=== PATIENT | male | born 1940 | race Caucasian/White ===

== ENCOUNTER 2019-10-13 15:43 | Inpatient (IN) | payer OTHER ==
--- NOTE | 2019-10-13 15:52 | EDM.PDOC ---
ED HPI GENERAL MEDICAL PROBLEM - General Chief Complaint: Respiratory Problem Stated Complaint: PNEUMONIA Time Seen by Provider: 10/13/19 15:45 - History of Present Illness INITIAL COMMENTS - FREE TEXT/NARRATIVE: HISTORY AND PHYSICAL: History of present illness: Vision is 71-year-old male who follows at the [facility] but is new to this area and has a history of coronary artery disease with a stent COPD diabetes chronic pain and to side the provider at the [facility] last week on October 05 for cold symptoms for several days and had a chest x-ray here at our hospital; the chest x-ray revealed increased densities in bilateral lower lobes and it was a question of fluid versus pneumonia and the patient was given a Z-Reed. He took the Z-Reed and said he did feel somewhat better with the symptoms have returned and worsened. He says he is buddhism about using his nebulizer as scheduled and takes his medications which does include Bumex and he has a history of congestive heart failure. The patient denies any pain or fevers with this and has no current chest pain and feels intermittently short of breath. He has had a cough productive of phlegm which she says is greenish but he has not had documented fever or chills. His abdominal pain and was eating and drinking normally with normal urine output. The patient says that he does not sleep in bed and he sleeps in a recliner but he has no leg pain or swelling. The symptoms are very protracted and seemed to have progressed over the last 1 week and as the patient is new to the area and is not very well known by the provider at the [facility] and his prior provider was back at home in [place] teasing what is new and what is different is challenging. It appears to me that the patient feels that his shortness of breath cough productive of phlegm and generalized weakness is what is new. Feeling like he is improving since he took the antibiotics. Review of systems: As per history of present illness and below otherwise all systems reviewed and negative. Past medical history: As per history of present illness and as reviewed below otherwise noncontributory. Surgical history: As per history of present illness and as reviewed below otherwise noncontributory. Social history: No reported history of drug or alcohol abuse. Family history: As per history of present illness and as reviewed below otherwise noncontributory. Physical exam: : Well-developed well-nourished overweight man who is nontoxic and not breathless on evaluation. Vital signs are noted by me HEENT: Atraumatic, normocephalic, negative for conjunctival pallor or scleral icterus, mucous membranes moist, throat clear, neck supple, nontender, trachea midline. Lungs: Poor air exchange bilaterally but worse in the bases to mid field with some crackles and rales and fine wheezing is appreciated, there is no work or breathing breath sounds equal bilaterally, chest nontender. Heart: S1S2, regular, negative for clicks, rubs, or overt murmurs Abdomen: Soft, nondistended, nontender. Negative for masses or hepatosplenomegaly. Negative for costovertebral tenderness. Pelvis: Stable nontender. Genitourinary: Deferred. Rectal: Deferred. Extremities: Atraumatic, negative for cords or calf pain. Neurovascular unremarkable. No pedal edema or leg asymmetry Neuro: Awake, alert, oriented. Cranial nerves II through XII unremarkable. Cerebellum unremarkable. Motor and sensory unremarkable throughout. Exam nonfocal. Diagnostics: EKG CBC CMP BNP INR UA lactic acid chest x-ray blood cultures Therapeutics: IV O2 monitor DuoNeb solu- Medrol dose and Lasix Zosyn Patient is not feeling any improved after the DuoNeb and he still very oxygen dependent and is using 3 L nasal cannula and in the ED is currently satting 95% . He has been using this amount of oxygen for quite some time. 181: Case was discussed with Dr. Nowak and she would like a dose of Lasix 40 mg to be given as well as blood cultures to be done and Zosyn IV antibiotics and she agrees that there is probably some fluid overload and pneumonia and she would like an inpatient telemetry admission. I discussed all testing results with the patient and daughter at bedside and care plan for admission Impression: Bibasilar pneumonia, fluid overload, history of COPD oxygen dependent Definitive disposition and diagnosis as appropriate pending reevaluation and review of above. - Related Data Allergies Allergy/AdvReac Type Severity Reaction Status Date / Time atorvastatin Allergy Other Verified 10/13/19 16:06 bupropion [From Wellbutrin] Allergy Other Verified 10/13/19 16:12 duloxetine HCl Allergy Rash Verified 10/13/19 15:52 [From Cymbalta] Iodinated Contrast Media Allergy Other Verified 10/13/19 16:08 meloxicam Allergy Other Verified 10/13/19 16:08 metformin Allergy Other Verified 10/13/19 16:11 naproxen Allergy Other Verified 10/13/19 16:09 paroxetine Allergy Other Verified 10/13/19 16:10 sertraline HCl [From Zoloft] Allergy Rash Verified 10/13/19 15:52 venlafaxine [From Effexor] Allergy oth Verified 10/13/19 16:07 Home Meds: Home Meds Albuterol Sulfate [Albuterol Sulfate Hfa] 2 inh IH Q6H PRN 10/13/19 [History] Albuterol/Ipratropium [DuoNeb 3.0-0.5 MG/3 ML] 3 ml NEB Q6H 10/13/19 [History] Aspirin [Ecotrin EC] 81 mg PO DAILY 10/13/19 [History] Budesonide/Formoterol Fumarate [Symbicort 160-4.5 Mcg Inhaler] 2 inh IH Q12H [History] Citalopram [Citalopram HBr] 10 mg PO DAILY 10/13/19 [History] Clopidogrel [Plavix] 75 mg PO DAILY 10/13/19 [History] Diclofenac Sodium [Voltaren 1% Gel] 4 gm TOP QID PRN MDD total body dose 32gm max 10/13/19 [History] Gabapentin [Neurontin] 300 mg PO BID@,18 10/13/19 [History] Gabapentin [Neurontin] 600 mg PO BID 10/13/19 [History] Hydrocodone/Acetaminophen [Hollister 10-325 Tablet] 10 - 325 mg PO TID PRN 10/13/19 [History] Insulin Aspart [NovoLOG] 12 unit SUBCUT BID@,12 10/13/19 [History] Insulin Aspart [NovoLOG] 15 unit SUBCUT WITHDINNER 10/13/19 [History] Insulin Glarg,Human.Rec.Analog [Lantus Solostar] 28 unit SUBCUT BID 10/13/19 [ History] Lidocaine 5% [Lidoderm 5%] 2 patch TD .ON 12 HR, OFF 12 HR 10/13/19 [History] Metoprolol Tartrate 50 mg PO BID 10/13/19 [History] [place]-3/DHA/Epa/Fish Oil [Fish Oil 1,000 mg Softgel] 1,000 mg PO BID 10/13/19 [ History] Pantoprazole [ProTONIX] 40 mg PO DAILY 10/13/19 [History] Polyethylene Glycol 3350 [MiraLAX] 17 gm PO DAILY 10/13/19 [History] Rosuvastatin Calcium [Crestor] 40 mg PO BEDTIME 10/13/19 [History] Spironolactone [Aldactone] 50 mg PO DAILY 10/13/19 [History] metFORMIN HCl [Metformin HCl ER] 750 mg PO WITHBREAKFAST 10/13/19 [History] ED ROS GENERAL - Review of Systems Review Of Systems: Comprehensive ROS is negative, except as noted in HPI. ED EXAM, GENERAL - Physical Exam Exam: See Below (see Dictation) Course - Vital Signs Last Recorded V/S: Last Vital Signs Temp 36.6 C 10/13/19 15:47 Pulse 92 10/13/19 18:09 Resp 18 10/13/19 18:09 BP 130/72 10/13/19 18:09 Pulse Ox 95 10/13/19 18:09 - Orders/Labs/Meds Orders: Active Orders 24 hr Category Date Time Status Patient Status [ADT] Stat ADT 10/13/19 18:15 Ordered Blood Glucose Check, Bedside [RC] ONETIME Care 10/13/19 16:18 Active Cardiac Monitoring [RC] . DIRECTED Care 10/13/19 16:17 Active EKG Documentation Completion [RC] STAT Care 10/13/19 16:17 Active Oxygen Therapy, ED [RC] ASDIRECTED Care 10/13/19 16:17 Active Pulse Oximetry [RC] ASDIRECTED Care 10/13/19 16:17 Active RT Aerosol Therapy [RC] ASDIRECTED Care 10/13/19 16:19 Active B-TYPE NATRIURETIC PEPTIDE,BNP [CHEM] Stat Lab 10/13/19 17:12 Received CULTURE BLOOD [BC] Stat Lab 10/13/19 18:14 Ordered CULTURE BLOOD [BC] Stat Lab 10/13/19 18:14 Ordered UA RFX CHARLENE AND CULT IF INDIC [URIN] Stat Lab 10/13/19 16:19 Ordered Furosemide [Lasix] Med 10/13/19 18:14 Once 40 mg IVPUSH NOW ONE Piperacillin/Tazobactam [Piperacil-Tazobact] 4.5 gm Med 10/13/19 18:14 Ordered Sodium Chloride 0.9% [Normal Saline] 100 ml IV ONETIME Sodium Chloride 0.9% [Saline Flush] Med 10/13/19 16:19 Active 10 ml FLUSH ASDIRECTED PRN Sodium Chloride 0.9% [Saline Flush] Med 10/13/19 16:19 Active 2.5 ml FLUSH ASDIRECTED PRN Blood Culture x2 Reflex Set [OM.PC] Stat Ot 10/13/19 18:14 Ordered Saline Lock Insert [OM.PC] Stat Ot 10/13/19 16:17 Ordered Medication Orders Sodium Chloride (Saline Flush) 10 ml FLUSH ASDIRECTED PRN PRN Reason: Keep Vein Open Sodium Chloride (Saline Flush) 2.5 ml FLUSH ASDIRECTED PRN PRN Reason: Keep Vein Open Labs: Laboratory Tests 10/13/19 10/13/19 10/13/19 Range/Units 17:12 17:12 17:12 WBC 14.61 H (4.0-11.0) K/uL RBC 4.85 (4.50-5.90) M/uL Hgb 14.1 (13.0-17.0) g/dL Hct 43.8 (38.0-50.0) % MCV 90.3 (80.0-98.0) fL MCH 29.1 (27.0-32.0) pg MCHC 32.2 (31.0-37.0) g/dL RDW Std Deviation 51.2 (28.0-62.0) fl RDW Coeff of Rocco 15 (11.0-15.0) % Plt Count 288 (150-400) K/uL MPV 9.90 (7.40-12.00) fL Neut % (Auto) 59.6 (48.0-80.0) % Lymph % (Auto) 33.7 (16.0-40.0) % [place] % (Auto) 5.5 (0.0-15.0) % Eos % (Auto) 1.0 (0.0-7.0) % Baso % (Auto) 0.2 (0.0-1.5) % Neut # (Auto) 8.7 H (1.4-5.7) K/uL Lymph # (Auto) 4.9 H (0.6-2.4) K/uL [place] # (Auto) 0.8 (0.0-0.8) K/uL Eos # (Auto) 0.2 (0.0-0.7) K/uL Baso # (Auto) 0.0 (0.0-0.1) K/uL Nucleated RBC % 0.0 /100WBC Nucleated RBCs # 0 K/uL INR 0.96 Lactate (0.20-2.00) mmol/L Sodium 139 (136-148) mmol/L Potassium 4.8 (3.5-5.1) mmol/L Chloride 96 L (98-107) mmol/L Carbon Dioxide 37.2 H (21.0-32.0) mmol/L BUN 25 H (7.0-18.0) mg/dL Creatinine 1.1 (0.8-1.3) mg/dL Est Cr Clr Drug Dosing 57.15 mL/min Estimated GFR (MDRD) > 60.0 ml/min Glucose 253 H (74-106) mg/dL POC Glucose (60-110) mg/dL Calcium 9.4 (8.5-10.1) mg/dL Total Bilirubin 0.2 (0.2-1.0) mg/dL AST 13 L (15-37) IU/L ALT 21 (14-63) IU/L Alkaline Phosphatase 106 (46-116) U/L Troponin I < 0.050 (0.000-0.056) ng/mL Total Protein 7.4 (6.4-8.2) g/dL Albumin 3.4 (3.4-5.0) g/dL Globulin 4.0 (2.6-4.0) g/dL Albumin/Globulin Ratio 0.9 (0.9-1.6) 10/13/19 10/13/19 Range/Units 17:12 17:15 WBC (4.0-11.0) K/uL RBC (4.50-5.90) M/uL Hgb (13.0-17.0) g/dL Hct (38.0-50.0) % MCV (80.0-98.0) fL MCH (27.0-32.0) pg MCHC (31.0-37.0) g/dL RDW Std Deviation (28.0-62.0) fl RDW Coeff of Rocco (11.0-15.0) % Plt Count (150-400) K/uL MPV (7.40-12.00) fL Neut % (Auto) (48.0-80.0) % Lymph % (Auto) (16.0-40.0) % [place] % (Auto) (0.0-15.0) % Eos % (Auto) (0.0-7.0) % Baso % (Auto) (0.0-1.5) % Neut # (Auto) (1.4-5.7) K/uL Lymph # (Auto) (0.6-2.4) K/uL [place] # (Auto) (0.0-0.8) K/uL Eos # (Auto) (0.0-0.7) K/uL Baso # (Auto) (0.0-0.1) K/uL Nucleated RBC % /100WBC Nucleated RBCs # K/uL INR Lactate 1.9 (0.20-2.00) mmol/L Sodium (136-148) mmol/L Potassium (3.5-5.1) mmol/L Chloride (98-107) mmol/L Carbon Dioxide (21.0-32.0) mmol/L BUN (7.0-18.0) mg/dL Creatinine (0.8-1.3) mg/dL Est Cr Clr Drug Dosing mL/min Estimated GFR (MDRD) ml/min Glucose (74-106) mg/dL POC Glucose 240 H (60-110) mg/dL Calcium (8.5-10.1) mg/dL Total Bilirubin (0.2-1.0) mg/dL AST (15-37) IU/L ALT (14-63) IU/L Alkaline Phosphatase (46-116) U/L Troponin I (0.000-0.056) ng/mL Total Protein (6.4-8.2) g/dL Albumin (3.4-5.0) g/dL Globulin (2.6-4.0) g/dL Albumin/Globulin Ratio (0.9-1.6) Meds: Medications Generic Name Dose Route Start Last Admin Trade Name Freq PRN Reason Stop Dose Admin Sodium Chloride 10 ml 10/13/19 16:19 Saline Flush FLUSH ASDIRECTED PRN Keep Vein Open Sodium Chloride 2.5 ml 10/13/19 16:19 Saline Flush FLUSH ASDIRECTED PRN Keep Vein Open Discontinued Medications Generic Name Dose Route Start Last Admin Trade Name Mariana PRN Reason Stop Dose Admin Albuterol/Ipratropium 3 ml 10/13/19 16:19 10/13/19 16:26 Duoneb 3.0-0.5 Mg/3 Ml NEB 10/13/19 16:20 3 ml ONETIME ONE Administration Methylprednisolone Sodium Succinate 125 mg 10/13/19 16:19 10/13/19 16:26 Solu-Medrol IVPUSH 10/13/19 16:20 125 mg ONETIME ONE Administration Departure - Departure Time of Disposition: 18:17 Disposition: Admitted As Inpatient 67 Condition: Fair Clinical Impression: Pneumonia Qualifiers: Pneumonia type: due to unspecified organism Fluid overload Qualifiers: Hypervolemia type: unspecified Qualified Code(s): E87.70 - Fluid overload, unspecified - Discharge Information Referrals: PCP,None [Primary Care Provider] - Forms: ED Department Discharge - My Orders Last 24 Hours: My Active Orders 10/13/19 16:17 Cardiac Monitoring [RC] . DIRECTED EKG Documentation Completion [RC] STAT Oxygen Therapy, ED [RC] ASDIRECTED Pulse Oximetry [RC] ASDIRECTED Saline Lock Insert [OM.PC] Stat 10/13/19 16:18 Blood Glucose Check, Bedside [RC] ONETIME 10/13/19 16:19 RT Aerosol Therapy [RC] ASDIRECTED UA RFX CHARLENE AND CULT IF INDIC [URIN] Stat Sodium Chloride 0.9% [Saline Flush] 10 ml FLUSH ASDIRECTED PRN Sodium Chloride 0.9% [Saline Flush] 2.5 ml FLUSH ASDIRECTED PRN 10/13/19 17:12 B-TYPE NATRIURETIC PEPTIDE,BNP [CHEM] Stat 10/13/19 18:14 CULTURE BLOOD [BC] Stat CULTURE BLOOD [BC] Stat Furosemide [Lasix] 40 mg IVPUSH NOW ONE Piperacillin/Tazobactam [Piperacil-Tazobact] 4.5 gm Sodium Chloride 0.9% [ Normal Saline] 100 ml IV ONETIME Blood Culture x2 Reflex Set [OM.PC] Stat 10/13/19 18:15 Patient Status [ADT] Stat - Assessment/Plan Last 24 Hours: My Active Orders 10/13/19 16:17 Cardiac Monitoring [RC] . DIRECTED EKG Documentation Completion [RC] STAT Oxygen Therapy, ED [RC] ASDIRECTED Pulse Oximetry [RC] ASDIRECTED Saline Lock Insert [OM.PC] Stat 10/13/19 16:18 Blood Glucose Check, Bedside [RC] ONETIME 10/13/19 16:19 RT Aerosol Therapy [RC] ASDIRECTED UA RFX CHARLENE AND CULT IF INDIC [URIN] Stat Sodium Chloride 0.9% [Saline Flush] 10 ml FLUSH ASDIRECTED PRN Sodium Chloride 0.9% [Saline Flush] 2.5 ml FLUSH ASDIRECTED PRN 10/13/19 17:12 B-TYPE NATRIURETIC PEPTIDE,BNP [CHEM] Stat 10/13/19 18:14 CULTURE BLOOD [BC] Stat CULTURE BLOOD [BC] Stat Furosemide [Lasix] 40 mg IVPUSH NOW ONE Piperacillin/Tazobactam [Piperacil-Tazobact] 4.5 gm Sodium Chloride 0.9% [ Normal Saline] 100 ml IV ONETIME Blood Culture x2 Reflex Set [OM.PC] Stat 10/13/19 18:15 Patient Status [ADT] Stat
[2019-10-13] MEDS ORDERED: Sodium Chloride 0.9% 2.5 ML Syringe FLUSH PRN (16:19)
[2019-10-13] MEDS ORDERED: Albuterol/Ipratropium 3.0-0.5 MG/3 ML Neb Soln NEB ONE (16:19)
[2019-10-13] MEDS ORDERED: Sodium Chloride 0.9% 10 ML Syringe FLUSH PRN (16:19)
[2019-10-13] MEDS ORDERED: methylPREDNISolone Sodium Succinate 125 MG/2 ML SDV IVPUSH ONE (16:19)
--- NOTE | 2019-10-13 17:13 | CR ---
Indication: Shortness of breath. Technique: A single AP portable view of the chest was obtained. Comparison: October 05, 2019. Findings: The heart is enlarged. A left pleural effusion is identified. Bibasilar atelectasis and/or infiltrates are improved. No pneumothorax is identified. Impression: Improved aeration bilaterally. Dictated by Iveth Mello MD @ Oct 13 2019 5:09PM Signed by Dr. Iveth Mello @ Oct 13 2019 5:10PM
[2019-10-13 18:00] LABS: BLOOD UREA NITROGEN,BUN 25 mg/dL (7.0-18.0); CARBON DIOXIDE,CO2 37.2 mmol/L (21.0-32.0); CHLORIDE,CL 96 mmol/L (98-107); GLUCOSE RANDOM 253 mg/dL (74-106); POTASSIUM,K 4.8 mmol/L (3.5-5.1); SODIUM,NA 139 mmol/L (136-148)
[2019-10-13] MEDS ORDERED: Piperacillin/Tazobactam 4.5 GM in Sodium Chloride 0.9% 100 ML IV ONE (18:14)
[2019-10-13] MEDS ORDERED: Furosemide 40 MG/4 ML VIAL IVPUSH ONE (18:14)
[2019-10-13] MEDS ORDERED: Acetaminophen 325 MG Tab PO PRN (18:43)
[2019-10-13] MEDS ORDERED: Morphine 10 MG/ML Syringe IVPUSH PRN (18:43)
[2019-10-13] MEDS ORDERED: Ondansetron 4 MG Tab.DIS PO PRN (18:43)
[2019-10-13] MEDS ORDERED: Ondansetron 4 MG/2 ML SDV IVPUSH PRN (18:43)
[2019-10-13] MEDS ORDERED: Sodium Chloride 0.9% 1,000 ML IV ONE (18:58)
[2019-10-13] MEDS: cefTRIAXone 1 GM in Premix Bag 1 BAG IV SCH (19:06)
[2019-10-13] MEDS: Enoxaparin 40 MG/0.4 ML Syringe SUBCUT SCH (19:36)
--- NOTE | 2019-10-13 20:06 | PCM.HP.2 ---
<Cherelle Joel Nolan - Last Filed: 10/13/19 20:09> H&P History of Present Illness - General Date of Service: 10/13/19 Admit Problem/Dx: Admission Diagnosis/Problem Admission Diagnosis/Problem Pneumonia - History of Present Illness Initial Comments - Free Text/Narative: 79 y/o male with history of CAD s/p stent placement, COPD, Diabetes type 2 who presented to the ER complaining of worsening shortness of breath. Patient had been seen at the [facility] about 1 week ago for pneumonia and given z-pack, however, it did not help. He continues to have a productive cough, subjective fevers. Worsening shortness of breath. No nausea or vomiting. No chest pain, abdominal pain, dysuria, diarrhea. States he has been taking his meds as directed. uses supplemental O2 at home at 3 L. Recently moved from [place] with his daughter. No smoking or drinking. In the ER , he was found to have WBC 14K, tachypneic. He was given one dose of lasix for suspected fluid overload since chest xray showed left pleural effusion and infiltrates. - Related Data Allergies/Adverse Reactions: Allergies Allergy/AdvReac Type Severity Reaction Status Date / Time atorvastatin Allergy Other Verified 10/14/19 12:51 bupropion [From Wellbutrin] Allergy Other Verified 10/14/19 12:51 duloxetine HCl Allergy Rash Verified 10/14/19 12:51 [From Cymbalta] Iodinated Contrast Media Allergy Other Verified 10/14/19 12:51 meloxicam Allergy Other Verified 10/14/19 12:51 metformin Allergy Other Verified 10/14/19 12:51 naproxen Allergy Other Verified 10/14/19 12:51 paroxetine Allergy Other Verified 10/14/19 12:51 sertraline HCl [From Zoloft] Allergy Rash Verified 10/14/19 12:51 venlafaxine [From Effexor] Allergy oth Verified 10/14/19 12:51 Home Medications: Home Meds Albuterol Sulfate [Albuterol Sulfate Hfa] 2 inh IH Q6H PRN 10/13/19 [History] Albuterol/Ipratropium [DuoNeb 3.0-0.5 MG/3 ML] 3 ml NEB Q6H 10/13/19 [History] Aspirin [Ecotrin EC] 81 mg PO DAILY 10/13/19 [History] Budesonide/Formoterol Fumarate [Symbicort 160-4.5 Mcg Inhaler] 2 inh IH Q12H [History] Citalopram [Citalopram HBr] 10 mg PO DAILY 10/13/19 [History] Clopidogrel [Plavix] 75 mg PO DAILY 10/13/19 [History] Diclofenac Sodium [Voltaren 1% Gel] 4 gm TOP QID PRN MDD total body dose 32gm max 10/13/19 [History] Gabapentin [Neurontin] 300 mg PO BID@12,18 10/13/19 [History] Gabapentin [Neurontin] 600 mg PO BID 10/13/19 [History] Hydrocodone/Acetaminophen [[place] 10-325 Tablet] 10 - 325 mg PO TID PRN 10/13/19 [History] Insulin Aspart [NovoLOG] 12 unit SUBCUT BID@08,12 10/13/19 [History] Insulin Aspart [NovoLOG] 15 unit SUBCUT WITHDINNER 10/13/19 [History] Insulin Glarg,Human.Rec.Analog [Lantus Solostar] 28 unit SUBCUT BID 10/13/19 [ History] Lidocaine 5% [Lidoderm 5%] 2 patch TD .ON 12 HR, OFF 12 HR 10/13/19 [History] Metoprolol Tartrate 50 mg PO BID 10/13/19 [History] [place]-3/DHA/Epa/Fish Oil [Fish Oil 1,000 mg Softgel] 1,000 mg PO BID 10/13/19 [ History] Pantoprazole [ProTONIX] 40 mg PO DAILY 10/13/19 [History] Polyethylene Glycol 3350 [MiraLAX] 17 gm PO DAILY 10/13/19 [History] Rosuvastatin Calcium [Crestor] 40 mg PO BEDTIME 10/13/19 [History] Spironolactone [Aldactone] 50 mg PO DAILY 10/13/19 [History] metFORMIN HCl [Metformin HCl ER] 750 mg PO WITHBREAKFAST 10/13/19 [History] Nitroglycerin 1 tab SL ASDIRECTED PRN MDD may take up to 3 within 15 min [History] Past Medical History HEENT History: Reports: None Cardiovascular History: Reports: Stents Respiratory History: Reports: Asthma, COPD Gastrointestinal History: Reports: Diverticulosis Genitourinary History: Reports: None Musculoskeletal History: Reports: None Neurological History: Reports: None Psychiatric History: Reports: Anxiety, Depression, Panic Attack Endocrine/Metabolic History: Reports: Diabetes, Type II Hematologic History: Reports: None Immunologic History: Reports: None Oncologic (Cancer) History: Reports: None Dermatologic History: Reports: None - Infectious Disease History Infectious Disease History: Reports: None - Past Surgical History Head Surgeries/Procedures: Reports: None Other Cardiovascular Surgeries/Procedures: 2004 2017 GI Surgical History: Reports: Colonoscopy Male Surgical History: Reports: None Social & Family History - Tobacco Use Smoking Status *Q: Never Smoker Second Hand Smoke Exposure: No - Caffeine Use Caffeine Use: Reports: None - Recreational Drug Use Recreational Drug Use: No H&P Review of Systems - Review of Systems: Review Of Systems: Comprehensive ROS is negative, except as noted in HPI. Exam - Exam Exam: See Below - Vital Signs Vital Signs: Last Vital Signs Temp 35.8 C 10/13/19 18:41 Pulse 98 10/13/19 19:38 Resp 24 H 10/13/19 19:38 BP 130/75 10/13/19 19:38 Pulse Ox 96 10/13/19 19:38 Weight: 113.398 kg - Exam Quality Assessment: Supplemental Oxygen General: Alert, Oriented, Cooperative HEENT: Other (dry mucosa) Lungs: Other (decreased breath sounds bilaterally, crackles with some mild wheezing.) Cardiovascular: Regular Rate, Regular Rhythm GI/Abdominal Exam: Normal Bowel Sounds, Soft, Non-Tender, No Distention Extremities: Normal Inspection, Non-Tender, No Pedal Edema Skin: Warm, Dry - Patient Data Lab Results Last 24 hrs: Laboratory Results - last 24 hr 10/13/19 10/13/19 10/13/19 Range/Units 17:12 17:12 17:12 WBC 14.61 H (4.0-11.0) K/uL RBC 4.85 (4.50-5.90) M/uL Hgb 14.1 (13.0-17.0) g/dL Hct 43.8 (38.0-50.0) % MCV 90.3 (80.0-98.0) fL MCH 29.1 (27.0-32.0) pg MCHC 32.2 (31.0-37.0) g/dL RDW Std Deviation 51.2 (28.0-62.0) fl RDW Coeff of Rocco 15 (11.0-15.0) % Plt Count 288 (150-400) K/uL MPV 9.90 (7.40-12.00) fL Neut % (Auto) 59.6 (48.0-80.0) % Lymph % (Auto) 33.7 (16.0-40.0) % [place] % (Auto) 5.5 (0.0-15.0) % Eos % (Auto) 1.0 (0.0-7.0) % Baso % (Auto) 0.2 (0.0-1.5) % Neut # (Auto) 8.7 H (1.4-5.7) K/uL Lymph # (Auto) 4.9 H (0.6-2.4) K/uL [place] # (Auto) 0.8 (0.0-0.8) K/uL Eos # (Auto) 0.2 (0.0-0.7) K/uL Baso # (Auto) 0.0 (0.0-0.1) K/uL Nucleated RBC % 0.0 /100WBC Nucleated RBCs # 0 K/uL INR Lactate (0.20-2.00) mmol/L Sodium 139 (136-148) mmol/L Potassium 4.8 (3.5-5.1) mmol/L Chloride 96 L (98-107) mmol/L Carbon Dioxide 37.2 H (21.0-32.0) mmol/L BUN 25 H (7.0-18.0) mg/dL Creatinine 1.1 (0.8-1.3) mg/dL Est Cr Clr Drug Dosing 57.15 mL/min Estimated GFR (MDRD) > 60.0 ml/min Glucose 253 H (74-106) mg/dL POC Glucose (60-110) mg/dL Calcium 9.4 (8.5-10.1) mg/dL Total Bilirubin 0.2 (0.2-1.0) mg/dL AST 13 L (15-37) IU/L ALT 21 (14-63) IU/L Alkaline Phosphatase 106 (46-116) U/L Troponin I < 0.050 (0.000-0.056) ng/mL B-Natriuretic Peptide 8 (<100) PG/ML Total Protein 7.4 (6.4-8.2) g/dL Albumin 3.4 (3.4-5.0) g/dL Globulin 4.0 (2.6-4.0) g/dL Albumin/Globulin Ratio 0.9 (0.9-1.6) 10/13/19 10/13/19 10/13/19 Range/Units 17:12 17:12 17:15 WBC (4.0-11.0) K/uL RBC (4.50-5.90) M/uL Hgb (13.0-17.0) g/dL Hct (38.0-50.0) % MCV (80.0-98.0) fL MCH (27.0-32.0) pg MCHC (31.0-37.0) g/dL RDW Std Deviation (28.0-62.0) fl RDW Coeff of Rocco (11.0-15.0) % Plt Count (150-400) K/uL MPV (7.40-12.00) fL Neut % (Auto) (48.0-80.0) % Lymph % (Auto) (16.0-40.0) % [place] % (Auto) (0.0-15.0) % Eos % (Auto) (0.0-7.0) % Baso % (Auto) (0.0-1.5) % Neut # (Auto) (1.4-5.7) K/uL Lymph # (Auto) (0.6-2.4) K/uL [place] # (Auto) (0.0-0.8) K/uL Eos # (Auto) (0.0-0.7) K/uL Baso # (Auto) (0.0-0.1) K/uL Nucleated RBC % /100WBC Nucleated RBCs # K/uL INR 0.96 Lactate 1.9 (0.20-2.00) mmol/L Sodium (136-148) mmol/L Potassium (3.5-5.1) mmol/L Chloride (98-107) mmol/L Carbon Dioxide (21.0-32.0) mmol/L BUN (7.0-18.0) mg/dL Creatinine (0.8-1.3) mg/dL Est Cr Clr Drug Dosing mL/min Estimated GFR (MDRD) ml/min Glucose (74-106) mg/dL POC Glucose 240 H (60-110) mg/dL Calcium (8.5-10.1) mg/dL Total Bilirubin (0.2-1.0) mg/dL AST (15-37) IU/L ALT (14-63) IU/L Alkaline Phosphatase (46-116) U/L Troponin I (0.000-0.056) ng/mL B-Natriuretic Peptide (<100) PG/ML Total Protein (6.4-8.2) g/dL Albumin (3.4-5.0) g/dL Globulin (2.6-4.0) g/dL Albumin/Globulin Ratio (0.9-1.6) Result Diagrams: 10/13/19 17:12 10/13/19 17:12 Problem List Initiated/Reviewed/Updated: Yes Orders Last 24hrs: Active Orders 24 hr Category Date Time Status Patient Status [ADT] Stat ADT 10/13/19 18:15 Active Blood Glucose Check, Bedside [RC] QIDACANDBED Care 10/13/19 18:43 Active Cardiac Monitoring [RC] . DIRECTED Care 10/13/19 16:17 Active Intake and Output [RC] QSHIFT Care 10/13/19 18:43 Active Oxygen Therapy [RC] PRN Care 10/13/19 18:43 Active RT Aerosol Therapy [RC] ASDIRECTED Care 10/13/19 16:19 Active RT Aerosol Therapy [RC] ASDIRECTED Care 10/13/19 18:45 Active Up With Assistance [RC] ASDIRECTED Care 10/13/19 18:43 Active VTE/DVT Education [RC] PER UNIT ROUTINE Care 10/13/19 18:43 Active Vital Signs [RC] Q4H Care 10/13/19 18:43 Active [employer] Diet [DIET] Diet 10/13/19 Dinner Active CBC WITH AUTO DIFF [HEME] AM Lab 10/14/19 05:11 Ordered CBC WITH AUTO DIFF [HEME] AM Lab 10/15/19 05:11 Ordered CBC WITH AUTO DIFF [HEME] AM Lab 10/16/19 05:11 Ordered COMPREHENSIVE METABOLIC PN,CMP [CHEM] AM Lab 10/14/19 05:11 Ordered COMPREHENSIVE METABOLIC PN,CMP [CHEM] AM Lab 10/15/19 05:11 Ordered COMPREHENSIVE METABOLIC PN,CMP [CHEM] AM Lab 10/16/19 05:11 Ordered CULTURE BLOOD [BC] Stat Lab 10/13/19 18:38 Received CULTURE BLOOD [BC] Stat Lab 10/13/19 18:49 Received CULTURE SPUTUM + SMEAR [RM] Routine Lab 10/13/19 19:58 Ordered INFLUENZA A+B AG SCREEN [RM] Routine Lab 10/13/19 18:56 Ordered LEGIONELLA ANTIGEN [MREF] Routine Lab 10/13/19 18:55 Ordered STREP PNEUMONIAE ANTIGEN [MREF] Routine Lab 10/13/19 18:55 Ordered UA RFX JASON AND CULT IF INDIC [URIN] Stat Lab 10/13/19 16:19 Ordered Acetaminophen [Tylenol] Med 10/13/19 18:43 Active 650 mg PO Q4H PRN Albuterol/Ipratropium [DuoNeb 3.0-0.5 MG/3 ML] Med 10/13/19 18:43 Active 3 ml NEB Q4HRRT PRN Aspirin [Halfprin] Med 10/14/19 09:00 Active 81 mg PO DAILY Azithromycin [Zithromax] 500 mg Med 10/13/19 19:00 Active Sodium Chloride 0.9% [Normal Saline (AdvBag)] 250 ml IV DAILY Benzonatate [Tessalon Perles] Med 10/13/19 21:00 Ordered 200 mg PO BID Clopidogrel [Plavix] Med 10/14/19 09:00 Active 75 mg PO DAILY Codeine/guaiFENesin [Robitussin AC] Med 10/13/19 19:58 Ordered 5 ml PO Q6H PRN Enoxaparin [Lovenox] Med 10/13/19 18:45 Active 40 mg SUBCUT Q24H Insulin Aspart [NovoLOG] Med 10/14/19 07:30 Active See Protocol SUBCUT TIDAC Morphine Med 10/13/19 18:43 Active 2 mg IVPUSH Q2H PRN Ondansetron [Zofran ODT] Med 10/13/19 18:43 Active 4 mg PO Q4H PRN Ondansetron [Zofran] Med 10/13/19 18:43 Active 4 mg IVPUSH Q4H PRN Pantoprazole [ProTONIX] Med 10/14/19 09:00 Active 40 mg PO DAILY Sodium Chloride 0.9% [Normal Saline] 1,000 ml Med 10/13/19 18:58 Active IV STAT Sodium Chloride 0.9% [Saline Flush] Med 10/13/19 16:19 Active 10 ml FLUSH ASDIRECTED PRN Sodium Chloride 0.9% [Saline Flush] Med 10/13/19 16:19 Active 2.5 ml FLUSH ASDIRECTED PRN cefTRIAXone [Rocephin in Dextrose,Iso-Osm 1 GM/50 ML] 1 Med 10/13/19 19:00 Active gm Premix Bag 1 bag IV Q24H methylPREDNISolone Sod Succ [Solu-MEDROL] Med 10/14/19 09:00 Ordered 40 mg IVPUSH DAILY Blood Culture x2 Reflex Set [OM.PC] Stat Oth 10/13/19 18:14 Ordered Saline Lock Insert [OM.PC] Stat Oth 10/13/19 16:17 Ordered Resuscitation Status Routine Resus Stat 10/13/19 18:43 Ordered Medication Orders Acetaminophen (Tylenol) 650 mg PO Q4H PRN PRN Reason: Pain (Mild 1-3)/fever Albuterol/Ipratropium (Duoneb 3.0-0.5 Mg/3 Ml) 3 ml NEB Q4HRRT PRN PRN Reason: Shortness Of Breath/wheezing Aspirin (Halfprin) 81 mg PO DAILY [facility] Clopidogrel Bisulfate (Plavix) 75 mg PO DAILY [facility] Enoxaparin Sodium (Lovenox) 40 mg SUBCUT Q24H [facility] Last Admin: 10/13/19 19:36 Dose: 40 mg Guaifenesin/Codeine Phosphate (Robitussin Ac) 5 ml PO Q6H PRN PRN Reason: Cough Azithromycin 500 mg/ Sodium (Chloride) 250 mls @ 250 mls/hr IV DAILY [facility] Ceftriaxone Sodium/Dextrose 1 (gm/ Premix) 50 mls @ 100 mls/hr IV Q24H [facility] Last Admin: 10/13/19 19:06 Dose: 100 mls/hr Sodium Chloride (Normal Saline) 1,000 mls @ 150 mls/hr IV STAT ONE Stop: 10/14/19 01:37 Last Admin: 10/13/19 19:06 Dose: 150 mls/hr Insulin Aspart (Novolog) 0 unit SUBCUT TIDAC MAGEN; Protocol Morphine Sulfate (Morphine) 2 mg IVPUSH Q2H PRN PRN Reason: Pain (severe 7-10) Stop: 10/14/19 18:44 Ondansetron HCl (Zofran Odt) 4 mg PO Q4H PRN PRN Reason: nausea, able to take PO Ondansetron HCl (Zofran) 4 mg IVPUSH Q4H PRN PRN Reason: Nausea Pantoprazole Sodium (Protonix) 40 mg PO DAILY [facility] Sodium Chloride (Saline Flush) 10 ml FLUSH ASDIRECTED PRN PRN Reason: Keep Vein Open Sodium Chloride (Saline Flush) 2.5 ml FLUSH ASDIRECTED PRN PRN Reason: Keep Vein Open Assessment/Plan Comment:: A: 1. Sepsis 2/2 community acquired pneumonia vs COPD exacerbation 2. Leukocytosis 3. PMH COPD, DM2 P: 1. Will start ceftriaxone and azithromycin for suspected CAP vs COPD exacerbation. Continue methylprednisolone 40 mg IV daily. duonebs PRN. Added cough syrup and tessalon perles for cough. Will start maintenance fluids since patient looks overall dry with serum osm 300. Did not bolus patient due to suspicion for fluid overload. Accuchecks and ISS. Dispo: 2-3 days <Carmen Tineo - Last Filed: 10/16/19 09:30> H&P History of Present Illness - General Admit Problem/Dx: Admission Diagnosis/Problem Admission Diagnosis/Problem Pneumonia Exam - Vital Signs Vital Signs: Last Vital Signs Temp 35.7 C 10/16/19 07:53 Pulse 97 10/16/19 09:16 Resp 17 10/16/19 07:53 BP 160/73 H 10/16/19 09:16 Pulse Ox 94 L 10/16/19 07:53 - Patient Data Lab Results Last 24 hrs: Laboratory Results - last 24 hr 10/15/19 10/15/19 10/15/19 Range/Units 05:20 05:20 11:53 WBC (4.0-11.0) K/uL RBC (4.50-5.90) M/uL Hgb (13.0-17.0) g/dL Hct (38.0-50.0) % MCV (80.0-98.0) fL MCH (27.0-32.0) pg MCHC (31.0-37.0) g/dL RDW Std Deviation (28.0-62.0) fl RDW Coeff of Rocco (11.0-15.0) % Plt Count (150-400) K/uL MPV (7.40-12.00) fL Neut % (Auto) (48.0-80.0) % Lymph % (Auto) (16.0-40.0) % [place] % (Auto) (0.0-15.0) % Eos % (Auto) (0.0-7.0) % Baso % (Auto) (0.0-1.5) % Neut # (Auto) (1.4-5.7) K/uL Lymph # (Auto) (0.6-2.4) K/uL [place] # (Auto) (0.0-0.8) K/uL Eos # (Auto) (0.0-0.7) K/uL Baso # (Auto) (0.0-0.1) K/uL Nucleated RBC % /100WBC Nucleated RBCs # K/uL Sodium (136-148) mmol/L Potassium (3.5-5.1) mmol/L Chloride (98-107) mmol/L Carbon Dioxide (21.0-32.0) mmol/L BUN (7.0-18.0) mg/dL Creatinine (0.8-1.3) mg/dL Est Cr Clr Drug Dosing mL/min Estimated GFR (MDRD) ml/min Glucose (74-106) mg/dL POC Glucose 281 H (60-110) mg/dL Hemoglobin A1c 9.4 H (4.5-6.2) % Calcium (8.5-10.1) mg/dL Total Bilirubin (0.2-1.0) mg/dL AST (15-37) IU/L ALT (14-63) IU/L Alkaline Phosphatase (46-116) U/L Troponin I (0.000-0.056) ng/mL Total Protein (6.4-8.2) g/dL Albumin (3.4-5.0) g/dL Globulin (2.6-4.0) g/dL Albumin/Globulin Ratio (0.9-1.6) Triglycerides 340 H (0-200) mg/dL Cholesterol 149 (50-200) mg/dL LDL Cholesterol, Calc 53 L (60-180) mg/dL VLDL Cholesterol 68 H (5-55) mg/dL HDL Cholesterol 28 L (40-60) mg/dL Cholesterol/HDL Ratio 5.3 (3.3-6.0) 10/15/19 10/15/19 10/15/19 Range/Units 13:26 14:15 16:50 WBC (4.0-11.0) K/uL RBC (4.50-5.90) M/uL Hgb (13.0-17.0) g/dL Hct (38.0-50.0) % MCV (80.0-98.0) fL MCH (27.0-32.0) pg MCHC (31.0-37.0) g/dL RDW Std Deviation (28.0-62.0) fl RDW Coeff of Rocco (11.0-15.0) % Plt Count (150-400) K/uL MPV (7.40-12.00) fL Neut % (Auto) (48.0-80.0) % Lymph % (Auto) (16.0-40.0) % [place] % (Auto) (0.0-15.0) % Eos % (Auto) (0.0-7.0) % Baso % (Auto) (0.0-1.5) % Neut # (Auto) (1.4-5.7) K/uL Lymph # (Auto) (0.6-2.4) K/uL [place] # (Auto) (0.0-0.8) K/uL Eos # (Auto) (0.0-0.7) K/uL Baso # (Auto) (0.0-0.1) K/uL Nucleated RBC % /100WBC Nucleated RBCs # K/uL Sodium (136-148) mmol/L Potassium (3.5-5.1) mmol/L Chloride (98-107) mmol/L Carbon Dioxide (21.0-32.0) mmol/L BUN (7.0-18.0) mg/dL Creatinine (0.8-1.3) mg/dL Est Cr Clr Drug Dosing mL/min Estimated GFR (MDRD) ml/min Glucose (74-106) mg/dL POC Glucose 307 H 326 H (60-110) mg/dL Hemoglobin A1c (4.5-6.2) % Calcium (8.5-10.1) mg/dL Total Bilirubin (0.2-1.0) mg/dL AST (15-37) IU/L ALT (14-63) IU/L Alkaline Phosphatase (46-116) U/L Troponin I < 0.050 (0.000-0.056) ng/mL Total Protein (6.4-8.2) g/dL Albumin (3.4-5.0) g/dL Globulin (2.6-4.0) g/dL Albumin/Globulin Ratio (0.9-1.6) Triglycerides (0-200) mg/dL Cholesterol (50-200) mg/dL LDL Cholesterol, Calc (60-180) mg/dL VLDL Cholesterol (5-55) mg/dL HDL Cholesterol (40-60) mg/dL Cholesterol/HDL Ratio (3.3-6.0) 10/15/19 10/15/19 10/15/19 Range/Units 17:19 18:27 20:00 WBC (4.0-11.0) K/uL RBC (4.50-5.90) M/uL Hgb (13.0-17.0) g/dL Hct (38.0-50.0) % MCV (80.0-98.0) fL MCH (27.0-32.0) pg MCHC (31.0-37.0) g/dL RDW Std Deviation (28.0-62.0) fl RDW Coeff of Rocco (11.0-15.0) % Plt Count (150-400) K/uL MPV (7.40-12.00) fL Neut % (Auto) (48.0-80.0) % Lymph % (Auto) (16.0-40.0) % [place] % (Auto) (0.0-15.0) % Eos % (Auto) (0.0-7.0) % Baso % (Auto) (0.0-1.5) % Neut # (Auto) (1.4-5.7) K/uL Lymph # (Auto) (0.6-2.4) K/uL [place] # (Auto) (0.0-0.8) K/uL Eos # (Auto) (0.0-0.7) K/uL Baso # (Auto) (0.0-0.1) K/uL Nucleated RBC % /100WBC Nucleated RBCs # K/uL Sodium (136-148) mmol/L Potassium (3.5-5.1) mmol/L Chloride (98-107) mmol/L Carbon Dioxide (21.0-32.0) mmol/L BUN (7.0-18.0) mg/dL Creatinine (0.8-1.3) mg/dL Est Cr Clr Drug Dosing mL/min Estimated GFR (MDRD) ml/min Glucose (74-106) mg/dL POC Glucose 326 H (60-110) mg/dL Hemoglobin A1c (4.5-6.2) % Calcium (8.5-10.1) mg/dL Total Bilirubin (0.2-1.0) mg/dL AST (15-37) IU/L ALT (14-63) IU/L Alkaline Phosphatase (46-116) U/L Troponin I < 0.050 < 0.050 (0.000-0.056) ng/mL Total Protein (6.4-8.2) g/dL Albumin (3.4-5.0) g/dL Globulin (2.6-4.0) g/dL Albumin/Globulin Ratio (0.9-1.6) Triglycerides (0-200) mg/dL Cholesterol (50-200) mg/dL LDL Cholesterol, Calc (60-180) mg/dL VLDL Cholesterol (5-55) mg/dL HDL Cholesterol (40-60) mg/dL Cholesterol/HDL Ratio (3.3-6.0) 10/15/19 10/16/19 10/16/19 Range/Units 20:53 05:45 05:45 WBC 10.86 (4.0-11.0) K/uL RBC 4.50 (4.50-5.90) M/uL Hgb 12.9 L (13.0-17.0) g/dL Hct 40.3 (38.0-50.0) % MCV 89.6 (80.0-98.0) fL MCH 28.7 (27.0-32.0) pg MCHC 32.0 (31.0-37.0) g/dL RDW Std Deviation 50.1 (28.0-62.0) fl RDW Coeff of Rocco 16 H (11.0-15.0) % Plt Count 274 (150-400) K/uL MPV 10.00 (7.40-12.00) fL Neut % (Auto) 82.4 H (48.0-80.0) % Lymph % (Auto) 12.4 L (16.0-40.0) % [place] % (Auto) 5.2 (0.0-15.0) % Eos % (Auto) 0.0 (0.0-7.0) % Baso % (Auto) 0.0 (0.0-1.5) % Neut # (Auto) 8.9 H (1.4-5.7) K/uL Lymph # (Auto) 1.4 (0.6-2.4) K/uL [place] # (Auto) 0.6 (0.0-0.8) K/uL Eos # (Auto) 0.0 (0.0-0.7) K/uL Baso # (Auto) 0.0 (0.0-0.1) K/uL Nucleated RBC % 0.0 /100WBC Nucleated RBCs # 0 K/uL Sodium 138 (136-148) mmol/L Potassium 4.9 (3.5-5.1) mmol/L Chloride 100 (98-107) mmol/L Carbon Dioxide 32.8 H (21.0-32.0) mmol/L BUN 24 H (7.0-18.0) mg/dL Creatinine 1.0 (0.8-1.3) mg/dL Est Cr Clr Drug Dosing 63.02 mL/min Estimated GFR (MDRD) > 60.0 ml/min Glucose 329 H (74-106) mg/dL POC Glucose 385 H (60-110) mg/dL Hemoglobin A1c (4.5-6.2) % Calcium 8.9 (8.5-10.1) mg/dL Total Bilirubin 0.2 (0.2-1.0) mg/dL AST 15 (15-37) IU/L ALT 28 (14-63) IU/L Alkaline Phosphatase 78 (46-116) U/L Troponin I (0.000-0.056) ng/mL Total Protein 6.3 L (6.4-8.2) g/dL Albumin 3.1 L (3.4-5.0) g/dL Globulin 3.2 (2.6-4.0) g/dL Albumin/Globulin Ratio 1.0 (0.9-1.6) Triglycerides (0-200) mg/dL Cholesterol (50-200) mg/dL LDL Cholesterol, Calc (60-180) mg/dL VLDL Cholesterol (5-55) mg/dL HDL Cholesterol (40-60) mg/dL Cholesterol/HDL Ratio (3.3-6.0) 10/16/19 Range/Units 06:19 WBC (4.0-11.0) K/uL RBC (4.50-5.90) M/uL Hgb (13.0-17.0) g/dL Hct (38.0-50.0) % MCV (80.0-98.0) fL MCH (27.0-32.0) pg MCHC (31.0-37.0) g/dL RDW Std Deviation (28.0-62.0) fl RDW Coeff of [place] (11.0-15.0) % Plt Count (150-400) K/uL MPV (7.40-12.00) fL Neut % (Auto) (48.0-80.0) % Lymph % (Auto) (16.0-40.0) % [place] % (Auto) (0.0-15.0) % Eos % (Auto) (0.0-7.0) % Baso % (Auto) (0.0-1.5) % Neut # (Auto) (1.4-5.7) K/uL Lymph # (Auto) (0.6-2.4) K/uL [place] # (Auto) (0.0-0.8) K/uL Eos # (Auto) (0.0-0.7) K/uL Baso # (Auto) (0.0-0.1) K/uL Nucleated RBC % /100WBC Nucleated RBCs # K/uL Sodium (136-148) mmol/L Potassium (3.5-5.1) mmol/L Chloride (98-107) mmol/L Carbon Dioxide (21.0-32.0) mmol/L BUN (7.0-18.0) mg/dL Creatinine (0.8-1.3) mg/dL Est Cr Clr Drug Dosing mL/min Estimated GFR (MDRD) ml/min Glucose (74-106) mg/dL POC Glucose 323 H (60-110) mg/dL Hemoglobin A1c (4.5-6.2) % Calcium (8.5-10.1) mg/dL Total Bilirubin (0.2-1.0) mg/dL AST (15-37) IU/L ALT (14-63) IU/L Alkaline Phosphatase (46-116) U/L Troponin I (0.000-0.056) ng/mL Total Protein (6.4-8.2) g/dL Albumin (3.4-5.0) g/dL Globulin (2.6-4.0) g/dL Albumin/Globulin Ratio (0.9-1.6) Triglycerides (0-200) mg/dL Cholesterol (50-200) mg/dL LDL Cholesterol, Calc (60-180) mg/dL VLDL Cholesterol (5-55) mg/dL HDL Cholesterol (40-60) mg/dL Cholesterol/HDL Ratio (3.3-6.0) Result Diagrams: 10/16/19 05:45 10/16/19 05:45 Jason Results Last 24 hrs: Microbiology 10/13/19 18:49 Aerobic Blood Culture - Preliminary Blood - Venous - Lab Draw NO GROWTH AFTER 2 DAYS Anaerobic Blood Culture - Preliminary NO GROWTH AFTER 2 DAYS 10/13/19 18:38 Aerobic Blood Culture - Preliminary Blood - Venous NO GROWTH AFTER 2 DAYS Anaerobic Blood Culture - Preliminary NO GROWTH AFTER 2 DAYS 10/13/19 23:00 Streptococcus pneumoniae Antigen (M - Final Urine 10/13/19 23:00 Legionella Urinary Antigen - Final Urine Orders Last 24hrs: Active Orders 24 hr Category Date Time Status Neurovascular Check [RC] Q2HR Care 10/15/19 18:10 Active Consult to Physical Therapy [PT Evaluation and Cons 10/16/19 08:30 Active Treatment] [CONS] Routine Ang Neck wo Cont [MR] Urgent Exams 10/15/19 14:41 Ordered Brain wo Cont [MR] Urgent Exams 10/15/19 14:41 Ordered Echo 2D wo Cont [US] Urgent Exams 10/15/19 14:39 Taken Albuterol/Ipratropium [DuoNeb 3.0-0.5 MG/3 ML] Med 10/15/19 22:00 Active 3 ml NEB Q8HRRT Insulin Aspart [NovoLOG] Med 10/15/19 18:13 Active 5 unit SUBCUT TIDAC Insulin Glarg,Human.Rec.Analog [LantUS Solostar] Med 10/16/19 21:00 Active 35 units SUBCUT BEDTIME Polyethylene Glycol 3350 [MiraLAX] Med 10/15/19 09:00 Active 17 gm PO DAILY Medication Orders Acetaminophen (Tylenol) 650 mg PO Q4H PRN PRN Reason: Pain (Mild 1-3)/fever Last Admin: 10/13/19 21:22 Dose: 650 mg Hydrocodone Bitart/Acetaminophen ([place] 325-10 Mg) 1 tab PO Q6H PRN PRN Reason: Pain Last Admin: 10/16/19 07:45 Dose: 1 tab Admin: 10/16/19 01:27 Dose: 1 tab Admin: 10/15/19 18:58 Dose: 1 tab Admin: 10/15/19 04:18 Dose: 1 tab Admin: 10/14/19 22:06 Dose: 1 tab Admin: 10/14/19 15:54 Dose: 1 tab Admin: 10/14/19 10:07 Dose: 1 tab Admin: 10/14/19 03:23 Dose: 1 tab Albuterol/Ipratropium (Duoneb 3.0-0.5 Mg/3 Ml) 3 ml NEB Q8HRRT [facility] Last Admin: 10/16/19 06:14 Dose: 3 ml Admin: 10/15/19 22:19 Dose: 3 ml Aspirin (Halfprin) 81 mg PO DAILY [facility] Last Admin: 10/16/19 09:16 Dose: 81 mg Admin: 10/15/19 09:57 Dose: 81 mg Admin: 10/14/19 09:37 Dose: 81 mg Benzonatate (Tessalon Perles) 200 mg PO BID [facility] Last Admin: 10/16/19 09:15 Dose: 200 mg Admin: 10/15/19 21:24 Dose: 200 mg Admin: 10/15/19 09:54 Dose: 200 mg Admin: 10/14/19 20:13 Dose: 200 mg Admin: 10/14/19 09:36 Dose: 200 mg Admin: 10/13/19 21:17 Dose: 200 mg Bisacodyl (Dulcolax) 10 mg PO DAILY PRN PRN Reason: Constipation Citalopram Hydrobromide (Celexa) 10 mg PO DAILY [facility] Last Admin: 10/16/19 09:17 Dose: 10 mg Admin: 10/15/19 09:55 Dose: 10 mg Admin: 10/14/19 12:47 Dose: 10 mg Clopidogrel Bisulfate (Plavix) 75 mg PO DAILY [facility] Last Admin: 10/16/19 09:16 Dose: 75 mg Admin: 10/15/19 09:55 Dose: 75 mg Admin: 10/14/19 09:36 Dose: 75 mg Gabapentin (Neurontin) 300 mg PO BID@ [facility] Last Admin: 10/15/19 17:44 Dose: 300 mg Admin: 10/15/19 13:56 Dose: 300 mg Admin: 10/14/19 17:54 Dose: 300 mg Gabapentin (Neurontin) 600 mg PO BID [facility] Last Admin: 10/16/19 09:16 Dose: 600 mg Admin: 10/15/19 21:24 Dose: 600 mg Admin: 10/15/19 09:57 Dose: 600 mg Admin: 10/14/19 20:14 Dose: 600 mg Guaifenesin/Codeine Phosphate (Robitussin Ac) 5 ml PO Q6H PRN PRN Reason: Cough Last Admin: 10/15/19 06:23 Dose: 5 ml Admin: 10/13/19 21:17 Dose: 5 ml Azithromycin 500 mg/ Sodium (Chloride) 250 mls @ 250 mls/hr IV DAILY [facility] [facility] Last Admin: 10/16/19 09:17 Dose: 250 mls/hr Infusion: 10/15/19 11:02 Dose: 250 mls/hr Admin: 10/15/19 10:02 Dose: 250 mls/hr Infusion: 10/14/19 10:38 Dose: 250 mls/hr Admin: 10/14/19 09:38 Dose: 250 mls/hr Infusion: 10/13/19 22:18 Dose: 250 mls/hr Admin: 10/13/19 21:18 Dose: 250 mls/hr Ceftriaxone Sodium/Dextrose 1 (gm/ Premix) 50 mls @ 100 mls/hr IV Q24H [facility] Last Admin: 10/15/19 18:59 Dose: 100 mls/hr Infusion: 10/14/19 19:05 Dose: 100 mls/hr Admin: 10/14/19 18:35 Dose: 100 mls/hr Infusion: 10/13/19 19:36 Dose: 100 mls/hr Admin: 10/13/19 19:06 Dose: 100 mls/hr Insulin Aspart (Novolog) 0 unit SUBCUT TIDAC [facility]; Protocol Last Admin: 10/16/19 07:45 Dose: 12 units Admin: 10/15/19 17:19 Dose: 12 units Admin: 10/15/19 12:24 Dose: 9 units Admin: 10/15/19 09:50 Dose: 9 units Admin: 10/14/19 17:55 Dose: 12 units Admin: 10/14/19 12:01 Dose: 12 units Admin: 10/14/19 09:29 Dose: 12 units Admin: 10/14/19 00:30 Dose: 20 units Insulin Aspart (Novolog) 5 unit SUBCUT [facility] Last Admin: 10/16/19 07:45 Dose: 5 units Admin: 10/15/19 18:29 Dose: 5 units Insulin Glargine (Lantus Solostar) 35 units SUBCUT BEDTIME [facility] Methylprednisolone Sodium Succinate (Solu-Medrol) 40 mg IVPUSH DAILY [facility] Last Admin: 10/16/19 09:17 Dose: 40 mg Admin: 10/15/19 09:58 Dose: 40 mg Admin: 10/14/19 09:38 Dose: 40 mg Metoprolol Tartrate (Lopressor) 50 mg PO BID [facility] Last Admin: 10/16/19 09:16 Dose: 50 mg Admin: 10/15/19 21:24 Dose: 50 mg Admin: 10/15/19 09:54 Dose: 50 mg Admin: 10/14/19 20:13 Dose: 50 mg Ondansetron HCl (Zofran Odt) 4 mg PO Q4H PRN PRN Reason: nausea, able to take PO Ondansetron HCl (Zofran) 4 mg IVPUSH Q4H PRN PRN Reason: Nausea Pantoprazole Sodium (Protonix) 40 mg PO DAILY [facility] Last Admin: 10/16/19 09:15 Dose: 40 mg Admin: 10/15/19 09:54 Dose: 40 mg Admin: 10/14/19 09:37 Dose: 40 mg Budesonide/Formoterol 160-4.5 Mcg/Puff 6 Gm Inhaler 0 each INH Q12H [facility] Last Admin: 10/15/19 23:38 Dose: Admin: 10/15/19 13:55 Dose: Not Given Admin: 10/15/19 00:15 Dose: Admin: 10/14/19 12:43 Dose: Not Given Polyethylene Glycol (Miralax) 17 gm PO DAILY [facility] Last Admin: 10/16/19 09:17 Dose: 17 gm Admin: 10/15/19 09:57 Dose: 17 gm Polyethylene Glycol (Miralax) 17 gm PO TID PRN PRN Reason: Constipation Rosuvastatin Calcium (Crestor) 40 mg PO BEDTIME [facility] Last Admin: 10/15/19 21:24 Dose: 40 mg Admin: 10/14/19 20:14 Dose: 40 mg Sodium Chloride (Saline Flush) 10 ml FLUSH ASDIRECTED PRN PRN Reason: Keep Vein Open Sodium Chloride (Saline Flush) 2.5 ml FLUSH ASDIRECTED PRN PRN Reason: Keep Vein Open Spironolactone (Aldactone) 50 mg PO DAILY [facility] Last Admin: 10/16/19 09:16 Dose: 50 mg Admin: 10/15/19 09:55 Dose: 50 mg Admin: 10/14/19 12:47 Dose: 50 mg Assessment/Plan Comment:: I performed a history and physical exam of the patient and discussed management with resident. I have reviewed the residents note and agree with documented findings and plan unless otherwise specified in my note.
[2019-10-13] MEDS: Benzonatate 100 MG Cap PO SCH (21:17)
[2019-10-13] MEDS: Codeine/guaiFENesin 100-10 MG/5 ML Syrup 5 ML Cup PO PRN (21:17)
[2019-10-13] MEDS: Azithromycin 500 MG in Sodium Chloride 0.9% 250 ML IV SCH (21:18)
[2019-10-13] MEDS ORDERED: Insulin Glargine,Human Rec. Analog 100 Units/ML 3 ML Pen SUBCUT SCH (23:00)
[2019-10-14] MEDS: Albuterol/Ipratropium 3.0-0.5 MG/3 ML Neb Soln NEB PRN ×2 (00:01→10:10)
[2019-10-14] MEDS: Insulin Aspart 100 Units/ML 3 ML Pen SUBCUT SCH ×4 (00:30→17:55)
[2019-10-14] MEDS: Acetaminophen/HYDROcodone 325-10 MG Tab PO PRN ×4 (03:23→22:06)
[2019-10-14 07:06] LABS: BLOOD UREA NITROGEN,BUN 25 mg/dL (7.0-18.0); CARBON DIOXIDE,CO2 34.9 mmol/L (21.0-32.0); CHLORIDE,CL 98 mmol/L (98-107); GLUCOSE RANDOM 341 mg/dL (74-106); POTASSIUM,K 4.6 mmol/L (3.5-5.1); SODIUM,NA 138 mmol/L (136-148)
[2019-10-14] MEDS ORDERED: Insulin Aspart 100 Units/ML 3 ML Pen SUBCUT SCH ×2 (07:30)
[2019-10-14] MEDS: Clopidogrel 75 MG Tab PO SCH (09:36)
[2019-10-14] MEDS: Benzonatate 100 MG Cap PO SCH ×2 (09:36→20:13)
[2019-10-14] MEDS: Pantoprazole 40 MG Tab.CR PO SCH (09:37)
[2019-10-14] MEDS: Aspirin 81 MG Tab.EC PO SCH (09:37)
[2019-10-14] MEDS: methylPREDNISolone Sodium Succinate 40 MG/1 ML SDV IVPUSH SCH (09:38)
[2019-10-14] MEDS: Azithromycin 500 MG in Sodium Chloride 0.9% 250 ML IV SCH (09:38)
[2019-10-14] MEDS ORDERED: Polyethylene Glycol 3350 Powder 17 GM Packet PO PRN (12:22)
[2019-10-14] MEDS ORDERED: Bisacodyl 5 MG Tab PO PRN (12:22)
[2019-10-14] MEDS: Budesonide/Formoterol 160-4.5 MCG/Puff 6 GM Inhaler INH SCH (12:43)
[2019-10-14] MEDS: Spironolactone 25 MG Tab PO SCH (12:47)
[2019-10-14] MEDS: Citalopram 20 MG Tab PO SCH (12:47)
[2019-10-14] MEDS: Gabapentin 300 MG Cap PO SCH ×2 (17:54→20:14)
[2019-10-14] MEDS: Enoxaparin 40 MG/0.4 ML Syringe SUBCUT SCH (17:56)
[2019-10-14] MEDS: cefTRIAXone 1 GM in Premix Bag 1 BAG IV SCH (18:35)
[2019-10-14] MEDS: Metoprolol Tartrate 50 MG Tab PO SCH (20:13)
[2019-10-14] MEDS: Rosuvastatin 10 MG Tab PO SCH (20:14)
--- NOTE | 2019-10-14 20:42 | PCM.PN ---
<Joel Jose - Last Filed: 10/14/19 20:38> - General Info Date of Service: 10/14/19 Subjective Update: No acute events overnight. Doing better this morning. On 3 L O2 baseline. White count is down. Still having productive cough. - Patient Data Vitals - Most Recent: Last Vital Signs Temp 36.2 C 10/14/19 19:30 Pulse 110 H 10/14/19 20:13 Resp 20 10/14/19 19:30 BP 169/77 H 10/14/19 20:13 Pulse Ox 93 L 10/14/19 19:30 Weight - Most Recent: 113.398 kg I&O - Last 24 Hours: Intake & Output 10/14/19 10/14/19 10/14/19 06:59 14:59 22:59 Intake Total 1670 470 Output Total 1000 375 Balance 670 95 Lab Results Last 24 Hours: Laboratory Results - last 24 hr 10/13/19 10/14/19 10/14/19 Range/Units 23:00 03:22 06:09 WBC 10.20 (4.0-11.0) K/uL RBC 4.49 L (4.50-5.90) M/uL Hgb 12.8 L (13.0-17.0) g/dL Hct 39.9 (38.0-50.0) % MCV 88.9 (80.0-98.0) fL MCH 28.5 (27.0-32.0) pg MCHC 32.1 (31.0-37.0) g/dL RDW Std Deviation 49.3 (28.0-62.0) fl RDW Coeff of Rocco 15 (11.0-15.0) % Plt Count 277 (150-400) K/uL MPV 10.10 (7.40-12.00) fL Neut % (Auto) 82.4 H (48.0-80.0) % Lymph % (Auto) 13.6 L (16.0-40.0) % Caroline % (Auto) 3.9 (0.0-15.0) % Eos % (Auto) 0.0 (0.0-7.0) % Baso % (Auto) 0.1 (0.0-1.5) % Neut # (Auto) 8.4 H (1.4-5.7) K/uL Lymph # (Auto) 1.4 (0.6-2.4) K/uL Caroline # (Auto) 0.4 (0.0-0.8) K/uL Eos # (Auto) 0.0 (0.0-0.7) K/uL Baso # (Auto) 0.0 (0.0-0.1) K/uL Nucleated RBC % 0.0 /100WBC Nucleated RBCs # 0 K/uL Sodium (136-148) mmol/L Potassium (3.5-5.1) mmol/L Chloride (98-107) mmol/L Carbon Dioxide (21.0-32.0) mmol/L BUN (7.0-18.0) mg/dL Creatinine (0.8-1.3) mg/dL Est Cr Clr Drug Dosing mL/min Estimated GFR (MDRD) ml/min Glucose (74-106) mg/dL POC Glucose 365 H (60-110) mg/dL Calcium (8.5-10.1) mg/dL Total Bilirubin (0.2-1.0) mg/dL AST (15-37) IU/L ALT (14-63) IU/L Alkaline Phosphatase (46-116) U/L Total Protein (6.4-8.2) g/dL Albumin (3.4-5.0) g/dL Globulin (2.6-4.0) g/dL Albumin/Globulin Ratio (0.9-1.6) Urine Color YELLOW Urine Appearance CLEAR Urine pH 5.5 (5.0-8.0) Ur Specific New Site <= 1.005 (1.001-1.035) Urine Protein NEGATIVE (NEGATIVE) mg/dL Urine Glucose (UA) NEGATIVE (NEGATIVE) mg/dL Urine Ketones NEGATIVE (NEGATIVE) mg/dL Urine Occult Blood NEGATIVE (NEGATIVE) Urine Nitrite NEGATIVE (NEGATIVE) Urine Bilirubin NEGATIVE (NEGATIVE) Urine Urobilinogen 0.2 (<2.0) EU/dL Ur Leukocyte Esterase NEGATIVE (NEGATIVE) 10/14/19 10/14/19 10/14/19 Range/Units 06:09 06:37 11:52 WBC (4.0-11.0) K/uL RBC (4.50-5.90) M/uL Hgb (13.0-17.0) g/dL Hct (38.0-50.0) % MCV (80.0-98.0) fL MCH (27.0-32.0) pg MCHC (31.0-37.0) g/dL RDW Std Deviation (28.0-62.0) fl RDW Coeff of Rocco (11.0-15.0) % Plt Count (150-400) K/uL MPV (7.40-12.00) fL Neut % (Auto) (48.0-80.0) % Lymph % (Auto) (16.0-40.0) % Caroline % (Auto) (0.0-15.0) % Eos % (Auto) (0.0-7.0) % Baso % (Auto) (0.0-1.5) % Neut # (Auto) (1.4-5.7) K/uL Lymph # (Auto) (0.6-2.4) K/uL Caroline # (Auto) (0.0-0.8) K/uL Eos # (Auto) (0.0-0.7) K/uL Baso # (Auto) (0.0-0.1) K/uL Nucleated RBC % /100WBC Nucleated RBCs # K/uL Sodium 138 (136-148) mmol/L Potassium 4.6 (3.5-5.1) mmol/L Chloride 98 (98-107) mmol/L Carbon Dioxide 34.9 H (21.0-32.0) mmol/L BUN 25 H (7.0-18.0) mg/dL Creatinine 1.1 (0.8-1.3) mg/dL Est Cr Clr Drug Dosing 57.29 mL/min Estimated GFR (MDRD) > 60.0 ml/min Glucose 341 H (74-106) mg/dL POC Glucose 300 H 338 H (60-110) mg/dL Calcium 9.0 (8.5-10.1) mg/dL Total Bilirubin 0.2 (0.2-1.0) mg/dL AST 10 L (15-37) IU/L ALT 18 (14-63) IU/L Alkaline Phosphatase 84 (46-116) U/L Total Protein 6.9 (6.4-8.2) g/dL Albumin 2.8 L (3.4-5.0) g/dL Globulin 4.1 H (2.6-4.0) g/dL Albumin/Globulin Ratio 0.7 L (0.9-1.6) Urine Color Urine Appearance Urine pH (5.0-8.0) Ur Specific New Site (1.001-1.035) Urine Protein (NEGATIVE) mg/dL Urine Glucose (UA) (NEGATIVE) mg/dL Urine Ketones (NEGATIVE) mg/dL Urine Occult Blood (NEGATIVE) Urine Nitrite (NEGATIVE) Urine Bilirubin (NEGATIVE) Urine Urobilinogen (<2.0) EU/dL Ur Leukocyte Esterase (NEGATIVE) 10/14/19 Range/Units 17:34 WBC (4.0-11.0) K/uL RBC (4.50-5.90) M/uL Hgb (13.0-17.0) g/dL Hct (38.0-50.0) % MCV (80.0-98.0) fL MCH (27.0-32.0) pg MCHC (31.0-37.0) g/dL RDW Std Deviation (28.0-62.0) fl RDW Coeff of Rocco (11.0-15.0) % Plt Count (150-400) K/uL MPV (7.40-12.00) fL Neut % (Auto) (48.0-80.0) % Lymph % (Auto) (16.0-40.0) % Caroline % (Auto) (0.0-15.0) % Eos % (Auto) (0.0-7.0) % Baso % (Auto) (0.0-1.5) % Neut # (Auto) (1.4-5.7) K/uL Lymph # (Auto) (0.6-2.4) K/uL Caroline # (Auto) (0.0-0.8) K/uL Eos # (Auto) (0.0-0.7) K/uL Baso # (Auto) (0.0-0.1) K/uL Nucleated RBC % /100WBC Nucleated RBCs # K/uL Sodium (136-148) mmol/L Potassium (3.5-5.1) mmol/L Chloride (98-107) mmol/L Carbon Dioxide (21.0-32.0) mmol/L BUN (7.0-18.0) mg/dL Creatinine (0.8-1.3) mg/dL Est Cr Clr Drug Dosing mL/min Estimated GFR (MDRD) ml/min Glucose (74-106) mg/dL POC Glucose 308 H (60-110) mg/dL Calcium (8.5-10.1) mg/dL Total Bilirubin (0.2-1.0) mg/dL AST (15-37) IU/L ALT (14-63) IU/L Alkaline Phosphatase (46-116) U/L Total Protein (6.4-8.2) g/dL Albumin (3.4-5.0) g/dL Globulin (2.6-4.0) g/dL Albumin/Globulin Ratio (0.9-1.6) Urine Color Urine Appearance Urine pH (5.0-8.0) Ur Specific New Site (1.001-1.035) Urine Protein (NEGATIVE) mg/dL Urine Glucose (UA) (NEGATIVE) mg/dL Urine Ketones (NEGATIVE) mg/dL Urine Occult Blood (NEGATIVE) Urine Nitrite (NEGATIVE) Urine Bilirubin (NEGATIVE) Urine Urobilinogen (<2.0) EU/dL Ur Leukocyte Esterase (NEGATIVE) Jason Results Last 24 Hours: Microbiology 10/13/19 18:49 Aerobic Blood Culture - Preliminary Blood - Venous - Lab Draw NO GROWTH AFTER 1 DAY Anaerobic Blood Culture - Preliminary NO GROWTH AFTER 1 DAY 10/13/19 18:38 Aerobic Blood Culture - Preliminary Blood - Venous NO GROWTH AFTER 1 DAY Anaerobic Blood Culture - Preliminary NO GROWTH AFTER 1 DAY 10/14/19 18:00 Influenza Type A Antigen Screen - Final Nasopharyngeal Swab NEGATIVE INFLUENZA A VIRUS AG REFERENCE RANGE: NEGATIVE Influenza Type B Antigen Screen - Final NEGATIVE INFLUENZA B VIRUS AG REFERENCE RANGE: NEGATIVE 10/13/19 23:00 Gram Stain - Final Sputum - Expectorated Med Orders - Current: Current Medications Acetaminophen (Tylenol) 650 mg PO Q4H PRN PRN Reason: Pain (Mild 1-3)/fever Last Admin: 10/13/19 21:22 Dose: 650 mg Hydrocodone Bitart/Acetaminophen ([place] 325-10 Mg) 1 tab PO Q6H PRN PRN Reason: Pain Last Admin: 10/14/19 15:54 Dose: 1 tab Albuterol/Ipratropium (Duoneb 3.0-0.5 Mg/3 Ml) 3 ml NEB Q4HRRT PRN PRN Reason: Shortness Of Breath/wheezing Last Admin: 10/14/19 10:10 Dose: 3 ml Aspirin (Halfprin) 81 mg PO DAILY [facility] Last Admin: 10/14/19 09:37 Dose: 81 mg Benzonatate (Tessalon Perles) 200 mg PO BID [facility] Last Admin: 10/14/19 20:13 Dose: 200 mg Bisacodyl (Dulcolax) 10 mg PO DAILY PRN PRN Reason: Constipation Citalopram Hydrobromide (Celexa) 10 mg PO DAILY [facility] Last Admin: 10/14/19 12:47 Dose: 10 mg Clopidogrel Bisulfate (Plavix) 75 mg PO DAILY [facility] Last Admin: 10/14/19 09:36 Dose: 75 mg Enoxaparin Sodium (Lovenox) 40 mg SUBCUT Q24H [facility] Last Admin: 10/14/19 17:56 Dose: 40 mg Gabapentin (Neurontin) 300 mg PO BID@12,18 [facility] Last Admin: 10/14/19 17:54 Dose: 300 mg Gabapentin (Neurontin) 600 mg PO BID [facility] Last Admin: 10/14/19 20:14 Dose: 600 mg Guaifenesin/Codeine Phosphate (Robitussin Ac) 5 ml PO Q6H PRN PRN Reason: Cough Last Admin: 10/13/19 21:17 Dose: 5 ml Azithromycin 500 mg/ Sodium (Chloride) 250 mls @ 250 mls/hr IV DAILY [facility] Last Admin: 10/14/19 09:38 Dose: 250 mls/hr Ceftriaxone Sodium/Dextrose 1 (gm/ Premix) 50 mls @ 100 mls/hr IV Q24H [facility] Last Admin: 10/14/19 18:35 Dose: 100 mls/hr Insulin Aspart (Novolog) 0 unit SUBCUT TIDAC [facility]; Protocol Last Admin: 10/14/19 17:55 Dose: 12 units Insulin Glargine (Lantus Solostar) 30 units SUBCUT BEDTIME [facility] Methylprednisolone Sodium Succinate (Solu-Medrol) 40 mg IVPUSH DAILY [facility] Last Admin: 10/14/19 09:38 Dose: 40 mg Metoprolol Tartrate (Lopressor) 50 mg PO BID [facility] Last Admin: 10/14/19 20:13 Dose: 50 mg Ondansetron HCl (Zofran Odt) 4 mg PO Q4H PRN PRN Reason: nausea, able to take PO Ondansetron HCl (Zofran) 4 mg IVPUSH Q4H PRN PRN Reason: Nausea Pantoprazole Sodium (Protonix) 40 mg PO DAILY [facility] Last Admin: 10/14/19 09:37 Dose: 40 mg Budesonide/Formoterol 160-4.5 Mcg/Puff 6 Gm Inhaler 0 each INH Q12H [facility] Last Admin: 10/14/19 12:43 Dose: Not Given Polyethylene Glycol (Miralax) 17 gm PO DAILY [facility] Polyethylene Glycol (Miralax) 17 gm PO TID PRN PRN Reason: Constipation Rosuvastatin Calcium (Crestor) 40 mg PO BEDTIME [facility] Last Admin: 10/14/19 20:14 Dose: 40 mg Sodium Chloride (Saline Flush) 10 ml FLUSH ASDIRECTED PRN PRN Reason: Keep Vein Open Sodium Chloride (Saline Flush) 2.5 ml FLUSH ASDIRECTED PRN PRN Reason: Keep Vein Open Spironolactone (Aldactone) 50 mg PO DAILY [facility] Last Admin: 10/14/19 12:47 Dose: 50 mg Discontinued Medications Albuterol/Ipratropium (Duoneb 3.0-0.5 Mg/3 Ml) 3 ml NEB ONETIME ONE Stop: 10/13/19 16:20 Last Admin: 10/13/19 16:26 Dose: 3 ml Furosemide (Lasix) 40 mg IVPUSH NOW ONE Stop: 10/13/19 18:15 Last Admin: 10/13/19 18:28 Dose: 40 mg Piperacillin Sod/Tazobactam (Sod 4.5 gm/ Sodium Chloride) 100 mls @ 100 mls/hr IV ONETIME ONE Stop: 10/13/19 19:13 Last Admin: 10/13/19 18:59 Dose: Not Given Sodium Chloride (Normal Saline) 1,000 mls @ 150 mls/hr IV STAT ONE Stop: 10/14/19 01:37 Last Admin: 10/13/19 19:06 Dose: 150 mls/hr Influenza Virus Vaccine (Pharmacy To Dose - Influenza Vaccine) 1 each IM ONETIME ONE Stop: 10/15/19 10:01 Influenza Virus Vaccine (Fluzone High-Dose 2019- Syringe) 180 mcg IM .ONCE ONE Stop: 10/13/19 22:01 Insulin Aspart (Novolog) 0 unit SUBCUT TIDAC MAGEN; Protocol Insulin Aspart (Novolog) 0 unit SUBCUT TIDAC MAGEN; Protocol Insulin Glargine (Lantus Solostar) 28 units SUBCUT BEDTIME MAGEN Last Admin: 10/13/19 23:04 Dose: 28 units Methylprednisolone Sodium Succinate (Solu-Medrol) 125 mg IVPUSH ONETIME ONE Stop: 10/13/19 16:20 Last Admin: 10/13/19 16:26 Dose: 125 mg Morphine Sulfate (Morphine) 2 mg IVPUSH Q2H PRN PRN Reason: Pain (severe 7-10) Stop: 10/14/19 18:44 Last Admin: 10/13/19 23:37 Dose: 2 mg - Exam Quality Assessment: Supplemental Oxygen General: Alert, Oriented, Cooperative, No Acute Distress Lungs: Other (bibasilar crackles with mild wheezing) Cardiovascular: Regular Rate, Regular Rhythm GI/Abdominal Exam: Normal Bowel Sounds, Soft, Non-Tender Extremities: Normal Inspection, No Pedal Edema Skin: Warm, Dry - Problem List Review Problem List Initiated/Reviewed/Updated: Yes - My Orders Last 24 Hours: My Active Orders 10/13/19 19:58 Codeine/guaiFENesin [Robitussin AC] 5 ml PO Q6H PRN 10/13/19 21:00 Benzonatate [Tessalon Perles] 200 mg PO BID 10/13/19 23:00 CULTURE SPUTUM + SMEAR [RM] Routine LEGIONELLA ANTIGEN [MREF] Routine STREP PNEUMONIAE ANTIGEN [MREF] Routine 10/14/19 08:00 Echo Comp wo Cont [US] Routine 10/14/19 09:00 Aspirin [Halfprin] 81 mg PO DAILY Clopidogrel [Plavix] 75 mg PO DAILY Pantoprazole [ProTONIX] 40 mg PO DAILY methylPREDNISolone Sod Succ [Solu-MEDROL] 40 mg IVPUSH DAILY 10/14/19 12:22 Bisacodyl [Dulcolax] 10 mg PO DAILY PRN Polyethylene Glycol 3350 [MiraLAX] 17 gm PO TID PRN 10/14/19 12:30 Citalopram [Celexa] 10 mg PO DAILY Patient's Own Medication [Ptom] 0 each INH Q12H Spironolactone [Aldactone] 50 mg PO DAILY 10/14/19 18:00 Gabapentin [Neurontin] 300 mg PO BID@10/14/19 21:00 Gabapentin [Neurontin] 600 mg PO BID Insulin Glarg,Human.Rec.Analog [LantUS Solostar] 30 units SUBCUT BEDTIME Metoprolol Tartrate [Lopressor] 50 mg PO BID Rosuvastatin [Crestor] 40 mg PO BEDTIME 10/15/19 05:11 CBC WITH AUTO DIFF [HEME] AM COMPREHENSIVE METABOLIC PN,CMP [CHEM] AM 10/15/19 09:00 Polyethylene Glycol 3350 [MiraLAX] 17 gm PO DAILY 10/16/19 05:11 CBC WITH AUTO DIFF [HEME] AM COMPREHENSIVE METABOLIC PN,CMP [CHEM] AM - Plan Plan:: A: 1. Community acquired pneumonia 2. COPD exacerbation 3. Hypertension 4. Diabetes type 2 5. HX CAD s/p stent placements P: Will continue with ceftriaxone and azithromycin since patient is improving. Will continue with daily methylprednisolone 40 mg IV due to COPD exacerbation. In addition to Duonebs PRN. Increased Lantus to 30 units at [facility] due to hyperglycemia. Dispo: likel dc tomorrow. <Carmen Tineo - Last Filed: 10/16/19 09:39> - Patient Data Vitals - Most Recent: Last Vital Signs Temp 35.7 C 10/16/19 07:53 Pulse 97 10/16/19 09:16 Resp 17 10/16/19 07:53 BP 160/73 H 10/16/19 09:16 Pulse Ox 94 L 10/16/19 07:53 I&O - Last 24 Hours: Intake & Output 10/15/19 10/16/19 10/16/19 22:59 06:59 14:59 Intake Total 530 700 Output Total 1450 Balance 530 -750 Lab Results Last 24 Hours: Laboratory Results - last 24 hr 10/15/19 10/15/19 10/15/19 Range/Units 05:20 05:20 11:53 WBC (4.0-11.0) K/uL RBC (4.50-5.90) M/uL Hgb (13.0-17.0) g/dL Hct (38.0-50.0) % MCV (80.0-98.0) fL MCH (27.0-32.0) pg MCHC (31.0-37.0) g/dL RDW Std Deviation (28.0-62.0) fl RDW Coeff of Rocco (11.0-15.0) % Plt Count (150-400) K/uL MPV (7.40-12.00) fL Neut % (Auto) (48.0-80.0) % Lymph % (Auto) (16.0-40.0) % Caroline % (Auto) (0.0-15.0) % Eos % (Auto) (0.0-7.0) % Baso % (Auto) (0.0-1.5) % Neut # (Auto) (1.4-5.7) K/uL Lymph # (Auto) (0.6-2.4) K/uL Caroline # (Auto) (0.0-0.8) K/uL Eos # (Auto) (0.0-0.7) K/uL Baso # (Auto) (0.0-0.1) K/uL Nucleated RBC % /100WBC Nucleated RBCs # K/uL Sodium (136-148) mmol/L Potassium (3.5-5.1) mmol/L Chloride (98-107) mmol/L Carbon Dioxide (21.0-32.0) mmol/L BUN (7.0-18.0) mg/dL Creatinine (0.8-1.3) mg/dL Est Cr Clr Drug Dosing mL/min Estimated GFR (MDRD) ml/min Glucose (74-106) mg/dL POC Glucose 281 H (60-110) mg/dL Hemoglobin A1c 9.4 H (4.5-6.2) % Calcium (8.5-10.1) mg/dL Total Bilirubin (0.2-1.0) mg/dL AST (15-37) IU/L ALT (14-63) IU/L Alkaline Phosphatase (46-116) U/L Troponin I (0.000-0.056) ng/mL Total Protein (6.4-8.2) g/dL Albumin (3.4-5.0) g/dL Globulin (2.6-4.0) g/dL Albumin/Globulin Ratio (0.9-1.6) Triglycerides 340 H (0-200) mg/dL Cholesterol 149 (50-200) mg/dL LDL Cholesterol, Calc 53 L (60-180) mg/dL VLDL Cholesterol 68 H (5-55) mg/dL HDL Cholesterol 28 L (40-60) mg/dL Cholesterol/HDL Ratio 5.3 (3.3-6.0) 10/15/19 10/15/19 10/15/19 Range/Units 13:26 14:15 16:50 WBC (4.0-11.0) K/uL RBC (4.50-5.90) M/uL Hgb (13.0-17.0) g/dL Hct (38.0-50.0) % MCV (80.0-98.0) fL MCH (27.0-32.0) pg MCHC (31.0-37.0) g/dL RDW Std Deviation (28.0-62.0) fl RDW Coeff of Rocco (11.0-15.0) % Plt Count (150-400) K/uL MPV (7.40-12.00) fL Neut % (Auto) (48.0-80.0) % Lymph % (Auto) (16.0-40.0) % Caroline % (Auto) (0.0-15.0) % Eos % (Auto) (0.0-7.0) % Baso % (Auto) (0.0-1.5) % Neut # (Auto) (1.4-5.7) K/uL Lymph # (Auto) (0.6-2.4) K/uL Caroline # (Auto) (0.0-0.8) K/uL Eos # (Auto) (0.0-0.7) K/uL Baso # (Auto) (0.0-0.1) K/uL Nucleated RBC % /100WBC Nucleated RBCs # K/uL Sodium (136-148) mmol/L Potassium (3.5-5.1) mmol/L Chloride (98-107) mmol/L Carbon Dioxide (21.0-32.0) mmol/L BUN (7.0-18.0) mg/dL Creatinine (0.8-1.3) mg/dL Est Cr Clr Drug Dosing mL/min Estimated GFR (MDRD) ml/min Glucose (74-106) mg/dL POC Glucose 307 H 326 H (60-110) mg/dL Hemoglobin A1c (4.5-6.2) % Calcium (8.5-10.1) mg/dL Total Bilirubin (0.2-1.0) mg/dL AST (15-37) IU/L ALT (14-63) IU/L Alkaline Phosphatase (46-116) U/L Troponin I < 0.050 (0.000-0.056) ng/mL Total Protein (6.4-8.2) g/dL Albumin (3.4-5.0) g/dL Globulin (2.6-4.0) g/dL Albumin/Globulin Ratio (0.9-1.6) Triglycerides (0-200) mg/dL Cholesterol (50-200) mg/dL LDL Cholesterol, Calc (60-180) mg/dL VLDL Cholesterol (5-55) mg/dL HDL Cholesterol (40-60) mg/dL Cholesterol/HDL Ratio (3.3-6.0) 10/15/19 10/15/19 10/15/19 Range/Units 17:19 18:27 20:00 WBC (4.0-11.0) K/uL RBC (4.50-5.90) M/uL Hgb (13.0-17.0) g/dL Hct (38.0-50.0) % MCV (80.0-98.0) fL MCH (27.0-32.0) pg MCHC (31.0-37.0) g/dL RDW Std Deviation (28.0-62.0) fl RDW Coeff of Rocco (11.0-15.0) % Plt Count (150-400) K/uL MPV (7.40-12.00) fL Neut % (Auto) (48.0-80.0) % Lymph % (Auto) (16.0-40.0) % Caroline % (Auto) (0.0-15.0) % Eos % (Auto) (0.0-7.0) % Baso % (Auto) (0.0-1.5) % Neut # (Auto) (1.4-5.7) K/uL Lymph # (Auto) (0.6-2.4) K/uL Caroline # (Auto) (0.0-0.8) K/uL Eos # (Auto) (0.0-0.7) K/uL Baso # (Auto) (0.0-0.1) K/uL Nucleated RBC % /100WBC Nucleated RBCs # K/uL Sodium (136-148) mmol/L Potassium (3.5-5.1) mmol/L Chloride (98-107) mmol/L Carbon Dioxide (21.0-32.0) mmol/L BUN (7.0-18.0) mg/dL Creatinine (0.8-1.3) mg/dL Est Cr Clr Drug Dosing mL/min Estimated GFR (MDRD) ml/min Glucose (74-106) mg/dL POC Glucose 326 H (60-110) mg/dL Hemoglobin A1c (4.5-6.2) % Calcium (8.5-10.1) mg/dL Total Bilirubin (0.2-1.0) mg/dL AST (15-37) IU/L ALT (14-63) IU/L Alkaline Phosphatase (46-116) U/L Troponin I < 0.050 < 0.050 (0.000-0.056) ng/mL Total Protein (6.4-8.2) g/dL Albumin (3.4-5.0) g/dL Globulin (2.6-4.0) g/dL Albumin/Globulin Ratio (0.9-1.6) Triglycerides (0-200) mg/dL Cholesterol (50-200) mg/dL LDL Cholesterol, Calc (60-180) mg/dL VLDL Cholesterol (5-55) mg/dL HDL Cholesterol (40-60) mg/dL Cholesterol/HDL Ratio (3.3-6.0) 10/15/19 10/16/19 10/16/19 Range/Units 20:53 05:45 05:45 WBC 10.86 (4.0-11.0) K/uL RBC 4.50 (4.50-5.90) M/uL Hgb 12.9 L (13.0-17.0) g/dL Hct 40.3 (38.0-50.0) % MCV 89.6 (80.0-98.0) fL MCH 28.7 (27.0-32.0) pg MCHC 32.0 (31.0-37.0) g/dL RDW Std Deviation 50.1 (28.0-62.0) fl RDW Coeff of Rocco 16 H (11.0-15.0) % Plt Count 274 (150-400) K/uL MPV 10.00 (7.40-12.00) fL Neut % (Auto) 82.4 H (48.0-80.0) % Lymph % (Auto) 12.4 L (16.0-40.0) % Caroline % (Auto) 5.2 (0.0-15.0) % Eos % (Auto) 0.0 (0.0-7.0) % Baso % (Auto) 0.0 (0.0-1.5) % Neut # (Auto) 8.9 H (1.4-5.7) K/uL Lymph # (Auto) 1.4 (0.6-2.4) K/uL Caroline # (Auto) 0.6 (0.0-0.8) K/uL Eos # (Auto) 0.0 (0.0-0.7) K/uL Baso # (Auto) 0.0 (0.0-0.1) K/uL Nucleated RBC % 0.0 /100WBC Nucleated RBCs # 0 K/uL Sodium 138 (136-148) mmol/L Potassium 4.9 (3.5-5.1) mmol/L Chloride 100 (98-107) mmol/L Carbon Dioxide 32.8 H (21.0-32.0) mmol/L BUN 24 H (7.0-18.0) mg/dL Creatinine 1.0 (0.8-1.3) mg/dL Est Cr Clr Drug Dosing 63.02 mL/min Estimated GFR (MDRD) > 60.0 ml/min Glucose 329 H (74-106) mg/dL POC Glucose 385 H (60-110) mg/dL Hemoglobin A1c (4.5-6.2) % Calcium 8.9 (8.5-10.1) mg/dL Total Bilirubin 0.2 (0.2-1.0) mg/dL AST 15 (15-37) IU/L ALT 28 (14-63) IU/L Alkaline Phosphatase 78 (46-116) U/L Troponin I (0.000-0.056) ng/mL Total Protein 6.3 L (6.4-8.2) g/dL Albumin 3.1 L (3.4-5.0) g/dL Globulin 3.2 (2.6-4.0) g/dL Albumin/Globulin Ratio 1.0 (0.9-1.6) Triglycerides (0-200) mg/dL Cholesterol (50-200) mg/dL LDL Cholesterol, Calc (60-180) mg/dL VLDL Cholesterol (5-55) mg/dL HDL Cholesterol (40-60) mg/dL Cholesterol/HDL Ratio (3.3-6.0) 10/16/19 Range/Units 06:19 WBC (4.0-11.0) K/uL RBC (4.50-5.90) M/uL Hgb (13.0-17.0) g/dL Hct (38.0-50.0) % MCV (80.0-98.0) fL MCH (27.0-32.0) pg MCHC (31.0-37.0) g/dL RDW Std Deviation (28.0-62.0) fl RDW Coeff of Rocco (11.0-15.0) % Plt Count (150-400) K/uL MPV (7.40-12.00) fL Neut % (Auto) (48.0-80.0) % Lymph % (Auto) (16.0-40.0) % Caroline % (Auto) (0.0-15.0) % Eos % (Auto) (0.0-7.0) % Baso % (Auto) (0.0-1.5) % Neut # (Auto) (1.4-5.7) K/uL Lymph # (Auto) (0.6-2.4) K/uL Caroline # (Auto) (0.0-0.8) K/uL Eos # (Auto) (0.0-0.7) K/uL Baso # (Auto) (0.0-0.1) K/uL Nucleated RBC % /100WBC Nucleated RBCs # K/uL Sodium (136-148) mmol/L Potassium (3.5-5.1) mmol/L Chloride (98-107) mmol/L Carbon Dioxide (21.0-32.0) mmol/L BUN (7.0-18.0) mg/dL Creatinine (0.8-1.3) mg/dL Est Cr Clr Drug Dosing mL/min Estimated GFR (MDRD) ml/min Glucose (74-106) mg/dL POC Glucose 323 H (60-110) mg/dL Hemoglobin A1c (4.5-6.2) % Calcium (8.5-10.1) mg/dL Total Bilirubin (0.2-1.0) mg/dL AST (15-37) IU/L ALT (14-63) IU/L Alkaline Phosphatase (46-116) U/L Troponin I (0.000-0.056) ng/mL Total Protein (6.4-8.2) g/dL Albumin (3.4-5.0) g/dL Globulin (2.6-4.0) g/dL Albumin/Globulin Ratio (0.9-1.6) Triglycerides (0-200) mg/dL Cholesterol (50-200) mg/dL LDL Cholesterol, Calc (60-180) mg/dL VLDL Cholesterol (5-55) mg/dL HDL Cholesterol (40-60) mg/dL Cholesterol/HDL Ratio (3.3-6.0) Jason Results Last 24 Hours: Microbiology 10/13/19 18:49 Aerobic Blood Culture - Preliminary Blood - Venous - Lab Draw NO GROWTH AFTER 2 DAYS Anaerobic Blood Culture - Preliminary NO GROWTH AFTER 2 DAYS 10/13/19 18:38 Aerobic Blood Culture - Preliminary Blood - Venous NO GROWTH AFTER 2 DAYS Anaerobic Blood Culture - Preliminary NO GROWTH AFTER 2 DAYS 10/13/19 23:00 Streptococcus pneumoniae Antigen (M - Final Urine 10/13/19 23:00 Legionella Urinary Antigen - Final Urine Med Orders - Current: Current Medications Acetaminophen (Tylenol) 650 mg PO Q4H PRN PRN Reason: Pain (Mild 1-3)/fever Last Admin: 10/13/19 21:22 Dose: 650 mg Hydrocodone Bitart/Acetaminophen ([place] 325-10 Mg) 1 tab PO Q6H PRN PRN Reason: Pain Last Admin: 10/16/19 07:45 Dose: 1 tab Albuterol/Ipratropium (Duoneb 3.0-0.5 Mg/3 Ml) 3 ml NEB Q8HRRT [facility] Last Admin: 10/16/19 06:14 Dose: 3 ml Aspirin (Halfprin) 81 mg PO DAILY [facility] Last Admin: 10/16/19 09:16 Dose: 81 mg Benzonatate (Tessalon Perles) 200 mg PO BID [facility] Last Admin: 10/16/19 09:15 Dose: 200 mg Bisacodyl (Dulcolax) 10 mg PO DAILY PRN PRN Reason: Constipation Citalopram Hydrobromide (Celexa) 10 mg PO DAILY [facility] Last Admin: 10/16/19 09:17 Dose: 10 mg Clopidogrel Bisulfate (Plavix) 75 mg PO DAILY [facility] Last Admin: 10/16/19 09:16 Dose: 75 mg Gabapentin (Neurontin) 300 mg PO BID@12,18 [facility] Last Admin: 10/15/19 17:44 Dose: 300 mg Gabapentin (Neurontin) 600 mg PO BID [facility] Last Admin: 10/16/19 09:16 Dose: 600 mg Guaifenesin/Codeine Phosphate (Robitussin Ac) 5 ml PO Q6H PRN PRN Reason: Cough Last Admin: 10/15/19 06:23 Dose: 5 ml Azithromycin 500 mg/ Sodium (Chloride) 250 mls @ 250 mls/hr IV DAILY [facility] Last Admin: 10/16/19 09:17 Dose: 250 mls/hr Ceftriaxone Sodium/Dextrose 1 (gm/ Premix) 50 mls @ 100 mls/hr IV Q24H [facility] Last Admin: 10/15/19 18:59 Dose: 100 mls/hr Insulin Aspart (Novolog) 0 unit SUBCUT TIDAC [facility]; Protocol Last Admin: 10/16/19 07:45 Dose: 12 units Insulin Aspart (Novolog) 5 unit SUBCUT TIDAC [facility] Last Admin: 10/16/19 07:45 Dose: 5 units Insulin Glargine (Lantus Solostar) 35 units SUBCUT BEDTIME [facility] Methylprednisolone Sodium Succinate (Solu-Medrol) 40 mg IVPUSH DAILY [facility] Last Admin: 10/16/19 09:17 Dose: 40 mg Metoprolol Tartrate (Lopressor) 50 mg PO BID [facility] Last Admin: 10/16/19 09:16 Dose: 50 mg Ondansetron HCl (Zofran Odt) 4 mg PO Q4H PRN PRN Reason: nausea, able to take PO Ondansetron HCl (Zofran) 4 mg IVPUSH Q4H PRN PRN Reason: Nausea Pantoprazole Sodium (Protonix) 40 mg PO DAILY [facility] [facility] Last Admin: 10/16/19 09:15 Dose: 40 mg Budesonide/Formoterol 160-4.5 Mcg/Puff 6 Gm Inhaler 0 each INH Q12H [facility], [facility] Last Admin: 10/15/19 23:38 Dose: Not Given Polyethylene Glycol (Miralax) 17 gm PO DAILY [facility] Last Admin: 10/16/19 09:17 Dose: 17 gm Polyethylene Glycol (Miralax) 17 gm PO TID PRN PRN Reason: Constipation Rosuvastatin Calcium (Crestor) 40 mg PO BEDTIME [facility] Last Admin: 10/15/19 21:24 Dose: 40 mg Sodium Chloride (Saline Flush) 10 ml FLUSH ASDIRECTED PRN PRN Reason: Keep Vein Open Sodium Chloride (Saline Flush) 2.5 ml FLUSH ASDIRECTED PRN PRN Reason: Keep Vein Open Spironolactone (Aldactone) 50 mg PO DAILY [facility] Last Admin: 10/16/19 09:16 Dose: 50 mg Discontinued Medications Albuterol/Ipratropium (Duoneb 3.0-0.5 Mg/3 Ml) 3 ml NEB ONETIME ONE Stop: 10/13/19 16:20 Last Admin: 10/13/19 16:26 Dose: 3 ml Albuterol/Ipratropium (Duoneb 3.0-0.5 Mg/3 Ml) 3 ml NEB Q4HRRT PRN PRN Reason: Shortness Of Breath/wheezing Last Admin: 10/14/19 10:10 Dose: 3 ml Albuterol/Ipratropium (Duoneb 3.0-0.5 Mg/3 Ml) 3 ml NEB Q4HRRT [facility] Last Admin: 10/15/19 18:09 Dose: 3 ml Aspirin (Ecotrin) 325 mg PO ONETIME ONE Stop: 10/15/19 09:52 Last Admin: 10/15/19 10:18 Dose: 325 mg Diphenhydramine HCl (Benadryl) 50 mg IVPUSH ONETIME ONE Stop: 10/15/19 18:01 Last Admin: 10/15/19 17:07 Dose: 50 mg Enoxaparin Sodium (Lovenox) 40 mg SUBCUT Q24H MAGEN Last Admin: 10/14/19 17:56 Dose: 40 mg Enoxaparin Sodium (Lovenox) 110 mg SUBCUT Q12H MAG[facility] Last Admin: 10/15/19 10:15 Dose: Not Given Furosemide (Lasix) 40 mg IVPUSH NOW ONE Stop: 10/13/19 18:15 Last Admin: 10/13/19 18:28 Dose: 40 mg Piperacillin Sod/Tazobactam (Sod 4.5 gm/ Sodium Chloride) 100 mls @ 100 mls/hr IV ONETIME ONE Stop: 10/13/19 19:13 Last Admin: 10/13/19 18:59 Dose: Not Given Sodium Chloride (Normal Saline) 1,000 mls @ 150 mls/hr IV STAT ONE Stop: 10/14/19 01:37 Last Admin: 10/13/19 19:06 Dose: 150 mls/hr Influenza Virus Vaccine (Pharmacy To Dose - Influenza Vaccine) 1 each IM ONETIME ONE Stop: 10/15/19 10:01 Influenza Virus Vaccine (Fluzone High-Dose 2018- Syringe) 180 mcg IM .ONCE ONE Stop: 10/13/19 22:01 Insulin Aspart (Novolog) 0 unit SUBCUT TIDAC MAGEN; Protocol Insulin Aspart (Novolog) 0 unit SUBCUT TIDAC MAGEN; Protocol Insulin Glargine (Lantus Solostar) 28 units SUBCUT BEDTIME MAGEN Last Admin: 10/13/19 23:04 Dose: 28 units Insulin Glargine (Lantus Solostar) 30 units SUBCUT BEDTIME MAGEN Last Admin: 10/14/19 22:08 Dose: 30 units Insulin Glargine (Lantus Solostar) 32 units SUBCUT BEDTIME MAGEN Last Admin: 10/15/19 21:28 Dose: 32 units Iopamidol (Isovue Multipack-370 (76%)) 120 ml IVPUSH ONETIME STA Stop: 10/15/19 19:01 Last Admin: 10/15/19 19:01 Dose: 120 ml Methylprednisolone Sodium Succinate (Solu-Medrol) 125 mg IVPUSH ONETIME ONE Stop: 10/13/19 16:20 Last Admin: 10/13/19 16:26 Dose: 125 mg Methylprednisolone Sodium Succinate (Solu-Medrol) 40 mg IVPUSH Q4H MAGEN Stop: 10/15/19 18:01 Last Admin: 10/15/19 17:44 Dose: 40 mg Morphine Sulfate (Morphine) 2 mg IVPUSH Q2H PRN PRN Reason: Pain (severe 7-10) Stop: 10/14/19 18:44 Last Admin: 10/13/19 23:37 Dose: 2 mg - My Orders Last 24 Hours: My Active Orders 10/15/19 18:10 Neurovascular Check [RC] Q2HR 10/15/19 18:13 Insulin Aspart [NovoLOG] 5 unit SUBCUT TIDAC - Plan Plan:: I have seen and evaluated the patient and agree with the residents note unless specified in my note
[2019-10-14] MEDS ORDERED: Insulin Glargine,Human Rec. Analog 100 Units/ML 3 ML Pen SUBCUT SCH (21:00)
[2019-10-15] MEDS: Budesonide/Formoterol 160-4.5 MCG/Puff 6 GM Inhaler INH SCH ×3 (00:15→23:38)
[2019-10-15] MEDS: Acetaminophen/HYDROcodone 325-10 MG Tab PO PRN ×2 (04:18→18:58)
[2019-10-15 05:59] LABS: BLOOD UREA NITROGEN,BUN 22 mg/dL (7.0-18.0); CARBON DIOXIDE,CO2 35.7 mmol/L (21.0-32.0); CHLORIDE,CL 100 mmol/L (98-107); GLUCOSE RANDOM 306 mg/dL (74-106); POTASSIUM,K 4.2 mmol/L (3.5-5.1); SODIUM,NA 138 mmol/L (136-148)
[2019-10-15] MEDS: Codeine/guaiFENesin 100-10 MG/5 ML Syrup 5 ML Cup PO PRN (06:23)
[2019-10-15] MEDS ORDERED: Enoxaparin 100 MG/1 ML Syringe SUBCUT SCH (08:45)
[2019-10-15] MEDS: Insulin Aspart 100 Units/ML 3 ML Pen SUBCUT SCH ×4 (09:50→18:29)
[2019-10-15] MEDS ORDERED: Aspirin 325 MG Tab.EC PO ONE (09:51)
[2019-10-15] MEDS: Benzonatate 100 MG Cap PO SCH ×2 (09:54→21:24)
[2019-10-15] MEDS: Pantoprazole 40 MG Tab.CR PO SCH (09:54)
[2019-10-15] MEDS: Metoprolol Tartrate 50 MG Tab PO SCH ×2 (09:54→21:24)
[2019-10-15] MEDS: Clopidogrel 75 MG Tab PO SCH (09:55)
[2019-10-15] MEDS: Spironolactone 25 MG Tab PO SCH (09:55)
[2019-10-15] MEDS: Citalopram 20 MG Tab PO SCH (09:55)
[2019-10-15] MEDS: Gabapentin 300 MG Cap PO SCH ×4 (09:57→21:24)
[2019-10-15] MEDS: Polyethylene Glycol 3350 Powder 17 GM Packet PO SCH (09:57)
[2019-10-15] MEDS: Aspirin 81 MG Tab.EC PO SCH (09:57)
[2019-10-15] MEDS: methylPREDNISolone Sodium Succinate 40 MG/1 ML SDV IVPUSH SCH ×3 (09:58→17:44)
[2019-10-15] MEDS: Azithromycin 500 MG in Sodium Chloride 0.9% 250 ML IV SCH (10:02)
--- NOTE | 2019-10-15 10:19 | US ---
INDICATION: Bilateral lower extremity pain and swelling. TECHNIQUE: : Ultrasound venous duplex lower extremity bilateral. Compression venous exam was performed using freire-scale, color Doppler, and spectral Doppler imaging. COMPARISON: No comparison. FINDINGS: Sonographic imaging demonstrates the common femoral, profunda femoral, superficial femoral, popliteal, posterior tibial and greater saphenous veins to be fully compressible with normal color Doppler blood flow and augmentation in both lower extremities. IMPRESSION: No sign of deep venous thrombosis. Dictated by Marcus Hurtado MD @ Oct 15 2019 10:18AM Signed by Dr. Marcus Hurtado @ Oct 15 2019 10:18AM
[2019-10-15] MEDS: Albuterol/Ipratropium 3.0-0.5 MG/3 ML Neb Soln NEB SCH ×5 (10:32→22:19)
[2019-10-15 10:36] LABS: HEMOGLOBIN A1C 9.4 % (4.5-6.2)
--- NOTE | 2019-10-15 10:53 | US ---
Exam: The bilateral lower extremity arteries were examined per exam specific protocol with freire-scale ultrasound, color-flow and Doppler spectral analysis. Peak systolic velocities (PSV), Doppler waveform quality and velocity ratios if applicable, were documented at sites per exam specific protocol. Indication: Fullness of the left lower leg. Comparison: None. Findings: RIGHT: C D STILL OPERATOR: 85 cm/sec; biphasic waveforms SFA PROX: 71 cm/sec; monophasic waveforms SFA MID: 49 cm/sec; monophasic waveforms SFA DIST: 62 cm/sec; monophasic waveforms POP PROX: 49 cm/sec; monophasic waveforms POP DIST: 44 cm/sec; monophasic waveforms SLITTER PROCESSED FILM: 66 cm/sec; monophasic waveforms DPA: 56 cm/sec; monophasic waveforms LEFT: C D STILL OPERATOR: 61 cm/sec; biphasic waveforms SFA PROX: 72 cm/sec; biphasic waveforms SFA MID: 78 cm/sec; biphasic waveforms SFA DIST: 74 cm/sec; triphasic waveforms POP PROX: 52 cm/sec; biphasic waveforms POP DIST: 47 cm/sec; biphasic waveforms SLITTER PROCESSED FILM: 90 cm/sec; biphasic waveforms DPA: 53 cm/sec; biphasic waveforms Impression: 1. Patent right lower extremity arteries with transition from multiphasic flow in the C D STILL OPERATOR to monophasic flow distally suggestive of a hemodynamically significant distal C D STILL OPERATOR or proximal SFA stenosis. Otherwise no evidence of a focal hemodynamically significant stenosis in the right lower extremity arteries. 2. Patent left lower extremity arteries with multiphasic flow. No evidence of a focal hemodynamically significant stenosis. Dictated by Da Pittman MD @ Oct 15 2019 10:45AM (Electronically Signed)
--- NOTE | 2019-10-15 13:49 | CT ---
INDICATION: 79-year-old male. Slurred speech. TECHNIQUE: CT images were acquired from foramen magnum to vertex without contrast. FINDINGS: No acute intracranial hemorrhage. No mass effect or midline shift. There is preservation of the freire-white interface. There are dense atherosclerotic calcifications in the parasellar internal carotid arteries. However no hyperdense cerebral artery sign and no evidence of acute infarction is seen at this time. Tortuous basilar artery. No posterior fossa hemorrhage or mass effect. IMPRESSION: 1. No acute intracranial hemorrhage. No CT evidence of acute infarction at this time. 2. Atherosclerotic changes as described. Please note that all CT scans at this facility use dose modulation, iterative reconstruction, and/or weight-based dosing when appropriate to reduce radiation dose to as low as reasonably achievable. Dictated by Omer Cristina MD @ Oct 15 2019 1:46PM Signed by Dr. Omer Cristina @ Oct 15 2019 1:48PM
--- NOTE | 2019-10-15 15:09 | PCM.PN ---
<Joel Jose - Last Filed: 10/15/19 17:20> - General Info Date of Service: 10/15/19 Subjective Update: no acute events overnight. However, this morning the patient was complaining of left lower extremity pain. Lower extremity was colder compared to right leg. Ordered venous and arterial duplex which did not show any embolism but did show some stenosis. Ordered CT angio of lower extremities however patient has an allergy to contrast so we are doing a steroid premedication before CT angio. In addition, stroke code was called later in the day for change in speech, mentation. CT head was negative for any intracranial hemorrhage. trending troponins which initial one was negative. - Patient Data Vitals - Most Recent: Last Vital Signs Temp 36.5 C 10/15/19 13:59 Pulse 78 10/15/19 13:59 Resp 20 10/15/19 13:59 BP 150/67 H 10/15/19 13:59 Pulse Ox 96 10/15/19 13:59 Weight - Most Recent: 108.499 kg I&O - Last 24 Hours: Intake & Output 10/15/19 10/15/19 10/15/19 06:59 14:59 22:59 Intake Total 600 Output Total 300 Balance 300 Lab Results Last 24 Hours: Laboratory Results - last 24 hr 10/14/19 10/14/19 10/15/19 Range/Units 17:34 22:00 05:10 WBC 11.74 H (4.0-11.0) K/uL RBC 4.44 L (4.50-5.90) M/uL Hgb 12.6 L (13.0-17.0) g/dL Hct 39.8 (38.0-50.0) % MCV 89.6 (80.0-98.0) fL MCH 28.4 (27.0-32.0) pg MCHC 31.7 (31.0-37.0) g/dL RDW Std Deviation 51.0 (28.0-62.0) fl RDW Coeff of Rocco 15 (11.0-15.0) % Plt Count 291 (150-400) K/uL MPV 9.90 (7.40-12.00) fL Neut % (Auto) 75.8 (48.0-80.0) % Lymph % (Auto) 17.0 (16.0-40.0) % Howell % (Auto) 6.9 (0.0-15.0) % Eos % (Auto) 0.2 (0.0-7.0) % Baso % (Auto) 0.1 (0.0-1.5) % Neut # (Auto) 8.9 H (1.4-5.7) K/uL Lymph # (Auto) 2.0 (0.6-2.4) K/uL Howell # (Auto) 0.8 (0.0-0.8) K/uL Eos # (Auto) 0.0 (0.0-0.7) K/uL Baso # (Auto) 0.0 (0.0-0.1) K/uL Nucleated RBC % 0.0 /100WBC Nucleated RBCs # 0 K/uL Sodium (136-148) mmol/L Potassium (3.5-5.1) mmol/L Chloride (98-107) mmol/L Carbon Dioxide (21.0-32.0) mmol/L BUN (7.0-18.0) mg/dL Creatinine (0.8-1.3) mg/dL Est Cr Clr Drug Dosing mL/min Estimated GFR (MDRD) ml/min Glucose (74-106) mg/dL POC Glucose 308 H 328 H (60-110) mg/dL Hemoglobin A1c (4.5-6.2) % Calcium (8.5-10.1) mg/dL Total Bilirubin (0.2-1.0) mg/dL AST (15-37) IU/L ALT (14-63) IU/L Alkaline Phosphatase (46-116) U/L Troponin I (0.000-0.056) ng/mL Total Protein (6.4-8.2) g/dL Albumin (3.4-5.0) g/dL Globulin (2.6-4.0) g/dL Albumin/Globulin Ratio (0.9-1.6) Triglycerides (0-200) mg/dL Cholesterol (50-200) mg/dL LDL Cholesterol, Calc (60-180) mg/dL VLDL Cholesterol (5-55) mg/dL HDL Cholesterol (40-60) mg/dL Cholesterol/HDL Ratio (3.3-6.0) 10/15/19 10/15/19 10/15/19 Range/Units 05:10 05:20 05:20 WBC (4.0-11.0) K/uL RBC (4.50-5.90) M/uL Hgb (13.0-17.0) g/dL Hct (38.0-50.0) % MCV (80.0-98.0) fL MCH (27.0-32.0) pg MCHC (31.0-37.0) g/dL RDW Std Deviation (28.0-62.0) fl RDW Coeff of Rocco (11.0-15.0) % Plt Count (150-400) K/uL MPV (7.40-12.00) fL Neut % (Auto) (48.0-80.0) % Lymph % (Auto) (16.0-40.0) % Howell % (Auto) (0.0-15.0) % Eos % (Auto) (0.0-7.0) % Baso % (Auto) (0.0-1.5) % Neut # (Auto) (1.4-5.7) K/uL Lymph # (Auto) (0.6-2.4) K/uL Howell # (Auto) (0.0-0.8) K/uL Eos # (Auto) (0.0-0.7) K/uL Baso # (Auto) (0.0-0.1) K/uL Nucleated RBC % /100WBC Nucleated RBCs # K/uL Sodium 138 (136-148) mmol/L Potassium 4.2 (3.5-5.1) mmol/L Chloride 100 (98-107) mmol/L Carbon Dioxide 35.7 H (21.0-32.0) mmol/L BUN 22 H (7.0-18.0) mg/dL Creatinine 1.0 (0.8-1.3) mg/dL Est Cr Clr Drug Dosing 63.02 mL/min Estimated GFR (MDRD) > 60.0 ml/min Glucose 306 H (74-106) mg/dL POC Glucose (60-110) mg/dL Hemoglobin A1c 9.4 H (4.5-6.2) % Calcium 8.6 (8.5-10.1) mg/dL Total Bilirubin 0.2 (0.2-1.0) mg/dL AST 18 (15-37) IU/L ALT 21 (14-63) IU/L Alkaline Phosphatase 76 (46-116) U/L Troponin I (0.000-0.056) ng/mL Total Protein 6.7 (6.4-8.2) g/dL Albumin 2.8 L (3.4-5.0) g/dL Globulin 3.9 (2.6-4.0) g/dL Albumin/Globulin Ratio 0.7 L (0.9-1.6) Triglycerides 340 H (0-200) mg/dL Cholesterol 149 (50-200) mg/dL LDL Cholesterol, Calc 53 L (60-180) mg/dL VLDL Cholesterol 68 H (5-55) mg/dL HDL Cholesterol 28 L (40-60) mg/dL Cholesterol/HDL Ratio 5.3 (3.3-6.0) 10/15/19 10/15/19 10/15/19 Range/Units 06:37 11:53 13:26 WBC (4.0-11.0) K/uL RBC (4.50-5.90) M/uL Hgb (13.0-17.0) g/dL Hct (38.0-50.0) % MCV (80.0-98.0) fL MCH (27.0-32.0) pg MCHC (31.0-37.0) g/dL RDW Std Deviation (28.0-62.0) fl RDW Coeff of Rocco (11.0-15.0) % Plt Count (150-400) K/uL MPV (7.40-12.00) fL Neut % (Auto) (48.0-80.0) % Lymph % (Auto) (16.0-40.0) % Howell % (Auto) (0.0-15.0) % Eos % (Auto) (0.0-7.0) % Baso % (Auto) (0.0-1.5) % Neut # (Auto) (1.4-5.7) K/uL Lymph # (Auto) (0.6-2.4) K/uL Howell # (Auto) (0.0-0.8) K/uL Eos # (Auto) (0.0-0.7) K/uL Baso # (Auto) (0.0-0.1) K/uL Nucleated RBC % /100WBC Nucleated RBCs # K/uL Sodium (136-148) mmol/L Potassium (3.5-5.1) mmol/L Chloride (98-107) mmol/L Carbon Dioxide (21.0-32.0) mmol/L BUN (7.0-18.0) mg/dL Creatinine (0.8-1.3) mg/dL Est Cr Clr Drug Dosing mL/min Estimated GFR (MDRD) ml/min Glucose (74-106) mg/dL POC Glucose 270 H 281 H 307 H (60-110) mg/dL Hemoglobin A1c (4.5-6.2) % Calcium (8.5-10.1) mg/dL Total Bilirubin (0.2-1.0) mg/dL AST (15-37) IU/L ALT (14-63) IU/L Alkaline Phosphatase (46-116) U/L Troponin I (0.000-0.056) ng/mL Total Protein (6.4-8.2) g/dL Albumin (3.4-5.0) g/dL Globulin (2.6-4.0) g/dL Albumin/Globulin Ratio (0.9-1.6) Triglycerides (0-200) mg/dL Cholesterol (50-200) mg/dL LDL Cholesterol, Calc (60-180) mg/dL VLDL Cholesterol (5-55) mg/dL HDL Cholesterol (40-60) mg/dL Cholesterol/HDL Ratio (3.3-6.0) 10/15/19 Range/Units 14:15 WBC (4.0-11.0) K/uL RBC (4.50-5.90) M/uL Hgb (13.0-17.0) g/dL Hct (38.0-50.0) % MCV (80.0-98.0) fL MCH (27.0-32.0) pg MCHC (31.0-37.0) g/dL RDW Std Deviation (28.0-62.0) fl RDW Coeff of Rocco (11.0-15.0) % Plt Count (150-400) K/uL MPV (7.40-12.00) fL Neut % (Auto) (48.0-80.0) % Lymph % (Auto) (16.0-40.0) % Howell % (Auto) (0.0-15.0) % Eos % (Auto) (0.0-7.0) % Baso % (Auto) (0.0-1.5) % Neut # (Auto) (1.4-5.7) K/uL Lymph # (Auto) (0.6-2.4) K/uL Howell # (Auto) (0.0-0.8) K/uL Eos # (Auto) (0.0-0.7) K/uL Baso # (Auto) (0.0-0.1) K/uL Nucleated RBC % /100WBC Nucleated RBCs # K/uL Sodium (136-148) mmol/L Potassium (3.5-5.1) mmol/L Chloride (98-107) mmol/L Carbon Dioxide (21.0-32.0) mmol/L BUN (7.0-18.0) mg/dL Creatinine (0.8-1.3) mg/dL Est Cr Clr Drug Dosing mL/min Estimated GFR (MDRD) ml/min Glucose (74-106) mg/dL POC Glucose (60-110) mg/dL Hemoglobin A1c (4.5-6.2) % Calcium (8.5-10.1) mg/dL Total Bilirubin (0.2-1.0) mg/dL AST (15-37) IU/L ALT (14-63) IU/L Alkaline Phosphatase (46-116) U/L Troponin I < 0.050 (0.000-0.056) ng/mL Total Protein (6.4-8.2) g/dL Albumin (3.4-5.0) g/dL Globulin (2.6-4.0) g/dL Albumin/Globulin Ratio (0.9-1.6) Triglycerides (0-200) mg/dL Cholesterol (50-200) mg/dL LDL Cholesterol, Calc (60-180) mg/dL VLDL Cholesterol (5-55) mg/dL HDL Cholesterol (40-60) mg/dL Cholesterol/HDL Ratio (3.3-6.0) Jason Results Last 24 Hours: Microbiology 10/13/19 23:00 Streptococcus pneumoniae Antigen (M - Final Urine 10/13/19 23:00 Legionella Urinary Antigen - Final Urine 10/13/19 18:49 Aerobic Blood Culture - Preliminary Blood - Venous - Lab Draw NO GROWTH AFTER 1 DAY Anaerobic Blood Culture - Preliminary NO GROWTH AFTER 1 DAY 10/13/19 18:38 Aerobic Blood Culture - Preliminary Blood - Venous NO GROWTH AFTER 1 DAY Anaerobic Blood Culture - Preliminary NO GROWTH AFTER 1 DAY 10/14/19 18:00 Influenza Type A Antigen Screen - Final Nasopharyngeal Swab NEGATIVE INFLUENZA A VIRUS AG REFERENCE RANGE: NEGATIVE Influenza Type B Antigen Screen - Final NEGATIVE INFLUENZA B VIRUS AG REFERENCE RANGE: NEGATIVE Med Orders - Current: Current Medications Acetaminophen (Tylenol) 650 mg PO Q4H PRN PRN Reason: Pain (Mild 1-3)/fever Last Admin: 10/13/19 21:22 Dose: 650 mg Hydrocodone Bitart/Acetaminophen (Philo 325-10 Mg) 1 tab PO Q6H PRN PRN Reason: Pain Last Admin: 10/15/19 04:18 Dose: 1 tab Albuterol/Ipratropium (Duoneb 3.0-0.5 Mg/3 Ml) 3 ml NEB Q4HRRT [facility] Last Admin: 10/15/19 14:27 Dose: 3 ml Aspirin (Halfprin) 81 mg PO DAILY [facility] Last Admin: 10/15/19 09:57 Dose: 81 mg Benzonatate (Tessalon Perles) 200 mg PO BID [facility] Last Admin: 10/15/19 09:54 Dose: 200 mg Bisacodyl (Dulcolax) 10 mg PO DAILY PRN PRN Reason: Constipation Citalopram Hydrobromide (Celexa) 10 mg PO DAILY [facility] Last Admin: 10/15/19 09:55 Dose: 10 mg Clopidogrel Bisulfate (Plavix) 75 mg PO DAILY [facility] Last Admin: 10/15/19 09:55 Dose: 75 mg Diphenhydramine HCl (Benadryl) 50 mg IVPUSH ONETIME ONE Stop: 10/15/19 18:01 Gabapentin (Neurontin) 300 mg PO BID@12,18 [facility] Last Admin: 10/15/19 13:56 Dose: 300 mg Gabapentin (Neurontin) 600 mg PO BID [facility] Last Admin: 10/15/19 09:57 Dose: 600 mg Guaifenesin/Codeine Phosphate (Robitussin Ac) 5 ml PO Q6H PRN PRN Reason: Cough Last Admin: 10/15/19 06:23 Dose: 5 ml Azithromycin 500 mg/ Sodium (Chloride) 250 mls @ 250 mls/hr IV DAILY [facility] Last Admin: 10/15/19 10:02 Dose: 250 mls/hr Ceftriaxone Sodium/Dextrose 1 (gm/ Premix) 50 mls @ 100 mls/hr IV Q24H [facility] Last Admin: 10/14/19 18:35 Dose: 100 mls/hr Insulin Aspart (Novolog) 0 unit SUBCUT TIDAC [facility]; Protocol Last Admin: 10/15/19 12:24 Dose: 9 units Insulin Glargine (Lantus Solostar) 30 units SUBCUT BEDTIME [facility] Last Admin: 10/14/19 22:08 Dose: 30 units Methylprednisolone Sodium Succinate (Solu-Medrol) 40 mg IVPUSH DAILY [facility] Last Admin: 10/15/19 09:58 Dose: 40 mg Methylprednisolone Sodium Succinate (Solu-Medrol) 40 mg IVPUSH Q4H [facility] Stop: 10/15/19 18:01 Last Admin: 10/15/19 14:09 Dose: 40 mg Metoprolol Tartrate (Lopressor) 50 mg PO BID [facility] Last Admin: 10/15/19 09:54 Dose: 50 mg Ondansetron HCl (Zofran Odt) 4 mg PO Q4H PRN PRN Reason: nausea, able to take PO Ondansetron HCl (Zofran) 4 mg IVPUSH Q4H PRN PRN Reason: Nausea Pantoprazole Sodium (Protonix) 40 mg PO DAILY [facility] Last Admin: 10/15/19 09:54 Dose: 40 mg Budesonide/Formoterol 160-4.5 Mcg/Puff 6 Gm Inhaler 0 each INH Q12H [facility] Last Admin: 10/15/19 13:55 Dose: Not Given Polyethylene Glycol (Miralax) 17 gm PO DAILY [facility] Last Admin: 10/15/19 09:57 Dose: 17 gm Polyethylene Glycol (Miralax) 17 gm PO TID PRN PRN Reason: Constipation Rosuvastatin Calcium (Crestor) 40 mg PO BEDTIME [facility] Last Admin: 10/14/19 20:14 Dose: 40 mg Sodium Chloride (Saline Flush) 10 ml FLUSH ASDIRECTED PRN PRN Reason: Keep Vein Open Sodium Chloride (Saline Flush) 2.5 ml FLUSH ASDIRECTED PRN PRN Reason: Keep Vein Open Spironolactone (Aldactone) 50 mg PO DAILY [facility] Last Admin: 10/15/19 09:55 Dose: 50 mg Discontinued Medications Albuterol/Ipratropium (Duoneb 3.0-0.5 Mg/3 Ml) 3 ml NEB ONETIME ONE Stop: 10/13/19 16:20 Last Admin: 10/13/19 16:26 Dose: 3 ml Albuterol/Ipratropium (Duoneb 3.0-0.5 Mg/3 Ml) 3 ml NEB Q4HRRT PRN PRN Reason: Shortness Of Breath/wheezing Last Admin: 10/14/19 10:10 Dose: 3 ml Aspirin (Ecotrin) 325 mg PO ONETIME ONE Stop: 10/15/19 09:52 Last Admin: 10/15/19 10:18 Dose: 325 mg Enoxaparin Sodium (Lovenox) 40 mg SUBCUT Q24H [facility] Last Admin: 10/14/19 17:56 Dose: 40 mg Enoxaparin Sodium (Lovenox) 110 mg SUBCUT Q12H [facility] Last Admin: 10/15/19 10:15 Dose: Not Given Furosemide (Lasix) 40 mg IVPUSH NOW ONE Stop: 10/13/19 18:15 Last Admin: 10/13/19 18:28 Dose: 40 mg Piperacillin Sod/Tazobactam (Sod 4.5 gm/ Sodium Chloride) 100 mls @ 100 mls/hr IV ONETIME ONE Stop: 10/13/19 19:13 Last Admin: 10/13/19 18:59 Dose: Not Given Sodium Chloride (Normal Saline) 1,000 mls @ 150 mls/hr IV STAT ONE Stop: 10/14/19 01:37 Last Admin: 10/13/19 19:06 Dose: 150 mls/hr Influenza Virus Vaccine (Pharmacy To Dose - Influenza Vaccine) 1 each IM ONETIME ONE Stop: 10/15/19 10:01 Influenza Virus Vaccine (Fluzone High-Dose 2018- Syringe) 180 mcg IM .ONCE ONE Stop: 10/13/19 22:01 Insulin Aspart (Novolog) 0 unit SUBCUT TIDAC [facility]; Protocol Insulin Aspart (Novolog) 0 unit SUBCUT TIDAC [facility]; Protocol Insulin Glargine (Lantus Solostar) 28 units SUBCUT BEDTIME [facility] Last Admin: 10/13/19 23:04 Dose: 28 units Methylprednisolone Sodium Succinate (Solu-Medrol) 125 mg IVPUSH ONETIME ONE Stop: 10/13/19 16:20 Last Admin: 10/13/19 16:26 Dose: 125 mg Morphine Sulfate (Morphine) 2 mg IVPUSH Q2H PRN PRN Reason: Pain (severe 7-10) Stop: 10/14/19 18:44 Last Admin: 10/13/19 23:37 Dose: 2 mg - Exam Quality Assessment: Supplemental Oxygen General: Alert, No Acute Distress HEENT: Pupils Equal, Pupils Reactive Lungs: Decreased Breath Sounds, Crackles, Wheezing Cardiovascular: Regular Rate, Regular Rhythm GI/Abdominal Exam: Normal Bowel Sounds, Soft, Non-Tender Extremities: Other (left lower extremity is cooler to touch compared to right foot. faint left PT pulse. Intact left popliteal pulse. ) - Problem List Review Problem List Initiated/Reviewed/Updated: Yes - My Orders Last 24 Hours: My Active Orders 10/14/19 18:00 Gabapentin [Neurontin] 300 mg PO BID@18 10/14/19 21:00 Gabapentin [Neurontin] 600 mg PO BID Insulin Glarg,Human.Rec.Analog [LantUS Solostar] 30 units SUBCUT BEDTIME Metoprolol Tartrate [Lopressor] 50 mg PO BID Rosuvastatin [Crestor] 40 mg PO BEDTIME 10/15/19 08:45 Albuterol/Ipratropium [DuoNeb 3.0-0.5 MG/3 ML] 3 ml NEB Q4HRRT 10/15/19 09:00 Polyethylene Glycol 3350 [MiraLAX] 17 gm PO DAILY 10/15/19 14:00 methylPREDNISolone Sod Succ [Solu-MEDROL] 40 mg IVPUSH Q4H 10/15/19 14:39 Echo 2D wo Cont [US] Urgent 10/15/19 14:41 Ang Neck wo Cont [MR] Urgent Brain wo Cont [MR] Urgent 10/15/19 18:00 diphenhydrAMINE [Benadryl] 50 mg IVPUSH ONETIME ONE 10/16/19 05:11 CBC WITH AUTO DIFF [HEME] AM COMPREHENSIVE METABOLIC PN,CMP [CHEM] AM - Plan Plan:: A: 1. colder left lower extremity 2. slurred speech 3. Community acquired pneumonia 4. COPD exacerbation 5. Hypertension 6. DM2 7. Hx CAD s/p stent placement P: 1. Suspect that he may have an arterial embolism due to colder lower extremity. However, another possibility could be that he has severe PAD. Will do steroid premedication protocol before he receive contrast tonight for CT angio. For his slurred speech, it's likely that he had a TIA. However, CT head did not show any bleeding. Pending MRI brain, neck. Trending troponins which have been negative so far. For now, will continue with IV antibiotics and methylprednisolone. Neuro checks Q4H for now. Dispo: pending imaging <Carmen Tineo - Last Filed: 10/16/19 21:48> - Patient Data Vitals - Most Recent: Last Vital Signs Temp 35.7 C 10/16/19 07:53 Pulse 97 10/16/19 09:16 Resp 17 10/16/19 07:53 BP 160/73 H 10/16/19 09:16 Pulse Ox 94 L 10/16/19 07:53 I&O - Last 24 Hours: Intake & Output 10/16/19 10/16/19 10/16/19 06:59 14:59 22:59 Intake Total 700 800 Output Total 1450 1000 Balance -750 -200 Lab Results Last 24 Hours: Laboratory Results - last 24 hr 10/16/19 10/16/19 10/16/19 Range/Units 05:45 05:45 06:19 WBC 10.86 (4.0-11.0) K/uL RBC 4.50 (4.50-5.90) M/uL Hgb 12.9 L (13.0-17.0) g/dL Hct 40.3 (38.0-50.0) % MCV 89.6 (80.0-98.0) fL MCH 28.7 (27.0-32.0) pg MCHC 32.0 (31.0-37.0) g/dL RDW Std Deviation 50.1 (28.0-62.0) fl RDW Coeff of Rocco 16 H (11.0-15.0) % Plt Count 274 (150-400) K/uL MPV 10.00 (7.40-12.00) fL Neut % (Auto) 82.4 H (48.0-80.0) % Lymph % (Auto) 12.4 L (16.0-40.0) % Howell % (Auto) 5.2 (0.0-15.0) % Eos % (Auto) 0.0 (0.0-7.0) % Baso % (Auto) 0.0 (0.0-1.5) % Neut # (Auto) 8.9 H (1.4-5.7) K/uL Lymph # (Auto) 1.4 (0.6-2.4) K/uL Howell # (Auto) 0.6 (0.0-0.8) K/uL Eos # (Auto) 0.0 (0.0-0.7) K/uL Baso # (Auto) 0.0 (0.0-0.1) K/uL Nucleated RBC % 0.0 /100WBC Nucleated RBCs # 0 K/uL Sodium 138 (136-148) mmol/L Potassium 4.9 (3.5-5.1) mmol/L Chloride 100 (98-107) mmol/L Carbon Dioxide 32.8 H (21.0-32.0) mmol/L BUN 24 H (7.0-18.0) mg/dL Creatinine 1.0 (0.8-1.3) mg/dL Est Cr Clr Drug Dosing 63.02 mL/min Estimated GFR (MDRD) > 60.0 ml/min Glucose 329 H (74-106) mg/dL POC Glucose 323 H (60-110) mg/dL Calcium 8.9 (8.5-10.1) mg/dL Total Bilirubin 0.2 (0.2-1.0) mg/dL AST 15 (15-37) IU/L ALT 28 (14-63) IU/L Alkaline Phosphatase 78 (46-116) U/L Total Protein 6.3 L (6.4-8.2) g/dL Albumin 3.1 L (3.4-5.0) g/dL Globulin 3.2 (2.6-4.0) g/dL Albumin/Globulin Ratio 1.0 (0.9-1.6) Jason Results Last 24 Hours: Microbiology 11/13/19 18:49 Aerobic Blood Culture - Preliminary Blood - Venous - Lab Draw NO GROWTH AFTER 3 DAYS Anaerobic Blood Culture - Preliminary NO GROWTH AFTER 3 DAYS 10/13/19 18:38 Aerobic Blood Culture - Preliminary Blood - Venous NO GROWTH AFTER 3 DAYS Anaerobic Blood Culture - Preliminary NO GROWTH AFTER 3 DAYS 10/13/19 23:00 Gram Stain - Final Sputum - Expectorated Sputum Culture - Final Normal Respiratory Nadia YEAST Med Orders - Current: Current Medications Discontinued Medications Acetaminophen (Tylenol) 650 mg PO Q4H PRN PRN Reason: Pain (Mild 1-3)/fever Last Admin: 10/13/19 21:22 Dose: 650 mg Hydrocodone Bitart/Acetaminophen (Philo 325-10 Mg) 1 tab PO Q6H PRN PRN Reason: Pain Last Admin: 10/16/19 07:45 Dose: 1 tab Albuterol/Ipratropium (Duoneb 3.0-0.5 Mg/3 Ml) 3 ml NEB ONETIME ONE Stop: 10/13/19 16:20 Last Admin: 10/13/19 16:26 Dose: 3 ml Albuterol/Ipratropium (Duoneb 3.0-0.5 Mg/3 Ml) 3 ml NEB Q4HRRT PRN PRN Reason: Shortness Of Breath/wheezing Last Admin: 10/14/19 10:10 Dose: 3 ml Albuterol/Ipratropium (Duoneb 3.0-0.5 Mg/3 Ml) 3 ml NEB Q4HRRT [facility] Last Admin: 10/15/19 18:09 Dose: 3 ml Albuterol/Ipratropium (Duoneb 3.0-0.5 Mg/3 Ml) 3 ml NEB Q8HRRT [facility] Last Admin: 10/16/19 06:14 Dose: 3 ml Aspirin (Halfprin) 81 mg PO DAILY [facility] Last Admin: 10/16/19 09:16 Dose: 81 mg Aspirin (Ecotrin) 325 mg PO ONETIME ONE Stop: 10/15/19 09:52 Last Admin: 10/15/19 10:18 Dose: 325 mg Benzonatate (Tessalon Perles) 200 mg PO BID [facility] Last Admin: 10/16/19 09:15 Dose: 200 mg Bisacodyl (Dulcolax) 10 mg PO DAILY PRN PRN Reason: Constipation Citalopram Hydrobromide (Celexa) 10 mg PO DAILY [facility] Last Admin: 10/16/19 09:17 Dose: 10 mg Clopidogrel Bisulfate (Plavix) 75 mg PO DAILY [facility] Last Admin: 10/16/19 09:16 Dose: 75 mg Diphenhydramine HCl (Benadryl) 50 mg IVPUSH ONETIME ONE Stop: 10/15/19 18:01 Last Admin: 10/15/19 17:07 Dose: 50 mg Enoxaparin Sodium (Lovenox) 40 mg SUBCUT Q24H [facility] Last Admin: 10/14/19 17:56 Dose: 40 mg Enoxaparin Sodium (Lovenox) 110 mg SUBCUT Q12H [facility] Last Admin: 10/15/19 10:15 Dose: Not Given Furosemide (Lasix) 40 mg IVPUSH NOW ONE Stop: 10/13/19 18:15 Last Admin: 10/13/19 18:28 Dose: 40 mg Gabapentin (Neurontin) 300 mg PO BID@12,18 [facility] Last Admin: 10/16/19 12:33 Dose: 300 mg Gabapentin (Neurontin) 600 mg PO BID [facility] Last Admin: 10/16/19 09:16 Dose: 600 mg Guaifenesin/Codeine Phosphate (Robitussin Ac) 5 ml PO Q6H PRN PRN Reason: Cough Last Admin: 10/15/19 06:23 Dose: 5 ml Piperacillin Sod/Tazobactam (Sod 4.5 gm/ Sodium Chloride) 100 mls @ 100 mls/hr IV ONETIME ONE Stop: 10/13/19 19:13 Last Admin: 10/13/19 18:59 Dose: Not Given Azithromycin 500 mg/ Sodium (Chloride) 250 mls @ 250 mls/hr IV DAILY [facility] Last Admin: 10/16/19 09:17 Dose: 250 mls/hr Ceftriaxone Sodium/Dextrose 1 (gm/ Premix) 50 mls @ 100 mls/hr IV Q24H [facility] Last Admin: 10/15/19 18:59 Dose: 100 mls/hr Sodium Chloride (Normal Saline) 1,000 mls @ 150 mls/hr IV STAT ONE Stop: 10/14/19 01:37 Last Admin: 10/13/19 19:06 Dose: 150 mls/hr Influenza Virus Vaccine (Pharmacy To Dose - Influenza Vaccine) 1 each IM ONETIME ONE Stop: 10/15/19 10:01 Influenza Virus Vaccine (Fluzone High-Dose 2018- Syringe) 180 mcg IM .ONCE ONE Stop: 10/13/19 22:01 Influenza Virus Vaccine (Fluzone High-Dose 2018- Syringe) 180 mcg IM .ONCE ONE Stop: 10/16/19 13:46 Last Admin: 10/16/19 13:40 Dose: 180 mcg Insulin Aspart (Novolog) 0 unit SUBCUT TIDAC MAGEN; Protocol Insulin Aspart (Novolog) 0 unit SUBCUT TIDAC MAGEN; Protocol Insulin Aspart (Novolog) 0 unit SUBCUT TIDAC MAGEN; Protocol Last Admin: 10/16/19 12:34 Dose: 12 units Insulin Aspart (Novolog) 5 unit SUBCUT TIDAC [facility] Last Admin: 10/16/19 12:35 Dose: 5 units Insulin Glargine (Lantus Solostar) 28 units SUBCUT BEDTIME [facility] Last Admin: 10/13/19 23:04 Dose: 28 units Insulin Glargine (Lantus Solostar) 30 units SUBCUT BEDTIME [facility] Last Admin: 10/14/19 22:08 Dose: 30 units Insulin Glargine (Lantus Solostar) 32 units SUBCUT BEDTIME [facility] Last Admin: 10/15/19 21:28 Dose: 32 units Insulin Glargine (Lantus Solostar) 35 units SUBCUT BEDTIME [facility] Iopamidol (Isovue Multipack-370 (76%)) 120 ml IVPUSH ONETIME STA Stop: 10/15/19 19:01 Last Admin: 10/15/19 19:01 Dose: 120 ml Methylprednisolone Sodium Succinate (Solu-Medrol) 125 mg IVPUSH ONETIME ONE Stop: 10/13/19 16:20 Last Admin: 10/13/19 16:26 Dose: 125 mg Methylprednisolone Sodium Succinate (Solu-Medrol) 40 mg IVPUSH DAILY [facility] Last Admin: 10/16/19 09:17 Dose: 40 mg Methylprednisolone Sodium Succinate (Solu-Medrol) 40 mg IVPUSH Q4H MAGEN Stop: 10/15/19 18:01 Last Admin: 10/15/19 17:44 Dose: 40 mg Metoprolol Tartrate (Lopressor) 50 mg PO BID [facility] Last Admin: 10/16/19 09:16 Dose: 50 mg Morphine Sulfate (Morphine) 2 mg IVPUSH Q2H PRN PRN Reason: Pain (severe 7-10) Stop: 10/14/19 18:44 Last Admin: 10/13/19 23:37 Dose: 2 mg Nitroglycerin (Nitrostat) 0.4 mg SL Q5M PRN PRN Reason: Chest Pain Ondansetron HCl (Zofran Odt) 4 mg PO Q4H PRN PRN Reason: nausea, able to take PO Ondansetron HCl (Zofran) 4 mg IVPUSH Q4H PRN PRN Reason: Nausea Pantoprazole Sodium (Protonix) 40 mg PO DAILY [facility] Last Admin: 10/16/19 09:15 Dose: 40 mg Budesonide/Formoterol 160-4.5 Mcg/Puff 6 Gm Inhaler 0 each INH Q12H [facility] Last Admin: 10/16/19 12:38 Dose: Not Given Polyethylene Glycol (Miralax) 17 gm PO DAILY [facility] Last Admin: 10/16/19 09:17 Dose: 17 gm Polyethylene Glycol (Miralax) 17 gm PO TID PRN PRN Reason: Constipation Rosuvastatin Calcium (Crestor) 40 mg PO BEDTIME [facility] Last Admin: 10/15/19 21:24 Dose: 40 mg Sodium Chloride (Saline Flush) 10 ml FLUSH ASDIRECTED PRN PRN Reason: Keep Vein Open Sodium Chloride (Saline Flush) 2.5 ml FLUSH ASDIRECTED PRN PRN Reason: Keep Vein Open Spironolactone (Aldactone) 50 mg PO DAILY [facility] Last Admin: 10/16/19 09:16 Dose: 50 mg - My Orders Last 24 Hours: My Active Orders 10/16/19 12:30 Special Effects Person Discontinue [Cardiac Monitoring Discontinue] [RC] Click to Edit - Plan Plan:: I have seen and evaluated the patient and agree with the residents note unless specified in my note PAD vs Arterial embolus, CTA Left LE pending steroid prep, will f/u CT scan negative for stroke , possible TIA? Will try to get MRI but no a/c tech available over weekend, may need Outpatient MRI cont Plavix, statin cont antihypertensives cont SSI
--- NOTE | 2019-10-15 15:42 | PCM.SN ---
- Free Text/Narrative Note: I went to check on the patient, found him more lethargic, difficult to arouse. His speech was incoherent and slurred, patient c/o tingling in his right arm, slight weakness in grasp on b/l hands more pronounced in right hand was appreciated, rest of neurological exam was normal. so stroke code was called and stat CT scan was ordered. CT scan was negative for acute stroke. EKG showed concern for Acute ischemia er machine reading. Discussed the EKG findings with Egg Sorter Dr Harrison, doesn't think its Acute MS rather chromic changes. Troponin 1st set negative, no chest pain. False positive reading on EKG. Will continue to trend. Will prep the patient in the mean time for Contrast administration to r/o acute thrombosis in left LE
[2019-10-15] MEDS ORDERED: diphenhydrAMINE 50 MG/ML SDV IVPUSH ONE (18:00)
[2019-10-15] MEDS: cefTRIAXone 1 GM in Premix Bag 1 BAG IV SCH (18:59)
[2019-10-15] MEDS ORDERED: Iopamidol 755 MG/ML 500 ML Multipack Bottle IVPUSH STA (19:00)
--- NOTE | 2019-10-15 19:34 | CT ---
Exam: CT angiography of the pelvis and lower extremities with IV contrast. Clinical Information: Cold left lower extremity. Comparison: None. 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 Extensive atheromatous changes of the bilateral femoropopliteal arteries. Patent bilateral common femoral arteries which are ectatic distally measuring 1.4 cm on the right and 2.0 cm on the left. The bilateral profunda femoral arteries are widely patent. The right superficial femoral artery demonstrates moderate multifocal narrowing in the mid aspect and severe multifocal narrowing distally with a probable focal occlusion distally. The left superficial femoral artery is patent with moderate multifocal narrowing of the mid to distal aspect as well as severe focal narrowing distally. Patent bilateral popliteal arteries and runoff vessels. Probable tiny nonobstructing stone in the lower pole of the right kidney. Apparent small cyst in the posterior lower pole of the left kidney. The visualized liver, gallbladder, kidneys, bladder, and prostate are otherwise unremarkable. Normal caliber visualized small bowel and colon. Extensive sigmoid diverticulosis. No lymphadenopathy in the pelvis. Degenerative changes throughout the visualized spine, pelvis, and lower extremities, most notable in the right hip. Left lumbar curve. Small bilateral knee effusions. Small fat containing umbilical hernia. Small metallic foreign body in the subcutaneous tissues of the anterior distal left thigh. Impression: 1. Extensive atheromatous changes of the right SFA with moderate multifocal narrowing in the mid aspect and severe multifocal narrowing distally where there is a probable focal occlusion. 2. Extensive atheromatous changes of the left SFA with moderate multifocal narrowing in the mid to distal aspect and severe focal narrowing distally. 3. Otherwise patent bilateral iliac and lower extremity arteries without evidence of a focal hemodynamically significant stenosis. 4. Aneurysmal dilatation of the infrarenal abdominal aorta measuring 3.4 cm. 5. Aneurysmal dilatation of the right ADELITA measuring 3.3 cm, ectasia of the right IIA measuring 2.4 cm, and ectasia of the left ADELITA measuring 2.4 cm. 6. Extensive sigmoid diverticulosis. Please note that all CT scans at this facility use dose modulation, iterative reconstruction, and/or weight-based dosing when appropriate to reduce radiation dose to as low as reasonably achievable. Dictated by Da Pittman MD @ Oct 18 2019 2:49PM (Electronically Signed)
[2019-10-15] MEDS ORDERED: Insulin Glargine,Human Rec. Analog 100 Units/ML 3 ML Pen SUBCUT SCH (21:00)
[2019-10-15] MEDS: Rosuvastatin 10 MG Tab PO SCH (21:24)
[2019-10-16] MEDS: Acetaminophen/HYDROcodone 325-10 MG Tab PO PRN ×2 (01:27→07:45)
[2019-10-16] MEDS: Albuterol/Ipratropium 3.0-0.5 MG/3 ML Neb Soln NEB SCH (06:14)
[2019-10-16 06:46] LABS: BLOOD UREA NITROGEN,BUN 24 mg/dL (7.0-18.0); CARBON DIOXIDE,CO2 32.8 mmol/L (21.0-32.0); CHLORIDE,CL 100 mmol/L (98-107); GLUCOSE RANDOM 329 mg/dL (74-106); POTASSIUM,K 4.9 mmol/L (3.5-5.1); SODIUM,NA 138 mmol/L (136-148)
[2019-10-16] MEDS: Insulin Aspart 100 Units/ML 3 ML Pen SUBCUT SCH ×4 (07:45→12:35)
[2019-10-16] MEDS: Benzonatate 100 MG Cap PO SCH (09:15)
[2019-10-16] MEDS: Pantoprazole 40 MG Tab.CR PO SCH (09:15)
[2019-10-16] MEDS: Clopidogrel 75 MG Tab PO SCH (09:16)
[2019-10-16] MEDS: Gabapentin 300 MG Cap PO SCH ×2 (09:16→12:33)
[2019-10-16] MEDS: Aspirin 81 MG Tab.EC PO SCH (09:16)
[2019-10-16] MEDS: Spironolactone 25 MG Tab PO SCH (09:16)
[2019-10-16] MEDS: Metoprolol Tartrate 50 MG Tab PO SCH (09:16)
[2019-10-16] MEDS: Citalopram 20 MG Tab PO SCH (09:17)
[2019-10-16] MEDS: Azithromycin 500 MG in Sodium Chloride 0.9% 250 ML IV SCH (09:17)
[2019-10-16] MEDS: Polyethylene Glycol 3350 Powder 17 GM Packet PO SCH (09:17)
[2019-10-16] MEDS: methylPREDNISolone Sodium Succinate 40 MG/1 ML SDV IVPUSH SCH (09:17)
--- NOTE | 2019-10-16 11:15 | PCM.DCSUM1 ---
<Joel Jose - Last Filed: 10/16/19 13:58> Discharge Summary - Hospital Course Free Text/Narrative:: 79 y/o male with history of CAD s/p stent placement, COPD, diabetes type 2, hypertension who presented to the ER complaining of worsening shortness of breath. He was admitted for sepsis secondary community acquired pneumonia. He was started on ceftriaxone and azithromycin. His WBC improved from 14k down to 10K. He remained afebrile. He needed scheduled Duonebs and daily methylprednisolone. He started improving, however, during his hospitalization he was noted to have cool lower extremities. There was a concern for an arterial thrombus so CT angio was ordered which was negative for any arterial thrombi. However, it did show that he had severe stenosis, peripheral arterial disease. In addition, one day he was noted to be more confused so stroke code was called. CT head was negative for intracranial bleeding. Troponins x3 were negative. We were unable to get MRI brain, neck over the weekend. However, his symptoms resolved shortly after the incident. PT evaluated the patient and recommended that he use his walker at home. He was discharged home on Augmentin , azithromycin and prednisone for 5 days. He was advised to follow-up with his PCP for referral to vascular surgery for his PAD. - Discharge Data Discharge Date: 10/16/19 Discharge Disposition: Home, Self-Care 01 Condition: Stable - Referral to Home Health Primary Care Physician: PCP None - Patient Summary/Data Consults: Consultations 10/16/19 08:30 Consult to Physical Therapy [PT Evaluation and Treatment] [CONS] Routine - Patient Instructions Diet: Diabetic Diet Activity: As Tolerated Notify Provider of: Fever, Increased Pain, Swelling and Redness, Nausea and/or Vomiting - Discharge Plan Prescriptions/Med Rec: Amoxicillin/Potassium Clav [Augmentin 875-125 Tablet] 1 each PO BID 5 Days #10 tablet Azithromycin 250 mg PO DAILY 5 Days #5 tablet predniSONE 20 mg PO DAILY #5 tab Home Medications: Home Meds Albuterol Sulfate [Albuterol Sulfate Hfa] 2 inh IH Q6H PRN 10/13/19 [History] Albuterol/Ipratropium [DuoNeb 3.0-0.5 MG/3 ML] 3 ml NEB Q6H 10/13/19 [History] Aspirin [Ecotrin EC] 81 mg PO DAILY 10/13/19 [History] Budesonide/Formoterol Fumarate [Symbicort 160-4.5 Mcg Inhaler] 2 inh IH Q12H [History] Citalopram [Citalopram HBr] 10 mg PO DAILY 10/13/19 [History] Clopidogrel [Plavix] 75 mg PO DAILY 10/13/19 [History] Diclofenac Sodium [Voltaren 1% Gel] 4 gm TOP QID PRN MDD total body dose 32gm max 10/13/19 [History] Gabapentin [Neurontin] 300 mg PO BID@12,18 10/13/19 [History] Gabapentin [Neurontin] 600 mg PO BID 10/13/19 [History] Hydrocodone/Acetaminophen [Elrosa 10-325 Tablet] 10 - 325 mg PO TID PRN 10/13/19 [History] Insulin Aspart [NovoLOG] 12 unit SUBCUT BID@08,12 10/13/19 [History] Insulin Aspart [NovoLOG] 15 unit SUBCUT WITHDINNER 10/13/19 [History] Insulin Glarg,Human.Rec.Analog [Lantus Solostar] 28 unit SUBCUT BID 10/13/19 [ History] Lidocaine 5% [Lidoderm 5%] 2 patch TD .ON 12 HR, OFF 12 HR 10/13/19 [History] Metoprolol Tartrate 50 mg PO BID 10/13/19 [History] [place]-3/DHA/Epa/Fish Oil [Fish Oil 1,000 mg Softgel] 1,000 mg PO BID 10/13/19 [ History] Pantoprazole [ProTONIX] 40 mg PO DAILY 10/13/19 [History] Polyethylene Glycol 3350 [MiraLAX] 17 gm PO DAILY 10/13/19 [History] Rosuvastatin Calcium [Crestor] 40 mg PO BEDTIME 10/13/19 [History] Spironolactone [Aldactone] 50 mg PO DAILY 10/13/19 [History] metFORMIN HCl [Metformin HCl ER] 750 mg PO WITHBREAKFAST 10/13/19 [History] Nitroglycerin 1 tab SL ASDIRECTED PRN MDD may take up to 3 within 15 min [History] Amoxicillin/Potassium Clav [Augmentin 875-125 Tablet] 1 each PO BID 5 Days #10 tablet 10/16/19 [Rx] Azithromycin 250 mg PO DAILY 5 Days #5 tablet 10/16/19 [Rx] predniSONE 20 mg PO DAILY #5 tab 10/16/19 [Rx] Patient Handouts: Amoxicillin; Clavulanic Acid tablets, Azithromycin tablets, Community-Acquired Pneumonia, Adult, [id number] Referrals: Maris Palmer PA [Physician Distribution Engineering Technologist] - 10/22/19 3:15 pm (If you would like to reschedule with Dr. Villarreal, call the clinic on Friday. ) - Discharge Summary/Plan Comment DC Time >30 min.: No - Patient Data Vitals - Most Recent: Last Vital Signs Temp 35.7 C 10/16/19 07:53 Pulse 97 10/16/19 09:16 Resp 17 10/16/19 07:53 BP 160/73 H 10/16/19 09:16 Pulse Ox 94 L 10/16/19 07:53 Weight - Most Recent: 108.908 kg I&O - Last 24 hours: Intake & Output 10/15/19 10/16/19 10/16/19 22:59 06:59 14:59 Intake Total 530 700 Output Total 1450 Balance 530 -750 Lab Results - Last 24 hrs: Laboratory Results - last 24 hr 10/15/19 10/15/19 10/15/19 Range/Units 11:53 13:26 14:15 WBC (4.0-11.0) K/uL RBC (4.50-5.90) M/uL Hgb (13.0-17.0) g/dL Hct (38.0-50.0) % MCV (80.0-98.0) fL MCH (27.0-32.0) pg MCHC (31.0-37.0) g/dL RDW Std Deviation (28.0-62.0) fl RDW Coeff of Rocco (11.0-15.0) % Plt Count (150-400) K/uL MPV (7.40-12.00) fL Neut % (Auto) (48.0-80.0) % Lymph % (Auto) (16.0-40.0) % [place] % (Auto) (0.0-15.0) % Eos % (Auto) (0.0-7.0) % Baso % (Auto) (0.0-1.5) % Neut # (Auto) (1.4-5.7) K/uL Lymph # (Auto) (0.6-2.4) K/uL [place] # (Auto) (0.0-0.8) K/uL Eos # (Auto) (0.0-0.7) K/uL Baso # (Auto) (0.0-0.1) K/uL Nucleated RBC % /100WBC Nucleated RBCs # K/uL Sodium (136-148) mmol/L Potassium (3.5-5.1) mmol/L Chloride (98-107) mmol/L Carbon Dioxide (21.0-32.0) mmol/L BUN (7.0-18.0) mg/dL Creatinine (0.8-1.3) mg/dL Est Cr Clr Drug Dosing mL/min Estimated GFR (MDRD) ml/min Glucose (74-106) mg/dL POC Glucose 281 H 307 H (60-110) mg/dL Calcium (8.5-10.1) mg/dL Total Bilirubin (0.2-1.0) mg/dL AST (15-37) IU/L ALT (14-63) IU/L Alkaline Phosphatase (46-116) U/L Troponin I < 0.050 (0.000-0.056) ng/mL Total Protein (6.4-8.2) g/dL Albumin (3.4-5.0) g/dL Globulin (2.6-4.0) g/dL Albumin/Globulin Ratio (0.9-1.6) 10/15/19 10/15/19 10/15/19 Range/Units 16:50 17:19 18:27 WBC (4.0-11.0) K/uL RBC (4.50-5.90) M/uL Hgb (13.0-17.0) g/dL Hct (38.0-50.0) % MCV (80.0-98.0) fL MCH (27.0-32.0) pg MCHC (31.0-37.0) g/dL RDW Std Deviation (28.0-62.0) fl RDW Coeff of Rocco (11.0-15.0) % Plt Count (150-400) K/uL MPV (7.40-12.00) fL Neut % (Auto) (48.0-80.0) % Lymph % (Auto) (16.0-40.0) % [place] % (Auto) (0.0-15.0) % Eos % (Auto) (0.0-7.0) % Baso % (Auto) (0.0-1.5) % Neut # (Auto) (1.4-5.7) K/uL Lymph # (Auto) (0.6-2.4) K/uL [place] # (Auto) (0.0-0.8) K/uL Eos # (Auto) (0.0-0.7) K/uL Baso # (Auto) (0.0-0.1) K/uL Nucleated RBC % /100WBC Nucleated RBCs # K/uL Sodium (136-148) mmol/L Potassium (3.5-5.1) mmol/L Chloride (98-107) mmol/L Carbon Dioxide (21.0-32.0) mmol/L BUN (7.0-18.0) mg/dL Creatinine (0.8-1.3) mg/dL Est Cr Clr Drug Dosing mL/min Estimated GFR (MDRD) ml/min Glucose (74-106) mg/dL POC Glucose 326 H 326 H (60-110) mg/dL Calcium (8.5-10.1) mg/dL Total Bilirubin (0.2-1.0) mg/dL AST (15-37) IU/L ALT (14-63) IU/L Alkaline Phosphatase (46-116) U/L Troponin I < 0.050 (0.000-0.056) ng/mL Total Protein (6.4-8.2) g/dL Albumin (3.4-5.0) g/dL Globulin (2.6-4.0) g/dL Albumin/Globulin Ratio (0.9-1.6) 10/15/19 10/15/19 10/16/19 Range/Units 20:00 20:53 05:45 WBC 10.86 (4.0-11.0) K/uL RBC 4.50 (4.50-5.90) M/uL Hgb 12.9 L (13.0-17.0) g/dL Hct 40.3 (38.0-50.0) % MCV 89.6 (80.0-98.0) fL MCH 28.7 (27.0-32.0) pg MCHC 32.0 (31.0-37.0) g/dL RDW Std Deviation 50.1 (28.0-62.0) fl RDW Coeff of Rocco 16 H (11.0-15.0) % Plt Count 274 (150-400) K/uL MPV 10.00 (7.40-12.00) fL Neut % (Auto) 82.4 H (48.0-80.0) % Lymph % (Auto) 12.4 L (16.0-40.0) % [place] % (Auto) 5.2 (0.0-15.0) % Eos % (Auto) 0.0 (0.0-7.0) % Baso % (Auto) 0.0 (0.0-1.5) % Neut # (Auto) 8.9 H (1.4-5.7) K/uL Lymph # (Auto) 1.4 (0.6-2.4) K/uL [place] # (Auto) 0.6 (0.0-0.8) K/uL Eos # (Auto) 0.0 (0.0-0.7) K/uL Baso # (Auto) 0.0 (0.0-0.1) K/uL Nucleated RBC % 0.0 /100WBC Nucleated RBCs # 0 K/uL Sodium (136-148) mmol/L Potassium (3.5-5.1) mmol/L Chloride (98-107) mmol/L Carbon Dioxide (21.0-32.0) mmol/L BUN (7.0-18.0) mg/dL Creatinine (0.8-1.3) mg/dL Est Cr Clr Drug Dosing mL/min Estimated GFR (MDRD) ml/min Glucose (74-106) mg/dL POC Glucose 385 H (60-110) mg/dL Calcium (8.5-10.1) mg/dL Total Bilirubin (0.2-1.0) mg/dL AST (15-37) IU/L ALT (14-63) IU/L Alkaline Phosphatase (46-116) U/L Troponin I < 0.050 (0.000-0.056) ng/mL Total Protein (6.4-8.2) g/dL Albumin (3.4-5.0) g/dL Globulin (2.6-4.0) g/dL Albumin/Globulin Ratio (0.9-1.6) 10/16/19 10/16/19 Range/Units 05:45 06:19 WBC (4.0-11.0) K/uL RBC (4.50-5.90) M/uL Hgb (13.0-17.0) g/dL Hct (38.0-50.0) % MCV (80.0-98.0) fL MCH (27.0-32.0) pg MCHC (31.0-37.0) g/dL RDW Std Deviation (28.0-62.0) fl RDW Coeff of Rocco (11.0-15.0) % Plt Count (150-400) K/uL MPV (7.40-12.00) fL Neut % (Auto) (48.0-80.0) % Lymph % (Auto) (16.0-40.0) % [place] % (Auto) (0.0-15.0) % Eos % (Auto) (0.0-7.0) % Baso % (Auto) (0.0-1.5) % Neut # (Auto) (1.4-5.7) K/uL Lymph # (Auto) (0.6-2.4) K/uL [place] # (Auto) (0.0-0.8) K/uL Eos # (Auto) (0.0-0.7) K/uL Baso # (Auto) (0.0-0.1) K/uL Nucleated RBC % /100WBC Nucleated RBCs # K/uL Sodium 138 (136-148) mmol/L Potassium 4.9 (3.5-5.1) mmol/L Chloride 100 (98-107) mmol/L Carbon Dioxide 32.8 H (21.0-32.0) mmol/L BUN 24 H (7.0-18.0) mg/dL Creatinine 1.0 (0.8-1.3) mg/dL Est Cr Clr Drug Dosing 63.02 mL/min Estimated GFR (MDRD) > 60.0 ml/min Glucose 329 H (74-106) mg/dL POC Glucose 323 H (60-110) mg/dL Calcium 8.9 (8.5-10.1) mg/dL Total Bilirubin 0.2 (0.2-1.0) mg/dL AST 15 (15-37) IU/L ALT 28 (14-63) IU/L Alkaline Phosphatase 78 (46-116) U/L Troponin I (0.000-0.056) ng/mL Total Protein 6.3 L (6.4-8.2) g/dL Albumin 3.1 L (3.4-5.0) g/dL Globulin 3.2 (2.6-4.0) g/dL Albumin/Globulin Ratio 1.0 (0.9-1.6) CHARLENE Results - Last 24 hrs: Microbiology 10/13/19 23:00 Gram Stain - Final Sputum - Expectorated Sputum Culture - Final Normal Respiratory Nadia YEAST 10/13/19 18:49 Aerobic Blood Culture - Preliminary Blood - Venous - Lab Draw NO GROWTH AFTER 2 DAYS Anaerobic Blood Culture - Preliminary NO GROWTH AFTER 2 DAYS 10/13/19 18:38 Aerobic Blood Culture - Preliminary Blood - Venous NO GROWTH AFTER 2 DAYS Anaerobic Blood Culture - Preliminary NO GROWTH AFTER 2 DAYS 10/13/19 23:00 Streptococcus pneumoniae Antigen (M - Final Urine 10/13/19 23:00 Legionella Urinary Antigen - Final Urine Med Orders - Current: Current Medications Acetaminophen (Tylenol) 650 mg PO Q4H PRN PRN Reason: Pain (Mild 1-3)/fever Last Admin: 10/13/19 21:22 Dose: 650 mg Hydrocodone Bitart/Acetaminophen ([place] 325-10 Mg) 1 tab PO Q6H PRN PRN Reason: Pain Last Admin: 10/16/19 07:45 Dose: 1 tab Albuterol/Ipratropium (Duoneb 3.0-0.5 Mg/3 Ml) 3 ml NEB Q8HRRT [facility] Last Admin: 10/16/19 06:14 Dose: 3 ml Aspirin (Halfprin) 81 mg PO DAILY [facility] Last Admin: 10/16/19 09:16 Dose: 81 mg Benzonatate (Tessalon Perles) 200 mg PO BID [facility] Last Admin: 10/16/19 09:15 Dose: 200 mg Bisacodyl (Dulcolax) 10 mg PO DAILY PRN PRN Reason: Constipation Citalopram Hydrobromide (Celexa) 10 mg PO DAILY [facility] Last Admin: 10/16/19 09:17 Dose: 10 mg Clopidogrel Bisulfate (Plavix) 75 mg PO DAILY [facility] Last Admin: 10/16/19 09:16 Dose: 75 mg Gabapentin (Neurontin) 300 mg PO BID@12,18 [facility] Last Admin: 10/15/19 17:44 Dose: 300 mg Gabapentin (Neurontin) 600 mg PO BID [facility] Last Admin: 10/16/19 09:16 Dose: 600 mg Guaifenesin/Codeine Phosphate (Robitussin Ac) 5 ml PO Q6H PRN PRN Reason: Cough Last Admin: 10/15/19 06:23 Dose: 5 ml Azithromycin 500 mg/ Sodium (Chloride) 250 mls @ 250 mls/hr IV DAILY [facility] Last Admin: 10/16/19 09:17 Dose: 250 mls/hr Ceftriaxone Sodium/Dextrose 1 (gm/ Premix) 50 mls @ 100 mls/hr IV Q24H [facility] Last Admin: 10/15/19 18:59 Dose: 100 mls/hr Insulin Aspart (Novolog) 0 unit SUBCUT TIDAC [facility]; Protocol Last Admin: 10/16/19 07:45 Dose: 12 units Insulin Aspart (Novolog) 5 unit SUBCUT TIDAC [facility] Last Admin: 10/16/19 07:45 Dose: 5 units Insulin Glargine (Lantus Solostar) 35 units SUBCUT BEDTIME [facility] Methylprednisolone Sodium Succinate (Solu-Medrol) 40 mg IVPUSH DAILY [facility] Last Admin: 10/16/19 09:17 Dose: 40 mg Metoprolol Tartrate (Lopressor) 50 mg PO BID [facility] Last Admin: 10/16/19 09:16 Dose: 50 mg Ondansetron HCl (Zofran Odt) 4 mg PO Q4H PRN PRN Reason: nausea, able to take PO Ondansetron HCl (Zofran) 4 mg IVPUSH Q4H PRN PRN Reason: Nausea Pantoprazole Sodium (Protonix) 40 mg PO DAILY [facility] Last Admin: 10/16/19 09:15 Dose: 40 mg Budesonide/Formoterol 160-4.5 Mcg/Puff 6 Gm Inhaler 0 each INH Q12H [facility] Last Admin: 10/15/19 23:38 Dose: Not Given Polyethylene Glycol (Miralax) 17 gm PO DAILY [facility] Last Admin: 10/16/19 09:17 Dose: 17 gm Polyethylene Glycol (Miralax) 17 gm PO TID PRN PRN Reason: Constipation Rosuvastatin Calcium (Crestor) 40 mg PO BEDTIME [facility] Last Admin: 10/15/19 21:24 Dose: 40 mg Sodium Chloride (Saline Flush) 10 ml FLUSH ASDIRECTED PRN PRN Reason: Keep Vein Open Sodium Chloride (Saline Flush) 2.5 ml FLUSH ASDIRECTED PRN PRN Reason: Keep Vein Open Spironolactone (Aldactone) 50 mg PO DAILY [facility] Last Admin: 10/16/19 09:16 Dose: 50 mg Discontinued Medications Albuterol/Ipratropium (Duoneb 3.0-0.5 Mg/3 Ml) 3 ml NEB ONETIME ONE Stop: 10/13/19 16:20 Last Admin: 10/13/19 16:26 Dose: 3 ml Albuterol/Ipratropium (Duoneb 3.0-0.5 Mg/3 Ml) 3 ml NEB Q4HRRT PRN PRN Reason: Shortness Of Breath/wheezing Last Admin: 10/14/19 10:10 Dose: 3 ml Albuterol/Ipratropium (Duoneb 3.0-0.5 Mg/3 Ml) 3 ml NEB Q4HRRT [facility] Last Admin: 10/15/19 18:09 Dose: 3 ml Aspirin (Ecotrin) 325 mg PO ONETIME ONE Stop: 10/15/19 09:52 Last Admin: 10/15/19 10:18 Dose: 325 mg Diphenhydramine HCl (Benadryl) 50 mg IVPUSH ONETIME ONE Stop: 10/15/19 18:01 Last Admin: 10/15/19 17:07 Dose: 50 mg Enoxaparin Sodium (Lovenox) 40 mg SUBCUT Q24H [facility] Last Admin: 10/14/19 17:56 Dose: 40 mg Enoxaparin Sodium (Lovenox) 110 mg SUBCUT Q12H [facility] Last Admin: 10/15/19 10:15 Dose: Not Given Furosemide (Lasix) 40 mg IVPUSH NOW ONE Stop: 10/13/19 18:15 Last Admin: 10/13/19 18:28 Dose: 40 mg Piperacillin Sod/Tazobactam (Sod 4.5 gm/ Sodium Chloride) 100 mls @ 100 mls/hr IV ONETIME ONE Stop: 10/13/19 19:13 Last Admin: 10/13/19 18:59 Dose: Not Given Sodium Chloride (Normal Saline) 1,000 mls @ 150 mls/hr IV STAT ONE Stop: 10/14/19 01:37 Last Admin: 10/13/19 19:06 Dose: 150 mls/hr Influenza Virus Vaccine (Pharmacy To Dose - Influenza Vaccine) 1 each IM ONETIME ONE Stop: 10/15/19 10:01 Influenza Virus Vaccine (Fluzone High-Dose Syringe) 180 mcg IM .ONCE ONE Stop: 10/13/19 22:01 Insulin Aspart (Novolog) 0 unit SUBCUT TIDAC [facility]; Protocol Insulin Aspart (Novolog) 0 unit SUBCUT TIDAC [facility]; Protocol Insulin Glargine (Lantus Solostar) 28 units SUBCUT BEDTIME [facility] Last Admin: 10/13/19 23:04 Dose: 28 units Insulin Glargine (Lantus Solostar) 30 units SUBCUT BEDTIME [facility] Last Admin: 10/14/19 22:08 Dose: 30 units Insulin Glargine (Lantus Solostar) 32 units SUBCUT BEDTIME [facility] Last Admin: 10/15/19 21:28 Dose: 32 units Iopamidol (Isovue Multipack-370 (76%)) 120 ml IVPUSH ONETIME STA Stop: 10/15/19 19:01 Last Admin: 10/15/19 19:01 Dose: 120 ml Methylprednisolone Sodium Succinate (Solu-Medrol) 125 mg IVPUSH ONETIME ONE Stop: 10/13/19 16:20 Last Admin: 10/13/19 16:26 Dose: 125 mg Methylprednisolone Sodium Succinate (Solu-Medrol) 40 mg IVPUSH Q4H [facility] Stop: 10/15/19 18:01 Last Admin: 10/15/19 17:44 Dose: 40 mg Morphine Sulfate (Morphine) 2 mg IVPUSH Q2H PRN PRN Reason: Pain (severe 7-10) Stop: 10/14/19 18:44 Last Admin: 10/13/19 23:37 Dose: 2 mg <Carmen Tineo - Last Filed: 10/18/19 19:31> Discharge Summary - Hospital Course HPI Initial Comments: I have seen and evaluated the patient and agree with the residents note unless specified in my note - Referral to Home Health Primary Care Physician: PCP None - Patient Summary/Data Consults: Consultations 10/16/19 08:30 Consult to Physical Therapy [PT Evaluation and Treatment] [CONS] Routine - Patient Data Vitals - Most Recent: Last Vital Signs Temp 35.7 C 10/16/19 07:53 Pulse 97 10/16/19 09:16 Resp 17 10/16/19 07:53 BP 160/73 H 10/16/19 09:16 Pulse Ox 94 L 10/16/19 07:53 CHARLENE Results - Last 24 hrs: Microbiology 10/13/19 18:49 Aerobic Blood Culture - Final Blood - Venous - Lab Draw NO GROWTH AFTER 5 DAYS Anaerobic Blood Culture - Final NO GROWTH AFTER 5 DAYS 10/13/19 18:38 Aerobic Blood Culture - Final Blood - Venous NO GROWTH AFTER 5 DAYS Anaerobic Blood Culture - Final NO GROWTH AFTER 5 DAYS Med Orders - Current: Current Medications Discontinued Medications Acetaminophen (Tylenol) 650 mg PO Q4H PRN PRN Reason: Pain (Mild 1-3)/fever Last Admin: 10/13/19 21:22 Dose: 650 mg Hydrocodone Bitart/Acetaminophen ([place] 325-10 Mg) 1 tab PO Q6H PRN PRN Reason: Pain Last Admin: 10/16/19 07:45 Dose: 1 tab Albuterol/Ipratropium (Duoneb 3.0-0.5 Mg/3 Ml) 3 ml NEB ONETIME ONE Stop: 10/13/19 16:20 Last Admin: 10/13/19 16:26 Dose: 3 ml Albuterol/Ipratropium (Duoneb 3.0-0.5 Mg/3 Ml) 3 ml NEB Q4HRRT PRN PRN Reason: Shortness Of Breath/wheezing Last Admin: 10/14/19 10:10 Dose: 3 ml Albuterol/Ipratropium (Duoneb 3.0-0.5 Mg/3 Ml) 3 ml NEB Q4HRRT [facility] Last Admin: 10/15/19 18:09 Dose: 3 ml Albuterol/Ipratropium (Duoneb 3.0-0.5 Mg/3 Ml) 3 ml NEB Q8HRRT [facility] Last Admin: 10/16/19 06:14 Dose: 3 ml Aspirin (Halfprin) 81 mg PO DAILY [facility] Last Admin: 10/16/19 09:16 Dose: 81 mg Aspirin (Ecotrin) 325 mg PO ONETIME ONE Stop: 10/15/19 09:52 Last Admin: 10/15/19 10:18 Dose: 325 mg Benzonatate (Tessalon Perles) 200 mg PO BID [facility] Last Admin: 10/16/19 09:15 Dose: 200 mg Bisacodyl (Dulcolax) 10 mg PO DAILY PRN PRN Reason: Constipation Citalopram Hydrobromide (Celexa) 10 mg PO DAILY [facility] Last Admin: 10/16/19 09:17 Dose: 10 mg Clopidogrel Bisulfate (Plavix) 75 mg PO DAILY [facility] Last Admin: 10/16/19 09:16 Dose: 75 mg Diphenhydramine HCl (Benadryl) 50 mg IVPUSH ONETIME ONE Stop: 10/15/19 18:01 Last Admin: 10/15/19 17:07 Dose: 50 mg Enoxaparin Sodium (Lovenox) 40 mg SUBCUT Q24H [facility] Last Admin: 10/14/19 17:56 Dose: 40 mg Enoxaparin Sodium (Lovenox) 110 mg SUBCUT Q12H [facility] Last Admin: 10/15/19 10:15 Dose: Not Given Furosemide (Lasix) 40 mg IVPUSH NOW ONE Stop: 10/13/19 18:15 Last Admin: 10/13/19 18:28 Dose: 40 mg Gabapentin (Neurontin) 300 mg PO BID@12,18 [facility] Last Admin: 10/16/19 12:33 Dose: 300 mg Gabapentin (Neurontin) 600 mg PO BID [facility] Last Admin: 10/16/19 09:16 Dose: 600 mg Guaifenesin/Codeine Phosphate (Robitussin Ac) 5 ml PO Q6H PRN PRN Reason: Cough Last Admin: 10/15/19 06:23 Dose: 5 ml Piperacillin Sod/Tazobactam (Sod 4.5 gm/ Sodium Chloride) 100 mls @ 100 mls/hr IV ONETIME ONE Stop: 10/13/19 19:13 Last Admin: 10/13/19 18:59 Dose: Not Given Azithromycin 500 mg/ Sodium (Chloride) 250 mls @ 250 mls/hr IV DAILY [facility] Last Admin: 10/16/19 09:17 Dose: 250 mls/hr Ceftriaxone Sodium/Dextrose 1 (gm/ Premix) 50 mls @ 100 mls/hr IV Q24H [facility] Last Admin: 10/15/19 18:59 Dose: 100 mls/hr Sodium Chloride (Normal Saline) 1,000 mls @ 150 mls/hr IV STAT ONE Stop: 10/14/19 01:37 Last Admin: 10/13/19 19:06 Dose: 150 mls/hr Influenza Virus Vaccine (Pharmacy To Dose - Influenza Vaccine) 1 each IM ONETIME ONE Stop: 10/15/19 10:01 Influenza Virus Vaccine (Fluzone High-Dose 2018- Syringe) 180 mcg IM .ONCE ONE Stop: 10/13/19 22:01 Influenza Virus Vaccine (Fluzone High-Dose 2018- Syringe) 180 mcg IM .ONCE ONE Stop: 10/16/19 13:46 Last Admin: 10/16/19 13:40 Dose: 180 mcg Insulin Aspart (Novolog) 0 unit SUBCUT TIDAC [facility]; Protocol Insulin Aspart (Novolog) 0 unit SUBCUT TIDAC [facility]; Protocol Insulin Aspart (Novolog) 0 unit SUBCUT TIDAC MAGEN; Protocol Last Admin: 10/16/19 12:34 Dose: 12 units Insulin Aspart (Novolog) 5 unit SUBCUT TIDAC MAGEN Last Admin: 10/16/19 12:35 Dose: 5 units Insulin Glargine (Lantus Solostar) 28 units SUBCUT BEDTIME MAGEN Last Admin: 10/13/19 23:04 Dose: 28 units Insulin Glargine (Lantus Solostar) 30 units SUBCUT BEDTIME MAGEN Last Admin: 10/14/19 22:08 Dose: 30 units Insulin Glargine (Lantus Solostar) 32 units SUBCUT BEDTIME MAGEN Last Admin: 10/15/19 21:28 Dose: 32 units Insulin Glargine (Lantus Solostar) 35 units SUBCUT BEDTIME MAGEN Iopamidol (Isovue Multipack-370 (76%)) 120 ml IVPUSH ONETIME STA Stop: 10/15/19 19:01 Last Admin: 10/15/19 19:01 Dose: 120 ml Methylprednisolone Sodium Succinate (Solu-Medrol) 125 mg IVPUSH ONETIME ONE Stop: 10/13/19 16:20 Last Admin: 10/13/19 16:26 Dose: 125 mg Methylprednisolone Sodium Succinate (Solu-Medrol) 40 mg IVPUSH DAILY [facility] Last Admin: 10/16/19 09:17 Dose: 40 mg Methylprednisolone Sodium Succinate (Solu-Medrol) 40 mg IVPUSH Q4H [facility] Stop: 10/15/19 18:01 Last Admin: 10/15/19 17:44 Dose: 40 mg Metoprolol Tartrate (Lopressor) 50 mg PO BID [facility] Last Admin: 10/16/19 09:16 Dose: 50 mg Morphine Sulfate (Morphine) 2 mg IVPUSH Q2H PRN PRN Reason: Pain (severe 7-10) Stop: 10/14/19 18:44 Last Admin: 10/13/19 23:37 Dose: 2 mg Nitroglycerin (Nitrostat) 0.4 mg SL Q5M PRN PRN Reason: Chest Pain Ondansetron HCl (Zofran Odt) 4 mg PO Q4H PRN PRN Reason: nausea, able to take PO Ondansetron HCl (Zofran) 4 mg IVPUSH Q4H PRN PRN Reason: Nausea Pantoprazole Sodium (Protonix) 40 mg PO DAILY [facility] Last Admin: 10/16/19 09:15 Dose: 40 mg Budesonide/Formoterol 160-4.5 Mcg/Puff 6 Gm Inhaler 0 each INH Q12H [facility] Last Admin: 10/16/19 12:38 Dose: Not Given Polyethylene Glycol (Miralax) 17 gm PO DAILY [facility] Last Admin: 10/16/19 09:17 Dose: 17 gm Polyethylene Glycol (Miralax) 17 gm PO TID PRN PRN Reason: Constipation Rosuvastatin Calcium (Crestor) 40 mg PO BEDTIME [facility] Last Admin: 10/15/19 21:24 Dose: 40 mg Sodium Chloride (Saline Flush) 10 ml FLUSH ASDIRECTED PRN PRN Reason: Keep Vein Open Sodium Chloride (Saline Flush) 2.5 ml FLUSH ASDIRECTED PRN PRN Reason: Keep Vein Open Spironolactone (Aldactone) 50 mg PO DAILY [facility] Last Admin: 10/16/19 09:16 Dose: 50 mg
[2019-10-16] MEDS ORDERED: Nitroglycerin 0.4 MG Tab.SL SL PRN (12:06)
[2019-10-16] MEDS: Budesonide/Formoterol 160-4.5 MCG/Puff 6 GM Inhaler INH SCH (12:38)
[2019-10-16] MEDS ORDERED: Insulin Glargine,Human Rec. Analog 100 Units/ML 3 ML Pen SUBCUT SCH (21:00)
--- NOTE | 2019-10-18 13:58 | ECHO ---
The echocardiogram report can be seen in this patient's EMR (Electronic Medical Record) in the REPORTS section. The echocardiogram report has also been scanned into PACS and can be seen there as well. RADHA
--- NOTE | 2019-10-19 10:38 | ECHO ---
EXAM DATE: 10/13/19 PATIENT'S AGE: 79 The echocardiogram report can be seen in this patient's EMR (Electronic Medical Record) in the Reports section. The report has also been scanned into PACs. RADHA
== END 2019-10-16 13:50 | disposition home or self-care (01) | DRG 871 ==
LOC: MW.ED 15:43 → MW.MS 18:37
PROVIDERS: ADMIT Student in an Organized Health Care Education/Training Program; ATTEND Student in an Organized Health Care Education/Training Program
DX: A41.9 Sepsis, unspecified organism (principal); I50.9 Heart failure, unspecified; J18.9 Pneumonia, unspecified organism; J44.0 Chronic obstructive pulmonary disease with (acute) lower respiratory infection; J44.1 Chronic obstructive pulmonary disease with (acute) exacerbation; G89.29 Other chronic pain; E11.9 Type 2 diabetes mellitus without complications; I10 Essential (primary) hypertension; I73.9 Peripheral vascular disease, unspecified; F41.9 Anxiety disorder, unspecified; F32.9 Major depressive disorder, single episode, unspecified; I77.1 Stricture of artery; E87.70 Fluid overload, unspecified; R53.1 Weakness; R06.02 Shortness of breath; R05 Cough; I25.10 Atherosclerotic heart disease of native coronary artery without angina pectoris; Z79.899 Other long term (current) drug therapy; Z79.4 Long term (current) use of insulin; Z79.82 Long term (current) use of aspirin; Z88.8 Allergy status to other drugs, medicaments and biological substances; Z91.041 Radiographic dye allergy status; Z95.5 Presence of coronary angioplasty implant and graft; Z23 Encounter for immunization
CPT/HCPCS: 36415; 71045; 80053; 82962; 83605; 83880; 84484; 85025; 85610; 93005; 94640; 96375; 99285; J1940; J2930; 70450; 70450-26; 737062650; 73706-50; 80061; 81003; 83036; 87040; 87070; 87205; 87804; 87899; 90662; 93306; 93307; 93925; 93925-26; 93971-26-RT; 93971-RT; 96365; 96372; 97161-GP; 99283; A9270-GY; J0456; J0696; J1200; J1650; J1815-GY; J2270; J2920; J7030; J7050; J7620-GY; Q9967

== ENCOUNTER 2019-12-30 11:27 | Inpatient (IN) | payer OTHER, MEDICARE ==
[2019-12-30] MEDS ORDERED: methylPREDNISolone Sodium Succinate 125 MG/2 ML SDV IVPUSH ONE (11:31)
[2019-12-30] MEDS ORDERED: Albuterol/Ipratropium 3.0-0.5 MG/3 ML Neb Soln NEB ONE (11:31)
--- NOTE | 2019-12-30 11:32 | EDM.PDOC ---
ED HPI GENERAL MEDICAL PROBLEM - General Stated Complaint: PNEUMONIA Time Seen by Provider: 12/30/19 11:32 Source of Information: Reports: Patient - History of Present Illness INITIAL COMMENTS - FREE TEXT/NARRATIVE: HISTORY AND PHYSICAL: History of present illness: [[place] with [place], he has had several admissions between October and now for pneumonia he complains of shortness of breath he has home oxygen dependent generally 2 L he was on 4-5 for transfer over here however with DuoNeb and Solu-Medrol currently back to 3 L and we will likely be able to get him back on his home oxygen however he does have significant pneumonia on chest x-ray ] Review of systems: As per history of present illness and below otherwise all systems reviewed and negative. Past medical history: As per history of present illness and as reviewed below otherwise noncontributory. Surgical history: As per history of present illness and as reviewed below otherwise noncontributory. Social history: No reported history of drug or alcohol abuse. Family history: As per history of present illness and as reviewed below otherwise noncontributory. Physical exam: HEENT: Atraumatic, normocephalic, pupils reactive, negative for conjunctival pallor or scleral icterus, mucous membranes moist, throat clear, neck supple, nontender, trachea midline. Lungs: Clear to auscultation, breath sounds equal bilaterally, chest nontender. Heart: S1S2, regular, negative for clicks, rubs, or JVD. Abdomen: Soft, nondistended, nontender. Negative for masses or hepatosplenomegaly. Negative for costovertebral tenderness. Pelvis: Stable nontender. Genitourinary: Deferred. Rectal: Deferred. Extremities: Atraumatic, negative for cords or calf pain. Neurovascular unremarkable. Neuro: Awake, alert, oriented. Cranial nerves II through XII unremarkable. Cerebellum unremarkable. Motor and sensory unremarkable throughout. Exam nonfocal. Diagnostics: [BC CMP UA troponin blood cultures x2 Chest 1 view EKG ] Therapeutics: [Saline Vancomycin Zosyn DuoNeb Solu-Medrol ] Impression: [Bilateral pneumonia Chronic history baseline] Definitive disposition and diagnosis as appropriate pending reevaluation and review of above. hands Pain Score (Numeric/FACES): 4 - Related Data Allergies Allergy/AdvReac Type Severity Reaction Status Date / Time atorvastatin Allergy Other Verified 12/30/19 11:40 bupropion [From Wellbutrin] Allergy Other Verified 12/30/19 11:40 duloxetine HCl Allergy Rash Verified 12/30/19 11:40 [From Cymbalta] Iodinated Contrast Media Allergy Other Verified 12/30/19 11:40 meloxicam Allergy Other Verified 12/30/19 11:40 metformin Allergy Other Verified 12/30/19 11:40 naproxen Allergy Other Verified 12/30/19 11:40 paroxetine Allergy Other Verified 12/30/19 11:40 sertraline HCl [From Zoloft] Allergy Rash Verified 12/30/19 11:40 venlafaxine [From Effexor] Allergy oth Verified 12/30/19 11:40 Home Meds: Home Meds Albuterol Sulfate [Albuterol Sulfate Hfa] 2 inh IH Q6H PRN 10/13/19 [History] Albuterol/Ipratropium [DuoNeb 3.0-0.5 MG/3 ML] 3 ml NEB Q6H 10/13/19 [History] Aspirin [Ecotrin EC] 81 mg PO DAILY 10/13/19 [History] Budesonide/Formoterol Fumarate [Symbicort 160-4.5 Mcg Inhaler] 2 inh IH Q12H [History] Citalopram [Citalopram HBr] 10 mg PO DAILY 10/13/19 [History] Clopidogrel [Plavix] 75 mg PO DAILY 10/13/19 [History] Diclofenac Sodium [Voltaren 1% Gel] 4 gm TOP QID PRN MDD total body dose 32gm max 10/13/19 [History] Hydrocodone/Acetaminophen [[place] 10-325 Tablet] 10 - 325 mg PO TID PRN 10/13/19 [History] Insulin Aspart [NovoLOG] 12 unit SUBCUT BID@08,12 10/13/19 [History] Insulin Aspart [NovoLOG] 15 unit SUBCUT WITHDINNER 10/13/19 [History] Insulin Glarg,Human.Rec.Analog [Lantus Solostar] 28 unit SUBCUT BID 10/13/19 [ History] Lidocaine 5% [Lidoderm 5%] 2 patch TD .ON 12 HR, OFF 12 HR 10/13/19 [History] Metoprolol Tartrate 50 mg PO BID 10/13/19 [History] [place]-3/DHA/Epa/Fish Oil [Fish Oil 1,000 mg Softgel] 1,000 mg PO BID 10/13/19 [ History] Pantoprazole [ProTONIX] 40 mg PO DAILY 10/13/19 [History] Rosuvastatin Calcium [Crestor] 40 mg PO BEDTIME 10/13/19 [History] Spironolactone [Aldactone] 50 mg PO DAILY 10/13/19 [History] metFORMIN HCl [Metformin HCl ER] 750 mg PO BID 10/13/19 [History] polyethylene glycoL 3350 [MiraLAX] 17 gm PO DAILY 10/13/19 [History] Albuterol [Proventil Neb Soln] 2.5 mg INH QID 12/30/19 [History] Amitriptyline [Elavil] 25 mg PO BEDTIME 12/30/19 [History] Celecoxib 100 mg PO DAILY 12/30/19 [History] Furosemide 40 mg PO DAILY 12/30/19 [History] Gabapentin [Neurontin] 300 mg PO BID@12,18 12/30/19 [History] Gabapentin [Neurontin] 600 mg PO BID@08,21 12/30/19 [History] Loratadine 10 mg PO DAILY 12/30/19 [History] Methocarbamol [Robaxin-750] 750 mg PO BEDTIME 12/30/19 [History] Tiotropium [Spiriva] 18 mcg INH DAILY 12/30/19 [History] hydrOXYzine HCL [Atarax] 25 mg PO QID PRN 12/30/19 [History] Past Medical History HEENT History: Reports: None Other HEENT History: glasses and hearing aides Cardiovascular History: Reports: Stents Respiratory History: Reports: Asthma, COPD Other Respiratory History: states may need cpap but does not have one. Gastrointestinal History: Reports: Diverticulosis Genitourinary History: Reports: None Musculoskeletal History: Reports: None Neurological History: Reports: None Psychiatric History: Reports: Anxiety, Depression, Panic Attack Endocrine/Metabolic History: Reports: Diabetes, Type II Hematologic History: Reports: None Immunologic History: Reports: None Oncologic (Cancer) History: Reports: None Dermatologic History: Reports: None - Infectious Disease History Infectious Disease History: Reports: None - Past Surgical History Head Surgeries/Procedures: Reports: None Other Cardiovascular Surgeries/Procedures: 2004 2017 GI Surgical History: Reports: Colonoscopy Male Surgical History: Reports: None Social & Family History - Family History Family Medical History: Noncontributory - Caffeine Use Caffeine Use: Reports: None ED ROS GENERAL - Review of Systems Review Of Systems: See Below ED EXAM, GENERAL - Physical Exam Exam: See Below Course - Vital Signs Last Recorded V/S: Last Vital Signs Temp 96.2 F 12/30/19 11:37 Pulse 78 12/30/19 13:15 Resp 22 H 12/30/19 13:15 BP 127/53 L 12/30/19 13:15 Pulse Ox 95 12/30/19 13:15 - Orders/Labs/Meds Orders: Active Orders 24 hr Category Date Time Status EKG Documentation Completion [RC] STAT Care 12/30/19 11:36 Active RT Aerosol Therapy [RC] ASDIRECTED Care 12/30/19 11:31 Active Chest 1V Frontal [CR] Stat Exams 12/30/19 11:36 Taken CULTURE BLOOD [BC] Stat Lab 12/30/19 12:26 Results CULTURE BLOOD [BC] Stat Lab 12/30/19 12:35 Received UA RFX CHARLENE AND CULT IF INDIC [URIN] Stat Lab 12/30/19 11:31 Ordered Sodium Chloride 0.9% [Normal Saline] 1,000 ml Med 12/30/19 11:45 Active IV STAT Vancomycin 1 gm Med 12/30/19 12:34 Active Sodium Chloride 0.9% [Normal Saline (AdvBag)] 250 ml IV ONETIME Blood Culture x2 Reflex Set [OM.PC] Stat Oth 12/30/19 11:31 Ordered Medication Orders Sodium Chloride (Normal Saline) 1,000 mls @ 125 mls/hr IV STAT MAGEN Last Admin: 12/30/19 12:26 Dose: 125 mls/hr Vancomycin HCl 1 gm/ Sodium (Chloride) 250 mls @ 166 mls/hr IV ONETIME ONE Stop: 12/30/19 14:04 Labs: Laboratory Tests 12/30/19 12/30/19 12/30/19 Range/Units 12:00 12:35 12:35 WBC 14.45 H (4.0-11.0) K/uL RBC 4.83 (4.50-5.90) M/uL Hgb 14.4 (13.0-17.0) g/dL Hct 44.0 (38.0-50.0) % MCV 91.1 (80.0-98.0) fL MCH 29.8 (27.0-32.0) pg MCHC 32.7 (31.0-37.0) g/dL RDW Std Deviation 50.0 (28.0-62.0) fl RDW Coeff of Rocco 15 (11.0-15.0) % Plt Count 250 (150-400) K/uL MPV 10.60 (7.40-12.00) fL Neut % (Auto) 71.4 (48.0-80.0) % Lymph % (Auto) 20.0 (16.0-40.0) % [place] % (Auto) 7.8 (0.0-15.0) % Eos % (Auto) 0.7 (0.0-7.0) % Baso % (Auto) 0.1 (0.0-1.5) % Neut # (Auto) 10.3 H (1.4-5.7) K/uL Lymph # (Auto) 2.9 H (0.6-2.4) K/uL [place] # (Auto) 1.1 H (0.0-0.8) K/uL Eos # (Auto) 0.1 (0.0-0.7) K/uL Baso # (Auto) 0.0 (0.0-0.1) K/uL Nucleated RBC % 0.0 /100WBC Nucleated RBCs # 0 K/uL INR 1.01 Sodium 139 (136-148) mmol/L Potassium 4.7 (3.5-5.1) mmol/L Chloride 100 (98-107) mmol/L Carbon Dioxide 30.9 (21.0-32.0) mmol/L BUN 28 H (7.0-18.0) mg/dL Creatinine 1.1 (0.8-1.3) mg/dL Est Cr Clr Drug Dosing 57.15 mL/min Estimated GFR (MDRD) > 60.0 ml/min Glucose 178 H (74-106) mg/dL Calcium 9.5 (8.5-10.1) mg/dL Total Bilirubin 0.5 (0.2-1.0) mg/dL AST 21 (15-37) IU/L ALT 30 (14-63) IU/L Alkaline Phosphatase 91 (46-116) U/L Troponin I < 0.050 (0.000-0.056) ng/mL Total Protein 8.2 (6.4-8.2) g/dL Albumin 3.4 (3.4-5.0) g/dL Globulin 4.8 H (2.6-4.0) g/dL Albumin/Globulin Ratio 0.7 L (0.9-1.6) Meds: Medications Generic Name Dose Route Start Last Admin Trade Name Freq PRN Reason Stop Dose Admin Sodium Chloride 1,000 mls @ 125 mls/hr 12/30/19 11:45 12/30/19 12:26 Normal Saline IV 125 mls/hr STAT MAGEN Administration Vancomycin HCl 1 gm/ Sodium 250 mls @ 166 mls/hr 12/30/19 12:34 Chloride IV 12/30/19 14:04 ONETIME ONE Discontinued Medications Generic Name Dose Route Start Last Admin Trade Name Freq PRN Reason Stop Dose Admin Albuterol/Ipratropium 3 ml 12/30/19 11:31 12/30/19 12:05 Duoneb 3.0-0.5 Mg/3 Ml NEB 12/30/19 11:32 3 ml ONETIME ONE Administration Piperacillin Sod/Tazobactam 50 mls @ 100 mls/hr 12/30/19 12:34 12/30/19 13:15 Sod 3.375 gm/ Sodium Chloride IV 12/30/19 13:03 100 mls/hr ONETIME ONE Administration Methylprednisolone Sodium Succinate 125 mg 12/30/19 11:31 12/30/19 12:27 Solu-Medrol IVPUSH 12/30/19 11:32 125 mg ONETIME ONE Administration Departure - Departure Time of Disposition: 13:31 Disposition: Admitted As Inpatient 67 Condition: Poor Clinical Impression: Pneumonia Qualifiers: Pneumonia type: due to unspecified organism - Discharge Information Sepsis Event Note - Focused Exam Vital Signs: Vital Signs Temp Pulse Resp BP Pulse Ox 12/30/19 13:15 78 22 H 127/53 L 95 12/30/19 12:40 80 22 H 118/61 95 12/30/19 12:28 82 18 141/97 H 95 12/30/19 11:37 96.2 F 79 16 142/77 H 97 Date Exam was Performed: 12/30/19 Time Exam was Performed: 13:30 - My Orders Last 24 Hours: My Active Orders 12/30/19 11:31 RT Aerosol Therapy [RC] ASDIRECTED UA RFX CHARLENE AND CULT IF INDIC [URIN] Stat Blood Culture x2 Reflex Set [OM.PC] Stat 12/30/19 11:36 EKG Documentation Completion [RC] STAT Chest 1V Frontal [CR] Stat 12/30/19 11:45 Sodium Chloride 0.9% [Normal Saline] 1,000 ml IV STAT 12/30/19 12:26 CULTURE BLOOD [BC] Stat 12/30/19 12:34 Vancomycin 1 gm Sodium Chloride 0.9% [Normal Saline (AdvBag)] 250 ml IV ONETIME 12/30/19 12:35 CULTURE BLOOD [BC] Stat - Assessment/Plan Last 24 Hours: My Active Orders 12/30/19 11:31 RT Aerosol Therapy [RC] ASDIRECTED UA RFX CHARLENE AND CULT IF INDIC [URIN] Stat Blood Culture x2 Reflex Set [OM.PC] Stat 12/30/19 11:36 EKG Documentation Completion [RC] STAT Chest 1V Frontal [CR] Stat 12/30/19 11:45 Sodium Chloride 0.9% [Normal Saline] 1,000 ml IV STAT 12/30/19 12:26 CULTURE BLOOD [BC] Stat 12/30/19 12:34 Vancomycin 1 gm Sodium Chloride 0.9% [Normal Saline (AdvBag)] 250 ml IV ONETIME 12/30/19 12:35 CULTURE BLOOD [BC] Stat
[2019-12-30] MEDS ORDERED: Sodium Chloride 0.9% 1,000 ML IV SCH (11:45)
[2019-12-30] MEDS ORDERED: Piperacillin/Tazobactam 3.375 GM in Sodium Chloride 0.9% 50 ML IV ONE (12:34)
[2019-12-30 13:21] LABS: BLOOD UREA NITROGEN,BUN 28 mg/dL (7.0-18.0); CARBON DIOXIDE,CO2 30.9 mmol/L (21.0-32.0); CHLORIDE,CL 100 mmol/L (98-107); GLUCOSE RANDOM 178 mg/dL (74-106); POTASSIUM,K 4.7 mmol/L (3.5-5.1); SODIUM,NA 139 mmol/L (136-148)
--- NOTE | 2019-12-30 13:59 | CR ---
Chest: AP view of the chest was obtained. Comparison: Previous chest x-ray of 10/13/19. Diffuse increased density within the left lung base and left midlung is seen. Increased density also noted within the right lung base. Nodular densities are also seen within the right lung. All these findings appear to be fairly stable from previous chest x-ray. No definite acute finding is seen. Heart size is stable. Tortuous thoracic aorta noted. Bony structures are grossly intact. Impression: 1. Multiple findings. No significant change from previous exam is seen. Diagnostic code #3 This report was dictated in [place] Standard Time
[2019-12-30] MEDS: Acetaminophen/HYDROcodone 325-10 MG Tab PO PRN (16:06)
[2019-12-30] MEDS ORDERED: Albuterol/Ipratropium 3.0-0.5 MG/3 ML Neb Soln NEB PRN (17:52)
[2019-12-30] MEDS ORDERED: Heparin Sodium 5,000 Units/ML Vial IVPUSH SCH (18:00)
--- NOTE | 2019-12-30 18:05 | PCM.HP.2 ---
<Brea Carson - Last Filed: 12/30/19 17:59> H&P History of Present Illness - General Date of Service: 12/30/19 Admit Problem/Dx: Admission Diagnosis/Problem Admission Diagnosis/Problem Pneumonia - History of Present Illness Initial Comments - Free Text/Narative: The patient is a 79 year old male with PMH of oxygen dependent COPD, CAD with stents, CHF DMII, HTN, hyperlipidemia, and chronic pain who presented to the ER with worsening SOB. Was seen for regular check up at [facility], they found bilateral pneumonia and transferred him to the ER. During transfer he required 4-5 L of oxygen, home requirement is 2.5. Patient reports several day history of worsening shortness of breath with productive cough, and sweating/chills. Denies chest pain, abdominal pain, nausea/vomiting, diarrhea, or trouble urinating. Was admitted in October 2019 for CAP treated with ceftriaxone and Azithromycin, felt better after discharge. In the ER, work up revealed leukocytosis of 14.5, no anemia, electrolytes wnl, negative troponin, negative flu, no signs of infection on UA. CXR showed diffuse density of left mid/base lung as well as right base. In the ER he was given Zosyn, Vanco, duonebs, solumedrol and IVF. In the ER, his oxygen was weaned to three but the time he was situated on the floor he was down to 2.5. hands Pain Score (Numeric/FACES): 4 - Related Data Allergies/Adverse Reactions: Allergies Allergy/AdvReac Type Severity Reaction Status Date / Time atorvastatin Allergy Other Verified 12/30/19 16:35 bupropion [From Wellbutrin] Allergy Other Verified 12/30/19 16:35 duloxetine HCl Allergy Rash Verified 12/30/19 16:35 [From Cymbalta] Iodinated Contrast Media Allergy Other Verified 12/30/19 16:35 meloxicam Allergy Other Verified 12/30/19 16:35 metformin Allergy Other Verified 12/30/19 16:35 naproxen Allergy Other Verified 12/30/19 16:35 paroxetine Allergy Other Verified 12/30/19 16:35 sertraline HCl [From Zoloft] Allergy Rash Verified 12/30/19 16:35 venlafaxine [From Effexor] Allergy oth Verified 12/30/19 16:35 Home Medications: Home Meds Albuterol Sulfate [Albuterol Sulfate Hfa] 2 inh IH Q6H PRN 10/13/19 [History] Albuterol/Ipratropium [DuoNeb 3.0-0.5 MG/3 ML] 3 ml NEB Q6H 10/13/19 [History] Aspirin [Ecotrin EC] 81 mg PO DAILY 10/13/19 [History] Budesonide/Formoterol Fumarate [Symbicort 160-4.5 Mcg Inhaler] 2 inh IH Q12H [History] Citalopram [Citalopram HBr] 10 mg PO DAILY 10/13/19 [History] Clopidogrel [Plavix] 75 mg PO DAILY 10/13/19 [History] Diclofenac Sodium [Voltaren 1% Gel] 4 gm TOP QID PRN MDD total body dose 32gm max 10/13/19 [History] Hydrocodone/Acetaminophen [[place] 10-325 Tablet] 10 - 325 mg PO TID PRN 10/13/19 [History] Insulin Aspart [NovoLOG] 12 unit SUBCUT BID@08,12 10/13/19 [History] Insulin Aspart [NovoLOG] 15 unit SUBCUT WITHDINNER 10/13/19 [History] Insulin Glarg,Human.Rec.Analog [Lantus Solostar] 28 unit SUBCUT BID 10/13/19 [ History] Lidocaine 5% [Lidoderm 5%] 2 patch TD .ON 12 HR, OFF 12 HR 10/13/19 [History] Metoprolol Tartrate 50 mg PO BID 10/13/19 [History] [place]-3/DHA/Epa/Fish Oil [Fish Oil 1,000 mg Softgel] 1,000 mg PO BID 10/13/19 [ History] Pantoprazole [ProTONIX] 40 mg PO DAILY 10/13/19 [History] Rosuvastatin Calcium [Crestor] 40 mg PO BEDTIME 10/13/19 [History] Spironolactone [Aldactone] 50 mg PO DAILY 10/13/19 [History] metFORMIN HCl [Metformin HCl ER] 750 mg PO BID 10/13/19 [History] polyethylene glycoL 3350 [MiraLAX] 17 gm PO DAILY 10/13/19 [History] Albuterol [Proventil Neb Soln] 2.5 mg INH QID 01/30/20 [History] Amitriptyline [Elavil] 25 mg PO BEDTIME 12/30/19 [History] Celecoxib 100 mg PO DAILY 12/30/19 [History] Furosemide 40 mg PO DAILY 12/30/19 [History] Gabapentin [Neurontin] 300 mg PO BID@12,18 12/30/19 [History] Gabapentin [Neurontin] 600 mg PO BID@08,21 12/30/19 [History] Loratadine 10 mg PO DAILY 12/30/19 [History] Methocarbamol [Robaxin-750] 750 mg PO BEDTIME 12/30/19 [History] Tiotropium [Spiriva HandiHaler] 18 mcg INH DAILY 12/30/19 [History] hydrOXYzine HCL [hydrOXYzine] 25 mg PO QID PRN 12/30/19 [History] Levofloxacin [Levaquin] 750 mg PO DAILY 7 Days #7 tablet 01/01/20 [Rx] Past Medical History HEENT History: Reports: None Other HEENT History: glasses and hearing aides Cardiovascular History: Reports: CAD, Heart Failure, High Cholesterol, Hypertension, [place], Stents Respiratory History: Reports: Asthma, COPD Other Respiratory History: states may need cpap but does not have one. Gastrointestinal History: Reports: Diverticulosis, Gastritis, GERD Genitourinary History: Reports: None Musculoskeletal History: Reports: Arthritis, Back Pain, Chronic Neurological History: Reports: None Psychiatric History: Reports: Anxiety, Depression, Panic Attack, PTSD Endocrine/Metabolic History: Reports: Diabetes, Type II Hematologic History: Reports: None Immunologic History: Reports: None Oncologic (Cancer) History: Reports: None Dermatologic History: Reports: None - Infectious Disease History Infectious Disease History: Reports: None - Past Surgical History Head Surgeries/Procedures: Reports: None Other Cardiovascular Surgeries/Procedures: 2004 2017 GI Surgical History: Reports: Colonoscopy Male Surgical History: Reports: None Social & Family History - Family History Family Medical History: Noncontributory - Tobacco Use Smoking Status *Q: Former Smoker Used Tobacco, but Quit: Yes Month/Year Tobacco Last Used: 1999 - Caffeine Use Caffeine Use: Reports: None - Recreational Drug Use Recreational Drug Use: No H&P Review of Systems - Review of Systems: Review Of Systems: See Below General: Reports: Fever, Chills HEENT: Reports: No Symptoms Pulmonary: Reports: Shortness of Breath, Cough Cardiovascular: Reports: No Symptoms Gastrointestinal: Reports: No Symptoms Genitourinary: Reports: No Symptoms Musculoskeletal: Reports: No Symptoms Skin: Reports: No Symptoms Psychiatric: Reports: No Symptoms Neurological: Reports: No Symptoms Hematologic/Lymphatic: Reports: No Symptoms Immunologic: Reports: No Symptoms Exam - Exam Exam: See Below - Vital Signs Vital Signs: Last Vital Signs Temp 98.3 F 12/30/19 15:00 Pulse 82 12/30/19 15:00 Resp 20 12/30/19 15:00 BP 135/59 L 12/30/19 15:00 Pulse Ox 94 L 12/30/19 15:00 Weight: 106.8 kg - Exam Quality Assessment: Supplemental Oxygen General: Alert, Oriented, Cooperative HEENT: Conjunctiva Clear, EOMI, Mucosa Moist & [place], Posterior Pharynx Clear, Pupils Equal, Pupils Reactive Lungs: Normal Respiratory Effort, Decreased Breath Sounds, Crackles Cardiovascular: Regular Rate, Regular Rhythm GI/Abdominal Exam: Normal Bowel Sounds, Soft, Non-Tender, No Distention Extremities: No Pedal Edema Skin: Warm, Dry, Intact Psychiatric: Alert, Normal Affect, Normal Mood - Patient Data Lab Results Last 24 hrs: Laboratory Results - last 24 hr 12/30/19 12/30/19 12/30/19 Range/Units 12:00 12:35 12:35 WBC 14.45 H (4.0-11.0) K/uL RBC 4.83 (4.50-5.90) M/uL Hgb 14.4 (13.0-17.0) g/dL Hct 44.0 (38.0-50.0) % MCV 91.1 (80.0-98.0) fL MCH 29.8 (27.0-32.0) pg MCHC 32.7 (31.0-37.0) g/dL RDW Std Deviation 50.0 (28.0-62.0) fl RDW Coeff of Rocco 15 (11.0-15.0) % Plt Count 250 (150-400) K/uL MPV 10.60 (7.40-12.00) fL Neut % (Auto) 71.4 (48.0-80.0) % Lymph % (Auto) 20.0 (16.0-40.0) % [place] % (Auto) 7.8 (0.0-15.0) % Eos % (Auto) 0.7 (0.0-7.0) % Baso % (Auto) 0.1 (0.0-1.5) % Neut # (Auto) 10.3 H (1.4-5.7) K/uL Lymph # (Auto) 2.9 H (0.6-2.4) K/uL [place] # (Auto) 1.1 H (0.0-0.8) K/uL Eos # (Auto) 0.1 (0.0-0.7) K/uL Baso # (Auto) 0.0 (0.0-0.1) K/uL Nucleated RBC % 0.0 /100WBC Nucleated RBCs # 0 K/uL INR 1.01 Sodium 139 (136-148) mmol/L Potassium 4.7 (3.5-5.1) mmol/L Chloride 100 (98-107) mmol/L Carbon Dioxide 30.9 (21.0-32.0) mmol/L BUN 28 H (7.0-18.0) mg/dL Creatinine 1.1 (0.8-1.3) mg/dL Est Cr Clr Drug Dosing 57.15 mL/min Estimated GFR (MDRD) > 60.0 ml/min Glucose 178 H (74-106) mg/dL Calcium 9.5 (8.5-10.1) mg/dL Total Bilirubin 0.5 (0.2-1.0) mg/dL AST 21 (15-37) IU/L ALT 30 (14-63) IU/L Alkaline Phosphatase 91 (46-116) U/L Troponin I < 0.050 (0.000-0.056) ng/mL Total Protein 8.2 (6.4-8.2) g/dL Albumin 3.4 (3.4-5.0) g/dL Globulin 4.8 H (2.6-4.0) g/dL Albumin/Globulin Ratio 0.7 L (0.9-1.6) Urine Color Urine Appearance Urine pH (5.0-8.0) Ur Specific [place] (1.001-1.035) Urine Protein (NEGATIVE) mg/dL Urine Glucose (UA) (NEGATIVE) mg/dL Urine Ketones (NEGATIVE) mg/dL Urine Occult Blood (NEGATIVE) Urine Nitrite (NEGATIVE) Urine Bilirubin (NEGATIVE) Urine Urobilinogen (<2.0) EU/dL Ur Leukocyte Esterase (NEGATIVE) 12/30/19 Range/Units 14:43 WBC (4.0-11.0) K/uL RBC (4.50-5.90) M/uL Hgb (13.0-17.0) g/dL Hct (38.0-50.0) % MCV (80.0-98.0) fL MCH (27.0-32.0) pg MCHC (31.0-37.0) g/dL RDW Std Deviation (28.0-62.0) fl RDW Coeff of Rocco (11.0-15.0) % Plt Count (150-400) K/uL MPV (7.40-12.00) fL Neut % (Auto) (48.0-80.0) % Lymph % (Auto) (16.0-40.0) % [place] % (Auto) (0.0-15.0) % Eos % (Auto) (0.0-7.0) % Baso % (Auto) (0.0-1.5) % Neut # (Auto) (1.4-5.7) K/uL Lymph # (Auto) (0.6-2.4) K/uL [place] # (Auto) (0.0-0.8) K/uL Eos # (Auto) (0.0-0.7) K/uL Baso # (Auto) (0.0-0.1) K/uL Nucleated RBC % /100WBC Nucleated RBCs # K/uL INR Sodium (136-148) mmol/L Potassium (3.5-5.1) mmol/L Chloride (98-107) mmol/L Carbon Dioxide (21.0-32.0) mmol/L BUN (7.0-18.0) mg/dL Creatinine (0.8-1.3) mg/dL Est Cr Clr Drug Dosing mL/min Estimated GFR (MDRD) ml/min Glucose (74-106) mg/dL Calcium (8.5-10.1) mg/dL Total Bilirubin (0.2-1.0) mg/dL AST (15-37) IU/L ALT (14-63) IU/L Alkaline Phosphatase (46-116) U/L Troponin I (0.000-0.056) ng/mL Total Protein (6.4-8.2) g/dL Albumin (3.4-5.0) g/dL Globulin (2.6-4.0) g/dL Albumin/Globulin Ratio (0.9-1.6) Urine Color YELLOW Urine Appearance CLEAR Urine pH 5.5 (5.0-8.0) Ur Specific [place] 1.020 (1.001-1.035) Urine Protein NEGATIVE (NEGATIVE) mg/dL Urine Glucose (UA) NEGATIVE (NEGATIVE) mg/dL Urine Ketones NEGATIVE (NEGATIVE) mg/dL Urine Occult Blood NEGATIVE (NEGATIVE) Urine Nitrite NEGATIVE (NEGATIVE) Urine Bilirubin NEGATIVE (NEGATIVE) Urine Urobilinogen 0.2 (<2.0) EU/dL Ur Leukocyte Esterase NEGATIVE (NEGATIVE) Result Diagrams: 12/30/19 12:00 12/30/19 12:35 Jason Results Last 24 hrs: Microbiology 12/30/19 12:26 Anaerobic Blood Culture - Final Blood - Venous 12/30/19 11:44 Influenza Type A Antigen Screen - Final Nasopharyngeal Swab NEGATIVE INFLUENZA A VIRUS AG REFERENCE RANGE: NEGATIVE Influenza Type B Antigen Screen - Final NEGATIVE INFLUENZA B VIRUS AG REFERENCE RANGE: NEGATIVE Sepsis Event Note - Evaluation Sepsis Screening Result: No Definite Risk - Focused Exam Vital Signs: Vital Signs Temp Pulse Resp BP Pulse Ox 12/30/19 15:00 98.3 F 82 20 135/59 L 94 L 12/30/19 13:40 74 23 H 140/65 96 12/30/19 13:15 78 22 H 127/53 L 95 12/30/19 12:40 80 22 H 118/61 95 12/30/19 12:28 82 18 141/97 H 95 12/30/19 11:37 96.2 F 79 16 142/77 H 97 Date Exam was Performed: 12/30/19 Time Exam was Performed: 17:59 Problem List Initiated/Reviewed/Updated: Yes Orders Last 24hrs: Active Orders 24 hr Category Date Time Status Admission Status [Patient Status] [ADT] Stat ADT 12/30/19 13:32 Active Ambulate [RC] PER UNIT ROUTINE Care 12/30/19 17:33 Active Blood Glucose Check, Bedside [RC] [facility] 12/30/19 17:52 Ordered Intake and Output Strict [RC] ASDIRECTED Care 12/30/19 17:54 Ordered Oxygen Therapy [RC] CONTINUOUS Care 12/30/19 17:33 Active RT Aerosol Therapy [RC] ASDIRECTED Care 12/30/19 17:52 Ordered RT Incentive Spirometry [RC] Q2HWA Care 12/30/19 17:52 Ordered Telemetry Monitoring [Cardiac Monitoring] [RC] . Care 12/30/19 17:52 Ordered DIRECTED Vital Signs [RC] Q4H Care 12/30/19 17:33 Active ADA Diabetic [[place] [employer] Diet] [DIET Diet 12/30/19 Breakfast Active ] CULTURE BLOOD [BC] Stat Lab 12/30/19 12:26 Results CULTURE BLOOD [BC] Stat Lab 12/30/19 12:35 Received CULTURE SPUTUM + SMEAR [RM] Routine Lab 12/30/19 17:52 Ordered Acetaminophen/HYDROcodone [[place] 325-10 MG] Med 12/30/19 15:44 Active 1 tab PO TID PRN Albuterol/Ipratropium [DuoNeb 3.0-0.5 MG/3 ML] Med 12/30/19 17:52 Ordered 3 ml NEB Q4HRRT PRN Amitriptyline [Elavil] Med 12/30/19 21:00 Ordered 25 mg PO BEDTIME Aspirin [Halfprin] Med 12/31/19 09:00 Ordered 81 mg PO DAILY Celecoxib [CeleBREX] Med 12/31/19 09:00 Ordered 100 mg PO DAILY Citalopram [Celexa] Med 12/31/19 09:00 Ordered 10 mg PO DAILY Clopidogrel [Plavix] Med 12/31/19 09:00 Ordered 75 mg PO DAILY Furosemide [Lasix] Med 12/31/19 09:00 Ordered 40 mg PO DAILY Gabapentin [Neurontin] Med 12/30/19 18:00 Active 300 mg PO BID@12,18 Gabapentin [Neurontin] Med 12/30/19 21:00 Active 600 mg PO BID@08,21 Heparin Sodium Med 12/30/19 18:00 Ordered 5,000 units IVPUSH Q12H Insulin Aspart [NovoLOG] Med 12/30/19 21:00 Ordered See Protocol SUBCUT WITHMEALSANDBED Insulin Glarg,Human.Rec.Analog [LantUS Solostar] Med 12/30/19 21:00 Ordered 28 units SUBCUT BID Levofloxacin/Dextrose 5%-Water [Levaquin in D5W 750 MG/ Med 12/30/19 18:00 Ordered 150 ML] 750 mg Premix Bag 1 bag IV Q24H Loratadine [Claritin] Med 12/31/19 09:00 Ordered 10 mg PO DAILY Metoprolol Tartrate Med 12/30/19 21:00 Ordered 50 mg PO BID Pantoprazole [ProTONIX] Med 12/31/19 09:00 Ordered 40 mg PO DAILY Pharmacy to Dose - Vancomycin Med 12/30/19 18:00 Ordered 1 dose .XX ASDIRECTED Piperacillin/Tazobactam [Piperacil-Tazobact] 4.5 gm Med 12/30/19 18:00 Ordered Sodium Chloride 0.9% [Normal Saline] 100 ml IV Q6H Rosuvastatin Calcium [Crestor] Med 12/30/19 21:00 Ordered 40 mg PO BEDTIME Sodium Chloride 0.9% [Normal Saline] 1,000 ml Med 12/30/19 11:45 Active IV STAT Spironolactone Med 12/31/19 09:00 Ordered 50 mg PO DAILY methocarbamoL Med 12/30/19 21:00 Ordered 750 mg PO BEDTIME polyethylene glycoL 3350 [MiraLAX] Med 12/31/19 09:00 Ordered 17 gm PO DAILY Blood Culture x2 Reflex Set [OM.PC] Stat Oth 12/30/19 11:31 Ordered Resuscitation Status Routine Resus Stat 12/30/19 17:52 Ordered Medication Orders Hydrocodone Bitart/Acetaminophen ([place] 325-10 Mg) 1 tab PO TID PRN PRN Reason: Pain Last Admin: 12/30/19 16:06 Dose: 1 tab Albuterol/Ipratropium (Duoneb 3.0-0.5 Mg/3 Ml) 3 ml NEB Q4HRRT PRN PRN Reason: Shortness of Breath Amitriptyline HCl (Elavil) 25 mg PO BEDTIME [facility] Aspirin (Halfprin) 81 mg PO DAILY [facility] Celecoxib (Celebrex) 100 mg PO DAILY [facility] Citalopram Hydrobromide (Celexa) 10 mg PO DAILY [facility] Clopidogrel Bisulfate (Plavix) 75 mg PO DAILY [facility] Furosemide (Lasix) 40 mg PO DAILY [facility] Gabapentin (Neurontin) 300 mg PO BID@,18 [facility] Gabapentin (Neurontin) 600 mg PO BID@08, [facility] Heparin Sodium (Porcine) (Heparin Sodium) 5,000 units IVPUSH Q12H [facility] Sodium Chloride (Normal Saline) 1,000 mls @ 125 mls/hr IV STAT MAGEN Last Admin: 12/30/19 12:26 Dose: 125 mls/hr Levofloxacin/Dextrose 750 mg/ (Premix) 150 mls @ 100 mls/hr IV Q24H [facility] Piperacillin Sod/Tazobactam (Sod 4.5 gm/ Sodium Chloride) 100 mls @ 100 mls/hr IV Q6H [facility] Insulin Aspart (Novolog) 0 unit SUBCUT WITHMEALSANDBED MAGEN; Protocol Insulin Glargine (Lantus Solostar) 28 units SUBCUT BID [facility] Loratadine (Claritin) 10 mg PO DAILY [facility] Methocarbamol (Methocarbamol) 750 mg PO BEDTIME [facility] Non-Formulary Medication (Metoprolol Tartrate) 50 mg PO BID [facility] Non-Formulary Medication (Rosuvastatin Calcium [Crestor]) 40 mg PO BEDTIME [facility] Non-Formulary Medication (Spironolactone) 50 mg PO DAILY [facility] Pantoprazole Sodium (Protonix) 40 mg PO DAILY [facility] Polyethylene Glycol (Miralax) 17 gm PO DAILY [facility] Vancomycin HCl (Pharmacy To Dose - Vancomycin) 1 dose .XX ASDIRECTED [facility] Assessment/Plan Comment:: 1. Admit for observation 2. Code Status- DNR, Intubation ok 3. Vitals per routine 4. I/Os strict 5. Diet- ADA 6. DVT prophylaxis-Heparin 7. Acute hypoxic respiratory failure- secondary to pneumonia-suspect gram negative infection- Due to recent admission for pneumonia, will treat with Zosyn, Vanco, and Levaquin. Will obtain sputum culture. Will have duonebs. Encourage IS. Blood culture pending. 8. DMII- resume long acting 28 units BID, sliding scale and accucheks 9. PMH- CAD, HTN, hyperlipidemia, chronic pain- monitor on telemetry and continue meds. <Carmen Tineo - Last Filed: 01/09/20 16:26> H&P History of Present Illness - General Admit Problem/Dx: Admission Diagnosis/Problem Admission Diagnosis/Problem Pneumonia Exam - Vital Signs Vital Signs: Last Vital Signs Temp 35.9 C 01/01/20 12:38 Pulse 99 01/01/20 12:38 Resp 16 01/01/20 12:38 BP 118/58 L 01/01/20 12:38 Pulse Ox 97 01/01/20 12:38 - Patient Data Result Diagrams: 01/01/20 06:12 01/01/20 06:12 Assessment/Plan Comment:: I performed a history and physical exam of the patient and discussed management with resident. I have reviewed the residents note and agree with documented findings and plan unless otherwise specified in my note.
[2019-12-30] MEDS: Piperacillin/Tazobactam 4.5 GM in Sodium Chloride 0.9% 100 ML IV SCH (18:12)
[2019-12-30] MEDS: Gabapentin 300 MG Cap PO SCH ×2 (18:14→20:42)
[2019-12-30] MEDS ORDERED: Vancomycin 1.5 GM in Sodium Chloride 0.9% 500 ML IV SCH (19:00)
[2019-12-30] MEDS ORDERED: Heparin Sodium 5,000 Units/ML Vial SUBCUT SCH (20:00)
[2019-12-30] MEDS: Rosuvastatin 10 MG Tab PO SCH (20:42)
[2019-12-30] MEDS: Metoprolol Tartrate 50 MG Tab PO SCH (20:44)
[2019-12-30] MEDS: Amitriptyline 25 MG Tab PO SCH (20:47)
[2019-12-30] MEDS: Insulin Aspart 100 Units/ML 3 ML Pen SUBCUT SCH (21:22)
[2019-12-30] MEDS: Insulin Glargine,Human Rec. Analog 100 Units/ML 3 ML Pen SUBCUT SCH (21:23)
[2019-12-30] MEDS: Levofloxacin/Dextrose 5%-Water 750 MG in Premix Bag 1 BAG IV SCH (21:26)
[2019-12-30] MEDS: Methocarbamol 750 MG TAB PO SCH (22:19)
[2019-12-30] MEDS ORDERED: Lactated Ringers 1,000 ML IV ONE ×2 (23:12→23:13)
[2019-12-30] MEDS ORDERED: Aluminum Hydroxide/Magnesium Hydroxide/Simethicone Susp 30 ML Cup PO ONE (23:17)
[2019-12-30] MEDS ORDERED: Pantoprazole 40 MG in Sodium Chloride 0.9% 10 ML IV ONE (23:17)
[2019-12-30] MEDS: Albuterol/Ipratropium 3.0-0.5 MG/3 ML Neb Soln NEB SCH (23:43)
[2019-12-31] MEDS: Acetaminophen/HYDROcodone 325-10 MG Tab PO PRN ×3 (00:08→17:26)
[2019-12-31] MEDS: Piperacillin/Tazobactam 4.5 GM in Sodium Chloride 0.9% 100 ML IV SCH ×5 (00:11→20:05)
[2019-12-31] MEDS: Albuterol/Ipratropium 3.0-0.5 MG/3 ML Neb Soln NEB SCH ×6 (01:28→21:20)
[2019-12-31 03:36] LABS: BLOOD UREA NITROGEN,BUN 29 mg/dL (7.0-18.0); CHLORIDE,CL 102 mmol/L (98-107); GLUCOSE RANDOM 295 mg/dL (74-106); POTASSIUM,K 4.6 mmol/L (3.5-5.1); SODIUM,NA 139 mmol/L (136-148)
[2019-12-31] MEDS: Insulin Aspart 100 Units/ML 3 ML Pen SUBCUT SCH ×4 (07:22→20:51)
[2019-12-31] MEDS ORDERED: Albuterol/Ipratropium 3.0-0.5 MG/3 ML Neb Soln NEB ONE (08:01)
[2019-12-31] MEDS: Gabapentin 300 MG Cap PO SCH ×4 (08:30→20:37)
[2019-12-31] MEDS: Citalopram 20 MG Tab PO SCH (08:31)
[2019-12-31] MEDS: Loratadine 10 MG Tab PO SCH (08:33)
[2019-12-31] MEDS: Celecoxib 100 MG Cap PO SCH (08:33)
[2019-12-31] MEDS: Clopidogrel 75 MG Tab PO SCH (08:34)
[2019-12-31] MEDS: Spironolactone 25 MG Tab PO SCH (08:35)
[2019-12-31] MEDS: Aspirin 81 MG Tab.EC PO SCH (08:35)
[2019-12-31] MEDS: Metoprolol Tartrate 50 MG Tab PO SCH ×2 (08:35→20:37)
--- NOTE | 2019-12-31 08:50 | PCM.PN ---
<Brea Carson - Last Filed: 12/31/19 12:06> - General Info Date of Service: 12/31/19 Subjective Update: Patient reports feeling a little bit better, oxygen requirement down to 2.5 L. No fevers. Eating and drinking ok. Reports bright red blood per rectum when wiping, has hx of hemorrhoids. - Review of Systems General: Reports: No Symptoms HEENT: Reports: No Symptoms Pulmonary: Reports: Shortness of Breath (improved), Cough Cardiovascular: Reports: No Symptoms Gastrointestinal: Reports: No Symptoms Genitourinary: Reports: No Symptoms Musculoskeletal: Reports: No Symptoms Skin: Reports: No Symptoms Neurological: Reports: No Symptoms Psychiatric: Reports: No Symptoms - Patient Data Vitals - Most Recent: Last Vital Signs Temp 97.2 F 12/31/19 07:34 Pulse 87 12/31/19 08:35 Resp 24 H 12/31/19 07:34 BP 127/51 L 12/31/19 08:35 Pulse Ox 95 12/31/19 07:34 Weight - Most Recent: 106.8 kg I&O - Last 24 Hours: Intake & Output 12/30/19 12/31/19 12/31/19 22:59 06:59 14:59 Intake Total 200 2710 Output Total 0 400 Balance 200 2310 Lab Results Last 24 Hours: Laboratory Results - last 24 hr 12/30/19 12/30/19 12/30/19 Range/Units 12:00 12:35 12:35 WBC 14.45 H (4.0-11.0) K/uL RBC 4.83 (4.50-5.90) M/uL Hgb 14.4 (13.0-17.0) g/dL Hct 44.0 (38.0-50.0) % MCV 91.1 (80.0-98.0) fL MCH 29.8 (27.0-32.0) pg MCHC 32.7 (31.0-37.0) g/dL RDW Std Deviation 50.0 (28.0-62.0) fl RDW Coeff of Rocco 15 (11.0-15.0) % Plt Count 250 (150-400) K/uL MPV 10.60 (7.40-12.00) fL Neut % (Auto) 71.4 (48.0-80.0) % Lymph % (Auto) 20.0 (16.0-40.0) % [place] % (Auto) 7.8 (0.0-15.0) % Eos % (Auto) 0.7 (0.0-7.0) % Baso % (Auto) 0.1 (0.0-1.5) % Neut # (Auto) 10.3 H (1.4-5.7) K/uL Lymph # (Auto) 2.9 H (0.6-2.4) K/uL [place] # (Auto) 1.1 H (0.0-0.8) K/uL Eos # (Auto) 0.1 (0.0-0.7) K/uL Baso # (Auto) 0.0 (0.0-0.1) K/uL Nucleated RBC % 0.0 /100WBC Nucleated RBCs # 0 K/uL INR 1.01 Lactate (0.20-2.00) mmol/L Sodium 139 (136-148) mmol/L Potassium 4.7 (3.5-5.1) mmol/L Chloride 100 (98-107) mmol/L Carbon Dioxide 30.9 (21.0-32.0) mmol/L BUN 28 H (7.0-18.0) mg/dL Creatinine 1.1 (0.8-1.3) mg/dL Est Cr Clr Drug Dosing 57.15 mL/min Estimated GFR (MDRD) > 60.0 ml/min Glucose 178 H (74-106) mg/dL POC Glucose (60-110) mg/dL Calcium 9.5 (8.5-10.1) mg/dL Total Bilirubin 0.5 (0.2-1.0) mg/dL AST 21 (15-37) IU/L ALT 30 (14-63) IU/L Alkaline Phosphatase 91 (46-116) U/L Troponin I < 0.050 (0.000-0.056) ng/mL Total Protein 8.2 (6.4-8.2) g/dL Albumin 3.4 (3.4-5.0) g/dL Globulin 4.8 H (2.6-4.0) g/dL Albumin/Globulin Ratio 0.7 L (0.9-1.6) Urine Color Urine Appearance Urine pH (5.0-8.0) Ur Specific Corder (1.001-1.035) Urine Protein (NEGATIVE) mg/dL Urine Glucose (UA) (NEGATIVE) mg/dL Urine Ketones (NEGATIVE) mg/dL Urine Occult Blood (NEGATIVE) Urine Nitrite (NEGATIVE) Urine Bilirubin (NEGATIVE) Urine Urobilinogen (<2.0) EU/dL Ur Leukocyte Esterase (NEGATIVE) 12/30/19 12/30/19 12/30/19 Range/Units 14:43 19:59 20:45 WBC (4.0-11.0) K/uL RBC (4.50-5.90) M/uL Hgb (13.0-17.0) g/dL Hct (38.0-50.0) % MCV (80.0-98.0) fL MCH (27.0-32.0) pg MCHC (31.0-37.0) g/dL RDW Std Deviation (28.0-62.0) fl RDW Coeff of Rocco (11.0-15.0) % Plt Count (150-400) K/uL MPV (7.40-12.00) fL Neut % (Auto) (48.0-80.0) % Lymph % (Auto) (16.0-40.0) % [place] % (Auto) (0.0-15.0) % Eos % (Auto) (0.0-7.0) % Baso % (Auto) (0.0-1.5) % Neut # (Auto) (1.4-5.7) K/uL Lymph # (Auto) (0.6-2.4) K/uL [place] # (Auto) (0.0-0.8) K/uL Eos # (Auto) (0.0-0.7) K/uL Baso # (Auto) (0.0-0.1) K/uL Nucleated RBC % /100WBC Nucleated RBCs # K/uL INR Lactate (0.20-2.00) mmol/L Sodium (136-148) mmol/L Potassium (3.5-5.1) mmol/L Chloride (98-107) mmol/L Carbon Dioxide (21.0-32.0) mmol/L BUN (7.0-18.0) mg/dL Creatinine (0.8-1.3) mg/dL Est Cr Clr Drug Dosing mL/min Estimated GFR (MDRD) ml/min Glucose (74-106) mg/dL POC Glucose 425 H (60-110) mg/dL Calcium (8.5-10.1) mg/dL Total Bilirubin (0.2-1.0) mg/dL AST (15-37) IU/L ALT (14-63) IU/L Alkaline Phosphatase (46-116) U/L Troponin I < 0.050 (0.000-0.056) ng/mL Total Protein (6.4-8.2) g/dL Albumin (3.4-5.0) g/dL Globulin (2.6-4.0) g/dL Albumin/Globulin Ratio (0.9-1.6) Urine Color YELLOW Urine Appearance CLEAR Urine pH 5.5 (5.0-8.0) Ur Specific Corder 1.020 (1.001-1.035) Urine Protein NEGATIVE (NEGATIVE) mg/dL Urine Glucose (UA) NEGATIVE (NEGATIVE) mg/dL Urine Ketones NEGATIVE (NEGATIVE) mg/dL Urine Occult Blood NEGATIVE (NEGATIVE) Urine Nitrite NEGATIVE (NEGATIVE) Urine Bilirubin NEGATIVE (NEGATIVE) Urine Urobilinogen 0.2 (<2.0) EU/dL Ur Leukocyte Esterase NEGATIVE (NEGATIVE) 12/30/19 12/31/19 12/31/19 Range/Units 22:34 03:00 03:00 WBC 8.02 (4.0-11.0) K/uL RBC 3.96 L (4.50-5.90) M/uL Hgb 11.7 L (13.0-17.0) g/dL Hct 36.2 L (38.0-50.0) % MCV 91.4 (80.0-98.0) fL MCH 29.5 (27.0-32.0) pg MCHC 32.3 (31.0-37.0) g/dL RDW Std Deviation 49.8 (28.0-62.0) fl RDW Coeff of Rocco 15 (11.0-15.0) % Plt Count 203 (150-400) K/uL MPV 10.00 (7.40-12.00) fL Neut % (Auto) 80.4 H (48.0-80.0) % Lymph % (Auto) 14.5 L (16.0-40.0) % [place] % (Auto) 5.0 (0.0-15.0) % Eos % (Auto) 0.0 (0.0-7.0) % Baso % (Auto) 0.1 (0.0-1.5) % Neut # (Auto) 6.5 H (1.4-5.7) K/uL Lymph # (Auto) 1.2 (0.6-2.4) K/uL [place] # (Auto) 0.4 (0.0-0.8) K/uL Eos # (Auto) 0.0 (0.0-0.7) K/uL Baso # (Auto) 0.0 (0.0-0.1) K/uL Nucleated RBC % 0.0 /100WBC Nucleated RBCs # 0 K/uL INR Lactate 2.3 H* (0.20-2.00) mmol/L Sodium 139 (136-148) mmol/L Potassium 4.6 (3.5-5.1) mmol/L Chloride 102 (98-107) mmol/L Carbon Dioxide 32.0 (21.0-32.0) mmol/L BUN 29 H (7.0-18.0) mg/dL Creatinine 1.1 (0.8-1.3) mg/dL Est Cr Clr Drug Dosing 57.29 mL/min Estimated GFR (MDRD) > 60.0 ml/min Glucose 295 H (74-106) mg/dL POC Glucose (60-110) mg/dL Calcium 8.5 (8.5-10.1) mg/dL Total Bilirubin (0.2-1.0) mg/dL AST (15-37) IU/L ALT (14-63) IU/L Alkaline Phosphatase (46-116) U/L Troponin I < 0.050 (0.000-0.056) ng/mL Total Protein (6.4-8.2) g/dL Albumin (3.4-5.0) g/dL Globulin (2.6-4.0) g/dL Albumin/Globulin Ratio (0.9-1.6) Urine Color Urine Appearance Urine pH (5.0-8.0) Ur Specific Corder (1.001-1.035) Urine Protein (NEGATIVE) mg/dL Urine Glucose (UA) (NEGATIVE) mg/dL Urine Ketones (NEGATIVE) mg/dL Urine Occult Blood (NEGATIVE) Urine Nitrite (NEGATIVE) Urine Bilirubin (NEGATIVE) Urine Urobilinogen (<2.0) EU/dL Ur Leukocyte Esterase (NEGATIVE) 12/31/19 12/31/19 Range/Units 03:00 06:14 WBC (4.0-11.0) K/uL RBC (4.50-5.90) M/uL Hgb (13.0-17.0) g/dL Hct (38.0-50.0) % MCV (80.0-98.0) fL MCH (27.0-32.0) pg MCHC (31.0-37.0) g/dL RDW Std Deviation (28.0-62.0) fl RDW Coeff of Rocco (11.0-15.0) % Plt Count (150-400) K/uL MPV (7.40-12.00) fL Neut % (Auto) (48.0-80.0) % Lymph % (Auto) (16.0-40.0) % [place] % (Auto) (0.0-15.0) % Eos % (Auto) (0.0-7.0) % Baso % (Auto) (0.0-1.5) % Neut # (Auto) (1.4-5.7) K/uL Lymph # (Auto) (0.6-2.4) K/uL [place] # (Auto) (0.0-0.8) K/uL Eos # (Auto) (0.0-0.7) K/uL Baso # (Auto) (0.0-0.1) K/uL Nucleated RBC % /100WBC Nucleated RBCs # K/uL INR Lactate 1.7 (0.20-2.00) mmol/L Sodium (136-148) mmol/L Potassium (3.5-5.1) mmol/L Chloride (98-107) mmol/L Carbon Dioxide (21.0-32.0) mmol/L BUN (7.0-18.0) mg/dL Creatinine (0.8-1.3) mg/dL Est Cr Clr Drug Dosing mL/min Estimated GFR (MDRD) ml/min Glucose (74-106) mg/dL POC Glucose 225 H (60-110) mg/dL Calcium (8.5-10.1) mg/dL Total Bilirubin (0.2-1.0) mg/dL AST (15-37) IU/L ALT (14-63) IU/L Alkaline Phosphatase (46-116) U/L Troponin I (0.000-0.056) ng/mL Total Protein (6.4-8.2) g/dL Albumin (3.4-5.0) g/dL Globulin (2.6-4.0) g/dL Albumin/Globulin Ratio (0.9-1.6) Urine Color Urine Appearance Urine pH (5.0-8.0) Ur Specific Corder (1.001-1.035) Urine Protein (NEGATIVE) mg/dL Urine Glucose (UA) (NEGATIVE) mg/dL Urine Ketones (NEGATIVE) mg/dL Urine Occult Blood (NEGATIVE) Urine Nitrite (NEGATIVE) Urine Bilirubin (NEGATIVE) Urine Urobilinogen (<2.0) EU/dL Ur Leukocyte Esterase (NEGATIVE) Jason Results Last 24 Hours: Microbiology 12/30/19 22:30 Gram Stain - Preliminary Sputum - Expectorated 12/30/19 12:26 Anaerobic Blood Culture - Final Blood - Venous 12/30/19 11:44 Influenza Type A Antigen Screen - Final Nasopharyngeal Swab NEGATIVE INFLUENZA A VIRUS AG REFERENCE RANGE: NEGATIVE Influenza Type B Antigen Screen - Final NEGATIVE INFLUENZA B VIRUS AG REFERENCE RANGE: NEGATIVE Med Orders - Current: Current Medications Hydrocodone Bitart/Acetaminophen (Buras 325-10 Mg) 1 tab PO TID PRN PRN Reason: Pain Last Admin: 12/31/19 08:33 Dose: 1 tab Albuterol/Ipratropium (Duoneb 3.0-0.5 Mg/3 Ml) 3 ml NEB Q4HRRT [facility] Last Admin: 12/31/19 06:08 Dose: 3 ml Amitriptyline HCl (Elavil) 25 mg PO BEDTIME [facility] Last Admin: 12/30/19 20:47 Dose: 25 mg Aspirin (Halfprin) 81 mg PO DAILY [facility] Last Admin: 12/31/19 08:35 Dose: 81 mg Celecoxib (Celebrex) 100 mg PO DAILY [facility] Last Admin: 12/31/19 08:33 Dose: 100 mg Citalopram Hydrobromide (Celexa) 10 mg PO DAILY [facility] Last Admin: 12/31/19 08:31 Dose: 10 mg Clopidogrel Bisulfate (Plavix) 75 mg PO DAILY [facility] Last Admin: 12/31/19 08:34 Dose: 75 mg Furosemide (Lasix) 40 mg PO DAILY [facility] Gabapentin (Neurontin) 300 mg PO BID@12,18 [facility] Last Admin: 12/30/19 18:14 Dose: 300 mg Gabapentin (Neurontin) 600 mg PO BID@08,21 [facility] Last Admin: 12/31/19 08:30 Dose: 600 mg Levofloxacin/Dextrose 750 mg/ (Premix) 150 mls @ 100 mls/hr IV Q24H [facility] Last Admin: 12/30/19 21:26 Dose: 100 mls/hr Piperacillin Sod/Tazobactam (Sod 4.5 gm/ Sodium Chloride) 100 mls @ 100 mls/hr IV Q6H [facility] Last Admin: 12/31/19 05:37 Dose: 100 mls/hr Vancomycin HCl 1.5 gm/ Premix 300 mls @ 200 mls/hr IV Q12H [facility] Insulin Aspart (Novolog) 0 unit SUBCUT WITHMEALSANDBED [facility]; Protocol Last Admin: 12/31/19 07:22 Dose: 6 units Insulin Glargine (Lantus Solostar) 28 units SUBCUT BID [facility] Last Admin: 12/30/19 21:23 Dose: 28 units Loratadine (Claritin) 10 mg PO DAILY [facility] Last Admin: 12/31/19 08:33 Dose: 10 mg Methocarbamol (Methocarbamol) 750 mg PO BEDTIME [facility] Last Admin: 12/30/19 22:19 Dose: Not Given Metoprolol Tartrate (Lopressor) 50 mg PO BID [facility] Last Admin: 12/31/19 08:35 Dose: 50 mg Pantoprazole Sodium (Protonix) 40 mg PO DAILY [facility] Last Admin: 12/31/19 08:34 Dose: 40 mg Polyethylene Glycol (Miralax) 17 gm PO DAILY [facility] Rosuvastatin Calcium (Crestor) 40 mg PO BEDTIME [facility] Last Admin: 12/30/19 20:42 Dose: 40 mg Spironolactone (Aldactone) 50 mg PO DAILY [facility] Last Admin: 12/31/19 08:35 Dose: 50 mg Vancomycin HCl (Pharmacy To Dose - Vancomycin) 1 dose .XX ASDIRECTED [facility] Discontinued Medications Al Hydroxide/Mg Hydroxide (Mag-Al Plus) 30 ml PO ONETIME ONE Stop: 12/30/19 23:18 Last Admin: 12/30/19 23:25 Dose: 30 ml Albuterol/Ipratropium (Duoneb 3.0-0.5 Mg/3 Ml) 3 ml NEB ONETIME ONE Stop: 12/30/19 11:32 Last Admin: 12/30/19 12:05 Dose: 3 ml Albuterol/Ipratropium (Duoneb 3.0-0.5 Mg/3 Ml) 3 ml NEB Q4HRRT PRN PRN Reason: Shortness of Breath Albuterol/Ipratropium (Duoneb 3.0-0.5 Mg/3 Ml) 3 ml NEB ONETIME ONE Stop: 12/31/19 08:02 Last Admin: 12/31/19 08:06 Dose: 3 ml Heparin Sodium (Porcine) (Heparin Sodium) 5,000 units IVPUSH Q12H [facility] Last Admin: 12/30/19 19:33 Dose: Not Given Heparin Sodium (Porcine) (Heparin Sodium) 5,000 units SUBCUT Q12H [facility] Last Admin: 12/30/19 19:49 Dose: 5,000 units Sodium Chloride (Normal Saline) 1,000 mls @ 125 mls/hr IV STAT [facility] Last Admin: 12/30/19 12:26 Dose: 125 mls/hr Piperacillin Sod/Tazobactam (Sod 3.375 gm/ Sodium Chloride) 50 mls @ 100 mls/ hr IV ONETIME ONE Stop: 12/30/19 13:03 Last Admin: 12/30/19 13:15 Dose: 100 mls/hr Vancomycin HCl 1 gm/ Sodium (Chloride) 250 mls @ 166 mls/hr IV ONETIME ONE Stop: 12/30/19 14:04 Last Admin: 12/30/19 14:03 Dose: 166 mls/hr Vancomycin HCl 1.5 gm/ Sodium (Chloride) 500 mls @ 333.333 mls/hr IV Q12H [facility] Last Admin: 12/30/19 20:18 Dose: Not Given Vancomycin HCl 1 gm/ Sodium (Chloride) 250 mls @ 166 mls/hr IV ONETIME ONE Stop: 12/30/19 21:20 Last Admin: 12/30/19 19:45 Dose: 166 mls/hr Lactated Ringer's (Ringers, Lactated) 1,000 mls @ 999 mls/hr IV .BOLUS ONE Stop: 12/31/19 00:12 Last Admin: 12/30/19 23:44 Dose: 999 mls/hr Lactated Ringer's (Ringers, Lactated) 1,000 mls @ 999 mls/hr IV .BOLUS ONE Stop: 12/31/19 00:13 Last Admin: 12/31/19 01:03 Dose: 999 mls/hr Pantoprazole Sodium 40 mg/ (Sodium Chloride) 10 mls @ 300 mls/hr IV NOW ONE Stop: 12/30/19 23:18 Last Admin: 12/30/19 23:25 Dose: 300 mls/hr Methylprednisolone Sodium Succinate (Solu-Medrol) 125 mg IVPUSH ONETIME ONE Stop: 12/30/19 11:32 Last Admin: 12/30/19 12:27 Dose: 125 mg Vancomycin HCl (Pharmacy To Dose - Vancomycin) 1 dose .XX ASDIRECTED [facility] - Exam Quality Assessment: Supplemental Oxygen General: Alert, Oriented, Cooperative Lungs: Normal Respiratory Effort, Wheezing, Other (lungs opening up-improved) GI/Abdominal Exam: Normal Bowel Sounds, Soft, Non-Tender, No Distention Extremities: No Pedal Edema Skin: Warm, Dry, Intact Neurological: No New Focal Deficit Psy/Mental Status: Alert, Normal Affect, Normal Mood Sepsis Event Note - Evaluation Sepsis Screening Result: Severe Sepsis Risk - Focused Exam Vital Signs: Vital Signs Temp Pulse Pulse Resp BP BP Pulse Ox 12/31/19 08:35 87 127/51 L 12/31/19 07:34 97.2 F 83 24 H 127/62 95 12/31/19 03:00 96.5 F 71 20 108/53 L 95 12/30/19 22:38 96.5 F 91 24 H 140/70 97 Date Exam was Performed: 12/31/19 Time Exam was Performed: 12:06 - Problem List Review Problem List Initiated/Reviewed/Updated: Yes - My Orders Last 24 Hours: My Active Orders 12/30/19 17:52 Blood Glucose Check, Bedside [RC] WITHMEALSANDBED RT Aerosol Therapy [RC] ASDIRECTED RT Incentive Spirometry [RC] Q2HWA Telemetry Monitoring [Cardiac Monitoring] [RC] Q8H Resuscitation Status Routine 12/30/19 17:54 Intake and Output Strict [RC] Q12H 12/30/19 18:00 Pharmacy to Dose - Vancomycin 1 dose .XX ASDIRECTED Piperacillin/Tazobactam [Piperacil-Tazobact] 4.5 gm Sodium Chloride 0.9% [ Normal Saline] 100 ml IV Q6H 12/30/19 21:00 Amitriptyline [Elavil] 25 mg PO BEDTIME Insulin Aspart [NovoLOG] See Protocol SUBCUT WITHMEALSANDBED Insulin Glarg,Human.Rec.Analog [LantUS Solostar] 28 units SUBCUT BID Levofloxacin/Dextrose 5%-Water [Levaquin in D5W 750 MG/150 ML] 750 mg Premix Bag 1 bag IV Q24H Metoprolol Tartrate [Lopressor] 50 mg PO BID Rosuvastatin [Crestor] 40 mg PO BEDTIME methocarbamoL 750 mg PO BEDTIME 12/30/19 22:30 CULTURE SPUTUM + SMEAR [RM] Routine 12/31/19 08:02 RT Aerosol Therapy [RC] ASDIRECTED 12/31/19 09:00 Aspirin [Halfprin] 81 mg PO DAILY Celecoxib [CeleBREX] 100 mg PO DAILY Citalopram [Celexa] 10 mg PO DAILY Clopidogrel [Plavix] 75 mg PO DAILY Furosemide [Lasix] 40 mg PO DAILY Loratadine [Claritin] 10 mg PO DAILY Pantoprazole [ProTONIX] 40 mg PO DAILY Spironolactone [Aldactone] 50 mg PO DAILY polyethylene glycoL 3350 [MiraLAX] 17 gm PO DAILY - Plan Plan:: 1. Acute hypoxic respiratory failure- secondary to pneumonia-suspect gram negative infection improving- WBC resolved, oxygen requirement 2.5 L (home 2.5) . Continue Zosyn, Vanco, and Levaquin. Sputum culture pending. Will have duonebs. Encourage IS. Blood culture pending. 2. Lactic Acidosis- resolved 3. DMII- resume long acting 28 units BID, sliding scale and accucheks 4. PMH- CAD, HTN, hyperlipidemia, chronic pain- monitor on telemetry and continue meds. 5. Bright red blood per rectum- likely hemorrhoids- will start IV PPI, get stool occult, and recheck H/H this evening. <NomanCarmen - Last Filed: 01/09/20 16:26> - Patient Data Vitals - Most Recent: Last Vital Signs Temp 35.9 C 01/01/20 12:38 Pulse 99 01/01/20 12:38 Resp 16 01/01/20 12:38 BP 118/58 L 01/01/20 12:38 Pulse Ox 97 01/01/20 12:38 Med Orders - Current: Current Medications Discontinued Medications Hydrocodone Bitart/Acetaminophen (Buras 325-10 Mg) 1 tab PO TID PRN PRN Reason: Pain Last Admin: 01/01/20 09:22 Dose: 1 tab Al Hydroxide/Mg Hydroxide (Mag-Al Plus) 30 ml PO ONETIME ONE Stop: 12/30/19 23:18 Last Admin: 12/30/19 23:25 Dose: 30 ml Albuterol/Ipratropium (Duoneb 3.0-0.5 Mg/3 Ml) 3 ml NEB ONETIME ONE Stop: 12/30/19 11:32 Last Admin: 12/30/19 12:05 Dose: 3 ml Albuterol/Ipratropium (Duoneb 3.0-0.5 Mg/3 Ml) 3 ml NEB Q4HRRT PRN PRN Reason: Shortness of Breath Albuterol/Ipratropium (Duoneb 3.0-0.5 Mg/3 Ml) 3 ml NEB Q4HRRT [facility] Last Admin: 01/01/20 10:03 Dose: 3 ml Albuterol/Ipratropium (Duoneb 3.0-0.5 Mg/3 Ml) 3 ml NEB ONETIME ONE Stop: 12/31/19 08:02 Last Admin: 12/31/19 08:06 Dose: 3 ml Amitriptyline HCl (Elavil) 25 mg PO BEDTIME [facility] Last Admin: 12/31/19 20:37 Dose: 25 mg Aspirin (Halfprin) 81 mg PO DAILY [facility] Last Admin: 01/01/20 08:24 Dose: 81 mg Celecoxib (Celebrex) 100 mg PO DAILY [facility] Last Admin: 01/01/20 08:22 Dose: 100 mg Citalopram Hydrobromide (Celexa) 10 mg PO DAILY [facility] Last Admin: 01/01/20 08:24 Dose: 10 mg Clopidogrel Bisulfate (Plavix) 75 mg PO DAILY [facility] Last Admin: 01/01/20 08:23 Dose: 75 mg Furosemide (Lasix) 40 mg PO DAILY [facility] Last Admin: 01/01/20 08:25 Dose: 40 mg Gabapentin (Neurontin) 300 mg PO BID@12,18 [facility] Last Admin: 12/31/19 17:23 Dose: 300 mg Gabapentin (Neurontin) 600 mg PO BID@08,21 [facility] Last Admin: 01/01/20 08:01 Dose: 600 mg Heparin Sodium (Porcine) (Heparin Sodium) 5,000 units IVPUSH Q12H [facility] Last Admin: 12/30/19 19:33 Dose: Not Given Heparin Sodium (Porcine) (Heparin Sodium) 5,000 units SUBCUT Q12H [facility] Last Admin: 12/30/19 19:49 Dose: 5,000 units Sodium Chloride (Normal Saline) 1,000 mls @ 125 mls/hr IV STAT [facility] Last Admin: 12/30/19 12:26 Dose: 125 mls/hr Piperacillin Sod/Tazobactam (Sod 3.375 gm/ Sodium Chloride) 50 mls @ 100 mls/ hr IV ONETIME ONE Stop: 12/30/19 13:03 Last Admin: 12/30/19 13:15 Dose: 100 mls/hr Vancomycin HCl 1 gm/ Sodium (Chloride) 250 mls @ 166 mls/hr IV ONETIME ONE Stop: 12/30/19 14:04 Last Admin: 12/30/19 14:03 Dose: 166 mls/hr Levofloxacin/Dextrose 750 mg/ (Premix) 150 mls @ 100 mls/hr IV Q24H [facility] Last Admin: 12/31/19 21:22 Dose: 100 mls/hr Piperacillin Sod/Tazobactam (Sod 4.5 gm/ Sodium Chloride) 100 mls @ 100 mls/hr IV Q6H [facility] Last Admin: 12/31/19 20:05 Dose: Not Given Vancomycin HCl 1.5 gm/ Sodium (Chloride) 500 mls @ 333.333 mls/hr IV Q12H [facility] Last Admin: 12/30/19 20:18 Dose: Not Given Vancomycin HCl 1.5 gm/ Premix 300 mls @ 200 mls/hr IV Q12H [facility] Last Admin: 01/01/20 11:02 Dose: 200 mls/hr Vancomycin HCl 1 gm/ Sodium (Chloride) 250 mls @ 166 mls/hr IV ONETIME ONE Stop: 12/30/19 21:20 Last Admin: 12/30/19 19:45 Dose: 166 mls/hr Lactated Ringer's (Ringers, Lactated) 1,000 mls @ 999 mls/hr IV .BOLUS ONE Stop: 12/31/19 00:12 Last Admin: 12/30/19 23:44 Dose: 999 mls/hr Lactated Ringer's (Ringers, Lactated) 1,000 mls @ 999 mls/hr IV .BOLUS ONE Stop: 12/31/19 00:13 Last Admin: 12/31/19 01:03 Dose: 999 mls/hr Pantoprazole Sodium 40 mg/ (Sodium Chloride) 10 mls @ 300 mls/hr IV NOW ONE Stop: 12/30/19 23:18 Last Admin: 12/30/19 23:25 Dose: 300 mls/hr Pantoprazole Sodium 40 mg/ (Sodium Chloride) 10 mls @ 300 mls/hr IV Q24H [facility] Last Admin: 01/01/20 13:01 Dose: Not Given Piperacillin Sod/Tazobactam (Sod 4.5 gm/ Sodium Chloride) 100 mls @ 100 mls/hr IV Q6H [facility] Last Admin: 01/01/20 08:02 Dose: 100 mls/hr Insulin Aspart (Novolog) 0 unit SUBCUT WITHMEALSANDBED [facility]; Protocol Last Admin: 01/01/20 07:59 Dose: 3 units Insulin Glargine (Lantus Solostar) 28 units SUBCUT BID [facility] Last Admin: 01/01/20 08:26 Dose: 28 units Loratadine (Claritin) 10 mg PO DAILY [facility] Last Admin: 01/01/20 08:24 Dose: 10 mg Methocarbamol (Methocarbamol) 750 mg PO BEDTIME [facility] Last Admin: 12/31/19 20:56 Dose: Not Given Methylprednisolone Sodium Succinate (Solu-Medrol) 125 mg IVPUSH ONETIME ONE Stop: 12/30/19 11:32 Last Admin: 12/30/19 12:27 Dose: 125 mg Metoprolol Tartrate (Lopressor) 50 mg PO BID [facility] Last Admin: 01/01/20 08:23 Dose: 50 mg Pantoprazole Sodium (Protonix) 40 mg PO DAILY [facility] Last Admin: 12/31/19 08:34 Dose: 40 mg Polyethylene Glycol (Miralax) 17 gm PO DAILY [facility] Last Admin: 12/31/19 14:09 Dose: Not Given Polyethylene Glycol (Miralax) 17 gm PO BEDTIME [facility] Last Admin: 12/31/19 20:38 Dose: 17 gm Rosuvastatin Calcium (Crestor) 40 mg PO BEDTIME [facility] Last Admin: 12/31/19 20:36 Dose: 40 mg Spironolactone (Aldactone) 50 mg PO DAILY [facility] Last Admin: 01/01/20 08:23 Dose: 50 mg Vancomycin HCl (Pharmacy To Dose - Vancomycin) 1 dose .XX ASDIRECTED [facility] Vancomycin HCl (Pharmacy To Dose - Vancomycin) 1 dose .XX ASDIRECTED [facility] - Plan Plan:: I have seen and evaluated the patient and agree with the residents note unless specified in my note
[2019-12-31] MEDS: Insulin Glargine,Human Rec. Analog 100 Units/ML 3 ML Pen SUBCUT SCH ×2 (08:58→20:50)
[2019-12-31] MEDS ORDERED: Polyethylene Glycol 3350 Powder 17 GM Packet PO SCH ×2 (09:00→21:00)
[2019-12-31] MEDS ORDERED: Pantoprazole 40 MG Tab.CR PO SCH (09:00)
[2019-12-31] MEDS: Furosemide 80 MG Tab PO SCH (11:41)
[2019-12-31] MEDS: Pantoprazole 40 MG in Sodium Chloride 0.9% 10 ML IV SCH (14:01)
[2019-12-31] MEDS: Rosuvastatin 10 MG Tab PO SCH (20:36)
[2019-12-31] MEDS: Amitriptyline 25 MG Tab PO SCH (20:37)
[2019-12-31] MEDS: Methocarbamol 750 MG TAB PO SCH (20:56)
[2019-12-31] MEDS: Levofloxacin/Dextrose 5%-Water 750 MG in Premix Bag 1 BAG IV SCH (21:22)
[2020-01-01] MEDS: Acetaminophen/HYDROcodone 325-10 MG Tab PO PRN ×2 (01:45→09:22)
[2020-01-01] MEDS: Albuterol/Ipratropium 3.0-0.5 MG/3 ML Neb Soln NEB SCH ×3 (01:47→10:03)
[2020-01-01] MEDS: Piperacillin/Tazobactam 4.5 GM in Sodium Chloride 0.9% 100 ML IV SCH ×2 (01:49→08:02)
[2020-01-01 06:51] LABS: BLOOD UREA NITROGEN,BUN 26 mg/dL (7.0-18.0); CARBON DIOXIDE,CO2 31.3 mmol/L (21.0-32.0); CHLORIDE,CL 104 mmol/L (98-107); GLUCOSE RANDOM 178 mg/dL (74-106); POTASSIUM,K 4.1 mmol/L (3.5-5.1); SODIUM,NA 142 mmol/L (136-148)
[2020-01-01] MEDS: Insulin Aspart 100 Units/ML 3 ML Pen SUBCUT SCH (07:59)
[2020-01-01] MEDS: Gabapentin 300 MG Cap PO SCH (08:01)
[2020-01-01] MEDS: Celecoxib 100 MG Cap PO SCH (08:22)
[2020-01-01] MEDS: Clopidogrel 75 MG Tab PO SCH (08:23)
[2020-01-01] MEDS: Metoprolol Tartrate 50 MG Tab PO SCH (08:23)
[2020-01-01] MEDS: Spironolactone 25 MG Tab PO SCH (08:23)
[2020-01-01] MEDS: Aspirin 81 MG Tab.EC PO SCH (08:24)
[2020-01-01] MEDS: Citalopram 20 MG Tab PO SCH (08:24)
[2020-01-01] MEDS: Loratadine 10 MG Tab PO SCH (08:24)
[2020-01-01] MEDS: Furosemide 80 MG Tab PO SCH (08:25)
[2020-01-01] MEDS: Insulin Glargine,Human Rec. Analog 100 Units/ML 3 ML Pen SUBCUT SCH (08:26)
--- NOTE | 2020-01-01 08:46 | PCM.DCSUM1 ---
<Brea Carson - Last Filed: 01/01/20 12:31> Discharge Summary - Hospital Course HPI Initial Comments: Admission Date: 12/30/19 Discharge Date: 01/01/20 Admission Diagnosis: 1. Acute hypoxic respiratory failure secondary to pneumonia-suspect gram- negative respiratory infection 2. DMII 3. Chronic conditions- CAD, hyperlipidemia, HTN, CHF, Chronic pain Discharge Diagnosis: 1. Acute hypoxic respiratory failure secondary to pneumonia-suspect gram- negative respiratory infection 2. DMII 3. Chronic conditions- CAD, hyperlipidemia, HTN, CHF, Chronic pain 4. Lactic acidosis- resolved 5. Hemorrhoids Procedures: None Consults: None Hospital Course: The patient is a 79 year old male with PMH of oxygen dependent COPD, CAD with stents, CHF DMII, HTN, hyperlipidemia, and chronic pain who presented to the ER with worsening SOB. . Was admitted in October 2019 for CAP. In the ER, work up revealed leukocytosis of 14.5, no anemia, electrolytes wnl, negative troponin, negative flu, no signs of infection on UA. CXR showed diffuse density of left mid/base lung as well as right base. In the ER he was given Zosyn, Vanco, duonebs, solumedrol and IVF. In the ER, his oxygen was weaned to three but by the time he was situated on the floor he was down to 2.5. He was admitted to the medical floor. He was placed on Zosyn, Vanco, and Levaquin due to recent admission for pneumonia as well as duonebs and his symptoms and lung exam improved. He was able to be weaned back down to home oxygen requirement. His leukocytosis and lactic acidosis resolved. HE was evaluated by speech therapy for recurrent pneumonia. She noted trouble with cold liquids. He reported to her history of esophageal dilation and recurrent vomiting at home. She is concerned for silent aspiration. She recommended video swallow study and esophagram He was continued on Lantus and sliding scale for DMII. He did complain of bright red blood per rectum with bowel movements, he has a history of hemorrhoids. Hemoglobin was monitored and stable, stool occult was negative. He was continued on home meds for chronic conditions. Resume home health once discharged. Disposition: Home with home health Discharge Condition: vitals stable, tolerating oral diet, ambulating without difficulty, symptom improvement Discharge Instructions: regular diet as tolerated, activity as tolerated, take medications as prescribed. Symptoms to report to physician include fever/chills , chest pain, shortness of breath, abdominal pain, erythema, drainage/discharge , or not improving as expected. Discharge Medications: Albuterol Sulfate [Albuterol Sulfate Hfa] 2 inh IH Q6H PRN Albuterol/Ipratropium [DuoNeb 3.0-0.5 MG/3 ML] 3 ml NEB Q6H Aspirin [Ecotrin EC] 81 mg PO DAILY Budesonide/Formoterol Fumarate [Symbicort 160-4.5 Mcg Inhaler] 2 inh IH Q12H Citalopram [Citalopram HBr] 10 mg PO DAILY Clopidogrel [Plavix] 75 mg PO DAILY Diclofenac Sodium [Voltaren 1% Gel] 4 gm TOP QID PRN MDD total body dose 32gm max Hydrocodone/Acetaminophen [[place] 10-325 Tablet] 10 - 325 mg PO TID PRN Insulin Aspart [NovoLOG] 12 unit SUBCUT BID@08,12 Insulin Aspart [NovoLOG] 15 unit SUBCUT WITHDINNER Insulin Glarg,Human.Rec.Analog [Lantus Solostar] 28 unit SUBCUT BID Lidocaine 5% [Lidoderm 5%] 2 patch TD .ON 12 HR, OFF 12 HR Metoprolol Tartrate 50 mg PO BID Romance-3/DHA/Epa/Fish Oil [Fish Oil 1,000 mg Softgel] 1,000 mg PO BID Pantoprazole [ProTONIX] 40 mg PO DAILY Rosuvastatin Calcium [Crestor] 40 mg PO BEDTIME Spironolactone [Aldactone] 50 mg PO DAILY metFORMIN HCl [Metformin HCl ER] 750 mg PO BID polyethylene glycoL 3350 [MiraLAX] 17 gm PO DAILY Albuterol [Proventil Neb Soln] 2.5 mg INH QID Amitriptyline [Elavil] 25 mg PO BEDTIME Celecoxib 100 mg PO DAILY Furosemide 40 mg PO DAILY Gabapentin [Neurontin] 300 mg PO BID@ Gabapentin [Neurontin] 600 mg PO BID Loratadine 10 mg PO DAILY Methocarbamol [Robaxin-750] 750 mg PO BEDTIME Tiotropium [Spiriva HandiHaler] 18 mcg INH DAILY hydrOXYzine HCL [hydrOXYzine] 25 mg PO QID PRN Levofloxacin [Levaquin] 750 mg PO DAILY 7 Days Follow-[facility]: [facility]. Outpatient video swallow study and esophagram - Discharge Data Discharge Date: 01/01/20 Discharge Disposition: Home, W Home Health Agency 06 Condition: Stable - Referral to Home Health Date of Face to Face Encounter: 01/01/20 Reason for Homebound Status: resume home health Primary Care Physician: Javi Dobbs NP Skilled Need: resume home health - Patient Summary/Data Consults: Consultations 12/30/19 23:14 Consult to Speech Language Pathology [FOREIGN CORRESPONDENT Evaluation and Treatment] [CONS] Routine - Discharge Plan Prescriptions/Med Rec: Levofloxacin [Levaquin] 750 mg PO DAILY 7 Days #7 tablet Home Medications: Home Meds Albuterol Sulfate [Albuterol Sulfate Hfa] 2 inh IH Q6H PRN 10/13/19 [History] Albuterol/Ipratropium [DuoNeb 3.0-0.5 MG/3 ML] 3 ml NEB Q6H 10/13/19 [History] Aspirin [Ecotrin EC] 81 mg PO DAILY 10/13/19 [History] Budesonide/Formoterol Fumarate [Symbicort 160-4.5 Mcg Inhaler] 2 inh IH Q12H [History] Citalopram [Citalopram HBr] 10 mg PO DAILY 10/13/19 [History] Clopidogrel [Plavix] 75 mg PO DAILY 10/13/19 [History] Diclofenac Sodium [Voltaren 1% Gel] 4 gm TOP QID PRN MDD total body dose 32gm max 10/13/19 [History] Hydrocodone/Acetaminophen [[place] 10-325 Tablet] 10 - 325 mg PO TID PRN 10/13/19 [History] Insulin Aspart [NovoLOG] 12 unit SUBCUT BID@08,12 10/13/19 [History] Insulin Aspart [NovoLOG] 15 unit SUBCUT WITHDINNER 10/13/19 [History] Insulin Glarg,Human.Rec.Analog [Lantus Solostar] 28 unit SUBCUT BID 10/13/19 [ History] Lidocaine 5% [Lidoderm 5%] 2 patch TD .ON 12 HR, OFF 12 HR 10/13/19 [History] Metoprolol Tartrate 50 mg PO BID 10/13/19 [History] Romance-3/DHA/Epa/Fish Oil [Fish Oil 1,000 mg Softgel] 1,000 mg PO BID 10/13/19 [ History] Pantoprazole [ProTONIX] 40 mg PO DAILY 10/13/19 [History] Rosuvastatin Calcium [Crestor] 40 mg PO BEDTIME 10/13/19 [History] Spironolactone [Aldactone] 50 mg PO DAILY 10/13/19 [History] metFORMIN HCl [Metformin HCl ER] 750 mg PO BID 10/13/19 [History] polyethylene glycoL 3350 [MiraLAX] 17 gm PO DAILY 10/13/19 [History] Albuterol [Proventil Neb Soln] 2.5 mg INH QID 12/30/19 [History] Amitriptyline [Elavil] 25 mg PO BEDTIME 12/30/19 [History] Celecoxib 100 mg PO DAILY 12/30/19 [History] Furosemide 40 mg PO DAILY 12/30/19 [History] Gabapentin [Neurontin] 300 mg PO BID@,18 12/30/19 [History] Gabapentin [Neurontin] 600 mg PO BID@,12/30/19 [History] Loratadine 10 mg PO DAILY 12/30/19 [History] Methocarbamol [Robaxin-750] 750 mg PO BEDTIME 12/30/19 [History] Tiotropium [Spiriva HandiHaler] 18 mcg INH DAILY 12/30/19 [History] hydrOXYzine HCL [hydrOXYzine] 25 mg PO QID PRN 12/30/19 [History] Levofloxacin [Levaquin] 750 mg PO DAILY 7 Days #7 tablet 01/01/20 [Rx] Patient Handouts: Levofloxacin tablets, Community-Acquired Pneumonia, Adult, [id number] - Discharge Summary/Plan Comment DC Time >30 min.: No - Patient Data Vitals - Most Recent: Last Vital Signs Temp 96.6 F 01/01/20 05:36 Pulse 75 01/01/20 08:23 Resp 18 01/01/20 05:36 BP 117/56 L 01/01/20 08:23 Pulse Ox 96 01/01/20 05:36 Weight - Most Recent: 106.8 kg I&O - Last 24 hours: Intake & Output 12/31/19 01/01/20 01/01/20 22:59 06:59 14:59 Intake Total 1305 480 Output Total 100 550 Balance 1205 -70 Lab Results - Last 24 hrs: Laboratory Results - last 24 hr 12/31/19 12/31/19 12/31/19 Range/Units 11:46 16:03 17:24 WBC (4.0-11.0) K/uL RBC (4.50-5.90) M/uL Hgb 13.0 (13.0-17.0) g/dL Hct 41.2 (38.0-50.0) % MCV (80.0-98.0) fL MCH (27.0-32.0) pg MCHC (31.0-37.0) g/dL RDW Std Deviation (28.0-62.0) fl RDW Coeff of Rocco (11.0-15.0) % Plt Count (150-400) K/uL MPV (7.40-12.00) fL Neut % (Auto) (48.0-80.0) % Lymph % (Auto) (16.0-40.0) % Lamar % (Auto) (0.0-15.0) % Eos % (Auto) (0.0-7.0) % Baso % (Auto) (0.0-1.5) % Neut # (Auto) (1.4-5.7) K/uL Lymph # (Auto) (0.6-2.4) K/uL Lamar # (Auto) (0.0-0.8) K/uL Eos # (Auto) (0.0-0.7) K/uL Baso # (Auto) (0.0-0.1) K/uL Nucleated RBC % /100WBC Nucleated RBCs # K/uL Sodium (136-148) mmol/L Potassium (3.5-5.1) mmol/L Chloride (98-107) mmol/L Carbon Dioxide (21.0-32.0) mmol/L BUN (7.0-18.0) mg/dL Creatinine (0.8-1.3) mg/dL Est Cr Clr Drug Dosing mL/min Estimated GFR (MDRD) ml/min Glucose (74-106) mg/dL POC Glucose 270 H 263 H (60-110) mg/dL Calcium (8.5-10.1) mg/dL 12/31/19 01/01/20 01/01/20 Range/Units 20:44 06:12 06:12 WBC 6.85 (4.0-11.0) K/uL RBC 3.89 L (4.50-5.90) M/uL Hgb 11.4 L (13.0-17.0) g/dL Hct 36.1 L (38.0-50.0) % MCV 92.8 (80.0-98.0) fL MCH 29.3 (27.0-32.0) pg MCHC 31.6 (31.0-37.0) g/dL RDW Std Deviation 51.6 (28.0-62.0) fl RDW Coeff of Rocco 15 (11.0-15.0) % Plt Count 204 (150-400) K/uL MPV 9.90 (7.40-12.00) fL Neut % (Auto) 68.1 (48.0-80.0) % Lymph % (Auto) 21.2 (16.0-40.0) % Lamar % (Auto) 8.6 (0.0-15.0) % Eos % (Auto) 1.8 (0.0-7.0) % Baso % (Auto) 0.3 (0.0-1.5) % Neut # (Auto) 4.7 (1.4-5.7) K/uL Lymph # (Auto) 1.5 (0.6-2.4) K/uL Lamar # (Auto) 0.6 (0.0-0.8) K/uL Eos # (Auto) 0.1 (0.0-0.7) K/uL Baso # (Auto) 0.0 (0.0-0.1) K/uL Nucleated RBC % 0.0 /100WBC Nucleated RBCs # 0 K/uL Sodium 142 (136-148) mmol/L Potassium 4.1 (3.5-5.1) mmol/L Chloride 104 (98-107) mmol/L Carbon Dioxide 31.3 (21.0-32.0) mmol/L BUN 26 H (7.0-18.0) mg/dL Creatinine 1.1 (0.8-1.3) mg/dL Est Cr Clr Drug Dosing 57.29 mL/min Estimated GFR (MDRD) > 60.0 ml/min Glucose 178 H (74-106) mg/dL POC Glucose 348 H (60-110) mg/dL Calcium 8.5 (8.5-10.1) mg/dL 01/01/20 Range/Units 06:39 WBC (4.0-11.0) K/uL RBC (4.50-5.90) M/uL Hgb (13.0-17.0) g/dL Hct (38.0-50.0) % MCV (80.0-98.0) fL MCH (27.0-32.0) pg MCHC (31.0-37.0) g/dL RDW Std Deviation (28.0-62.0) fl RDW Coeff of Rocco (11.0-15.0) % Plt Count (150-400) K/uL MPV (7.40-12.00) fL Neut % (Auto) (48.0-80.0) % Lymph % (Auto) (16.0-40.0) % Lamar % (Auto) (0.0-15.0) % Eos % (Auto) (0.0-7.0) % Baso % (Auto) (0.0-1.5) % Neut # (Auto) (1.4-5.7) K/uL Lymph # (Auto) (0.6-2.4) K/uL Lamar # (Auto) (0.0-0.8) K/uL Eos # (Auto) (0.0-0.7) K/uL Baso # (Auto) (0.0-0.1) K/uL Nucleated RBC % /100WBC Nucleated RBCs # K/uL Sodium (136-148) mmol/L Potassium (3.5-5.1) mmol/L Chloride (98-107) mmol/L Carbon Dioxide (21.0-32.0) mmol/L BUN (7.0-18.0) mg/dL Creatinine (0.8-1.3) mg/dL Est Cr Clr Drug Dosing mL/min Estimated GFR (MDRD) ml/min Glucose (74-106) mg/dL POC Glucose 178 H (60-110) mg/dL Calcium (8.5-10.1) mg/dL CHARLENE Results - Last 24 hrs: Microbiology 12/30/19 12:35 Aerobic Blood Culture - Preliminary Blood - Venous - Lab Draw NO GROWTH AFTER 1 DAY Anaerobic Blood Culture - Preliminary NO GROWTH AFTER 1 DAY 12/30/19 12:26 Aerobic Blood Culture - Preliminary Blood - Venous NO GROWTH AFTER 1 DAY Anaerobic Blood Culture - Final Med Orders - Current: Current Medications Hydrocodone Bitart/Acetaminophen ([place] 325-10 Mg) 1 tab PO TID PRN PRN Reason: Pain Last Admin: 01/01/20 01:45 Dose: 1 tab Albuterol/Ipratropium (Duoneb 3.0-0.5 Mg/3 Ml) 3 ml NEB Q4HRRT [facility] Last Admin: 01/01/20 06:14 Dose: 3 ml Amitriptyline HCl (Elavil) 25 mg PO BEDTIME [facility] Last Admin: 12/31/19 20:37 Dose: 25 mg Aspirin (Halfprin) 81 mg PO DAILY [facility] Last Admin: 01/01/20 08:24 Dose: 81 mg Celecoxib (Celebrex) 100 mg PO DAILY [facility] Last Admin: 01/01/20 08:22 Dose: 100 mg Citalopram Hydrobromide (Celexa) 10 mg PO DAILY [facility] Last Admin: 01/01/20 08:24 Dose: 10 mg Clopidogrel Bisulfate (Plavix) 75 mg PO DAILY [facility] Last Admin: 01/01/20 08:23 Dose: 75 mg Furosemide (Lasix) 40 mg PO DAILY [facility] Last Admin: 01/01/20 08:25 Dose: 40 mg Gabapentin (Neurontin) 300 mg PO BID@12,18 [facility] Last Admin: 12/31/19 17:23 Dose: 300 mg Gabapentin (Neurontin) 600 mg PO BID@08,21 [facility] Last Admin: 01/01/20 08:01 Dose: 600 mg Levofloxacin/Dextrose 750 mg/ (Premix) 150 mls @ 100 mls/hr IV Q24H [facility] Last Admin: 12/31/19 21:22 Dose: 100 mls/hr Vancomycin HCl 1.5 gm/ Premix 300 mls @ 200 mls/hr IV Q12H [facility] Last Admin: 12/31/19 23:08 Dose: 200 mls/hr Pantoprazole Sodium 40 mg/ (Sodium Chloride) 10 mls @ 300 mls/hr IV Q24H [facility] Last Admin: 12/31/19 14:01 Dose: 300 mls/hr Piperacillin Sod/Tazobactam (Sod 4.5 gm/ Sodium Chloride) 100 mls @ 100 mls/hr IV Q6H [facility] Last Admin: 01/01/20 08:02 Dose: 100 mls/hr Insulin Aspart (Novolog) 0 unit SUBCUT WITHMEALSANDBED [facility]; Protocol Last Admin: 01/01/20 07:59 Dose: 3 units Insulin Glargine (Lantus Solostar) 28 units SUBCUT BID [facility] Last Admin: 01/01/20 08:26 Dose: 28 units Loratadine (Claritin) 10 mg PO DAILY [facility] Last Admin: 01/01/20 08:24 Dose: 10 mg Methocarbamol (Methocarbamol) 750 mg PO BEDTIME [facility] Last Admin: 12/31/19 20:56 Dose: Not Given Metoprolol Tartrate (Lopressor) 50 mg PO BID [facility] Last Admin: 01/01/20 08:23 Dose: 50 mg Polyethylene Glycol (Miralax) 17 gm PO BEDTIME [facility] Last Admin: 12/31/19 20:38 Dose: 17 gm Rosuvastatin Calcium (Crestor) 40 mg PO BEDTIME [facility] Last Admin: 12/31/19 20:36 Dose: 40 mg Spironolactone (Aldactone) 50 mg PO DAILY [facility] Last Admin: 01/01/20 08:23 Dose: 50 mg Vancomycin HCl (Pharmacy To Dose - Vancomycin) 1 dose .XX ASDIRECTED [facility] Discontinued Medications Al Hydroxide/Mg Hydroxide (Mag-Al Plus) 30 ml PO ONETIME ONE Stop: 12/30/19 23:18 Last Admin: 12/30/19 23:25 Dose: 30 ml Albuterol/Ipratropium (Duoneb 3.0-0.5 Mg/3 Ml) 3 ml NEB ONETIME ONE Stop: 12/30/19 11:32 Last Admin: 12/30/19 12:05 Dose: 3 ml Albuterol/Ipratropium (Duoneb 3.0-0.5 Mg/3 Ml) 3 ml NEB Q4HRRT PRN PRN Reason: Shortness of Breath Albuterol/Ipratropium (Duoneb 3.0-0.5 Mg/3 Ml) 3 ml NEB ONETIME ONE Stop: 12/31/19 08:02 Last Admin: 12/31/19 08:06 Dose: 3 ml Heparin Sodium (Porcine) (Heparin Sodium) 5,000 units IVPUSH Q12H [facility] Last Admin: 12/30/19 19:33 Dose: Not Given Heparin Sodium (Porcine) (Heparin Sodium) 5,000 units SUBCUT Q12H [facility] Last Admin: 12/30/19 19:49 Dose: 5,000 units Sodium Chloride (Normal Saline) 1,000 mls @ 125 mls/hr IV STAT [facility] Last Admin: 12/30/19 12:26 Dose: 125 mls/hr Piperacillin Sod/Tazobactam (Sod 3.375 gm/ Sodium Chloride) 50 mls @ 100 mls/ hr IV ONETIME ONE Stop: 12/30/19 13:03 Last Admin: 12/30/19 13:15 Dose: 100 mls/hr Vancomycin HCl 1 gm/ Sodium (Chloride) 250 mls @ 166 mls/hr IV ONETIME ONE Stop: 12/30/19 14:04 Last Admin: 12/30/19 14:03 Dose: 166 mls/hr Piperacillin Sod/Tazobactam (Sod 4.5 gm/ Sodium Chloride) 100 mls @ 100 mls/hr IV Q6H [facility] Last Admin: 12/31/19 20:05 Dose: Not Given Vancomycin HCl 1.5 gm/ Sodium (Chloride) 500 mls @ 333.333 mls/hr IV Q12H [facility] Last Admin: 12/30/19 20:18 Dose: Not Given Vancomycin HCl 1 gm/ Sodium (Chloride) 250 mls @ 166 mls/hr IV ONETIME ONE Stop: 12/30/19 21:20 Last Admin: 12/30/19 19:45 Dose: 166 mls/hr Lactated Ringer's (Ringers, Lactated) 1,000 mls @ 999 mls/hr IV .BOLUS ONE Stop: 12/31/19 00:12 Last Admin: 12/30/19 23:44 Dose: 999 mls/hr Lactated Ringer's (Ringers, Lactated) 1,000 mls @ 999 mls/hr IV .BOLUS ONE Stop: 12/31/19 00:13 Last Admin: 12/31/19 01:03 Dose: 999 mls/hr Pantoprazole Sodium 40 mg/ (Sodium Chloride) 10 mls @ 300 mls/hr IV NOW ONE Stop: 12/30/19 23:18 Last Admin: 12/30/19 23:25 Dose: 300 mls/hr Methylprednisolone Sodium Succinate (Solu-Medrol) 125 mg IVPUSH ONETIME ONE Stop: 12/30/19 11:32 Last Admin: 12/30/19 12:27 Dose: 125 mg Pantoprazole Sodium (Protonix) 40 mg PO DAILY [facility] Last Admin: 12/31/19 08:34 Dose: 40 mg Polyethylene Glycol (Miralax) 17 gm PO DAILY [facility] Last Admin: 12/31/19 14:09 Dose: Not Given Vancomycin HCl (Pharmacy To Dose - Vancomycin) 1 dose .XX ASDIRECTED [facility] <Myron Singh - Last Filed: 01/05/20 13:56> Discharge Summary - Referral to Home Health Date of Face to Face Encounter: 01/01/20 Reason for Homebound Status: resume home health Primary Care Physician: Javi Dobbs NP Skilled Need: resume home health - Patient Summary/Data Consults: Consultations 12/30/19 23:14 Consult to Speech Language Pathology [FOREIGN CORRESPONDENT Evaluation and Treatment] [CONS] Routine - Patient Data Vitals - Most Recent: Last Vital Signs Temp 35.9 C 01/01/20 12:38 Pulse 99 01/01/20 12:38 Resp 16 01/01/20 12:38 BP 118/58 L 01/01/20 12:38 Pulse Ox 97 01/01/20 12:38 CHARLENE Results - Last 24 hrs: Microbiology 12/30/19 12:35 Aerobic Blood Culture - Final Blood - Venous - Lab Draw NO GROWTH AFTER 5 DAYS Anaerobic Blood Culture - Final NO GROWTH AFTER 5 DAYS 12/30/19 12:26 Aerobic Blood Culture - Final Blood - Venous NO GROWTH AFTER 5 DAYS Anaerobic Blood Culture - Final Med Orders - Current: Current Medications Discontinued Medications Hydrocodone Bitart/Acetaminophen ([place] 325-10 Mg) 1 tab PO TID PRN PRN Reason: Pain Last Admin: 01/01/20 09:22 Dose: 1 tab Al Hydroxide/Mg Hydroxide (Mag-Al Plus) 30 ml PO ONETIME ONE Stop: 12/30/19 23:18 Last Admin: 12/30/19 23:25 Dose: 30 ml Albuterol/Ipratropium (Duoneb 3.0-0.5 Mg/3 Ml) 3 ml NEB ONETIME ONE Stop: 12/30/19 11:32 Last Admin: 12/30/19 12:05 Dose: 3 ml Albuterol/Ipratropium (Duoneb 3.0-0.5 Mg/3 Ml) 3 ml NEB Q4HRRT PRN PRN Reason: Shortness of Breath Albuterol/Ipratropium (Duoneb 3.0-0.5 Mg/3 Ml) 3 ml NEB Q4HRRT [facility] Last Admin: 01/01/20 10:03 Dose: 3 ml Albuterol/Ipratropium (Duoneb 3.0-0.5 Mg/3 Ml) 3 ml NEB ONETIME ONE Stop: 12/31/19 08:02 Last Admin: 12/31/19 08:06 Dose: 3 ml Amitriptyline HCl (Elavil) 25 mg PO BEDTIME [facility] Last Admin: 12/31/19 20:37 Dose: 25 mg Aspirin (Halfprin) 81 mg PO DAILY [facility] Last Admin: 01/01/20 08:24 Dose: 81 mg Celecoxib (Celebrex) 100 mg PO DAILY [facility] Last Admin: 01/01/20 08:22 Dose: 100 mg Citalopram Hydrobromide (Celexa) 10 mg PO DAILY [facility] Last Admin: 01/01/20 08:24 Dose: 10 mg Clopidogrel Bisulfate (Plavix) 75 mg PO DAILY [facility] Last Admin: 01/01/20 08:23 Dose: 75 mg Furosemide (Lasix) 40 mg PO DAILY [facility] Last Admin: 01/01/20 08:25 Dose: 40 mg Gabapentin (Neurontin) 300 mg PO BID@12,18 [facility] Last Admin: 12/31/19 17:23 Dose: 300 mg Gabapentin (Neurontin) 600 mg PO BID@08,21 [facility] Last Admin: 01/01/20 08:01 Dose: 600 mg Heparin Sodium (Porcine) (Heparin Sodium) 5,000 units IVPUSH Q12H [facility] Last Admin: 12/30/19 19:33 Dose: Not Given Heparin Sodium (Porcine) (Heparin Sodium) 5,000 units SUBCUT Q12H [facility] Last Admin: 12/30/19 19:49 Dose: 5,000 units Sodium Chloride (Normal Saline) 1,000 mls @ 125 mls/hr IV STAT [facility] Last Admin: 12/30/19 12:26 Dose: 125 mls/hr Piperacillin Sod/Tazobactam (Sod 3.375 gm/ Sodium Chloride) 50 mls @ 100 mls/ hr IV ONETIME ONE Stop: 12/30/19 13:03 Last Admin: 12/30/19 13:15 Dose: 100 mls/hr Vancomycin HCl 1 gm/ Sodium (Chloride) 250 mls @ 166 mls/hr IV ONETIME ONE Stop: 12/30/19 14:04 Last Admin: 12/30/19 14:03 Dose: 166 mls/hr Levofloxacin/Dextrose 750 mg/ (Premix) 150 mls @ 100 mls/hr IV Q24H [facility] Last Admin: 12/31/19 21:22 Dose: 100 mls/hr Piperacillin Sod/Tazobactam (Sod 4.5 gm/ Sodium Chloride) 100 mls @ 100 mls/hr IV Q6H [facility] Last Admin: 12/31/19 20:05 Dose: Not Given Vancomycin HCl 1.5 gm/ Sodium (Chloride) 500 mls @ 333.333 mls/hr IV Q12H [facility] Last Admin: 12/30/19 20:18 Dose: Not Given Vancomycin HCl 1.5 gm/ Premix 300 mls @ 200 mls/hr IV Q12H [facility] Last Admin: 01/01/20 11:02 Dose: 200 mls/hr Vancomycin HCl 1 gm/ Sodium (Chloride) 250 mls @ 166 mls/hr IV ONETIME ONE Stop: 12/30/19 21:20 Last Admin: 12/30/19 19:45 Dose: 166 mls/hr Lactated Ringer's (Ringers, Lactated) 1,000 mls @ 999 mls/hr IV .BOLUS ONE Stop: 12/31/19 00:12 Last Admin: 12/30/19 23:44 Dose: 999 mls/hr Lactated Ringer's (Ringers, Lactated) 1,000 mls @ 999 mls/hr IV .BOLUS ONE Stop: 12/31/19 00:13 Last Admin: 12/31/19 01:03 Dose: 999 mls/hr Pantoprazole Sodium 40 mg/ (Sodium Chloride) 10 mls @ 300 mls/hr IV NOW ONE Stop: 12/30/19 23:18 Last Admin: 12/30/19 23:25 Dose: 300 mls/hr Pantoprazole Sodium 40 mg/ (Sodium Chloride) 10 mls @ 300 mls/hr IV Q24H [facility] Last Admin: 01/01/20 13:01 Dose: Not Given Piperacillin Sod/Tazobactam (Sod 4.5 gm/ Sodium Chloride) 100 mls @ 100 mls/hr IV Q6H [facility] Last Admin: 01/01/20 08:02 Dose: 100 mls/hr Insulin Aspart (Novolog) 0 unit SUBCUT WITHMEALSANDBED [facility]; Protocol Last Admin: 01/01/20 07:59 Dose: 3 units Insulin Glargine (Lantus Solostar) 28 units SUBCUT BID [facility] Last Admin: 01/01/20 08:26 Dose: 28 units Loratadine (Claritin) 10 mg PO DAILY [facility] Last Admin: 01/01/20 08:24 Dose: 10 mg Methocarbamol (Methocarbamol) 750 mg PO BEDTIME [facility] Last Admin: 12/31/19 20:56 Dose: Not Given Methylprednisolone Sodium Succinate (Solu-Medrol) 125 mg IVPUSH ONETIME ONE Stop: 12/30/19 11:32 Last Admin: 12/30/19 12:27 Dose: 125 mg Metoprolol Tartrate (Lopressor) 50 mg PO BID [facility] Last Admin: 01/01/20 08:23 Dose: 50 mg Pantoprazole Sodium (Protonix) 40 mg PO DAILY [facility] Last Admin: 12/31/19 08:34 Dose: 40 mg Polyethylene Glycol (Miralax) 17 gm PO DAILY [facility] Last Admin: 12/31/19 14:09 Dose: Not Given Polyethylene Glycol (Miralax) 17 gm PO BEDTIME [facility] Last Admin: 12/31/19 20:38 Dose: 17 gm Rosuvastatin Calcium (Crestor) 40 mg PO BEDTIME [facility] Last Admin: 12/31/19 20:36 Dose: 40 mg Spironolactone (Aldactone) 50 mg PO DAILY [facility] Last Admin: 01/01/20 08:23 Dose: 50 mg Vancomycin HCl (Pharmacy To Dose - Vancomycin) 1 dose .XX ASDIRECTED [facility] Vancomycin HCl (Pharmacy To Dose - Vancomycin) 1 dose .XX ASDIRECTED [facility] - Free Text/Narrative Note: I have seen and evaluated the patient with the resident. I have discussed findings and treatment plan with the resident. I agree with the assessment and plan in the following note.
[2020-01-01] MEDS: Pantoprazole 40 MG in Sodium Chloride 0.9% 10 ML IV SCH (13:01)
== END 2020-01-01 12:30 | disposition home health service (06) | DRG 177 ==
LOC: MW.ED 11:27 → MW.MS 13:32
PROVIDERS: ADMIT Student in an Organized Health Care Education/Training Program; ATTEND Student in an Organized Health Care Education/Training Program
DX: J18.9 Pneumonia, unspecified organism (principal); H54.7 Unspecified visual loss; H91.93 Unspecified hearing loss, bilateral; Z95.5 Presence of coronary angioplasty implant and graft; J44.9 Chronic obstructive pulmonary disease, unspecified; F32.9 Major depressive disorder, single episode, unspecified; F41.9 Anxiety disorder, unspecified; J69.0 Pneumonitis due to inhalation of food and vomit; Z88.8 Allergy status to other drugs, medicaments and biological substances; Z79.82 Long term (current) use of aspirin; Z79.4 Long term (current) use of insulin; Z79.899 Other long term (current) drug therapy; J96.01 Acute respiratory failure with hypoxia; J44.0 Chronic obstructive pulmonary disease with (acute) lower respiratory infection; I25.10 Atherosclerotic heart disease of native coronary artery without angina pectoris; I11.0 Hypertensive heart disease with heart failure; I50.9 Heart failure, unspecified; Z66 Do not resuscitate; G89.29 Other chronic pain; E11.9 Type 2 diabetes mellitus without complications; J15.6 Pneumonia due to other Gram-negative bacteria; K64.9 Unspecified hemorrhoids; F41.0 Panic disorder [episodic paroxysmal anxiety]; E78.5 Hyperlipidemia, unspecified; Z87.891 Personal history of nicotine dependence
CPT/HCPCS: 36415; 71045; 80053; 84484; 85025; 85610; 87040 ×2; 87804 ×2; 93005; 94640; 96365; 96375; 99285; J2543; J2930; J7030; J7050; 80048; 81003; 82272; 82962; 83605; 85014; 85018; 87070; 87205; 92610-GN; 99283; A9270-GY; C9113; J1644; J1815-GY; J1956; J3370; J7120; J7620-GY

== ENCOUNTER 2020-01-27 15:03 | Inpatient (IN) | payer OTHER, MEDICARE ==
[2020-01-27] MEDS ORDERED: Albuterol/Ipratropium 3.0-0.5 MG/3 ML Neb Soln NEB ONE ×2 (15:16→15:26)
[2020-01-27] MEDS ORDERED: Magnesium Sulfate/Water 2 GM in Premix Bag 1 BAG IV ONE (15:28)
[2020-01-27] MEDS ORDERED: methylPREDNISolone Sodium Succinate 125 MG/2 ML SDV IVPUSH ONE (15:29)
--- NOTE | 2020-01-27 15:31 | EDM.PDOC ---
ED HPI GENERAL MEDICAL PROBLEM - General Chief Complaint: Respiratory Problem Stated Complaint: SOB Time Seen by Provider: 01/27/20 15:15 Source of Information: Reports: Patient History Limitations: Reports: No Limitations - History of Present Illness INITIAL COMMENTS - FREE TEXT/NARRATIVE: This 79 year old male with history of COPD is admitted to the ED with a chief complaint of SOB and wheezing for the past two days. He states that his home medications are not working. He states that it is getting worse. He denies any chest pain, nausea or vomiting. He denies any other complaints at this time. Severity: Moderate (wheezing and SOB) bilateral feet Pain Score (Numeric/FACES): 5 - Related Data Allergies Allergy/AdvReac Type Severity Reaction Status Date / Time atorvastatin Allergy Other Verified 01/27/20 15:05 bupropion [From Wellbutrin] Allergy Other Verified 01/27/20 15:05 duloxetine HCl Allergy Rash Verified 01/27/20 15:05 [From Cymbalta] Iodinated Contrast Media Allergy Other Verified 01/27/20 15:05 meloxicam Allergy Other Verified 01/27/20 15:05 metformin Allergy Other Verified 01/27/20 15:05 naproxen Allergy Other Verified 01/27/20 15:05 paroxetine Allergy Other Verified 01/27/20 15:05 sertraline HCl [From Zoloft] Allergy Rash Verified 01/27/20 15:05 venlafaxine [From Effexor] Allergy oth Verified 01/27/20 15:05 Home Meds: Home Meds Albuterol Sulfate [Albuterol Sulfate Hfa] 2 inh IH Q6H PRN 10/13/19 [History] Albuterol/Ipratropium [DuoNeb 3.0-0.5 MG/3 ML] 3 ml NEB Q6H 10/13/19 [History] Aspirin [Ecotrin EC] 81 mg PO DAILY 10/13/19 [History] Budesonide/Formoterol Fumarate [Symbicort 160-4.5 Mcg Inhaler] 2 inh IH Q12H [History] Citalopram [Citalopram HBr] 10 mg PO DAILY 10/13/19 [History] Clopidogrel [Plavix] 75 mg PO DAILY 10/13/19 [History] Diclofenac Sodium [Voltaren 1% Gel] 4 gm TOP QID PRN MDD total body dose 32gm max 10/13/19 [History] Hydrocodone/Acetaminophen [[place] 10-325 Tablet] 10 - 325 mg PO TID PRN 10/13/19 [History] Insulin Aspart [NovoLOG] 12 unit SUBCUT BID@,12 10/13/19 [History] Insulin Aspart [NovoLOG] 15 unit SUBCUT WITHDINNER 10/13/19 [History] Insulin Glarg,Human.Rec.Analog [Lantus Solostar] 28 unit SUBCUT BID 10/13/19 [ History] Lidocaine 5% [Lidoderm 5%] 2 patch TD .ON 12 HR, OFF 12 HR 10/13/19 [History] Metoprolol Tartrate 50 mg PO BID 10/13/19 [History] Cameron-3/DHA/Epa/Fish Oil [Fish Oil 1,000 mg Softgel] 1,000 mg PO BID 10/13/19 [ History] Pantoprazole [ProTONIX] 40 mg PO DAILY 10/13/19 [History] Rosuvastatin Calcium [Crestor] 40 mg PO BEDTIME 10/13/19 [History] Spironolactone [Aldactone] 50 mg PO DAILY 10/13/19 [History] metFORMIN HCl [Metformin HCl ER] 750 mg PO BID 10/13/19 [History] polyethylene glycoL 3350 [MiraLAX] 17 gm PO DAILY 10/13/19 [History] Albuterol [Proventil Neb Soln] 2.5 mg INH QID 12/30/19 [History] Amitriptyline [Elavil] 25 mg PO BEDTIME 12/30/19 [History] Celecoxib 100 mg PO DAILY 12/30/19 [History] Furosemide 40 mg PO DAILY 12/30/19 [History] Gabapentin [Neurontin] 300 mg PO BID@,18 12/30/19 [History] Gabapentin [Neurontin] 600 mg PO BID@,12/30/19 [History] Loratadine 10 mg PO DAILY 12/30/19 [History] Methocarbamol [Robaxin-750] 750 mg PO BEDTIME 12/30/19 [History] Tiotropium [Spiriva HandiHaler] 18 mcg INH DAILY 12/30/19 [History] hydrOXYzine HCL [hydrOXYzine] 25 mg PO QID PRN 12/30/19 [History] Levofloxacin [Levaquin] 750 mg PO DAILY 7 Days #7 tablet 01/01/20 [Rx] Past Medical History HEENT History: Reports: None Other HEENT History: glasses and hearing aides Cardiovascular History: Reports: CAD, Heart Failure, High Cholesterol, Hypertension, [place], Stents Respiratory History: Reports: Asthma, COPD Other Respiratory History: states may need cpap but does not have one. Gastrointestinal History: Reports: Diverticulosis, Gastritis, GERD Genitourinary History: Reports: None Musculoskeletal History: Reports: Arthritis, Back Pain, Chronic Neurological History: Reports: None Psychiatric History: Reports: Anxiety, Depression, Panic Attack, PTSD Endocrine/Metabolic History: Reports: Diabetes, Type II Hematologic History: Reports: None Immunologic History: Reports: None Oncologic (Cancer) History: Reports: None Dermatologic History: Reports: None - Infectious Disease History Infectious Disease History: Reports: None - Past Surgical History Head Surgeries/Procedures: Reports: None HEENT Surgical History: Reports: None Cardiovascular Surgical History: Reports: Other (See Below) Other Cardiovascular Surgeries/Procedures: 2004 2017 Respiratory Surgical History: Reports: None GI Surgical History: Reports: Colonoscopy Male Surgical History: Reports: None Endocrine Surgical History: Reports: None Neurological Surgical History: Reports: None Musculoskeletal Surgical History: Reports: None Oncologic Surgical History: Reports: None Dermatological Surgical History: Reports: None Social & Family History - Family History Family Medical History: Noncontributory - Tobacco Use Smoking Status *Q: Former Smoker Used Tobacco, but Quit: Yes Month/Year Tobacco Last Used: 20 years - Caffeine Use Caffeine Use: Reports: None - Recreational Drug Use Recreational Drug Use: No ED ROS GENERAL - Review of Systems Review Of Systems: See Below Constitutional: Reports: Diaphoresis HEENT: Reports: No Symptoms Respiratory: Reports: Shortness of Breath, Wheezing, Cough (green sputum). Denies: Hemoptysis Cardiovascular: Reports: No Symptoms Endocrine: Reports: No Symptoms GI/Abdominal: Reports: No Symptoms : Reports: No Symptoms Musculoskeletal: Reports: No Symptoms Skin: Reports: No Symptoms Neurological: Reports: No Symptoms Psychiatric: Reports: No Symptoms ED EXAM, GENERAL - Physical Exam Exam: See Below Exam Limited By: No Limitations General Appearance: Alert, WD/WN, Moderate Distress (respiratory distress) Eye Exam: Bilateral Eye: EOMI, Normal Inspection, PERRL Ears: Normal External Exam, Normal Canal, Hearing Grossly Normal, Normal TMs Ear Exam: Bilateral Ear: Auricle Normal, Canal Normal, TM normal Nose: Normal Inspection, Normal Mucosa, No Blood Throat/Mouth: Normal Inspection, Normal Lips, Normal Teeth, Normal Gums, Normal Oropharynx, Normal Voice, No Airway Compromise, Other (mucosa is somewhat dry) Head: Atraumatic, Normocephalic Neck: Normal Inspection, Supple, Non-Tender, Full Range of Motion Respiratory/Chest: Respiratory Distress (moderate), Wheezing (through out all lung cassidy), Prolonged Expiration (very prolonged) Cardiovascular: Regular Rate, Rhythm, No Edema, No JVD, Tachycardia, Systolic Murmur (systolic ejection murmur grade 2/6 best heard at the base without radiation of murmur.). No: Gallop/S3, Gallop/S4, Friction Rub Peripheral Pulses: 2+: Dorsalis Pedis (L), 3+: Carotid (L), Carotid (R), Radial (L), Radial (R), Dorsalis Pedis (R) GI/Abdominal: Normal Bowel Sounds, Soft, Non-Tender, No Organomegaly, No Distention, No Abnormal Bruit, No Mass, Other (morbid obesity) (Male) Exam: Deferred Rectal (Males) Exam: Deferred Back Exam: Normal Inspection Extremities: Normal Inspection, Non-Tender, No Pedal Edema, Normal Capillary Refill Neurological: Alert, Oriented (times four), CN II-XII Intact, Normal Cognition, Normal Reflexes, No Motor/Sensory Deficits Psychiatric: Normal Affect, Normal Mood Skin Exam: Warm, Dry, Intact, No Rash, Other (slightly adán) Lymphatic: No Adenopathy Course - Vital Signs Text/Narrative:: I talked with Dr. Singh regarding this patient. I went over all of his diagnostic test. He will be admitted to OBS/Tele. The patient agrees with the admission plan. Last Recorded V/S: Last Vital Signs Temp 97.4 F 01/27/20 15:05 Pulse 106 H 01/27/20 16:15 Resp 20 01/27/20 16:15 BP 126/70 01/27/20 16:15 Pulse Ox 97 01/27/20 16:15 - Orders/Labs/Meds Orders: Active Orders 24 hr Category Date Time Status EKG Documentation Completion [RC] STAT Care 01/27/20 15:15 Active EKG Documentation Completion [RC] STAT Care 01/27/20 15:16 Inactive RT Aerosol Therapy [RC] ASDIRECTED Care 01/27/20 15:16 Active RT Aerosol Therapy [RC] ASDIRECTED Care 01/27/20 15:27 Active CULTURE BLOOD [BC] Stat Lab 01/27/20 15:10 Received CULTURE BLOOD [BC] Stat Lab 01/27/20 15:30 Received UA RFX CHARLENE AND CULT IF INDIC [URIN] Stat Lab 01/27/20 15:15 Ordered Blood Culture x2 Reflex Set [OM.PC] Stat Oth 01/27/20 15:15 Ordered Labs: Laboratory Tests 01/27/20 01/27/20 01/27/20 Range/Units 15:10 15:10 15:10 WBC 10.98 (4.0-11.0) K/uL RBC 4.42 L (4.50-5.90) M/uL Hgb 13.3 (13.0-17.0) g/dL Hct 42.8 (38.0-50.0) % MCV 96.8 (80.0-98.0) fL MCH 30.1 (27.0-32.0) pg MCHC 31.1 (31.0-37.0) g/dL RDW Std Deviation 51.9 (28.0-62.0) fl RDW Coeff of Rocco 15 (11.0-15.0) % Plt Count 211 (150-400) K/uL MPV 10.40 (7.40-12.00) fL Neut % (Auto) 74.8 (48.0-80.0) % Lymph % (Auto) 17.0 (16.0-40.0) % [place] % (Auto) 6.0 (0.0-15.0) % Eos % (Auto) 2.0 (0.0-7.0) % Baso % (Auto) 0.2 (0.0-1.5) % Neut # (Auto) 8.2 H (1.4-5.7) K/uL Lymph # (Auto) 1.9 (0.6-2.4) K/uL [place] # (Auto) 0.7 (0.0-0.8) K/uL Eos # (Auto) 0.2 (0.0-0.7) K/uL Baso # (Auto) 0.0 (0.0-0.1) K/uL Nucleated RBC % 0.0 /100WBC Nucleated RBCs # 0 K/uL Lactate (0.20-2.00) mmol/L Sodium 140 (136-148) mmol/L Potassium 5.2 H (3.5-5.1) mmol/L Chloride 101 (98-107) mmol/L Carbon Dioxide 33.1 H (21.0-32.0) mmol/L BUN 24 H (7.0-18.0) mg/dL Creatinine 1.1 (0.8-1.3) mg/dL Est Cr Clr Drug Dosing 58.95 mL/min Estimated GFR (MDRD) > 60.0 ml/min Glucose 292 H (74-106) mg/dL Calcium 9.5 (8.5-10.1) mg/dL Magnesium 1.4 L (1.8-2.4) mg/dL Total Bilirubin 0.4 (0.2-1.0) mg/dL AST 18 (15-37) IU/L ALT 22 (14-63) IU/L Alkaline Phosphatase 85 (46-116) U/L Troponin I < 0.050 (0.000-0.056) ng/mL B-Natriuretic Peptide 64 (<100) PG/ML Total Protein 7.7 (6.4-8.2) g/dL Albumin 3.3 L (3.4-5.0) g/dL Globulin 4.4 H (2.6-4.0) g/dL Albumin/Globulin Ratio 0.8 L (0.9-1.6) 01/27/20 Range/Units 15:10 WBC (4.0-11.0) K/uL RBC (4.50-5.90) M/uL Hgb (13.0-17.0) g/dL Hct (38.0-50.0) % MCV (80.0-98.0) fL MCH (27.0-32.0) pg MCHC (31.0-37.0) g/dL RDW Std Deviation (28.0-62.0) fl RDW Coeff of Rocco (11.0-15.0) % Plt Count (150-400) K/uL MPV (7.40-12.00) fL Neut % (Auto) (48.0-80.0) % Lymph % (Auto) (16.0-40.0) % [place] % (Auto) (0.0-15.0) % Eos % (Auto) (0.0-7.0) % Baso % (Auto) (0.0-1.5) % Neut # (Auto) (1.4-5.7) K/uL Lymph # (Auto) (0.6-2.4) K/uL [place] # (Auto) (0.0-0.8) K/uL Eos # (Auto) (0.0-0.7) K/uL Baso # (Auto) (0.0-0.1) K/uL Nucleated RBC % /100WBC Nucleated RBCs # K/uL Lactate 1.8 (0.20-2.00) mmol/L Sodium (136-148) mmol/L Potassium (3.5-5.1) mmol/L Chloride (98-107) mmol/L Carbon Dioxide (21.0-32.0) mmol/L BUN (7.0-18.0) mg/dL Creatinine (0.8-1.3) mg/dL Est Cr Clr Drug Dosing mL/min Estimated GFR (MDRD) ml/min Glucose (74-106) mg/dL Calcium (8.5-10.1) mg/dL Magnesium (1.8-2.4) mg/dL Total Bilirubin (0.2-1.0) mg/dL AST (15-37) IU/L ALT (14-63) IU/L Alkaline Phosphatase (46-116) U/L Troponin I (0.000-0.056) ng/mL B-Natriuretic Peptide (<100) PG/ML Total Protein (6.4-8.2) g/dL Albumin (3.4-5.0) g/dL Globulin (2.6-4.0) g/dL Albumin/Globulin Ratio (0.9-1.6) Meds: Medications Discontinued Medications Generic Name Dose Route Start Last Admin Trade Name Freq PRN Reason Stop Dose Admin Hydrocodone Bitart/Acetaminophen 1 tab 01/27/20 16:12 01/27/20 16:17 [place] 325-7.5 Mg PO 01/27/20 16:13 1 tab STAT ONE Administration Albuterol/Ipratropium 3 ml 01/27/20 15:16 01/27/20 15:24 Duoneb 3.0-0.5 Mg/3 Ml NEB 01/27/20 15:17 3 ml ONETIME ONE Administration Albuterol/Ipratropium 3 ml 01/27/20 15:26 01/27/20 15:35 Duoneb 3.0-0.5 Mg/3 Ml NEB 01/27/20 15:27 3 ml ONETIME ONE Administration Magnesium Sulfate 2 gm/ Premix 50 mls @ 50 mls/hr 01/27/20 15:28 01/27/20 15: 58 IV 01/27/20 16:27 Not Given ONETIME ONE Magnesium Sulfate 1 gm/ Sodium 52 mls @ 104 mls/hr 01/27/20 16:00 01/27/20 16 :07 Chloride IV 01/27/20 16:29 104 mls/hr ONETIME ONE Administration Methylprednisolone Sodium Succinate 125 mg 01/27/20 15:29 01/27/20 15:41 Solu-Medrol IVPUSH 01/27/20 15:30 125 mg ONETIME ONE Administration Departure - Departure Time of Disposition: 16:35 Disposition: Refer to Observation Condition: Fair Clinical Impression: COPD exacerbation - Discharge Information *PRESCRIPTION DRUG MONITORING PROGRAM REVIEWED*: Yes *COPY OF PRESCRIPTION DRUG MONITORING REPORT IN PATIENT MARK: Yes Referrals: Javi Dobbs, SCALE TECHNICIAN [Primary Care Provider] - Forms: ED Department Discharge Sepsis Event Note - Evaluation Sepsis Screening Result: Possible Sepsis Risk - Focused Exam Vital Signs: Vital Signs Temp Pulse Resp BP Pulse Ox 01/27/20 16:15 106 H 20 126/70 97 01/27/20 15:45 107 H 22 H 130/82 99 01/27/20 15:20 110 H 24 H 133/80 98 01/27/20 15:05 97.4 F 108 H 30 H 155/92 H 100 Date Exam was Performed: 01/27/20 Time Exam was Performed: 16:33 - My Orders Last 24 Hours: My Active Orders 01/27/20 15:10 CULTURE BLOOD [BC] Stat 01/27/20 15:15 EKG Documentation Completion [RC] STAT UA RFX CHARLENE AND CULT IF INDIC [URIN] Stat Blood Culture x2 Reflex Set [OM.PC] Stat 01/27/20 15:16 EKG Documentation Completion [RC] STAT RT Aerosol Therapy [RC] ASDIRECTED 01/27/20 15:27 RT Aerosol Therapy [RC] ASDIRECTED 01/27/20 15:30 CULTURE BLOOD [BC] Stat - Assessment/Plan Last 24 Hours: My Active Orders 01/27/20 15:10 CULTURE BLOOD [BC] Stat 01/27/20 15:15 EKG Documentation Completion [RC] STAT UA RFX CHARLENE AND CULT IF INDIC [URIN] Stat Blood Culture x2 Reflex Set [OM.PC] Stat 01/27/20 15:16 EKG Documentation Completion [RC] STAT RT Aerosol Therapy [RC] ASDIRECTED 01/27/20 15:27 RT Aerosol Therapy [RC] ASDIRECTED 01/27/20 15:30 CULTURE BLOOD [BC] Stat
--- NOTE | 2020-01-27 15:49 | CR ---
Chest: Portable view of the chest was obtained. Comparison: Prior chest x-ray of 12/30/19. Increased density is seen on both sides of the chest. Findings are believed to be fairly stable from previous exam when allowing for differences in inspiration. Left heart is silhouetted but felt to be enlarged. Upper mediastinum is widened which is felt to be chronic. Bony structures are grossly intact. Impression: 1. Multiple findings as noted above. No definite change is seen when allowing for differences in inspiration from prior chest x-ray. Diagnostic code #3 This report was dictated in [place] Standard Time
[2020-01-27 16:01] LABS: BLOOD UREA NITROGEN,BUN 24 mg/dL (7.0-18.0); CARBON DIOXIDE,CO2 33.1 mmol/L (21.0-32.0); CHLORIDE,CL 101 mmol/L (98-107); GLUCOSE RANDOM 292 mg/dL (74-106); POTASSIUM,K 5.2 mmol/L (3.5-5.1); SODIUM,NA 140 mmol/L (136-148)
[2020-01-27] MEDS ORDERED: Acetaminophen/HYDROcodone 325-7.5 MG Tab PO ONE (16:12)
[2020-01-27] MEDS ORDERED: Docusate Sodium 100 MG Cap PO PRN (18:09)
[2020-01-27] MEDS ORDERED: Ondansetron 4 MG Tab.DIS PO PRN (18:09)
[2020-01-27] MEDS ORDERED: Polyethylene Glycol 3350 Powder 17 GM Packet PO PRN (18:09)
[2020-01-27] MEDS ORDERED: Magnesium Hydroxide 400 MG/5 ML Susp 30 ML Cup PO PRN (18:09)
[2020-01-27] MEDS ORDERED: Lactated Ringers 1,000 ML IV ONE (18:09)
[2020-01-27] MEDS ORDERED: Ondansetron 4 MG/2 ML SDV IVPUSH PRN (18:09)
--- NOTE | 2020-01-27 18:28 | PCM.HP.2 ---
H&P History of Present Illness - General Date of Service: 01/27/20 Admit Problem/Dx: Admission Diagnosis/Problem Admission Diagnosis/Problem COPD, Moderate chronic obstructive pulmonary disease - History of Present Illness Initial Comments - Free Text/Narative: 79 y/o male with history of COPD, DM2, CAD who presented to the ER form [facility] for worsening shortness of breath. Per patient and family member, he was at [facility] today to get a swallow study when his portable O2 machine stopped working. That's when he started to get short of breath and went to Clinic. In addition, he has been using his nebulizer more often for the past couple of days. States he used his nebulizer more than 8 times yesterday. No cough, fever , chest pain, abdominal pain, dysuria. He did endorse some diarrhea about 1 week ago, now resolved and now complaining of constipation. No bloody stools or worsening swelling in his extremities. He uses home O2 at 2-3 L/min. bilateral feet Pain Score (Numeric/FACES): 5 - Related Data Allergies/Adverse Reactions: Allergies Allergy/AdvReac Type Severity Reaction Status Date / Time atorvastatin Allergy Other Verified 01/27/20 15:05 bupropion [From Wellbutrin] Allergy Other Verified 01/27/20 15:05 duloxetine HCl Allergy Rash Verified 01/27/20 15:05 [From Cymbalta] Iodinated Contrast Media Allergy Other Verified 01/27/20 15:05 meloxicam Allergy Other Verified 01/27/20 15:05 metformin Allergy Other Verified 01/27/20 15:05 naproxen Allergy Other Verified 01/27/20 15:05 paroxetine Allergy Other Verified 01/27/20 15:05 sertraline HCl [From Zoloft] Allergy Rash Verified 01/27/20 15:05 venlafaxine [From Effexor] Allergy oth Verified 01/27/20 15:05 Home Medications: Home Meds Albuterol Sulfate [Albuterol Sulfate Hfa] 2 inh IH Q6H PRN 10/13/19 [History] Albuterol/Ipratropium [DuoNeb 3.0-0.5 MG/3 ML] 3 ml NEB Q6H 10/13/19 [History] Aspirin [Ecotrin EC] 81 mg PO DAILY 10/13/19 [History] Budesonide/Formoterol Fumarate [Symbicort 160-4.5 Mcg Inhaler] 2 inh IH Q12H [History] Citalopram [Citalopram HBr] 10 mg PO DAILY 10/13/19 [History] Clopidogrel [Plavix] 75 mg PO DAILY 10/13/19 [History] Diclofenac Sodium [Voltaren 1% Gel] 4 gm TOP QID PRN MDD total body dose 32gm max 10/13/19 [History] Hydrocodone/Acetaminophen [[place] 10-325 Tablet] 10 - 325 mg PO TID PRN 10/13/19 [History] Insulin Aspart [NovoLOG] 12 unit SUBCUT BID@,12 10/13/19 [History] Insulin Aspart [NovoLOG] 15 unit SUBCUT WITHDINNER 10/13/19 [History] Insulin Glarg,Human.Rec.Analog [Lantus Solostar] 28 unit SUBCUT BID 10/13/19 [ History] Lidocaine 5% [Lidoderm 5%] 2 patch TD .ON 12 HR, OFF 12 HR 10/13/19 [History] Metoprolol Tartrate 50 mg PO BID 10/13/19 [History] [place]-3/DHA/Epa/Fish Oil [Fish Oil 1,000 mg Softgel] 1,000 mg PO BID 10/13/19 [ History] Pantoprazole [ProTONIX] 40 mg PO ACBREAKFAST 10/13/19 [History] Rosuvastatin Calcium [Crestor] 40 mg PO BEDTIME 10/13/19 [History] Spironolactone [Aldactone] 50 mg PO DAILY 10/13/19 [History] metFORMIN HCl [Metformin HCl ER] 1,000 mg PO BID 10/13/19 [History] polyethylene glycoL 3350 [MiraLAX] 17 gm PO DAILY 10/13/19 [History] Furosemide 40 mg PO DAILY 12/30/19 [History] Gabapentin [Neurontin] 600 mg PO ASDIRECTED 12/30/19 [History] Alogliptin Benzoate [Alogliptin] 25 mg PO DAILY 01/27/20 [History] Meloxicam 15 mg PO WITHBREAKFAST 01/27/20 [History] Past Medical History HEENT History: Reports: None Other HEENT History: glasses and hearing aides Cardiovascular History: Reports: CAD, Heart Failure, High Cholesterol, Hypertension, AR, Stents Respiratory History: Reports: Asthma, COPD Other Respiratory History: states may need cpap but does not have one. Gastrointestinal History: Reports: Diverticulosis, Gastritis, GERD Genitourinary History: Reports: None Musculoskeletal History: Reports: Arthritis, Back Pain, Chronic Neurological History: Reports: None Psychiatric History: Reports: Anxiety, Depression, Panic Attack, PTSD Endocrine/Metabolic History: Reports: Diabetes, Type II Hematologic History: Reports: None Immunologic History: Reports: None Oncologic (Cancer) History: Reports: None Dermatologic History: Reports: None - Infectious Disease History Infectious Disease History: Reports: None - Past Surgical History Head Surgeries/Procedures: Reports: None HEENT Surgical History: Reports: None Cardiovascular Surgical History: Reports: Other (See Below) Other Cardiovascular Surgeries/Procedures: 2004 2017 Respiratory Surgical History: Reports: None GI Surgical History: Reports: Colonoscopy Male Surgical History: Reports: None Endocrine Surgical History: Reports: None Neurological Surgical History: Reports: None Musculoskeletal Surgical History: Reports: None Oncologic Surgical History: Reports: None Dermatological Surgical History: Reports: None Social & Family History - Family History Family Medical History: Noncontributory - Tobacco Use Smoking Status *Q: Former Smoker Used Tobacco, but Quit: Yes Month/Year Tobacco Last Used: 20 years ago - Caffeine Use Caffeine Use: Reports: None - Recreational Drug Use Recreational Drug Use: No H&P Review of Systems - Review of Systems: Review Of Systems: Comprehensive ROS is negative, except as noted in HPI. Exam - Exam Exam: See Below - Vital Signs Vital Signs: Last Vital Signs Temp 36.4 C 01/27/20 17:33 Pulse 101 H 01/27/20 17:33 Resp 18 01/27/20 17:33 BP 132/69 01/27/20 17:33 Pulse Ox 94 L 01/27/20 18:09 Weight: 111 kg - Exam General: Alert, Oriented, Cooperative HEENT: Other (dry oral mucosa) Lungs: Clear to Auscultation, Rhonchi. No: Wheezing Cardiovascular: Regular Rate, Regular Rhythm GI/Abdominal Exam: Normal Bowel Sounds, Soft, Non-Tender, No Distention Extremities: Normal Inspection, No Pedal Edema Skin: Warm, Dry - Patient Data Lab Results Last 24 hrs: Laboratory Results - last 24 hr 01/27/20 01/27/20 01/27/20 Range/Units 15:10 15:10 15:10 WBC 10.98 (4.0-11.0) K/uL RBC 4.42 L (4.50-5.90) M/uL Hgb 13.3 (13.0-17.0) g/dL Hct 42.8 (38.0-50.0) % MCV 96.8 (80.0-98.0) fL MCH 30.1 (27.0-32.0) pg MCHC 31.1 (31.0-37.0) g/dL RDW Std Deviation 51.9 (28.0-62.0) fl RDW Coeff of Rocco 15 (11.0-15.0) % Plt Count 211 (150-400) K/uL MPV 10.40 (7.40-12.00) fL Neut % (Auto) 74.8 (48.0-80.0) % Lymph % (Auto) 17.0 (16.0-40.0) % [place] % (Auto) 6.0 (0.0-15.0) % Eos % (Auto) 2.0 (0.0-7.0) % Baso % (Auto) 0.2 (0.0-1.5) % Neut # (Auto) 8.2 H (1.4-5.7) K/uL Lymph # (Auto) 1.9 (0.6-2.4) K/uL [place] # (Auto) 0.7 (0.0-0.8) K/uL Eos # (Auto) 0.2 (0.0-0.7) K/uL Baso # (Auto) 0.0 (0.0-0.1) K/uL Nucleated RBC % 0.0 /100WBC Nucleated RBCs # 0 K/uL Lactate (0.20-2.00) mmol/L Sodium 140 (136-148) mmol/L Potassium 5.2 H (3.5-5.1) mmol/L Chloride 101 (98-107) mmol/L Carbon Dioxide 33.1 H (21.0-32.0) mmol/L BUN 24 H (7.0-18.0) mg/dL Creatinine 1.1 (0.8-1.3) mg/dL Est Cr Clr Drug Dosing 58.95 mL/min Estimated GFR (MDRD) > 60.0 ml/min Glucose 292 H (74-106) mg/dL Calcium 9.5 (8.5-10.1) mg/dL Magnesium 1.4 L (1.8-2.4) mg/dL Total Bilirubin 0.4 (0.2-1.0) mg/dL AST 18 (15-37) IU/L ALT 22 (14-63) IU/L Alkaline Phosphatase 85 (46-116) U/L Troponin I < 0.050 (0.000-0.056) ng/mL B-Natriuretic Peptide 64 (<100) PG/ML Total Protein 7.7 (6.4-8.2) g/dL Albumin 3.3 L (3.4-5.0) g/dL Globulin 4.4 H (2.6-4.0) g/dL Albumin/Globulin Ratio 0.8 L (0.9-1.6) Urine Color Urine Appearance Urine pH (5.0-8.0) Ur Specific [place] (1.001-1.035) Urine Protein (NEGATIVE) mg/dL Urine Glucose (UA) (NEGATIVE) mg/dL Urine Ketones (NEGATIVE) mg/dL Urine Occult Blood (NEGATIVE) Urine Nitrite (NEGATIVE) Urine Bilirubin (NEGATIVE) Urine Urobilinogen (<2.0) EU/dL Ur Leukocyte Esterase (NEGATIVE) 01/27/20 01/27/20 Range/Units 15:10 17:20 WBC (4.0-11.0) K/uL RBC (4.50-5.90) M/uL Hgb (13.0-17.0) g/dL Hct (38.0-50.0) % MCV (80.0-98.0) fL MCH (27.0-32.0) pg MCHC (31.0-37.0) g/dL RDW Std Deviation (28.0-62.0) fl RDW Coeff of Rocco (11.0-15.0) % Plt Count (150-400) K/uL MPV (7.40-12.00) fL Neut % (Auto) (48.0-80.0) % Lymph % (Auto) (16.0-40.0) % [place] % (Auto) (0.0-15.0) % Eos % (Auto) (0.0-7.0) % Baso % (Auto) (0.0-1.5) % Neut # (Auto) (1.4-5.7) K/uL Lymph # (Auto) (0.6-2.4) K/uL [place] # (Auto) (0.0-0.8) K/uL Eos # (Auto) (0.0-0.7) K/uL Baso # (Auto) (0.0-0.1) K/uL Nucleated RBC % /100WBC Nucleated RBCs # K/uL Lactate 1.8 (0.20-2.00) mmol/L Sodium (136-148) mmol/L Potassium (3.5-5.1) mmol/L Chloride (98-107) mmol/L Carbon Dioxide (21.0-32.0) mmol/L BUN (7.0-18.0) mg/dL Creatinine (0.8-1.3) mg/dL Est Cr Clr Drug Dosing mL/min Estimated GFR (MDRD) ml/min Glucose (74-106) mg/dL Calcium (8.5-10.1) mg/dL Magnesium (1.8-2.4) mg/dL Total Bilirubin (0.2-1.0) mg/dL AST (15-37) IU/L ALT (14-63) IU/L Alkaline Phosphatase (46-116) U/L Troponin I (0.000-0.056) ng/mL B-Natriuretic Peptide (<100) PG/ML Total Protein (6.4-8.2) g/dL Albumin (3.4-5.0) g/dL Globulin (2.6-4.0) g/dL Albumin/Globulin Ratio (0.9-1.6) Urine Color YELLOW Urine Appearance CLEAR Urine pH 6.0 (5.0-8.0) Ur Specific [place] 1.025 (1.001-1.035) Urine Protein NEGATIVE (NEGATIVE) mg/dL Urine Glucose (UA) >=1000 (NEGATIVE) mg/dL Urine Ketones NEGATIVE (NEGATIVE) mg/dL Urine Occult Blood NEGATIVE (NEGATIVE) Urine Nitrite NEGATIVE (NEGATIVE) Urine Bilirubin NEGATIVE (NEGATIVE) Urine Urobilinogen 0.2 (<2.0) EU/dL Ur Leukocyte Esterase NEGATIVE (NEGATIVE) Result Diagrams: 01/27/20 15:10 01/27/20 15:10 Sepsis Event Note - Evaluation Sepsis Screening Result: No Definite Risk - Focused Exam Vital Signs: Vital Signs Temp Pulse Resp BP Pulse Ox Pulse Ox 01/27/20 18:09 94 L 94 L 01/27/20 17:33 36.4 C 101 H 18 132/69 100 01/27/20 16:45 99 20 136/57 L 97 01/27/20 16:30 103 H 20 135/74 97 01/27/20 16:15 106 H 20 126/70 97 01/27/20 15:45 107 H 22 H 130/82 99 01/27/20 15:20 110 H 24 H 133/80 98 01/27/20 15:05 36.3 C 108 H 30 H 155/92 H 100 Date Exam was Performed: 01/27/20 Time Exam was Performed: 18:22 Problem List Initiated/Reviewed/Updated: Yes Orders Last 24hrs: Active Orders 24 hr Category Date Time Status Admission Status [Patient Status] [ADT] Stat ADT 01/27/20 16:35 Active Blood Glucose Check, Bedside [RC] QIDACANDBED Care 01/27/20 18:09 Active EKG Documentation Completion [RC] STAT Care 01/27/20 15:15 Active EKG Documentation Completion [RC] STAT Care 01/27/20 15:16 Inactive Intake and Output [RC] Q12H Care 01/27/20 18:09 Active Oxygen Therapy [RC] PRN Care 01/27/20 18:09 Active RT Aerosol Therapy [RC] ASDIRECTED Care 01/27/20 15:16 Active RT Aerosol Therapy [RC] ASDIRECTED Care 01/27/20 15:27 Active RT Aerosol Therapy [RC] ASDIRECTED Care 01/27/20 18:11 Active Up With Assistance [RC] ASDIRECTED Care 01/27/20 18:09 Active VTE/DVT Education [RC] PER UNIT ROUTINE Care 01/27/20 18:09 Active Vital Signs [RC] Q4H Care 01/27/20 18:09 Active Regular Diet [DIET] Diet 01/27/20 Dinner Active CBC WITH AUTO DIFF [HEME] AM Lab 01/28/20 05:11 Ordered CBC WITH AUTO DIFF [HEME] AM Lab 01/29/20 05:11 Ordered COMPREHENSIVE METABOLIC PN,CMP [CHEM] AM Lab 01/28/20 05:11 Ordered COMPREHENSIVE METABOLIC PN,CMP [CHEM] AM Lab 01/29/20 05:11 Ordered CULTURE BLOOD [BC] Stat Lab 01/27/20 15:10 Received CULTURE BLOOD [BC] Stat Lab 01/27/20 15:30 Received INFLUENZA A+B AG SCREEN [RM] Routine Lab 01/27/20 18:21 Ordered MAGNESIUM [CHEM] AM Lab 01/28/20 05:11 Ordered Acetaminophen [Tylenol] Med 01/27/20 18:09 Active 650 mg PO Q4H PRN Albuterol/Ipratropium [DuoNeb 3.0-0.5 MG/3 ML] Med 01/27/20 18:09 Active 3 ml NEB Q4HRRT PRN Aspirin [Halfprin] Med 01/28/20 09:00 Ordered 81 mg PO DAILY Budesonide/Formoterol [Symbicort 160-4.5 MCG] Med 01/27/20 21:00 Ordered DOSE gm INH BID Citalopram [Celexa] Med 01/28/20 09:00 Ordered 10 mg PO DAILY Clopidogrel [Plavix] Med 01/28/20 09:00 Ordered 75 mg PO DAILY Docusate Sodium [Colace] Med 01/27/20 18:09 Active 100 mg PO BID PRN Heparin Sodium Med 01/27/20 18:15 Active 5,000 units SUBCUT Q8H Insulin Aspart [NovoLOG] Med 01/28/20 07:30 Active See Protocol SUBCUT TIDAC Lactated Ringers [Ringers, Lactated] 1,000 ml Med 01/27/20 18:09 Active IV ONETIME Magnesium Hydroxide [Milk of Magnesia] Med 01/27/20 18:09 Active 30 ml PO Q12H PRN Metoprolol Tartrate Med 01/27/20 21:00 Ordered 50 mg PO BID Ondansetron [Zofran ODT] Med 01/27/20 18:09 Active 4 mg PO Q4H PRN Ondansetron [Zofran] Med 01/27/20 18:09 Active 4 mg IVPUSH Q4H PRN Pantoprazole [ProTONIX] Med 01/28/20 07:30 Ordered 40 mg PO ACBREAKFAST Rosuvastatin Calcium [Crestor] Med 01/27/20 21:00 Ordered 40 mg PO BEDTIME methylPREDNISolone Sod Succ [Solu-MEDROL] Med 01/27/20 21:00 Ordered 40 mg IVPUSH BID polyethylene glycoL 3350 [MiraLAX] Med 01/27/20 18:09 Active 17 gm PO DAILY PRN Blood Culture x2 Reflex Set [OM.PC] Stat Oth 01/27/20 15:15 Ordered Resuscitation Status Routine Resus Stat 01/27/20 18:09 Ordered Medication Orders Acetaminophen (Tylenol) 650 mg PO Q4H PRN PRN Reason: Pain (Mild 1-3)/fever Albuterol/Ipratropium (Duoneb 3.0-0.5 Mg/3 Ml) 3 ml NEB Q4HRRT PRN PRN Reason: Shortness Of Breath/wheezing Aspirin (Halfprin) 81 mg PO DAILY MAGEN Budesonide/Formoterol Fumarate (Symbicort 160-4.5 Mcg) gm INH BID MAGEN Citalopram Hydrobromide (Celexa) 10 mg PO DAILY MAGEN Clopidogrel Bisulfate (Plavix) 75 mg PO DAILY [facility] Docusate Sodium (Colace) 100 mg PO BID PRN PRN Reason: Constipation Heparin Sodium (Porcine) (Heparin Sodium) 5,000 units SUBCUT Q8H [facility] Lactated Ringer's (Ringers, Lactated) 1,000 mls @ 75 mls/hr IV ONETIME ONE Stop: 01/28/20 07:28 Insulin Aspart (Novolog) 0 unit SUBCUT TIDAC MAGEN; Protocol Magnesium Hydroxide (Milk Of Magnesia) 30 ml PO Q12H PRN PRN Reason: Constipation Methylprednisolone Sodium Succinate (Solu-Medrol) 40 mg IVPUSH BID [facility] Non-Formulary Medication (Metoprolol Tartrate) 50 mg PO BID [facility] Non-Formulary Medication (Rosuvastatin Calcium [Crestor]) 40 mg PO BEDTIME MAGEN Ondansetron HCl (Zofran Odt) 4 mg PO Q4H PRN PRN Reason: nausea, able to take PO Ondansetron HCl (Zofran) 4 mg IVPUSH Q4H PRN PRN Reason: Nausea Pantoprazole Sodium (Protonix) 40 mg PO ACBREAKFAST MAGEN Polyethylene Glycol (Miralax) 17 gm PO DAILY PRN PRN Reason: Constipation Assessment/Plan Comment:: A: 1. Acute on chronic hypoxic respiratory failure 2. Hypomagnesemia 3. hyperkalemia 4. PMH COPD, CAD, DM2 P: 1. Will add methylprednisolone 40 mg IV BID, Duonebs PRN. Continue home meds for COPD. Recheck Mg tomorrow morning. Will start maintenance fluids at 75 ml/ hr LR since his serum osmolality is 305 and he is dry. ISS for hyperglycemia. Dispo: 1-2 days.
[2020-01-27] MEDS: Heparin Sodium 5,000 Units/ML Vial SUBCUT SCH (18:31)
[2020-01-27] MEDS: Metoprolol Tartrate 50 MG Tab PO SCH (21:13)
[2020-01-27] MEDS: methylPREDNISolone Sodium Succinate 40 MG/1 ML SDV IVPUSH SCH (21:13)
[2020-01-27] MEDS: Rosuvastatin 10 MG Tab PO SCH (21:14)
[2020-01-27] MEDS: Albuterol/Ipratropium 3.0-0.5 MG/3 ML Neb Soln NEB PRN (21:15)
[2020-01-27] MEDS: Budesonide/Formoterol 160-4.5 MCG/Puff 6 GM Inhaler INH SCH (21:59)
[2020-01-27] MEDS: Acetaminophen 325 MG Tab PO PRN (23:01)
[2020-01-28] MEDS: Heparin Sodium 5,000 Units/ML Vial SUBCUT SCH ×3 (01:57→17:41)
[2020-01-28] MEDS: Albuterol/Ipratropium 3.0-0.5 MG/3 ML Neb Soln NEB PRN ×2 (03:08→14:04)
[2020-01-28] MEDS: Acetaminophen 325 MG Tab PO PRN ×2 (03:25→07:17)
--- NOTE | 2020-01-28 03:58 | PN ---
[facility] Physician - Brief Progress [id number]/28/2020 03:32[facility] [place], [place] - MWN (VIMALN) - MWN ICULAN LOPEZDate of Service 01/28/2020 03:32HPI/Events o f Note Chart reviewed. On camera, the patient is asleep in bed on BIPAP, appears in NAD and no access ory respiratory muscle use. Mr Lopez is a 79 yr old man presenting with worsening dyspnea and ran o ut of his supplemental oxygen (2-3 lpm at home). He has been using his nebulizer at home more often. The patient has undelrying COPD and has been admitted 10/2019 for CAP and respiratory failure, and for HCAP and acute on chronic respiratory failure.PMH: COPD - on home O2 at 2-3L, CHF, CAD, CHF , GERD, diverticulosis, anxiety/depression/PTSD.Investigations reviewed - pertinent: BMP - K 5.2, bic arb 33, Mag 1.4, Alb 3.3; LFTs unremarkable. CBC unremarkable. LA 1.8. Influenza negative.ABG 7.33/ 65/106/34CxR: persistent b/l lower lobe infiltrates left>rt. Per radiologist unchanged from previous xray on 12/30.Of note, CT chest on 01/24 does show b/l lower lobe infiltrates.A/P:1. Acute on chronic r espiratory failure, hypoxemic and hypercapnic- patient started on nocturnal BIPAP for ASHUTOSH.- ABG sugge sts chronic hypercapnia, though given pH low-normal, his baseline pCO2 is likely somewhat lower.Order ed ABG for 8am, when the patient should be off BIPAP.2. AECOPD- started on empiric steroids. If not i mproving, consider empiric Abx to cover atypical infections.- resumed Symbicort, and prn Duoneb.- may need to step-up his home inhalers.3. B/l lower lobe infiltrates- appear subacute at this point. No n ew infiltrates and no signs/symptoms of infection.- needs further workup if not already done (can be done as outpatinet, needs varnish blender evaluation)4. CAD and CHF - is on ASA, beta davion, statin.I s not on TUCKER-inh or ARB, would reassess.5. HTN - resumed home Metoprolol. Follow BP and adjust.6. DM2 - is on Insulin sliding scale; goal blood glucose <180 at all times.7. GI/DVT prophylaxis - PPI and Heparin SC.Interventions Major-Respiratory failure - evaluation and management, Other: AECOPD; CAD, C HF; HTN
[2020-01-28] MEDS: Budesonide/Formoterol 160-4.5 MCG/Puff 6 GM Inhaler INH SCH ×2 (05:56→21:39)
[2020-01-28 06:52] LABS: BLOOD UREA NITROGEN,BUN 25 mg/dL (7.0-18.0); CARBON DIOXIDE,CO2 32.1 mmol/L (21.0-32.0); CHLORIDE,CL 103 mmol/L (98-107); GLUCOSE RANDOM 292 mg/dL (74-106); POTASSIUM,K 4.9 mmol/L (3.5-5.1); SODIUM,NA 141 mmol/L (136-148)
[2020-01-28] MEDS: Pantoprazole 40 MG Tab.CR PO SCH (07:17)
[2020-01-28] MEDS: Insulin Aspart 100 Units/ML 3 ML Pen SUBCUT SCH ×3 (07:45→17:37)
[2020-01-28] MEDS ORDERED: Magnesium Sulfate/Water 2 GM in Premix Bag 1 BAG IV ONE (08:17)
[2020-01-28] MEDS: Citalopram 20 MG Tab PO SCH (08:27)
[2020-01-28] MEDS: Aspirin 81 MG Tab.EC PO SCH (08:28)
[2020-01-28] MEDS: Clopidogrel 75 MG Tab PO SCH (08:28)
[2020-01-28] MEDS: Metoprolol Tartrate 50 MG Tab PO SCH ×2 (08:28→20:43)
[2020-01-28] MEDS: methylPREDNISolone Sodium Succinate 40 MG/1 ML SDV IVPUSH SCH ×2 (08:30→20:42)
[2020-01-28] MEDS ORDERED: Acetaminophen/HYDROcodone 325-5 MG Tab PO PRN (09:38)
--- NOTE | 2020-01-28 10:51 | PCM.PN ---
- General Info Date of Service: 01/28/20 Subjective Update: On BiPAP temporarily. Now on NC. No chest pain. States he feels better today. - Patient Data Vitals - Most Recent: Last Vital Signs Temp 36.5 C 01/28/20 06:00 Pulse 87 01/28/20 08:28 Resp 25 H 01/28/20 10:00 BP 119/56 L 01/28/20 10:00 Pulse Ox 97 01/28/20 10:00 Weight - Most Recent: 111 kg I&O - Last 24 Hours: Intake & Output 01/27/20 01/28/20 01/28/20 22:59 06:59 14:59 Intake Total 1095 Output Total 250 850 Balance -250 245 Lab Results Last 24 Hours: Laboratory Results - last 24 hr 01/27/20 01/27/20 01/27/20 Range/Units 15:10 15:10 15:10 WBC 10.98 (4.0-11.0) K/uL RBC 4.42 L (4.50-5.90) M/uL Hgb 13.3 (13.0-17.0) g/dL Hct 42.8 (38.0-50.0) % MCV 96.8 (80.0-98.0) fL MCH 30.1 (27.0-32.0) pg MCHC 31.1 (31.0-37.0) g/dL RDW Std Deviation 51.9 (28.0-62.0) fl RDW Coeff of Rocco 15 (11.0-15.0) % Plt Count 211 (150-400) K/uL MPV 10.40 (7.40-12.00) fL Neut % (Auto) 74.8 (48.0-80.0) % Lymph % (Auto) 17.0 (16.0-40.0) % [place] % (Auto) 6.0 (0.0-15.0) % Eos % (Auto) 2.0 (0.0-7.0) % Baso % (Auto) 0.2 (0.0-1.5) % Neut # (Auto) 8.2 H (1.4-5.7) K/uL Lymph # (Auto) 1.9 (0.6-2.4) K/uL [place] # (Auto) 0.7 (0.0-0.8) K/uL Eos # (Auto) 0.2 (0.0-0.7) K/uL Baso # (Auto) 0.0 (0.0-0.1) K/uL Nucleated RBC % 0.0 /100WBC Nucleated RBCs # 0 K/uL ABG pH (7.35-7.45) ABG pCO2 (35-45) mmHG ABG pO2 (75-100) mmHG ABG HCO3 (22-26) mEq/L ABG Total CO2 ABG Base Excess (-2.0-2.0) Lactate (0.20-2.00) mmol/L Sodium 140 (136-148) mmol/L Potassium 5.2 H (3.5-5.1) mmol/L Chloride 101 (98-107) mmol/L Carbon Dioxide 33.1 H (21.0-32.0) mmol/L BUN 24 H (7.0-18.0) mg/dL Creatinine 1.1 (0.8-1.3) mg/dL Est Cr Clr Drug Dosing 58.95 mL/min Estimated GFR (MDRD) > 60.0 ml/min Glucose 292 H (74-106) mg/dL POC Glucose (60-110) mg/dL Calcium 9.5 (8.5-10.1) mg/dL Magnesium 1.4 L (1.8-2.4) mg/dL Total Bilirubin 0.4 (0.2-1.0) mg/dL AST 18 (15-37) IU/L ALT 22 (14-63) IU/L Alkaline Phosphatase 85 (46-116) U/L Troponin I < 0.050 (0.000-0.056) ng/mL B-Natriuretic Peptide 64 (<100) PG/ML Total Protein 7.7 (6.4-8.2) g/dL Albumin 3.3 L (3.4-5.0) g/dL Globulin 4.4 H (2.6-4.0) g/dL Albumin/Globulin Ratio 0.8 L (0.9-1.6) Urine Color Urine Appearance Urine pH (5.0-8.0) Ur Specific [place] (1.001-1.035) Urine Protein (NEGATIVE) mg/dL Urine Glucose (UA) (NEGATIVE) mg/dL Urine Ketones (NEGATIVE) mg/dL Urine Occult Blood (NEGATIVE) Urine Nitrite (NEGATIVE) Urine Bilirubin (NEGATIVE) Urine Urobilinogen (<2.0) EU/dL Ur Leukocyte Esterase (NEGATIVE) 01/27/20 01/27/20 01/27/20 Range/Units 15:10 17:20 19:13 WBC (4.0-11.0) K/uL RBC (4.50-5.90) M/uL Hgb (13.0-17.0) g/dL Hct (38.0-50.0) % MCV (80.0-98.0) fL MCH (27.0-32.0) pg MCHC (31.0-37.0) g/dL RDW Std Deviation (28.0-62.0) fl RDW Coeff of Rocco (11.0-15.0) % Plt Count (150-400) K/uL MPV (7.40-12.00) fL Neut % (Auto) (48.0-80.0) % Lymph % (Auto) (16.0-40.0) % [place] % (Auto) (0.0-15.0) % Eos % (Auto) (0.0-7.0) % Baso % (Auto) (0.0-1.5) % Neut # (Auto) (1.4-5.7) K/uL Lymph # (Auto) (0.6-2.4) K/uL [place] # (Auto) (0.0-0.8) K/uL Eos # (Auto) (0.0-0.7) K/uL Baso # (Auto) (0.0-0.1) K/uL Nucleated RBC % /100WBC Nucleated RBCs # K/uL ABG pH 7.332 L (7.35-7.45) ABG pCO2 65 H (35-45) mmHG ABG pO2 106 H (75-100) mmHG ABG HCO3 34 H (22-26) mEq/L ABG Total CO2 31.4 ABG Base Excess 6.3 H (-2.0-2.0) Lactate 1.8 (0.20-2.00) mmol/L Sodium (136-148) mmol/L Potassium (3.5-5.1) mmol/L Chloride (98-107) mmol/L Carbon Dioxide (21.0-32.0) mmol/L BUN (7.0-18.0) mg/dL Creatinine (0.8-1.3) mg/dL Est Cr Clr Drug Dosing mL/min Estimated GFR (MDRD) ml/min Glucose (74-106) mg/dL POC Glucose (60-110) mg/dL Calcium (8.5-10.1) mg/dL Magnesium (1.8-2.4) mg/dL Total Bilirubin (0.2-1.0) mg/dL AST (15-37) IU/L ALT (14-63) IU/L Alkaline Phosphatase (46-116) U/L Troponin I (0.000-0.056) ng/mL B-Natriuretic Peptide (<100) PG/ML Total Protein (6.4-8.2) g/dL Albumin (3.4-5.0) g/dL Globulin (2.6-4.0) g/dL Albumin/Globulin Ratio (0.9-1.6) Urine Color YELLOW Urine Appearance CLEAR Urine pH 6.0 (5.0-8.0) Ur Specific [place] 1.025 (1.001-1.035) Urine Protein NEGATIVE (NEGATIVE) mg/dL Urine Glucose (UA) >=1000 (NEGATIVE) mg/dL Urine Ketones NEGATIVE (NEGATIVE) mg/dL Urine Occult Blood NEGATIVE (NEGATIVE) Urine Nitrite NEGATIVE (NEGATIVE) Urine Bilirubin NEGATIVE (NEGATIVE) Urine Urobilinogen 0.2 (<2.0) EU/dL Ur Leukocyte Esterase NEGATIVE (NEGATIVE) 01/27/20 01/28/20 01/28/20 Range/Units 21:35 06:03 06:03 WBC 7.17 (4.0-11.0) K/uL RBC 4.00 L (4.50-5.90) M/uL Hgb 11.7 L (13.0-17.0) g/dL Hct 37.6 L (38.0-50.0) % MCV 94.0 (80.0-98.0) fL MCH 29.3 (27.0-32.0) pg MCHC 31.1 (31.0-37.0) g/dL RDW Std Deviation 49.4 (28.0-62.0) fl RDW Coeff of Rocco 14 (11.0-15.0) % Plt Count 200 (150-400) K/uL MPV 10.40 (7.40-12.00) fL Neut % (Auto) 82.5 H (48.0-80.0) % Lymph % (Auto) 15.5 L (16.0-40.0) % [place] % (Auto) 2.0 (0.0-15.0) % Eos % (Auto) 0.0 (0.0-7.0) % Baso % (Auto) 0.0 (0.0-1.5) % Neut # (Auto) 5.9 H (1.4-5.7) K/uL Lymph # (Auto) 1.1 (0.6-2.4) K/uL [place] # (Auto) 0.1 (0.0-0.8) K/uL Eos # (Auto) 0.0 (0.0-0.7) K/uL Baso # (Auto) 0.0 (0.0-0.1) K/uL Nucleated RBC % 0.0 /100WBC Nucleated RBCs # 0 K/uL ABG pH (7.35-7.45) ABG pCO2 (35-45) mmHG ABG pO2 (75-100) mmHG ABG HCO3 (22-26) mEq/L ABG Total CO2 ABG Base Excess (-2.0-2.0) Lactate (0.20-2.00) mmol/L Sodium 141 (136-148) mmol/L Potassium 4.9 (3.5-5.1) mmol/L Chloride 103 (98-107) mmol/L Carbon Dioxide 32.1 H (21.0-32.0) mmol/L BUN 25 H (7.0-18.0) mg/dL Creatinine 0.9 (0.8-1.3) mg/dL Est Cr Clr Drug Dosing 71.75 mL/min Estimated GFR (MDRD) > 60.0 ml/min Glucose 292 H (74-106) mg/dL POC Glucose 274 H (60-110) mg/dL Calcium 8.7 (8.5-10.1) mg/dL Magnesium 1.7 L (1.8-2.4) mg/dL Total Bilirubin 0.3 (0.2-1.0) mg/dL AST 15 (15-37) IU/L ALT 20 (14-63) IU/L Alkaline Phosphatase 71 (46-116) U/L Troponin I (0.000-0.056) ng/mL B-Natriuretic Peptide (<100) PG/ML Total Protein 6.5 (6.4-8.2) g/dL Albumin 2.7 L (3.4-5.0) g/dL Globulin 3.8 (2.6-4.0) g/dL Albumin/Globulin Ratio 0.7 L (0.9-1.6) Urine Color Urine Appearance Urine pH (5.0-8.0) Ur Specific [place] (1.001-1.035) Urine Protein (NEGATIVE) mg/dL Urine Glucose (UA) (NEGATIVE) mg/dL Urine Ketones (NEGATIVE) mg/dL Urine Occult Blood (NEGATIVE) Urine Nitrite (NEGATIVE) Urine Bilirubin (NEGATIVE) Urine Urobilinogen (<2.0) EU/dL Ur Leukocyte Esterase (NEGATIVE) 01/28/20 01/28/20 Range/Units 06:59 08:05 WBC (4.0-11.0) K/uL RBC (4.50-5.90) M/uL Hgb (13.0-17.0) g/dL Hct (38.0-50.0) % MCV (80.0-98.0) fL MCH (27.0-32.0) pg MCHC (31.0-37.0) g/dL RDW Std Deviation (28.0-62.0) fl RDW Coeff of Rocco (11.0-15.0) % Plt Count (150-400) K/uL MPV (7.40-12.00) fL Neut % (Auto) (48.0-80.0) % Lymph % (Auto) (16.0-40.0) % [place] % (Auto) (0.0-15.0) % Eos % (Auto) (0.0-7.0) % Baso % (Auto) (0.0-1.5) % Neut # (Auto) (1.4-5.7) K/uL Lymph # (Auto) (0.6-2.4) K/uL [place] # (Auto) (0.0-0.8) K/uL Eos # (Auto) (0.0-0.7) K/uL Baso # (Auto) (0.0-0.1) K/uL Nucleated RBC % /100WBC Nucleated RBCs # K/uL ABG pH 7.430 (7.35-7.45) ABG pCO2 48 H (35-45) mmHG ABG pO2 68 L (75-100) mmHG ABG HCO3 32 H (22-26) mEq/L ABG Total CO2 28.5 ABG Base Excess 6.2 H (-2.0-2.0) Lactate (0.20-2.00) mmol/L Sodium (136-148) mmol/L Potassium (3.5-5.1) mmol/L Chloride (98-107) mmol/L Carbon Dioxide (21.0-32.0) mmol/L BUN (7.0-18.0) mg/dL Creatinine (0.8-1.3) mg/dL Est Cr Clr Drug Dosing mL/min Estimated GFR (MDRD) ml/min Glucose (74-106) mg/dL POC Glucose 274 H (60-110) mg/dL Calcium (8.5-10.1) mg/dL Magnesium (1.8-2.4) mg/dL Total Bilirubin (0.2-1.0) mg/dL AST (15-37) IU/L ALT (14-63) IU/L Alkaline Phosphatase (46-116) U/L Troponin I (0.000-0.056) ng/mL B-Natriuretic Peptide (<100) PG/ML Total Protein (6.4-8.2) g/dL Albumin (3.4-5.0) g/dL Globulin (2.6-4.0) g/dL Albumin/Globulin Ratio (0.9-1.6) Urine Color Urine Appearance Urine pH (5.0-8.0) Ur Specific [place] (1.001-1.035) Urine Protein (NEGATIVE) mg/dL Urine Glucose (UA) (NEGATIVE) mg/dL Urine Ketones (NEGATIVE) mg/dL Urine Occult Blood (NEGATIVE) Urine Nitrite (NEGATIVE) Urine Bilirubin (NEGATIVE) Urine Urobilinogen (<2.0) EU/dL Ur Leukocyte Esterase (NEGATIVE) Jason Results Last 24 Hours: Microbiology 01/27/20 18:45 Influenza Type A Antigen Screen - Final Nasopharyngeal Swab NEGATIVE INFLUENZA A VIRUS AG REFERENCE RANGE: NEGATIVE Influenza Type B Antigen Screen - Final NEGATIVE INFLUENZA B VIRUS AG REFERENCE RANGE: NEGATIVE Med Orders - Current: Current Medications Acetaminophen (Tylenol) 650 mg PO Q4H PRN PRN Reason: Pain (Mild 1-3)/fever Last Admin: 01/28/20 07:17 Dose: 650 mg Hydrocodone Bitart/Acetaminophen ([place] 325-5 Mg) 1 tab PO TID PRN PRN Reason: Pain Last Admin: 01/28/20 09:44 Dose: 1 tab Albuterol/Ipratropium (Duoneb 3.0-0.5 Mg/3 Ml) 3 ml NEB Q4HRRT PRN PRN Reason: Shortness Of Breath/wheezing Last Admin: 01/28/20 03:08 Dose: 3 ml Aspirin (Halfprin) 81 mg PO DAILY [facility] Last Admin: 01/28/20 08:28 Dose: 81 mg Budesonide/Formoterol Fumarate (Symbicort 160-4.5 Mcg) 0 gm INH BIDRT [facility] Last Admin: 01/28/20 05:56 Dose: Not Given Citalopram Hydrobromide (Celexa) 10 mg PO DAILY [facility] Last Admin: 01/28/20 08:27 Dose: 10 mg Clopidogrel Bisulfate (Plavix) 75 mg PO DAILY [facility] Last Admin: 01/28/20 08:28 Dose: 75 mg Docusate Sodium (Colace) 100 mg PO BID PRN PRN Reason: Constipation Heparin Sodium (Porcine) (Heparin Sodium) 5,000 units SUBCUT Q8H [facility] Last Admin: 01/28/20 10:00 Dose: 5,000 units Insulin Aspart (Novolog) 0 unit SUBCUT TIDAC [facility]; Protocol Last Admin: 01/28/20 07:45 Dose: 9 units Magnesium Hydroxide (Milk Of Magnesia) 30 ml PO Q12H PRN PRN Reason: Constipation Methylprednisolone Sodium Succinate (Solu-Medrol) 40 mg IVPUSH BID [facility] Last Admin: 01/28/20 08:30 Dose: 40 mg Metoprolol Tartrate (Lopressor) 50 mg PO BID [facility] Last Admin: 01/28/20 08:28 Dose: 50 mg Ondansetron HCl (Zofran Odt) 4 mg PO Q4H PRN PRN Reason: nausea, able to take PO Ondansetron HCl (Zofran) 4 mg IVPUSH Q4H PRN PRN Reason: Nausea Pantoprazole Sodium (Protonix) 40 mg PO ACBREAKFAST [facility] Last Admin: 01/28/20 07:17 Dose: 40 mg Polyethylene Glycol (Miralax) 17 gm PO DAILY PRN PRN Reason: Constipation Rosuvastatin Calcium (Crestor) 40 mg PO BEDTIME [facility] Last Admin: 01/27/20 21:14 Dose: 40 mg Discontinued Medications Hydrocodone Bitart/Acetaminophen ([place] 325-7.5 Mg) 1 tab PO STAT ONE Stop: 01/27/20 16:13 Last Admin: 01/27/20 16:17 Dose: 1 tab Albuterol/Ipratropium (Duoneb 3.0-0.5 Mg/3 Ml) 3 ml NEB ONETIME ONE Stop: 01/27/20 15:17 Last Admin: 01/27/20 15:24 Dose: 3 ml Albuterol/Ipratropium (Duoneb 3.0-0.5 Mg/3 Ml) 3 ml NEB ONETIME ONE Stop: 01/27/20 15:27 Last Admin: 01/27/20 15:35 Dose: 3 ml Magnesium Sulfate 2 gm/ Premix 50 mls @ 50 mls/hr IV ONETIME ONE Stop: 01/27/20 16:27 Last Admin: 01/27/20 15:58 Dose: Not Given Magnesium Sulfate 1 gm/ Sodium (Chloride) 52 mls @ 104 mls/hr IV ONETIME ONE Stop: 01/27/20 16:29 Last Admin: 01/27/20 16:07 Dose: 104 mls/hr Magnesium Sulfate 1 gm/ Sodium (Chloride) 52 mls @ 104 mls/hr IV ONETIME ONE Stop: 01/27/20 17:14 Last Admin: 01/27/20 16:52 Dose: 104 mls/hr Lactated Ringer's (Ringers, Lactated) 1,000 mls @ 75 mls/hr IV ONETIME ONE Stop: 01/28/20 07:28 Last Admin: 01/27/20 18:28 Dose: 75 mls/hr Magnesium Sulfate 2 gm/ Premix 50 mls @ 25 mls/hr IV ONETIME ONE Stop: 01/28/20 10:16 Last Admin: 01/28/20 08:45 Dose: 25 mls/hr Methylprednisolone Sodium Succinate (Solu-Medrol) 125 mg IVPUSH ONETIME ONE Stop: 01/27/20 15:30 Last Admin: 01/27/20 15:41 Dose: 125 mg - Exam Quality Assessment: Supplemental Oxygen General: Alert, Oriented, Cooperative, No Acute Distress Lungs: Clear to Auscultation, Normal Respiratory Effort. No: Crackles, Wheezing Cardiovascular: Regular Rate, Regular Rhythm GI/Abdominal Exam: Normal Bowel Sounds, Soft, Non-Tender, No Distention Extremities: Normal Inspection, No Pedal Edema Skin: Warm, Dry Sepsis Event Note - Evaluation Sepsis Screening Result: No Definite Risk - Focused Exam Vital Signs: Vital Signs Temp Pulse Resp BP BP Pulse Ox 01/28/20 10:00 25 H 119/56 L 97 01/28/20 09:00 26 H 125/69 95 01/28/20 08:28 87 115/69 01/28/20 08:00 30 H 115/69 93 L 01/28/20 07:00 25 H 109/53 L 94 L 01/28/20 06:00 36.5 C 18 101/57 L 95 01/28/20 03:00 26 H 126/70 93 L 01/28/20 02:00 21 H 133/72 94 L 01/28/20 01:00 21 H 126/66 95 01/28/20 00:00 36.8 C 20 115/63 94 L 01/27/20 23:00 22 H 124/67 96 Date Exam was Performed: 01/28/20 Time Exam was Performed: 16:52 - Problem List Review Problem List Initiated/Reviewed/Updated: Yes - My Orders Last 24 Hours: My Active Orders 01/27/20 18:09 Blood Glucose Check, Bedside [RC] QIDACANDBED Intake and Output [RC] Q12H Oxygen Therapy [RC] PRN Up With Assistance [RC] ASDIRECTED VTE/DVT Education [RC] PER UNIT ROUTINE Vital Signs [RC] Q1H Acetaminophen [Tylenol] 650 mg PO Q4H PRN Albuterol/Ipratropium [DuoNeb 3.0-0.5 MG/3 ML] 3 ml NEB Q4HRRT PRN Docusate Sodium [Colace] 100 mg PO BID PRN Magnesium Hydroxide [Milk of Magnesia] 30 ml PO Q12H PRN Ondansetron [Zofran ODT] 4 mg PO Q4H PRN Ondansetron [Zofran] 4 mg IVPUSH Q4H PRN polyethylene glycoL 3350 [MiraLAX] 17 gm PO DAILY PRN Resuscitation Status Routine 01/27/20 18:11 RT Aerosol Therapy [RC] ASDIRECTED 01/27/20 18:15 Heparin Sodium 5,000 units SUBCUT Q8H 01/27/20 18:43 Consult to Physical Therapy [PT Evaluation and Treatment] [CONS] Routine 01/27/20 21:00 Budesonide/Formoterol [Symbicort 160-4.5 MCG] 0 gm INH BIDRT Metoprolol Tartrate [Lopressor] 50 mg PO BID Rosuvastatin [Crestor] 40 mg PO BEDTIME methylPREDNISolone Sod Succ [Solu-MEDROL] 40 mg IVPUSH BID 01/27/20 Dinner Regular Diet [DIET] 01/28/20 07:30 Insulin Aspart [NovoLOG] See Protocol SUBCUT TIDAC Pantoprazole [ProTONIX] 40 mg PO ACBREAKFAST 01/28/20 09:00 Aspirin [Halfprin] 81 mg PO DAILY Citalopram [Celexa] 10 mg PO DAILY Clopidogrel [Plavix] 75 mg PO DAILY 01/28/20 09:38 Acetaminophen/HYDROcodone [[place] 325-5 MG] 1 tab PO TID PRN 01/29/20 05:11 CBC WITH AUTO DIFF [HEME] AM COMPREHENSIVE METABOLIC PN,CMP [CHEM] AM - Plan Plan:: A: 1. Acute on chronic hypoxic respiratory failure 2. Hypomagnesemia 3. PMH COPD, CAD, DM2, chronic pain P: 1. Continue methylprednisolone. Duonebs PRN. Continued his home Koppel for chronic pain. Replaced magnesium. Recheck tomorrow. Dispo: likely dc tomorrow.
[2020-01-28] MEDS ORDERED: Acetaminophen/HYDROcodone 325-5 MG Tab PO ONE (11:14)
[2020-01-28] MEDS ORDERED: Acetaminophen/HYDROcodone 325-10 MG Tab PO PRN (11:14)
[2020-01-28] MEDS: Sodium Chloride 0.65% Nasal Spray 45 ML Bottle NASBOTH PRN ×3 (16:41→23:13)
[2020-01-28] MEDS: Rosuvastatin 10 MG Tab PO SCH (20:42)
[2020-01-28] MEDS: Acetaminophen/HYDROcodone 325-10 MG Tab PO PRN (20:53)
[2020-01-28] MEDS ORDERED: Insulin Glargine,Human Rec. Analog 100 Units/ML 3 ML Pen SUBCUT SCH (21:00)
[2020-01-29] MEDS: Heparin Sodium 5,000 Units/ML Vial SUBCUT SCH ×3 (01:16→19:15)
[2020-01-29] MEDS: Acetaminophen/HYDROcodone 325-10 MG Tab PO PRN ×3 (06:36→21:27)
[2020-01-29] MEDS: Pantoprazole 40 MG Tab.CR PO SCH (06:37)
[2020-01-29 06:58] LABS: BLOOD UREA NITROGEN,BUN 27 mg/dL (7.0-18.0); CARBON DIOXIDE,CO2 31.4 mmol/L (21.0-32.0); CHLORIDE,CL 102 mmol/L (98-107); GLUCOSE RANDOM 272 mg/dL (74-106); POTASSIUM,K 4.7 mmol/L (3.5-5.1); SODIUM,NA 140 mmol/L (136-148)
[2020-01-29] MEDS: Budesonide/Formoterol 160-4.5 MCG/Puff 6 GM Inhaler INH SCH ×2 (07:05→20:13)
[2020-01-29] MEDS: Insulin Aspart 100 Units/ML 3 ML Pen SUBCUT SCH ×3 (07:30→16:37)
[2020-01-29] MEDS: Aspirin 81 MG Tab.EC PO SCH (08:54)
[2020-01-29] MEDS: Clopidogrel 75 MG Tab PO SCH (08:54)
[2020-01-29] MEDS: Metoprolol Tartrate 50 MG Tab PO SCH ×2 (08:54→21:25)
[2020-01-29] MEDS: Citalopram 20 MG Tab PO SCH (08:55)
[2020-01-29] MEDS: methylPREDNISolone Sodium Succinate 40 MG/1 ML SDV IVPUSH SCH ×2 (08:57→20:29)
--- NOTE | 2020-01-29 10:15 | PCM.PN ---
- General Info Date of Service: 01/29/20 Subjective Update: intermittent BiPAP overnight for sleep apnea. Patient feels tired this morning. - Patient Data Vitals - Most Recent: Last Vital Signs Temp 36.4 C 01/29/20 03:50 Pulse 98 01/29/20 08:54 Resp 18 01/29/20 03:50 BP 120/59 L 01/29/20 08:54 Pulse Ox 97 01/29/20 03:50 Weight - Most Recent: 111 kg I&O - Last 24 Hours: Intake & Output 01/28/20 01/29/20 01/29/20 22:59 06:59 14:59 Intake Total 800 900 Output Total 800 Balance 800 100 Lab Results Last 24 Hours: Laboratory Results - last 24 hr 01/28/20 01/28/20 01/28/20 Range/Units 11:05 16:58 20:48 WBC (4.0-11.0) K/uL RBC (4.50-5.90) M/uL Hgb (13.0-17.0) g/dL Hct (38.0-50.0) % MCV (80.0-98.0) fL MCH (27.0-32.0) pg MCHC (31.0-37.0) g/dL RDW Std Deviation (28.0-62.0) fl RDW Coeff of Rocco (11.0-15.0) % Plt Count (150-400) K/uL MPV (7.40-12.00) fL Neut % (Auto) (48.0-80.0) % Lymph % (Auto) (16.0-40.0) % [place] % (Auto) (0.0-15.0) % Eos % (Auto) (0.0-7.0) % Baso % (Auto) (0.0-1.5) % Neut # (Auto) (1.4-5.7) K/uL Lymph # (Auto) (0.6-2.4) K/uL [place] # (Auto) (0.0-0.8) K/uL Eos # (Auto) (0.0-0.7) K/uL Baso # (Auto) (0.0-0.1) K/uL Nucleated RBC % /100WBC Nucleated RBCs # K/uL Sodium (136-148) mmol/L Potassium (3.5-5.1) mmol/L Chloride (98-107) mmol/L Carbon Dioxide (21.0-32.0) mmol/L BUN (7.0-18.0) mg/dL Creatinine (0.8-1.3) mg/dL Est Cr Clr Drug Dosing mL/min Estimated GFR (MDRD) ml/min Glucose (74-106) mg/dL POC Glucose 257 H 273 H 280 H (60-110) mg/dL Calcium (8.5-10.1) mg/dL Magnesium (1.8-2.4) mg/dL Total Bilirubin (0.2-1.0) mg/dL AST (15-37) IU/L ALT (14-63) IU/L Alkaline Phosphatase (46-116) U/L Total Protein (6.4-8.2) g/dL Albumin (3.4-5.0) g/dL Globulin (2.6-4.0) g/dL Albumin/Globulin Ratio (0.9-1.6) 01/29/20 01/29/20 01/29/20 Range/Units 06:09 06:10 06:10 WBC 10.01 (4.0-11.0) K/uL RBC 4.18 L (4.50-5.90) M/uL Hgb 12.2 L (13.0-17.0) g/dL Hct 38.9 (38.0-50.0) % MCV 93.1 (80.0-98.0) fL MCH 29.2 (27.0-32.0) pg MCHC 31.4 (31.0-37.0) g/dL RDW Std Deviation 48.4 (28.0-62.0) fl RDW Coeff of Rocco 14 (11.0-15.0) % Plt Count 217 (150-400) K/uL MPV 10.00 (7.40-12.00) fL Neut % (Auto) 82.6 H (48.0-80.0) % Lymph % (Auto) 13.6 L (16.0-40.0) % [place] % (Auto) 3.8 (0.0-15.0) % Eos % (Auto) 0.0 (0.0-7.0) % Baso % (Auto) 0.0 (0.0-1.5) % Neut # (Auto) 8.3 H (1.4-5.7) K/uL Lymph # (Auto) 1.4 (0.6-2.4) K/uL [place] # (Auto) 0.4 (0.0-0.8) K/uL Eos # (Auto) 0.0 (0.0-0.7) K/uL Baso # (Auto) 0.0 (0.0-0.1) K/uL Nucleated RBC % 0.0 /100WBC Nucleated RBCs # 0 K/uL Sodium 140 (136-148) mmol/L Potassium 4.7 (3.5-5.1) mmol/L Chloride 102 (98-107) mmol/L Carbon Dioxide 31.4 (21.0-32.0) mmol/L BUN 27 H (7.0-18.0) mg/dL Creatinine 1.0 (0.8-1.3) mg/dL Est Cr Clr Drug Dosing 64.58 mL/min Estimated GFR (MDRD) > 60.0 ml/min Glucose 272 H (74-106) mg/dL POC Glucose 295 H (60-110) mg/dL Calcium 9.1 (8.5-10.1) mg/dL Magnesium 1.9 (1.8-2.4) mg/dL Total Bilirubin 0.3 (0.2-1.0) mg/dL AST 16 (15-37) IU/L ALT 18 (14-63) IU/L Alkaline Phosphatase 64 (46-116) U/L Total Protein 6.7 (6.4-8.2) g/dL Albumin 2.9 L (3.4-5.0) g/dL Globulin 3.8 (2.6-4.0) g/dL Albumin/Globulin Ratio 0.8 L (0.9-1.6) Jason Results Last 24 Hours: Microbiology 01/27/20 15:30 Aerobic Blood Culture - Preliminary Blood - Venous - Lab Draw NO GROWTH AFTER 1 DAY Anaerobic Blood Culture - Preliminary NO GROWTH AFTER 1 DAY 01/27/20 15:10 Aerobic Blood Culture - Preliminary Blood - Venous NO GROWTH AFTER 1 DAY Anaerobic Blood Culture - Preliminary NO GROWTH AFTER 1 DAY Med Orders - Current: Current Medications Acetaminophen (Tylenol) 650 mg PO Q4H PRN PRN Reason: Pain (Mild 1-3)/fever Last Admin: 01/28/20 07:17 Dose: 650 mg Hydrocodone Bitart/Acetaminophen ([place] 325-10 Mg) 1 tab PO Q8H PRN PRN Reason: Pain Last Admin: 01/29/20 06:36 Dose: 1 tab Albuterol/Ipratropium (Duoneb 3.0-0.5 Mg/3 Ml) 3 ml NEB Q4HRRT PRN PRN Reason: Shortness Of Breath/wheezing Last Admin: 01/28/20 14:04 Dose: 3 ml Aspirin (Halfprin) 81 mg PO DAILY [facility] Last Admin: 01/29/20 08:54 Dose: 81 mg Budesonide/Formoterol Fumarate (Symbicort 160-4.5 Mcg) 0 gm INH BIDRT [facility] Last Admin: 01/29/20 07:05 Dose: Not Given Citalopram Hydrobromide (Celexa) 10 mg PO DAILY [facility] Last Admin: 01/29/20 08:55 Dose: 10 mg Clopidogrel Bisulfate (Plavix) 75 mg PO DAILY [facility] Last Admin: 01/29/20 08:54 Dose: 75 mg Docusate Sodium (Colace) 100 mg PO BID PRN PRN Reason: Constipation Heparin Sodium (Porcine) (Heparin Sodium) 5,000 units SUBCUT Q8H [facility] Last Admin: 01/29/20 01:16 Dose: 5,000 units Insulin Aspart (Novolog) 0 unit SUBCUT TIDAC [facility]; Protocol Last Admin: 01/29/20 07:30 Dose: 9 units Insulin Glargine (Lantus Solostar) 20 units SUBCUT BEDTIME [facility] Magnesium Hydroxide (Milk Of Magnesia) 30 ml PO Q12H PRN PRN Reason: Constipation Methylprednisolone Sodium Succinate (Solu-Medrol) 40 mg IVPUSH BID [facility] Last Admin: 01/29/20 08:57 Dose: 40 mg Metoprolol Tartrate (Lopressor) 50 mg PO BID [facility] Last Admin: 01/29/20 08:54 Dose: 50 mg Ondansetron HCl (Zofran Odt) 4 mg PO Q4H PRN PRN Reason: nausea, able to take PO Ondansetron HCl (Zofran) 4 mg IVPUSH Q4H PRN PRN Reason: Nausea Pantoprazole Sodium (Protonix) 40 mg PO ACBREAKFAST [facility] Last Admin: 01/29/20 06:37 Dose: 40 mg Polyethylene Glycol (Miralax) 17 gm PO DAILY PRN PRN Reason: Constipation Rosuvastatin Calcium (Crestor) 40 mg PO BEDTIME [facility] Last Admin: 01/28/20 20:42 Dose: 40 mg Sodium Chloride (Tift Nasal [place]) 1 ml NASBOTH Q2H PRN PRN Reason: Nasal Congestion Last Admin: 01/28/20 23:13 Dose: 1 spray Discontinued Medications Hydrocodone Bitart/Acetaminophen ([place] 325-7.5 Mg) 1 tab PO STAT ONE Stop: 01/27/20 16:13 Last Admin: 01/27/20 16:17 Dose: 1 tab Hydrocodone Bitart/Acetaminophen ([place] 325-5 Mg) 1 tab PO TID PRN PRN Reason: Pain Last Admin: 01/28/20 09:44 Dose: 1 tab Hydrocodone Bitart/Acetaminophen ([place] 325-10 Mg) 1 tab PO Q6H PRN PRN Reason: Pain Hydrocodone Bitart/Acetaminophen ([place] 325-5 Mg) 1 tab PO ONETIME ONE Stop: 01/28/20 11:15 Last Admin: 01/28/20 11:23 Dose: 1 tab Albuterol/Ipratropium (Duoneb 3.0-0.5 Mg/3 Ml) 3 ml NEB ONETIME ONE Stop: 01/27/20 15:17 Last Admin: 01/27/20 15:24 Dose: 3 ml Albuterol/Ipratropium (Duoneb 3.0-0.5 Mg/3 Ml) 3 ml NEB ONETIME ONE Stop: 01/27/20 15:27 Last Admin: 01/27/20 15:35 Dose: 3 ml Magnesium Sulfate 2 gm/ Premix 50 mls @ 50 mls/hr IV ONETIME ONE Stop: 01/27/20 16:27 Last Admin: 01/27/20 15:58 Dose: Not Given Magnesium Sulfate 1 gm/ Sodium (Chloride) 52 mls @ 104 mls/hr IV ONETIME ONE Stop: 01/27/20 16:29 Last Admin: 01/27/20 16:07 Dose: 104 mls/hr Magnesium Sulfate 1 gm/ Sodium (Chloride) 52 mls @ 104 mls/hr IV ONETIME ONE Stop: 01/27/20 17:14 Last Admin: 01/27/20 16:52 Dose: 104 mls/hr Lactated Ringer's (Ringers, Lactated) 1,000 mls @ 75 mls/hr IV ONETIME ONE Stop: 01/28/20 07:28 Last Admin: 01/27/20 18:28 Dose: 75 mls/hr Magnesium Sulfate 2 gm/ Premix 50 mls @ 25 mls/hr IV ONETIME ONE Stop: 01/28/20 10:16 Last Admin: 01/28/20 08:45 Dose: 25 mls/hr Insulin Glargine (Lantus Solostar) 15 units SUBCUT BEDTIME [facility] Last Admin: 01/28/20 20:55 Dose: 15 units Methylprednisolone Sodium Succinate (Solu-Medrol) 125 mg IVPUSH ONETIME ONE Stop: 01/27/20 15:30 Last Admin: 01/27/20 15:41 Dose: 125 mg - Exam Quality Assessment: Supplemental Oxygen General: Alert, Oriented, Cooperative, No Acute Distress Lungs: Clear to Auscultation, Decreased Breath Sounds, Rhonchi. No: Wheezing Cardiovascular: Regular Rate, Regular Rhythm GI/Abdominal Exam: Normal Bowel Sounds, Soft, Non-Tender, No Distention Extremities: Normal Inspection, No Pedal Edema Skin: Warm, Dry Sepsis Event Note - Evaluation Sepsis Screening Result: No Definite Risk - Focused Exam Vital Signs: Vital Signs Temp Pulse Pulse Resp BP BP Pulse Ox 01/29/20 08:54 98 120/59 L 01/29/20 03:50 36.4 C 92 18 136/66 97 01/29/20 00:00 36.5 C 89 22 H 119/60 95 Date Exam was Performed: 01/29/20 Time Exam was Performed: 13:22 - Problem List Review Problem List Initiated/Reviewed/Updated: Yes - My Orders Last 24 Hours: My Active Orders 01/28/20 14:54 Transfer Patient (Change bed) [ADT] Routine 01/28/20 15:23 Acetaminophen/HYDROcodone [[place] 325-10 MG] 1 tab PO Q8H PRN 01/28/20 16:05 Sodium Chloride 0.65% [Tift Nasal [place]] 1 ml NASBOTH Q2H PRN 01/29/20 21:00 Insulin Glarg,Human.Rec.Analog [LantUS Solostar] 20 units SUBCUT BEDTIME - Plan Plan:: A: 1. Acute on chronic hypoxic respiratory failure 2. Hyperglycemia 3. PMH COPD, CAD, DM2, chronic pain P: 1. Will try to use nasal cannula overnight but at higher rate due to sleep apnea and see if O2 sats remain stable overnight. Will go up on Glargine to 20 U at night. ISS. patient will need outpatient sleep study. Dispo: 1-2 days.
[2020-01-29] MEDS: Acetaminophen 325 MG Tab PO PRN (13:16)
[2020-01-29] MEDS: Sodium Chloride 0.65% Nasal Spray 45 ML Bottle NASBOTH PRN (13:18)
[2020-01-29] MEDS: Albuterol/Ipratropium 3.0-0.5 MG/3 ML Neb Soln NEB PRN (14:29)
[2020-01-29] MEDS: cefTRIAXone 2 GM in Premix Bag 1 BAG IV SCH (15:07)
--- NOTE | 2020-01-29 15:09 | CR ---
Chest: Portable view of the chest was obtained. Comparison: Prior chest CT study of 01/24/20 and chest x-ray of 12/30/19. Increasing parenchymal density within the left base from prior chest x-ray. Parenchymal density within the right lung base is seen and also slightly increased. Heart size is within normal limits for portable technique. Tortuous thoracic aorta is seen. Bony structures are grossly intact. Impression: 1. Increasing density within both sides of the lung bases. Findings have worsened from previous chest x-ray. Differential includes chronic increased aspiration change or new bibasilar areas of pneumonia superimposed upon chronic change. Diagnostic code #3 This report was dictated in [place] Standard Time
[2020-01-29] MEDS: Lactated Ringers 1,000 ML IV SCH (15:32)
[2020-01-29] MEDS: Azithromycin 500 MG in Sodium Chloride 0.9% 250 ML IV SCH (15:34)
[2020-01-29] MEDS: Insulin Glargine,Human Rec. Analog 100 Units/ML 3 ML Pen SUBCUT SCH (20:28)
[2020-01-29] MEDS ORDERED: Insulin Glargine,Human Rec. Analog 100 Units/ML 3 ML Pen SUBCUT SCH (21:00)
[2020-01-29] MEDS: Rosuvastatin 10 MG Tab PO SCH (21:25)
[2020-01-30] MEDS: Heparin Sodium 5,000 Units/ML Vial SUBCUT SCH ×3 (01:36→18:37)
[2020-01-30] MEDS: Acetaminophen 325 MG Tab PO PRN (01:36)
[2020-01-30] MEDS: Lactated Ringers 1,000 ML IV SCH (04:09)
[2020-01-30] MEDS: Budesonide/Formoterol 160-4.5 MCG/Puff 6 GM Inhaler INH SCH ×3 (06:06→20:47)
[2020-01-30] MEDS: Acetaminophen/HYDROcodone 325-10 MG Tab PO PRN ×3 (06:09→22:36)
[2020-01-30] MEDS: Pantoprazole 40 MG Tab.CR PO SCH (06:29)
[2020-01-30 07:36] LABS: BLOOD UREA NITROGEN,BUN 29 mg/dL (7.0-18.0); CARBON DIOXIDE,CO2 33.5 mmol/L (21.0-32.0); CHLORIDE,CL 104 mmol/L (98-107); GLUCOSE RANDOM 272 mg/dL (74-106); POTASSIUM,K 4.7 mmol/L (3.5-5.1); SODIUM,NA 141 mmol/L (136-148)
[2020-01-30] MEDS: Sodium Chloride 0.65% Nasal Spray 45 ML Bottle NASBOTH PRN (08:06)
[2020-01-30] MEDS: Insulin Aspart 100 Units/ML 3 ML Pen SUBCUT SCH ×3 (08:06→17:50)
[2020-01-30] MEDS: Metoprolol Tartrate 50 MG Tab PO SCH ×2 (08:22→20:49)
[2020-01-30] MEDS: methylPREDNISolone Sodium Succinate 40 MG/1 ML SDV IVPUSH SCH ×2 (08:22→20:50)
[2020-01-30] MEDS: Clopidogrel 75 MG Tab PO SCH (08:22)
[2020-01-30] MEDS: Citalopram 20 MG Tab PO SCH (08:22)
[2020-01-30] MEDS: Aspirin 81 MG Tab.EC PO SCH (08:23)
--- NOTE | 2020-01-30 11:19 | PN ---
THC Physician - Brief Progress UpoyPTZILLSFC91/01/2020 11:16[facility] Ryne Gr, [place] - [facility] LittleDate of Service 01/30/2020 11:16HPI/Events o f Note Chart reviewed. On camera initially presented to the hospital with acute hypoxic respiratory f ailurePatient was placed on the BiPAP improved next day. Patient was suspected to have COPD exacerba tionPatient was sent to floor after improvement. On the floor he became more tachypneic and more hyp oxic. Lactic acid has increased to 2.5Patient was sent back to the ICU requiring BiPAPChest x-ray sh ows bilateral infiltrate in the bases worse than before.A/P:1. Acute on chronic respiratory failure, hypoxemic and hypercapnicMost like related to pneumonia and acute exacerbation of COPD.Continue stero idsContinue ceftriaxone azithromycinContinue DuoNebLactic acid has trended down.2. AECOPD-As above.3. B/l lower lobe infiltratesProbably related to pneumoniaAgree with continuation of ceftriaxone azithr omycin.5. GI/DVT prophylaxis - PPI and Heparin SC.Interventions Major-Other: Respiratory failureMinor -Clinical assessment - ordering diagnostic testsElectronically Signed by: ASHUTOSH SANDERS) on 0 01/30/2020 11:19
[2020-01-30] MEDS: Gabapentin 300 MG Cap PO SCH ×3 (11:20→20:49)
--- NOTE | 2020-01-30 14:11 | PCM.PN ---
- General Info Date of Service: 01/30/20 - Review of Systems Systems Review Comment:: feeling better, but still short of breath, with generalized weakness. - Patient Data Vitals - Most Recent: Last Vital Signs Temp 36.2 C 01/30/20 12:00 Pulse 100 01/30/20 08:22 Resp 30 H 01/30/20 13:00 BP 141/77 H 01/30/20 13:00 Pulse Ox 97 01/30/20 13:00 Weight - Most Recent: 110.2 kg I&O - Last 24 Hours: Intake & Output 01/29/20 01/30/20 01/30/20 22:59 06:59 14:59 Intake Total 400 1695 Output Total 300 750 Balance 100 945 Lab Results Last 24 Hours: Laboratory Results - last 24 hr 01/29/20 01/29/20 01/29/20 Range/Units 14:51 15:45 16:34 WBC (4.0-11.0) K/uL RBC (4.50-5.90) M/uL Hgb (13.0-17.0) g/dL Hct (38.0-50.0) % MCV (80.0-98.0) fL MCH (27.0-32.0) pg MCHC (31.0-37.0) g/dL RDW Std Deviation (28.0-62.0) fl RDW Coeff of [place]occo (11.0-15.0) % Plt Count (150-400) K/uL MPV (7.40-12.00) fL Neut % (Auto) (48.0-80.0) % Lymph % (Auto) (16.0-40.0) % [place] % (Auto) (0.0-15.0) % Eos % (Auto) (0.0-7.0) % Baso % (Auto) (0.0-1.5) % Neut # (Auto) (1.4-5.7) K/uL Lymph # (Auto) (0.6-2.4) K/uL [place] # (Auto) (0.0-0.8) K/uL Eos # (Auto) (0.0-0.7) K/uL Baso # (Auto) (0.0-0.1) K/uL Nucleated RBC % /100WBC Nucleated RBCs # K/uL ABG pH 7.399 (7.35-7.45) ABG pCO2 48 H (35-45) mmHG ABG pO2 94 (75-100) mmHG ABG HCO3 30 H (22-26) mEq/L ABG Total CO2 27.1 ABG Base Excess 4.1 H (-2.0-2.0) Lactate 2.2 H* (0.20-2.00) mmol/L Sodium (136-148) mmol/L Potassium (3.5-5.1) mmol/L Chloride (98-107) mmol/L Carbon Dioxide (21.0-32.0) mmol/L BUN (7.0-18.0) mg/dL Creatinine (0.8-1.3) mg/dL Est Cr Clr Drug Dosing mL/min Estimated GFR (MDRD) ml/min Glucose (74-106) mg/dL POC Glucose 325 H (60-110) mg/dL Calcium (8.5-10.1) mg/dL 01/29/20 01/29/20 01/30/20 Range/Units 20:20 20:20 07:10 WBC (4.0-11.0) K/uL RBC (4.50-5.90) M/uL Hgb (13.0-17.0) g/dL Hct (38.0-50.0) % MCV (80.0-98.0) fL MCH (27.0-32.0) pg MCHC (31.0-37.0) g/dL RDW Std Deviation (28.0-62.0) fl RDW Coeff of [place]occo (11.0-15.0) % Plt Count (150-400) K/uL MPV (7.40-12.00) fL Neut % (Auto) (48.0-80.0) % Lymph % (Auto) (16.0-40.0) % [place] % (Auto) (0.0-15.0) % Eos % (Auto) (0.0-7.0) % Baso % (Auto) (0.0-1.5) % Neut # (Auto) (1.4-5.7) K/uL Lymph # (Auto) (0.6-2.4) K/uL [place] # (Auto) (0.0-0.8) K/uL Eos # (Auto) (0.0-0.7) K/uL Baso # (Auto) (0.0-0.1) K/uL Nucleated RBC % /100WBC Nucleated RBCs # K/uL ABG pH (7.35-7.45) ABG pCO2 (35-45) mmHG ABG pO2 (75-100) mmHG ABG HCO3 (22-26) mEq/L ABG Total CO2 ABG Base Excess (-2.0-2.0) Lactate 2.5 H* (0.20-2.00) mmol/L Sodium (136-148) mmol/L Potassium (3.5-5.1) mmol/L Chloride (98-107) mmol/L Carbon Dioxide (21.0-32.0) mmol/L BUN (7.0-18.0) mg/dL Creatinine (0.8-1.3) mg/dL Est Cr Clr Drug Dosing mL/min Estimated GFR (MDRD) ml/min Glucose (74-106) mg/dL POC Glucose 324 H 271 H (60-110) mg/dL Calcium (8.5-10.1) mg/dL 01/30/20 01/30/20 01/30/20 Range/Units 07:15 07:15 07:15 WBC 8.85 (4.0-11.0) K/uL RBC 4.21 L (4.50-5.90) M/uL Hgb 12.2 L (13.0-17.0) g/dL Hct 39.1 (38.0-50.0) % MCV 92.9 (80.0-98.0) fL MCH 29.0 (27.0-32.0) pg MCHC 31.2 (31.0-37.0) g/dL RDW Std Deviation 49.1 (28.0-62.0) fl RDW Coeff of [place]occo 14 (11.0-15.0) % Plt Count 212 (150-400) K/uL MPV 10.00 (7.40-12.00) fL Neut % (Auto) 74.5 (48.0-80.0) % Lymph % (Auto) 18.5 (16.0-40.0) % [place] % (Auto) 6.9 (0.0-15.0) % Eos % (Auto) 0.0 (0.0-7.0) % Baso % (Auto) 0.1 (0.0-1.5) % Neut # (Auto) 6.6 H (1.4-5.7) K/uL Lymph # (Auto) 1.6 (0.6-2.4) K/uL [place] # (Auto) 0.6 (0.0-0.8) K/uL Eos # (Auto) 0.0 (0.0-0.7) K/uL Baso # (Auto) 0.0 (0.0-0.1) K/uL Nucleated RBC % 0.0 /100WBC Nucleated RBCs # 0 K/uL ABG pH (7.35-7.45) ABG pCO2 (35-45) mmHG ABG pO2 (75-100) mmHG ABG HCO3 (22-26) mEq/L ABG Total CO2 ABG Base Excess (-2.0-2.0) Lactate 0.8 (0.20-2.00) mmol/L Sodium 141 (136-148) mmol/L Potassium 4.7 (3.5-5.1) mmol/L Chloride 104 (98-107) mmol/L Carbon Dioxide 33.5 H (21.0-32.0) mmol/L BUN 29 H (7.0-18.0) mg/dL Creatinine 0.9 (0.8-1.3) mg/dL Est Cr Clr Drug Dosing 71.75 mL/min Estimated GFR (MDRD) > 60.0 ml/min Glucose 272 H (74-106) mg/dL POC Glucose (60-110) mg/dL Calcium 8.6 (8.5-10.1) mg/dL Jason Results Last 24 Hours: Microbiology 01/27/20 15:30 Aerobic Blood Culture - Preliminary Blood - Venous - Lab Draw NO GROWTH AFTER 2 DAYS Anaerobic Blood Culture - Preliminary NO GROWTH AFTER 2 DAYS 01/27/20 15:10 Aerobic Blood Culture - Preliminary Blood - Venous NO GROWTH AFTER 2 DAYS Anaerobic Blood Culture - Preliminary NO GROWTH AFTER 2 DAYS Med Orders - Current: Current Medications Acetaminophen (Tylenol) 650 mg PO Q4H PRN PRN Reason: Pain (Mild 1-3)/fever Last Admin: 01/30/20 01:36 Dose: 650 mg Hydrocodone Bitart/Acetaminophen ([place] 325-10 Mg) 1 tab PO Q8H PRN PRN Reason: Pain Last Admin: 01/30/20 06:09 Dose: 1 tab Albuterol/Ipratropium (Duoneb 3.0-0.5 Mg/3 Ml) 3 ml NEB Q4HRRT PRN PRN Reason: Shortness Of Breath/wheezing Last Admin: 01/29/20 14:29 Dose: 3 ml Aspirin (Halfprin) 81 mg PO DAILY [facility] Last Admin: 01/30/20 08:23 Dose: 81 mg Citalopram Hydrobromide (Celexa) 10 mg PO DAILY [facility] Last Admin: 01/30/20 08:22 Dose: 10 mg Clopidogrel Bisulfate (Plavix) 75 mg PO DAILY [facility] Last Admin: 01/30/20 08:22 Dose: 75 mg Docusate Sodium (Colace) 100 mg PO BID PRN PRN Reason: Constipation Gabapentin (Neurontin) 600 mg PO DAILY@0900,2100 [facility] Gabapentin (Neurontin) 300 mg PO 1200,1800 [facility] Last Admin: 01/30/20 11:20 Dose: 300 mg Heparin Sodium (Porcine) (Heparin Sodium) 5,000 units SUBCUT Q8H [facility] Last Admin: 01/30/20 11:15 Dose: 5,000 units Azithromycin 500 mg/ Sodium (Chloride) 250 mls @ 250 mls/hr IV Q24H [facility] Last Admin: 01/29/20 15:34 Dose: 250 mls/hr Ceftriaxone Sodium/Dextrose 2 (gm/ Premix) 50 mls @ 100 mls/hr IV Q24H [facility] Last Admin: 01/29/20 15:07 Dose: 100 mls/hr Insulin Aspart (Novolog) 0 unit SUBCUT TIDAC [facility]; Protocol Last Admin: 01/30/20 12:53 Dose: 9 units Insulin Glargine (Lantus Solostar) 25 units SUBCUT BEDTIME [facility] Last Admin: 01/29/20 20:28 Dose: 25 units Magnesium Hydroxide (Milk Of Magnesia) 30 ml PO Q12H PRN PRN Reason: Constipation Methylprednisolone Sodium Succinate (Solu-Medrol) 40 mg IVPUSH BID [facility] Last Admin: 01/30/20 08:22 Dose: 40 mg Metoprolol Tartrate (Lopressor) 50 mg PO BID [facility] Last Admin: 01/30/20 08:22 Dose: 50 mg Ondansetron HCl (Zofran Odt) 4 mg PO Q4H PRN PRN Reason: nausea, able to take PO Ondansetron HCl (Zofran) 4 mg IVPUSH Q4H PRN PRN Reason: Nausea Pantoprazole Sodium (Protonix) 40 mg PO ACBREAKFAST [facility] Last Admin: 01/30/20 06:29 Dose: 40 mg Budesonide/Formoterol 160-4.5 Mcg/Puff 6 Gm Inhaler 2 each INH BIDRT [facility] Last Admin: 01/30/20 11:17 Dose: 2 each Diclofenac Sodium 1% (Gel) 1 each TOP QID PRN PRN Reason: pain and inflammation Last Admin: 01/30/20 11:18 Dose: 1 each Polyethylene Glycol (Miralax) 17 gm PO DAILY PRN PRN Reason: Constipation Rosuvastatin Calcium (Crestor) 40 mg PO BEDTIME [facility] Last Admin: 01/29/20 21:25 Dose: 40 mg Sodium Chloride ([place] Nasal [place]) 1 ml NASBOTH Q2H PRN PRN Reason: Nasal Congestion Last Admin: 01/30/20 08:06 Dose: 1 spray Discontinued Medications Hydrocodone Bitart/Acetaminophen ([place] 325-7.5 Mg) 1 tab PO STAT ONE Stop: 01/27/20 16:13 Last Admin: 01/27/20 16:17 Dose: 1 tab Hydrocodone Bitart/Acetaminophen ([place] 325-5 Mg) 1 tab PO TID PRN PRN Reason: Pain Last Admin: 01/28/20 09:44 Dose: 1 tab Hydrocodone Bitart/Acetaminophen ([place] 325-10 Mg) 1 tab PO Q6H PRN PRN Reason: Pain Hydrocodone Bitart/Acetaminophen ([place] 325-5 Mg) 1 tab PO ONETIME ONE Stop: 01/28/20 11:15 Last Admin: 01/28/20 11:23 Dose: 1 tab Albuterol/Ipratropium (Duoneb 3.0-0.5 Mg/3 Ml) 3 ml NEB ONETIME ONE Stop: 01/27/20 15:17 Last Admin: 01/27/20 15:24 Dose: 3 ml Albuterol/Ipratropium (Duoneb 3.0-0.5 Mg/3 Ml) 3 ml NEB ONETIME ONE Stop: 01/27/20 15:27 Last Admin: 01/27/20 15:35 Dose: 3 ml Budesonide/Formoterol Fumarate (Symbicort 160-4.5 Mcg) 0 gm INH BIDRT [facility] Last Admin: 01/30/20 06:06 Dose: Not Given Magnesium Sulfate 2 gm/ Premix 50 mls @ 50 mls/hr IV ONETIME ONE Stop: 01/27/20 16:27 Last Admin: 01/27/20 15:58 Dose: Not Given Magnesium Sulfate 1 gm/ Sodium (Chloride) 52 mls @ 104 mls/hr IV ONETIME ONE Stop: 01/27/20 16:29 Last Admin: 01/27/20 16:07 Dose: 104 mls/hr Magnesium Sulfate 1 gm/ Sodium (Chloride) 52 mls @ 104 mls/hr IV ONETIME ONE Stop: 01/27/20 17:14 Last Admin: 01/27/20 16:52 Dose: 104 mls/hr Lactated Ringer's (Ringers, Lactated) 1,000 mls @ 75 mls/hr IV ONETIME ONE Stop: 01/28/20 07:28 Last Admin: 01/27/20 18:28 Dose: 75 mls/hr Magnesium Sulfate 2 gm/ Premix 50 mls @ 25 mls/hr IV ONETIME ONE Stop: 01/28/20 10:16 Last Admin: 01/28/20 08:45 Dose: 25 mls/hr Lactated Ringer's (Ringers, Lactated) 1,000 mls @ 75 mls/hr IV ASDIRECTED [facility] Last Admin: 01/30/20 04:09 Dose: 75 mls/hr Insulin Glargine (Lantus Solostar) 15 units SUBCUT BEDTIME [facility] Last Admin: 01/28/20 20:55 Dose: 15 units Insulin Glargine (Lantus Solostar) 20 units SUBCUT BEDTIME [facility] Methylprednisolone Sodium Succinate (Solu-Medrol) 125 mg IVPUSH ONETIME ONE Stop: 01/27/20 15:30 Last Admin: 01/27/20 15:41 Dose: 125 mg - Exam General: Alert, Oriented Neck: Supple Lungs: Normal Respiratory Effort, Decreased Breath Sounds, Rhonchi GI/Abdominal Exam: Normal Bowel Sounds, Soft, Non-Tender Extremities: Non-Tender, No Pedal Edema Skin: Warm, Dry, Intact Sepsis Event Note - Evaluation Sepsis Screening Result: No Definite Risk - Focused Exam Vital Signs: Vital Signs Temp Pulse Resp BP BP Pulse Ox Pulse Ox 01/30/20 13:00 30 H 141/77 H 97 01/30/20 12:00 36.2 C 18 120/59 L 01/30/20 11:00 20 127/58 L 98 98 01/30/20 10:00 26 H 130/68 99 01/30/20 09:00 22 H 126/54 L 96 01/30/20 08:22 100 132/59 L 01/30/20 08:00 36.2 C 24 H 132/59 L 96 01/30/20 06:59 18 139/71 97 01/30/20 06:00 30 H 130/69 96 01/30/20 05:00 21 H 147/88 H 97 01/30/20 04:00 16 122/61 98 01/30/20 03:00 22 H 120/68 100 Date Exam was Performed: 01/30/20 Time Exam was Performed: 14:08 - Problem List Review Problem List Initiated/Reviewed/Updated: Yes - My Orders Last 24 Hours: My Active Orders 01/30/20 10:27 Patient's Own Medication [Ptom] 1 each TOP QID PRN 01/30/20 12:00 Gabapentin [Neurontin] 300 mg PO 1200,1800 01/30/20 21:00 Gabapentin [Neurontin] 600 mg PO DAILY@0900,2100 - Plan Plan:: 79 yo male with COPD exacerebation and pneumonia. We will continue solumedrol, duonebs, prn Bipap at night, Rocephin and azithromycin.
[2020-01-30] MEDS: cefTRIAXone 2 GM in Premix Bag 1 BAG IV SCH (14:19)
[2020-01-30] MEDS: Azithromycin 500 MG in Sodium Chloride 0.9% 250 ML IV SCH (15:16)
[2020-01-30] MEDS: Rosuvastatin 10 MG Tab PO SCH (20:49)
[2020-01-30] MEDS: Insulin Glargine,Human Rec. Analog 100 Units/ML 3 ML Pen SUBCUT SCH (20:50)
[2020-01-31] MEDS: Heparin Sodium 5,000 Units/ML Vial SUBCUT SCH ×3 (01:26→18:00)
[2020-01-31 05:41] LABS: BLOOD UREA NITROGEN,BUN 28 mg/dL (7.0-18.0); CARBON DIOXIDE,CO2 30.9 mmol/L (21.0-32.0); CHLORIDE,CL 103 mmol/L (98-107); GLUCOSE RANDOM 269 mg/dL (74-106); POTASSIUM,K 4.8 mmol/L (3.5-5.1); SODIUM,NA 138 mmol/L (136-148)
[2020-01-31] MEDS: Budesonide/Formoterol 160-4.5 MCG/Puff 6 GM Inhaler INH SCH ×2 (06:14→20:39)
[2020-01-31] MEDS: Acetaminophen/HYDROcodone 325-10 MG Tab PO PRN ×3 (06:36→22:04)
[2020-01-31] MEDS: Pantoprazole 40 MG Tab.CR PO SCH (06:36)
[2020-01-31] MEDS: Insulin Aspart 100 Units/ML 3 ML Pen SUBCUT SCH ×3 (07:56→18:03)
[2020-01-31] MEDS: Citalopram 20 MG Tab PO SCH (08:54)
[2020-01-31] MEDS: Metoprolol Tartrate 50 MG Tab PO SCH ×2 (08:55→20:36)
[2020-01-31] MEDS: Furosemide 40 MG Tab PO SCH (08:58)
[2020-01-31] MEDS: Aspirin 81 MG Tab.EC PO SCH (08:58)
[2020-01-31] MEDS: Clopidogrel 75 MG Tab PO SCH (08:59)
[2020-01-31] MEDS: Gabapentin 300 MG Cap PO SCH ×4 (08:59→20:37)
[2020-01-31] MEDS ORDERED: methylPREDNISolone Sodium Succinate 40 MG/1 ML SDV IVPUSH SCH (09:00)
--- NOTE | 2020-01-31 11:23 | PCM.PN ---
- General Info Date of Service: 01/31/20 Subjective Update: no acute events overnight. No BiPAP overnight. O2 sats >88%. Feels better today. No chest pain. - Patient Data Vitals - Most Recent: Last Vital Signs Temp 36.4 C 01/31/20 07:52 Pulse 100 01/31/20 08:55 Resp 27 H 01/31/20 10:00 BP 126/70 01/31/20 10:00 Pulse Ox 94 L 01/31/20 10:00 Weight - Most Recent: 110.2 kg I&O - Last 24 Hours: Intake & Output 01/30/20 01/31/20 01/31/20 22:59 06:59 14:59 Intake Total 1500 350 Output Total 300 500 Balance 1200 -150 Lab Results Last 24 Hours: Laboratory Results - last 24 hr 01/30/20 01/30/20 01/30/20 Range/Units 12:25 17:28 20:43 WBC (4.0-11.0) K/uL RBC (4.50-5.90) M/uL Hgb (13.0-17.0) g/dL Hct (38.0-50.0) % MCV (80.0-98.0) fL MCH (27.0-32.0) pg MCHC (31.0-37.0) g/dL RDW Std Deviation (28.0-62.0) fl RDW Coeff of [place] (11.0-15.0) % Plt Count (150-400) K/uL MPV (7.40-12.00) fL Neut % (Auto) (48.0-80.0) % Lymph % (Auto) (16.0-40.0) % [place] % (Auto) (0.0-15.0) % Eos % (Auto) (0.0-7.0) % Baso % (Auto) (0.0-1.5) % Neut # (Auto) (1.4-5.7) K/uL Lymph # (Auto) (0.6-2.4) K/uL [place] # (Auto) (0.0-0.8) K/uL Eos # (Auto) (0.0-0.7) K/uL Baso # (Auto) (0.0-0.1) K/uL Nucleated RBC % /100WBC Nucleated RBCs # K/uL Sodium (136-148) mmol/L Potassium (3.5-5.1) mmol/L Chloride (98-107) mmol/L Carbon Dioxide (21.0-32.0) mmol/L BUN (7.0-18.0) mg/dL Creatinine (0.8-1.3) mg/dL Est Cr Clr Drug Dosing mL/min Estimated GFR (MDRD) ml/min Glucose (74-106) mg/dL POC Glucose 250 H 241 H 295 H (60-110) mg/dL Calcium (8.5-10.1) mg/dL 01/31/20 01/31/20 01/31/20 Range/Units 05:23 05:23 06:39 WBC 8.81 (4.0-11.0) K/uL RBC 4.50 (4.50-5.90) M/uL Hgb 13.1 (13.0-17.0) g/dL Hct 41.8 (38.0-50.0) % MCV 92.9 (80.0-98.0) fL MCH 29.1 (27.0-32.0) pg MCHC 31.3 (31.0-37.0) g/dL RDW Std Deviation 48.6 (28.0-62.0) fl RDW Coeff of [place] 14 (11.0-15.0) % Plt Count 224 (150-400) K/uL MPV 10.00 (7.40-12.00) fL Neut % (Auto) 75.0 (48.0-80.0) % Lymph % (Auto) 19.6 (16.0-40.0) % [place] % (Auto) 5.3 (0.0-15.0) % Eos % (Auto) 0.0 (0.0-7.0) % Baso % (Auto) 0.1 (0.0-1.5) % Neut # (Auto) 6.6 H (1.4-5.7) K/uL Lymph # (Auto) 1.7 (0.6-2.4) K/uL [place] # (Auto) 0.5 (0.0-0.8) K/uL Eos # (Auto) 0.0 (0.0-0.7) K/uL Baso # (Auto) 0.0 (0.0-0.1) K/uL Nucleated RBC % 0.0 /100WBC Nucleated RBCs # 0 K/uL Sodium 138 (136-148) mmol/L Potassium 4.8 (3.5-5.1) mmol/L Chloride 103 (98-107) mmol/L Carbon Dioxide 30.9 (21.0-32.0) mmol/L BUN 28 H (7.0-18.0) mg/dL Creatinine 0.9 (0.8-1.3) mg/dL Est Cr Clr Drug Dosing 71.75 mL/min Estimated GFR (MDRD) > 60.0 ml/min Glucose 269 H (74-106) mg/dL POC Glucose 269 H (60-110) mg/dL Calcium 8.8 (8.5-10.1) mg/dL Jason Results Last 24 Hours: Microbiology 01/27/20 15:30 Aerobic Blood Culture - Preliminary Blood - Venous - Lab Draw NO GROWTH AFTER 3 DAYS Anaerobic Blood Culture - Preliminary NO GROWTH AFTER 3 DAYS 01/27/20 15:10 Aerobic Blood Culture - Preliminary Blood - Venous NO GROWTH AFTER 3 DAYS Anaerobic Blood Culture - Preliminary NO GROWTH AFTER 3 DAYS Med Orders - Current: Current Medications Acetaminophen (Tylenol) 650 mg PO Q4H PRN PRN Reason: Pain (Mild 1-3)/fever Last Admin: 01/30/20 01:36 Dose: 650 mg Hydrocodone Bitart/Acetaminophen ([place] 325-10 Mg) 1 tab PO Q8H PRN PRN Reason: Pain Last Admin: 01/31/20 06:36 Dose: 1 tab Albuterol/Ipratropium (Duoneb 3.0-0.5 Mg/3 Ml) 3 ml NEB Q4HRRT PRN PRN Reason: Shortness Of Breath/wheezing Last Admin: 01/29/20 14:29 Dose: 3 ml Aspirin (Halfprin) 81 mg PO DAILY [facility] Last Admin: 01/31/20 08:58 Dose: 81 mg Azithromycin (Zithromax) 500 mg PO Q24H [facility] Citalopram Hydrobromide (Celexa) 10 mg PO DAILY [facility] Last Admin: 01/31/20 08:54 Dose: 10 mg Clopidogrel Bisulfate (Plavix) 75 mg PO DAILY [facility] Last Admin: 01/31/20 08:59 Dose: 75 mg Docusate Sodium (Colace) 100 mg PO BID PRN PRN Reason: Constipation Furosemide (Lasix) 40 mg PO DAILY [facility] Last Admin: 01/31/20 08:58 Dose: 40 mg Gabapentin (Neurontin) 600 mg PO DAILY@0900,2100 [facility] Last Admin: 01/31/20 08:59 Dose: 600 mg Gabapentin (Neurontin) 300 mg PO 1200,1800 [facility] Last Admin: 01/30/20 18:36 Dose: 300 mg Heparin Sodium (Porcine) (Heparin Sodium) 5,000 units SUBCUT Q8H [facility] Last Admin: 01/31/20 10:30 Dose: 5,000 units Ceftriaxone Sodium/Dextrose 2 (gm/ Premix) 50 mls @ 100 mls/hr IV Q24H [facility] Last Admin: 01/30/20 14:19 Dose: 100 mls/hr Insulin Aspart (Novolog) 0 unit SUBCUT TIDAC [facility]; Protocol Last Admin: 01/31/20 07:56 Dose: 9 units Insulin Glargine (Lantus Solostar) 25 units SUBCUT BEDTIME [facility] Last Admin: 01/30/20 20:50 Dose: 25 units Magnesium Hydroxide (Milk Of Magnesia) 30 ml PO Q12H PRN PRN Reason: Constipation Methylprednisolone Sodium Succinate (Solu-Medrol) 40 mg IVPUSH DAILY [facility] Last Admin: 01/31/20 09:00 Dose: 40 mg Metoprolol Tartrate (Lopressor) 50 mg PO BID [facility] Last Admin: 01/31/20 08:55 Dose: 50 mg Ondansetron HCl (Zofran Odt) 4 mg PO Q4H PRN PRN Reason: nausea, able to take PO Ondansetron HCl (Zofran) 4 mg IVPUSH Q4H PRN PRN Reason: Nausea Pantoprazole Sodium (Protonix) 40 mg PO ACBREAKFAST [facility] Last Admin: 01/31/20 06:36 Dose: 40 mg Budesonide/Formoterol 160-4.5 Mcg/Puff 6 Gm Inhaler 2 each INH BIDRT [facility] Last Admin: 01/31/20 06:14 Dose: 2 each Diclofenac Sodium 1% (Gel) 1 each TOP QID PRN PRN Reason: pain and inflammation Last Admin: 01/30/20 20:48 Dose: 1 each Polyethylene Glycol (Miralax) 17 gm PO DAILY PRN PRN Reason: Constipation Rosuvastatin Calcium (Crestor) 40 mg PO BEDTIME [facility] Last Admin: 01/30/20 20:49 Dose: 40 mg Sodium Chloride ([place] Nasal [place]) 1 ml NASBOTH Q2H PRN PRN Reason: Nasal Congestion Last Admin: 01/30/20 08:06 Dose: 1 spray Discontinued Medications Hydrocodone Bitart/Acetaminophen ([place] 325-7.5 Mg) 1 tab PO STAT ONE Stop: 01/27/20 16:13 Last Admin: 01/27/20 16:17 Dose: 1 tab Hydrocodone Bitart/Acetaminophen ([place] 325-5 Mg) 1 tab PO TID PRN PRN Reason: Pain Last Admin: 01/28/20 09:44 Dose: 1 tab Hydrocodone Bitart/Acetaminophen ([place] 325-10 Mg) 1 tab PO Q6H PRN PRN Reason: Pain Hydrocodone Bitart/Acetaminophen ([place] 325-5 Mg) 1 tab PO ONETIME ONE Stop: 01/28/20 11:15 Last Admin: 01/28/20 11:23 Dose: 1 tab Albuterol/Ipratropium (Duoneb 3.0-0.5 Mg/3 Ml) 3 ml NEB ONETIME ONE Stop: 01/27/20 15:17 Last Admin: 01/27/20 15:24 Dose: 3 ml Albuterol/Ipratropium (Duoneb 3.0-0.5 Mg/3 Ml) 3 ml NEB ONETIME ONE Stop: 01/27/20 15:27 Last Admin: 01/27/20 15:35 Dose: 3 ml Budesonide/Formoterol Fumarate (Symbicort 160-4.5 Mcg) 0 gm INH BIDRT [facility] Last Admin: 01/30/20 06:06 Dose: Not Given Magnesium Sulfate 2 gm/ Premix 50 mls @ 50 mls/hr IV ONETIME ONE Stop: 01/27/20 16:27 Last Admin: 01/27/20 15:58 Dose: Not Given Magnesium Sulfate 1 gm/ Sodium (Chloride) 52 mls @ 104 mls/hr IV ONETIME ONE Stop: 01/27/20 16:29 Last Admin: 01/27/20 16:07 Dose: 104 mls/hr Magnesium Sulfate 1 gm/ Sodium (Chloride) 52 mls @ 104 mls/hr IV ONETIME ONE Stop: 01/27/20 17:14 Last Admin: 01/27/20 16:52 Dose: 104 mls/hr Lactated Ringer's (Ringers, Lactated) 1,000 mls @ 75 mls/hr IV ONETIME ONE Stop: 01/28/20 07:28 Last Admin: 01/27/20 18:28 Dose: 75 mls/hr Magnesium Sulfate 2 gm/ Premix 50 mls @ 25 mls/hr IV ONETIME ONE Stop: 01/28/20 10:16 Last Admin: 01/28/20 08:45 Dose: 25 mls/hr Azithromycin 500 mg/ Sodium (Chloride) 250 mls @ 250 mls/hr IV Q24H [facility] Last Admin: 01/30/20 15:16 Dose: 250 mls/hr Lactated Ringer's (Ringers, Lactated) 1,000 mls @ 75 mls/hr IV ASDIRECTED [facility] Last Admin: 01/30/20 04:09 Dose: 75 mls/hr Insulin Glargine (Lantus Solostar) 15 units SUBCUT BEDTIME [facility] Last Admin: 01/28/20 20:55 Dose: 15 units Insulin Glargine (Lantus Solostar) 20 units SUBCUT BEDTIME [facility] Methylprednisolone Sodium Succinate (Solu-Medrol) 125 mg IVPUSH ONETIME ONE Stop: 01/27/20 15:30 Last Admin: 01/27/20 15:41 Dose: 125 mg Methylprednisolone Sodium Succinate (Solu-Medrol) 40 mg IVPUSH BID [facility] Last Admin: 01/30/20 20:50 Dose: 40 mg - Exam Quality Assessment: Supplemental Oxygen General: Alert, Oriented, Cooperative Lungs: Clear to Auscultation, Decreased Breath Sounds, Rhonchi. No: Wheezing Cardiovascular: Regular Rate, Regular Rhythm GI/Abdominal Exam: Normal Bowel Sounds, Soft, Non-Tender Extremities: Normal Inspection, No Pedal Edema Skin: Warm, Dry Sepsis Event Note - Evaluation Sepsis Screening Result: No Definite Risk - Focused Exam Vital Signs: Vital Signs Temp Pulse Resp BP BP Pulse Ox 01/31/20 10:00 27 H 126/70 94 L 01/31/20 08:55 100 129/56 L 01/31/20 08:00 19 119/52 L 96 03/02/20 07:52 36.4 C 14 117/56 L 96 01/31/20 07:00 20 119/56 L 98 01/31/20 06:00 23 H 138/61 97 01/31/20 05:00 27 H 136/61 97 01/31/20 04:08 16 126/55 L 98 01/31/20 03:00 17 146/78 H 97 01/31/20 02:00 19 126/67 97 01/31/20 01:00 26 H 148/70 H 95 01/31/20 00:00 25 H 141/67 H 95 Date Exam was Performed: 01/31/20 Time Exam was Performed: 14:42 - Problem List Review Problem List Initiated/Reviewed/Updated: Yes - My Orders Last 24 Hours: My Active Orders 01/30/20 10:27 Patient's Own Medication [Ptom] 2 each INH BIDRT 01/31/20 09:00 Furosemide [Lasix] 40 mg PO DAILY methylPREDNISolone Sod Succ [Solu-MEDROL] 40 mg IVPUSH DAILY 02/01/20 05:11 BASIC METABOLIC PANEL,BMP [CHEM] AM CBC WITH AUTO DIFF [HEME] AM - Plan Plan:: A: 1. Acute COPD exacerbation 2. Community acquired pneumonia 3. PMH DM2, CAD, HTN, Chronic pain. P: 1. Improving. Will downgrade to floor. O2 requirements at baseline. Continue ceftriaxone, azithromycin for CAP. Will increase night time insulin. Work with PT for strengthening. dispo: possibly dc 1-2 days.
[2020-01-31] MEDS: Azithromycin 250 MG Tab PO SCH (15:00)
[2020-01-31] MEDS: cefTRIAXone 2 GM in Premix Bag 1 BAG IV SCH (15:02)
[2020-01-31] MEDS: Rosuvastatin 10 MG Tab PO SCH (20:37)
[2020-01-31] MEDS ORDERED: Insulin Glargine,Human Rec. Analog 100 Units/ML 3 ML Pen SUBCUT SCH (21:00)
[2020-02-01] MEDS: Heparin Sodium 5,000 Units/ML Vial SUBCUT SCH ×2 (02:51→10:34)
[2020-02-01] MEDS: Budesonide/Formoterol 160-4.5 MCG/Puff 6 GM Inhaler INH SCH (05:19)
[2020-02-01] MEDS: Acetaminophen/HYDROcodone 325-10 MG Tab PO PRN ×2 (06:24→14:18)
[2020-02-01] MEDS: Pantoprazole 40 MG Tab.CR PO SCH (06:29)
[2020-02-01 06:44] LABS: BLOOD UREA NITROGEN,BUN 33 mg/dL (7.0-18.0); CHLORIDE,CL 100 mmol/L (98-107); GLUCOSE RANDOM 358 mg/dL (74-106); POTASSIUM,K 4.2 mmol/L (3.5-5.1); SODIUM,NA 137 mmol/L (136-148)
[2020-02-01] MEDS: Insulin Aspart 100 Units/ML 3 ML Pen SUBCUT SCH ×2 (07:02→11:56)
[2020-02-01] MEDS ORDERED: predniSONE 20 MG Tab PO ONE (08:15)
[2020-02-01] MEDS: Citalopram 20 MG Tab PO SCH (08:22)
[2020-02-01] MEDS: Clopidogrel 75 MG Tab PO SCH (08:23)
[2020-02-01] MEDS: Metoprolol Tartrate 50 MG Tab PO SCH (08:23)
[2020-02-01] MEDS: Gabapentin 300 MG Cap PO SCH ×2 (08:23→11:57)
[2020-02-01] MEDS: Furosemide 40 MG Tab PO SCH (08:24)
[2020-02-01] MEDS: Aspirin 81 MG Tab.EC PO SCH (08:24)
[2020-02-01] MEDS: Sodium Chloride 0.65% Nasal Spray 45 ML Bottle NASBOTH PRN (08:27)
--- NOTE | 2020-02-01 11:03 | PCM.DCSUM1 ---
<Joel Jose - Last Filed: 02/02/20 15:05> Discharge Summary - Hospital Course Free Text/Narrative:: 79 y/o male who presented to the ER with shortness of breath. Admitted for acute COPD exacerbation. Found to have Community acquired pneumonia. Started on Ceftriaxone and azithromycin. Needed intermittent BiPAP overnight a couple of nights for O2 desaturations. He did fairly well during this hospitalization. He worked with physical therapy. He will need home health to supervise medication compliance and physical therapy for further strengthening due to deconditioning. He was discharged home on Augmentin, Azithromycin, prednisone. In addition, he was advised to follow-up with his PCP for Pulmonology referral to re-evaluate his COPD and sleep apnea. He would benefit from outpatient sleep study to reassess his sleep apnea. - Discharge Data Discharge Date: 02/01/20 Discharge Disposition: Home, Self-Care 01 Condition: Stable - Referral to Home Health Primary Care Physician: Javi Dobbs NP - Patient Summary/Data Consults: Consultations 02/01/20 09:33 Consult to Physical Therapy [PT Evaluation and Treatment] [CONS] Routine - Patient Instructions Diet: Diabetic Diet Activity: As Tolerated Notify Provider of: Fever, Increased Pain, Swelling and Redness, Nausea and/or Vomiting - Discharge Plan *PRESCRIPTION DRUG MONITORING PROGRAM REVIEWED*: Not Applicable *COPY OF PRESCRIPTION DRUG MONITORING REPORT IN PATIENT MARK: Not Applicable Prescriptions/Med Rec: Amoxicillin/Potassium Clav [Augmentin 875-125 Tablet] 1 each PO BID 5 Days #10 tablet Azithromycin 250 mg PO DAILY 5 Days #5 tablet predniSONE 20 mg PO WITHBREAKFAST 5 Days #5 tab Home Medications: Home Meds Albuterol Sulfate [Albuterol Sulfate Hfa] 2 inh IH Q6H PRN 10/13/19 [History] Albuterol/Ipratropium [DuoNeb 3.0-0.5 MG/3 ML] 3 ml NEB Q6H 10/13/19 [History] Aspirin [Ecotrin EC] 81 mg PO DAILY 10/13/19 [History] Budesonide/Formoterol Fumarate [Symbicort 160-4.5 Mcg Inhaler] 2 inh IH Q12H [History] Citalopram [Citalopram HBr] 10 mg PO DAILY 10/13/19 [History] Clopidogrel [Plavix] 75 mg PO DAILY 10/13/19 [History] Diclofenac Sodium [Voltaren 1% Gel] 4 gm TOP QID PRN MDD total body dose 32gm max 10/13/19 [History] Hydrocodone/Acetaminophen [[place] 10-325 Tablet] 10 - 325 mg PO TID PRN 10/13/19 [History] Insulin Aspart [NovoLOG] 12 unit SUBCUT BID@08,12 10/13/19 [History] Insulin Aspart [NovoLOG] 15 unit SUBCUT WITHDINNER 10/13/19 [History] Insulin Glarg,Human.Rec.Analog [Lantus Solostar] 28 unit SUBCUT BID 10/13/19 [ History] Lidocaine 5% [Lidoderm 5%] 2 patch TD .ON 12 HR, OFF 12 HR 10/13/19 [History] Metoprolol Tartrate 50 mg PO BID 10/13/19 [History] [place]-3/DHA/Epa/Fish Oil [Fish Oil 1,000 mg Softgel] 1,000 mg PO BID 10/13/19 [ History] Pantoprazole [ProTONIX] 40 mg PO ACBREAKFAST 10/13/19 [History] Rosuvastatin Calcium [Crestor] 40 mg PO BEDTIME 10/13/19 [History] Spironolactone [Aldactone] 50 mg PO DAILY 10/13/19 [History] metFORMIN HCl [Metformin HCl ER] 1,000 mg PO BID 10/13/19 [History] polyethylene glycoL 3350 [MiraLAX] 17 gm PO DAILY 10/13/19 [History] Furosemide 40 mg PO DAILY 12/30/19 [History] Gabapentin [Neurontin] 600 mg PO BID 12/30/19 [History] Alogliptin Benzoate [Alogliptin] 25 mg PO DAILY 01/27/20 [History] Meloxicam 15 mg PO WITHBREAKFAST 01/27/20 [History] Gabapentin [Neurontin] 300 mg PO 1200,1800 01/31/20 [History] Amoxicillin/Potassium Clav [Augmentin 875-125 Tablet] 1 each PO BID 5 Days #10 tablet 02/01/20 [Rx] Azithromycin 250 mg PO DAILY 5 Days #5 tablet 02/01/20 [Rx] predniSONE 20 mg PO WITHBREAKFAST 5 Days #5 tab 02/01/20 [Rx] Patient Handouts: Chronic Obstructive Pulmonary Disease Exacerbation, Easy-to- Read, Amoxicillin; Clavulanic Acid tablets, Azithromycin tablets, Prednisone tablets Referrals: [facility] [Outside] - 02/10/20 10:30 am - Discharge Summary/Plan Comment DC Time >30 min.: No - Patient Data Vitals - Most Recent: Last Vital Signs Temp 36.2 C 02/01/20 07:41 Pulse 95 02/01/20 08:23 Resp 25 H 02/01/20 07:41 BP 148/80 H 02/01/20 08:23 Pulse Ox 95 02/01/20 07:41 Weight - Most Recent: 107.1 kg I&O - Last 24 hours: Intake & Output 01/31/20 02/01/20 02/01/20 22:59 06:59 14:59 Intake Total 1124 800 Output Total 1100 625 Balance 24 175 Lab Results - Last 24 hrs: Laboratory Results - last 24 hr 01/31/20 01/31/20 01/31/20 Range/Units 12:14 17:03 20:32 WBC (4.0-11.0) K/uL RBC (4.50-5.90) M/uL Hgb (13.0-17.0) g/dL Hct (38.0-50.0) % MCV (80.0-98.0) fL MCH (27.0-32.0) pg MCHC (31.0-37.0) g/dL RDW Std Deviation (28.0-62.0) fl RDW Coeff of [place] (11.0-15.0) % Plt Count (150-400) K/uL MPV (7.40-12.00) fL Neut % (Auto) (48.0-80.0) % Lymph % (Auto) (16.0-40.0) % [place] % (Auto) (0.0-15.0) % Eos % (Auto) (0.0-7.0) % Baso % (Auto) (0.0-1.5) % Neut # (Auto) (1.4-5.7) K/uL Lymph # (Auto) (0.6-2.4) K/uL [place] # (Auto) (0.0-0.8) K/uL Eos # (Auto) (0.0-0.7) K/uL Baso # (Auto) (0.0-0.1) K/uL Nucleated RBC % /100WBC Nucleated RBCs # K/uL Sodium (136-148) mmol/L Potassium (3.5-5.1) mmol/L Chloride (98-107) mmol/L Carbon Dioxide (21.0-32.0) mmol/L BUN (7.0-18.0) mg/dL Creatinine (0.8-1.3) mg/dL Est Cr Clr Drug Dosing mL/min Estimated GFR (MDRD) ml/min Glucose (74-106) mg/dL POC Glucose 341 H 266 H 331 H (60-110) mg/dL Calcium (8.5-10.1) mg/dL 02/01/20 02/01/20 02/01/20 Range/Units 06:23 06:23 06:29 WBC 10.36 (4.0-11.0) K/uL RBC 4.85 (4.50-5.90) M/uL Hgb 14.2 (13.0-17.0) g/dL Hct 45.0 (38.0-50.0) % MCV 92.8 (80.0-98.0) fL MCH 29.3 (27.0-32.0) pg MCHC 31.6 (31.0-37.0) g/dL RDW Std Deviation 48.1 (28.0-62.0) fl RDW Coeff of [place] 14 (11.0-15.0) % Plt Count 254 (150-400) K/uL MPV 10.20 (7.40-12.00) fL Neut % (Auto) 65.7 (48.0-80.0) % Lymph % (Auto) 24.4 (16.0-40.0) % [place] % (Auto) 9.6 (0.0-15.0) % Eos % (Auto) 0.2 (0.0-7.0) % Baso % (Auto) 0.1 (0.0-1.5) % Neut # (Auto) 6.8 H (1.4-5.7) K/uL Lymph # (Auto) 2.5 H (0.6-2.4) K/uL [place] # (Auto) 1.0 H (0.0-0.8) K/uL Eos # (Auto) 0.0 (0.0-0.7) K/uL Baso # (Auto) 0.0 (0.0-0.1) K/uL Nucleated RBC % 0.2 /100WBC Nucleated RBCs # 0 K/uL Sodium 137 (136-148) mmol/L Potassium 4.2 (3.5-5.1) mmol/L Chloride 100 (98-107) mmol/L Carbon Dioxide 32.0 (21.0-32.0) mmol/L BUN 33 H (7.0-18.0) mg/dL Creatinine 1.1 (0.8-1.3) mg/dL Est Cr Clr Drug Dosing 58.71 mL/min Estimated GFR (MDRD) > 60.0 ml/min Glucose 358 H (74-106) mg/dL POC Glucose 357 H (60-110) mg/dL Calcium 8.5 (8.5-10.1) mg/dL CHARLENE Results - Last 24 hrs: Microbiology 01/27/20 15:30 Aerobic Blood Culture - Preliminary Blood - Venous - Lab Draw NO GROWTH AFTER 4 DAYS Anaerobic Blood Culture - Preliminary NO GROWTH AFTER 4 DAYS 01/27/20 15:10 Aerobic Blood Culture - Preliminary Blood - Venous NO GROWTH AFTER 4 DAYS Anaerobic Blood Culture - Preliminary NO GROWTH AFTER 4 DAYS Med Orders - Current: Current Medications Acetaminophen (Tylenol) 650 mg PO Q4H PRN PRN Reason: Pain (Mild 1-3)/fever Last Admin: 01/30/20 01:36 Dose: 650 mg Hydrocodone Bitart/Acetaminophen ([place] 325-10 Mg) 1 tab PO Q8H PRN PRN Reason: Pain Last Admin: 02/01/20 06:24 Dose: 1 tab Albuterol/Ipratropium (Duoneb 3.0-0.5 Mg/3 Ml) 3 ml NEB Q4HRRT PRN PRN Reason: Shortness Of Breath/wheezing Last Admin: 01/29/20 14:29 Dose: 3 ml Aspirin (Halfprin) 81 mg PO DAILY MAGEN Last Admin: 02/01/20 08:24 Dose: 81 mg Azithromycin (Zithromax) 500 mg PO Q24H MAGEN Last Admin: 01/31/20 15:00 Dose: 500 mg Citalopram Hydrobromide (Celexa) 10 mg PO DAILY ON LICENSE OF [facility] Last Admin: 02/01/20 08:22 Dose: 10 mg Clopidogrel Bisulfate (Plavix) 75 mg PO DAILY ON LICENSE OF [facility] Last Admin: 02/01/20 08:23 Dose: 75 mg Docusate Sodium (Colace) 100 mg PO BID PRN PRN Reason: Constipation Furosemide (Lasix) 40 mg PO DAILY ON LICENSE OF [facility] Last Admin: 02/01/20 08:24 Dose: 40 mg Gabapentin (Neurontin) 600 mg PO DAILY@0900,2100 ON LICENSE OF [facility] Last Admin: 02/01/20 08:23 Dose: 600 mg Gabapentin (Neurontin) 300 mg PO 1200,1800 ON LICENSE OF [facility] Last Admin: 01/31/20 18:02 Dose: 300 mg Heparin Sodium (Porcine) (Heparin Sodium) 5,000 units SUBCUT Q8H ON LICENSE OF [facility] Last Admin: 02/01/20 10:34 Dose: 5,000 units Ceftriaxone Sodium/Dextrose 2 (gm/ Premix) 50 mls @ 100 mls/hr IV Q24H ON LICENSE OF [facility] Last Admin: 01/31/20 15:02 Dose: 100 mls/hr Insulin Aspart (Novolog) 0 unit SUBCUT TIDAC ON LICENSE OF [facility]; Protocol Last Admin: 02/01/20 07:02 Dose: 15 units Insulin Glargine (Lantus Solostar) 30 units SUBCUT BEDTIME ON LICENSE OF [facility] Last Admin: 01/31/20 20:37 Dose: 30 units Magnesium Hydroxide (Milk Of Magnesia) 30 ml PO Q12H PRN PRN Reason: Constipation Metoprolol Tartrate (Lopressor) 50 mg PO BID ON LICENSE OF [facility] Last Admin: 02/01/20 08:23 Dose: 50 mg Ondansetron HCl (Zofran Odt) 4 mg PO Q4H PRN PRN Reason: nausea, able to take PO Ondansetron HCl (Zofran) 4 mg IVPUSH Q4H PRN PRN Reason: Nausea Pantoprazole Sodium (Protonix) 40 mg PO ACBREAKFAST ON LICENSE OF [facility] Last Admin: 02/01/20 06:29 Dose: 40 mg Budesonide/Formoterol 160-4.5 Mcg/Puff 6 Gm Inhaler 2 each INH BIDRT ON LICENSE OF [facility] Last Admin: 02/01/20 05:19 Dose: 2 each Diclofenac Sodium 1% (Gel) 1 each TOP QID PRN PRN Reason: pain and inflammation Last Admin: 01/31/20 19:34 Dose: 1 each Polyethylene Glycol (Miralax) 17 gm PO DAILY PRN PRN Reason: Constipation Prednisone (Prednisone) 40 mg PO WITHBREAKFAST MAGEN Rosuvastatin Calcium (Crestor) 40 mg PO BEDTIME MAGEN Last Admin: 01/31/20 20:37 Dose: 40 mg Sodium Chloride ([place] Nasal [place]) 1 ml NASBOTH Q2H PRN PRN Reason: Nasal Congestion Last Admin: 02/01/20 08:27 Dose: 1 spray Discontinued Medications Hydrocodone Bitart/Acetaminophen ([place] 325-7.5 Mg) 1 tab PO STAT ONE Stop: 01/27/20 16:13 Last Admin: 01/27/20 16:17 Dose: 1 tab Hydrocodone Bitart/Acetaminophen ([place] 325-5 Mg) 1 tab PO TID PRN PRN Reason: Pain Last Admin: 01/28/20 09:44 Dose: 1 tab Hydrocodone Bitart/Acetaminophen ([place] 325-10 Mg) 1 tab PO Q6H PRN PRN Reason: Pain Hydrocodone Bitart/Acetaminophen ([place] 325-5 Mg) 1 tab PO ONETIME ONE Stop: 01/28/20 11:15 Last Admin: 01/28/20 11:23 Dose: 1 tab Albuterol/Ipratropium (Duoneb 3.0-0.5 Mg/3 Ml) 3 ml NEB ONETIME ONE Stop: 01/27/20 15:17 Last Admin: 01/27/20 15:24 Dose: 3 ml Albuterol/Ipratropium (Duoneb 3.0-0.5 Mg/3 Ml) 3 ml NEB ONETIME ONE Stop: 01/27/20 15:27 Last Admin: 01/27/20 15:35 Dose: 3 ml Budesonide/Formoterol Fumarate (Symbicort 160-4.5 Mcg) 0 gm INH BIDRT MAGEN Last Admin: 01/30/20 06:06 Dose: Not Given Magnesium Sulfate 2 gm/ Premix 50 mls @ 50 mls/hr IV ONETIME ONE Stop: 01/27/20 16:27 Last Admin: 01/27/20 15:58 Dose: Not Given Magnesium Sulfate 1 gm/ Sodium (Chloride) 52 mls @ 104 mls/hr IV ONETIME ONE Stop: 01/27/20 16:29 Last Admin: 01/27/20 16:07 Dose: 104 mls/hr Magnesium Sulfate 1 gm/ Sodium (Chloride) 52 mls @ 104 mls/hr IV ONETIME ONE Stop: 01/27/20 17:14 Last Admin: 01/27/20 16:52 Dose: 104 mls/hr Lactated Ringer's (Ringers, Lactated) 1,000 mls @ 75 mls/hr IV ONETIME ONE Stop: 01/28/20 07:28 Last Admin: 01/27/20 18:28 Dose: 75 mls/hr Magnesium Sulfate 2 gm/ Premix 50 mls @ 25 mls/hr IV ONETIME ONE Stop: 01/28/20 10:16 Last Admin: 01/28/20 08:45 Dose: 25 mls/hr Azithromycin 500 mg/ Sodium (Chloride) 250 mls @ 250 mls/hr IV Q24H ON LICENSE OF [facility] Last Admin: 01/30/20 15:16 Dose: 250 mls/hr Lactated Ringer's (Ringers, Lactated) 1,000 mls @ 75 mls/hr IV ASDIRECTED ON LICENSE OF [facility] Last Admin: 01/30/20 04:09 Dose: 75 mls/hr Insulin Glargine (Lantus Solostar) 15 units SUBCUT BEDTIME ON LICENSE OF [facility] Last Admin: 01/28/20 20:55 Dose: 15 units Insulin Glargine (Lantus Solostar) 20 units SUBCUT BEDTIME ON LICENSE OF [facility] Insulin Glargine (Lantus Solostar) 25 units SUBCUT BEDTIME ON LICENSE OF [facility] Last Admin: 01/30/20 20:50 Dose: 25 units Methylprednisolone Sodium Succinate (Solu-Medrol) 125 mg IVPUSH ONETIME ONE Stop: 01/27/20 15:30 Last Admin: 01/27/20 15:41 Dose: 125 mg Methylprednisolone Sodium Succinate (Solu-Medrol) 40 mg IVPUSH BID ON LICENSE OF [facility] Last Admin: 01/30/20 20:50 Dose: 40 mg Methylprednisolone Sodium Succinate (Solu-Medrol) 40 mg IVPUSH DAILY ON LICENSE OF [facility] Last Admin: 01/31/20 09:00 Dose: 40 mg Prednisone (Prednisone) 40 mg PO WITHBREAKFAST ONE Stop: 02/01/20 08:16 Last Admin: 02/01/20 08:22 Dose: 40 mg <Myron Singh J - Last Filed: 02/03/20 16:20> Discharge Summary - Referral to Home Health Primary Care Physician: Javi Dobbs NP - Patient Summary/Data Consults: Consultations 02/01/20 09:33 Consult to Physical Therapy [PT Evaluation and Treatment] [CONS] Routine - Patient Data Vitals - Most Recent: Last Vital Signs Temp 36.2 C 02/01/20 11:10 Pulse 84 02/01/20 11:10 Resp 24 H 02/01/20 11:10 BP 153/77 H 02/01/20 11:10 Pulse Ox 97 02/01/20 11:10 Med Orders - Current: Current Medications Discontinued Medications Acetaminophen (Tylenol) 650 mg PO Q4H PRN PRN Reason: Pain (Mild 1-3)/fever Last Admin: 01/30/20 01:36 Dose: 650 mg Hydrocodone Bitart/Acetaminophen ([place] 325-7.5 Mg) 1 tab PO STAT ONE Stop: 01/27/20 16:13 Last Admin: 01/27/20 16:17 Dose: 1 tab Hydrocodone Bitart/Acetaminophen ([place] 325-5 Mg) 1 tab PO TID PRN PRN Reason: Pain Last Admin: 01/28/20 09:44 Dose: 1 tab Hydrocodone Bitart/Acetaminophen ([place] 325-10 Mg) 1 tab PO Q6H PRN PRN Reason: Pain Hydrocodone Bitart/Acetaminophen ([place] 325-5 Mg) 1 tab PO ONETIME ONE Stop: 01/28/20 11:15 Last Admin: 01/28/20 11:23 Dose: 1 tab Hydrocodone Bitart/Acetaminophen ([place] 325-10 Mg) 1 tab PO Q8H PRN PRN Reason: Pain Last Admin: 02/01/20 14:18 Dose: 1 tab Albuterol/Ipratropium (Duoneb 3.0-0.5 Mg/3 Ml) 3 ml NEB ONETIME ONE Stop: 01/27/20 15:17 Last Admin: 01/27/20 15:24 Dose: 3 ml Albuterol/Ipratropium (Duoneb 3.0-0.5 Mg/3 Ml) 3 ml NEB ONETIME ONE Stop: 01/27/20 15:27 Last Admin: 01/27/20 15:35 Dose: 3 ml Albuterol/Ipratropium (Duoneb 3.0-0.5 Mg/3 Ml) 3 ml NEB Q4HRRT PRN PRN Reason: Shortness Of Breath/wheezing Last Admin: 01/29/20 14:29 Dose: 3 ml Aspirin (Halfprin) 81 mg PO DAILY ON LICENSE OF [facility] Last Admin: 02/01/20 08:24 Dose: 81 mg Azithromycin (Zithromax) 500 mg PO Q24H ON LICENSE OF [facility] Last Admin: 02/01/20 14:17 Dose: 500 mg Budesonide/Formoterol Fumarate (Symbicort 160-4.5 Mcg) 0 gm INH BIDRT ON LICENSE OF [facility] Last Admin: 01/30/20 06:06 Dose: Not Given Citalopram Hydrobromide (Celexa) 10 mg PO DAILY ON LICENSE OF [facility] Last Admin: 02/01/20 08:22 Dose: 10 mg Clopidogrel Bisulfate (Plavix) 75 mg PO DAILY ON LICENSE [facility] Last Admin: 02/01/20 08:23 Dose: 75 mg Docusate Sodium (Colace) 100 mg PO BID PRN PRN Reason: Constipation Furosemide (Lasix) 40 mg PO DAILY ON LICENSE OF [facility] Last Admin: 02/01/20 08:24 Dose: 40 mg Gabapentin (Neurontin) 600 mg PO DAILY@0900,2100 ON LICENSE [facility] Last Admin: 02/01/20 08:23 Dose: 600 mg Gabapentin (Neurontin) 300 mg PO 1200,1800 ON LICENSE [facility] Last Admin: 02/01/20 11:57 Dose: 300 mg Heparin Sodium (Porcine) (Heparin Sodium) 5,000 units SUBCUT Q8H ON LICENSE OF [facility] Last Admin: 02/01/20 10:34 Dose: 5,000 units Magnesium Sulfate 2 gm/ Premix 50 mls @ 50 mls/hr IV ONETIME ONE Stop: 01/27/20 16:27 Last Admin: 01/27/20 15:58 Dose: Not Given Magnesium Sulfate 1 gm/ Sodium (Chloride) 52 mls @ 104 mls/hr IV ONETIME ONE Stop: 01/27/20 16:29 Last Admin: 01/27/20 16:07 Dose: 104 mls/hr Magnesium Sulfate 1 gm/ Sodium (Chloride) 52 mls @ 104 mls/hr IV ONETIME ONE Stop: 01/27/20 17:14 Last Admin: 01/27/20 16:52 Dose: 104 mls/hr Lactated Ringer's (Ringers, Lactated) 1,000 mls @ 75 mls/hr IV ONETIME ONE Stop: 01/28/20 07:28 Last Admin: 01/27/20 18:28 Dose: 75 mls/hr Magnesium Sulfate 2 gm/ Premix 50 mls @ 25 mls/hr IV ONETIME ONE Stop: 01/28/20 10:16 Last Admin: 01/28/20 08:45 Dose: 25 mls/hr Azithromycin 500 mg/ Sodium (Chloride) 250 mls @ 250 mls/hr IV Q24H ON LICENSE [facility] Last Admin: 01/30/20 15:16 Dose: 250 mls/hr Ceftriaxone Sodium/Dextrose 2 (gm/ Premix) 50 mls @ 100 mls/hr IV Q24H ON LICENSE [facility] Last Admin: 02/01/20 14:27 Dose: 100 mls/hr Lactated Ringer's (Ringers, Lactated) 1,000 mls @ 75 mls/hr IV ASDIRECTED ON LICENSE OF [facility] Last Admin: 01/30/20 04:09 Dose: 75 mls/hr Insulin Aspart (Novolog) 0 unit SUBCUT TIDAC ON LICENSE OF [facility]; Protocol Last Admin: 02/01/20 11:56 Dose: 15 units Insulin Glargine (Lantus Solostar) 15 units SUBCUT BEDTIME ON LICENSE OF [facility] Last Admin: 01/28/20 20:55 Dose: 15 units Insulin Glargine (Lantus Solostar) 20 units SUBCUT BEDTIME ON LICENSE [facility] Insulin Glargine (Lantus Solostar) 25 units SUBCUT BEDTIME ON LICENSE OF [facility] Last Admin: 01/30/20 20:50 Dose: 25 units Insulin Glargine (Lantus Solostar) 30 units SUBCUT BEDTIME ON LICENSE [facility] Last Admin: 01/31/20 20:37 Dose: 30 units Magnesium Hydroxide (Milk Of Magnesia) 30 ml PO Q12H PRN PRN Reason: Constipation Methylprednisolone Sodium Succinate (Solu-Medrol) 125 mg IVPUSH ONETIME ONE Stop: 01/27/20 15:30 Last Admin: 01/27/20 15:41 Dose: 125 mg Methylprednisolone Sodium Succinate (Solu-Medrol) 40 mg IVPUSH BID ON LICENSE OF [facility] Last Admin: 01/30/20 20:50 Dose: 40 mg Methylprednisolone Sodium Succinate (Solu-Medrol) 40 mg IVPUSH DAILY ON LICENSE [facility] Last Admin: 01/31/20 09:00 Dose: 40 mg Metoprolol Tartrate (Lopressor) 50 mg PO BID ON LICENSE [facility] Last Admin: 02/01/20 08:23 Dose: 50 mg Ondansetron HCl (Zofran Odt) 4 mg PO Q4H PRN PRN Reason: nausea, able to take PO Ondansetron HCl (Zofran) 4 mg IVPUSH Q4H PRN PRN Reason: Nausea Pantoprazole Sodium (Protonix) 40 mg PO ACBREAKFAST ON LICENSE OF [facility] Last Admin: 02/01/20 06:29 Dose: 40 mg Budesonide/Formoterol 160-4.5 Mcg/Puff 6 Gm Inhaler 2 each INH BIDRT MAGEN Last Admin: 02/01/20 05:19 Dose: 2 each Diclofenac Sodium 1% (Gel) 1 each TOP QID PRN PRN Reason: pain and inflammation Last Admin: 01/31/20 19:34 Dose: 1 each Polyethylene Glycol (Miralax) 17 gm PO DAILY PRN PRN Reason: Constipation Prednisone (Prednisone) 40 mg PO WITHBREAKFAST ON LICENSE OF [facility] Prednisone (Prednisone) 40 mg PO WITHBREAKFAST ONE Stop: 02/01/20 08:16 Last Admin: 02/01/20 08:22 Dose: 40 mg Rosuvastatin Calcium (Crestor) 40 mg PO BEDTIME ON LICENSE OF [facility] Last Admin: 01/31/20 20:37 Dose: 40 mg Sodium Chloride ([place] Nasal [place]) 1 ml NASBOTH Q2H PRN PRN Reason: Nasal Congestion Last Admin: 02/01/20 08:27 Dose: 1 spray - Free Text/Narrative Note: I have seen and examined the patient with the resident. I have discussed the findings and treatment plan with the resident. I agree with the assessment and plan as outlined in the following note.
[2020-02-01] MEDS: Azithromycin 250 MG Tab PO SCH (14:17)
[2020-02-01] MEDS: cefTRIAXone 2 GM in Premix Bag 1 BAG IV SCH (14:27)
[2020-02-02] MEDS ORDERED: predniSONE 20 MG Tab PO SCH (08:00)
== END 2020-02-01 15:40 | disposition home or self-care (01) | DRG 193 ==
LOC: MW.ED 15:03 → MW.MS 16:35 → OBSVTOIN 19:50 → MW.ICU 20:22 → MW.MS 01-28 15:36 → MW.ICU 01-29 17:50 → MW.MS 01-31 15:37
PROVIDERS: ADMIT Internal Medicine; ATTEND Internal Medicine
DX: J18.9 Pneumonia, unspecified organism (principal); J96.21 Acute and chronic respiratory failure with hypoxia; E87.5 Hyperkalemia; J96.22 Acute and chronic respiratory failure with hypercapnia; H54.7 Unspecified visual loss; H91.93 Unspecified hearing loss, bilateral; J44.1 Chronic obstructive pulmonary disease with (acute) exacerbation; J44.0 Chronic obstructive pulmonary disease with (acute) lower respiratory infection; G47.33 Obstructive sleep apnea (adult) (pediatric); I25.10 Atherosclerotic heart disease of native coronary artery without angina pectoris; Z95.5 Presence of coronary angioplasty implant and graft; I11.0 Hypertensive heart disease with heart failure; I50.9 Heart failure, unspecified; Z66 Do not resuscitate; E78.00 Pure hypercholesterolemia, unspecified; K21.9 Gastro-esophageal reflux disease without esophagitis; M19.90 Unspecified osteoarthritis, unspecified site; M54.9 Dorsalgia, unspecified; E11.9 Type 2 diabetes mellitus without complications; F43.10 Post-traumatic stress disorder, unspecified; G89.29 Other chronic pain; F41.9 Anxiety disorder, unspecified; F32.9 Major depressive disorder, single episode, unspecified; Z79.02 Long term (current) use of antithrombotics/antiplatelets; E83.42 Hypomagnesemia; E87.6 Hypokalemia; E11.65 Type 2 diabetes mellitus with hyperglycemia; Z91.19 Patient's noncompliance with other medical treatment and regimen; I25.2 Old myocardial infarction; Z88.8 Allergy status to other drugs, medicaments and biological substances; Z91.041 Radiographic dye allergy status; Z79.51 Long term (current) use of inhaled steroids; Z79.82 Long term (current) use of aspirin; Z79.4 Long term (current) use of insulin; Z79.899 Other long term (current) drug therapy; Z99.89 Dependence on other enabling machines and devices; Z87.891 Personal history of nicotine dependence
CPT/HCPCS: 36415; 36600 ×2; 71045; 80053; 81003; 82803; 83605; 83735; 83880; 84484; 85025; 87040 ×2; 87804 ×2; 93005; 94640; 96365; 96366; 96375; 99285; A9270; J1644; J2930; J3475 ×2; J7050 ×2; J7120; 80048; 82962; 94660; 97161-GP; 99284; J0456; J0696; J1815-GY; J2920; J7620-GY

== ENCOUNTER 2020-02-09 11:21 | Inpatient (IN) | payer OTHER, MEDICARE ==
[2020-02-09] MEDS ORDERED: Albuterol 0.083% 2.5 MG/3 ML Neb Soln NEB ONE (11:25)
[2020-02-09] MEDS ORDERED: Albuterol 0.083% 2.5 MG/3 ML Neb Soln ONE (11:26)
[2020-02-09] MEDS ORDERED: Sodium Chloride 0.9% 10 ML Syringe FLUSH PRN (11:26)
[2020-02-09] MEDS ORDERED: Sodium Chloride 0.9% 2.5 ML Syringe FLUSH PRN (11:26)
[2020-02-09] MEDS ORDERED: methylPREDNISolone Sodium Succinate 125 MG/2 ML SDV IVPUSH ONE (11:27)
[2020-02-09 12:09] LABS: BLOOD UREA NITROGEN,BUN 29 mg/dL (7.0-18.0); CARBON DIOXIDE,CO2 32.3 mmol/L (21.0-32.0); CHLORIDE,CL 95 mmol/L (98-107); GLUCOSE RANDOM 234 mg/dL (74-106); POTASSIUM,K 5.1 mmol/L (3.5-5.1); SODIUM,NA 136 mmol/L (136-148)
--- NOTE | 2020-02-09 12:35 | CR ---
Chest: Frontal view of the chest was obtained. Comparison: Prior chest x-ray of 01/29/20. Increased density within both sides of the chest. Findings are felt to be fairly stable from previous exam. No definite acute parenchymal density is seen. Heart size is normal. Upper mediastinum is normal. Bony structures are grossly intact. Impression: 1. Stable findings from most recent chest x-ray. 2. Nothing acute is definitely appreciated. Diagnostic code #2 This report was dictated in MDT
--- NOTE | 2020-02-09 12:49 | EDM.PDOC ---
ED HPI GENERAL MEDICAL PROBLEM - General Chief Complaint: Respiratory Problem Stated Complaint: TROUBLE BREATHING Time Seen by Provider: 02/09/20 12:00 Source of Information: Reports: Patient History Limitations: Reports: No Limitations - History of Present Illness INITIAL COMMENTS - FREE TEXT/NARRATIVE: This is a 79-year-old male who presents the emergency room with a chief complaint of difficulty breathing. Patient seen at that facility and sent to the hospital for evaluation. Patient has been admitted for pneumonia and COPD exacerbation in the past. Denies chest pain or difficulty breathing at this time Onset: Today Duration: Hour(s):, Getting Worse Location: Reports: Chest Severity: Moderate Improves with: Reports: None Worsens with: Reports: Movement Associated Symptoms: Reports: No Other Symptoms, Cough, Shortness of Breath. Denies: cough w sputum - Related Data Allergies Allergy/AdvReac Type Severity Reaction Status Date / Time atorvastatin Allergy Other Verified 02/09/20 11:36 bupropion [From Wellbutrin] Allergy Other Verified 02/09/20 11:36 duloxetine HCl Allergy Rash Verified 02/09/20 11:36 [From Cymbalta] Iodinated Contrast Media Allergy Other Verified 02/09/20 11:36 meloxicam Allergy Other Verified 02/09/20 11:36 metformin Allergy Other Verified 02/09/20 11:36 naproxen Allergy Other Verified 02/09/20 11:36 paroxetine Allergy Other Verified 02/09/20 11:36 sertraline HCl [From Zoloft] Allergy Rash Verified 02/09/20 11:36 venlafaxine [From Effexor] Allergy oth Verified 02/09/20 11:36 Home Meds: Home Meds Albuterol Sulfate [Albuterol Sulfate Hfa] 2 inh IH Q6H PRN 10/13/19 [History] Albuterol/Ipratropium [DuoNeb 3.0-0.5 MG/3 ML] 3 ml NEB Q6H 10/13/19 [History] Aspirin [Ecotrin EC] 81 mg PO DAILY 10/13/19 [History] Budesonide/Formoterol Fumarate [Symbicort 160-4.5 Mcg Inhaler] 2 inh IH Q12H [History] Citalopram [Citalopram HBr] 10 mg PO DAILY 10/13/19 [History] Clopidogrel [Plavix] 75 mg PO DAILY 10/13/19 [History] Diclofenac Sodium [Voltaren 1% Gel] 4 gm TOP QID PRN MDD total body dose 32gm max 10/13/19 [History] Hydrocodone/Acetaminophen [[place] 10-325 Tablet] 10 - 325 mg PO TID PRN 10/13/19 [History] Insulin Aspart [NovoLOG] 12 unit SUBCUT BID@08,12 10/13/19 [History] Insulin Aspart [NovoLOG] 15 unit SUBCUT WITHDINNER 10/13/19 [History] Insulin Glarg,Human.Rec.Analog [Lantus Solostar] 28 unit SUBCUT BID 10/13/19 [ History] Lidocaine 5% [Lidoderm 5%] 2 patch TD .ON 12 HR, OFF 12 HR 10/13/19 [History] Metoprolol Tartrate 50 mg PO BID 10/13/19 [History] [place]-3/DHA/Epa/Fish Oil [Fish Oil 1,000 mg Softgel] 1,000 mg PO BID 10/13/19 [ History] Pantoprazole [ProTONIX] 40 mg PO ACBREAKFAST 10/13/19 [History] Rosuvastatin Calcium [Crestor] 40 mg PO BEDTIME 10/13/19 [History] Spironolactone [Aldactone] 50 mg PO DAILY 10/13/19 [History] metFORMIN HCl [Metformin HCl ER] 1,000 mg PO BID 10/13/19 [History] polyethylene glycoL 3350 [MiraLAX] 17 gm PO DAILY 10/13/19 [History] Furosemide 40 mg PO DAILY 12/30/19 [History] Gabapentin [Neurontin] 600 mg PO BID 12/30/19 [History] Alogliptin Benzoate [Alogliptin] 25 mg PO DAILY 01/27/20 [History] Meloxicam 15 mg PO WITHBREAKFAST 01/27/20 [History] Gabapentin [Neurontin] 300 mg PO 1200,1800 01/31/20 [History] Amoxicillin/Potassium Clav [Augmentin 875-125 Tablet] 1 each PO BID 5 Days #10 tablet 02/01/20 [Rx] Azithromycin 250 mg PO DAILY 5 Days #5 tablet 02/01/20 [Rx] predniSONE 20 mg PO WITHBREAKFAST 5 Days #5 tab 02/01/20 [Rx] Past Medical History HEENT History: Reports: None Other HEENT History: glasses and hearing aides Cardiovascular History: Reports: CAD, Heart Failure, High Cholesterol, Hypertension, CA, Stents Respiratory History: Reports: Asthma, COPD Other Respiratory History: states may need cpap but does not have one. Gastrointestinal History: Reports: Diverticulosis, Gastritis, GERD Genitourinary History: Reports: None Musculoskeletal History: Reports: Arthritis, Back Pain, Chronic Neurological History: Reports: None Psychiatric History: Reports: Anxiety, Depression, Panic Attack, PTSD Endocrine/Metabolic History: Reports: Diabetes, Type II Hematologic History: Reports: None Immunologic History: Reports: None Oncologic (Cancer) History: Reports: None Dermatologic History: Reports: None - Infectious Disease History Infectious Disease History: Reports: None - Past Surgical History Head Surgeries/Procedures: Reports: None HEENT Surgical History: Reports: None Cardiovascular Surgical History: Reports: Other (See Below) Other Cardiovascular Surgeries/Procedures: 2004 2017 Respiratory Surgical History: Reports: None GI Surgical History: Reports: Colonoscopy Male Surgical History: Reports: None Endocrine Surgical History: Reports: None Neurological Surgical History: Reports: None Musculoskeletal Surgical History: Reports: None Oncologic Surgical History: Reports: None Dermatological Surgical History: Reports: None Social & Family History - Family History Family Medical History: Noncontributory - Tobacco Use Smoking Status *Q: Unknown Ever Smoked Second Hand Smoke Exposure: No - Caffeine Use Caffeine Use: Reports: None - Recreational Drug Use Recreational Drug Use: No ED ROS GENERAL - Review of Systems Review Of Systems: See Below Constitutional: Reports: No Symptoms. Denies: Fever, Malaise, Weakness, Diaphoresis, Decreased Appetite, Weight Loss HEENT: Reports: No Symptoms. Denies: Contact Lenses, Dental Pain, Eye Pain, Glasses Respiratory: Reports: Shortness of Breath, Wheezing, Cough, Sputum, Hemoptysis Cardiovascular: Reports: No Symptoms. Denies: Chest Pain, Dyspnea on Exertion, Edema Endocrine: Reports: No Symptoms. Denies: Fatigue, High Glucose GI/Abdominal: Reports: No Symptoms. Denies: Abdominal Pain, Constipation, Diarrhea : Reports: No Symptoms Musculoskeletal: Reports: No Symptoms. Denies: Neck Pain, Shoulder Pain, Foot Pain, Joint Pain Skin: Reports: No Symptoms. Denies: Cyanosis, Jaundice Neurological: Reports: No Symptoms. Denies: Confusion, Pre-Existing Deficit Psychiatric: Reports: No Symptoms. Denies: Agitation Hematologic/Lymphatic: Reports: No Symptoms. Denies: Anemia, Easy Bleeding Immunologic: Reports: No Symptoms ED EXAM, GENERAL - Physical Exam Exam: See Below Free Text/Narrative:: Presents the emergency room short of breath wheezing and tripoding on initial visit. Exam Limited By: No Limitations General Appearance: Alert, WD/WN, No Apparent Distress Eye Exam: Bilateral Eye: Normal Fundi, Normal Inspection Ear Exam: Bilateral Ear: Auricle Normal, Canal Normal, TM normal Nose: Normal Inspection, Normal Mucosa, No Blood Throat/Mouth: Normal Inspection, Normal Lips, Normal Teeth Head: Atraumatic, Normocephalic Neck: Normal Inspection, Supple, Non-Tender Respiratory/Chest: Decreased Breath Sounds, Rhonchi, Retractions Cardiovascular: Normal Peripheral Pulses, Regular Rate, Rhythm, No Edema, No JVD , No Murmur, No Rub GI/Abdominal: Normal Bowel Sounds, Soft, Non-Tender, No Organomegaly, No Distention, No Abnormal Bruit (Male) Exam: No Hernia, Normal Inspection, Normal Prostate Rectal (Males) Exam: Deferred. No: Normal Rectal Tone, Prostate Normal Back Exam: Normal Inspection, Full Range of Motion, CVA Tenderness (R), Decreased Range of Motion Extremities: Normal Inspection, Normal Range of Motion, No Pedal Edema, Normal Capillary Refill Neurological: Alert, Oriented, CN II-XII Intact, Normal Cognition, Normal Reflexes, No Motor/Sensory Deficits, Slow to Respond Psychiatric: Normal Affect, Normal Mood Skin Exam: Warm, Intact EKG INTERPRETATION QRS: Normal ST-T: Normal QT: Normal Course - Vital Signs Last Recorded V/S: Last Vital Signs Temp 97.9 F 02/09/20 11:31 Pulse 106 H 02/09/20 12:30 Resp 28 H 02/09/20 12:30 BP 139/75 02/09/20 12:30 Pulse Ox 95 02/09/20 12:30 - Orders/Labs/Meds Orders: Active Orders 24 hr Category Date Time Status CPAP Adult [RT BiPAP/CPAP] [RC] ASDIRECTED Care 02/09/20 11:59 Active EKG Documentation Completion [RC] STAT Care 02/09/20 11:34 Active RT Aerosol Therapy [RC] ASDIRECTED Care 02/09/20 11:25 Active Sodium Chloride 0.9% [Saline Flush] Med 02/09/20 11:26 Active 10 ml FLUSH ASDIRECTED PRN Sodium Chloride 0.9% [Saline Flush] Med 02/09/20 11:26 Active 2.5 ml FLUSH ASDIRECTED PRN Saline Lock Insert [OM.PC] Stat Oth 02/09/20 11:26 Ordered Medication Orders Sodium Chloride (Saline Flush) 10 ml FLUSH ASDIRECTED PRN PRN Reason: Keep Vein Open Sodium Chloride (Saline Flush) 2.5 ml FLUSH ASDIRECTED PRN PRN Reason: Keep Vein Open Labs: Laboratory Tests 02/09/20 02/09/20 02/09/20 Range/Units 10:49 11:32 11:32 WBC 33.50 H (4.0-11.0) K/uL RBC 4.69 (4.50-5.90) M/uL Hgb 14.0 (13.0-17.0) g/dL Hct 45.2 (38.0-50.0) % MCV 96.4 (80.0-98.0) fL MCH 29.9 (27.0-32.0) pg MCHC 31.0 (31.0-37.0) g/dL RDW Std Deviation 52.5 (28.0-62.0) fl RDW Coeff of Rocco 15 (11.0-15.0) % Plt Count 245 (150-400) K/uL MPV 10.60 (7.40-12.00) fL Add Manual Diff YES Neutrophils % (Manual) 78 (48.0-80.0) % Band Neutrophils % 2 % Lymphocytes % (Manual) 13 L (16.0-40.0) % Monocytes % (Manual) 7 (0.0-15.0) % Nucleated RBC % 0.0 /100WBC Absolute Seg Neuts 26.1 H (1.4-5.7) Band Neutrophils # 0.7 Lymphocytes # (Manual) 4.4 H (0.6-2.4) Monocytes # (Manual) 2.3 H (0.0-0.8) Nucleated RBCs # 0 K/uL Reactive Lymphocytes FEW ABG pH (7.35-7.45) ABG pCO2 (35-45) mmHG ABG pO2 (75-100) mmHG ABG HCO3 (22-26) mEq/L ABG Total CO2 ABG Base Excess (-2.0-2.0) Sodium 136 (136-148) mmol/L Potassium 5.1 (3.5-5.1) mmol/L Chloride 95 L (98-107) mmol/L Carbon Dioxide 32.3 H (21.0-32.0) mmol/L BUN 29 H (7.0-18.0) mg/dL Creatinine 1.0 (0.8-1.3) mg/dL Est Cr Clr Drug Dosing 62.86 mL/min Estimated GFR (MDRD) > 60.0 ml/min Glucose 234 H (74-106) mg/dL POC Glucose 240 H (60-110) mg/dL Calcium 9.9 (8.5-10.1) mg/dL Total Bilirubin 0.6 (0.2-1.0) mg/dL AST 28 (15-37) IU/L ALT 47 (14-63) IU/L Alkaline Phosphatase 93 (46-116) U/L Troponin I < 0.050 (0.000-0.056) ng/mL Total Protein 7.4 (6.4-8.2) g/dL Albumin 3.3 L (3.4-5.0) g/dL Globulin 4.1 H (2.6-4.0) g/dL Albumin/Globulin Ratio 0.8 L (0.9-1.6) 02/09/20 Range/Units 11:48 WBC (4.0-11.0) K/uL RBC (4.50-5.90) M/uL Hgb (13.0-17.0) g/dL Hct (38.0-50.0) % MCV (80.0-98.0) fL MCH (27.0-32.0) pg MCHC (31.0-37.0) g/dL RDW Std Deviation (28.0-62.0) fl RDW Coeff of Rocco (11.0-15.0) % Plt Count (150-400) K/uL MPV (7.40-12.00) fL Add Manual Diff Neutrophils % (Manual) (48.0-80.0) % Band Neutrophils % % Lymphocytes % (Manual) (16.0-40.0) % Monocytes % (Manual) (0.0-15.0) % Nucleated RBC % /100WBC Absolute Seg Neuts (1.4-5.7) Band Neutrophils # Lymphocytes # (Manual) (0.6-2.4) Monocytes # (Manual) (0.0-0.8) Nucleated RBCs # K/uL Reactive Lymphocytes ABG pH 7.409 (7.35-7.45) ABG pCO2 55 H (35-45) mmHG ABG pO2 69 L (75-100) mmHG ABG HCO3 34 H (22-26) mEq/L ABG Total CO2 30.7 ABG Base Excess 8.0 H (-2.0-2.0) Sodium (136-148) mmol/L Potassium (3.5-5.1) mmol/L Chloride (98-107) mmol/L Carbon Dioxide (21.0-32.0) mmol/L BUN (7.0-18.0) mg/dL Creatinine (0.8-1.3) mg/dL Est Cr Clr Drug Dosing mL/min Estimated GFR (MDRD) ml/min Glucose (74-106) mg/dL POC Glucose (60-110) mg/dL Calcium (8.5-10.1) mg/dL Total Bilirubin (0.2-1.0) mg/dL AST (15-37) IU/L ALT (14-63) IU/L Alkaline Phosphatase (46-116) U/L Troponin I (0.000-0.056) ng/mL Total Protein (6.4-8.2) g/dL Albumin (3.4-5.0) g/dL Globulin (2.6-4.0) g/dL Albumin/Globulin Ratio (0.9-1.6) Meds: Medications Generic Name Dose Route Start Last Admin Trade Name Freq PRN Reason Stop Dose Admin Sodium Chloride 10 ml 02/09/20 11:26 Saline Flush FLUSH ASDIRECTED PRN Keep Vein Open Sodium Chloride 2.5 ml 02/09/20 11:26 Saline Flush FLUSH ASDIRECTED PRN Keep Vein Open Discontinued Medications Generic Name Dose Route Start Last Admin Trade Name Freq PRN Reason Stop Dose Admin Albuterol 7.5 mg 02/09/20 11:25 02/09/20 11:39 Proventil Neb Soln NEB 02/09/20 11:26 7.5 mg ONETIME ONE Administration Albuterol Confirm 03/11/20 11:26 02/09/20 11:39 Proventil Neb Soln Administered 02/09/20 11:27 Not Given Dose 2.5 mg .ROUTE .STK-MED ONE Methylprednisolone Sodium Succinate 125 mg 02/09/20 11:27 02/09/20 11:43 Solu-Medrol IVPUSH 02/09/20 11:28 125 mg ONETIME ONE Administration Departure - Departure Time of Disposition: 12:50 Disposition: Admitted As Inpatient 67 Condition: Fair Clinical Impression: COPD exacerbation - Discharge Information Referrals: [facility] [Primary Care Provider] - Sepsis Event Note - Evaluation Sepsis Screening Result: No Definite Risk - Focused Exam Vital Signs: Vital Signs Temp Pulse Resp BP Pulse Ox 02/09/20 12:30 106 H 28 H 139/75 95 02/09/20 11:31 97.9 F 112 H 40 H 168/104 H 73 L Date Exam was Performed: 02/09/20 Time Exam was Performed: 12:44 - My Orders Last 24 Hours: My Active Orders 02/09/20 11:59 CPAP Adult [RT BiPAP/CPAP] [RC] ASDIRECTED - Assessment/Plan Last 24 Hours: My Active Orders 02/09/20 11:59 CPAP Adult [RT BiPAP/CPAP] [RC] ASDIRECTED
[2020-02-09] MEDS ORDERED: Acetaminophen 325 MG Tab PO PRN (14:09)
[2020-02-09] MEDS ORDERED: Ondansetron 4 MG/2 ML SDV IVPUSH PRN (14:09)
[2020-02-09] MEDS ORDERED: Ondansetron 4 MG Tab.DIS PO PRN (14:09)
[2020-02-09] MEDS ORDERED: Heparin Sodium 5,000 Units/ML Vial SUBCUT SCH (14:15)
[2020-02-09] MEDS ORDERED: Sodium Chloride 0.9% 1,000 ML IV ONE (14:42)
[2020-02-09] MEDS ORDERED: methylPREDNISolone Sodium Succinate 40 MG/1 ML SDV IVPUSH SCH (14:45)
[2020-02-09] MEDS ORDERED: Piperacillin/Tazobactam 4.5 GM in Sodium Chloride 0.9% 100 ML IV SCH (14:45)
--- NOTE | 2020-02-09 14:45 | PN ---
THC Physician - Brief Progress [id number]/11/2020 14:00[facility] Ryne Gr, [place] - MWN (FAVIAN) - MWN ICUREFLAN ESPINALDate of Service 02/09/2020 14:00HPI/Events o f Note eICU progress [id number] male with past history of CAD, HTN, COPD, GERD, anxiety/depressi on and DM 2 who presented to the hospital with shortness of breath. Limited information regarding dys pnea history. But seems patient did recently have a burst prednisone pack and z pack given to him on 02/01/20. In the ED patient was noted to be tachypneic in the 40s and hypertensive in the 160s systolic . Initial work-up chest x-ray did not reveal any acute pathology. Patient was started on nebs, ster oids and CPAP to help with COPD exacerbation. Patient seen on camera, looks comfortable, on CPAP, no acute distress conversing with bedside team. CPAP 8, TV [id number] signs reviewedLabs/EMR/imaging r eviewedCOPD exacerbation-Wean CPAP based on work of breathing. Currently on 35% FiO2. initial ABG wit hout any -Recommend starting duo nebs scheduled every 4 hours and solumedrol 40 daily-Recommend start ing azithromycin daily (if patient recently was on azithromycin than start doxycycline.)-Consider michael cking for respiratory virus PCR panel and any risk factors for travel recently. -Agree with holding o ff on PNA coverage for now. Leukocytosis possibly related to recent prednisone burst pack. DM2-Insuli n sliding scale while inpatient. Recommended blood glucose level range [id number] continu e home ProtonixDVT prophylaxis-recommend LovenoxInterventions Major-Hypoxemia - evaluation and manage ment, Respiratory failure - evaluation and managementElectronically Signed by: BRITTNEY AMADO) o n 02/09/2020 14:44
--- NOTE | 2020-02-09 14:49 | PCM.HP.2 ---
H&P History of Present Illness - General Date of Service: 02/09/20 Admit Problem/Dx: Admission Diagnosis/Problem Admission Diagnosis/Problem COPD, Severe chronic obstructive pulmonary disease Source of Information: Patient, Family - History of Present Illness Initial Comments - Free Text/Narative: 79-year-old male presented to ER accompanied by granddaughter complaining of shortness of breath. He has a PMH of COPD, [place] s/p stents, CHF, ASHUTOSH and DM type 2. Patient woke up this morning and noted he was having difficulty breathing. He uses 2L of home oxygen at baseline. [facility] and [facility] to [facility]. He used 2 nebulizer breathing treatments at home prior to coming to the ER but did not help much. No recent travel. No sick contacts at home. He has a chronic cough at baseline and he does not believe this has increased over the past few days. Of note patient was recently discharged from [facility] on 02/01/20 for COPD exacerbation and community- acquired pneumonia. Denies any fevers, chills, n/v/d, abdominal pain, chest pain , hemoptysis, blood in stool, blood in urine or worsening leg swelling. In the ER, patient given albuterol breathing treatments and started on BiPAP. ABG: pH 7.4, PCO2 55, PO2 69, HCO3 34. WBC count 33. Troponin negative. CXR showed chronic bilateral densities stable from previous CXR. Influenza test negative. Patient admitted to ICU on BiPAP for further evaluation and treatment. - Related Data Allergies/Adverse Reactions: Allergies Allergy/AdvReac Type Severity Reaction Status Date / Time atorvastatin Allergy Other Verified 02/09/20 11:36 bupropion [From Wellbutrin] Allergy Other Verified 02/09/20 11:36 duloxetine HCl Allergy Rash Verified 02/09/20 11:36 [From Cymbalta] Iodinated Contrast Media Allergy Other Verified 02/09/20 11:36 meloxicam Allergy Other Verified 02/09/20 11:36 metformin Allergy Other Verified 02/09/20 11:36 naproxen Allergy Other Verified 02/09/20 11:36 paroxetine Allergy Other Verified 02/09/20 11:36 sertraline HCl [From Zoloft] Allergy Rash Verified 02/09/20 11:36 venlafaxine [From Effexor] Allergy oth Verified 02/09/20 11:36 Home Medications: Home Meds Albuterol Sulfate [Albuterol Sulfate Hfa] 2 inh IH Q6H PRN 10/13/19 [History] Albuterol/Ipratropium [DuoNeb 3.0-0.5 MG/3 ML] 3 ml NEB Q6H 10/13/19 [History] Aspirin [Ecotrin EC] 81 mg PO DAILY 10/13/19 [History] Budesonide/Formoterol Fumarate [Symbicort 160-4.5 Mcg Inhaler] 2 inh IH Q12H [History] Citalopram [Citalopram HBr] 10 mg PO DAILY 10/13/19 [History] Clopidogrel [Plavix] 75 mg PO DAILY 10/13/19 [History] Diclofenac Sodium [Voltaren 1% Gel] 4 gm TOP QID PRN MDD total body dose 32gm max 10/13/19 [History] Hydrocodone/Acetaminophen [Exira 10-325 Tablet] 10 - 325 mg PO TID PRN 10/13/19 [History] Insulin Aspart [NovoLOG] 12 unit SUBCUT BID@08,12 10/13/19 [History] Insulin Aspart [NovoLOG] 15 unit SUBCUT WITHDINNER 10/13/19 [History] Insulin Glarg,Human.Rec.Analog [Lantus Solostar] 28 unit SUBCUT BID 10/13/19 [ History] Lidocaine 5% [Lidoderm 5%] 2 patch TD .ON 12 HR, OFF 12 HR 10/13/19 [History] Metoprolol Tartrate 50 mg PO BID 10/13/19 [History] [place]-3/DHA/Epa/Fish Oil [Fish Oil 1,000 mg Softgel] 1,000 mg PO BID 10/13/19 [ History] Pantoprazole [ProTONIX] 40 mg PO ACBREAKFAST 10/13/19 [History] Rosuvastatin Calcium [Crestor] 40 mg PO BEDTIME 10/13/19 [History] Spironolactone [Aldactone] 50 mg PO DAILY 10/13/19 [History] metFORMIN HCl [Metformin HCl ER] 1,000 mg PO BID 10/13/19 [History] polyethylene glycoL 3350 [MiraLAX] 17 gm PO DAILY 10/13/19 [History] Furosemide 40 mg PO DAILY 12/30/19 [History] Gabapentin [Neurontin] 600 mg PO BID 12/30/19 [History] Alogliptin Benzoate [Alogliptin] 25 mg PO DAILY 01/27/20 [History] Meloxicam 15 mg PO WITHBREAKFAST 01/27/20 [History] Gabapentin [Neurontin] 300 mg PO 1200,1800 01/31/20 [History] Amoxicillin/Potassium Clav [Augmentin 875-125 Tablet] 1 each PO BID 5 Days #10 tablet 02/01/20 [Rx] Azithromycin 250 mg PO DAILY 5 Days #5 tablet 02/01/20 [Rx] predniSONE 20 mg PO WITHBREAKFAST 5 Days #5 tab 02/01/20 [Rx] Past Medical History HEENT History: Reports: None Other HEENT History: glasses and hearing aides Cardiovascular History: Reports: CAD, Heart Failure, High Cholesterol, Hypertension, [place], Stents Respiratory History: Reports: Asthma, COPD Other Respiratory History: states may need cpap but does not have one. Gastrointestinal History: Reports: Diverticulosis, Gastritis, GERD Genitourinary History: Reports: None Musculoskeletal History: Reports: Arthritis, Back Pain, Chronic Neurological History: Reports: None Psychiatric History: Reports: Anxiety, Depression, Panic Attack, PTSD Endocrine/Metabolic History: Reports: Diabetes, Type II Hematologic History: Reports: None Immunologic History: Reports: None Oncologic (Cancer) History: Reports: None Dermatologic History: Reports: None - Infectious Disease History Infectious Disease History: Reports: None - Past Surgical History Head Surgeries/Procedures: Reports: None HEENT Surgical History: Reports: None Cardiovascular Surgical History: Reports: Other (See Below) Other Cardiovascular Surgeries/Procedures: 2004 2017 Respiratory Surgical History: Reports: None GI Surgical History: Reports: Colonoscopy Male Surgical History: Reports: None Endocrine Surgical History: Reports: None Neurological Surgical History: Reports: None Musculoskeletal Surgical History: Reports: None Oncologic Surgical History: Reports: None Dermatological Surgical History: Reports: None Social & Family History - Family History Family Medical History: Noncontributory - Tobacco Use Smoking Status *Q: Unknown Ever Smoked Second Hand Smoke Exposure: No - Caffeine Use Caffeine Use: Reports: None - Recreational Drug Use Recreational Drug Use: No H&P Review of Systems - Review of Systems: Review Of Systems: Comprehensive ROS is negative, except as noted in HPI. Exam - Exam Exam: See Below - Vital Signs Vital Signs: Last Vital Signs Temp 97.9 F 02/09/20 11:31 Pulse 96 02/09/20 13:30 Resp 24 H 02/09/20 13:30 BP 137/90 02/09/20 13:30 Pulse Ox 95 02/09/20 13:30 Weight: 250 lb - Exam General: Alert, Oriented, Cooperative, Other (tired appearing) HEENT: Conjunctiva Clear, EOMI, Hearing Intact, Pupils Equal, Other (BiPAP mask on) Neck: Supple, Trachea Midline Lungs: Normal Respiratory Effort, Decreased Breath Sounds, Wheezing Cardiovascular: Regular Rate, Regular Rhythm GI/Abdominal Exam: Normal Bowel Sounds, Soft, Non-Tender, No Distention Extremities: Binta's Sign, Other (Mild pitting edema bilaterally. No calf tenderness on palpation bilaterally.) Skin: Warm, Dry, Intact Neurological: Cranial Nerves Intact Neuro Extensive - Mental Status: Alert, Oriented x3 - Patient Data Lab Results Last 24 hrs: Laboratory Results - last 24 hr 02/09/20 02/09/20 02/09/20 Range/Units 10:49 11:32 11:32 WBC 33.50 H (4.0-11.0) K/uL RBC 4.69 (4.50-5.90) M/uL Hgb 14.0 (13.0-17.0) g/dL Hct 45.2 (38.0-50.0) % MCV 96.4 (80.0-98.0) fL MCH 29.9 (27.0-32.0) pg MCHC 31.0 (31.0-37.0) g/dL RDW Std Deviation 52.5 (28.0-62.0) fl RDW Coeff of Rocco 15 (11.0-15.0) % Plt Count 245 (150-400) K/uL MPV 10.60 (7.40-12.00) fL Add Manual Diff YES Neutrophils % (Manual) 78 (48.0-80.0) % Band Neutrophils % 2 % Lymphocytes % (Manual) 13 L (16.0-40.0) % Monocytes % (Manual) 7 (0.0-15.0) % Nucleated RBC % 0.0 /100WBC Absolute Seg Neuts 26.1 H (1.4-5.7) Band Neutrophils # 0.7 Lymphocytes # (Manual) 4.4 H (0.6-2.4) Monocytes # (Manual) 2.3 H (0.0-0.8) Nucleated RBCs # 0 K/uL Reactive Lymphocytes FEW ABG pH (7.35-7.45) ABG pCO2 (35-45) mmHG ABG pO2 (75-100) mmHG ABG HCO3 (22-26) mEq/L ABG Total CO2 ABG Base Excess (-2.0-2.0) Sodium 136 (136-148) mmol/L Potassium 5.1 (3.5-5.1) mmol/L Chloride 95 L (98-107) mmol/L Carbon Dioxide 32.3 H (21.0-32.0) mmol/L BUN 29 H (7.0-18.0) mg/dL Creatinine 1.0 (0.8-1.3) mg/dL Est Cr Clr Drug Dosing 62.86 mL/min Estimated GFR (MDRD) > 60.0 ml/min Glucose 234 H (74-106) mg/dL POC Glucose 240 H (60-110) mg/dL Calcium 9.9 (8.5-10.1) mg/dL Total Bilirubin 0.6 (0.2-1.0) mg/dL AST 28 (15-37) IU/L ALT 47 (14-63) IU/L Alkaline Phosphatase 93 (46-116) U/L Troponin I < 0.050 (0.000-0.056) ng/mL Total Protein 7.4 (6.4-8.2) g/dL Albumin 3.3 L (3.4-5.0) g/dL Globulin 4.1 H (2.6-4.0) g/dL Albumin/Globulin Ratio 0.8 L (0.9-1.6) 02/09/20 Range/Units 11:48 WBC (4.0-11.0) K/uL RBC (4.50-5.90) M/uL Hgb (13.0-17.0) g/dL Hct (38.0-50.0) % MCV (80.0-98.0) fL MCH (27.0-32.0) pg MCHC (31.0-37.0) g/dL RDW Std Deviation (28.0-62.0) fl RDW Coeff of Rocco (11.0-15.0) % Plt Count (150-400) K/uL MPV (7.40-12.00) fL Add Manual Diff Neutrophils % (Manual) (48.0-80.0) % Band Neutrophils % % Lymphocytes % (Manual) (16.0-40.0) % Monocytes % (Manual) (0.0-15.0) % Nucleated RBC % /100WBC Absolute Seg Neuts (1.4-5.7) Band Neutrophils # Lymphocytes # (Manual) (0.6-2.4) Monocytes # (Manual) (0.0-0.8) Nucleated RBCs # K/uL Reactive Lymphocytes ABG pH 7.409 (7.35-7.45) ABG pCO2 55 H (35-45) mmHG ABG pO2 69 L (75-100) mmHG ABG HCO3 34 H (22-26) mEq/L ABG Total CO2 30.7 ABG Base Excess 8.0 H (-2.0-2.0) Sodium (136-148) mmol/L Potassium (3.5-5.1) mmol/L Chloride (98-107) mmol/L Carbon Dioxide (21.0-32.0) mmol/L BUN (7.0-18.0) mg/dL Creatinine (0.8-1.3) mg/dL Est Cr Clr Drug Dosing mL/min Estimated GFR (MDRD) ml/min Glucose (74-106) mg/dL POC Glucose (60-110) mg/dL Calcium (8.5-10.1) mg/dL Total Bilirubin (0.2-1.0) mg/dL AST (15-37) IU/L ALT (14-63) IU/L Alkaline Phosphatase (46-116) U/L Troponin I (0.000-0.056) ng/mL Total Protein (6.4-8.2) g/dL Albumin (3.4-5.0) g/dL Globulin (2.6-4.0) g/dL Albumin/Globulin Ratio (0.9-1.6) Result Diagrams: 02/09/20 11:32 02/09/20 11:32 Jason Results Last 24 hrs: Microbiology 02/09/20 11:36 Influenza Type A Antigen Screen - Final Nasopharyngeal Swab NEGATIVE INFLUENZA A VIRUS AG REFERENCE RANGE: NEGATIVE Influenza Type B Antigen Screen - Final NEGATIVE INFLUENZA B VIRUS AG REFERENCE RANGE: NEGATIVE Sepsis Event Note - Evaluation Sepsis Screening Result: No Definite Risk - Focused Exam Vital Signs: Vital Signs Temp Pulse Resp BP Pulse Ox 02/09/20 13:30 96 24 H 137/90 95 02/09/20 12:30 106 H 28 H 139/75 95 02/09/20 11:31 97.9 F 112 H 40 H 168/104 H 73 L Date Exam was Performed: 02/09/20 Time Exam was Performed: 16:07 Problem List Initiated/Reviewed/Updated: Yes Orders Last 24hrs: Active Orders 24 hr Category Date Time Status Admission Status [Patient Status] [ADT] Stat ADT 02/09/20 13:07 Active Blood Glucose Check, Bedside [RC] TIDMEALS Care 02/09/20 14:09 Active CPAP Adult [RT BiPAP/CPAP] [RC] ASDIRECTED Care 02/09/20 11:59 Active EKG Documentation Completion [RC] STAT Care 02/09/20 11:34 Active Oxygen Therapy [RC] PRN Care 02/09/20 14:09 Active RT Aerosol Therapy [RC] ASDIRECTED Care 02/09/20 11:25 Active RT Aerosol Therapy [RC] ASDIRECTED Care 02/09/20 14:32 Active Up With Assistance [RC] ASDIRECTED Care 02/09/20 14:09 Active VTE/DVT Education [RC] PER UNIT ROUTINE Care 02/09/20 14:09 Active Vital Signs [RC] Q1H Care 02/09/20 14:09 Active [employer] Diet [DIET] Diet 02/09/20 Lunch Active CULTURE BLOOD [BC] Stat Lab 02/09/20 14:36 Ordered CULTURE BLOOD [BC] Stat Lab 02/09/20 14:36 Ordered LACTIC ACID,WHOLE BLOOD [BG] Stat Lab 02/09/20 14:35 Ordered MAGNESIUM [CHEM] Routine Lab 02/09/20 11:32 Received PHOSPHORUS [CHEM] Routine Lab 02/09/20 11:32 Received Acetaminophen [Tylenol] Med 02/09/20 14:09 Active 650 mg PO Q4H PRN Albuterol/Ipratropium [DuoNeb 3.0-0.5 MG/3 ML] Med 02/09/20 18:00 Active 3 ml NEB Q4HRRT Heparin Sodium Med 02/09/20 14:45 Ordered 5,000 units SUBCUT Q8H Ondansetron [Zofran ODT] Med 02/09/20 14:09 Active 4 mg PO Q4H PRN Ondansetron [Zofran] Med 02/09/20 14:09 Active 4 mg IVPUSH Q4H PRN Pantoprazole [ProTONIX] Med 02/10/20 07:30 Active 40 mg PO ACBREAKFAST Pharmacy to Dose - Vancomycin Med 02/09/20 14:45 Ordered 1 dose .XX ASDIRECTED Piperacillin/Tazobactam [Piperacil-Tazobact] 4.5 gm Med 02/09/20 14:45 Ordered Sodium Chloride 0.9% [Normal Saline] 100 ml IV Q6H Sodium Chloride 0.9% [Normal Saline] 1,000 ml Med 02/09/20 14:42 Ordered IV STAT Sodium Chloride 0.9% [Saline Flush] Med 02/09/20 11:26 Active 10 ml FLUSH ASDIRECTED PRN Sodium Chloride 0.9% [Saline Flush] Med 02/09/20 11:26 Active 2.5 ml FLUSH ASDIRECTED PRN methylPREDNISolone Sod Succ [Solu-MEDROL] Med 02/09/20 14:45 Ordered 60 mg IVPUSH Q12H Blood Culture x2 Reflex Set [OM.PC] Stat Oth 02/09/20 14:35 Ordered Saline Lock Insert [OM.PC] Stat Oth 02/09/20 11:26 Ordered Resuscitation Status Routine Resus Stat 02/09/20 14:09 Ordered Medication Orders Acetaminophen (Tylenol) 650 mg PO Q4H PRN PRN Reason: Pain (Mild 1-3)/fever Albuterol/Ipratropium (Duoneb 3.0-0.5 Mg/3 Ml) 3 ml NEB Q4HRRT MAGEN Heparin Sodium (Porcine) (Heparin Sodium) 5,000 units SUBCUT Q8H MAGEN Piperacillin Sod/Tazobactam (Sod 4.5 gm/ Sodium Chloride) 100 mls @ 100 mls/hr IV Q6H MAGEN Sodium Chloride (Normal Saline) 1,000 mls @ 75 mls/hr IV STAT ONE Stop: 02/10/20 04:01 Methylprednisolone Sodium Succinate (Solu-Medrol) 60 mg IVPUSH Q12H MAGEN Ondansetron HCl (Zofran Odt) 4 mg PO Q4H PRN PRN Reason: nausea, able to take PO Ondansetron HCl (Zofran) 4 mg IVPUSH Q4H PRN PRN Reason: Nausea Pantoprazole Sodium (Protonix) 40 mg PO ACBREAKFAST [facility] Sodium Chloride (Saline Flush) 10 ml FLUSH ASDIRECTED PRN PRN Reason: Keep Vein Open Sodium Chloride (Saline Flush) 2.5 ml FLUSH ASDIRECTED PRN PRN Reason: Keep Vein Open Vancomycin HCl (Pharmacy To Dose - Vancomycin) 1 dose .XX ASDIRECTED [facility] Assessment/Plan Comment:: Assessment and Plan: 1. Acute on chronic hypoxic hypercarbic respiratory failure secondary to COPD exacerbation vs community acquired pneumonia: - Admit to ICU on BiPAP. Will order DuoNebs q4h and IV solumedrol 60 mg BID. Will start IV levaquin and IV NS 1 L @ 75 cc/hr. Blood cultures pending. Lactic acid 2.5. Will continue to trend lactate. VSS. 2. Leukocytosis secondary to recent steroids vs CAP. 3. Hypomagnesemia: - Replete with 2 gm IV. Will recheck with AM labs. 4. Diabetes mellitus type 2: - ADA diet. SSI. Accucheks TIDAC. 5. Past medical history of [place] s/p stent, HTN, Hyperlipidemia, CHF, anxiety and ASHUTOSH: - Resume home medications. 6. DVT prophylaxis: heparin.
[2020-02-09] MEDS ORDERED: Magnesium Sulfate/Water 2 GM in Premix Bag 1 BAG IV ONE (15:22)
[2020-02-09] MEDS: Heparin Sodium 5,000 Units/ML Vial SUBCUT SCH ×2 (15:29→22:04)
[2020-02-09] MEDS: Levofloxacin/Dextrose 5%-Water 750 MG in Premix Bag 1 BAG IV SCH (15:43)
--- NOTE | 2020-02-09 17:15 | PN ---
THC Physician - Brief Progress [id number]/11/2020 17:09[facility] Ry[place] Gr, [place] - MWN (FAVIAN) - MWN ICULAN SAMDate of Service 02/09/2020 17:09HPI/Events o f Note eICU update:Discussed with bedside attending in regards to Mr Hernandez ongoing care. There is concern for possible underlying infectious process for this gentlemans COPD exacebation; Recently he was hospitalized and improved after recieving Abx treatment at that time. Plan:- Empirically started on Levaquin for now. - Will send procalcitonin- sendout test- If patient is to become hemodynamically unstable, persistently febrile or has worsening hypoxia; likely will escalated to Vanc/Zosyn at that time. - Initial lactate 2.6 will trend after 4 hours, currently receiving IVFs.Interventions Major-H ypoxemia - evaluation and management, Infection - evaluation and management
[2020-02-09] MEDS: Insulin Aspart 100 Units/ML 3 ML Pen SUBCUT SCH (17:30)
[2020-02-09] MEDS: Albuterol/Ipratropium 3.0-0.5 MG/3 ML Neb Soln NEB SCH ×2 (17:37→21:40)
[2020-02-09] MEDS ORDERED: DICLOFENAC SODIUM 4 GM TOP PRN (19:20)
[2020-02-09] MEDS: Gabapentin 300 MG Cap PO SCH ×2 (20:09→22:04)
[2020-02-09] MEDS: Rosuvastatin 10 MG Tab PO SCH (20:41)
[2020-02-09] MEDS: Metoprolol Tartrate 50 MG Tab PO SCH (20:42)
[2020-02-09] MEDS: Acetaminophen/HYDROcodone 325-10 MG Tab PO PRN (20:42)
[2020-02-09] MEDS: Insulin Glargine,Human Rec. Analog 100 Units/ML 3 ML Pen SUBCUT SCH (20:48)
[2020-02-09] MEDS: methylPREDNISolone Sodium Succinate 40 MG/1 ML SDV IVPUSH SCH (22:05)
[2020-02-10] MEDS: Albuterol/Ipratropium 3.0-0.5 MG/3 ML Neb Soln NEB SCH ×6 (01:32→21:24)
[2020-02-10] MEDS: Acetaminophen/HYDROcodone 325-10 MG Tab PO PRN ×3 (05:48→22:51)
[2020-02-10] MEDS: Heparin Sodium 5,000 Units/ML Vial SUBCUT SCH ×3 (05:48→22:50)
[2020-02-10 06:08] LABS: BLOOD UREA NITROGEN,BUN 30 mg/dL (7.0-18.0); CARBON DIOXIDE,CO2 31.2 mmol/L (21.0-32.0); CHLORIDE,CL 101 mmol/L (98-107); GLUCOSE RANDOM 320 mg/dL (74-106); POTASSIUM,K 4.9 mmol/L (3.5-5.1); SODIUM,NA 138 mmol/L (136-148)
[2020-02-10] MEDS: Pantoprazole 40 MG Tab.CR PO SCH (06:35)
[2020-02-10] MEDS: Insulin Aspart 100 Units/ML 3 ML Pen SUBCUT SCH ×3 (07:58→18:05)
--- NOTE | 2020-02-10 08:32 | PN ---
THC Physician - Brief Progress [id number]/12/2020 08:31[facility] Ryne Gr, [place] - MWN (VIMALN) - MWN ICUREFLAN ESPINALDate of Service 02/10/2020 08:31HPI/Events o f Note eICU Progress [id number] admitted for AECOPD and sepsis attributed to a suspected bacterial pneum onia. History obtained primarily from review of EMR.Camera exam: Laying in bed. Vitals monitor review ed.Vitals: reviewedLabs: reviewedRadiology: reviewedMeds: reviewedeICU Impression and Recommendations :COPD exacerbationSepsis given tachypnea and leukocytosis in the setting of suspected pneumonia- NIPP V PRN for work of breathing- continue scheduled bronchodilators, consider changing IV methylprednisol one to 40mg oral prednisone daily for a total course of 5 days- continue levofloxacin-Consider checki ng for respiratory virus PCR panel and any risk factors for travel recently.-Agree with holding off o n PNA coverage for now. Leukocytosis possibly related to recentprednisone burst pack.- Empirically st arted on Levaquin for now.- Will send procalcitonin- sendout test- If patient is to become hemodynami jazmin unstable, persistently febrile or has worsening hypoxia;likely will escalated to Vanc/Zosyn at that time.- Initial lactate 2.6 will trend after 4 hours, currently receiving IVFs.DM2-Insulin slidin g scale while inpatient. Recommended blood glucose level range [id number] and GI prophylaxis as appro priate.We are available to assist in further clarification, or implementation of any of the above rec ommendations if desired by primary service.Thank you for allowing us to participate in the care of th is patient.The above note transcribed with the assistance of dictation software. Please excuse any er rors.Interventions Major-Respiratory failure - evaluation and management, Sepsis - evaluation and man agement
[2020-02-10] MEDS: Insulin Glargine,Human Rec. Analog 100 Units/ML 3 ML Pen SUBCUT SCH ×2 (09:45→21:36)
[2020-02-10] MEDS: Spironolactone 25 MG Tab PO SCH (09:49)
[2020-02-10] MEDS: Citalopram 20 MG Tab PO SCH (09:49)
[2020-02-10] MEDS: Furosemide 40 MG Tab PO SCH (09:50)
[2020-02-10] MEDS: Aspirin 81 MG Tab.EC PO SCH (09:50)
[2020-02-10] MEDS: Metoprolol Tartrate 50 MG Tab PO SCH ×2 (09:51→21:32)
[2020-02-10] MEDS: Gabapentin 300 MG Cap PO SCH ×4 (09:51→21:32)
[2020-02-10] MEDS: Nystatin Topical Powder 15 GM Bottle TOP SCH ×2 (09:52→21:33)
[2020-02-10] MEDS: Clopidogrel 75 MG Tab PO SCH (09:52)
[2020-02-10] MEDS: methylPREDNISolone Sodium Succinate 40 MG/1 ML SDV IVPUSH SCH (11:00)
--- NOTE | 2020-02-10 12:01 | PCM.PN ---
- General Info Date of Service: 02/10/20 Subjective Update: Reports breathing is much improved since yesterday. Has been tolerating diet well and urinating. Denies fevers, chills, nausea, chest pain or vomiting. - Patient Data Vitals - Most Recent: Last Vital Signs Temp 97.6 F 02/10/20 08:00 Pulse 92 02/10/20 09:51 Resp 18 02/10/20 10:00 BP 118/52 L 02/10/20 10:00 Pulse Ox 89 L 02/10/20 10:00 Weight - Most Recent: 236 lb 6.4 oz I&O - Last 24 Hours: Intake & Output 02/09/20 02/10/20 02/10/20 22:59 06:59 14:59 Intake Total 200 1353 Output Total 750 Balance 200 603 Lab Results Last 24 Hours: Laboratory Results - last 24 hr 02/09/20 02/09/20 02/09/20 Range/Units 11:32 11:32 11:32 WBC 33.50 H (4.0-11.0) K/uL RBC 4.69 (4.50-5.90) M/uL Hgb 14.0 (13.0-17.0) g/dL Hct 45.2 (38.0-50.0) % MCV 96.4 (80.0-98.0) fL MCH 29.9 (27.0-32.0) pg MCHC 31.0 (31.0-37.0) g/dL RDW Std Deviation 52.5 (28.0-62.0) fl RDW Coeff of Rocco 15 (11.0-15.0) % Plt Count 245 (150-400) K/uL MPV 10.60 (7.40-12.00) fL Neut % (Auto) (48.0-80.0) % Lymph % (Auto) (16.0-40.0) % [place] % (Auto) (0.0-15.0) % Eos % (Auto) (0.0-7.0) % Baso % (Auto) (0.0-1.5) % Neut # (Auto) (1.4-5.7) K/uL Lymph # (Auto) (0.6-2.4) K/uL [place] # (Auto) (0.0-0.8) K/uL Eos # (Auto) (0.0-0.7) K/uL Baso # (Auto) (0.0-0.1) K/uL Add Manual Diff YES Neutrophils % (Manual) 78 (48.0-80.0) % Band Neutrophils % 2 % Lymphocytes % (Manual) 13 L (16.0-40.0) % Monocytes % (Manual) 7 (0.0-15.0) % Nucleated RBC % 0.0 /100WBC Absolute Seg Neuts 26.1 H (1.4-5.7) Band Neutrophils # 0.7 Lymphocytes # (Manual) 4.4 H (0.6-2.4) Monocytes # (Manual) 2.3 H (0.0-0.8) Nucleated RBCs # 0 K/uL Reactive Lymphocytes FEW ABG pH (7.35-7.45) ABG pCO2 (35-45) mmHG ABG pO2 (75-100) mmHG ABG HCO3 (22-26) mEq/L ABG Total CO2 ABG Base Excess (-2.0-2.0) Lactate (0.20-2.00) mmol/L Sodium 136 (136-148) mmol/L Potassium 5.1 (3.5-5.1) mmol/L Chloride 95 L (98-107) mmol/L Carbon Dioxide 32.3 H (21.0-32.0) mmol/L BUN 29 H (7.0-18.0) mg/dL Creatinine 1.0 (0.8-1.3) mg/dL Est Cr Clr Drug Dosing 62.86 mL/min Estimated GFR (MDRD) > 60.0 ml/min Glucose 234 H (74-106) mg/dL POC Glucose (60-110) mg/dL Calcium 9.9 (8.5-10.1) mg/dL Phosphorus 2.7 (2.6-4.7) mg/dL Magnesium 1.6 L (1.8-2.4) mg/dL Total Bilirubin 0.6 (0.2-1.0) mg/dL AST 28 (15-37) IU/L ALT 47 (14-63) IU/L Alkaline Phosphatase 93 (46-116) U/L Troponin I < 0.050 (0.000-0.056) ng/mL Total Protein 7.4 (6.4-8.2) g/dL Albumin 3.3 L (3.4-5.0) g/dL Globulin 4.1 H (2.6-4.0) g/dL Albumin/Globulin Ratio 0.8 L (0.9-1.6) 02/09/20 02/09/20 02/09/20 Range/Units 11:48 14:48 17:27 WBC (4.0-11.0) K/uL RBC (4.50-5.90) M/uL Hgb (13.0-17.0) g/dL Hct (38.0-50.0) % MCV (80.0-98.0) fL MCH (27.0-32.0) pg MCHC (31.0-37.0) g/dL RDW Std Deviation (28.0-62.0) fl RDW Coeff of Rocco (11.0-15.0) % Plt Count (150-400) K/uL MPV (7.40-12.00) fL Neut % (Auto) (48.0-80.0) % Lymph % (Auto) (16.0-40.0) % [place] % (Auto) (0.0-15.0) % Eos % (Auto) (0.0-7.0) % Baso % (Auto) (0.0-1.5) % Neut # (Auto) (1.4-5.7) K/uL Lymph # (Auto) (0.6-2.4) K/uL [place] # (Auto) (0.0-0.8) K/uL Eos # (Auto) (0.0-0.7) K/uL Baso # (Auto) (0.0-0.1) K/uL Add Manual Diff Neutrophils % (Manual) (48.0-80.0) % Band Neutrophils % % Lymphocytes % (Manual) (16.0-40.0) % Monocytes % (Manual) (0.0-15.0) % Nucleated RBC % /100WBC Absolute Seg Neuts (1.4-5.7) Band Neutrophils # Lymphocytes # (Manual) (0.6-2.4) Monocytes # (Manual) (0.0-0.8) Nucleated RBCs # K/uL Reactive Lymphocytes ABG pH 7.409 (7.35-7.45) ABG pCO2 55 H (35-45) mmHG ABG pO2 69 L (75-100) mmHG ABG HCO3 34 H (22-26) mEq/L ABG Total CO2 30.7 ABG Base Excess 8.0 H (-2.0-2.0) Lactate 2.6 H* (0.20-2.00) mmol/L Sodium (136-148) mmol/L Potassium (3.5-5.1) mmol/L Chloride (98-107) mmol/L Carbon Dioxide (21.0-32.0) mmol/L BUN (7.0-18.0) mg/dL Creatinine (0.8-1.3) mg/dL Est Cr Clr Drug Dosing mL/min Estimated GFR (MDRD) ml/min Glucose (74-106) mg/dL POC Glucose 363 H (60-110) mg/dL Calcium (8.5-10.1) mg/dL Phosphorus (2.6-4.7) mg/dL Magnesium (1.8-2.4) mg/dL Total Bilirubin (0.2-1.0) mg/dL AST (15-37) IU/L ALT (14-63) IU/L Alkaline Phosphatase (46-116) U/L Troponin I (0.000-0.056) ng/mL Total Protein (6.4-8.2) g/dL Albumin (3.4-5.0) g/dL Globulin (2.6-4.0) g/dL Albumin/Globulin Ratio (0.9-1.6) 02/09/20 02/09/20 02/10/20 Range/Units 19:35 20:44 00:28 WBC (4.0-11.0) K/uL RBC (4.50-5.90) M/uL Hgb (13.0-17.0) g/dL Hct (38.0-50.0) % MCV (80.0-98.0) fL MCH (27.0-32.0) pg MCHC (31.0-37.0) g/dL RDW Std Deviation (28.0-62.0) fl RDW Coeff of Rocco (11.0-15.0) % Plt Count (150-400) K/uL MPV (7.40-12.00) fL Neut % (Auto) (48.0-80.0) % Lymph % (Auto) (16.0-40.0) % [place] % (Auto) (0.0-15.0) % Eos % (Auto) (0.0-7.0) % Baso % (Auto) (0.0-1.5) % Neut # (Auto) (1.4-5.7) K/uL Lymph # (Auto) (0.6-2.4) K/uL [place] # (Auto) (0.0-0.8) K/uL Eos # (Auto) (0.0-0.7) K/uL Baso # (Auto) (0.0-0.1) K/uL Add Manual Diff Neutrophils % (Manual) (48.0-80.0) % Band Neutrophils % % Lymphocytes % (Manual) (16.0-40.0) % Monocytes % (Manual) (0.0-15.0) % Nucleated RBC % /100WBC Absolute Seg Neuts (1.4-5.7) Band Neutrophils # Lymphocytes # (Manual) (0.6-2.4) Monocytes # (Manual) (0.0-0.8) Nucleated RBCs # K/uL Reactive Lymphocytes ABG pH (7.35-7.45) ABG pCO2 (35-45) mmHG ABG pO2 (75-100) mmHG ABG HCO3 (22-26) mEq/L ABG Total CO2 ABG Base Excess (-2.0-2.0) Lactate 3.4 H* 2.2 H* (0.20-2.00) mmol/L Sodium (136-148) mmol/L Potassium (3.5-5.1) mmol/L Chloride (98-107) mmol/L Carbon Dioxide (21.0-32.0) mmol/L BUN (7.0-18.0) mg/dL Creatinine (0.8-1.3) mg/dL Est Cr Clr Drug Dosing mL/min Estimated GFR (MDRD) ml/min Glucose (74-106) mg/dL POC Glucose 372 H (60-110) mg/dL Calcium (8.5-10.1) mg/dL Phosphorus (2.6-4.7) mg/dL Magnesium (1.8-2.4) mg/dL Total Bilirubin (0.2-1.0) mg/dL AST (15-37) IU/L ALT (14-63) IU/L Alkaline Phosphatase (46-116) U/L Troponin I (0.000-0.056) ng/mL Total Protein (6.4-8.2) g/dL Albumin (3.4-5.0) g/dL Globulin (2.6-4.0) g/dL Albumin/Globulin Ratio (0.9-1.6) 02/10/20 02/10/20 02/10/20 Range/Units 05:39 05:39 05:39 WBC 13.83 H (4.0-11.0) K/uL RBC 4.21 L (4.50-5.90) M/uL Hgb 12.2 L (13.0-17.0) g/dL Hct 39.8 (38.0-50.0) % MCV 94.5 (80.0-98.0) fL MCH 29.0 (27.0-32.0) pg MCHC 30.7 L (31.0-37.0) g/dL RDW Std Deviation 50.7 (28.0-62.0) fl RDW Coeff of Rocco 15 (11.0-15.0) % Plt Count 183 (150-400) K/uL MPV 10.30 (7.40-12.00) fL Neut % (Auto) 90.0 H (48.0-80.0) % Lymph % (Auto) 8.7 L (16.0-40.0) % [place] % (Auto) 1.2 (0.0-15.0) % Eos % (Auto) 0.0 (0.0-7.0) % Baso % (Auto) 0.1 (0.0-1.5) % Neut # (Auto) 12.5 H (1.4-5.7) K/uL Lymph # (Auto) 1.2 (0.6-2.4) K/uL [place] # (Auto) 0.2 (0.0-0.8) K/uL Eos # (Auto) 0.0 (0.0-0.7) K/uL Baso # (Auto) 0.0 (0.0-0.1) K/uL Add Manual Diff Neutrophils % (Manual) (48.0-80.0) % Band Neutrophils % % Lymphocytes % (Manual) (16.0-40.0) % Monocytes % (Manual) (0.0-15.0) % Nucleated RBC % 0.0 /100WBC Absolute Seg Neuts (1.4-5.7) Band Neutrophils # Lymphocytes # (Manual) (0.6-2.4) Monocytes # (Manual) (0.0-0.8) Nucleated RBCs # 0 K/uL Reactive Lymphocytes ABG pH (7.35-7.45) ABG pCO2 (35-45) mmHG ABG pO2 (75-100) mmHG ABG HCO3 (22-26) mEq/L ABG Total CO2 ABG Base Excess (-2.0-2.0) Lactate 1.0 (0.20-2.00) mmol/L Sodium 138 (136-148) mmol/L Potassium 4.9 (3.5-5.1) mmol/L Chloride 101 (98-107) mmol/L Carbon Dioxide 31.2 (21.0-32.0) mmol/L BUN 30 H (7.0-18.0) mg/dL Creatinine 1.0 (0.8-1.3) mg/dL Est Cr Clr Drug Dosing 64.84 mL/min Estimated GFR (MDRD) > 60.0 ml/min Glucose 320 H (74-106) mg/dL POC Glucose (60-110) mg/dL Calcium 8.7 (8.5-10.1) mg/dL Phosphorus 3.4 (2.6-4.7) mg/dL Magnesium 2.0 (1.8-2.4) mg/dL Total Bilirubin 0.4 (0.2-1.0) mg/dL AST 12 L (15-37) IU/L ALT 32 (14-63) IU/L Alkaline Phosphatase 70 (46-116) U/L Troponin I (0.000-0.056) ng/mL Total Protein 6.0 L (6.4-8.2) g/dL Albumin 2.5 L (3.4-5.0) g/dL Globulin 3.5 (2.6-4.0) g/dL Albumin/Globulin Ratio 0.7 L (0.9-1.6) 02/10/20 02/10/20 Range/Units 06:39 11:17 WBC (4.0-11.0) K/uL RBC (4.50-5.90) M/uL Hgb (13.0-17.0) g/dL Hct (38.0-50.0) % MCV (80.0-98.0) fL MCH (27.0-32.0) pg MCHC (31.0-37.0) g/dL RDW Std Deviation (28.0-62.0) fl RDW Coeff of Rocco (11.0-15.0) % Plt Count (150-400) K/uL MPV (7.40-12.00) fL Neut % (Auto) (48.0-80.0) % Lymph % (Auto) (16.0-40.0) % [place] % (Auto) (0.0-15.0) % Eos % (Auto) (0.0-7.0) % Baso % (Auto) (0.0-1.5) % Neut # (Auto) (1.4-5.7) K/uL Lymph # (Auto) (0.6-2.4) K/uL [place] # (Auto) (0.0-0.8) K/uL Eos # (Auto) (0.0-0.7) K/uL Baso # (Auto) (0.0-0.1) K/uL Add Manual Diff Neutrophils % (Manual) (48.0-80.0) % Band Neutrophils % % Lymphocytes % (Manual) (16.0-40.0) % Monocytes % (Manual) (0.0-15.0) % Nucleated RBC % /100WBC Absolute Seg Neuts (1.4-5.7) Band Neutrophils # Lymphocytes # (Manual) (0.6-2.4) Monocytes # (Manual) (0.0-0.8) Nucleated RBCs # K/uL Reactive Lymphocytes ABG pH (7.35-7.45) ABG pCO2 (35-45) mmHG ABG pO2 (75-100) mmHG ABG HCO3 (22-26) mEq/L ABG Total CO2 ABG Base Excess (-2.0-2.0) Lactate (0.20-2.00) mmol/L Sodium (136-148) mmol/L Potassium (3.5-5.1) mmol/L Chloride (98-107) mmol/L Carbon Dioxide (21.0-32.0) mmol/L BUN (7.0-18.0) mg/dL Creatinine (0.8-1.3) mg/dL Est Cr Clr Drug Dosing mL/min Estimated GFR (MDRD) ml/min Glucose (74-106) mg/dL POC Glucose 338 H 419 H (60-110) mg/dL Calcium (8.5-10.1) mg/dL Phosphorus (2.6-4.7) mg/dL Magnesium (1.8-2.4) mg/dL Total Bilirubin (0.2-1.0) mg/dL AST (15-37) IU/L ALT (14-63) IU/L Alkaline Phosphatase (46-116) U/L Troponin I (0.000-0.056) ng/mL Total Protein (6.4-8.2) g/dL Albumin (3.4-5.0) g/dL Globulin (2.6-4.0) g/dL Albumin/Globulin Ratio (0.9-1.6) Jason Results Last 24 Hours: Microbiology 02/09/20 11:36 Influenza Type A Antigen Screen - Final Nasopharyngeal Swab NEGATIVE INFLUENZA A VIRUS AG REFERENCE RANGE: NEGATIVE Influenza Type B Antigen Screen - Final NEGATIVE INFLUENZA B VIRUS AG REFERENCE RANGE: NEGATIVE Med Orders - Current: Current Medications Acetaminophen (Tylenol) 650 mg PO Q4H PRN PRN Reason: Pain (Mild 1-3)/fever Hydrocodone Bitart/Acetaminophen ([place] 325-10 Mg) 1 tab PO TID PRN PRN Reason: PAIN Last Admin: 02/10/20 05:48 Dose: 1 tab Albuterol/Ipratropium (Duoneb 3.0-0.5 Mg/3 Ml) 3 ml NEB Q4HRRT MAGEN Last Admin: 02/10/20 09:21 Dose: 3 ml Aspirin (Halfprin) 81 mg PO DAILY [facility]EN Last Admin: 02/10/20 09:50 Dose: 81 mg Citalopram Hydrobromide (Celexa) 10 mg PO DAILY [facility] Last Admin: 02/10/20 09:49 Dose: 10 mg Clopidogrel Bisulfate (Plavix) 75 mg PO DAILY [facility] Last Admin: 02/10/20 09:52 Dose: 75 mg Furosemide (Lasix) 40 mg PO DAILY [facility] Last Admin: 02/10/20 09:50 Dose: 40 mg Gabapentin (Neurontin) 300 mg PO BID@1200,1800 [facility] Last Admin: 02/09/20 20:09 Dose: 300 mg Gabapentin (Neurontin) 600 mg PO BID [facility] Last Admin: 02/10/20 09:51 Dose: 600 mg Heparin Sodium (Porcine) (Heparin Sodium) 5,000 units SUBCUT Q8H [facility] Last Admin: 02/10/20 05:48 Dose: 5,000 units Levofloxacin/Dextrose 750 mg/ (Premix) 150 mls @ 100 mls/hr IV Q24H [facility] Last Admin: 02/09/20 15:43 Dose: 100 mls/hr Insulin Aspart (Novolog) 0 unit SUBCUT TIDAC [facility]; Protocol Last Admin: 02/10/20 07:58 Dose: 8 units Insulin Glargine (Lantus Solostar) 28 units SUBCUT BID [facility] Last Admin: 02/10/20 09:45 Dose: 28 units Metoprolol Tartrate (Lopressor) 50 mg PO BID [facility] Last Admin: 02/10/20 09:51 Dose: 50 mg Nystatin (Nystop) 0 gm TOP BID [facility] Last Admin: 02/10/20 09:52 Dose: 1 units Ondansetron HCl (Zofran Odt) 4 mg PO Q4H PRN PRN Reason: nausea, able to take PO Ondansetron HCl (Zofran) 4 mg IVPUSH Q4H PRN PRN Reason: Nausea Pantoprazole Sodium (Protonix) 40 mg PO ACBREAKFAST [facility] Last Admin: 02/10/20 06:35 Dose: 40 mg Diclofenac Sodium 4 (Gm) 4 each TOP QID PRN PRN Reason: pain and inflammation Prednisone (Prednisone) 40 mg PO WITHBREAKFAST [facility] Rosuvastatin Calcium (Crestor) 40 mg PO BEDTIME [facility] Last Admin: 02/09/20 20:41 Dose: 40 mg Sodium Chloride (Saline Flush) 10 ml FLUSH ASDIRECTED PRN PRN Reason: Keep Vein Open Sodium Chloride (Saline Flush) 2.5 ml FLUSH ASDIRECTED PRN PRN Reason: Keep Vein Open Spironolactone (Aldactone) 50 mg PO DAILY [facility] Last Admin: 02/10/20 09:49 Dose: 50 mg Discontinued Medications Albuterol (Proventil Neb Soln) 7.5 mg NEB ONETIME ONE Stop: 02/09/20 11:26 Last Admin: 02/09/20 11:39 Dose: 7.5 mg Albuterol (Proventil Neb Soln) Confirm Administered Dose 2.5 mg .ROUTE .STK-MED ONE Stop: 02/09/20 11:27 Last Admin: 02/09/20 11:39 Dose: Not Given Heparin Sodium (Porcine) (Heparin Sodium) 5,000 units SUBCUT Q8H [facility] Piperacillin Sod/Tazobactam (Sod 4.5 gm/ Sodium Chloride) 100 mls @ 100 mls/hr IV Q6H [facility] Last Admin: 02/09/20 17:34 Dose: Not Given Sodium Chloride (Normal Saline) 1,000 mls @ 75 mls/hr IV STAT ONE Stop: 02/10/20 04:01 Last Admin: 02/09/20 15:22 Dose: 75 mls/hr Vancomycin HCl 1.5 gm/ Premix 300 mls @ 200 mls/hr IV Q12H [facility] Magnesium Sulfate 2 gm/ Premix 50 mls @ 50 mls/hr IV ONETIME ONE Stop: 02/09/20 16:21 Last Admin: 02/09/20 15:50 Dose: 50 mls/hr Methylprednisolone Sodium Succinate (Solu-Medrol) 125 mg IVPUSH ONETIME ONE Stop: 02/09/20 11:28 Last Admin: 02/09/20 11:43 Dose: 125 mg Methylprednisolone Sodium Succinate (Solu-Medrol) 60 mg IVPUSH Q12H [facility] Last Admin: 02/09/20 17:36 Dose: Not Given Methylprednisolone Sodium Succinate (Solu-Medrol) 60 mg IVPUSH Q12H [facility] Last Admin: 02/10/20 11:00 Dose: 60 mg Vancomycin HCl (Pharmacy To Dose - Vancomycin) 1 dose .XX ASDIRECTED [facility] - Exam General: Alert, Oriented, Cooperative, No Acute Distress HEENT: Other (NC in place) Lungs: Normal Respiratory Effort, Other (mild wheezes bilaterally, quiet breath sounds) Cardiovascular: Regular Rate, Regular Rhythm GI/Abdominal Exam: Normal Bowel Sounds, Soft, Non-Tender, No Distention Extremities: Other (trace pitting edema b/l) Sepsis Event Note - Evaluation Sepsis Screening Result: Severe Sepsis Risk - Focused Exam Vital Signs: Vital Signs Temp Pulse Pulse Resp BP BP Pulse Ox 02/10/20 10:00 18 118/52 L 89 L 02/10/20 09:51 92 104/52 L 02/10/20 09:00 92 16 104/52 L 94 L 02/10/20 08:00 97.6 F 22 H 107/51 L 96 02/10/20 07:00 18 111/61 95 02/10/20 06:00 25 H 108/59 L 95 02/10/20 05:00 15 133/71 96 02/10/20 04:00 97.4 F 15 104/59 L 96 02/10/20 03:00 17 116/60 95 02/10/20 02:00 17 109/59 L 96 02/10/20 01:00 21 H 115/66 95 02/10/20 00:00 97 F 15 129/69 97 Date Exam was Performed: 02/10/20 Time Exam was Performed: 11:53 - Problem List Review Problem List Initiated/Reviewed/Updated: Yes - My Orders Last 24 Hours: My Active Orders 02/09/20 11:35 CULTURE BLOOD [BC] Stat 02/09/20 14:09 Blood Glucose Check, Bedside [RC] TIDMEALS Oxygen Therapy [RC] PRN Up With Assistance [RC] ASDIRECTED VTE/DVT Education [RC] PER UNIT ROUTINE Vital Signs [RC] Q1H Acetaminophen [Tylenol] 650 mg PO Q4H PRN Ondansetron [Zofran ODT] 4 mg PO Q4H PRN Ondansetron [Zofran] 4 mg IVPUSH Q4H PRN Resuscitation Status Routine 02/09/20 14:35 Blood Culture x2 Reflex Set [OM.PC] Stat 02/09/20 14:45 Heparin Sodium 5,000 units SUBCUT Q8H 02/09/20 14:48 CULTURE BLOOD [BC] Stat 02/09/20 15:30 Levofloxacin/Dextrose 5%-Water [Levaquin in D5W 750 MG/150 ML] 750 mg Premix Bag 1 bag IV Q24H 02/09/20 16:04 C DIFFICILE AG/TOXIN W/REFLEX [RM] Urgent 02/09/20 17:00 Insulin Aspart [NovoLOG] See Protocol SUBCUT TIDAC 02/09/20 18:30 Communication Order [RC] ROUTINE 02/09/20 19:20 Patient's Own Medication [Ptom] 4 each TOP QID PRN 02/09/20 19:30 Gabapentin [Neurontin] 300 mg PO BID@1200,1800 02/09/20 19:32 Acetaminophen/HYDROcodone [[place] 325-10 MG] 1 tab PO TID PRN 02/09/20 21:00 Insulin Glarg,Human.Rec.Analog [LantUS Solostar] 28 units SUBCUT BID Metoprolol Tartrate [Lopressor] 50 mg PO BID Rosuvastatin [Crestor] 40 mg PO BEDTIME 02/09/20 22:00 Gabapentin [Neurontin] 600 mg PO BID 02/09/20 Lunch [employer] Diet [DIET] 02/10/20 09:00 Aspirin [Halfprin] 81 mg PO DAILY Citalopram [Celexa] 10 mg PO DAILY Clopidogrel [Plavix] 75 mg PO DAILY Furosemide [Lasix] 40 mg PO DAILY Spironolactone [Aldactone] 50 mg PO DAILY 02/10/20 11:02 Consult to Physical Therapy [PT Evaluation and Treatment] [CONS] Routine 02/11/20 08:00 predniSONE 40 mg PO WITHBREAKFAST - Plan Plan:: Assessment and Plan: 1. Acute on chronic hypoxic hypercarbic respiratory failure secondary to COPD exacerbation vs community acquired pneumonia: - Patient currently on 3 L NC. Continue DuoNebs q4h. Will change to prednisone 40 mg qd. Continue IV levaquin. Blood cultures pending. Lactic acid was trended and is normal. VSS. 2. Leukocytosis secondary to recent steroids vs CAP, downtrending. 3. Hypomagnesemia, resolved. 4. Diabetes mellitus type 2: - ADA diet. SSI. Accucheks TIDAC. Blood sugars have been elevated overnight. Patient currently on lantus 28 units BID and will change to high-dose SSI. 5. Past medical history of [place] s/p stent, HTN, Hyperlipidemia, CHF, anxiety and ASHUTOSH: - Resume home medications. 6. DVT prophylaxis: heparin.
[2020-02-10] MEDS ORDERED: Insulin Aspart 100 Units/ML 3 ML Pen SUBCUT STA (13:48)
[2020-02-10] MEDS ORDERED: Insulin Regular, Human 100 Units/ML 10 ML Vial IVPUSH ONE (13:48)
[2020-02-10] MEDS: Levofloxacin/Dextrose 5%-Water 750 MG in Premix Bag 1 BAG IV SCH (17:07)
[2020-02-10] MEDS: Rosuvastatin 10 MG Tab PO SCH (21:31)
[2020-02-11] MEDS ORDERED: Insulin Aspart 100 Units/ML 3 ML Pen SUBCUT ONE (00:12)
[2020-02-11] MEDS: Albuterol/Ipratropium 3.0-0.5 MG/3 ML Neb Soln NEB SCH ×6 (02:16→23:25)
[2020-02-11] MEDS: Heparin Sodium 5,000 Units/ML Vial SUBCUT SCH ×3 (06:37→23:25)
[2020-02-11] MEDS: Pantoprazole 40 MG Tab.CR PO SCH (06:38)
[2020-02-11 06:52] LABS: BLOOD UREA NITROGEN,BUN 37 mg/dL (7.0-18.0); CARBON DIOXIDE,CO2 33.6 mmol/L (21.0-32.0); CHLORIDE,CL 100 mmol/L (98-107); GLUCOSE RANDOM 214 mg/dL (74-106); POTASSIUM,K 4.8 mmol/L (3.5-5.1); SODIUM,NA 138 mmol/L (136-148)
[2020-02-11] MEDS: Insulin Aspart 100 Units/ML 3 ML Pen SUBCUT SCH ×4 (08:17→20:39)
--- NOTE | 2020-02-11 08:17 | PN ---
THC Physician - Brief Progress [id number]/13/2020 08:12[facility], [place] - MWN (FAVIAN) - MWN ICUREFLAN ESPINALDate of Service 02/11/2020 08:12HPI/Events o f Note eICU Progress [id number] admitted for AECOPD and sepsis attributed to a suspected bacterial pneum onia. History obtained primarily from review of EMR.Camera exam: Laying in bed. Vitals monitor review ed.Vitals: reviewedLabs: reviewedRadiology: reviewedMeds: reviewedeICU Impression and Recommendations :COPD exacerbationSepsis given tachypnea and leukocytosis in the setting of suspected pneumonia, albe it some leukocytosis may be explained by administration of corticosteroids- NIPPV PRN for work of fransisca athing- continue scheduled bronchodilators, 40mg oral prednisone daily for a total course of 5 days- continue [id number] sliding scale while inpatient. Recommended blood glucos e level range [id number] and GI prophylaxis as appropriate.Thank you for allowing us to participate i n the care of this patient.The above note transcribed with the assistance of dictation software. Plea se excuse any errors.Interventions Major-Sepsis - evaluation and management
[2020-02-11] MEDS: Nystatin Topical Powder 15 GM Bottle TOP SCH ×2 (08:18→20:43)
[2020-02-11] MEDS: Gabapentin 300 MG Cap PO SCH ×4 (08:27→20:31)
[2020-02-11] MEDS: Citalopram 20 MG Tab PO SCH (08:27)
[2020-02-11] MEDS: Acetaminophen/HYDROcodone 325-10 MG Tab PO PRN ×2 (08:28→16:47)
[2020-02-11] MEDS: Furosemide 40 MG Tab PO SCH (08:29)
[2020-02-11] MEDS: Clopidogrel 75 MG Tab PO SCH (08:29)
[2020-02-11] MEDS: Aspirin 81 MG Tab.EC PO SCH (08:29)
[2020-02-11] MEDS: Spironolactone 25 MG Tab PO SCH (08:29)
[2020-02-11] MEDS: Metoprolol Tartrate 50 MG Tab PO SCH ×2 (08:29→20:31)
[2020-02-11] MEDS: predniSONE 20 MG Tab PO SCH (08:29)
[2020-02-11] MEDS: Insulin Glargine,Human Rec. Analog 100 Units/ML 3 ML Pen SUBCUT SCH ×2 (08:36→20:41)
--- NOTE | 2020-02-11 09:20 | PCM.PN ---
- General Info Date of Service: 02/11/20 Subjective Update: Reports no complaints overnight. Tolerating oral diet well. Currently on 3L nasal cannula. Denies fevers, chills, chest pain, nausea or vomiting. - Patient Data Vitals - Most Recent: Last Vital Signs Temp 96.8 F L 02/11/20 08:00 Pulse 98 02/11/20 08:29 Resp 21 H 02/11/20 08:00 BP 125/60 02/11/20 08:29 Pulse Ox 99 02/11/20 08:00 Weight - Most Recent: 237 lb 3.2 oz I&O - Last 24 Hours: Intake & Output 02/10/20 02/11/20 02/11/20 22:59 06:59 14:59 Intake Total 1000 1050 Output Total 1675 500 Balance -675 550 Lab Results Last 24 Hours: Laboratory Results - last 24 hr 02/10/20 02/10/20 02/10/20 Range/Units 11:17 13:14 17:01 WBC (4.0-11.0) K/uL RBC (4.50-5.90) M/uL Hgb (13.0-17.0) g/dL Hct (38.0-50.0) % MCV (80.0-98.0) fL MCH (27.0-32.0) pg MCHC (31.0-37.0) g/dL RDW Std Deviation (28.0-62.0) fl RDW Coeff of Rocco (11.0-15.0) % Plt Count (150-400) K/uL MPV (7.40-12.00) fL Neut % (Auto) (48.0-80.0) % Lymph % (Auto) (16.0-40.0) % [place] % (Auto) (0.0-15.0) % Eos % (Auto) (0.0-7.0) % Baso % (Auto) (0.0-1.5) % Neut # (Auto) (1.4-5.7) K/uL Lymph # (Auto) (0.6-2.4) K/uL [place] # (Auto) (0.0-0.8) K/uL Eos # (Auto) (0.0-0.7) K/uL Baso # (Auto) (0.0-0.1) K/uL Nucleated RBC % /100WBC Nucleated RBCs # K/uL Sodium (136-148) mmol/L Potassium (3.5-5.1) mmol/L Chloride (98-107) mmol/L Carbon Dioxide (21.0-32.0) mmol/L BUN (7.0-18.0) mg/dL Creatinine (0.8-1.3) mg/dL Est Cr Clr Drug Dosing mL/min Estimated GFR (MDRD) ml/min Glucose (74-106) mg/dL POC Glucose 419 H 401 H 173 H (60-110) mg/dL Calcium (8.5-10.1) mg/dL Total Bilirubin (0.2-1.0) mg/dL AST (15-37) IU/L ALT (14-63) IU/L Alkaline Phosphatase (46-116) U/L Total Protein (6.4-8.2) g/dL Albumin (3.4-5.0) g/dL Globulin (2.6-4.0) g/dL Albumin/Globulin Ratio (0.9-1.6) 02/10/20 02/11/20 02/11/20 Range/Units 21:35 00:22 02:13 WBC (4.0-11.0) K/uL RBC (4.50-5.90) M/uL Hgb (13.0-17.0) g/dL Hct (38.0-50.0) % MCV (80.0-98.0) fL MCH (27.0-32.0) pg MCHC (31.0-37.0) g/dL RDW Std Deviation (28.0-62.0) fl RDW Coeff of Rocco (11.0-15.0) % Plt Count (150-400) K/uL MPV (7.40-12.00) fL Neut % (Auto) (48.0-80.0) % Lymph % (Auto) (16.0-40.0) % [place] % (Auto) (0.0-15.0) % Eos % (Auto) (0.0-7.0) % Baso % (Auto) (0.0-1.5) % Neut # (Auto) (1.4-5.7) K/uL Lymph # (Auto) (0.6-2.4) K/uL [place] # (Auto) (0.0-0.8) K/uL Eos # (Auto) (0.0-0.7) K/uL Baso # (Auto) (0.0-0.1) K/uL Nucleated RBC % /100WBC Nucleated RBCs # K/uL Sodium (136-148) mmol/L Potassium (3.5-5.1) mmol/L Chloride (98-107) mmol/L Carbon Dioxide (21.0-32.0) mmol/L BUN (7.0-18.0) mg/dL Creatinine (0.8-1.3) mg/dL Est Cr Clr Drug Dosing mL/min Estimated GFR (MDRD) ml/min Glucose (74-106) mg/dL POC Glucose 349 H 281 H 236 H (60-110) mg/dL Calcium (8.5-10.1) mg/dL Total Bilirubin (0.2-1.0) mg/dL AST (15-37) IU/L ALT (14-63) IU/L Alkaline Phosphatase (46-116) U/L Total Protein (6.4-8.2) g/dL Albumin (3.4-5.0) g/dL Globulin (2.6-4.0) g/dL Albumin/Globulin Ratio (0.9-1.6) 02/11/20 02/11/20 02/11/20 Range/Units 06:10 06:10 06:10 WBC 16.25 H (4.0-11.0) K/uL RBC 3.96 L (4.50-5.90) M/uL Hgb 11.6 L (13.0-17.0) g/dL Hct 37.3 L (38.0-50.0) % MCV 94.2 (80.0-98.0) fL MCH 29.3 (27.0-32.0) pg MCHC 31.1 (31.0-37.0) g/dL RDW Std Deviation 50.1 (28.0-62.0) fl RDW Coeff of Rocco 15 (11.0-15.0) % Plt Count 182 (150-400) K/uL MPV 10.30 (7.40-12.00) fL Neut % (Auto) 86.1 H (48.0-80.0) % Lymph % (Auto) 9.6 L (16.0-40.0) % [place] % (Auto) 4.3 (0.0-15.0) % Eos % (Auto) 0.0 (0.0-7.0) % Baso % (Auto) 0.0 (0.0-1.5) % Neut # (Auto) 14.0 H (1.4-5.7) K/uL Lymph # (Auto) 1.6 (0.6-2.4) K/uL [place] # (Auto) 0.7 (0.0-0.8) K/uL Eos # (Auto) 0.0 (0.0-0.7) K/uL Baso # (Auto) 0.0 (0.0-0.1) K/uL Nucleated RBC % 0.0 /100WBC Nucleated RBCs # 0 K/uL Sodium 138 (136-148) mmol/L Potassium 4.8 (3.5-5.1) mmol/L Chloride 100 (98-107) mmol/L Carbon Dioxide 33.6 H (21.0-32.0) mmol/L BUN 37 H (7.0-18.0) mg/dL Creatinine 1.0 (0.8-1.3) mg/dL Est Cr Clr Drug Dosing 64.84 mL/min Estimated GFR (MDRD) > 60.0 ml/min Glucose 214 H (74-106) mg/dL POC Glucose 214 H (60-110) mg/dL Calcium 8.7 (8.5-10.1) mg/dL Total Bilirubin 0.3 (0.2-1.0) mg/dL AST 13 L (15-37) IU/L ALT 26 (14-63) IU/L Alkaline Phosphatase 59 (46-116) U/L Total Protein 5.7 L (6.4-8.2) g/dL Albumin 2.4 L (3.4-5.0) g/dL Globulin 3.3 (2.6-4.0) g/dL Albumin/Globulin Ratio 0.7 L (0.9-1.6) 02/11/20 Range/Units 07:46 WBC (4.0-11.0) K/uL RBC (4.50-5.90) M/uL Hgb (13.0-17.0) g/dL Hct (38.0-50.0) % MCV (80.0-98.0) fL MCH (27.0-32.0) pg MCHC (31.0-37.0) g/dL RDW Std Deviation (28.0-62.0) fl RDW Coeff of Rocco (11.0-15.0) % Plt Count (150-400) K/uL MPV (7.40-12.00) fL Neut % (Auto) (48.0-80.0) % Lymph % (Auto) (16.0-40.0) % [place] % (Auto) (0.0-15.0) % Eos % (Auto) (0.0-7.0) % Baso % (Auto) (0.0-1.5) % Neut # (Auto) (1.4-5.7) K/uL Lymph # (Auto) (0.6-2.4) K/uL [place] # (Auto) (0.0-0.8) K/uL Eos # (Auto) (0.0-0.7) K/uL Baso # (Auto) (0.0-0.1) K/uL Nucleated RBC % /100WBC Nucleated RBCs # K/uL Sodium (136-148) mmol/L Potassium (3.5-5.1) mmol/L Chloride (98-107) mmol/L Carbon Dioxide (21.0-32.0) mmol/L BUN (7.0-18.0) mg/dL Creatinine (0.8-1.3) mg/dL Est Cr Clr Drug Dosing mL/min Estimated GFR (MDRD) ml/min Glucose (74-106) mg/dL POC Glucose 221 H (60-110) mg/dL Calcium (8.5-10.1) mg/dL Total Bilirubin (0.2-1.0) mg/dL AST (15-37) IU/L ALT (14-63) IU/L Alkaline Phosphatase (46-116) U/L Total Protein (6.4-8.2) g/dL Albumin (3.4-5.0) g/dL Globulin (2.6-4.0) g/dL Albumin/Globulin Ratio (0.9-1.6) Jason Results Last 24 Hours: Microbiology 02/09/20 14:48 Aerobic Blood Culture - Preliminary Blood - Venous - Lab Draw NO GROWTH AFTER 1 DAY Anaerobic Blood Culture - Preliminary NO GROWTH AFTER 1 DAY 02/09/20 11:35 Aerobic Blood Culture - Preliminary Blood - Venous NO GROWTH AFTER 1 DAY Anaerobic Blood Culture - Preliminary NO GROWTH AFTER 1 DAY Med Orders - Current: Current Medications Acetaminophen (Tylenol) 650 mg PO Q4H PRN PRN Reason: Pain (Mild 1-3)/fever Hydrocodone Bitart/Acetaminophen ([place] 325-10 Mg) 1 tab PO TID PRN PRN Reason: PAIN Last Admin: 02/11/20 08:28 Dose: 1 tab Albuterol/Ipratropium (Duoneb 3.0-0.5 Mg/3 Ml) 3 ml NEB Q4HRRT [facility] Last Admin: 02/11/20 05:39 Dose: 3 ml Aspirin (Halfprin) 81 mg PO DAILY [facility] Last Admin: 02/11/20 08:29 Dose: 81 mg Citalopram Hydrobromide (Celexa) 10 mg PO DAILY [facility] Last Admin: 02/11/20 08:27 Dose: 10 mg Clopidogrel Bisulfate (Plavix) 75 mg PO DAILY [facility] Last Admin: 02/11/20 08:29 Dose: 75 mg Furosemide (Lasix) 40 mg PO DAILY [facility] Last Admin: 02/11/20 08:29 Dose: 40 mg Gabapentin (Neurontin) 300 mg PO BID@1200,1800 [facility] Last Admin: 02/10/20 18:07 Dose: 300 mg Gabapentin (Neurontin) 600 mg PO BID [facility] Last Admin: 02/11/20 08:27 Dose: 600 mg Heparin Sodium (Porcine) (Heparin Sodium) 5,000 units SUBCUT Q8H [facility] Last Admin: 02/11/20 06:37 Dose: 5,000 units Levofloxacin/Dextrose 750 mg/ (Premix) 150 mls @ 100 mls/hr IV Q24H [facility] Last Admin: 02/10/20 17:07 Dose: 100 mls/hr Insulin Aspart (Novolog) 0 unit SUBCUT ACBED [facility]; Protocol Last Admin: 02/11/20 08:17 Dose: 6 units Insulin Glargine (Lantus Solostar) 28 units SUBCUT BID [facility] Last Admin: 02/11/20 08:36 Dose: 28 units Metoprolol Tartrate (Lopressor) 50 mg PO BID [facility] Last Admin: 02/11/20 08:29 Dose: 50 mg Nystatin (Nystop) 0 gm TOP BID [facility] Last Admin: 02/11/20 08:18 Dose: 1 applic Ondansetron HCl (Zofran Odt) 4 mg PO Q4H PRN PRN Reason: nausea, able to take PO Ondansetron HCl (Zofran) 4 mg IVPUSH Q4H PRN PRN Reason: Nausea Pantoprazole Sodium (Protonix) 40 mg PO ACBREAKFAST [facility] Last Admin: 02/11/20 06:38 Dose: 40 mg Diclofenac Sodium 4 (Gm) 4 each TOP QID PRN PRN Reason: pain and inflammation Prednisone (Prednisone) 40 mg PO WITHBREAKFAST [facility] Last Admin: 02/11/20 08:29 Dose: 40 mg Rosuvastatin Calcium (Crestor) 40 mg PO BEDTIME [facility] Last Admin: 02/10/20 21:31 Dose: 40 mg Sodium Chloride (Saline Flush) 10 ml FLUSH ASDIRECTED PRN PRN Reason: Keep Vein Open Sodium Chloride (Saline Flush) 2.5 ml FLUSH ASDIRECTED PRN PRN Reason: Keep Vein Open Spironolactone (Aldactone) 50 mg PO DAILY [facility] Last Admin: 02/11/20 08:29 Dose: 50 mg Discontinued Medications Albuterol (Proventil Neb Soln) 7.5 mg NEB ONETIME ONE Stop: 02/09/20 11:26 Last Admin: 02/09/20 11:39 Dose: 7.5 mg Albuterol (Proventil Neb Soln) Confirm Administered Dose 2.5 mg .ROUTE .STK-MED ONE Stop: 02/09/20 11:27 Last Admin: 02/09/20 11:39 Dose: Not Given Heparin Sodium (Porcine) (Heparin Sodium) 5,000 units SUBCUT Q8H [facility] Piperacillin Sod/Tazobactam (Sod 4.5 gm/ Sodium Chloride) 100 mls @ 100 mls/hr IV Q6H [facility] Last Admin: 02/09/20 17:34 Dose: Not Given Sodium Chloride (Normal Saline) 1,000 mls @ 75 mls/hr IV STAT ONE Stop: 02/10/20 04:01 Last Admin: 02/09/20 15:22 Dose: 75 mls/hr Vancomycin HCl 1.5 gm/ Premix 300 mls @ 200 mls/hr IV Q12H [facility] Magnesium Sulfate 2 gm/ Premix 50 mls @ 50 mls/hr IV ONETIME ONE Stop: 02/09/20 16:21 Last Admin: 02/09/20 15:50 Dose: 50 mls/hr Insulin Aspart (Novolog) 0 unit SUBCUT TIDAC [facility]; Protocol Last Admin: 02/10/20 18:05 Dose: 3 units Insulin Aspart (Novolog) 10 unit SUBCUT NOW STA Stop: 02/10/20 13:49 Last Admin: 02/10/20 13:48 Dose: 10 units Insulin Aspart (Novolog) 15 unit SUBCUT ONETIME ONE Stop: 02/11/20 00:13 Last Admin: 02/11/20 00:24 Dose: 15 units Insulin Human Regular (Novolin R) 10 unit IVPUSH ONETIME ONE Stop: 02/10/20 13:49 Last Admin: 02/10/20 14:34 Dose: 10 units Methylprednisolone Sodium Succinate (Solu-Medrol) 125 mg IVPUSH ONETIME ONE Stop: 02/09/20 11:28 Last Admin: 02/09/20 11:43 Dose: 125 mg Methylprednisolone Sodium Succinate (Solu-Medrol) 60 mg IVPUSH Q12H [facility] Last Admin: 02/09/20 17:36 Dose: Not Given Methylprednisolone Sodium Succinate (Solu-Medrol) 60 mg IVPUSH Q12H [facility] Last Admin: 02/10/20 11:00 Dose: 60 mg Vancomycin HCl (Pharmacy To Dose - Vancomycin) 1 dose .XX ASDIRECTED [facility] - Exam General: Alert, Oriented, Cooperative, No Acute Distress Lungs: Other (mild scattered wheezes, normal respiratory effort) Cardiovascular: Regular Rate, Regular Rhythm GI/Abdominal Exam: Normal Bowel Sounds, Soft, Non-Tender, No Distention Extremities: Normal Inspection, No Pedal Edema Sepsis Event Note - Evaluation Sepsis Screening Result: Sepsis Risk - Focused Exam Vital Signs: Vital Signs Temp Pulse Pulse Resp BP BP Pulse Ox 02/11/20 08:29 98 125/60 02/11/20 08:00 96.8 F L 21 H 128/64 99 02/11/20 07:00 89 17 119/62 97 02/11/20 06:00 17 114/58 L 97 02/11/20 05:00 15 111/55 L 98 02/11/20 04:00 97.7 F 17 106/53 L 98 02/11/20 03:00 18 110/65 98 02/11/20 02:00 17 119/62 97 02/11/20 01:00 20 110/62 97 02/11/20 00:00 97.7 F 20 118/63 96 02/10/20 23:00 24 H 113/66 97 02/10/20 22:00 22 H 121/62 96 02/10/20 21:32 101 H 110/63 Date Exam was Performed: 02/11/20 Time Exam was Performed: 11:46 - Problem List Review Problem List Initiated/Reviewed/Updated: Yes - My Orders Last 24 Hours: My Active Orders 02/10/20 09:00 Aspirin [Halfprin] 81 mg PO DAILY Citalopram [Celexa] 10 mg PO DAILY Clopidogrel [Plavix] 75 mg PO DAILY Furosemide [Lasix] 40 mg PO DAILY Spironolactone [Aldactone] 50 mg PO DAILY 02/10/20 11:02 Consult to Physical Therapy [PT Evaluation and Treatment] [CONS] Routine 02/11/20 08:00 predniSONE 40 mg PO WITHBREAKFAST - Plan Plan:: Assessment and Plan: 1. Acute on chronic hypoxic hypercarbic respiratory failure secondary to COPD exacerbation vs community acquired pneumonia: - Patient currently on 3 L NC. He uses 2.5-3L at baseline at home. Change to DuoNebs q6h and continue prednisone 40 mg qd. Continue IV levaquin. Blood cultures negative. Downgrade patient to med/surg. 2. Leukocytosis secondary to recent steroids vs CAP. 3. Diabetes mellitus type 2: - ADA diet. SSI. Accucheks TIDAC. Patient currently on lantus 28 units BID and high-dose SSI. 4. Past medical history of PA s/p stent, HTN, Hyperlipidemia, CHF, anxiety and ASHUTOSH: - Resume home medications. 5. DVT prophylaxis: heparin.
[2020-02-11] MEDS: Levofloxacin/Dextrose 5%-Water 750 MG in Premix Bag 1 BAG IV SCH (15:30)
[2020-02-11] MEDS: Rosuvastatin 10 MG Tab PO SCH (20:30)
[2020-02-12] MEDS: Acetaminophen/HYDROcodone 325-10 MG Tab PO PRN ×2 (00:50→08:44)
[2020-02-12] MEDS: Albuterol/Ipratropium 3.0-0.5 MG/3 ML Neb Soln NEB SCH ×2 (06:25→12:31)
[2020-02-12 07:08] LABS: BLOOD UREA NITROGEN,BUN 32 mg/dL (7.0-18.0); CARBON DIOXIDE,CO2 34.7 mmol/L (21.0-32.0); CHLORIDE,CL 99 mmol/L (98-107); GLUCOSE RANDOM 137 mg/dL (74-106); POTASSIUM,K 4.5 mmol/L (3.5-5.1); SODIUM,NA 139 mmol/L (136-148)
[2020-02-12] MEDS: Heparin Sodium 5,000 Units/ML Vial SUBCUT SCH ×2 (07:30→14:55)
[2020-02-12] MEDS: Pantoprazole 40 MG Tab.CR PO SCH (07:32)
[2020-02-12] MEDS: predniSONE 20 MG Tab PO SCH (07:32)
[2020-02-12] MEDS: Insulin Aspart 100 Units/ML 3 ML Pen SUBCUT SCH ×2 (07:36→11:29)
[2020-02-12] MEDS: Citalopram 20 MG Tab PO SCH (08:41)
[2020-02-12] MEDS: Clopidogrel 75 MG Tab PO SCH (08:42)
[2020-02-12] MEDS: Spironolactone 25 MG Tab PO SCH (08:42)
[2020-02-12] MEDS: Aspirin 81 MG Tab.EC PO SCH (08:42)
[2020-02-12] MEDS: Furosemide 40 MG Tab PO SCH (08:42)
[2020-02-12] MEDS: Metoprolol Tartrate 50 MG Tab PO SCH (08:43)
[2020-02-12] MEDS: Gabapentin 300 MG Cap PO SCH ×2 (08:44→11:56)
[2020-02-12] MEDS: Nystatin Topical Powder 15 GM Bottle TOP SCH (08:49)
[2020-02-12] MEDS: Insulin Glargine,Human Rec. Analog 100 Units/ML 3 ML Pen SUBCUT SCH (08:49)
--- NOTE | 2020-02-12 15:18 | PCM.DCSUM1 ---
Addendum entered and electronically signed by Shade Stuart MD 02/14/20 11: 11: Discharge Summary - Hospital Course Free Text/Narrative:: Resume home health. - Discharge Data Discharge Date: 02/12/20 Discharge Disposition: Home, Self-Care 01 Condition: Stable - Referral to Home Health Primary Care Physician: [facility] - Patient Summary/Data Consults: Consultations 02/10/20 11:02 Consult to Physical Therapy [PT Evaluation and Treatment] [CONS] Routine - Patient Instructions Diet: Heart Healthy Diet, Diabetic Diet Activity: As Tolerated Notify Provider of: Fever, Increased Pain, Swelling and Redness, Drainage, Nausea and/or Vomiting - Discharge Plan *PRESCRIPTION DRUG MONITORING PROGRAM REVIEWED*: Not Applicable *COPY OF PRESCRIPTION DRUG MONITORING REPORT IN PATIENT MARK: Not Applicable Prescriptions/Med Rec: Levofloxacin [Levaquin] 750 mg PO DAILY 5 Days #5 tablet predniSONE [Prednisone] 10 mg PO DAILY 12 Days #28 tablet Home Medications: Home Meds Albuterol Sulfate [Albuterol Sulfate Hfa] 2 inh IH Q6H PRN 10/13/19 [History] Albuterol/Ipratropium [DuoNeb 3.0-0.5 MG/3 ML] 3 ml NEB Q6H 10/13/19 [History] Aspirin [Ecotrin EC] 81 mg PO DAILY 10/13/19 [History] Budesonide/Formoterol Fumarate [Symbicort 160-4.5 Mcg Inhaler] 2 inh IH Q12H [History] Citalopram [Citalopram HBr] 10 mg PO DAILY 10/13/19 [History] Clopidogrel [Plavix] 75 mg PO DAILY 10/13/19 [History] Diclofenac Sodium [Voltaren 1% Gel] 4 gm TOP QID PRN MDD total body dose 32gm max 10/13/19 [History] Hydrocodone/Acetaminophen [Marion 10-325 Tablet] 10 - 325 mg PO TID PRN 10/13/19 [History] Insulin Aspart [NovoLOG] 12 unit SUBCUT BID@,12 10/13/19 [History] Insulin Aspart [NovoLOG] 15 unit SUBCUT WITHDINNER 10/13/19 [History] Insulin Glarg,Human.Rec.Analog [Lantus Solostar] 28 unit SUBCUT BID 10/13/19 [ History] Lidocaine 5% [Lidoderm 5%] 2 patch TD .ON 12 HR, OFF 12 HR 10/13/19 [History] Metoprolol Tartrate 50 mg PO BID 10/13/19 [History] [place]-3/DHA/Epa/Fish Oil [Fish Oil 1,000 mg Softgel] 1,000 mg PO BID 10/13/19 [ History] Pantoprazole [ProTONIX] 40 mg PO ACBREAKFAST 10/13/19 [History] Rosuvastatin Calcium [Crestor] 40 mg PO BEDTIME 10/13/19 [History] Spironolactone [Aldactone] 50 mg PO DAILY 10/13/19 [History] metFORMIN HCl [Metformin HCl ER] 1,000 mg PO BID 10/13/19 [History] polyethylene glycoL 3350 [MiraLAX] 17 gm PO DAILY 10/13/19 [History] Furosemide 40 mg PO DAILY 12/30/19 [History] Gabapentin [Neurontin] 600 mg PO BID 12/30/19 [History] Alogliptin Benzoate [Alogliptin] 25 mg PO DAILY 01/27/20 [History] Meloxicam 15 mg PO WITHBREAKFAST 01/27/20 [History] Gabapentin [Neurontin] 300 mg PO 1200,1800 01/31/20 [History] Levofloxacin [Levaquin] 750 mg PO DAILY 5 Days #5 tablet 02/12/20 [Rx] predniSONE [Prednisone] 10 mg PO DAILY 12 Days #28 tablet 02/12/20 [Rx] Oxygen Therapy Mode: Nasal Cannula Oxygen Flow Rate (L/min): 2 Maintain SpO2% greater than: 88 Patient Handouts: Chronic Obstructive Pulmonary Disease Exacerbation, CPAP and BiPAP Information, Levofloxacin tablets, Prednisone tablets, Peripheral Edema Referrals: [facility] [Outside] Joel Jose MD [Resident] - (Please call [facility] on Friday to request a 'hospital follow up appointment' regarding this hospitalization. ) - Discharge Summary/Plan Comment DC Time >30 min.: No - Patient Data Vitals - Most Recent: Last Vital Signs Temp 97.1 F 02/12/20 11:32 Pulse 68 02/12/20 11:32 Resp 19 02/12/20 11:32 BP 129/64 02/12/20 11:32 Pulse Ox 95 02/12/20 14:00 Weight - Most Recent: 234 lb 5.622 oz CHARLENE Results - Last 24 hrs: Microbiology 02/09/20 14:48 Aerobic Blood Culture - Preliminary Blood - Venous - Lab Draw NO GROWTH AFTER 4 DAYS Anaerobic Blood Culture - Preliminary NO GROWTH AFTER 4 DAYS 02/09/20 11:35 Aerobic Blood Culture - Preliminary Blood - Venous NO GROWTH AFTER 4 DAYS Anaerobic Blood Culture - Preliminary NO GROWTH AFTER 4 DAYS Med Orders - Current: Current Medications Discontinued Medications Acetaminophen (Tylenol) 650 mg PO Q4H PRN PRN Reason: Pain (Mild 1-3)/fever Last Admin: 02/11/20 14:09 Dose: 650 mg Hydrocodone Bitart/Acetaminophen (Marion 325-10 Mg) 1 tab PO TID PRN PRN Reason: PAIN Last Admin: 02/12/20 08:44 Dose: 1 tab Albuterol (Proventil Neb Soln) 7.5 mg NEB ONETIME ONE Stop: 02/09/20 11:26 Last Admin: 02/09/20 11:39 Dose: 7.5 mg Albuterol (Proventil Neb Soln) Confirm Administered Dose 2.5 mg .ROUTE .STK-MED ONE Stop: 02/09/20 11:27 Last Admin: 02/09/20 11:39 Dose: Not Given Albuterol/Ipratropium (Duoneb 3.0-0.5 Mg/3 Ml) 3 ml NEB Q4HRRT [facility] Last Admin: 02/11/20 09:18 Dose: 3 ml Albuterol/Ipratropium (Duoneb 3.0-0.5 Mg/3 Ml) 3 ml NEB Q6H [facility] Last Admin: 02/12/20 12:31 Dose: 3 ml Aspirin (Halfprin) 81 mg PO DAILY [facility] Last Admin: 02/12/20 08:42 Dose: 81 mg Citalopram Hydrobromide (Celexa) 10 mg PO DAILY [facility] Last Admin: 02/12/20 08:41 Dose: 10 mg Clopidogrel Bisulfate (Plavix) 75 mg PO DAILY [facility] Last Admin: 02/12/20 08:42 Dose: 75 mg Furosemide (Lasix) 40 mg PO DAILY [facility] Last Admin: 02/12/20 08:42 Dose: 40 mg Gabapentin (Neurontin) 300 mg PO BID@1200,1800 [facility] Last Admin: 02/12/20 11:56 Dose: 300 mg Gabapentin (Neurontin) 600 mg PO BID [facility] Last Admin: 02/12/20 08:44 Dose: 600 mg Heparin Sodium (Porcine) (Heparin Sodium) 5,000 units SUBCUT Q8H MAGEN Heparin Sodium (Porcine) (Heparin Sodium) 5,000 units SUBCUT Q8H [facility] Last Admin: 02/12/20 14:55 Dose: Not Given Piperacillin Sod/Tazobactam (Sod 4.5 gm/ Sodium Chloride) 100 mls @ 100 mls/hr IV Q6H [facility] Last Admin: 02/09/20 17:34 Dose: Not Given Sodium Chloride (Normal Saline) 1,000 mls @ 75 mls/hr IV STAT ONE Stop: 02/10/20 04:01 Last Admin: 02/09/20 15:22 Dose: 75 mls/hr Vancomycin HCl 1.5 gm/ Premix 300 mls @ 200 mls/hr IV Q12H MAGEN Levofloxacin/Dextrose 750 mg/ (Premix) 150 mls @ 100 mls/hr IV Q24H [facility] Last Admin: 02/11/20 15:30 Dose: 100 mls/hr Magnesium Sulfate 2 gm/ Premix 50 mls @ 50 mls/hr IV ONETIME ONE Stop: 02/09/20 16:21 Last Admin: 02/09/20 15:50 Dose: 50 mls/hr Insulin Aspart (Novolog) 0 unit SUBCUT TIDAC [facility]; Protocol Last Admin: 02/10/20 18:05 Dose: 3 units Insulin Aspart (Novolog) 10 unit SUBCUT NOW STA Stop: 02/10/20 13:49 Last Admin: 02/10/20 13:48 Dose: 10 units Insulin Aspart (Novolog) 15 unit SUBCUT ONETIME ONE Stop: 02/11/20 00:13 Last Admin: 02/11/20 00:24 Dose: 15 units Insulin Aspart (Novolog) 0 unit SUBCUT ACBED [facility]; Protocol Last Admin: 02/12/20 11:29 Dose: 9 units Insulin Glargine (Lantus Solostar) 28 units SUBCUT BID [facility] Last Admin: 02/12/20 08:49 Dose: 28 units Insulin Human Regular (Novolin R) 10 unit IVPUSH ONETIME ONE Stop: 02/10/20 13:49 Last Admin: 02/10/20 14:34 Dose: 10 units Methylprednisolone Sodium Succinate (Solu-Medrol) 125 mg IVPUSH ONETIME ONE Stop: 02/09/20 11:28 Last Admin: 02/09/20 11:43 Dose: 125 mg Methylprednisolone Sodium Succinate (Solu-Medrol) 60 mg IVPUSH Q12H [facility] Last Admin: 02/09/20 17:36 Dose: Not Given Methylprednisolone Sodium Succinate (Solu-Medrol) 60 mg IVPUSH Q12H [facility] Last Admin: 02/10/20 11:00 Dose: 60 mg Metoprolol Tartrate (Lopressor) 50 mg PO BID [facility] Last Admin: 02/12/20 08:43 Dose: 50 mg Nystatin (Nystop) 0 gm TOP BID [facility] Last Admin: 02/12/20 08:49 Dose: 1 applic Ondansetron HCl (Zofran Odt) 4 mg PO Q4H PRN PRN Reason: nausea, able to take PO Ondansetron HCl (Zofran) 4 mg IVPUSH Q4H PRN PRN Reason: Nausea Last Admin: 02/12/20 00:50 Dose: 4 mg Pantoprazole Sodium (Protonix) 40 mg PO ACBREAKFAST [facility] Last Admin: 02/12/20 07:32 Dose: 40 mg Diclofenac Sodium 4 (Gm) 4 each TOP QID PRN PRN Reason: pain and inflammation Prednisone (Prednisone) 40 mg PO WITHBREAKFAST [facility] Last Admin: 02/12/20 07:32 Dose: 40 mg Rosuvastatin Calcium (Crestor) 40 mg PO BEDTIME [facility] Last Admin: 02/11/20 20:30 Dose: 40 mg Sodium Chloride (Saline Flush) 10 ml FLUSH ASDIRECTED PRN PRN Reason: Keep Vein Open Sodium Chloride (Saline Flush) 2.5 ml FLUSH ASDIRECTED PRN PRN Reason: Keep Vein Open Spironolactone (Aldactone) 50 mg PO DAILY [facility] Last Admin: 02/12/20 08:42 Dose: 50 mg Vancomycin HCl (Pharmacy To Dose - Vancomycin) 1 dose .XX ASDIRECTED [facility] Original Note: Discharge Summary - Hospital Course Free Text/Narrative:: 79-year-old male admitted for acute on chronic hypoxic hypercarbic respiratory failure secondary to COPD exacerbation vs community acquired pneumonia. He has a PMH of ME s/p stents, HTN, heart failure, COPD, DM type 2 and ASHUTOSH. His home oxygen requirement at baseline is 2L. Patient was initially admitted to the ICU. He was treated with IV levaquin, duonebs, IV steroids and started on BiPAP. Blood cultures were negative. Patient was successfully weaned off of BiPAP and down to his baseline oxygen requirement. He did require BiPAP overnight which he reported helped him sleep overnight. He has a history of ASHUTOSH diagnosed by sleep study approximately 10 years ago, however, does not have a BiPAP machine at home. He currently has a sleep study scheduled, however, is not until May 2019. Patient has attempted to get an earlier sleep study date, however, has been unsuccessful. Since patient has history of recurrent admissions for hypercarbic respiratory failure likely secondary to untreated ASHUTOSH , a script for BiPAP was provided to patient. Patient discharged on levaquin and 12-day taper of prednisone. He was advised to follow-up with his PCP. - Discharge Data Discharge Date: 02/12/20 Discharge Disposition: Home, Self-Care 01 Condition: Stable - Referral to Home Health Primary Care Physician: [facility] - Patient Summary/Data Consults: Consultations 02/10/20 11:02 Consult to Physical Therapy [PT Evaluation and Treatment] [CONS] Routine - Patient Instructions Diet: Heart Healthy Diet, Diabetic Diet Activity: As Tolerated Notify Provider of: Fever, Increased Pain, Swelling and Redness, Drainage, Nausea and/or Vomiting - Discharge Plan *PRESCRIPTION DRUG MONITORING PROGRAM REVIEWED*: Not Applicable *COPY OF PRESCRIPTION DRUG MONITORING REPORT IN PATIENT MARK: Not Applicable Prescriptions/Med Rec: Levofloxacin [Levaquin] 750 mg PO DAILY 5 Days #5 tablet predniSONE [Prednisone] 10 mg PO DAILY 12 Days #28 tablet Home Medications: Home Meds Albuterol Sulfate [Albuterol Sulfate Hfa] 2 inh IH Q6H PRN 10/13/19 [History] Albuterol/Ipratropium [DuoNeb 3.0-0.5 MG/3 ML] 3 ml NEB Q6H 10/13/19 [History] Aspirin [Ecotrin EC] 81 mg PO DAILY 10/13/19 [History] Budesonide/Formoterol Fumarate [Symbicort 160-4.5 Mcg Inhaler] 2 inh IH Q12H [History] Citalopram [Citalopram HBr] 10 mg PO DAILY 10/13/19 [History] Clopidogrel [Plavix] 75 mg PO DAILY 10/13/19 [History] Diclofenac Sodium [Voltaren 1% Gel] 4 gm TOP QID PRN MDD total body dose 32gm max 10/13/19 [History] Hydrocodone/Acetaminophen [Marion 10-325 Tablet] 10 - 325 mg PO TID PRN 10/13/19 [History] Insulin Aspart [NovoLOG] 12 unit SUBCUT BID@08,12 10/13/19 [History] Insulin Aspart [NovoLOG] 15 unit SUBCUT WITHDINNER 10/13/19 [History] Insulin Glarg,Human.Rec.Analog [Lantus Solostar] 28 unit SUBCUT BID 10/13/19 [ History] Lidocaine 5% [Lidoderm 5%] 2 patch TD .ON 12 HR, OFF 12 HR 10/13/19 [History] Metoprolol Tartrate 50 mg PO BID 10/13/19 [History] [place]-3/DHA/Epa/Fish Oil [Fish Oil 1,000 mg Softgel] 1,000 mg PO BID 10/13/19 [ History] Pantoprazole [ProTONIX] 40 mg PO ACBREAKFAST 10/13/19 [History] Rosuvastatin Calcium [Crestor] 40 mg PO BEDTIME 10/13/19 [History] Spironolactone [Aldactone] 50 mg PO DAILY 10/13/19 [History] metFORMIN HCl [Metformin HCl ER] 1,000 mg PO BID 10/13/19 [History] polyethylene glycoL 3350 [MiraLAX] 17 gm PO DAILY 10/13/19 [History] Furosemide 40 mg PO DAILY 12/30/19 [History] Gabapentin [Neurontin] 600 mg PO BID 12/30/19 [History] Alogliptin Benzoate [Alogliptin] 25 mg PO DAILY 01/27/20 [History] Meloxicam 15 mg PO WITHBREAKFAST 01/27/20 [History] Gabapentin [Neurontin] 300 mg PO 1200,1800 01/31/20 [History] Levofloxacin [Levaquin] 750 mg PO DAILY 5 Days #5 tablet 02/12/20 [Rx] predniSONE [Prednisone] 10 mg PO DAILY 12 Days #28 tablet 02/12/20 [Rx] Oxygen Therapy Mode: Nasal Cannula Oxygen Flow Rate (L/min): 2 Maintain SpO2% greater than: 88 Patient Handouts: Chronic Obstructive Pulmonary Disease Exacerbation, CPAP and BiPAP Information, Levofloxacin tablets, Prednisone tablets, Peripheral Edema Referrals: [facility] [Outside] Joel Jose MD [Resident] - (Please call [facility] on Friday to request a 'hospital follow up appointment' regarding this hospitalization. ) - Discharge Summary/Plan Comment DC Time >30 min.: No - Patient Data Vitals - Most Recent: Last Vital Signs Temp 97.1 F 02/12/20 11:32 Pulse 68 02/12/20 11:32 Resp 19 02/12/20 11:32 BP 129/64 02/12/20 11:32 Pulse Ox 95 02/12/20 14:00 Weight - Most Recent: 234 lb 5.622 oz I&O - Last 24 hours: Intake & Output 02/12/20 02/12/20 02/12/20 06:59 14:59 22:59 Intake Total 1080 560 Output Total 1950 1500 Balance -870 -940 Lab Results - Last 24 hrs: Laboratory Results - last 24 hr 02/11/20 02/11/20 02/11/20 Range/Units 12:02 16:57 20:35 WBC (4.0-11.0) K/uL RBC (4.50-5.90) M/uL Hgb (13.0-17.0) g/dL Hct (38.0-50.0) % MCV (80.0-98.0) fL MCH (27.0-32.0) pg MCHC (31.0-37.0) g/dL RDW Std Deviation (28.0-62.0) fl RDW Coeff of Rocco (11.0-15.0) % Plt Count (150-400) K/uL MPV (7.40-12.00) fL Neut % (Auto) (48.0-80.0) % Lymph % (Auto) (16.0-40.0) % Nance % (Auto) (0.0-15.0) % Eos % (Auto) (0.0-7.0) % Baso % (Auto) (0.0-1.5) % Neut # (Auto) (1.4-5.7) K/uL Lymph # (Auto) (0.6-2.4) K/uL Nance # (Auto) (0.0-0.8) K/uL Eos # (Auto) (0.0-0.7) K/uL Baso # (Auto) (0.0-0.1) K/uL Nucleated RBC % /100WBC Nucleated RBCs # K/uL Sodium (136-148) mmol/L Potassium (3.5-5.1) mmol/L Chloride (98-107) mmol/L Carbon Dioxide (21.0-32.0) mmol/L BUN (7.0-18.0) mg/dL Creatinine (0.8-1.3) mg/dL Est Cr Clr Drug Dosing mL/min Estimated GFR (MDRD) ml/min Glucose (74-106) mg/dL POC Glucose 365 H 373 H 342 H (60-110) mg/dL Calcium (8.5-10.1) mg/dL Total Bilirubin (0.2-1.0) mg/dL AST (15-37) IU/L ALT (14-63) IU/L Alkaline Phosphatase (46-116) U/L Total Protein (6.4-8.2) g/dL Albumin (3.4-5.0) g/dL Globulin (2.6-4.0) g/dL Albumin/Globulin Ratio (0.9-1.6) 02/12/20 02/12/20 02/12/20 Range/Units 06:10 06:10 07:36 WBC 9.77 (4.0-11.0) K/uL RBC 4.08 L (4.50-5.90) M/uL Hgb 12.0 L (13.0-17.0) g/dL Hct 38.3 (38.0-50.0) % MCV 93.9 (80.0-98.0) fL MCH 29.4 (27.0-32.0) pg MCHC 31.3 (31.0-37.0) g/dL RDW Std Deviation 50.9 (28.0-62.0) fl RDW Coeff of Rocco 15 (11.0-15.0) % Plt Count 198 (150-400) K/uL MPV 10.20 (7.40-12.00) fL Neut % (Auto) 74.1 (48.0-80.0) % Lymph % (Auto) 18.5 (16.0-40.0) % Nance % (Auto) 7.1 (0.0-15.0) % Eos % (Auto) 0.2 (0.0-7.0) % Baso % (Auto) 0.1 (0.0-1.5) % Neut # (Auto) 7.2 H (1.4-5.7) K/uL Lymph # (Auto) 1.8 (0.6-2.4) K/uL Nance # (Auto) 0.7 (0.0-0.8) K/uL Eos # (Auto) 0.0 (0.0-0.7) K/uL Baso # (Auto) 0.0 (0.0-0.1) K/uL Nucleated RBC % 0.0 /100WBC Nucleated RBCs # 0 K/uL Sodium 139 (136-148) mmol/L Potassium 4.5 (3.5-5.1) mmol/L Chloride 99 (98-107) mmol/L Carbon Dioxide 34.7 H (21.0-32.0) mmol/L BUN 32 H (7.0-18.0) mg/dL Creatinine 1.0 (0.8-1.3) mg/dL Est Cr Clr Drug Dosing 64.84 mL/min Estimated GFR (MDRD) > 60.0 ml/min Glucose 137 H (74-106) mg/dL POC Glucose 141 H (60-110) mg/dL Calcium 8.8 (8.5-10.1) mg/dL Total Bilirubin 0.3 (0.2-1.0) mg/dL AST 11 L (15-37) IU/L ALT 25 (14-63) IU/L Alkaline Phosphatase 56 (46-116) U/L Total Protein 5.9 L (6.4-8.2) g/dL Albumin 2.6 L (3.4-5.0) g/dL Globulin 3.3 (2.6-4.0) g/dL Albumin/Globulin Ratio 0.8 L (0.9-1.6) CHARLENE Results - Last 24 hrs: Microbiology 02/09/20 14:48 Aerobic Blood Culture - Preliminary Blood - Venous - Lab Draw NO GROWTH AFTER 3 DAYS Anaerobic Blood Culture - Preliminary NO GROWTH AFTER 3 DAYS 02/09/20 11:35 Aerobic Blood Culture - Preliminary Blood - Venous NO GROWTH AFTER 3 DAYS Anaerobic Blood Culture - Preliminary NO GROWTH AFTER 3 DAYS Med Orders - Current: Current Medications Discontinued Medications Acetaminophen (Tylenol) 650 mg PO Q4H PRN PRN Reason: Pain (Mild 1-3)/fever Last Admin: 02/11/20 14:09 Dose: 650 mg Hydrocodone Bitart/Acetaminophen ([place] 325-10 Mg) 1 tab PO TID PRN PRN Reason: PAIN Last Admin: 02/12/20 08:44 Dose: 1 tab Albuterol (Proventil Neb Soln) 7.5 mg NEB ONETIME ONE Stop: 02/09/20 11:26 Last Admin: 02/09/20 11:39 Dose: 7.5 mg Albuterol (Proventil Neb Soln) Confirm Administered Dose 2.5 mg .ROUTE .STK-MED ONE Stop: 02/09/20 11:27 Last Admin: 02/09/20 11:39 Dose: Not Given Albuterol/Ipratropium (Duoneb 3.0-0.5 Mg/3 Ml) 3 ml NEB Q4HRRT [facility] Last Admin: 02/11/20 09:18 Dose: 3 ml Albuterol/Ipratropium (Duoneb 3.0-0.5 Mg/3 Ml) 3 ml NEB Q6H [facility] Last Admin: 02/12/20 12:31 Dose: 3 ml Aspirin (Halfprin) 81 mg PO DAILY [facility] Last Admin: 02/12/20 08:42 Dose: 81 mg Citalopram Hydrobromide (Celexa) 10 mg PO DAILY [facility] Last Admin: 02/12/20 08:41 Dose: 10 mg Clopidogrel Bisulfate (Plavix) 75 mg PO DAILY [facility] Last Admin: 02/12/20 08:42 Dose: 75 mg Furosemide (Lasix) 40 mg PO DAILY [facility] Last Admin: 02/12/20 08:42 Dose: 40 mg Gabapentin (Neurontin) 300 mg PO BID@1200,1800 [facility] Last Admin: 02/12/20 11:56 Dose: 300 mg Gabapentin (Neurontin) 600 mg PO BID [facility] Last Admin: 02/12/20 08:44 Dose: 600 mg Heparin Sodium (Porcine) (Heparin Sodium) 5,000 units SUBCUT Q8H MAGEN Heparin Sodium (Porcine) (Heparin Sodium) 5,000 units SUBCUT Q8H [facility] Last Admin: 02/12/20 14:55 Dose: Not Given Piperacillin Sod/Tazobactam (Sod 4.5 gm/ Sodium Chloride) 100 mls @ 100 mls/hr IV Q6H [facility] Last Admin: 02/09/20 17:34 Dose: Not Given Sodium Chloride (Normal Saline) 1,000 mls @ 75 mls/hr IV STAT ONE Stop: 02/10/20 04:01 Last Admin: 02/09/20 15:22 Dose: 75 mls/hr Vancomycin HCl 1.5 gm/ Premix 300 mls @ 200 mls/hr IV Q12H MAGEN Levofloxacin/Dextrose 750 mg/ (Premix) 150 mls @ 100 mls/hr IV Q24H [facility] Last Admin: 02/11/20 15:30 Dose: 100 mls/hr Magnesium Sulfate 2 gm/ Premix 50 mls @ 50 mls/hr IV ONETIME ONE Stop: 02/09/20 16:21 Last Admin: 02/09/20 15:50 Dose: 50 mls/hr Insulin Aspart (Novolog) 0 unit SUBCUT TIDAC [facility]; Protocol Last Admin: 02/10/20 18:05 Dose: 3 units Insulin Aspart (Novolog) 10 unit SUBCUT NOW STA Stop: 02/10/20 13:49 Last Admin: 02/10/20 13:48 Dose: 10 units Insulin Aspart (Novolog) 15 unit SUBCUT ONETIME ONE Stop: 02/11/20 00:13 Last Admin: 02/11/20 00:24 Dose: 15 units Insulin Aspart (Novolog) 0 unit SUBCUT ACBED [facility]; Protocol Last Admin: 02/12/20 11:29 Dose: 9 units Insulin Glargine (Lantus Solostar) 28 units SUBCUT BID [facility] Last Admin: 02/12/20 08:49 Dose: 28 units Insulin Human Regular (Novolin R) 10 unit IVPUSH ONETIME ONE Stop: 02/10/20 13:49 Last Admin: 02/10/20 14:34 Dose: 10 units Methylprednisolone Sodium Succinate (Solu-Medrol) 125 mg IVPUSH ONETIME ONE Stop: 02/09/20 11:28 Last Admin: 02/09/20 11:43 Dose: 125 mg Methylprednisolone Sodium Succinate (Solu-Medrol) 60 mg IVPUSH Q12H [facility] Last Admin: 02/09/20 17:36 Dose: Not Given Methylprednisolone Sodium Succinate (Solu-Medrol) 60 mg IVPUSH Q12H [facility] Last Admin: 02/10/20 11:00 Dose: 60 mg Metoprolol Tartrate (Lopressor) 50 mg PO BID [facility] Last Admin: 02/12/20 08:43 Dose: 50 mg Nystatin (Nystop) 0 gm TOP BID [facility] Last Admin: 02/12/20 08:49 Dose: 1 applic Ondansetron HCl (Zofran Odt) 4 mg PO Q4H PRN PRN Reason: nausea, able to take PO Ondansetron HCl (Zofran) 4 mg IVPUSH Q4H PRN PRN Reason: Nausea Last Admin: 02/12/20 00:50 Dose: 4 mg Pantoprazole Sodium (Protonix) 40 mg PO ACBREAKFAST [facility] Last Admin: 02/12/20 07:32 Dose: 40 mg Diclofenac Sodium 4 (Gm) 4 each TOP QID PRN PRN Reason: pain and inflammation Prednisone (Prednisone) 40 mg PO WITHBREAKFAST [facility] Last Admin: 02/12/20 07:32 Dose: 40 mg Rosuvastatin Calcium (Crestor) 40 mg PO BEDTIME [facility] Last Admin: 02/11/20 20:30 Dose: 40 mg Sodium Chloride (Saline Flush) 10 ml FLUSH ASDIRECTED PRN PRN Reason: Keep Vein Open Sodium Chloride (Saline Flush) 2.5 ml FLUSH ASDIRECTED PRN PRN Reason: Keep Vein Open Spironolactone (Aldactone) 50 mg PO DAILY [facility] Last Admin: 02/12/20 08:42 Dose: 50 mg Vancomycin HCl (Pharmacy To Dose - Vancomycin) 1 dose .XX ASDIRECTED [facility]
== END 2020-02-12 14:40 | disposition home or self-care (01) | DRG 871 ==
LOC: MW.ED 11:21 → MW.ICU 13:43 → MW.MS 02-11 14:02
PROVIDERS: ADMIT Internal Medicine; ATTEND Internal Medicine
DX: A41.9 Sepsis, unspecified organism (principal); J18.9 Pneumonia, unspecified organism; J96.21 Acute and chronic respiratory failure with hypoxia; J96.22 Acute and chronic respiratory failure with hypercapnia; J44.1 Chronic obstructive pulmonary disease with (acute) exacerbation; H54.7 Unspecified visual loss; J44.0 Chronic obstructive pulmonary disease with (acute) lower respiratory infection; H91.90 Unspecified hearing loss, unspecified ear; G47.33 Obstructive sleep apnea (adult) (pediatric); I25.10 Atherosclerotic heart disease of native coronary artery without angina pectoris; I11.0 Hypertensive heart disease with heart failure; I50.9 Heart failure, unspecified; E78.00 Pure hypercholesterolemia, unspecified; I25.2 Old myocardial infarction; Z95.5 Presence of coronary angioplasty implant and graft; K21.9 Gastro-esophageal reflux disease without esophagitis; E83.42 Hypomagnesemia; E78.5 Hyperlipidemia, unspecified; D72.829 Elevated white blood cell count, unspecified; G89.29 Other chronic pain; M54.9 Dorsalgia, unspecified; Z79.51 Long term (current) use of inhaled steroids; M19.90 Unspecified osteoarthritis, unspecified site; F32.9 Major depressive disorder, single episode, unspecified; F41.9 Anxiety disorder, unspecified; E11.9 Type 2 diabetes mellitus without complications; Z79.2 Long term (current) use of antibiotics; Z97.4 Presence of external hearing-aid; Z95.818 Presence of other cardiac implants and grafts; Z88.8 Allergy status to other drugs, medicaments and biological substances; Z91.041 Radiographic dye allergy status; Z79.02 Long term (current) use of antithrombotics/antiplatelets; Z79.82 Long term (current) use of aspirin; Z79.4 Long term (current) use of insulin; Z79.52 Long term (current) use of systemic steroids; Z79.899 Other long term (current) drug therapy
CPT/HCPCS: 36415; 36600; 71045; 80053; 82803; 82962; 83735; 84100; 84484; 85025; 87040; 87804 ×2; 93005; 94640; 94660; 96374; 99285; J2930; 83605; 84145; 97161-GP; 99283; A9270-GY; J1644; J1815-GY; J1956; J2405; J2920; J3475; J7030; J7620-GY

== ENCOUNTER 2020-02-29 20:52 | Observation (INO) | payer OTHER ==
[2020-02-29] MEDS ORDERED: Magnesium Sulfate/Water 2 GM in Premix Bag 1 BAG IV ONE (21:10)
[2020-02-29] MEDS ORDERED: Azithromycin 250 MG Tab PO ONE (21:11)
--- NOTE | 2020-02-29 21:16 | EDM.PDOC ---
ED HPI GENERAL MEDICAL PROBLEM - General Chief Complaint: Respiratory Problem Stated Complaint: EMS ARRIVAL - COPD Time Seen by Provider: 02/29/20 21:14 Source of Information: Reports: Patient History Limitations: Reports: No Limitations - History of Present Illness INITIAL COMMENTS - FREE TEXT/NARRATIVE: Patient 79-year-old male with past medical history of obesity, COPD, VT presenting with a chief complaint of shortness of breath. Patient states his been feeling increasingly short of breath for the past 2 or 3 days. Patient states he feels short of breath even when he walks around and is sitting down. Patient reports associated cough with some productive sputum. Cough is been worsening as well. Patient denies any fevers, chills, sore throat, body aches. Patient has no recent travels no sick contacts. Patient denies any chest pain with the symptoms. Patient does use supplemental oxygen at home is normally at 2 L but his daughter is increased to 3 L due to the increasing shortness of breath. Pmhx: Per HPI Pshx: None Family Hx: noncontributory Smoking history? Past smoker Etoh use? none Drug use? none In addition to that documented in the HPI above, the additional ROS was obtained : Constitutional: Denies fevers or chills Eyes: Denies vision changes ENMT: Denies sore throat CV: Denies chest pain Resp: Denies SOB GI: Denies vomiting or diarrhea : Denies painful urination MSK: Denies recent trauma Skin: Denies new rashes Neuro: Denies new numbness or tingling or weakness Endocrine: Denies unexpected weight loss Heme: Denies bleeding disorders I have reviewed the triage vital signs Const: Well nourished, well developed, appears stated age Eyes: PERRL, no conjunctival injection HENT: NCAT, Neck supple without meningismus CV: RRR, Warm, well-perfused extremities RESP: Increased respiratory rate tachypneic with full sentences. Minimal accessory muscle usage. GI: soft, non-tender, non-distended, no masses MSK: No gross deformities appreciated Skin: Warm, dry. No rashes Neuro: Alert, publication specialist II-XII grossly intact. Sensation and motor function of extremities grossly intact. Psych: Appropriate mood and affect Assessment and plan: Patient is 79-year-old male numerous medical comorbidities presenting with increased shortness of breath. Patient was breathing at a rate of 26-28 on arrival to the emergency department. Patient was saturating well with 2 L nasal cannula. Patient did not require BiPAP or intubation on my examination. Broad differential diagnosis was considered including COPD exacerbation, CHF exacerbation, ACS, viral pneumonia. No evidence of volume overload on physical exam and chest x-ray appears stable from prior. The patient's BNP is within normal limits therefore CHF exacerbation seems to be extremely low likelihood at this point. ACS, patient has no acute ischemic changes on EKG and symptomatology seems to be more concerning for COPD exacerbation. Patient's troponin was within normal limits. In addition, patient is not complaining of any chest pain. COPD exacerbation seems much more likely given the patient's clinical presentation and exam with lack of other findings on laboratory testing. Patient given steroids and magnesium with minimal improvement of symptoms. Nebulizers were deferred given concerns for possible coronavirus as part of the differential. Patient will be given metered-dose inhaler of albuterol to help with symptoms. Azithromycin was given empirically for COPD exacerbation and possible early pneumonia. Given patient's chronic medical history and numerous comorbidities with shortness of breath the patient will be placed under observation for further evaluation and work-up. In addition, he will need respiratory monitoring. Case discussed with Dr. Singh who agreed if accept the patient for observation. - Related Data Allergies Allergy/AdvReac Type Severity Reaction Status Date / Time atorvastatin Allergy Other Verified 02/29/20 20:56 bupropion [From Wellbutrin] Allergy Other Verified 02/29/20 20:56 duloxetine HCl Allergy Rash Verified 02/29/20 20:56 [From Cymbalta] Iodinated Contrast Media Allergy Other Verified 02/29/20 20:56 meloxicam Allergy Other Verified 02/29/20 20:56 naproxen Allergy Other Verified 02/29/20 20:56 paroxetine Allergy Other Verified 02/29/20 20:56 sertraline HCl [From Zoloft] Allergy Rash Verified 02/29/20 20:56 venlafaxine [From Effexor] Allergy oth Verified 02/29/20 20:56 Home Meds: Home Meds Albuterol Sulfate [Albuterol Sulfate Hfa] 2 inh IH Q6H PRN 10/13/19 [History] Albuterol/Ipratropium [DuoNeb 3.0-0.5 MG/3 ML] 3 ml NEB Q6H 10/13/19 [History] Aspirin [Ecotrin EC] 81 mg PO DAILY 10/13/19 [History] Budesonide/Formoterol Fumarate [Symbicort 160-4.5 Mcg Inhaler] 2 inh IH Q12H [History] Citalopram [Citalopram HBr] 10 mg PO DAILY 10/13/19 [History] Clopidogrel [Plavix] 75 mg PO DAILY 10/13/19 [History] Diclofenac Sodium [Voltaren 1% Gel] 4 gm TOP QID PRN MDD total body dose 32gm max 10/13/19 [History] Hydrocodone/Acetaminophen [[place] 10-325 Tablet] 10 - 325 mg PO TID PRN 10/13/19 [History] Insulin Aspart [NovoLOG] 12 unit SUBCUT BID@,12 10/13/19 [History] Insulin Aspart [NovoLOG] 15 unit SUBCUT WITHDINNER 10/13/19 [History] Insulin Glarg,Human.Rec.Analog [Lantus Solostar] 28 unit SUBCUT BID 10/13/19 [ History] Lidocaine 5% [Lidoderm 5%] 2 patch TD .ON 12 HR, OFF 12 HR 10/13/19 [History] Metoprolol Tartrate 50 mg PO BID 10/13/19 [History] [place]-3/DHA/Epa/Fish Oil [Fish Oil 1,000 mg Softgel] 1,000 mg PO BID 10/13/19 [ History] Pantoprazole [ProTONIX] 40 mg PO ACBREAKFAST 10/13/19 [History] Rosuvastatin Calcium [Crestor] 40 mg PO BEDTIME 10/13/19 [History] Spironolactone [Aldactone] 50 mg PO DAILY 10/13/19 [History] metFORMIN HCl [Metformin HCl ER] 1,000 mg PO BID 10/13/19 [History] polyethylene glycoL 3350 [MiraLAX] 17 gm PO DAILY 10/13/19 [History] Furosemide 40 mg PO DAILY 12/30/19 [History] Gabapentin [Neurontin] 600 mg PO BID 12/30/19 [History] Alogliptin Benzoate [Alogliptin] 25 mg PO DAILY 01/27/20 [History] Meloxicam 15 mg PO WITHBREAKFAST 01/27/20 [History] Gabapentin [Neurontin] 300 mg PO 1200,1800 01/31/20 [History] predniSONE [Prednisone] 10 mg PO DAILY 12 Days #28 tablet 02/12/20 [Rx] Past Medical History HEENT History: Reports: None Other HEENT History: glasses and hearing aides Cardiovascular History: Reports: CAD, Heart Failure, High Cholesterol, Hypertension, VT, Stents Respiratory History: Reports: Asthma, COPD Other Respiratory History: states may need cpap but does not have one. Gastrointestinal History: Reports: Diverticulosis, Gastritis, GERD Genitourinary History: Reports: None Musculoskeletal History: Reports: Arthritis, Back Pain, Chronic Neurological History: Reports: None Psychiatric History: Reports: Anxiety, Depression, Panic Attack, PTSD Endocrine/Metabolic History: Reports: Diabetes, Type II Insulin Pump Model and Credentialing Manager: None Hematologic History: Reports: None Immunologic History: Reports: None Oncologic (Cancer) History: Reports: None Dermatologic History: Reports: None - Infectious Disease History Infectious Disease History: Reports: None - Past Surgical History Head Surgeries/Procedures: Reports: None HEENT Surgical History: Reports: None Cardiovascular Surgical History: Reports: Other (See Below) Other Cardiovascular Surgeries/Procedures: Respiratory Surgical History: Reports: None Other Respiratory Surgeries/Procedures: on 2L/min @ home GI Surgical History: Reports: Colonoscopy Male Surgical History: Reports: None Endocrine Surgical History: Reports: None Neurological Surgical History: Reports: None Musculoskeletal Surgical History: Reports: None Oncologic Surgical History: Reports: None Dermatological Surgical History: Reports: None Social & Family History - Family History Family Medical History: Noncontributory - Tobacco Use Smoking Status *Q: Former Smoker Used Tobacco, but Quit: No - Caffeine Use Caffeine Use: Reports: Coffee Caffeine Use Comment: Rarely - Recreational Drug Use Recreational Drug Use: No ED ROS GENERAL - Review of Systems Review Of Systems: See Below ED EXAM, GENERAL - Physical Exam Exam: See Below Course - Vital Signs Last Recorded V/S: Last Vital Signs Temp 36.0 C L 02/29/20 21:21 Pulse 78 02/29/20 22:11 Resp 24 H 02/29/20 22:11 BP 145/64 H 02/29/20 22:11 Pulse Ox 96 02/29/20 22:11 - Orders/Labs/Meds Orders: Active Orders 24 hr Category Date Time Status Admission Status [Patient Status] [ADT] Stat ADT 02/29/20 22:13 Active CORONAVIRUS COVID-19 PCR PHL [MREF] Stat Lab 02/29/20 22:14 Ordered INFLUENZA A+B AG SCREEN [RM] Stat Lab 02/29/20 22:14 Ordered Isolation [COMM] Routine Oth 02/29/20 22:04 Active Labs: Laboratory Tests 02/29/20 02/29/20 02/29/20 Range/Units 21:13 21:13 21:13 WBC 12.31 H (4.0-11.0) K/uL RBC 4.09 L (4.50-5.90) M/uL Hgb 12.0 L (13.0-17.0) g/dL Hct 39.7 (38.0-50.0) % MCV 97.1 (80.0-98.0) fL MCH 29.3 (27.0-32.0) pg MCHC 30.2 L (31.0-37.0) g/dL RDW Std Deviation 53.9 (28.0-62.0) fl RDW Coeff of Rocco 15 (11.0-15.0) % Plt Count 161 (150-400) K/uL MPV 10.40 (7.40-12.00) fL Neut % (Auto) 77.6 (48.0-80.0) % Lymph % (Auto) 15.8 L (16.0-40.0) % [place] % (Auto) 5.8 (0.0-15.0) % Eos % (Auto) 0.7 (0.0-7.0) % Baso % (Auto) 0.1 (0.0-1.5) % Neut # (Auto) 9.6 H (1.4-5.7) K/uL Lymph # (Auto) 1.9 (0.6-2.4) K/uL [place] # (Auto) 0.7 (0.0-0.8) K/uL Eos # (Auto) 0.1 (0.0-0.7) K/uL Baso # (Auto) 0.0 (0.0-0.1) K/uL Nucleated RBC % 0.0 /100WBC Nucleated RBCs # 0 K/uL VBG pH (7.31-7.41) VBG pCO2 (35-45) mmHG VBG pO2 (30-40) mmHG VBG HCO3 (22-30) mEq/L VBG Total CO2 (41-51) mmol/L VBG Base Excess (-3.0-3.0) Sodium 138 (136-148) mmol/L Potassium 5.0 (3.5-5.1) mmol/L Chloride 100 (98-107) mmol/L Carbon Dioxide 33.9 H (21.0-32.0) mmol/L BUN 24 H (7.0-18.0) mg/dL Creatinine 1.0 (0.8-1.3) mg/dL Est Cr Clr Drug Dosing 62.86 mL/min Estimated GFR (MDRD) > 60.0 ml/min Glucose 247 H (74-106) mg/dL Calcium 8.8 (8.5-10.1) mg/dL Total Bilirubin 0.5 (0.2-1.0) mg/dL AST 15 (15-37) IU/L ALT 25 (14-63) IU/L Alkaline Phosphatase 71 (46-116) U/L Troponin I < 0.050 (0.000-0.056) ng/mL B-Natriuretic Peptide 23 (<100) PG/ML Total Protein 6.2 L (6.4-8.2) g/dL Albumin 2.7 L (3.4-5.0) g/dL Globulin 3.5 (2.6-4.0) g/dL Albumin/Globulin Ratio 0.8 L (0.9-1.6) 02/29/20 Range/Units 21:13 WBC (4.0-11.0) K/uL RBC (4.50-5.90) M/uL Hgb (13.0-17.0) g/dL Hct (38.0-50.0) % MCV (80.0-98.0) fL MCH (27.0-32.0) pg MCHC (31.0-37.0) g/dL RDW Std Deviation (28.0-62.0) fl RDW Coeff of Rocco (11.0-15.0) % Plt Count (150-400) K/uL MPV (7.40-12.00) fL Neut % (Auto) (48.0-80.0) % Lymph % (Auto) (16.0-40.0) % [place] % (Auto) (0.0-15.0) % Eos % (Auto) (0.0-7.0) % Baso % (Auto) (0.0-1.5) % Neut # (Auto) (1.4-5.7) K/uL Lymph # (Auto) (0.6-2.4) K/uL [place] # (Auto) (0.0-0.8) K/uL Eos # (Auto) (0.0-0.7) K/uL Baso # (Auto) (0.0-0.1) K/uL Nucleated RBC % /100WBC Nucleated RBCs # K/uL VBG pH 7.43 H (7.31-7.41) VBG pCO2 53 H (35-45) mmHG VBG pO2 57 H (30-40) mmHG VBG HCO3 35 H (22-30) mEq/L VBG Total CO2 31 L (41-51) mmol/L VBG Base Excess 8.7 H (-3.0-3.0) Sodium (136-148) mmol/L Potassium (3.5-5.1) mmol/L Chloride (98-107) mmol/L Carbon Dioxide (21.0-32.0) mmol/L BUN (7.0-18.0) mg/dL Creatinine (0.8-1.3) mg/dL Est Cr Clr Drug Dosing mL/min Estimated GFR (MDRD) ml/min Glucose (74-106) mg/dL Calcium (8.5-10.1) mg/dL Total Bilirubin (0.2-1.0) mg/dL AST (15-37) IU/L ALT (14-63) IU/L Alkaline Phosphatase (46-116) U/L Troponin I (0.000-0.056) ng/mL B-Natriuretic Peptide (<100) PG/ML Total Protein (6.4-8.2) g/dL Albumin (3.4-5.0) g/dL Globulin (2.6-4.0) g/dL Albumin/Globulin Ratio (0.9-1.6) Meds: Medications Discontinued Medications Generic Name Dose Route Start Last Admin Trade Name Freq PRN Reason Stop Dose Admin Hydrocodone Bitart/Acetaminophen 1 tab 02/29/20 22:00 02/29/20 22:07 [place] 325-10 Mg PO 02/29/20 22:01 1 tab ONETIME ONE Administration Azithromycin 500 mg 02/29/20 21:11 02/29/20 21:27 Zithromax PO 02/29/20 21:12 500 mg ONETIME ONE Administration Magnesium Sulfate 2 gm/ Premix 50 mls @ 50 mls/hr 02/29/20 21:10 02/29/20 21: 27 IV 02/29/20 22:09 50 mls/hr ONETIME ONE Administration Methylprednisolone Sodium Succinate 125 mg 02/29/20 21:30 02/29/20 21:30 Solu-Medrol IVPUSH 02/29/20 21:31 125 mg ONETIME ONE Administration Departure - Departure Time of Disposition: 22:21 Disposition: Refer to Observation Clinical Impression: COPD exacerbation - Discharge Information Referrals: PCP,None [Primary Care Provider] - Forms: ED Department Discharge Sepsis Event Note - Evaluation Sepsis Screening Result: No Definite Risk - Focused Exam Vital Signs: Vital Signs Temp Pulse Resp BP Pulse Ox 02/29/20 22:11 78 24 H 145/64 H 96 02/29/20 21:38 82 26 H 140/64 97 02/29/20 21:21 36.0 C L 82 26 H 136/66 98 02/29/20 20:55 37.6 C 86 28 H 125/56 L 99 Date Exam was Performed: 02/29/20 Time Exam was Performed: 22:16 - My Orders Last 24 Hours: My Active Orders 02/29/20 22:04 Isolation [COMM] Routine 02/29/20 22:13 Admission Status [Patient Status] [ADT] Stat 02/29/20 22:14 CORONAVIRUS COVID-19 PCR PHL [MREF] Stat INFLUENZA A+B AG SCREEN [RM] Stat - Assessment/Plan Last 24 Hours: My Active Orders 02/29/20 22:04 Isolation [COMM] Routine 02/29/20 22:13 Admission Status [Patient Status] [ADT] Stat 02/29/20 22:14 CORONAVIRUS COVID-19 PCR PHL [MREF] Stat INFLUENZA A+B AG SCREEN [RM] Stat
[2020-02-29] MEDS ORDERED: methylPREDNISolone Sodium Succinate 125 MG/2 ML SDV IVPUSH ONE (21:30)
--- NOTE | 2020-02-29 21:42 | CR ---
Chest: Portable view of the chest was obtained. Comparison: Prior chest x-ray of 02/09/20. Increased density within both sides chest, worse on the left side. Findings remain fairly stable from previous exam. No new parenchymal densities are seen. Heart size and mediastinum are also stable. Bony structures are unchanged. Impression: 1. Findings as noted above. 2. No significant change from previous chest x-ray of 02/09/20. Diagnostic code #2 Study was dictated in MDT
[2020-02-29 21:51] LABS: BLOOD UREA NITROGEN,BUN 24 mg/dL (7.0-18.0); CARBON DIOXIDE,CO2 33.9 mmol/L (21.0-32.0); CHLORIDE,CL 100 mmol/L (98-107); GLUCOSE RANDOM 247 mg/dL (74-106); SODIUM,NA 138 mmol/L (136-148)
[2020-02-29] MEDS ORDERED: Acetaminophen/HYDROcodone 325-10 MG Tab PO ONE (22:00)
[2020-02-29] MEDS ORDERED: Albuterol/Ipratropium 4 GM Inhalation Spray INH PRN (23:55)
[2020-03-01] MEDS ORDERED: cefTRIAXone 1 GM in Sodium Chloride 0.9% 50 ML IV SCH ×2
[2020-03-01] MEDS ORDERED: Sodium Chloride 0.9% 2.5 ML Syringe FLUSH PRN (00:06)
[2020-03-01] MEDS ORDERED: Sodium Chloride 0.9% 10 ML Syringe FLUSH PRN (00:06)
[2020-03-01] MEDS: Insulin Glargine,Human Rec. Analog 100 Units/ML 3 ML Pen SUBCUT SCH ×3 (00:46→20:34)
[2020-03-01 06:39] LABS: BLOOD UREA NITROGEN,BUN 28 mg/dL (7.0-18.0); CHLORIDE,CL 99 mmol/L (98-107); GLUCOSE RANDOM 313 mg/dL (74-106); POTASSIUM,K 5.5 mmol/L (3.5-5.1); SODIUM,NA 139 mmol/L (136-148)
[2020-03-01] MEDS: Insulin Aspart 100 Units/ML 3 ML Pen SUBCUT SCH ×3 (08:09→17:23)
--- NOTE | 2020-03-01 09:09 | PCM.HP.2 ---
H&P History of Present Illness - General Date of Service: 03/01/20 Admit Problem/Dx: Admission Diagnosis/Problem Admission Diagnosis/Problem COPD with acute lower respiratory infection Source of Information: Patient History Limitations: Reports: No Limitations - History of Present Illness Initial Comments - Free Text/Narative: 79-year-old male presents with shortness of breath and cough for the past 2-3 days. He has a PMH of COPD on 2 L home oxygen at baseline, [place] s/p stents, CHF, HTN, ASHUTOSH and DM type 2. He reports that he has had to increase his home oxygen to 3 L for the past few days and his cough seems to be getting worse. No recent travel or any known sick contacts. He denies having any fevers, chills, blurry vision, chest pain, nausea, vomiting, diarrhea, abdominal pain, blood in urine, blood in stool, numbness or tingling in extremities. In the ER, EKG showed no acute ST changes, CXR showed increased density within both sides of chest stable for previous CXR on 02/09/20. WBC ~12,000, troponin normal, BNP 23, influenza swab negative and COVID19 swab sent for testing. Patient received IV magnesium, IV azithromycin and soumedrol in ER. Patient admitted for further evaluation and treatment. general Pain Score (Numeric/FACES): 2 - Related Data Allergies/Adverse Reactions: Allergies Allergy/AdvReac Type Severity Reaction Status Date / Time atorvastatin Allergy Other Verified 03/01/20 02:42 bupropion [From Wellbutrin] Allergy Other Verified 03/01/20 02:42 duloxetine HCl Allergy Rash Verified 03/01/20 02:42 [From Cymbalta] Iodinated Contrast Media Allergy Other Verified 03/01/20 02:42 meloxicam Allergy Other Verified 03/01/20 02:42 naproxen Allergy Other Verified 03/01/20 02:42 paroxetine Allergy Other Verified 03/01/20 02:42 sertraline HCl [From Zoloft] Allergy Rash Verified 03/01/20 02:42 venlafaxine [From Effexor] Allergy oth Verified 03/01/20 02:42 Home Medications: Home Meds Albuterol Sulfate [Albuterol Sulfate Hfa] 2 inh IH Q6H PRN 10/13/19 [History] Albuterol/Ipratropium [DuoNeb 3.0-0.5 MG/3 ML] 3 ml NEB Q6H 10/13/19 [History] Aspirin [Ecotrin EC] 81 mg PO DAILY 10/13/19 [History] Budesonide/Formoterol Fumarate [Symbicort 160-4.5 Mcg Inhaler] 2 inh IH Q12H [History] Citalopram [Citalopram HBr] 10 mg PO DAILY 10/13/19 [History] Clopidogrel [Plavix] 75 mg PO DAILY 10/13/19 [History] Diclofenac Sodium [Voltaren 1% Gel] 4 gm TOP QID PRN MDD total body dose 32gm max 10/13/19 [History] Hydrocodone/Acetaminophen [Presidio 10-325 Tablet] 10 - 325 mg PO TID PRN 10/13/19 [History] Insulin Aspart [NovoLOG] 12 unit SUBCUT BID@08,12 10/13/19 [History] Insulin Aspart [NovoLOG] 15 unit SUBCUT WITHDINNER 10/13/19 [History] Insulin Glarg,Human.Rec.Analog [Lantus Solostar] 28 unit SUBCUT BID 10/13/19 [ History] Lidocaine 5% [Lidoderm 5%] 2 patch TD .ON 12 HR, OFF 12 HR 10/13/19 [History] Metoprolol Tartrate 50 mg PO BID 10/13/19 [History] [place]-3/DHA/Epa/Fish Oil [Fish Oil 1,000 mg Softgel] 1,000 mg PO BID 10/13/19 [ History] Pantoprazole [ProTONIX] 40 mg PO ACBREAKFAST 10/13/19 [History] Rosuvastatin Calcium [Crestor] 40 mg PO BEDTIME 10/13/19 [History] Spironolactone [Aldactone] 50 mg PO DAILY 10/13/19 [History] metFORMIN HCl [Metformin HCl ER] 1,000 mg PO BID 10/13/19 [History] polyethylene glycoL 3350 [MiraLAX] 17 gm PO DAILY 10/13/19 [History] Furosemide 40 mg PO DAILY 12/30/19 [History] Gabapentin [Neurontin] 600 mg PO BID 12/30/19 [History] Alogliptin Benzoate [Alogliptin] 25 mg PO DAILY 01/27/20 [History] Meloxicam 15 mg PO WITHBREAKFAST 01/27/20 [History] Gabapentin [Neurontin] 300 mg PO 1200,1800 01/31/20 [History] predniSONE [Prednisone] 10 mg PO DAILY 12 Days #28 tablet 02/12/20 [Rx] Past Medical History HEENT History: Reports: None Other HEENT History: glasses and hearing aides Cardiovascular History: Reports: CAD, Heart Failure, High Cholesterol, Hypertension, [place], Stents Respiratory History: Reports: Asthma, COPD Other Respiratory History: states may need cpap but does not have one. Gastrointestinal History: Reports: Diverticulosis, Gastritis, GERD Genitourinary History: Reports: None Musculoskeletal History: Reports: Arthritis, Back Pain, Chronic Neurological History: Reports: None Psychiatric History: Reports: Anxiety, Depression, Panic Attack, PTSD Endocrine/Metabolic History: Reports: Diabetes, Type II Insulin Pump Model and Manager Professional Development: None Hematologic History: Reports: None Immunologic History: Reports: None Oncologic (Cancer) History: Reports: None Dermatologic History: Reports: None - Infectious Disease History Infectious Disease History: Reports: None - Past Surgical History Head Surgeries/Procedures: Reports: None HEENT Surgical History: Reports: None Cardiovascular Surgical History: Reports: Other (See Below) Other Cardiovascular Surgeries/Procedures: Respiratory Surgical History: Reports: None Other Respiratory Surgeries/Procedures: on 2L/min @ home GI Surgical History: Reports: Colonoscopy Male Surgical History: Reports: None Endocrine Surgical History: Reports: None Neurological Surgical History: Reports: None Musculoskeletal Surgical History: Reports: None Oncologic Surgical History: Reports: None Dermatological Surgical History: Reports: None Social & Family History - Family History Family Medical History: Noncontributory - Tobacco Use Smoking Status *Q: Former Smoker Used Tobacco, but Quit: Yes Month/Year Tobacco Last Used: 20 years ago - Caffeine Use Caffeine Use: Reports: Coffee Caffeine Use Comment: Rarely - Recreational Drug Use Recreational Drug Use: No H&P Review of Systems - Review of Systems: Review Of Systems: Comprehensive ROS is negative, except as noted in HPI. Exam - Exam Exam: See Below - Vital Signs Vital Signs: Last Vital Signs Temp 98.2 F 03/01/20 08:00 Pulse 67 03/01/20 03:26 Resp 20 03/01/20 08:00 BP 140/69 03/01/20 08:00 Pulse Ox 93 L 03/01/20 08:00 Weight: 239 lb 3.225 oz - Exam General: Alert, Oriented, Cooperative, Other (NAD) HEENT: Conjunctiva Clear, Hearing Intact, Pupils Equal Neck: Supple, Trachea Midline Lungs: Normal Respiratory Effort, Other (quiet breath sounds b/l, CTAB) Cardiovascular: Regular Rate, Regular Rhythm GI/Abdominal Exam: Normal Bowel Sounds, Soft, Non-Tender, No Distention Extremities: Normal Inspection, No Pedal Edema Peripheral Pulses: 2+: Radial (L), Radial (R) Skin: Warm, Dry, Intact Neurological: Cranial Nerves Intact, Strength Equal Bilateral, Normal Speech, Normal Tone Neuro Extensive - Mental Status: Alert, Oriented x3, Normal Mood/Affect Psychiatric: Alert, Normal Affect, Normal Mood - Patient Data Lab Results Last 24 hrs: Laboratory Results - last 24 hr 02/29/20 02/29/20 02/29/20 Range/Units 21:13 21:13 21:13 WBC 12.31 H (4.0-11.0) K/uL RBC 4.09 L (4.50-5.90) M/uL Hgb 12.0 L (13.0-17.0) g/dL Hct 39.7 (38.0-50.0) % MCV 97.1 (80.0-98.0) fL MCH 29.3 (27.0-32.0) pg MCHC 30.2 L (31.0-37.0) g/dL RDW Std Deviation 53.9 (28.0-62.0) fl RDW Coeff of Rocco 15 (11.0-15.0) % Plt Count 161 (150-400) K/uL MPV 10.40 (7.40-12.00) fL Neut % (Auto) 77.6 (48.0-80.0) % Lymph % (Auto) 15.8 L (16.0-40.0) % Hood % (Auto) 5.8 (0.0-15.0) % Eos % (Auto) 0.7 (0.0-7.0) % Baso % (Auto) 0.1 (0.0-1.5) % Neut # (Auto) 9.6 H (1.4-5.7) K/uL Lymph # (Auto) 1.9 (0.6-2.4) K/uL Hood # (Auto) 0.7 (0.0-0.8) K/uL Eos # (Auto) 0.1 (0.0-0.7) K/uL Baso # (Auto) 0.0 (0.0-0.1) K/uL Nucleated RBC % 0.0 /100WBC Nucleated RBCs # 0 K/uL VBG pH (7.31-7.41) VBG pCO2 (35-45) mmHG VBG pO2 (30-40) mmHG VBG HCO3 (22-30) mEq/L VBG Total CO2 (41-51) mmol/L VBG Base Excess (-3.0-3.0) Sodium 138 (136-148) mmol/L Potassium 5.0 (3.5-5.1) mmol/L Chloride 100 (98-107) mmol/L Carbon Dioxide 33.9 H (21.0-32.0) mmol/L BUN 24 H (7.0-18.0) mg/dL Creatinine 1.0 (0.8-1.3) mg/dL Est Cr Clr Drug Dosing 62.86 mL/min Estimated GFR (MDRD) > 60.0 ml/min Glucose 247 H (74-106) mg/dL POC Glucose (60-110) mg/dL Calcium 8.8 (8.5-10.1) mg/dL Total Bilirubin 0.5 (0.2-1.0) mg/dL AST 15 (15-37) IU/L ALT 25 (14-63) IU/L Alkaline Phosphatase 71 (46-116) U/L Troponin I < 0.050 (0.000-0.056) ng/mL B-Natriuretic Peptide 23 (<100) PG/ML Total Protein 6.2 L (6.4-8.2) g/dL Albumin 2.7 L (3.4-5.0) g/dL Globulin 3.5 (2.6-4.0) g/dL Albumin/Globulin Ratio 0.8 L (0.9-1.6) 02/29/20 03/01/20 03/01/20 Range/Units 21:13 00:33 05:50 WBC 6.08 (4.0-11.0) K/uL RBC 4.07 L (4.50-5.90) M/uL Hgb 11.8 L (13.0-17.0) g/dL Hct 39.2 (38.0-50.0) % MCV 96.3 (80.0-98.0) fL MCH 29.0 (27.0-32.0) pg MCHC 30.1 L (31.0-37.0) g/dL RDW Std Deviation 52.5 (28.0-62.0) fl RDW Coeff of Rocco 15 (11.0-15.0) % Plt Count 158 (150-400) K/uL MPV 10.00 (7.40-12.00) fL Neut % (Auto) 84.0 H (48.0-80.0) % Lymph % (Auto) 14.6 L (16.0-40.0) % Hood % (Auto) 1.2 (0.0-15.0) % Eos % (Auto) 0.0 (0.0-7.0) % Baso % (Auto) 0.2 (0.0-1.5) % Neut # (Auto) 5.1 (1.4-5.7) K/uL Lymph # (Auto) 0.9 (0.6-2.4) K/uL Hood # (Auto) 0.1 (0.0-0.8) K/uL Eos # (Auto) 0.0 (0.0-0.7) K/uL Baso # (Auto) 0.0 (0.0-0.1) K/uL Nucleated RBC % 0.0 /100WBC Nucleated RBCs # 0 K/uL VBG pH 7.43 H (7.31-7.41) VBG pCO2 53 H (35-45) mmHG VBG pO2 57 H (30-40) mmHG VBG HCO3 35 H (22-30) mEq/L VBG Total CO2 31 L (41-51) mmol/L VBG Base Excess 8.7 H (-3.0-3.0) Sodium (136-148) mmol/L Potassium (3.5-5.1) mmol/L Chloride (98-107) mmol/L Carbon Dioxide (21.0-32.0) mmol/L BUN (7.0-18.0) mg/dL Creatinine (0.8-1.3) mg/dL Est Cr Clr Drug Dosing mL/min Estimated GFR (MDRD) ml/min Glucose (74-106) mg/dL POC Glucose 243 H (60-110) mg/dL Calcium (8.5-10.1) mg/dL Total Bilirubin (0.2-1.0) mg/dL AST (15-37) IU/L ALT (14-63) IU/L Alkaline Phosphatase (46-116) U/L Troponin I (0.000-0.056) ng/mL B-Natriuretic Peptide (<100) PG/ML Total Protein (6.4-8.2) g/dL Albumin (3.4-5.0) g/dL Globulin (2.6-4.0) g/dL Albumin/Globulin Ratio (0.9-1.6) 03/01/20 03/01/20 Range/Units 05:50 08:08 WBC (4.0-11.0) K/uL RBC (4.50-5.90) M/uL Hgb (13.0-17.0) g/dL Hct (38.0-50.0) % MCV (80.0-98.0) fL MCH (27.0-32.0) pg MCHC (31.0-37.0) g/dL RDW Std Deviation (28.0-62.0) fl RDW Coeff of Rocco (11.0-15.0) % Plt Count (150-400) K/uL MPV (7.40-12.00) fL Neut % (Auto) (48.0-80.0) % Lymph % (Auto) (16.0-40.0) % Hood % (Auto) (0.0-15.0) % Eos % (Auto) (0.0-7.0) % Baso % (Auto) (0.0-1.5) % Neut # (Auto) (1.4-5.7) K/uL Lymph # (Auto) (0.6-2.4) K/uL Hood # (Auto) (0.0-0.8) K/uL Eos # (Auto) (0.0-0.7) K/uL Baso # (Auto) (0.0-0.1) K/uL Nucleated RBC % /100WBC Nucleated RBCs # K/uL VBG pH (7.31-7.41) VBG pCO2 (35-45) mmHG VBG pO2 (30-40) mmHG VBG HCO3 (22-30) mEq/L VBG Total CO2 (41-51) mmol/L VBG Base Excess (-3.0-3.0) Sodium 139 (136-148) mmol/L Potassium 5.5 H (3.5-5.1) mmol/L Chloride 99 (98-107) mmol/L Carbon Dioxide 33.0 H (21.0-32.0) mmol/L BUN 28 H (7.0-18.0) mg/dL Creatinine 0.9 (0.8-1.3) mg/dL Est Cr Clr Drug Dosing 70.02 mL/min Estimated GFR (MDRD) > 60.0 ml/min Glucose 313 H (74-106) mg/dL POC Glucose 310 H (60-110) mg/dL Calcium 8.9 (8.5-10.1) mg/dL Total Bilirubin (0.2-1.0) mg/dL AST (15-37) IU/L ALT (14-63) IU/L Alkaline Phosphatase (46-116) U/L Troponin I (0.000-0.056) ng/mL B-Natriuretic Peptide (<100) PG/ML Total Protein (6.4-8.2) g/dL Albumin (3.4-5.0) g/dL Globulin (2.6-4.0) g/dL Albumin/Globulin Ratio (0.9-1.6) Result Diagrams: 03/01/20 05:50 03/01/20 05:50 Jason Results Last 24 hrs: Microbiology 02/29/20 22:13 Influenza Type A Antigen Screen - Final Nasopharyngeal Swab NEGATIVE INFLUENZA A VIRUS AG REFERENCE RANGE: NEGATIVE Influenza Type B Antigen Screen - Final NEGATIVE INFLUENZA B VIRUS AG REFERENCE RANGE: NEGATIVE Sepsis Event Note - Evaluation Sepsis Screening Result: No Definite Risk - Focused Exam Vital Signs: Vital Signs Temp Temp Pulse Pulse Resp BP Pulse Ox 03/01/20 08:00 98.2 F 20 140/69 93 L 03/01/20 03:26 96.8 F L 67 20 142/59 H 95 02/29/20 23:15 99.7 F 88 20 155/73 H 92 L 02/29/20 23:02 99.8 F 76 28 H 154/59 H 94 L 02/29/20 22:11 78 24 H 145/64 H 96 02/29/20 21:38 82 26 H 140/64 97 02/29/20 21:21 96.8 F L 82 26 H 136/66 98 Date Exam was Performed: 03/01/20 Time Exam was Performed: 10:50 Problem List Initiated/Reviewed/Updated: Yes Orders Last 24hrs: Active Orders 24 hr Category Date Time Status Admission Status [Patient Status] [ADT] Stat ADT 02/29/20 22:13 Active Blood Glucose Check, Bedside [RC] QIDACANDBED Care 02/29/20 23:54 Active Communication Order [RC] ROUTINE Care 02/29/20 23:59 Active EKG 12 Lead [EKG Documentation Completion] [RC] STAT Care 03/01/20 08:06 Active RT Post Treatment Assessment [RC] Click to Edit Care 02/29/20 23:56 Active RT Pre-Treatment Assessment [RC] Click to Edit Care 02/29/20 23:56 Active Telemetry Monitoring [Cardiac Monitoring] [RC] Q8H Care 02/29/20 23:10 Active CORONAVIRUS COVID-19 PCR PHL [MREF] Stat Lab 02/29/20 22:13 Received Acetaminophen/HYDROcodone [Presidio 325-10 MG] Med 03/01/20 00:01 Active 1 tab PO TID PRN Albuterol/Ipratropium [Combivent Respimat] Med 02/29/20 23:55 Active See Dose Instructions INH Q4H PRN Aspirin [Halfprin] Med 03/01/20 09:00 Active 81 mg PO DAILY Citalopram [Celexa] Med 03/01/20 09:00 Active 10 mg PO DAILY Clopidogrel [Plavix] Med 03/01/20 09:00 Active 75 mg PO DAILY Furosemide [Lasix] Med 03/01/20 09:00 Active 40 mg PO DAILY Gabapentin [Neurontin] Med 03/01/20 12:00 Active 300 mg PO 1200,1800 Gabapentin [Neurontin] Med 03/01/20 09:00 Active 600 mg PO BID Heparin Sodium Med 03/01/20 08:00 Active 5,000 units SUBCUT Q8H Insulin Aspart [NovoLOG] Med 03/01/20 07:30 Active See Protocol SUBCUT TIDAC Insulin Glarg,Human.Rec.Analog [LantUS Solostar] Med 02/29/20 23:45 Active 28 units SUBCUT BID Metoprolol Tartrate [Lopressor] Med 03/01/20 09:00 Active 50 mg PO BID Pantoprazole [ProTONIX] Med 03/02/20 07:30 Active 40 mg PO ACBREAKFAST Patient's Own Medication [Ptom] Med 03/01/20 07:56 Active 0 each TOP QID PRN Rosuvastatin [Crestor] Med 03/01/20 21:00 Active 40 mg PO BEDTIME Sodium Chloride 0.9% [Saline Flush] Med 03/01/20 00:06 Active 10 ml FLUSH ASDIRECTED PRN Sodium Chloride 0.9% [Saline Flush] Med 03/01/20 00:06 Active 2.5 ml FLUSH ASDIRECTED PRN Spironolactone [Aldactone] Med 03/01/20 09:00 Active 50 mg PO DAILY cefTRIAXone [Rocephin] 1 gm Med 03/01/20 00:00 Active Sodium Chloride 0.9% [Normal Saline] 50 ml IV Q24H methylPREDNISolone Sod Succ [Solu-MEDROL] Med 03/01/20 21:00 Active 125 mg IVPUSH Q24H polyethylene glycoL 3350 [MiraLAX] Med 03/01/20 09:00 Active 17 gm PO DAILY Isolation [COMM] Routine Oth 02/29/20 22:04 Active Saline Lock Insert [OM.PC] Routine Oth 03/01/20 00:06 Ordered Medication Orders Hydrocodone Bitart/Acetaminophen ([place] 325-10 Mg) 1 tab PO TID PRN PRN Reason: Pain Albuterol/Ipratropium (Combivent Respimat) 0 gm INH Q4H PRN PRN Reason: Dyspnea Aspirin (Halfprin) 81 mg PO DAILY [facility] Citalopram Hydrobromide (Celexa) 10 mg PO DAILY [facility] Clopidogrel Bisulfate (Plavix) 75 mg PO DAILY [facility] Furosemide (Lasix) 40 mg PO DAILY [facility] Gabapentin (Neurontin) 300 mg PO 1200,1800 [facility] Gabapentin (Neurontin) 600 mg PO BID [facility] Heparin Sodium (Porcine) (Heparin Sodium) 5,000 units SUBCUT Q8H [facility]EN Ceftriaxone Sodium 1 gm/ (Sodium Chloride) 50 mls @ 100 mls/hr IV Q24H [facility] Last Admin: 03/01/20 00:22 Dose: 100 mls/hr Insulin Aspart (Novolog) 0 unit SUBCUT TIDAC [facility]; Protocol Last Admin: 03/01/20 08:09 Dose: 12 units Insulin Glargine (Lantus Solostar) 28 units SUBCUT BID [facility] Last Admin: 03/01/20 00:46 Dose: Not Given Methylprednisolone Sodium Succinate (Solu-Medrol) 125 mg IVPUSH Q24H [facility] Metoprolol Tartrate (Lopressor) 50 mg PO BID [facility] Pantoprazole Sodium (Protonix) 40 mg PO ACBREAKFAST [facility] Diclofenac Sodium [ (Voltaren 1% Gel]) 0 each TOP QID PRN PRN Reason: pain and inflammation Polyethylene Glycol (Miralax) 17 gm PO DAILY [facility] Rosuvastatin Calcium (Crestor) 40 mg PO BEDTIME [facility] Sodium Chloride (Saline Flush) 10 ml FLUSH ASDIRECTED PRN PRN Reason: Keep Vein Open Sodium Chloride (Saline Flush) 2.5 ml FLUSH ASDIRECTED PRN PRN Reason: Keep Vein Open Spironolactone (Aldactone) 50 mg PO DAILY [facility] Assessment/Plan Comment:: Assessment and Plan: 1. Acute on chronic hypoxic respiratory failure secondary to COPD exacerbation: - Admit to med/surg overflow. Will treat with supplemental oxygen, Combivent MDI q4 prn, IV solumedrol 125 mg qd and PO azithromycin. Patient home oxygen at baseline is 2L. Influenza test negative. COVID19 test pending. CXR showed increased density within both sides of chest, however, stable from previous exam on 02/09/20. No acute findings noted on CXR. 2. Hyperkalemia: - Potassium this morning is 5.5 and EKG unremarkable. Patient is asymptomatic. Will recheck potassium level this afternoon. 3. Diabetes mellitus type 2: - ADA diet, SSI, and resume long-acting insulin home dose. 4. DVT prophylaxis: heparin. 5. Past medical history of [place] s/p cardiac stents, CHF and HTN: - Resume home medications.
[2020-03-01] MEDS: Heparin Sodium 5,000 Units/ML Vial SUBCUT SCH ×3 (09:10→23:12)
[2020-03-01] MEDS: Spironolactone 25 MG Tab PO SCH (09:12)
[2020-03-01] MEDS: Citalopram 20 MG Tab PO SCH (09:12)
[2020-03-01] MEDS: Aspirin 81 MG Tab.EC PO SCH (09:13)
[2020-03-01] MEDS: Polyethylene Glycol 3350 Powder 17 GM Packet PO SCH (09:15)
[2020-03-01] MEDS: Furosemide 40 MG Tab PO SCH (09:15)
[2020-03-01] MEDS: Gabapentin 300 MG Cap PO SCH ×4 (09:17→20:40)
[2020-03-01] MEDS: Metoprolol Tartrate 50 MG Tab PO SCH ×2 (09:18→20:40)
[2020-03-01] MEDS: Clopidogrel 75 MG Tab PO SCH (09:19)
[2020-03-01] MEDS: Acetaminophen/HYDROcodone 325-10 MG Tab PO PRN ×2 (09:25→17:25)
[2020-03-01] MEDS: Azithromycin 250 MG Tab PO SCH (09:31)
[2020-03-01] MEDS: methylPREDNISolone Sodium Succinate 125 MG/2 ML SDV IVPUSH SCH (20:40)
[2020-03-01] MEDS: Rosuvastatin 10 MG Tab PO SCH (20:41)
[2020-03-02] MEDS: Acetaminophen/HYDROcodone 325-10 MG Tab PO PRN ×3 (01:14→17:50)
[2020-03-02 05:49] LABS: BLOOD UREA NITROGEN,BUN 36 mg/dL (7.0-18.0); CARBON DIOXIDE,CO2 33.2 mmol/L (21.0-32.0); CHLORIDE,CL 100 mmol/L (98-107); GLUCOSE RANDOM 363 mg/dL (74-106); POTASSIUM,K 5.2 mmol/L (3.5-5.1); SODIUM,NA 138 mmol/L (136-148)
[2020-03-02] MEDS: Pantoprazole 40 MG Tab.CR PO SCH (06:30)
[2020-03-02] MEDS: Insulin Aspart 100 Units/ML 3 ML Pen SUBCUT SCH ×3 (08:00→17:48)
[2020-03-02] MEDS: Heparin Sodium 5,000 Units/ML Vial SUBCUT SCH ×3 (08:05→23:38)
[2020-03-02] MEDS: Gabapentin 300 MG Cap PO SCH ×4 (08:06→20:42)
[2020-03-02] MEDS: Spironolactone 25 MG Tab PO SCH (08:06)
[2020-03-02] MEDS: Polyethylene Glycol 3350 Powder 17 GM Packet PO SCH (08:07)
[2020-03-02] MEDS: Aspirin 81 MG Tab.EC PO SCH (08:07)
[2020-03-02] MEDS: Clopidogrel 75 MG Tab PO SCH (08:07)
[2020-03-02] MEDS: Furosemide 40 MG Tab PO SCH (08:07)
[2020-03-02] MEDS: Citalopram 20 MG Tab PO SCH (08:08)
[2020-03-02] MEDS: Metoprolol Tartrate 50 MG Tab PO SCH ×2 (08:35→20:42)
[2020-03-02] MEDS ORDERED: Albuterol/Ipratropium 4 GM Inhalation Spray INH SCH (09:00)
[2020-03-02] MEDS: Azithromycin 250 MG Tab PO SCH (09:04)
[2020-03-02] MEDS: Insulin Glargine,Human Rec. Analog 100 Units/ML 3 ML Pen SUBCUT SCH ×2 (09:22→20:31)
[2020-03-02] MEDS: Diclofenac Sodium [Voltaren 1% Gel] TOP PRN (11:01)
[2020-03-02] MEDS: Albuterol 8 GM Inhaler INH SCH ×4 (11:02→21:08)
--- NOTE | 2020-03-02 11:08 | PCM.PN ---
- General Info Date of Service: 03/02/20 Subjective Update: Reports no SOB at rest but gets SOB when ambulating. Cough has improved. Tolerating PO diet and having bowel movements. - Patient Data Vitals - Most Recent: Last Vital Signs Temp 97.5 F 03/02/20 03:35 Pulse 99 03/02/20 08:35 Resp 24 H 03/02/20 08:18 BP 139/71 03/02/20 08:35 Pulse Ox 94 L 03/02/20 08:18 Weight - Most Recent: 239 lb 3.225 oz I&O - Last 24 Hours: Intake & Output 03/01/20 03/02/20 03/02/20 22:59 06:59 14:59 Intake Total 1126 450 Output Total 755 400 Balance 371 50 Lab Results Last 24 Hours: Laboratory Results - last 24 hr 03/01/20 03/01/20 03/01/20 Range/Units 11:23 15:18 16:02 WBC (4.0-11.0) K/uL RBC (4.50-5.90) M/uL Hgb (13.0-17.0) g/dL Hct (38.0-50.0) % MCV (80.0-98.0) fL MCH (27.0-32.0) pg MCHC (31.0-37.0) g/dL RDW Std Deviation (28.0-62.0) fl RDW Coeff of Rocco (11.0-15.0) % Plt Count (150-400) K/uL MPV (7.40-12.00) fL Neut % (Auto) (48.0-80.0) % Lymph % (Auto) (16.0-40.0) % [place] % (Auto) (0.0-15.0) % Eos % (Auto) (0.0-7.0) % Baso % (Auto) (0.0-1.5) % Neut # (Auto) (1.4-5.7) K/uL Lymph # (Auto) (0.6-2.4) K/uL [place] # (Auto) (0.0-0.8) K/uL Eos # (Auto) (0.0-0.7) K/uL Baso # (Auto) (0.0-0.1) K/uL Nucleated RBC % /100WBC Nucleated RBCs # K/uL Sodium (136-148) mmol/L Potassium 5.2 H (3.5-5.1) mmol/L Chloride (98-107) mmol/L Carbon Dioxide (21.0-32.0) mmol/L BUN (7.0-18.0) mg/dL Creatinine (0.8-1.3) mg/dL Est Cr Clr Drug Dosing mL/min Estimated GFR (MDRD) ml/min Glucose (74-106) mg/dL POC Glucose 396 H 371 H (60-110) mg/dL Calcium (8.5-10.1) mg/dL Phosphorus (2.6-4.7) mg/dL Magnesium (1.8-2.4) mg/dL Total Bilirubin (0.2-1.0) mg/dL AST (15-37) IU/L ALT (14-63) IU/L Alkaline Phosphatase (46-116) U/L Total Protein (6.4-8.2) g/dL Albumin (3.4-5.0) g/dL Globulin (2.6-4.0) g/dL Albumin/Globulin Ratio (0.9-1.6) 03/01/20 03/02/20 03/02/20 Range/Units 20:33 05:10 05:10 WBC 9.31 (4.0-11.0) K/uL RBC 4.08 L (4.50-5.90) M/uL Hgb 11.8 L (13.0-17.0) g/dL Hct 38.6 (38.0-50.0) % MCV 94.6 (80.0-98.0) fL MCH 28.9 (27.0-32.0) pg MCHC 30.6 L (31.0-37.0) g/dL RDW Std Deviation 50.8 (28.0-62.0) fl RDW Coeff of Rocco 15 (11.0-15.0) % Plt Count 200 (150-400) K/uL MPV 9.80 (7.40-12.00) fL Neut % (Auto) 89.2 H (48.0-80.0) % Lymph % (Auto) 9.6 L (16.0-40.0) % [place] % (Auto) 1.1 (0.0-15.0) % Eos % (Auto) 0.0 (0.0-7.0) % Baso % (Auto) 0.1 (0.0-1.5) % Neut # (Auto) 8.3 H (1.4-5.7) K/uL Lymph # (Auto) 0.9 (0.6-2.4) K/uL [place] # (Auto) 0.1 (0.0-0.8) K/uL Eos # (Auto) 0.0 (0.0-0.7) K/uL Baso # (Auto) 0.0 (0.0-0.1) K/uL Nucleated RBC % 0.0 /100WBC Nucleated RBCs # 0 K/uL Sodium 138 (136-148) mmol/L Potassium 5.2 H (3.5-5.1) mmol/L Chloride 100 (98-107) mmol/L Carbon Dioxide 33.2 H (21.0-32.0) mmol/L BUN 36 H (7.0-18.0) mg/dL Creatinine 0.9 (0.8-1.3) mg/dL Est Cr Clr Drug Dosing 70.02 mL/min Estimated GFR (MDRD) > 60.0 ml/min Glucose 363 H (74-106) mg/dL POC Glucose 339 H (60-110) mg/dL Calcium 8.8 (8.5-10.1) mg/dL Phosphorus 3.9 (2.6-4.7) mg/dL Magnesium 1.8 (1.8-2.4) mg/dL Total Bilirubin 0.3 (0.2-1.0) mg/dL AST 8 L (15-37) IU/L ALT 19 (14-63) IU/L Alkaline Phosphatase 63 (46-116) U/L Total Protein 6.2 L (6.4-8.2) g/dL Albumin 2.7 L (3.4-5.0) g/dL Globulin 3.5 (2.6-4.0) g/dL Albumin/Globulin Ratio 0.8 L (0.9-1.6) 03/02/20 03/02/20 Range/Units 06:21 08:03 WBC (4.0-11.0) K/uL RBC (4.50-5.90) M/uL Hgb (13.0-17.0) g/dL Hct (38.0-50.0) % MCV (80.0-98.0) fL MCH (27.0-32.0) pg MCHC (31.0-37.0) g/dL RDW Std Deviation (28.0-62.0) fl RDW Coeff of Rocco (11.0-15.0) % Plt Count (150-400) K/uL MPV (7.40-12.00) fL Neut % (Auto) (48.0-80.0) % Lymph % (Auto) (16.0-40.0) % [place] % (Auto) (0.0-15.0) % Eos % (Auto) (0.0-7.0) % Baso % (Auto) (0.0-1.5) % Neut # (Auto) (1.4-5.7) K/uL Lymph # (Auto) (0.6-2.4) K/uL [place] # (Auto) (0.0-0.8) K/uL Eos # (Auto) (0.0-0.7) K/uL Baso # (Auto) (0.0-0.1) K/uL Nucleated RBC % /100WBC Nucleated RBCs # K/uL Sodium (136-148) mmol/L Potassium (3.5-5.1) mmol/L Chloride (98-107) mmol/L Carbon Dioxide (21.0-32.0) mmol/L BUN (7.0-18.0) mg/dL Creatinine (0.8-1.3) mg/dL Est Cr Clr Drug Dosing mL/min Estimated GFR (MDRD) ml/min Glucose (74-106) mg/dL POC Glucose 356 H 326 H (60-110) mg/dL Calcium (8.5-10.1) mg/dL Phosphorus (2.6-4.7) mg/dL Magnesium (1.8-2.4) mg/dL Total Bilirubin (0.2-1.0) mg/dL AST (15-37) IU/L ALT (14-63) IU/L Alkaline Phosphatase (46-116) U/L Total Protein (6.4-8.2) g/dL Albumin (3.4-5.0) g/dL Globulin (2.6-4.0) g/dL Albumin/Globulin Ratio (0.9-1.6) Med Orders - Current: Current Medications Hydrocodone Bitart/Acetaminophen ([place] 325-10 Mg) 1 tab PO TID PRN PRN Reason: Pain Last Admin: 03/02/20 09:18 Dose: 1 tab Aspirin (Halfprin) 81 mg PO DAILY [facility] [place] Last Admin: 03/02/20 08:07 Dose: 81 mg Azithromycin (Zithromax) 500 mg PO Q24H [facility] [place] Last Admin: 03/02/20 09:04 Dose: 500 mg Citalopram Hydrobromide (Celexa) 10 mg PO DAILY [facility] [place] Last Admin: 03/02/20 08:08 Dose: 10 mg Clopidogrel Bisulfate (Plavix) 75 mg PO DAILY [facility] [place] Last Admin: 03/02/20 08:07 Dose: 75 mg Furosemide (Lasix) 40 mg PO DAILY [facility] [place] Last Admin: 03/02/20 08:07 Dose: 40 mg Gabapentin (Neurontin) 300 mg PO 1200,1800 [facility] [place] Last Admin: 03/01/20 17:25 Dose: 300 mg Gabapentin (Neurontin) 600 mg PO BID [facility] [place] Last Admin: 03/02/20 08:06 Dose: 600 mg Heparin Sodium (Porcine) (Heparin Sodium) 5,000 units SUBCUT Q8H [facility] [place] Last Admin: 03/02/20 08:05 Dose: 5,000 units Insulin Aspart (Novolog) 0 unit SUBCUT TIDAC [facility] [place]; Protocol Last Admin: 03/02/20 08:00 Dose: 12 units Insulin Glargine (Lantus Solostar) 28 units SUBCUT BID [facility] [place] Last Admin: 03/02/20 09:22 Dose: 28 units Methylprednisolone Sodium Succinate (Solu-Medrol) 125 mg IVPUSH Q24H [facility] [place] Last Admin: 03/01/20 20:40 Dose: 125 mg Metoprolol Tartrate (Lopressor) 50 mg PO BID [facility] [place] Last Admin: 03/02/20 08:35 Dose: 50 mg Pantoprazole Sodium (Protonix) 40 mg PO ACBREAKFAST [facility] [place] Last Admin: 03/02/20 06:30 Dose: 40 mg Diclofenac Sodium [ (Voltaren 1% Gel]) 0 each TOP QID PRN PRN Reason: pain and inflammation Last Admin: 03/02/20 11:01 Dose: 1 each Albuterol 8 Gm (Inhaler) 0 each INH Q4H [facility] [place] Last Admin: 03/02/20 11:02 Dose: 1 each Polyethylene Glycol (Miralax) 17 gm PO DAILY [facility] [place] Last Admin: 03/02/20 08:07 Dose: 17 gm Rosuvastatin Calcium (Crestor) 40 mg PO BEDTIME [facility] [place] Last Admin: 03/01/20 20:41 Dose: 40 mg Sodium Chloride (Saline Flush) 10 ml FLUSH ASDIRECTED PRN PRN Reason: Keep Vein Open Sodium Chloride (Saline Flush) 2.5 ml FLUSH ASDIRECTED PRN PRN Reason: Keep Vein Open Spironolactone (Aldactone) 50 mg PO DAILY [facility] [place] Last Admin: 03/02/20 08:06 Dose: 50 mg Discontinued Medications Hydrocodone Bitart/Acetaminophen ([place] 325-10 Mg) 1 tab PO ONETIME ONE Stop: 02/29/20 22:01 Last Admin: 02/29/20 22:07 Dose: 1 tab Albuterol/Ipratropium (Combivent Respimat) 0 gm INH Q4H PRN PRN Reason: Dyspnea Azithromycin (Zithromax) 500 mg PO ONETIME ONE Stop: 02/29/20 21:12 Last Admin: 02/29/20 21:27 Dose: 500 mg Magnesium Sulfate 2 gm/ Premix 50 mls @ 50 mls/hr IV ONETIME ONE Stop: 02/29/20 22:09 Last Admin: 02/29/20 21:27 Dose: 50 mls/hr Ceftriaxone Sodium 1 gm/ (Sodium Chloride) 50 mls @ 100 mls/hr IV Q24H [facility] [place] Last Admin: 03/01/20 00:22 Dose: 100 mls/hr Methylprednisolone Sodium Succinate (Solu-Medrol) 125 mg IVPUSH ONETIME ONE Stop: 02/29/20 21:31 Last Admin: 02/29/20 21:30 Dose: 125 mg - Exam General: Alert, Oriented, Cooperative, No Acute Distress Lungs: Other (quiet breath sounds b/l, CTAB) Cardiovascular: Regular Rate, Regular Rhythm GI/Abdominal Exam: Normal Bowel Sounds, Soft, Non-Tender, No Distention Extremities: Normal Inspection, No Pedal Edema Sepsis Event Note - Evaluation Sepsis Screening Result: No Definite Risk - Focused Exam Vital Signs: Vital Signs Temp Pulse Resp BP BP Pulse Ox 03/02/20 08:35 99 139/71 03/02/20 08:18 24 H 139/71 94 L 03/02/20 03:35 97.5 F 64 20 127/58 L 94 L 03/01/20 23:14 97.0 F 73 20 172/72 H 95 Date Exam was Performed: 03/02/20 Time Exam was Performed: 11:05 - Problem List Review Problem List Initiated/Reviewed/Updated: Yes - My Orders Last 24 Hours: My Active Orders 03/01/20 12:00 Gabapentin [Neurontin] 300 mg PO 1200,1800 03/01/20 21:00 Rosuvastatin [Crestor] 40 mg PO BEDTIME 03/02/20 07:30 Pantoprazole [ProTONIX] 40 mg PO ACBREAKFAST 03/03/20 05:11 CBC WITH AUTO DIFF [HEME] AM COMPREHENSIVE METABOLIC PN,CMP [CHEM] AM - Plan Plan:: Assessment and Plan: 1. Acute on chronic hypoxic respiratory failure secondary to COPD exacerbation: - Continue supplemental oxygen, will change to albuterol INH q4 MAGEN, IV solumedrol 125 mg qd and PO azithromycin. Patient home oxygen at baseline is 2L. COVID19 test currently pending. 2. Hyperkalemia: - Potassium this morning is 5.2, will continue to monitor. 3. Diabetes mellitus type 2: - ADA diet, SSI, and long-acting insulin. 4. DVT prophylaxis: heparin. 5. Past medical history of SD s/p cardiac stents, CHF and HTN: - Resume home medications.
[2020-03-02] MEDS: Rosuvastatin 10 MG Tab PO SCH (20:41)
[2020-03-02] MEDS: methylPREDNISolone Sodium Succinate 125 MG/2 ML SDV IVPUSH SCH (20:42)
[2020-03-03] MEDS: Acetaminophen/HYDROcodone 325-10 MG Tab PO PRN ×2 (01:54→09:46)
[2020-03-03] MEDS: Albuterol 8 GM Inhaler INH SCH ×3 (01:55→09:47)
[2020-03-03 05:33] LABS: BLOOD UREA NITROGEN,BUN 33 mg/dL (7.0-18.0); CARBON DIOXIDE,CO2 35.7 mmol/L (21.0-32.0); CHLORIDE,CL 101 mmol/L (98-107); GLUCOSE RANDOM 324 mg/dL (74-106); SODIUM,NA 140 mmol/L (136-148)
[2020-03-03] MEDS: Pantoprazole 40 MG Tab.CR PO SCH (06:44)
[2020-03-03] MEDS: Insulin Aspart 100 Units/ML 3 ML Pen SUBCUT SCH ×2 (07:32→11:48)
[2020-03-03] MEDS: Heparin Sodium 5,000 Units/ML Vial SUBCUT SCH (07:33)
[2020-03-03] MEDS: Polyethylene Glycol 3350 Powder 17 GM Packet PO SCH (08:09)
[2020-03-03] MEDS: Gabapentin 300 MG Cap PO SCH (08:10)
[2020-03-03] MEDS: Spironolactone 25 MG Tab PO SCH (08:10)
[2020-03-03] MEDS: Citalopram 20 MG Tab PO SCH (08:10)
[2020-03-03] MEDS: Aspirin 81 MG Tab.EC PO SCH (08:10)
[2020-03-03] MEDS: Metoprolol Tartrate 50 MG Tab PO SCH (08:10)
[2020-03-03] MEDS: Furosemide 40 MG Tab PO SCH (08:10)
[2020-03-03] MEDS: Clopidogrel 75 MG Tab PO SCH (08:10)
[2020-03-03] MEDS: Insulin Glargine,Human Rec. Analog 100 Units/ML 3 ML Pen SUBCUT SCH (08:17)
[2020-03-03] MEDS: Azithromycin 250 MG Tab PO SCH (08:34)
[2020-03-03] MEDS: Diclofenac Sodium [Voltaren 1% Gel] TOP PRN (08:41)
--- NOTE | 2020-03-03 10:43 | PCM.DCSUM1 ---
Addendum entered and electronically signed by Shade Stuart MD 03/03/20 10: 44: Discharge Summary - Hospital Course Free Text/Narrative:: Resume home health on discharge. - Discharge Data Discharge Date: 03/03/20 Discharge Disposition: Home, Self-Care 01 Condition: Stable - Referral to Home Health Primary Care Physician: PCP None - Patient Instructions Diet: Heart Healthy Diet, Diabetic Diet Activity: As Tolerated Notify Provider of: Fever, Increased Pain, Swelling and Redness, Drainage, Nausea and/or Vomiting - Discharge Plan *PRESCRIPTION DRUG MONITORING PROGRAM REVIEWED*: Not Applicable *COPY OF PRESCRIPTION DRUG MONITORING REPORT IN PATIENT MARK: Not Applicable Prescriptions/Med Rec: Azithromycin [Zithromax] 500 mg PO Q24H 2 Days #2 tablet methylPREDNISolone [Medrol Dose Pack] 4 mg PO DAILY #1 dospk predniSONE [Prednisone] 20 mg PO DAILY 12 Days #24 tablet Home Medications: Home Meds Albuterol Sulfate [Albuterol Sulfate Hfa] 2 inh IH Q6H PRN 10/13/19 [History] Albuterol/Ipratropium [DuoNeb 3.0-0.5 MG/3 ML] 3 ml NEB Q6H 10/13/19 [History] Aspirin [Ecotrin EC] 81 mg PO DAILY 10/13/19 [History] Budesonide/Formoterol Fumarate [Symbicort 160-4.5 Mcg Inhaler] 2 inh IH Q12H [History] Citalopram [Citalopram HBr] 10 mg PO DAILY 10/13/19 [History] Clopidogrel [Plavix] 75 mg PO DAILY 10/13/19 [History] Diclofenac Sodium [Voltaren 1% Gel] 4 gm TOP QID PRN MDD total body dose 32gm max 10/13/19 [History] Hydrocodone/Acetaminophen [[place] 10-325 Tablet] 10 - 325 mg PO TID PRN 10/13/19 [History] Insulin Aspart [NovoLOG] 12 unit SUBCUT BID@08,12 10/13/19 [History] Insulin Aspart [NovoLOG] 15 unit SUBCUT WITHDINNER 10/13/19 [History] Lidocaine 5% [Lidoderm 5%] 2 patch TD .ON 12 HR, OFF 12 HR 10/13/19 [History] Metoprolol Tartrate 50 mg PO BID 10/13/19 [History] Deep Run-3/DHA/Epa/Fish Oil [Fish Oil 1,000 mg Softgel] 1,000 mg PO BID 10/13/19 [ History] Pantoprazole [ProTONIX] 40 mg PO ACBREAKFAST 10/13/19 [History] Rosuvastatin Calcium [Crestor] 40 mg PO BEDTIME 10/13/19 [History] Spironolactone [Aldactone] 50 mg PO DAILY 10/13/19 [History] metFORMIN HCl [Metformin HCl ER] 1,000 mg PO BID 10/13/19 [History] polyethylene glycoL 3350 [MiraLAX] 17 gm PO DAILY 10/13/19 [History] Furosemide 40 mg PO DAILY 12/30/19 [History] Gabapentin [Neurontin] 600 mg PO BID 12/30/19 [History] Alogliptin Benzoate [Alogliptin] 25 mg PO DAILY 01/27/20 [History] Meloxicam 15 mg PO WITHBREAKFAST 01/27/20 [History] Gabapentin [Neurontin] 300 mg PO 1200,1800 01/31/20 [History] Azithromycin [Zithromax] 500 mg PO Q24H 2 Days #2 tablet 03/03/20 [Rx] Insulin Glarg,Human.Rec.Analog [Lantus Solostar] 30 unit SUBCUT BID #1 box 03/03 [Rx] methylPREDNISolone [Medrol Dose Pack] 4 mg PO DAILY #1 dospk 03/03/20 [Rx] predniSONE [Prednisone] 20 mg PO DAILY 12 Days #24 tablet 03/03/20 [Rx] Oxygen Therapy Mode: Nasal Cannula Oxygen Flow Rate (L/min): 2 Patient Handouts: Chronic Obstructive Pulmonary Disease Exacerbation, Easy-to- Read, Azithromycin tablets, Methylprednisolone tablets, Prednisone tablets Referrals: [facility] [Outside] Joel Jose MD [Resident] - 03[facility]15/20 2[facility] - 03/15/20 2:00 pm - Discharge Summary/Plan Comment DC Time >30 min.: No - Patient Data Vitals - Most Recent: Last Vital Signs Temp 97.7 F 03/03/20 07:36 Pulse 90 03/03/20 08:10 Resp 18 03/03/20 07:36 BP 132/62 03/03/20 08:10 Pulse Ox 94 L 03/03/20 07:36 Weight - Most Recent: 239 lb 3.225 oz I&O - Last 24 hours: Intake & Output 03/02/20 03/03/20 03/03/20 22:59 06:59 14:59 Intake Total 680 500 Output Total 0 600 Balance 680 -100 Lab Results - Last 24 hrs: Laboratory Results - last 24 hr 03/02/20 03/02/20 03/02/20 Range/Units 12:00 13:53 17:48 WBC (4.0-11.0) K/uL RBC (4.50-5.90) M/uL Hgb (13.0-17.0) g/dL Hct (38.0-50.0) % MCV (80.0-98.0) fL MCH (27.0-32.0) pg MCHC (31.0-37.0) g/dL RDW Std Deviation (28.0-62.0) fl RDW Coeff of Rocco (11.0-15.0) % Plt Count (150-400) K/uL MPV (7.40-12.00) fL Neut % (Auto) (48.0-80.0) % Lymph % (Auto) (16.0-40.0) % Rains % (Auto) (0.0-15.0) % Eos % (Auto) (0.0-7.0) % Baso % (Auto) (0.0-1.5) % Neut # (Auto) (1.4-5.7) K/uL Lymph # (Auto) (0.6-2.4) K/uL Rains # (Auto) (0.0-0.8) K/uL Eos # (Auto) (0.0-0.7) K/uL Baso # (Auto) (0.0-0.1) K/uL Nucleated RBC % /100WBC Nucleated RBCs # K/uL Sodium (136-148) mmol/L Potassium (3.5-5.1) mmol/L Chloride (98-107) mmol/L Carbon Dioxide (21.0-32.0) mmol/L BUN (7.0-18.0) mg/dL Creatinine (0.8-1.3) mg/dL Est Cr Clr Drug Dosing mL/min Estimated GFR (MDRD) ml/min Glucose (74-106) mg/dL POC Glucose 434 H 412 H 292 H (60-110) mg/dL Calcium (8.5-10.1) mg/dL Total Bilirubin (0.2-1.0) mg/dL AST (15-37) IU/L ALT (14-63) IU/L Alkaline Phosphatase (46-116) U/L Total Protein (6.4-8.2) g/dL Albumin (3.4-5.0) g/dL Globulin (2.6-4.0) g/dL Albumin/Globulin Ratio (0.9-1.6) 03/02/20 03/03/20 03/03/20 Range/Units 20:28 05:00 05:00 WBC 6.53 (4.0-11.0) K/uL RBC 4.02 L (4.50-5.90) M/uL Hgb 11.7 L (13.0-17.0) g/dL Hct 38.2 (38.0-50.0) % MCV 95.0 (80.0-98.0) fL MCH 29.1 (27.0-32.0) pg MCHC 30.6 L (31.0-37.0) g/dL RDW Std Deviation 51.3 (28.0-62.0) fl RDW Coeff of Rocco 15 (11.0-15.0) % Plt Count 189 (150-400) K/uL MPV 10.10 (7.40-12.00) fL Neut % (Auto) 86.2 H (48.0-80.0) % Lymph % (Auto) 12.1 L (16.0-40.0) % Rains % (Auto) 1.7 (0.0-15.0) % Eos % (Auto) 0.0 (0.0-7.0) % Baso % (Auto) 0.0 (0.0-1.5) % Neut # (Auto) 5.6 (1.4-5.7) K/uL Lymph # (Auto) 0.8 (0.6-2.4) K/uL Rains # (Auto) 0.1 (0.0-0.8) K/uL Eos # (Auto) 0.0 (0.0-0.7) K/uL Baso # (Auto) 0.0 (0.0-0.1) K/uL Nucleated RBC % 0.0 /100WBC Nucleated RBCs # 0 K/uL Sodium 140 (136-148) mmol/L Potassium 5.0 (3.5-5.1) mmol/L Chloride 101 (98-107) mmol/L Carbon Dioxide 35.7 H (21.0-32.0) mmol/L BUN 33 H (7.0-18.0) mg/dL Creatinine 0.9 (0.8-1.3) mg/dL Est Cr Clr Drug Dosing 70.02 mL/min Estimated GFR (MDRD) > 60.0 ml/min Glucose 324 H (74-106) mg/dL POC Glucose 311 H (60-110) mg/dL Calcium 8.6 (8.5-10.1) mg/dL Total Bilirubin 0.3 (0.2-1.0) mg/dL AST 11 L (15-37) IU/L ALT 24 (14-63) IU/L Alkaline Phosphatase 58 (46-116) U/L Total Protein 5.9 L (6.4-8.2) g/dL Albumin 2.5 L (3.4-5.0) g/dL Globulin 3.4 (2.6-4.0) g/dL Albumin/Globulin Ratio 0.7 L (0.9-1.6) 03/03/20 03/03/20 Range/Units 06:52 08:15 WBC (4.0-11.0) K/uL RBC (4.50-5.90) M/uL Hgb (13.0-17.0) g/dL Hct (38.0-50.0) % MCV (80.0-98.0) fL MCH (27.0-32.0) pg MCHC (31.0-37.0) g/dL RDW Std Deviation (28.0-62.0) fl RDW Coeff of Rocco (11.0-15.0) % Plt Count (150-400) K/uL MPV (7.40-12.00) fL Neut % (Auto) (48.0-80.0) % Lymph % (Auto) (16.0-40.0) % Rains % (Auto) (0.0-15.0) % Eos % (Auto) (0.0-7.0) % Baso % (Auto) (0.0-1.5) % Neut # (Auto) (1.4-5.7) K/uL Lymph # (Auto) (0.6-2.4) K/uL Rains # (Auto) (0.0-0.8) K/uL Eos # (Auto) (0.0-0.7) K/uL Baso # (Auto) (0.0-0.1) K/uL Nucleated RBC % /100WBC Nucleated RBCs # K/uL Sodium (136-148) mmol/L Potassium (3.5-5.1) mmol/L Chloride (98-107) mmol/L Carbon Dioxide (21.0-32.0) mmol/L BUN (7.0-18.0) mg/dL Creatinine (0.8-1.3) mg/dL Est Cr Clr Drug Dosing mL/min Estimated GFR (MDRD) ml/min Glucose (74-106) mg/dL POC Glucose 301 H 406 H (60-110) mg/dL Calcium (8.5-10.1) mg/dL Total Bilirubin (0.2-1.0) mg/dL AST (15-37) IU/L ALT (14-63) IU/L Alkaline Phosphatase (46-116) U/L Total Protein (6.4-8.2) g/dL Albumin (3.4-5.0) g/dL Globulin (2.6-4.0) g/dL Albumin/Globulin Ratio (0.9-1.6) CHARLENE Results - Last 24 hrs: Microbiology 02/29/20 22:13 Coronavirus RNA (PCR) - Final Nasopharyngeal Swab Med Orders - Current: Current Medications Hydrocodone Bitart/Acetaminophen ([place] 325-10 Mg) 1 tab PO TID PRN PRN Reason: Pain Last Admin: 03/03/20 09:46 Dose: 1 tab Aspirin (Halfprin) 81 mg PO DAILY [facility] Last Admin: 03/03/20 08:10 Dose: 81 mg Azithromycin (Zithromax) 500 mg PO Q24H [facility] Last Admin: 03/03/20 08:34 Dose: 500 mg Citalopram Hydrobromide (Celexa) 10 mg PO DAILY [facility] Last Admin: 03/03/20 08:10 Dose: 10 mg Clopidogrel Bisulfate (Plavix) 75 mg PO DAILY [facility] Last Admin: 03/03/20 08:10 Dose: 75 mg Furosemide (Lasix) 40 mg PO DAILY [facility] Last Admin: 03/03/20 08:10 Dose: 40 mg Gabapentin (Neurontin) 300 mg PO 1200,1800 [facility] Last Admin: 03/02/20 17:50 Dose: 300 mg Gabapentin (Neurontin) 600 mg PO BID [facility] Last Admin: 03/03/20 08:10 Dose: 600 mg Heparin Sodium (Porcine) (Heparin Sodium) 5,000 units SUBCUT Q8H [facility] Last Admin: 03/03/20 07:33 Dose: 5,000 units Insulin Aspart (Novolog) 0 unit SUBCUT TIDAC [facility]; Protocol Last Admin: 03/03/20 07:32 Dose: 12 units Insulin Glargine (Lantus Solostar) 30 units SUBCUT BID [facility] Last Admin: 03/03/20 08:17 Dose: 30 units Methylprednisolone Sodium Succinate (Solu-Medrol) 125 mg IVPUSH Q24H [facility] Last Admin: 03/02/20 20:42 Dose: 125 mg Metoprolol Tartrate (Lopressor) 50 mg PO BID [facility] Last Admin: 03/03/20 08:10 Dose: 50 mg Pantoprazole Sodium (Protonix) 40 mg PO ACBREAKFAST [facility] Last Admin: 03/03/20 06:44 Dose: 40 mg Diclofenac Sodium [ (Voltaren 1% Gel]) 0 each TOP QID PRN PRN Reason: pain and inflammation Last Admin: 03/03/20 08:41 Dose: 1 each Albuterol 8 Gm (Inhaler) 0 each INH Q4H [facility] Last Admin: 03/03/20 09:47 Dose: 1 each Budesonide/Formoterol Fumarate [Symbicort 160-4.5 Mcg Inhaler] 0 each INH BID [facility] Last Admin: 03/03/20 08:19 Dose: 2 each Polyethylene Glycol (Miralax) 17 gm PO DAILY [facility] Last Admin: 03/03/20 08:09 Dose: 17 gm Rosuvastatin Calcium (Crestor) 40 mg PO BEDTIME [facility] Last Admin: 03/02/20 20:41 Dose: 40 mg Sodium Chloride (Saline Flush) 10 ml FLUSH ASDIRECTED PRN PRN Reason: Keep Vein Open Sodium Chloride (Saline Flush) 2.5 ml FLUSH ASDIRECTED PRN PRN Reason: Keep Vein Open Spironolactone (Aldactone) 50 mg PO DAILY [facility] Last Admin: 03/03/20 08:10 Dose: 50 mg Discontinued Medications Hydrocodone Bitart/Acetaminophen ([place] 325-10 Mg) 1 tab PO ONETIME ONE Stop: 02/29/20 22:01 Last Admin: 02/29/20 22:07 Dose: 1 tab Albuterol/Ipratropium (Combivent Respimat) 0 gm INH Q4H PRN PRN Reason: Dyspnea Azithromycin (Zithromax) 500 mg PO ONETIME ONE Stop: 02/29/20 21:12 Last Admin: 02/29/20 21:27 Dose: 500 mg Magnesium Sulfate 2 gm/ Premix 50 mls @ 50 mls/hr IV ONETIME ONE Stop: 02/29/20 22:09 Last Admin: 02/29/20 21:27 Dose: 50 mls/hr Ceftriaxone Sodium 1 gm/ (Sodium Chloride) 50 mls @ 100 mls/hr IV Q24H [facility] Last Admin: 03/01/20 00:22 Dose: 100 mls/hr Insulin Glargine (Lantus Solostar) 28 units SUBCUT BID [facility] Last Admin: 03/02/20 09:22 Dose: 28 units Methylprednisolone Sodium Succinate (Solu-Medrol) 125 mg IVPUSH ONETIME ONE Stop: 02/29/20 21:31 Last Admin: 02/29/20 21:30 Dose: 125 mg Original Note: <Shade Stuart M - Last Filed: 03/03/20 10:43> Discharge Summary - Hospital Course Free Text/Narrative:: 79-year-old male admitted for acute on chronic hypoxic respiratory failure secondary to COPD exacerbation. He has a PMH of [place] s/p cardiac stents, CHF, HTN and DM type 2. CXR on admission showed increased density within both sides of chest, worse on left side but stable from previous CXR. Influenza and COVID19 tests were negative. Patient was treated with supplemental oxygen, IV solumedrol 125 qd, albuterol MDI breathing treatments and PO azithromycin. Patient was weaned down to his home oxygen baseline of 2L. He was discharged in stable condition with 2 more days of azithromycin and 12-day prednisone taper course. His lantus dose was increased to 30 units subcut BID. Furthermore, a script for medrol dose pack was sent to pharmacy and patient advised to fill only if required after completing 12-day prednisone taper course. On day of discharge, patient noted improvement in his breathing and cough. Advised to follow-up with PCP on discharge. - Discharge Data Discharge Date: 03/03/20 Discharge Disposition: Home, Self-Care 01 Condition: Stable - Referral to Home Health Primary Care Physician: PCP None - Patient Instructions Diet: Heart Healthy Diet, Diabetic Diet Activity: As Tolerated Notify Provider of: Fever, Increased Pain, Swelling and Redness, Drainage, Nausea and/or Vomiting - Discharge Plan *PRESCRIPTION DRUG MONITORING PROGRAM REVIEWED*: Not Applicable *COPY OF PRESCRIPTION DRUG MONITORING REPORT IN PATIENT MARK: Not Applicable Prescriptions/Med Rec: Azithromycin [Zithromax] 500 mg PO Q24H 2 Days #2 tablet methylPREDNISolone [Medrol Dose Pack] 4 mg PO DAILY #1 dospk predniSONE [Prednisone] 20 mg PO DAILY 12 Days #24 tablet Home Medications: Home Meds Albuterol Sulfate [Albuterol Sulfate Hfa] 2 inh IH Q6H PRN 10/13/19 [History] Albuterol/Ipratropium [DuoNeb 3.0-0.5 MG/3 ML] 3 ml NEB Q6H 10/13/19 [History] Aspirin [Ecotrin EC] 81 mg PO DAILY 10/13/19 [History] Budesonide/Formoterol Fumarate [Symbicort 160-4.5 Mcg Inhaler] 2 inh IH Q12H [History] Citalopram [Citalopram HBr] 10 mg PO DAILY 10/13/19 [History] Clopidogrel [Plavix] 75 mg PO DAILY 10/13/19 [History] Diclofenac Sodium [Voltaren 1% Gel] 4 gm TOP QID PRN MDD total body dose 32gm max 10/13/19 [History] Hydrocodone/Acetaminophen [[place] 10-325 Tablet] 10 - 325 mg PO TID PRN 10/13/19 [History] Insulin Aspart [NovoLOG] 12 unit SUBCUT BID@10/13/19 [History] Insulin Aspart [NovoLOG] 15 unit SUBCUT WITHDINNER 10/13/19 [History] Lidocaine 5% [Lidoderm 5%] 2 patch TD .ON 12 HR, OFF 12 HR 10/13/19 [History] Metoprolol Tartrate 50 mg PO BID 10/13/19 [History] Deep [place]-3/DHA/Epa/Fish Oil [Fish Oil 1,000 mg Softgel] 1,000 mg PO BID 10/13/19 [ History] Pantoprazole [ProTONIX] 40 mg PO ACBREAKFAST 10/13/19 [History] Rosuvastatin Calcium [Crestor] 40 mg PO BEDTIME 10/13/19 [History] Spironolactone [Aldactone] 50 mg PO DAILY 10/13/19 [History] metFORMIN HCl [Metformin HCl ER] 1,000 mg PO BID 10/13/19 [History] polyethylene glycoL 3350 [MiraLAX] 17 gm PO DAILY 10/13/19 [History] Furosemide 40 mg PO DAILY 12/30/19 [History] Gabapentin [Neurontin] 600 mg PO BID 12/30/19 [History] Alogliptin Benzoate [Alogliptin] 25 mg PO DAILY 01/27/20 [History] Meloxicam 15 mg PO WITHBREAKFAST 01/27/20 [History] Gabapentin [Neurontin] 300 mg PO 1200,1800 01/31/20 [History] Azithromycin [Zithromax] 500 mg PO Q24H 2 Days #2 tablet 03/03/20 [Rx] Insulin Glarg,Human.Rec.Analog [Lantus Solostar] 30 unit SUBCUT BID #1 box 03/03 [Rx] methylPREDNISolone [Medrol Dose Pack] 4 mg PO DAILY #1 dospk 03/03/20 [Rx] predniSONE [Prednisone] 20 mg PO DAILY 12 Days #24 tablet 03/03/20 [Rx] Oxygen Therapy Mode: Nasal Cannula Oxygen Flow Rate (L/min): 2 Patient Handouts: Chronic Obstructive Pulmonary Disease Exacerbation, Easy-to- Read, Azithromycin tablets, Methylprednisolone tablets, Prednisone tablets Referrals: [facility] [Outside] Joel Jose MD [Resident] - 03/15/20 2:00 pm Greg Israel [Ordering Only Provider] - 03/15/20 2:00 pm - Discharge Summary/Plan Comment DC Time >30 min.: No - Patient Data Vitals - Most Recent: Last Vital Signs Temp 97.7 F 03/03/20 07:36 Pulse 90 03/03/20 08:10 Resp 18 03/03/20 07:36 BP 132/62 03/03/20 08:10 Pulse Ox 94 L 03/03/20 07:36 Weight - Most Recent: 108.5 kg I&O - Last 24 hours: Intake & Output 03/02/20 03/03/20 03/03/20 22:59 06:59 14:59 Intake Total 680 500 Output Total 0 600 Balance 680 -100 Lab Results - Last 24 hrs: Laboratory Results - last 24 hr 03/02/20 03/02/20 03/02/20 Range/Units 12:00 13:53 17:48 WBC (4.0-11.0) K/uL RBC (4.50-5.90) M/uL Hgb (13.0-17.0) g/dL Hct (38.0-50.0) % MCV (80.0-98.0) fL MCH (27.0-32.0) pg MCHC (31.0-37.0) g/dL RDW Std Deviation (28.0-62.0) fl RDW Coeff of Rocco (11.0-15.0) % Plt Count (150-400) K/uL MPV (7.40-12.00) fL Neut % (Auto) (48.0-80.0) % Lymph % (Auto) (16.0-40.0) % Rains % (Auto) (0.0-15.0) % Eos % (Auto) (0.0-7.0) % Baso % (Auto) (0.0-1.5) % Neut # (Auto) (1.4-5.7) K/uL Lymph # (Auto) (0.6-2.4) K/uL Rains # (Auto) (0.0-0.8) K/uL Eos # (Auto) (0.0-0.7) K/uL Baso # (Auto) (0.0-0.1) K/uL Nucleated RBC % /100WBC Nucleated RBCs # K/uL Sodium (136-148) mmol/L Potassium (3.5-5.1) mmol/L Chloride (98-107) mmol/L Carbon Dioxide (21.0-32.0) mmol/L BUN (7.0-18.0) mg/dL Creatinine (0.8-1.3) mg/dL Est Cr Clr Drug Dosing mL/min Estimated GFR (MDRD) ml/min Glucose (74-106) mg/dL POC Glucose 434 H 412 H 292 H (60-110) mg/dL Calcium (8.5-10.1) mg/dL Total Bilirubin (0.2-1.0) mg/dL AST (15-37) IU/L ALT (14-63) IU/L Alkaline Phosphatase (46-116) U/L Total Protein (6.4-8.2) g/dL Albumin (3.4-5.0) g/dL Globulin (2.6-4.0) g/dL Albumin/Globulin Ratio (0.9-1.6) 03/02/20 03/03/20 03/03/20 Range/Units 20:28 05:00 05:00 WBC 6.53 (4.0-11.0) K/uL RBC 4.02 L (4.50-5.90) M/uL Hgb 11.7 L (13.0-17.0) g/dL Hct 38.2 (38.0-50.0) % MCV 95.0 (80.0-98.0) fL MCH 29.1 (27.0-32.0) pg MCHC 30.6 L (31.0-37.0) g/dL RDW Std Deviation 51.3 (28.0-62.0) fl RDW Coeff of Rocco 15 (11.0-15.0) % Plt Count 189 (150-400) K/uL MPV 10.10 (7.40-12.00) fL Neut % (Auto) 86.2 H (48.0-80.0) % Lymph % (Auto) 12.1 L (16.0-40.0) % Rains % (Auto) 1.7 (0.0-15.0) % Eos % (Auto) 0.0 (0.0-7.0) % Baso % (Auto) 0.0 (0.0-1.5) % Neut # (Auto) 5.6 (1.4-5.7) K/uL Lymph # (Auto) 0.8 (0.6-2.4) K/uL Rains # (Auto) 0.1 (0.0-0.8) K/uL Eos # (Auto) 0.0 (0.0-0.7) K/uL Baso # (Auto) 0.0 (0.0-0.1) K/uL Nucleated RBC % 0.0 /100WBC Nucleated RBCs # 0 K/uL Sodium 140 (136-148) mmol/L Potassium 5.0 (3.5-5.1) mmol/L Chloride 101 (98-107) mmol/L Carbon Dioxide 35.7 H (21.0-32.0) mmol/L BUN 33 H (7.0-18.0) mg/dL Creatinine 0.9 (0.8-1.3) mg/dL Est Cr Clr Drug Dosing 70.02 mL/min Estimated GFR (MDRD) > 60.0 ml/min Glucose 324 H (74-106) mg/dL POC Glucose 311 H (60-110) mg/dL Calcium 8.6 (8.5-10.1) mg/dL Total Bilirubin 0.3 (0.2-1.0) mg/dL AST 11 L (15-37) IU/L ALT 24 (14-63) IU/L Alkaline Phosphatase 58 (46-116) U/L Total Protein 5.9 L (6.4-8.2) g/dL Albumin 2.5 L (3.4-5.0) g/dL Globulin 3.4 (2.6-4.0) g/dL Albumin/Globulin Ratio 0.7 L (0.9-1.6) 03/03/20 03/03/20 Range/Units 06:52 08:15 WBC (4.0-11.0) K/uL RBC (4.50-5.90) M/uL Hgb (13.0-17.0) g/dL Hct (38.0-50.0) % MCV (80.0-98.0) fL MCH (27.0-32.0) pg MCHC (31.0-37.0) g/dL RDW Std Deviation (28.0-62.0) fl RDW Coeff of Rocco (11.0-15.0) % Plt Count (150-400) K/uL MPV (7.40-12.00) fL Neut % (Auto) (48.0-80.0) % Lymph % (Auto) (16.0-40.0) % Rains % (Auto) (0.0-15.0) % Eos % (Auto) (0.0-7.0) % Baso % (Auto) (0.0-1.5) % Neut # (Auto) (1.4-5.7) K/uL Lymph # (Auto) (0.6-2.4) K/uL Rains # (Auto) (0.0-0.8) K/uL Eos # (Auto) (0.0-0.7) K/uL Baso # (Auto) (0.0-0.1) K/uL Nucleated RBC % /100WBC Nucleated RBCs # K/uL Sodium (136-148) mmol/L Potassium (3.5-5.1) mmol/L Chloride (98-107) mmol/L Carbon Dioxide (21.0-32.0) mmol/L BUN (7.0-18.0) mg/dL Creatinine (0.8-1.3) mg/dL Est Cr Clr Drug Dosing mL/min Estimated GFR (MDRD) ml/min Glucose (74-106) mg/dL POC Glucose 301 H 406 H (60-110) mg/dL Calcium (8.5-10.1) mg/dL Total Bilirubin (0.2-1.0) mg/dL AST (15-37) IU/L ALT (14-63) IU/L Alkaline Phosphatase (46-116) U/L Total Protein (6.4-8.2) g/dL Albumin (3.4-5.0) g/dL Globulin (2.6-4.0) g/dL Albumin/Globulin Ratio (0.9-1.6) CHARLENE Results - Last 24 hrs: Microbiology 02/29/20 22:13 Coronavirus RNA (PCR) - Final Nasopharyngeal Swab Med Orders - Current: Current Medications Hydrocodone Bitart/Acetaminophen ([place] 325-10 Mg) 1 tab PO TID PRN PRN Reason: Pain Last Admin: 03/03/20 09:46 Dose: 1 tab Aspirin (Halfprin) 81 mg PO DAILY [facility] Last Admin: 03/03/20 08:10 Dose: 81 mg Azithromycin (Zithromax) 500 mg PO Q24H [facility] Last Admin: 03/03/20 08:34 Dose: 500 mg Citalopram Hydrobromide (Celexa) 10 mg PO DAILY [facility] Last Admin: 03/03/20 08:10 Dose: 10 mg Clopidogrel Bisulfate (Plavix) 75 mg PO DAILY [facility] Last Admin: 03/03/20 08:10 Dose: 75 mg Furosemide (Lasix) 40 mg PO DAILY [facility] Last Admin: 03/03/20 08:10 Dose: 40 mg Gabapentin (Neurontin) 300 mg PO 1200,1800 [facility] Last Admin: 03/02/20 17:50 Dose: 300 mg Gabapentin (Neurontin) 600 mg PO BID [facility] Last Admin: 03/03/20 08:10 Dose: 600 mg Heparin Sodium (Porcine) (Heparin Sodium) 5,000 units SUBCUT Q8H [facility] Last Admin: 03/03/20 07:33 Dose: 5,000 units Insulin Aspart (Novolog) 0 unit SUBCUT TIDAC [facility]; Protocol Last Admin: 03/03/20 07:32 Dose: 12 units Insulin Glargine (Lantus Solostar) 30 units SUBCUT BID [facility] Last Admin: 03/03/20 08:17 Dose: 30 units Methylprednisolone Sodium Succinate (Solu-Medrol) 125 mg IVPUSH Q24H [facility] Last Admin: 03/02/20 20:42 Dose: 125 mg Metoprolol Tartrate (Lopressor) 50 mg PO BID [facility] Last Admin: 03/03/20 08:10 Dose: 50 mg Pantoprazole Sodium (Protonix) 40 mg PO ACBREAKFAST [facility] Last Admin: 03/03/20 06:44 Dose: 40 mg Diclofenac Sodium [ (Voltaren 1% Gel]) 0 each TOP QID PRN PRN Reason: pain and inflammation Last Admin: 03/03/20 08:41 Dose: 1 each Albuterol 8 Gm (Inhaler) 0 each INH Q4H [facility] Last Admin: 03/03/20 09:47 Dose: 1 each Budesonide/Formoterol Fumarate [Symbicort 160-4.5 Mcg Inhaler] 0 each INH BID [facility] Last Admin: 03/03/20 08:19 Dose: 2 each Polyethylene Glycol (Miralax) 17 gm PO DAILY [facility] Last Admin: 03/03/20 08:09 Dose: 17 gm Rosuvastatin Calcium (Crestor) 40 mg PO BEDTIME [facility] Last Admin: 03/02/20 20:41 Dose: 40 mg Sodium Chloride (Saline Flush) 10 ml FLUSH ASDIRECTED PRN PRN Reason: Keep Vein Open Sodium Chloride (Saline Flush) 2.5 ml FLUSH ASDIRECTED PRN PRN Reason: Keep Vein Open Spironolactone (Aldactone) 50 mg PO DAILY [facility] Last Admin: 03/03/20 08:10 Dose: 50 mg Discontinued Medications Hydrocodone Bitart/Acetaminophen ([place] 325-10 Mg) 1 tab PO ONETIME ONE Stop: 02/29/20 22:01 Last Admin: 02/29/20 22:07 Dose: 1 tab Albuterol/Ipratropium (Combivent Respimat) 0 gm INH Q4H PRN PRN Reason: Dyspnea Azithromycin (Zithromax) 500 mg PO ONETIME ONE Stop: 02/29/20 21:12 Last Admin: 02/29/20 21:27 Dose: 500 mg Magnesium Sulfate 2 gm/ Premix 50 mls @ 50 mls/hr IV ONETIME ONE Stop: 02/29/20 22:09 Last Admin: 02/29/20 21:27 Dose: 50 mls/hr Ceftriaxone Sodium 1 gm/ (Sodium Chloride) 50 mls @ 100 mls/hr IV Q24H [facility] Last Admin: 03/01/20 00:22 Dose: 100 mls/hr Insulin Glargine (Lantus Solostar) 28 units SUBCUT BID [facility] Last Admin: 03/02/20 09:22 Dose: 28 units Methylprednisolone Sodium Succinate (Solu-Medrol) 125 mg IVPUSH ONETIME ONE Stop: 02/29/20 21:31 Last Admin: 02/29/20 21:30 Dose: 125 mg <Myron Singh - Last Filed: 03/04/20 20:10> Discharge Summary - Referral to Home Health Primary Care Physician: PCP None - Patient Data Vitals - Most Recent: Last Vital Signs Temp 36.5 C 03/03/20 07:36 Pulse 90 03/03/20 08:10 Resp 18 03/03/20 07:36 BP 132/62 03/03/20 08:10 Pulse Ox 94 L 03/03/20 07:36 Med Orders - Current: Current Medications Discontinued Medications Hydrocodone Bitart/Acetaminophen ([place] 325-10 Mg) 1 tab PO ONETIME ONE Stop: 02/29/20 22:01 Last Admin: 02/29/20 22:07 Dose: 1 tab Hydrocodone Bitart/Acetaminophen ([place] 325-10 Mg) 1 tab PO TID PRN PRN Reason: Pain Last Admin: 03/03/20 09:46 Dose: 1 tab Albuterol/Ipratropium (Combivent Respimat) 0 gm INH Q4H PRN PRN Reason: Dyspnea Aspirin (Halfprin) 81 mg PO DAILY [facility] Last Admin: 03/03/20 08:10 Dose: 81 mg Azithromycin (Zithromax) 500 mg PO ONETIME ONE Stop: 02/29/20 21:12 Last Admin: 02/29/20 21:27 Dose: 500 mg Azithromycin (Zithromax) 500 mg PO Q24H [facility] Last Admin: 03/03/20 08:34 Dose: 500 mg Citalopram Hydrobromide (Celexa) 10 mg PO DAILY [facility] Last Admin: 03/03/20 08:10 Dose: 10 mg Clopidogrel Bisulfate (Plavix) 75 mg PO DAILY [facility] Last Admin: 03/03/20 08:10 Dose: 75 mg Furosemide (Lasix) 40 mg PO DAILY [facility] Last Admin: 03/03/20 08:10 Dose: 40 mg Gabapentin (Neurontin) 300 mg PO 1200,1800 [facility] Last Admin: 03/02/20 17:50 Dose: 300 mg Gabapentin (Neurontin) 600 mg PO BID [facility] Last Admin: 03/03/20 08:10 Dose: 600 mg Heparin Sodium (Porcine) (Heparin Sodium) 5,000 units SUBCUT Q8H [facility] Last Admin: 03/03/20 07:33 Dose: 5,000 units Magnesium Sulfate 2 gm/ Premix 50 mls @ 50 mls/hr IV ONETIME ONE Stop: 02/29/20 22:09 Last Admin: 02/29/20 21:27 Dose: 50 mls/hr Ceftriaxone Sodium 1 gm/ (Sodium Chloride) 50 mls @ 100 mls/hr IV Q24H [facility] Last Admin: 03/01/20 00:22 Dose: 100 mls/hr Insulin Aspart (Novolog) 0 unit SUBCUT TIDAC [facility]; Protocol Last Admin: 03/03/20 11:48 Dose: Not Given Insulin Glargine (Lantus Solostar) 28 units SUBCUT BID [facility] Last Admin: 03/02/20 09:22 Dose: 28 units Insulin Glargine (Lantus Solostar) 30 units SUBCUT BID [facility] Last Admin: 03/03/20 08:17 Dose: 30 units Methylprednisolone Sodium Succinate (Solu-Medrol) 125 mg IVPUSH ONETIME ONE Stop: 02/29/20 21:31 Last Admin: 02/29/20 21:30 Dose: 125 mg Methylprednisolone Sodium Succinate (Solu-Medrol) 125 mg IVPUSH Q24H [facility] Last Admin: 03/02/20 20:42 Dose: 125 mg Metoprolol Tartrate (Lopressor) 50 mg PO BID [facility] Last Admin: 03/03/20 08:10 Dose: 50 mg Pantoprazole Sodium (Protonix) 40 mg PO ACBREAKFAST [facility] Last Admin: 03/03/20 06:44 Dose: 40 mg Diclofenac Sodium [ (Voltaren 1% Gel]) 0 each TOP QID PRN PRN Reason: pain and inflammation Last Admin: 03/03/20 08:41 Dose: 1 each Albuterol 8 Gm (Inhaler) 0 each INH Q4H [facility] Last Admin: 03/03/20 09:47 Dose: 1 each Budesonide/Formoterol Fumarate [Symbicort 160-4.5 Mcg Inhaler] 0 each INH BID [facility] Last Admin: 03/03/20 08:19 Dose: 2 each Polyethylene Glycol (Miralax) 17 gm PO DAILY [facility] Last Admin: 03/03/20 08:09 Dose: 17 gm Rosuvastatin Calcium (Crestor) 40 mg PO BEDTIME [facility] Last Admin: 03/02/20 20:41 Dose: 40 mg Sodium Chloride (Saline Flush) 10 ml FLUSH ASDIRECTED PRN PRN Reason: Keep Vein Open Sodium Chloride (Saline Flush) 2.5 ml FLUSH ASDIRECTED PRN PRN Reason: Keep Vein Open Spironolactone (Aldactone) 50 mg PO DAILY [facility] Last Admin: 03/03/20 08:10 Dose: 50 mg - Free Text/Narrative Note: I have seen and examined the patient. I have discussed findings and treatment plan with resident. I agree with the assessment and plan as outlined in the following note.
== END 2020-03-03 11:10 | disposition home or self-care (01) ==
LOC: MW.ED 20:52 → MW.MS 22:13 → MW.ICU 22:34
PROVIDERS: ADMIT Internal Medicine; ATTEND Internal Medicine
DX: J44.1 Chronic obstructive pulmonary disease with (acute) exacerbation (principal); J96.21 Acute and chronic respiratory failure with hypoxia; I11.0 Hypertensive heart disease with heart failure; I50.9 Heart failure, unspecified; E87.5 Hyperkalemia; F32.9 Major depressive disorder, single episode, unspecified; F41.9 Anxiety disorder, unspecified; E11.9 Type 2 diabetes mellitus without complications; I25.2 Old myocardial infarction; Z79.4 Long term (current) use of insulin; Z79.82 Long term (current) use of aspirin; Z79.899 Other long term (current) drug therapy; Z87.891 Personal history of nicotine dependence; Z88.8 Allergy status to other drugs, medicaments and biological substances; Z91.041 Radiographic dye allergy status; Z95.5 Presence of coronary angioplasty implant and graft; Z79.51 Long term (current) use of inhaled steroids; Z20.828 Contact with and (suspected) exposure to other viral communicable diseases
CPT/HCPCS: 36415; 71045; 80048; 80053; 82803; 82962; 83735; 83880; 84100; 84132; 84484; 85025; 87635; 87804; 93005; 94660; 96365; 96367; 96372; 96375; 96376; 99285; A9270; G0378; J0696; J1644; J1815; J2930; J3475; J7050; U0002

== ENCOUNTER 2020-05-10 15:05 | Observation (INO) | payer MEDICARE, OTHER ==
--- NOTE | 2020-05-10 15:35 | EDM.PDOC ---
ED HPI GENERAL MEDICAL PROBLEM - General Chief Complaint: Respiratory Problem Stated Complaint: SICK Time Seen by Provider: 05/10/20 15:12 Source of Information: Reports: Patient History Limitations: Reports: No Limitations - History of Present Illness INITIAL COMMENTS - FREE TEXT/NARRATIVE: HISTORY AND PHYSICAL: History of present illness: Patient is a 80-year-old male who presents to the emergency room today with complaints of increased shortness of breath x1 week. He does have a history of COPD and is oxygen dependent at 2 L per nasal cannula. Over the past 1 week he has progressively become more and more short of breath, worse with physical activity. Patient also has a past medical history of NC with stent placement, congestive heart failure, hypertension and type 2 diabetes. Patient denies any fever, chills, headache, change in vision, syncope or near syncope. Denies any chest pain, back pain, abdominal pain, nausea, vomiting, diarrhea, constipation or dysuria. Has not noted any blood in urine or stool. Patient has been eating and drinking appropriately. Review of systems: As per history of present illness and below otherwise all systems reviewed and negative. Past medical history: As per history of present illness and as reviewed below otherwise noncontributory. Surgical history: As per history of present illness and as reviewed below otherwise noncontributory. Social history: See social history for further information Family history: As per history of present illness and as reviewed below otherwise noncontributory. Physical exam: General: Chronically ill-appearing 80-year-old male. Alert and oriented. But short of breath with conversation. Vital signs have been reviewed by me. HEENT: Atraumatic, normocephalic, pupils equal and reactive bilaterally, negative for conjunctival pallor or scleral icterus, mucous membranes moist, TMs normal bilaterally, throat clear, neck supple, nontender, trachea midline. No drooling or trismus noted. No meningeal signs. No hot potato voice noted. Lungs: Diminished lung sounds throughout with poor air exchange, breath sounds equal bilaterally, chest nontender. Becomes short of breath with talking and physical activity. Tachypneic Heart: S1S2, tachycardic with regular rhythm without overt murmur Abdomen: Soft, nondistended, nontender. Negative for masses or hepatosplenomegaly. Negative for costovertebral tenderness. Pelvis: Stable nontender. Skin: Multiple cysts bruising noted to upper and lower extremities, various stages of healing. Otherwise skin is intact, warm, dry. No lesions or rashes noted. Extremities: Atraumatic, moves all extremities per self without difficulty or deficits, negative for cords or calf pain. Neurovascular unremarkable. Neuro: Awake, alert, oriented. Cranial nerves II through XII unremarkable. Cerebellum unremarkable. Motor and sensory unremarkable throughout. Exam nonfocal. Notes: Chest x-ray shows diffuse increased density with in both sides of the chest. Radiology believes this is fairly stable from previous exam. No acute findings are noted. No significant findings are noted on lab work. Patient does get short of breath even with moving around in the bed. He states he is not well enough to go home. Dr Tineo, hospitalist on-call was consulted on this case. She is agreeable to keeping this patient for observation with telemetry. Diagnostics: CBC, CMP, chest x-ray, troponin, COVID, ABG Therapeutics: Solu-Medrol, DuoNeb Impression: COPD exacerbation. Plan: Observation admission to [facility] with telemetry Definitive disposition and diagnosis as appropriate pending reevaluation and review of above. back Pain Score (Numeric/FACES): 4 - Related Data Allergies Allergy/AdvReac Type Severity Reaction Status Date / Time atorvastatin Allergy Other Verified 05/10/20 15:33 bupropion [From Wellbutrin] Allergy Other Verified 05/10/20 15:33 duloxetine HCl Allergy Rash Verified 05/10/20 15:33 [From Cymbalta] Iodinated Contrast Media Allergy Other Verified 05/10/20 15:33 meloxicam Allergy Other Verified 05/10/20 15:33 naproxen Allergy Other Verified 05/10/20 15:33 paroxetine Allergy Other Verified 05/10/20 15:33 sertraline HCl [From Zoloft] Allergy Rash Verified 05/10/20 15:33 venlafaxine [From Effexor] Allergy oth Verified 05/10/20 15:33 Home Meds: Home Meds Albuterol Sulfate [Albuterol Sulfate Hfa] 2 inh IH Q6H PRN 10/13/19 [History] Albuterol/Ipratropium [DuoNeb 3.0-0.5 MG/3 ML] 3 ml NEB Q6H 10/13/19 [History] Aspirin [Ecotrin EC] 81 mg PO DAILY 10/13/19 [History] Budesonide/Formoterol Fumarate [Symbicort 160-4.5 Mcg Inhaler] 2 inh IH Q12H [History] Citalopram [Citalopram HBr] 10 mg PO DAILY 10/13/19 [History] Clopidogrel [Plavix] 75 mg PO DAILY 10/13/19 [History] Diclofenac Sodium [Voltaren 1% Gel] 4 gm TOP QID PRN MDD total body dose 32gm max 10/13/19 [History] Hydrocodone/Acetaminophen [[place] 10-325 Tablet] 10 - 325 mg PO TID PRN 10/13/19 [History] Insulin Aspart [NovoLOG] 15 unit SUBCUT WITHDINNER 10/13/19 [History] Lidocaine 5% [Lidoderm 5%] 2 patch TD .ON 12 HR, OFF 12 HR 10/13/19 [History] Metoprolol Tartrate 50 mg PO BID 10/13/19 [History] [place]-3/DHA/Epa/Fish Oil [Fish Oil 1,000 mg Softgel] 1,000 mg PO BID 10/13/19 [ History] Pantoprazole [ProTONIX] 40 mg PO ACBREAKFAST 10/13/19 [History] Rosuvastatin Calcium [Crestor] 40 mg PO BEDTIME 10/13/19 [History] Spironolactone [Aldactone] 50 mg PO DAILY 10/13/19 [History] metFORMIN HCl [Metformin HCl ER] 1,000 mg PO BID 10/13/19 [History] polyethylene glycoL 3350 [MiraLAX] 17 gm PO DAILY 10/13/19 [History] Furosemide 40 mg PO DAILY 12/30/19 [History] Gabapentin [Neurontin] 600 mg PO BID 12/30/19 [History] Alogliptin Benzoate [Alogliptin] 25 mg PO DAILY 01/27/20 [History] Meloxicam 15 mg PO WITHBREAKFAST 01/27/20 [History] Gabapentin [Neurontin] 300 mg PO 1200,1800 01/31/20 [History] Insulin Glarg,Human.Rec.Analog [Lantus Solostar] 30 unit SUBCUT BID #1 box 03/03 [Rx] methylPREDNISolone [Medrol Dose Pack] 4 mg PO DAILY #1 dospk 03/03/20 [Rx] predniSONE [Prednisone] 20 mg PO DAILY 12 Days #24 tablet 03/03/20 [Rx] Non-Formulary Medication [NF Drug] 1 each PO DAILY 05/10/20 [History] Past Medical History HEENT History: Reports: None Other HEENT History: glasses and hearing aides Cardiovascular History: Reports: CAD, Heart Failure, High Cholesterol, Hypertension, NC, Stents Respiratory History: Reports: Asthma, COPD Other Respiratory History: states may need cpap but does not have one. Gastrointestinal History: Reports: Diverticulosis, Gastritis, GERD Genitourinary History: Reports: None Musculoskeletal History: Reports: Arthritis, Back Pain, Chronic Neurological History: Reports: None Psychiatric History: Reports: Anxiety, Depression, Panic Attack, PTSD Endocrine/Metabolic History: Reports: Diabetes, Type II Insulin Pump Model and Wire Drawing Setter: None Hematologic History: Reports: None Immunologic History: Reports: None Oncologic (Cancer) History: Reports: None Dermatologic History: Reports: None - Infectious Disease History Infectious Disease History: Reports: None - Past Surgical History Head Surgeries/Procedures: Reports: None HEENT Surgical History: Reports: None Cardiovascular Surgical History: Reports: Other (See Below) Other Cardiovascular Surgeries/Procedures: Respiratory Surgical History: Reports: None Other Respiratory Surgeries/Procedures: on 2L/min @ home GI Surgical History: Reports: Colonoscopy Male Surgical History: Reports: None Endocrine Surgical History: Reports: None Neurological Surgical History: Reports: None Musculoskeletal Surgical History: Reports: None Oncologic Surgical History: Reports: None Dermatological Surgical History: Reports: None Social & Family History - Family History Family Medical History: Noncontributory - Caffeine Use Caffeine Use: Reports: Coffee Caffeine Use Comment: Rarely ED ROS GENERAL - Review of Systems Review Of Systems: Comprehensive ROS is negative, except as noted in HPI. ED EXAM, GENERAL - Physical Exam Exam: See Below (See dictation) Course - Vital Signs Last Recorded V/S: Last Vital Signs Temp 98.7 F 05/10/20 15:37 Pulse 118 H 05/10/20 15:37 Resp 30 H 05/10/20 15:37 BP 144/91 H 05/10/20 15:37 Pulse Ox 99 05/10/20 15:37 - Orders/Labs/Meds Orders: Active Orders 24 hr Category Date Time Status Admission Status [Patient Status] [ADT] Stat ADT 05/10/20 18:17 Active EKG Documentation Completion [RC] STAT Care 05/10/20 15:31 Active RT Aerosol Therapy [RC] ASDIRECTED Care 05/10/20 15:37 Active B-TYPE NATRIURETIC PEPTIDE,BNP [CHEM] Stat Lab 05/10/20 16:07 Received CULTURE BLOOD [BC] Stat Lab 05/10/20 16:07 Received CULTURE BLOOD [BC] Stat Lab 05/10/20 16:16 Received Blood Culture x2 Reflex Set [OM.PC] Stat Oth 05/10/20 15:31 Ordered Labs: Laboratory Tests 05/10/20 05/10/20 05/10/20 Range/Units 16:07 16:07 16:07 WBC 9.02 (4.0-11.0) K/uL RBC 4.16 L (4.50-5.90) M/uL Hgb 12.1 L (13.0-17.0) g/dL Hct 39.7 (38.0-50.0) % MCV 95.4 (80.0-98.0) fL MCH 29.1 (27.0-32.0) pg MCHC 30.5 L (31.0-37.0) g/dL RDW Std Deviation 52.5 (28.0-62.0) fl RDW Coeff of [place] 15 (11.0-15.0) % Plt Count 214 (150-400) K/uL MPV 10.10 (7.40-12.00) fL Neut % (Auto) 72.6 (48.0-80.0) % Lymph % (Auto) 18.3 (16.0-40.0) % [place] % (Auto) 6.7 (0.0-15.0) % Eos % (Auto) 2.1 (0.0-7.0) % Baso % (Auto) 0.3 (0.0-1.5) % Neut # (Auto) 6.6 H (1.4-5.7) K/uL Lymph # (Auto) 1.7 (0.6-2.4) K/uL [place] # (Auto) 0.6 (0.0-0.8) K/uL Eos # (Auto) 0.2 (0.0-0.7) K/uL Baso # (Auto) 0.0 (0.0-0.1) K/uL Nucleated RBC % 0.0 /100WBC Nucleated RBCs # 0 K/uL ABG pH (7.35-7.45) ABG pCO2 (35-45) mmHG ABG pO2 (75-100) mmHG ABG HCO3 (22-26) mEq/L ABG Total CO2 ABG Base Excess (-2.0-2.0) Lactate 1.1 (0.20-2.00) mmol/L Sodium 141 (136-148) mmol/L Potassium 4.6 (3.5-5.1) mmol/L Chloride 99 (98-107) mmol/L Carbon Dioxide 33.7 H (21.0-32.0) mmol/L BUN 24 H (7.0-18.0) mg/dL Creatinine 0.9 (0.8-1.3) mg/dL Est Cr Clr Drug Dosing 68.72 mL/min Estimated GFR (MDRD) > 60.0 ml/min Glucose 164 H (74-106) mg/dL Calcium 9.1 (8.5-10.1) mg/dL Total Bilirubin 0.3 (0.2-1.0) mg/dL AST 20 (15-37) IU/L ALT 15 (14-63) IU/L Alkaline Phosphatase 72 (46-116) U/L Troponin I < 0.050 (0.000-0.056) ng/mL Total Protein 6.9 (6.4-8.2) g/dL Albumin 3.2 L (3.4-5.0) g/dL Globulin 3.7 (2.6-4.0) g/dL Albumin/Globulin Ratio 0.9 (0.9-1.6) SARS-CoV-2 RNA (RT-PCR) (NEGATIVE) 05/10/20 05/10/20 Range/Units 16:32 18:05 WBC (4.0-11.0) K/uL RBC (4.50-5.90) M/uL Hgb (13.0-17.0) g/dL Hct (38.0-50.0) % MCV (80.0-98.0) fL MCH (27.0-32.0) pg MCHC (31.0-37.0) g/dL RDW Std Deviation (28.0-62.0) fl RDW Coeff of [place] (11.0-15.0) % Plt Count (150-400) K/uL MPV (7.40-12.00) fL Neut % (Auto) (48.0-80.0) % Lymph % (Auto) (16.0-40.0) % [place] % (Auto) (0.0-15.0) % Eos % (Auto) (0.0-7.0) % Baso % (Auto) (0.0-1.5) % Neut # (Auto) (1.4-5.7) K/uL Lymph # (Auto) (0.6-2.4) K/uL [place] # (Auto) (0.0-0.8) K/uL Eos # (Auto) (0.0-0.7) K/uL Baso # (Auto) (0.0-0.1) K/uL Nucleated RBC % /100WBC Nucleated RBCs # K/uL ABG pH 7.341 L (7.35-7.45) ABG pCO2 66 H (35-45) mmHG ABG pO2 100 (75-100) mmHG ABG HCO3 35 H (22-26) mEq/L ABG Total CO2 32.5 ABG Base Excess 7.5 H (-2.0-2.0) Lactate (0.20-2.00) mmol/L Sodium (136-148) mmol/L Potassium (3.5-5.1) mmol/L Chloride (98-107) mmol/L Carbon Dioxide (21.0-32.0) mmol/L BUN (7.0-18.0) mg/dL Creatinine (0.8-1.3) mg/dL Est Cr Clr Drug Dosing mL/min Estimated GFR (MDRD) ml/min Glucose (74-106) mg/dL Calcium (8.5-10.1) mg/dL Total Bilirubin (0.2-1.0) mg/dL AST (15-37) IU/L ALT (14-63) IU/L Alkaline Phosphatase (46-116) U/L Troponin I (0.000-0.056) ng/mL Total Protein (6.4-8.2) g/dL Albumin (3.4-5.0) g/dL Globulin (2.6-4.0) g/dL Albumin/Globulin Ratio (0.9-1.6) SARS-CoV-2 RNA (RT-PCR) NEGATIVE (NEGATIVE) Meds: Medications Discontinued Medications Generic Name Dose Route Start Last Admin Trade Name Freq PRN Reason Stop Dose Admin Albuterol/Ipratropium 3 ml 05/10/20 15:37 05/10/20 15:53 Duoneb 3.0-0.5 Mg/3 Ml NEB 05/10/20 15:38 3 ml ONETIME ONE Administration Methylprednisolone Sodium Succinate 125 mg 05/10/20 15:46 05/10/20 16:25 Solu-Medrol IVPUSH 05/10/20 15:47 125 mg ONETIME ONE Administration Departure - Departure Time of Disposition: 18:50 Disposition: Refer to Observation Clinical Impression: COPD exacerbation - Discharge Information Referrals: PCP,Unobtain [Primary Care Provider] - Forms: ED Department Discharge Sepsis Event Note (ED) - Focused Exam Vital Signs: Vital Signs Temp Pulse Resp BP Pulse Ox 05/10/20 15:37 98.7 F 118 H 30 H 144/91 H 99 - My Orders Last 24 Hours: My Active Orders 05/10/20 15:31 EKG Documentation Completion [RC] STAT Blood Culture x2 Reflex Set [OM.PC] Stat 05/10/20 15:37 RT Aerosol Therapy [RC] ASDIRECTED 05/10/20 16:07 B-TYPE NATRIURETIC PEPTIDE,BNP [CHEM] Stat CULTURE BLOOD [BC] Stat 05/10/20 16:16 CULTURE BLOOD [BC] Stat 05/10/20 18:17 Admission Status [Patient Status] [ADT] Stat - Assessment/Plan Last 24 Hours: My Active Orders 05/10/20 15:31 EKG Documentation Completion [RC] STAT Blood Culture x2 Reflex Set [OM.PC] Stat 05/10/20 15:37 RT Aerosol Therapy [RC] ASDIRECTED 05/10/20 16:07 B-TYPE NATRIURETIC PEPTIDE,BNP [CHEM] Stat CULTURE BLOOD [BC] Stat 05/10/20 16:16 CULTURE BLOOD [BC] Stat 05/10/20 18:17 Admission Status [Patient Status] [ADT] Stat
[2020-05-10] MEDS ORDERED: Albuterol/Ipratropium 3.0-0.5 MG/3 ML Neb Soln NEB ONE (15:37)
[2020-05-10] MEDS ORDERED: methylPREDNISolone Sodium Succinate 125 MG/2 ML SDV IVPUSH ONE (15:46)
--- NOTE | 2020-05-10 17:02 | CR ---
Chest: Portable view of the chest was obtained. Comparison: Prior chest x-ray of 02/29/20. Diffuse increased density within both sides of the chest are seen. Findings are fairly stable from previous exam. Heart size is normal. Upper mediastinum is stable. Bony structures are grossly intact. Impression: 1. Chest x-ray appears fairly stable from previous study. 2. Nothing acute is definitely appreciated. Diagnostic code #2 This report was dictated in MDT
[2020-05-10 18:05] LABS: BLOOD UREA NITROGEN,BUN 24 mg/dL (7.0-18.0); CARBON DIOXIDE,CO2 33.7 mmol/L (21.0-32.0); CHLORIDE,CL 99 mmol/L (98-107); GLUCOSE RANDOM 164 mg/dL (74-106); POTASSIUM,K 4.6 mmol/L (3.5-5.1); SODIUM,NA 141 mmol/L (136-148)
[2020-05-10] MEDS ORDERED: Ondansetron 4 MG/2 ML SDV IVPUSH PRN (19:32)
[2020-05-10] MEDS ORDERED: Morphine 10 MG/ML Syringe IVPUSH PRN (19:32)
[2020-05-10] MEDS ORDERED: DICLOFENAC SODIUM 4 GM TOP PRN (19:42)
[2020-05-10] MEDS ORDERED: HYDROCODONE PO PRN (19:42)
[2020-05-10] MEDS ORDERED: ACETAMINOPHEN PO PRN (19:42)
--- NOTE | 2020-05-10 19:42 | PCM.HP.2 ---
H&P History of Present Illness - General Date of Service: 05/10/20 Admit Problem/Dx: Admission Diagnosis/Problem Admission Diagnosis/Problem COPD, Moderate chronic obstructive pulmonary disease - History of Present Illness Initial Comments - Free Text/Narative: Patient is a 80-year-old male with PMH of COPD, CAD s/p stent, HTN, DM on home O2 2L NC who presents to the emergency room today with complaints of increased shortness of breath x1 week. Patient states that over last few days he has been getting progressivelt SOB and he also has a cough, Patient denies any fever, chills, headache, change in vision, syncope or near syncope. Denies any chest pain, back pain, abdominal pain, nausea, vomiting, diarrhea, constipation or dysuria. Has not noted any blood in urine or stool. Patient has been eating and drinking appropriately. In the ER CXR was unremarkable, Troponin was negative. ABG showed slight acidosis with permissive hypercapnia, Patient received IV steroids and DuoNebs and was admitted for possible COPD exacerbation. back Pain Score (Numeric/FACES): 4 - Related Data Allergies/Adverse Reactions: Allergies Allergy/AdvReac Type Severity Reaction Status Date / Time atorvastatin Allergy Other Verified 05/10/20 15:33 bupropion [From Wellbutrin] Allergy Other Verified 05/10/20 15:33 duloxetine HCl Allergy Rash Verified 05/10/20 15:33 [From Cymbalta] Iodinated Contrast Media Allergy Other Verified 05/10/20 15:33 meloxicam Allergy Other Verified 05/10/20 15:33 naproxen Allergy Other Verified 05/10/20 15:33 paroxetine Allergy Other Verified 05/10/20 15:33 sertraline HCl [From Zoloft] Allergy Rash Verified 05/10/20 15:33 venlafaxine [From Effexor] Allergy oth Verified 05/10/20 15:33 Home Medications: Home Meds Albuterol Sulfate [Albuterol Sulfate Hfa] 2 inh IH Q6H PRN 10/13/19 [History] Albuterol/Ipratropium [DuoNeb 3.0-0.5 MG/3 ML] 3 ml NEB Q6H 10/13/19 [History] Aspirin [Ecotrin EC] 81 mg PO DAILY 10/13/19 [History] Budesonide/Formoterol Fumarate [Symbicort 160-4.5 Mcg Inhaler] 2 inh IH Q12H [History] Citalopram [Citalopram HBr] 10 mg PO DAILY 10/13/19 [History] Clopidogrel [Plavix] 75 mg PO DAILY 10/13/19 [History] Diclofenac Sodium [Voltaren 1% Gel] 4 gm TOP QID PRN MDD total body dose 32gm max 10/13/19 [History] Hydrocodone/Acetaminophen [[place] 10-325 Tablet] 10 - 325 mg PO TID PRN 10/13/19 [History] Insulin Aspart [NovoLOG] 15 unit SUBCUT WITHDINNER 10/13/19 [History] Lidocaine 5% [Lidoderm 5%] 2 patch TD .ON 12 HR, OFF 12 HR 10/13/19 [History] Metoprolol Tartrate 50 mg PO BID 10/13/19 [History] [place]graham-3/DHA/Epa/Fish Oil [Fish Oil 1,000 mg Softgel] 1,000 mg PO BID 10/13/19 [ History] Pantoprazole [ProTONIX] 40 mg PO ACBREAKFAST 10/13/19 [History] Rosuvastatin Calcium [Crestor] 40 mg PO BEDTIME 10/13/19 [History] Spironolactone [Aldactone] 50 mg PO DAILY 10/13/19 [History] metFORMIN HCl [Metformin HCl ER] 1,000 mg PO BID 10/13/19 [History] polyethylene glycoL 3350 [MiraLAX] 17 gm PO DAILY 10/13/19 [History] Furosemide 40 mg PO DAILY 12/30/19 [History] Gabapentin [Neurontin] 600 mg PO BID 12/30/19 [History] Alogliptin Benzoate [Alogliptin] 25 mg PO DAILY 01/27/20 [History] Meloxicam 15 mg PO WITHBREAKFAST 01/27/20 [History] Gabapentin [Neurontin] 300 mg PO 1200,1800 01/31/20 [History] Insulin Glarg,Human.Rec.Analog [Lantus Solostar] 30 unit SUBCUT BID #1 box 03/03 [Rx] methylPREDNISolone [Medrol Dose Pack] 4 mg PO DAILY #1 dospk 03/03/20 [Rx] Roflumilast [Daliresp] 250 mcg PO DAILY 05/11/20 [History] Azithromycin [Zithromax] 250 mg PO Q24H #5 tablet 05/12/20 [Rx] predniSONE [Prednisone] 20 mg PO DAILY 12 Days #24 tablet 05/12/20 [Rx] Past Medical History HEENT History: Reports: None Other HEENT History: glasses and hearing aides Cardiovascular History: Reports: CAD, Heart Failure, High Cholesterol, Hypertension, LA, Stents Respiratory History: Reports: Asthma, COPD Other Respiratory History: states may need cpap but does not have one. Gastrointestinal History: Reports: Diverticulosis, Gastritis, GERD Genitourinary History: Reports: None Musculoskeletal History: Reports: Arthritis, Back Pain, Chronic Neurological History: Reports: None Psychiatric History: Reports: Anxiety, Depression, Panic Attack, PTSD Endocrine/Metabolic History: Reports: Diabetes, Type II Insulin Pump Model and Lawn Care Specialist: None Hematologic History: Reports: None Immunologic History: Reports: None Oncologic (Cancer) History: Reports: None Dermatologic History: Reports: None - Infectious Disease History Infectious Disease History: Reports: None - Past Surgical History Head Surgeries/Procedures: Reports: None HEENT Surgical History: Reports: None Cardiovascular Surgical History: Reports: Other (See Below) Other Cardiovascular Surgeries/Procedures: Respiratory Surgical History: Reports: None Other Respiratory Surgeries/Procedures: on 2L/min @ home GI Surgical History: Reports: Colonoscopy Male Surgical History: Reports: None Endocrine Surgical History: Reports: None Neurological Surgical History: Reports: None Musculoskeletal Surgical History: Reports: None Oncologic Surgical History: Reports: None Dermatological Surgical History: Reports: None Social & Family History - Family History Family Medical History: Noncontributory - Tobacco Use Smoking Status *Q: Former Smoker Used Tobacco, but Quit: Yes Month/Year Tobacco Last Used: 1999 - Caffeine Use Caffeine Use: Reports: Coffee Caffeine Use Comment: Rarely - Recreational Drug Use Recreational Drug Use: No H&P Review of Systems - Review of Systems: Review Of Systems: See Below General: Reports: Weakness. Denies: Fever, Chills, Malaise, Fatigue, Night Sweats Pulmonary: Reports: Shortness of Breath, Wheezing, Cough. Denies: Pleuritic Chest Pain, Sputum, Hemoptysis Cardiovascular: Reports: Dyspnea on Exertion. Denies: Chest Pain, Palpitations , Orthopnea, Edema Gastrointestinal: Denies: Abdominal Pain, Anorexia, Black Stool, Bloody Stool Genitourinary: Denies: Dysuria, Frequency, Burning Musculoskeletal: Denies: Neck Pain, Shoulder Pain, Arm Pain, Back Pain Skin: Denies: Cyanosis, Jaundice, Mottled, Pallor Psychiatric: Denies: Confusion, Depression, Mood Lability, Anxiety Neurological: Denies: Confusion, Dizziness, Headache Exam - Exam Exam: See Below - Vital Signs Vital Signs: Last Vital Signs Temp 37.1 C 05/10/20 15:37 Pulse 118 H 05/10/20 15:37 Resp 30 H 05/10/20 15:37 BP 144/91 H 05/10/20 15:37 Pulse Ox 99 05/10/20 15:37 Weight: 109.769 kg - Exam Quality Assessment: Supplemental Oxygen General: Alert, Oriented HEENT: Conjunctiva Clear Neck: Supple, Trachea Midline Lungs: Decreased Breath Sounds, Wheezing Cardiovascular: Regular Rate, Regular Rhythm, Normal S1, Normal S2 GI/Abdominal Exam: Normal Bowel Sounds, Soft, Non-Tender, Distended Extremities: Normal Inspection, Normal Range of Motion Peripheral Pulses: 3+: Dorsalis Pedis (L), Dorsalis Pedis (R) - Patient Data Lab Results Last 24 hrs: Laboratory Results - last 24 hr 05/10/20 05/10/20 05/10/20 Range/Units 16:07 16:07 16:07 WBC 9.02 (4.0-11.0) K/uL RBC 4.16 L (4.50-5.90) M/uL Hgb 12.1 L (13.0-17.0) g/dL Hct 39.7 (38.0-50.0) % MCV 95.4 (80.0-98.0) fL MCH 29.1 (27.0-32.0) pg MCHC 30.5 L (31.0-37.0) g/dL RDW Std Deviation 52.5 (28.0-62.0) fl RDW Coeff of Rocco 15 (11.0-15.0) % Plt Count 214 (150-400) K/uL MPV 10.10 (7.40-12.00) fL Neut % (Auto) 72.6 (48.0-80.0) % Lymph % (Auto) 18.3 (16.0-40.0) % Wheeler % (Auto) 6.7 (0.0-15.0) % Eos % (Auto) 2.1 (0.0-7.0) % Baso % (Auto) 0.3 (0.0-1.5) % Neut # (Auto) 6.6 H (1.4-5.7) K/uL Lymph # (Auto) 1.7 (0.6-2.4) K/uL Wheeler # (Auto) 0.6 (0.0-0.8) K/uL Eos # (Auto) 0.2 (0.0-0.7) K/uL Baso # (Auto) 0.0 (0.0-0.1) K/uL Nucleated RBC % 0.0 /100WBC Nucleated RBCs # 0 K/uL ABG pH (7.35-7.45) ABG pCO2 (35-45) mmHG ABG pO2 (75-100) mmHG ABG HCO3 (22-26) mEq/L ABG Total CO2 ABG Base Excess (-2.0-2.0) Lactate 1.1 (0.20-2.00) mmol/L Sodium 141 (136-148) mmol/L Potassium 4.6 (3.5-5.1) mmol/L Chloride 99 (98-107) mmol/L Carbon Dioxide 33.7 H (21.0-32.0) mmol/L BUN 24 H (7.0-18.0) mg/dL Creatinine 0.9 (0.8-1.3) mg/dL Est Cr Clr Drug Dosing 68.72 mL/min Estimated GFR (MDRD) > 60.0 ml/min Glucose 164 H (74-106) mg/dL Calcium 9.1 (8.5-10.1) mg/dL Total Bilirubin 0.3 (0.2-1.0) mg/dL AST 20 (15-37) IU/L ALT 15 (14-63) IU/L Alkaline Phosphatase 72 (46-116) U/L Troponin I < 0.050 (0.000-0.056) ng/mL B-Natriuretic Peptide (<100) PG/ML Total Protein 6.9 (6.4-8.2) g/dL Albumin 3.2 L (3.4-5.0) g/dL Globulin 3.7 (2.6-4.0) g/dL Albumin/Globulin Ratio 0.9 (0.9-1.6) SARS-CoV-2 RNA (RT-PCR) (NEGATIVE) 05/10/20 05/10/20 05/10/20 Range/Units 16:07 16:32 18:05 WBC (4.0-11.0) K/uL RBC (4.50-5.90) M/uL Hgb (13.0-17.0) g/dL Hct (38.0-50.0) % MCV (80.0-98.0) fL MCH (27.0-32.0) pg MCHC (31.0-37.0) g/dL RDW Std Deviation (28.0-62.0) fl RDW Coeff of Rocco (11.0-15.0) % Plt Count (150-400) K/uL MPV (7.40-12.00) fL Neut % (Auto) (48.0-80.0) % Lymph % (Auto) (16.0-40.0) % Wheeler % (Auto) (0.0-15.0) % Eos % (Auto) (0.0-7.0) % Baso % (Auto) (0.0-1.5) % Neut # (Auto) (1.4-5.7) K/uL Lymph # (Auto) (0.6-2.4) K/uL Wheeler # (Auto) (0.0-0.8) K/uL Eos # (Auto) (0.0-0.7) K/uL Baso # (Auto) (0.0-0.1) K/uL Nucleated RBC % /100WBC Nucleated RBCs # K/uL ABG pH 7.341 L (7.35-7.45) ABG pCO2 66 H (35-45) mmHG ABG pO2 100 (75-100) mmHG ABG HCO3 35 H (22-26) mEq/L ABG Total CO2 32.5 ABG Base Excess 7.5 H (-2.0-2.0) Lactate (0.20-2.00) mmol/L Sodium (136-148) mmol/L Potassium (3.5-5.1) mmol/L Chloride (98-107) mmol/L Carbon Dioxide (21.0-32.0) mmol/L BUN (7.0-18.0) mg/dL Creatinine (0.8-1.3) mg/dL Est Cr Clr Drug Dosing mL/min Estimated GFR (MDRD) ml/min Glucose (74-106) mg/dL Calcium (8.5-10.1) mg/dL Total Bilirubin (0.2-1.0) mg/dL AST (15-37) IU/L ALT (14-63) IU/L Alkaline Phosphatase (46-116) U/L Troponin I (0.000-0.056) ng/mL B-Natriuretic Peptide 11 (<100) PG/ML Total Protein (6.4-8.2) g/dL Albumin (3.4-5.0) g/dL Globulin (2.6-4.0) g/dL Albumin/Globulin Ratio (0.9-1.6) SARS-CoV-2 RNA (RT-PCR) NEGATIVE (NEGATIVE) Result Diagrams: 05/12/20 05:44 05/12/20 05:44 Sepsis Event Note - Evaluation Sepsis Screening Result: No Definite Risk - Focused Exam Vital Signs: Vital Signs Temp Pulse Resp BP Pulse Ox 05/10/20 15:37 37.1 C 118 H 30 H 144/91 H 99 Date Exam was Performed: 05/16/20 Time Exam was Performed: 14:13 - Problem List (1) COPD exacerbation SNOMED Code(s): 083483848 ICD Code: J44.1 - CHRONIC OBSTRUCTIVE PULMONARY DISEASE W (ACUTE) EXACERBATION Status: Acute (2) CAD (coronary artery disease) SNOMED Code(s): 05072372 ICD Code: I25.10 - ATHSCL HEART DISEASE OF [place] CORONARY ARTERY W/O ANG PCTRS Status: Acute (3) HTN (hypertension) SNOMED Code(s): 98055513 ICD Code: I10 - ESSENTIAL (PRIMARY) HYPERTENSION Status: Acute (4) HLD (hyperlipidemia) SNOMED Code(s): 32285160 ICD Code: E78.5 - HYPERLIPIDEMIA, UNSPECIFIED Status: Acute (5) Diabetes SNOMED Code(s): 25230790 ICD Code: E11.9 - TYPE 2 DIABETES MELLITUS WITHOUT COMPLICATIONS Status: Acute Problem List Initiated/Reviewed/Updated: Yes Orders Last 24hrs: Active Orders 24 hr Category Date Time Status Admission Status [Patient Status] [ADT] Stat ADT 05/10/20 18:17 Active Ambulate [RC] ASDIRECTED Care 05/10/20 19:32 Active Antiembolic Devices [RC] PER UNIT ROUTINE Care 05/10/20 19:34 Active EKG Documentation Completion [RC] STAT Care 05/10/20 15:31 Active Oxygen Therapy [RC] PRN Care 05/10/20 19:32 Active RT Aerosol Therapy [RC] ASDIRECTED Care 05/10/20 15:37 Active RT Aerosol Therapy [RC] ASDIRECTED Care 05/10/20 19:36 Active VTE/DVT Education [RC] PER UNIT ROUTINE Care 05/10/20 19:32 Active Vital Signs [RC] Q4H Care 05/10/20 19:32 Active Heart Healthy Diet [DIET] Diet 05/10/20 Dinner Active CULTURE BLOOD [BC] Stat Lab 05/10/20 16:07 Received CULTURE BLOOD [BC] Stat Lab 05/10/20 16:16 Received Albuterol/Ipratropium [DuoNeb 3.0-0.5 MG/3 ML] Med 05/10/20 22:00 Active 3 ml NEB Q4HRRT Azithromycin [Zithromax] Med 05/11/20 09:00 Active 250 mg PO Q24H Azithromycin [Zithromax] 500 mg Med 05/10/20 19:45 Active Sodium Chloride 0.9% [Normal Saline (AdvBag)] 250 ml IV ONETIME Lactated Ringers [Ringers, Lactated] 1,000 ml Med 05/10/20 19:45 Active IV ASDIRECTED Morphine Med 05/10/20 19:32 Active 1 mg IVPUSH Q4H PRN Ondansetron [Zofran] Med 05/10/20 19:32 Active 4 mg IVPUSH Q4H PRN methylPREDNISolone Sod Succ [Solu-MEDROL] Med 05/11/20 08:00 Active 40 mg IVPUSH Q8H Blood Culture x2 Reflex Set [OM.PC] Stat Oth 05/10/20 15:31 Ordered Sequential Compression Device [OM.PC] Per Unit Routine Oth 05/10/20 19:33 Ordered Resuscitation Status Routine Resus Stat 05/10/20 19:32 Ordered Medication Orders Albuterol/Ipratropium (Duoneb 3.0-0.5 Mg/3 Ml) 3 ml NEB Q4HRRT MAGEN Azithromycin (Zithromax) 250 mg PO Q24H MAGEN Lactated Ringer's (Ringers, Lactated) 1,000 mls @ 100 mls/hr IV ASDIRECTED MAGEN Azithromycin 500 mg/ Sodium (Chloride) 250 mls @ 250 mls/hr IV ONETIME MAGEN Methylprednisolone Sodium Succinate (Solu-Medrol) 40 mg IVPUSH Q8H MAGEN Morphine Sulfate (Morphine) 1 mg IVPUSH Q4H PRN PRN Reason: Pain (severe 7-10) Stop: 05/11/20 19:35 Ondansetron HCl (Zofran) 4 mg IVPUSH Q4H PRN PRN Reason: Nausea/Vomiting Assessment/Plan Comment:: 80 y/o M admitted for COPD exacerbation with possible bronchitis cont oxygenation via NC Will start IV 40 mg solumedrol Will start IV fluids Will start DuoNebs scheduled Azithromycin 500 mg IV once now and 250 from tomorrow, monitor Qtc 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
[2020-05-10] MEDS ORDERED: Azithromycin 500 MG in Sodium Chloride 0.9% 250 ML IV SCH (19:45)
[2020-05-10] MEDS ORDERED: Heparin Sodium 5,000 Units/ML Vial SUBCUT SCH (19:45)
[2020-05-10] MEDS ORDERED: Azithromycin 500 MG in Sodium Chloride 0.9% 250 ML IV ONE (20:30)
[2020-05-10] MEDS: Gabapentin 300 MG Cap PO SCH (20:51)
[2020-05-10] MEDS: Rosuvastatin 10 MG Tab PO SCH (20:51)
[2020-05-10] MEDS: Metoprolol Tartrate 50 MG Tab PO SCH (20:52)
[2020-05-10] MEDS: Lactated Ringers 1,000 ML IV SCH (20:58)
[2020-05-10] MEDS: Insulin Glargine,Human Rec. Analog 100 Units/ML 3 ML Pen SUBCUT SCH (21:06)
[2020-05-10] MEDS: Albuterol/Ipratropium 3.0-0.5 MG/3 ML Neb Soln NEB SCH (21:15)
[2020-05-10] MEDS ORDERED: Lactated Ringers 500 ML IV SCH (22:00)
[2020-05-10] MEDS: Acetaminophen/HYDROcodone 325-10 MG Tab PO PRN (22:19)
[2020-05-11] MEDS: Albuterol/Ipratropium 3.0-0.5 MG/3 ML Neb Soln NEB SCH ×6 (01:14→21:17)
[2020-05-11] MEDS: Lactated Ringers 1,000 ML IV SCH (03:30)
[2020-05-11 06:36] LABS: HEMOGLOBIN A1C 7.2 % (4.5-6.2)
[2020-05-11 06:40] LABS: BLOOD UREA NITROGEN,BUN 23 mg/dL (7.0-18.0); CARBON DIOXIDE,CO2 32.7 mmol/L (21.0-32.0); CHLORIDE,CL 99 mmol/L (98-107); GLUCOSE RANDOM 272 mg/dL (74-106); POTASSIUM,K 4.8 mmol/L (3.5-5.1); SODIUM,NA 139 mmol/L (136-148)
[2020-05-11] MEDS: Acetaminophen/HYDROcodone 325-10 MG Tab PO PRN ×2 (06:46→16:37)
[2020-05-11] MEDS: Pantoprazole 40 MG Tab.CR PO SCH (06:46)
[2020-05-11] MEDS: Insulin Aspart 100 Units/ML 3 ML Pen SUBCUT SCH ×3 (06:51→19:02)
[2020-05-11] MEDS: methylPREDNISolone Sodium Succinate 40 MG/1 ML SDV IVPUSH SCH ×3 (08:52→23:34)
[2020-05-11] MEDS: Spironolactone 25 MG Tab PO SCH (08:53)
[2020-05-11] MEDS: Gabapentin 300 MG Cap PO SCH ×2 (08:53→20:05)
[2020-05-11] MEDS: Metoprolol Tartrate 50 MG Tab PO SCH ×2 (08:53→20:06)
[2020-05-11] MEDS: Furosemide 40 MG Tab PO SCH (08:54)
[2020-05-11] MEDS: Clopidogrel 75 MG Tab PO SCH (08:54)
[2020-05-11] MEDS: Aspirin 81 MG Tab.EC PO SCH (08:54)
[2020-05-11] MEDS: Citalopram 20 MG Tab PO SCH (08:55)
[2020-05-11] MEDS: Lidocaine 5% 700 MG Patch TRDERM SCH (08:59)
[2020-05-11] MEDS ORDERED: ROFLUMILAST 250 MCG PO SCH (09:00)
[2020-05-11] MEDS: Polyethylene Glycol 3350 Powder 17 GM Packet PO SCH (09:00)
[2020-05-11] MEDS: Insulin Glargine,Human Rec. Analog 100 Units/ML 3 ML Pen SUBCUT SCH ×2 (09:05→20:09)
[2020-05-11] MEDS ORDERED: Magnesium Sulfate/Water 2 GM in Premix Bag 1 BAG IV ONE (09:16)
[2020-05-11] MEDS ORDERED: Phosphorus #1 250 MG Tab PO ONE (09:18)
--- NOTE | 2020-05-11 13:53 | PCM.PN ---
- General Info Date of Service: 05/11/20 - Review of Systems Systems Review Comment:: patient reports feeling weak, reports some improvement in shortness of breath since admission. - Patient Data Vitals - Most Recent: Last Vital Signs Temp 37.0 C 05/11/20 12:00 Pulse 101 H 05/11/20 12:00 Resp 20 05/11/20 12:00 BP 127/70 05/11/20 12:00 Pulse Ox 96 05/11/20 12:00 Weight - Most Recent: 107.411 kg I&O - Last 24 Hours: Intake & Output 05/10/20 05/11/20 05/11/20 22:59 06:59 14:59 Intake Total 1463 Output Total 450 Balance 1013 Lab Results Last 24 Hours: Laboratory Results - last 24 hr 05/10/20 05/10/20 05/10/20 Range/Units 16:07 16:07 16:07 WBC 9.02 (4.0-11.0) K/uL RBC 4.16 L (4.50-5.90) M/uL Hgb 12.1 L (13.0-17.0) g/dL Hct 39.7 (38.0-50.0) % MCV 95.4 (80.0-98.0) fL MCH 29.1 (27.0-32.0) pg MCHC 30.5 L (31.0-37.0) g/dL RDW Std Deviation 52.5 (28.0-62.0) fl RDW Coeff of Rocco 15 (11.0-15.0) % Plt Count 214 (150-400) K/uL MPV 10.10 (7.40-12.00) fL Neut % (Auto) 72.6 (48.0-80.0) % Lymph % (Auto) 18.3 (16.0-40.0) % [place] % (Auto) 6.7 (0.0-15.0) % Eos % (Auto) 2.1 (0.0-7.0) % Baso % (Auto) 0.3 (0.0-1.5) % Neut # (Auto) 6.6 H (1.4-5.7) K/uL Lymph # (Auto) 1.7 (0.6-2.4) K/uL [place] # (Auto) 0.6 (0.0-0.8) K/uL Eos # (Auto) 0.2 (0.0-0.7) K/uL Baso # (Auto) 0.0 (0.0-0.1) K/uL Nucleated RBC % 0.0 /100WBC Nucleated RBCs # 0 K/uL ABG pH (7.35-7.45) ABG pCO2 (35-45) mmHG ABG pO2 (75-100) mmHG ABG HCO3 (22-26) mEq/L ABG Total CO2 ABG Base Excess (-2.0-2.0) Lactate 1.1 (0.20-2.00) mmol/L Sodium 141 (136-148) mmol/L Potassium 4.6 (3.5-5.1) mmol/L Chloride 99 (98-107) mmol/L Carbon Dioxide 33.7 H (21.0-32.0) mmol/L BUN 24 H (7.0-18.0) mg/dL Creatinine 0.9 (0.8-1.3) mg/dL Est Cr Clr Drug Dosing 68.72 mL/min Estimated GFR (MDRD) > 60.0 ml/min Glucose 164 H (74-106) mg/dL POC Glucose (60-110) mg/dL Hemoglobin A1c (4.5-6.2) % Calcium 9.1 (8.5-10.1) mg/dL Phosphorus (2.6-4.7) mg/dL Magnesium (1.8-2.4) mg/dL Total Bilirubin 0.3 (0.2-1.0) mg/dL AST 20 (15-37) IU/L ALT 15 (14-63) IU/L Alkaline Phosphatase 72 (46-116) U/L Troponin I < 0.050 (0.000-0.056) ng/mL B-Natriuretic Peptide (<100) PG/ML Total Protein 6.9 (6.4-8.2) g/dL Albumin 3.2 L (3.4-5.0) g/dL Globulin 3.7 (2.6-4.0) g/dL Albumin/Globulin Ratio 0.9 (0.9-1.6) TSH 3rd Generation (0.36-3.74) uIU/mL SARS-CoV-2 RNA (RT-PCR) (NEGATIVE) 05/10/20 05/10/20 05/10/20 Range/Units 16:07 16:32 18:05 WBC (4.0-11.0) K/uL RBC (4.50-5.90) M/uL Hgb (13.0-17.0) g/dL Hct (38.0-50.0) % MCV (80.0-98.0) fL MCH (27.0-32.0) pg MCHC (31.0-37.0) g/dL RDW Std Deviation (28.0-62.0) fl RDW Coeff of Rocco (11.0-15.0) % Plt Count (150-400) K/uL MPV (7.40-12.00) fL Neut % (Auto) (48.0-80.0) % Lymph % (Auto) (16.0-40.0) % [place] % (Auto) (0.0-15.0) % Eos % (Auto) (0.0-7.0) % Baso % (Auto) (0.0-1.5) % Neut # (Auto) (1.4-5.7) K/uL Lymph # (Auto) (0.6-2.4) K/uL [place] # (Auto) (0.0-0.8) K/uL Eos # (Auto) (0.0-0.7) K/uL Baso # (Auto) (0.0-0.1) K/uL Nucleated RBC % /100WBC Nucleated RBCs # K/uL ABG pH 7.341 L (7.35-7.45) ABG pCO2 66 H (35-45) mmHG ABG pO2 100 (75-100) mmHG ABG HCO3 35 H (22-26) mEq/L ABG Total CO2 32.5 ABG Base Excess 7.5 H (-2.0-2.0) Lactate (0.20-2.00) mmol/L Sodium (136-148) mmol/L Potassium (3.5-5.1) mmol/L Chloride (98-107) mmol/L Carbon Dioxide (21.0-32.0) mmol/L BUN (7.0-18.0) mg/dL Creatinine (0.8-1.3) mg/dL Est Cr Clr Drug Dosing mL/min Estimated GFR (MDRD) ml/min Glucose (74-106) mg/dL POC Glucose (60-110) mg/dL Hemoglobin A1c (4.5-6.2) % Calcium (8.5-10.1) mg/dL Phosphorus (2.6-4.7) mg/dL Magnesium (1.8-2.4) mg/dL Total Bilirubin (0.2-1.0) mg/dL AST (15-37) IU/L ALT (14-63) IU/L Alkaline Phosphatase (46-116) U/L Troponin I (0.000-0.056) ng/mL B-Natriuretic Peptide 11 (<100) PG/ML Total Protein (6.4-8.2) g/dL Albumin (3.4-5.0) g/dL Globulin (2.6-4.0) g/dL Albumin/Globulin Ratio (0.9-1.6) TSH 3rd Generation (0.36-3.74) uIU/mL SARS-CoV-2 RNA (RT-PCR) NEGATIVE (NEGATIVE) 05/10/20 05/11/20 05/11/20 Range/Units 21:00 05:35 05:35 WBC 6.47 (4.0-11.0) K/uL RBC 3.91 L (4.50-5.90) M/uL Hgb 11.6 L (13.0-17.0) g/dL Hct 36.6 L (38.0-50.0) % MCV 93.6 (80.0-98.0) fL MCH 29.7 (27.0-32.0) pg MCHC 31.7 (31.0-37.0) g/dL RDW Std Deviation 47.6 (28.0-62.0) fl RDW Coeff of Rocco 14 (11.0-15.0) % Plt Count 214 (150-400) K/uL MPV 10.20 (7.40-12.00) fL Neut % (Auto) 82.9 H (48.0-80.0) % Lymph % (Auto) 13.4 L (16.0-40.0) % [place] % (Auto) 3.2 (0.0-15.0) % Eos % (Auto) 0.2 (0.0-7.0) % Baso % (Auto) 0.3 (0.0-1.5) % Neut # (Auto) 5.4 (1.4-5.7) K/uL Lymph # (Auto) 0.9 (0.6-2.4) K/uL [place] # (Auto) 0.2 (0.0-0.8) K/uL Eos # (Auto) 0.0 (0.0-0.7) K/uL Baso # (Auto) 0.0 (0.0-0.1) K/uL Nucleated RBC % /100WBC Nucleated RBCs # K/uL ABG pH (7.35-7.45) ABG pCO2 (35-45) mmHG ABG pO2 (75-100) mmHG ABG HCO3 (22-26) mEq/L ABG Total CO2 ABG Base Excess (-2.0-2.0) Lactate (0.20-2.00) mmol/L Sodium 139 (136-148) mmol/L Potassium 4.8 (3.5-5.1) mmol/L Chloride 99 (98-107) mmol/L Carbon Dioxide 32.7 H (21.0-32.0) mmol/L BUN 23 H (7.0-18.0) mg/dL Creatinine 0.9 (0.8-1.3) mg/dL Est Cr Clr Drug Dosing 68.72 mL/min Estimated GFR (MDRD) > 60.0 ml/min Glucose 272 H (74-106) mg/dL POC Glucose 187 H (60-110) mg/dL Hemoglobin A1c (4.5-6.2) % Calcium 8.3 L (8.5-10.1) mg/dL Phosphorus 2.1 L (2.6-4.7) mg/dL Magnesium 1.3 L (1.8-2.4) mg/dL Total Bilirubin (0.2-1.0) mg/dL AST (15-37) IU/L ALT (14-63) IU/L Alkaline Phosphatase (46-116) U/L Troponin I (0.000-0.056) ng/mL B-Natriuretic Peptide (<100) PG/ML Total Protein (6.4-8.2) g/dL Albumin (3.4-5.0) g/dL Globulin (2.6-4.0) g/dL Albumin/Globulin Ratio (0.9-1.6) TSH 3rd Generation 0.28 L (0.36-3.74) uIU/mL SARS-CoV-2 RNA (RT-PCR) (NEGATIVE) 05/11/20 05/11/20 05/11/20 Range/Units 05:35 06:04 12:08 WBC (4.0-11.0) K/uL RBC (4.50-5.90) M/uL Hgb (13.0-17.0) g/dL Hct (38.0-50.0) % MCV (80.0-98.0) fL MCH (27.0-32.0) pg MCHC (31.0-37.0) g/dL RDW Std Deviation (28.0-62.0) fl RDW Coeff of Rocco (11.0-15.0) % Plt Count (150-400) K/uL MPV (7.40-12.00) fL Neut % (Auto) (48.0-80.0) % Lymph % (Auto) (16.0-40.0) % [place] % (Auto) (0.0-15.0) % Eos % (Auto) (0.0-7.0) % Baso % (Auto) (0.0-1.5) % Neut # (Auto) (1.4-5.7) K/uL Lymph # (Auto) (0.6-2.4) K/uL [place] # (Auto) (0.0-0.8) K/uL Eos # (Auto) (0.0-0.7) K/uL Baso # (Auto) (0.0-0.1) K/uL Nucleated RBC % /100WBC Nucleated RBCs # K/uL ABG pH (7.35-7.45) ABG pCO2 (35-45) mmHG ABG pO2 (75-100) mmHG ABG HCO3 (22-26) mEq/L ABG Total CO2 ABG Base Excess (-2.0-2.0) Lactate (0.20-2.00) mmol/L Sodium (136-148) mmol/L Potassium (3.5-5.1) mmol/L Chloride (98-107) mmol/L Carbon Dioxide (21.0-32.0) mmol/L BUN (7.0-18.0) mg/dL Creatinine (0.8-1.3) mg/dL Est Cr Clr Drug Dosing mL/min Estimated GFR (MDRD) ml/min Glucose (74-106) mg/dL POC Glucose 248 H 313 H (60-110) mg/dL Hemoglobin A1c 7.2 H (4.5-6.2) % Calcium (8.5-10.1) mg/dL Phosphorus (2.6-4.7) mg/dL Magnesium (1.8-2.4) mg/dL Total Bilirubin (0.2-1.0) mg/dL AST (15-37) IU/L ALT (14-63) IU/L Alkaline Phosphatase (46-116) U/L Troponin I (0.000-0.056) ng/mL B-Natriuretic Peptide (<100) PG/ML Total Protein (6.4-8.2) g/dL Albumin (3.4-5.0) g/dL Globulin (2.6-4.0) g/dL Albumin/Globulin Ratio (0.9-1.6) TSH 3rd Generation (0.36-3.74) uIU/mL SARS-CoV-2 RNA (RT-PCR) (NEGATIVE) Med Orders - Current: Current Medications Hydrocodone Bitart/Acetaminophen ([place] 325-10 Mg) 1 tab PO TID PRN PRN Reason: Pain Last Admin: 05/11/20 06:46 Dose: 1 tab Albuterol/Ipratropium (Duoneb 3.0-0.5 Mg/3 Ml) 3 ml NEB Q4HRRT [facility] Last Admin: 05/11/20 09:22 Dose: 3 ml Aspirin (Halfprin) 81 mg PO DAILY [facility] Last Admin: 05/11/20 08:54 Dose: 81 mg Azithromycin (Zithromax) 250 mg PO Q24H [facility] Citalopram Hydrobromide (Celexa) 10 mg PO DAILY [facility] Last Admin: 05/11/20 08:55 Dose: 10 mg Clopidogrel Bisulfate (Plavix) 75 mg PO DAILY [facility] Last Admin: 05/11/20 08:54 Dose: 75 mg Furosemide (Lasix) 40 mg PO DAILY [facility] Last Admin: 05/11/20 08:54 Dose: 40 mg Gabapentin (Neurontin) 600 mg PO BID [facility] Last Admin: 05/11/20 08:53 Dose: 600 mg Lactated Ringer's (Ringers, Lactated) 1,000 mls @ 100 mls/hr IV ASDIRECTED [facility] Last Admin: 05/11/20 03:30 Dose: 100 mls/hr Lactated Ringer's (Ringers, Lactated) 500 mls @ 999 mls/hr IV ASDIRECTED [facility] Last Admin: 05/10/20 22:18 Dose: 999 mls/hr Insulin Aspart (Novolog) 0 unit SUBCUT TIDAC [facility]; Protocol Last Admin: 05/11/20 12:27 Dose: 8 units Insulin Glargine (Lantus Solostar) 30 units SUBCUT BID [facility] Last Admin: 05/11/20 09:05 Dose: 30 units Lidocaine (Lidoderm 5%) 1,400 mg TRDERM DAILY [facility] Last Admin: 05/11/20 08:59 Dose: Not Given Methylprednisolone Sodium Succinate (Solu-Medrol) 40 mg IVPUSH Q8H [facility] Last Admin: 05/11/20 08:52 Dose: 40 mg Metoprolol Tartrate (Lopressor) 50 mg PO BID [facility] Last Admin: 05/11/20 08:53 Dose: 50 mg Miscellaneous Information (Remove Patch) 2 ea TRDERM BEDTIME [facility] Last Admin: 05/10/20 20:52 Dose: Not Given Morphine Sulfate (Morphine) 1 mg IVPUSH Q4H PRN PRN Reason: Pain (severe 7-10) Stop: 05/11/20 19:35 Last Admin: 05/11/20 05:21 Dose: 1 mg Ondansetron HCl (Zofran) 4 mg IVPUSH Q4H PRN PRN Reason: Nausea/Vomiting Pantoprazole Sodium (Protonix) 40 mg PO ACBREAKFAST [facility] Last Admin: 05/11/20 06:46 Dose: 40 mg Diclofenac Gel 0 each TOP QID PRN PRN Reason: pain and inflammation Roflumilast 250 Mcg 1 each PO DAILY [facility] Last Admin: 05/11/20 12:26 Dose: 1 each Polyethylene Glycol (Miralax) 17 gm PO DAILY [facility] [place] Last Admin: 05/11/20 09:00 Dose: Not Given Rosuvastatin Calcium (Crestor) 40 mg PO BEDTIME [facility] Last Admin: 05/10/20 20:51 Dose: 40 mg Spironolactone (Aldactone) 50 mg PO DAILY [facility] [place] Last Admin: 05/11/20 08:53 Dose: 50 mg Discontinued Medications Albuterol/Ipratropium (Duoneb 3.0-0.5 Mg/3 Ml) 3 ml NEB ONETIME ONE Stop: 05/10/20 15:38 Last Admin: 05/10/20 15:53 Dose: 3 ml Heparin Sodium (Porcine) (Heparin Sodium) 5,000 units SUBCUT Q8H [facility] Azithromycin 500 mg/ Sodium (Chloride) 250 mls @ 250 mls/hr IV ONETIME ONE Stop: 05/10/20 21:29 Last Admin: 05/10/20 20:58 Dose: 250 mls/hr Magnesium Sulfate 2 gm/ Premix 50 mls @ 50 mls/hr IV ONETIME ONE Stop: 05/11/20 10:15 Last Admin: 05/11/20 09:38 Dose: 50 mls/hr Methylprednisolone Sodium Succinate (Solu-Medrol) 125 mg IVPUSH ONETIME ONE Stop: 05/10/20 15:47 Last Admin: 05/10/20 16:25 Dose: 125 mg Non-Formulary Medication (Acetaminophen/Hydrocodone) 10 - 325 mg PO TID PRN PRN Reason: Pain Non-Formulary Medication (Diclofenac Sodium) 4 gm TOP QID PRN PRN Reason: pain and inflammation Roflumilast 250 Mcg 1 each PO DAILY [facility] Last Admin: 05/11/20 09:31 Dose: Not Given Sodium Phosphate (Neutra-Phos) 250 mg PO ONETIME ONE Stop: 05/11/20 09:19 Last Admin: 05/11/20 09:45 Dose: 250 mg - Exam General: Alert, Oriented Neck: Supple Lungs: Normal Respiratory Effort, Decreased Breath Sounds Cardiovascular: Regular Rate, Regular Rhythm GI/Abdominal Exam: Normal Bowel Sounds, Soft, Non-Tender Extremities: Non-Tender, No Pedal Edema Skin: Warm, Dry, Intact Neurological: No New Focal Deficit Sepsis Event Note - Evaluation Sepsis Screening Result: No Definite Risk - Focused Exam Vital Signs: Vital Signs Temp Pulse Pulse Resp BP BP Pulse Ox 05/11/20 12:00 37.0 C 101 H 20 127/70 96 05/11/20 08:53 103 H 121/59 L 05/11/20 04:00 36.2 C 109 H 20 129/69 95 Date Exam was Performed: 05/11/20 Time Exam was Performed: 13:50 - Problem List Review Problem List Initiated/Reviewed/Updated: Yes - My Orders Last 24 Hours: My Active Orders 05/11/20 13:49 CPAP Noctural Home [RT BiPAP/CPAP] [RC] ASDIRECTED 05/12/20 05:11 BASIC METABOLIC PANEL,BMP [CHEM] AM CBC WITH AUTO DIFF [HEME] AM - Plan Plan:: 80 yo male admitted for COPD exacerbation. We will continue solumedrol 40mg IV q 8hs, scheduled duonebs. and azithromycin. Patient to use home nocturnal CPAP. We will continue to monitor, likely discharge home tomorrow.
[2020-05-11] MEDS ORDERED: Azithromycin 250 MG Tab PO SCH (20:00)
[2020-05-11] MEDS: Rosuvastatin 10 MG Tab PO SCH (20:05)
[2020-05-12] MEDS: Acetaminophen/HYDROcodone 325-10 MG Tab PO PRN ×2 (00:42→08:42)
[2020-05-12] MEDS: Albuterol/Ipratropium 3.0-0.5 MG/3 ML Neb Soln NEB SCH ×3 (01:02→09:24)
[2020-05-12 06:31] LABS: BLOOD UREA NITROGEN,BUN 20 mg/dL (7.0-18.0); CHLORIDE,CL 100 mmol/L (98-107); GLUCOSE RANDOM 259 mg/dL (74-106); POTASSIUM,K 4.3 mmol/L (3.5-5.1); SODIUM,NA 139 mmol/L (136-148)
[2020-05-12] MEDS: Pantoprazole 40 MG Tab.CR PO SCH (07:18)
[2020-05-12] MEDS: Insulin Aspart 100 Units/ML 3 ML Pen SUBCUT SCH ×2 (07:56→11:59)
[2020-05-12] MEDS: methylPREDNISolone Sodium Succinate 40 MG/1 ML SDV IVPUSH SCH (08:20)
[2020-05-12] MEDS: Gabapentin 300 MG Cap PO SCH (08:20)
[2020-05-12] MEDS: Clopidogrel 75 MG Tab PO SCH (08:20)
[2020-05-12] MEDS: Metoprolol Tartrate 50 MG Tab PO SCH (08:20)
[2020-05-12] MEDS: Furosemide 40 MG Tab PO SCH (08:20)
[2020-05-12] MEDS: Aspirin 81 MG Tab.EC PO SCH (08:20)
[2020-05-12] MEDS: Spironolactone 25 MG Tab PO SCH (08:21)
[2020-05-12] MEDS: Citalopram 20 MG Tab PO SCH (08:24)
[2020-05-12] MEDS: Polyethylene Glycol 3350 Powder 17 GM Packet PO SCH (08:30)
[2020-05-12] MEDS: Lidocaine 5% 700 MG Patch TRDERM SCH (08:30)
[2020-05-12] MEDS: Insulin Glargine,Human Rec. Analog 100 Units/ML 3 ML Pen SUBCUT SCH (08:35)
--- NOTE | 2020-05-12 10:26 | PCM.DCSUM1 ---
Discharge Summary - Discharge Data Discharge Date: 05/12/20 Discharge Disposition: Home, Self-Care 01 Condition: Stable - Referral to Home Health Primary Care Physician: PCP Unobtainable - Patient Summary/Data Hospital Course: Patient is a 80-year-old male with PMH of COPD, CAD s/p stent, HTN, DM on home O2 2L NC who was admitted for COPD exacerbation. He presented with shortness of breath and cough for one week. His CXR was unremarkable, Troponin was negative. ABG showed slight acidosis with permissive hypercapnia, Patient was treated with IV solumedrol, duonebs and azithromycin. He did have improvement in his shortness of breath and today is requesting discharge home. On the day of admission he was schedule for a sleep study for his obstructive sleep apnea. I have ordered a home auto titrate machine as it has been difficult to schedule his sleep study. He is to follow up with the [place] [facility]. - Discharge Plan Prescriptions/Med Rec: Azithromycin [Zithromax] 250 mg PO Q24H #5 tablet predniSONE [Prednisone] 20 mg PO DAILY 12 Days #24 tablet Home Medications: Home Meds Albuterol Sulfate [Albuterol Sulfate Hfa] 2 inh IH Q6H PRN 10/13/19 [History] Albuterol/Ipratropium [DuoNeb 3.0-0.5 MG/3 ML] 3 ml NEB Q6H 10/13/19 [History] Aspirin [Ecotrin EC] 81 mg PO DAILY 10/13/19 [History] Budesonide/Formoterol Fumarate [Symbicort 160-4.5 Mcg Inhaler] 2 inh IH Q12H [History] Citalopram [Citalopram HBr] 10 mg PO DAILY 10/13/19 [History] Clopidogrel [Plavix] 75 mg PO DAILY 10/13/19 [History] Diclofenac Sodium [Voltaren 1% Gel] 4 gm TOP QID PRN MDD total body dose 32gm max 10/13/19 [History] Hydrocodone/Acetaminophen [[place] 10-325 Tablet] 10 - 325 mg PO TID PRN 10/13/19 [History] Insulin Aspart [NovoLOG] 15 unit SUBCUT WITHDINNER 10/13/19 [History] Lidocaine 5% [Lidoderm 5%] 2 patch TD .ON 12 HR, OFF 12 HR 10/13/19 [History] Metoprolol Tartrate 50 mg PO BID 10/13/19 [History] [place]-3/DHA/Epa/Fish Oil [Fish Oil 1,000 mg Softgel] 1,000 mg PO BID 10/13/19 [ History] Pantoprazole [ProTONIX] 40 mg PO ACBREAKFAST 10/13/19 [History] Rosuvastatin Calcium [Crestor] 40 mg PO BEDTIME 10/13/19 [History] Spironolactone [Aldactone] 50 mg PO DAILY 10/13/19 [History] metFORMIN HCl [Metformin HCl ER] 1,000 mg PO BID 10/13/19 [History] polyethylene glycoL 3350 [MiraLAX] 17 gm PO DAILY 10/13/19 [History] Furosemide 40 mg PO DAILY 12/30/19 [History] Gabapentin [Neurontin] 600 mg PO BID 12/30/19 [History] Alogliptin Benzoate [Alogliptin] 25 mg PO DAILY 01/27/20 [History] Meloxicam 15 mg PO WITHBREAKFAST 01/27/20 [History] Gabapentin [Neurontin] 300 mg PO 1200,1800 01/31/20 [History] Insulin Glarg,Human.Rec.Analog [Lantus Solostar] 30 unit SUBCUT BID #1 box 03/03 [Rx] methylPREDNISolone [Medrol Dose Pack] 4 mg PO DAILY #1 dospk 03/03/20 [Rx] Roflumilast [Daliresp] 250 mcg PO DAILY 05/11/20 [History] Azithromycin [Zithromax] 250 mg PO Q24H #5 tablet 05/12/20 [Rx] predniSONE [Prednisone] 20 mg PO DAILY 12 Days #24 tablet 05/12/20 [Rx] Referrals: [facility] [Outside] - 05/19/20 10:30 am - Discharge Summary/Plan Comment DC Time >30 min.: No - Patient Data Vitals - Most Recent: Last Vital Signs Temp 36.6 C 05/12/20 04:15 Pulse 97 05/12/20 08:20 Resp 21 H 05/12/20 04:15 BP 116/57 L 05/12/20 08:20 Pulse Ox 94 L 05/12/20 04:15 Weight - Most Recent: 107.32 kg I&O - Last 24 hours: Intake & Output 05/11/20 05/12/20 05/12/20 22:59 06:59 14:59 Intake Total 50 690 Output Total 850 905 Balance -800 -215 Lab Results - Last 24 hrs: Laboratory Results - last 24 hr 05/11/20 05/11/20 05/12/20 Range/Units 12:08 18:03 05:44 WBC 8.94 (4.0-11.0) K/uL RBC 4.06 L (4.50-5.90) M/uL Hgb 11.7 L (13.0-17.0) g/dL Hct 37.3 L (38.0-50.0) % MCV 91.9 (80.0-98.0) fL MCH 28.8 (27.0-32.0) pg MCHC 31.4 (31.0-37.0) g/dL RDW Std Deviation 48.9 (28.0-62.0) fl RDW Coeff of Rocco 15 (11.0-15.0) % Plt Count 262 (150-400) K/uL MPV 9.90 (7.40-12.00) fL Neut % (Auto) 87.6 H (48.0-80.0) % Lymph % (Auto) 9.4 L (16.0-40.0) % [place] % (Auto) 3.0 (0.0-15.0) % Eos % (Auto) 0.0 (0.0-7.0) % Baso % (Auto) 0.0 (0.0-1.5) % Neut # (Auto) 7.8 H (1.4-5.7) K/uL Lymph # (Auto) 0.8 (0.6-2.4) K/uL [place] # (Auto) 0.3 (0.0-0.8) K/uL Eos # (Auto) 0.0 (0.0-0.7) K/uL Baso # (Auto) 0.0 (0.0-0.1) K/uL Nucleated RBC % 0.0 /100WBC Nucleated RBCs # 0 K/uL Sodium (136-148) mmol/L Potassium (3.5-5.1) mmol/L Chloride (98-107) mmol/L Carbon Dioxide (21.0-32.0) mmol/L BUN (7.0-18.0) mg/dL Creatinine (0.8-1.3) mg/dL Est Cr Clr Drug Dosing mL/min Estimated GFR (MDRD) ml/min Glucose (74-106) mg/dL POC Glucose 313 H (60-110) mg/dL Calcium (8.5-10.1) mg/dL Magnesium 1.7 L (1.8-2.4) mg/dL 05/12/20 Range/Units 05:44 WBC (4.0-11.0) K/uL RBC (4.50-5.90) M/uL Hgb (13.0-17.0) g/dL Hct (38.0-50.0) % MCV (80.0-98.0) fL MCH (27.0-32.0) pg MCHC (31.0-37.0) g/dL RDW Std Deviation (28.0-62.0) fl RDW Coeff of [place] (11.0-15.0) % Plt Count (150-400) K/uL MPV (7.40-12.00) fL Neut % (Auto) (48.0-80.0) % Lymph % (Auto) (16.0-40.0) % [place] % (Auto) (0.0-15.0) % Eos % (Auto) (0.0-7.0) % Baso % (Auto) (0.0-1.5) % Neut # (Auto) (1.4-5.7) K/uL Lymph # (Auto) (0.6-2.4) K/uL [place] # (Auto) (0.0-0.8) K/uL Eos # (Auto) (0.0-0.7) K/uL Baso # (Auto) (0.0-0.1) K/uL Nucleated RBC % /100WBC Nucleated RBCs # K/uL Sodium 139 (136-148) mmol/L Potassium 4.3 (3.5-5.1) mmol/L Chloride 100 (98-107) mmol/L Carbon Dioxide 33.0 H (21.0-32.0) mmol/L BUN 20 H (7.0-18.0) mg/dL Creatinine 0.9 (0.8-1.3) mg/dL Est Cr Clr Drug Dosing 68.72 mL/min Estimated GFR (MDRD) > 60.0 ml/min Glucose 259 H (74-106) mg/dL POC Glucose (60-110) mg/dL Calcium 8.7 (8.5-10.1) mg/dL Magnesium (1.8-2.4) mg/dL CHARLENE Results - Last 24 hrs: Microbiology 05/10/20 16:16 Aerobic Blood Culture - Preliminary Blood - Venous - Lab Draw NO GROWTH AFTER 1 DAY Anaerobic Blood Culture - Preliminary NO GROWTH AFTER 1 DAY 05/10/20 16:07 Aerobic Blood Culture - Preliminary Blood - Venous NO GROWTH AFTER 1 DAY Anaerobic Blood Culture - Preliminary NO GROWTH AFTER 1 DAY Med Orders - Current: Current Medications Hydrocodone Bitart/Acetaminophen ([place] 325-10 Mg) 1 tab PO TID PRN PRN Reason: Pain Last Admin: 05/12/20 08:42 Dose: 1 tab Albuterol/Ipratropium (Duoneb 3.0-0.5 Mg/3 Ml) 3 ml NEB Q4HRRT [facility] Last Admin: 05/12/20 09:24 Dose: 3 ml Aspirin (Halfprin) 81 mg PO DAILY [facility] Last Admin: 05/12/20 08:20 Dose: 81 mg Azithromycin (Zithromax) 250 mg PO Q24H [facility] Last Admin: 05/11/20 20:05 Dose: 250 mg Citalopram Hydrobromide (Celexa) 10 mg PO DAILY [facility] Last Admin: 05/12/20 08:24 Dose: 10 mg Clopidogrel Bisulfate (Plavix) 75 mg PO DAILY [facility] Last Admin: 05/12/20 08:20 Dose: 75 mg Furosemide (Lasix) 40 mg PO DAILY [facility] Last Admin: 05/12/20 08:20 Dose: 40 mg Gabapentin (Neurontin) 600 mg PO BID [facility] Last Admin: 05/12/20 08:20 Dose: 600 mg Lactated Ringer's (Ringers, Lactated) 500 mls @ 999 mls/hr IV ASDIRECTED [facility] Last Admin: 05/10/20 22:18 Dose: 999 mls/hr Insulin Aspart (Novolog) 0 unit SUBCUT TIDAC [facility]; Protocol Last Admin: 05/12/20 07:56 Dose: 4 units Insulin Glargine (Lantus Solostar) 30 units SUBCUT BID [facility] Last Admin: 05/12/20 08:35 Dose: 30 units Lidocaine (Lidoderm 5%) 1,400 mg TRDERM DAILY [facility] Last Admin: 05/12/20 08:30 Dose: Not Given Methylprednisolone Sodium Succinate (Solu-Medrol) 40 mg IVPUSH Q8H [facility] Last Admin: 05/12/20 08:20 Dose: 40 mg Metoprolol Tartrate (Lopressor) 50 mg PO BID [facility] Last Admin: 05/12/20 08:20 Dose: 50 mg Miscellaneous Information (Remove Patch) 2 ea TRDERM BEDTIME [facility] Last Admin: 05/11/20 20:07 Dose: Not Given Ondansetron HCl (Zofran) 4 mg IVPUSH Q4H PRN PRN Reason: Nausea/Vomiting Pantoprazole Sodium (Protonix) 40 mg PO ACBREAKFAST [facility] Last Admin: 05/12/20 07:18 Dose: 40 mg Diclofenac Gel 0 each TOP QID PRN PRN Reason: pain and inflammation Roflumilast 250 Mcg 1 each PO DAILY [facility] Last Admin: 05/11/20 12:26 Dose: 1 each Polyethylene Glycol (Miralax) 17 gm PO DAILY [facility] Last Admin: 05/12/20 08:30 Dose: Not Given Rosuvastatin Calcium (Crestor) 40 mg PO BEDTIME [facility] Last Admin: 05/11/20 20:05 Dose: 40 mg Spironolactone (Aldactone) 50 mg PO DAILY [facility] Last Admin: 05/12/20 08:21 Dose: 50 mg Discontinued Medications Albuterol/Ipratropium (Duoneb 3.0-0.5 Mg/3 Ml) 3 ml NEB ONETIME ONE Stop: 05/10/20 15:38 Last Admin: 05/10/20 15:53 Dose: 3 ml Heparin Sodium (Porcine) (Heparin Sodium) 5,000 units SUBCUT Q8H [facility] Lactated Ringer's (Ringers, Lactated) 1,000 mls @ 100 mls/hr IV ASDIRECTED [facility] Last Admin: 05/11/20 03:30 Dose: 100 mls/hr Azithromycin 500 mg/ Sodium (Chloride) 250 mls @ 250 mls/hr IV ONETIME ONE Stop: 05/10/20 21:29 Last Admin: 05/10/20 20:58 Dose: 250 mls/hr Magnesium Sulfate 2 gm/ Premix 50 mls @ 50 mls/hr IV ONETIME ONE Stop: 05/11/20 10:15 Last Admin: 05/11/20 09:38 Dose: 50 mls/hr Methylprednisolone Sodium Succinate (Solu-Medrol) 125 mg IVPUSH ONETIME ONE Stop: 05/10/20 15:47 Last Admin: 05/10/20 16:25 Dose: 125 mg Morphine Sulfate (Morphine) 1 mg IVPUSH Q4H PRN PRN Reason: Pain (severe 7-10) Stop: 05/11/20 19:35 Last Admin: 05/11/20 05:21 Dose: 1 mg Non-Formulary Medication (Acetaminophen/Hydrocodone) 10 - 325 mg PO TID PRN PRN Reason: Pain Non-Formulary Medication (Diclofenac Sodium) 4 gm TOP QID PRN PRN Reason: pain and inflammation Roflumilast 250 Mcg 1 each PO DAILY [facility] Last Admin: 05/11/20 09:31 Dose: Not Given Sodium Phosphate (Neutra-Phos) 250 mg PO ONETIME ONE Stop: 05/11/20 09:19 Last Admin: 05/11/20 09:45 Dose: 250 mg
== END 2020-05-12 13:10 | disposition home or self-care (01) ==
LOC: MW.ED 15:05 → MW.MS 18:17
PROVIDERS: ADMIT Student in an Organized Health Care Education/Training Program; ATTEND Student in an Organized Health Care Education/Training Program
DX: J44.1 Chronic obstructive pulmonary disease with (acute) exacerbation (principal); I11.0 Hypertensive heart disease with heart failure; I50.9 Heart failure, unspecified; E78.00 Pure hypercholesterolemia, unspecified; J44.9 Chronic obstructive pulmonary disease, unspecified; F41.9 Anxiety disorder, unspecified; F32.9 Major depressive disorder, single episode, unspecified; E11.9 Type 2 diabetes mellitus without complications; I25.10 Atherosclerotic heart disease of native coronary artery without angina pectoris; E78.5 Hyperlipidemia, unspecified; Z95.5 Presence of coronary angioplasty implant and graft; Z87.891 Personal history of nicotine dependence; Z99.81 Dependence on supplemental oxygen; Z79.51 Long term (current) use of inhaled steroids; Z88.8 Allergy status to other drugs, medicaments and biological substances; Z79.82 Long term (current) use of aspirin; Z79.899 Other long term (current) drug therapy; Z79.4 Long term (current) use of insulin
CPT/HCPCS: 36415; 36600; 71045; 80048; 80053; 82803; 82962; 83036; 83605; 83735; 83880; 84100; 84443; 84484; 85025; 87040; 87635; 93005; 94640; 96361; 96374; 96375; 96376; 99285; A9270; G0378; J0456; J1815; J2270; J2920; J2930; J3475; J7050; J7120; 99283; J7620-GY; U0002

== ENCOUNTER 2020-07-10 02:13 | Emergency (ER) | payer OTHER, MEDICARE ==
[2020-07-10] MEDS ORDERED: Acetaminophen/HYDROcodone 325-5 MG Tab PO ONE (02:18)
--- NOTE | 2020-07-10 02:23 | EDM.PDOC ---
ED HPI GENERAL MEDICAL PROBLEM - General Stated Complaint: BREATHING PROBLEMS Time Seen by Provider: 07/10/20 02:23 Source of Information: Reports: Patient History Limitations: Reports: No Limitations - History of Present Illness INITIAL COMMENTS - FREE TEXT/NARRATIVE: 80M several comorbidities presents for shakiness and feeling unwell after accidental drug ingestion. Patient notes sinus congestion and recently got an rx for flonase. He accidentally took narcan instead of his flonase and noted afterwards heart racing and shakiness. He notes chronic norco use. He says he feels like he does when it's time to take his pain medication but worse. - Related Data Allergies Allergy/AdvReac Type Severity Reaction Status Date / Time atorvastatin Allergy Other Verified 05/10/20 15:33 bupropion [From Wellbutrin] Allergy Other Verified 05/10/20 15:33 duloxetine HCl Allergy Rash Verified 05/10/20 15:33 [From Cymbalta] Iodinated Contrast Media Allergy Other Verified 05/10/20 15:33 meloxicam Allergy Other Verified 05/10/20 15:33 naproxen Allergy Other Verified 05/10/20 15:33 paroxetine Allergy Other Verified 05/10/20 15:33 sertraline HCl [From Zoloft] Allergy Rash Verified 05/10/20 15:33 venlafaxine [From Effexor] Allergy oth Verified 05/10/20 15:33 Home Meds: Home Meds Albuterol Sulfate [Albuterol Sulfate Hfa] 2 inh IH Q6H PRN 10/13/19 [History] Albuterol/Ipratropium [DuoNeb 3.0-0.5 MG/3 ML] 3 ml NEB Q6H 10/13/19 [History] Aspirin [Ecotrin EC] 81 mg PO DAILY 10/13/19 [History] Budesonide/Formoterol Fumarate [Symbicort 160-4.5 Mcg Inhaler] 2 inh IH Q12H 10/13/19 [History] Citalopram [Citalopram HBr] 10 mg PO DAILY 10/13/19 [History] Clopidogrel [Plavix] 75 mg PO DAILY 10/13/19 [History] Diclofenac Sodium [Voltaren 1% Gel] 4 gm TOP QID PRN MDD total body dose 32gm max 10/13/19 [History] Hydrocodone/Acetaminophen [[place] 10-325 Tablet] 10 - 325 mg PO TID PRN 10/13/19 [History] Insulin Aspart [NovoLOG] 15 unit SUBCUT WITHDINNER 10/13/19 [History] Lidocaine 5% [Lidoderm 5%] 2 patch TD .ON 12 HR, OFF 12 HR 10/13/19 [History] Metoprolol Tartrate 50 mg PO BID 10/13/19 [History] Parrish-3/DHA/Epa/Fish Oil [Fish Oil 1,000 mg Softgel] 1,000 mg PO BID 10/13/19 [History] Pantoprazole [ProTONIX] 40 mg PO ACBREAKFAST 10/13/19 [History] Rosuvastatin Calcium [Crestor] 40 mg PO BEDTIME 10/13/19 [History] Spironolactone [Aldactone] 50 mg PO DAILY 10/13/19 [History] metFORMIN HCl [Metformin HCl ER] 1,000 mg PO BID 10/13/19 [History] polyethylene glycoL 3350 [MiraLAX] 17 gm PO DAILY 10/13/19 [History] Furosemide 40 mg PO DAILY 12/30/19 [History] Gabapentin [Neurontin] 600 mg PO BID 12/30/19 [History] Alogliptin Benzoate [Alogliptin] 25 mg PO DAILY 01/27/20 [History] Meloxicam 15 mg PO WITHBREAKFAST 01/27/20 [History] Gabapentin [Neurontin] 300 mg PO 1200,1800 01/31/20 [History] Insulin Glarg,Human.Rec.Analog [Lantus Solostar] 30 unit SUBCUT BID #1 box 03/03/20 [Rx] methylPREDNISolone [Medrol Dose Pack] 4 mg PO DAILY #1 dospk 03/03/20 [Rx] Roflumilast [Daliresp] 250 mcg PO DAILY 05/11/20 [History] Azithromycin [Zithromax] 250 mg PO Q24H #5 tablet 05/12/20 [Rx] predniSONE [Prednisone] 20 mg PO DAILY 12 Days #24 tablet 05/12/20 [Rx] Past Medical History HEENT History: Reports: None Other HEENT History: glasses and hearing aides Cardiovascular History: Reports: CAD, Heart Failure, High Cholesterol, Hypertension, DC, Stents Respiratory History: Reports: Asthma, COPD Other Respiratory History: states may need cpap but does not have one. Gastrointestinal History: Reports: Diverticulosis, Gastritis, GERD Genitourinary History: Reports: None Musculoskeletal History: Reports: Arthritis, Back Pain, Chronic Neurological History: Reports: None Psychiatric History: Reports: Anxiety, Depression, Panic Attack, PTSD Endocrine/Metabolic History: Reports: Diabetes, Type II Insulin Pump Model and Collateral Specialist: None Hematologic History: Reports: None Immunologic History: Reports: None Oncologic (Cancer) History: Reports: None Dermatologic History: Reports: None - Infectious Disease History Infectious Disease History: Reports: None - Past Surgical History Head Surgeries/Procedures: Reports: None HEENT Surgical History: Reports: None Cardiovascular Surgical History: Reports: Other (See Below) Other Cardiovascular Surgeries/Procedures: Respiratory Surgical History: Reports: None Other Respiratory Surgeries/Procedures: on 2L/min @ home GI Surgical History: Reports: Colonoscopy Male Surgical History: Reports: None Endocrine Surgical History: Reports: None Neurological Surgical History: Reports: None Musculoskeletal Surgical History: Reports: None Oncologic Surgical History: Reports: None Dermatological Surgical History: Reports: None Social & Family History - Family History Family Medical History: Noncontributory - Caffeine Use Caffeine Use: Reports: Coffee Caffeine Use Comment: Rarely ED ROS GENERAL - Review of Systems Review Of Systems: Comprehensive ROS is negative, except as noted in HPI. ED EXAM, GENERAL - Physical Exam Exam: See Below Exam Limited By: No Limitations General Appearance: Alert, WD/WN, No Apparent Distress, Anxious Head: Atraumatic, Normocephalic Neck: Normal Inspection Respiratory/Chest: No Respiratory Distress, Lungs Clear, Normal Breath Sounds, No Accessory Muscle Use Cardiovascular: Normal Peripheral Pulses, Tachycardia GI/Abdominal: Soft, Non-Tender Extremities: Normal Inspection Neurological: Alert, Oriented Psychiatric: Normal Affect, Normal Mood Skin Exam: Warm, Dry Course - Vital Signs Last Recorded V/S: Last Vital Signs Temp 98.1 F 07/10/20 02:42 Pulse 124 H 07/10/20 02:42 Resp 20 07/10/20 02:42 BP 141/90 H 07/10/20 02:42 Pulse Ox 82 L 07/10/20 02:42 - Orders/Labs/Meds Orders: Active Orders 24 hr Category Date Time Status Cardiac Monitoring [RC] . DIRECTED Care 07/10/20 02:18 Active EKG 12 Lead [EKG Documentation Completion] [RC] STAT Care 07/10/20 02:23 Active Pulse Oximetry [RC] ASDIRECTED Care 07/10/20 02:18 Active COMPREHENSIVE METABOLIC PN,CMP [CHEM] Stat Lab 07/10/20 02:20 Received PROCALCITONIN [REF] Stat Lab 07/10/20 02:20 Received UA W/CHARLENE RFLX IF INDICATED [URIN] Stat Lab 07/10/20 02:19 Ordered Labs: Laboratory Tests 07/10/20 07/10/20 07/10/20 Range/Units 02:20 02:20 02:20 WBC 11.08 H (4.0-11.0) K/uL RBC 4.61 (4.50-5.90) M/uL Hgb 13.4 (13.0-17.0) g/dL Hct 42.5 (38.0-50.0) % MCV 92.2 (80.0-98.0) fL MCH 29.1 (27.0-32.0) pg MCHC 31.5 (31.0-37.0) g/dL RDW Std Deviation 48.2 (28.0-62.0) fl RDW Coeff of Rocco 15 (11.0-15.0) % Plt Count 238 (150-400) K/uL MPV 9.90 (7.40-12.00) fL Neut % (Auto) 68.5 (48.0-80.0) % Lymph % (Auto) 22.6 (16.0-40.0) % [place] % (Auto) 7.1 (0.0-15.0) % Eos % (Auto) 1.4 (0.0-7.0) % Baso % (Auto) 0.4 (0.0-1.5) % Neut # (Auto) 7.6 H (1.4-5.7) K/uL Lymph # (Auto) 2.5 H (0.6-2.4) K/uL [place] # (Auto) 0.8 (0.0-0.8) K/uL Eos # (Auto) 0.2 (0.0-0.7) K/uL Baso # (Auto) 0.0 (0.0-0.1) K/uL ABG pH (7.35-7.45) ABG pCO2 (35-45) mmHG ABG pO2 (75-100) mmHG ABG HCO3 (22-26) mEq/L ABG Total CO2 ABG Base Excess (-2.0-2.0) Magnesium 1.3 L (1.8-2.4) mg/dL Troponin I < 0.050 (0.000-0.056) ng/mL C-Reactive Protein 0.80 (0.00-0.90) mg/dL B-Natriuretic Peptide 20 (<100) PG/ML 07/10/20 Range/Units 02:35 WBC (4.0-11.0) K/uL RBC (4.50-5.90) M/uL Hgb (13.0-17.0) g/dL Hct (38.0-50.0) % MCV (80.0-98.0) fL MCH (27.0-32.0) pg MCHC (31.0-37.0) g/dL RDW Std Deviation (28.0-62.0) fl RDW Coeff of Rocco (11.0-15.0) % Plt Count (150-400) K/uL MPV (7.40-12.00) fL Neut % (Auto) (48.0-80.0) % Lymph % (Auto) (16.0-40.0) % [place] % (Auto) (0.0-15.0) % Eos % (Auto) (0.0-7.0) % Baso % (Auto) (0.0-1.5) % Neut # (Auto) (1.4-5.7) K/uL Lymph # (Auto) (0.6-2.4) K/uL [place] # (Auto) (0.0-0.8) K/uL Eos # (Auto) (0.0-0.7) K/uL Baso # (Auto) (0.0-0.1) K/uL ABG pH 7.389 (7.35-7.45) ABG pCO2 56 H (35-45) mmHG ABG pO2 132 H (75-100) mmHG ABG HCO3 34 H (22-26) mEq/L ABG Total CO2 30.3 ABG Base Excess 6.9 H (-2.0-2.0) Magnesium (1.8-2.4) mg/dL Troponin I (0.000-0.056) ng/mL C-Reactive Protein (0.00-0.90) mg/dL B-Natriuretic Peptide (<100) PG/ML Meds: Medications Discontinued Medications Generic Name Dose Route Start Last Admin Trade Name Mariana PRN Reason Stop Dose Admin Hydrocodone Bitart/Acetaminophen 2 tab 07/10/20 02:18 07/10/20 02:35 [place] 325-5 Mg PO 07/10/20 02:19 2 tab ONETIME ONE Administration - Re-Assessments/Exams Free Text/Narrative Re-Assessment/Exam: 07/10/20 04:12 will get labs, cxr, ekg. Will give norco 10mg. Patient feeling much better. HR improved to low 100s/high 90s (patient baseline). WIll d/c with PMD f/u, return precautions Departure - Departure Time of Disposition: 04:13 Disposition: DC/Tfer to Medicaid N[facility] Condition: Good Clinical Impression: Drug ingestion, accidental Qualifiers: Encounter type: initial encounter Qualified Code(s): T50.901A - Poisoning by unspecified drugs, medicaments and biological substances, accidental (unintentional), initial encounter - Discharge Information Instructions: Accidental Drug Poisoning, Adult Referrals: PCP,None [Primary Care Provider] - Additional Instructions: The following information is given to patients seen in the emergency department who are being discharged to home. This information is to outline your options for follow-up care. We provide all patients seen in our emergency department with a follow-up referral. The need for follow-up, as well as the timing and circumstances, are variable depending upon the specifics of your emergency department visit. If you don't have a primary care physician on staff, we will provide you with a referral. We always advise you to contact your personal physician following an emergency department visit to inform them of the circumstance of the visit and for follow-up with them and/or the need for any referrals to a consulting specialist. The emergency department will also refer you to a specialist when appropriate. This referral assures that you have the opportunity for follow-up care with a specialist. All of these measure are taken in an effort to provide you with optimal care, which includes your follow-up. Under all circumstances we always encourage you to contact your private physician who remains a resource for coordinating your care. When calling for follow-up care, please make the office aware that this follow-up is from your re cent emergency room visit. If for any reason you are refused follow-up, please contact the [facility] Emergency Department at and asked to speak to the emergency department charge nurse. Sepsis Event Note (ED) - Focused Exam Vital Signs: Vital Signs Temp Pulse Resp BP Pulse Ox 07/10/20 02:42 98.1 F 124 H 20 141/90 H 82 L - My Orders Last 24 Hours: My Active Orders 07/10/20 02:18 Cardiac Monitoring [RC] . DIRECTED Pulse Oximetry [RC] ASDIRECTED 07/10/20 02:19 UA W/CHARLENE RFLX IF INDICATED [URIN] Stat 07/10/20 02:20 COMPREHENSIVE METABOLIC PN,CMP [CHEM] Stat PROCALCITONIN [REF] Stat 07/10/20 02:23 EKG 12 Lead [EKG Documentation Completion] [RC] STAT - Assessment/Plan Last 24 Hours: My Active Orders 07/10/20 02:18 Cardiac Monitoring [RC] . DIRECTED Pulse Oximetry [RC] ASDIRECTED 07/10/20 02:19 UA W/CHARLENE RFLX IF INDICATED [URIN] Stat 07/10/20 02:20 COMPREHENSIVE METABOLIC PN,CMP [CHEM] Stat PROCALCITONIN [REF] Stat 07/10/20 02:23 EKG 12 Lead [EKG Documentation Completion] [RC] STAT
--- NOTE | 2020-07-10 02:59 | CR ---
INDICATION: Shortness of breath TECHNIQUE: Chest radiograph 1 view COMPARISON: 05/10/2020 FINDINGS: Mediastinum: The mediastinum is normal in appearance. The heart silhouette is normal in size and morphology. Lung: Consolidation left lung base left pleural effusion right basal atelectasis, and perihilar edema are present and similar to prior exam. No pneumothorax is identified. Bone and Soft tissue: Unremarkable for age. IMPRESSION: 1. Consolidation left lung base left pleural effusion right basal atelectasis, and perihilar edema are present and similar to prior exam. Dictated by Zuhair Adame MD @ 07/10/2020 2:57:42 AM Dictated by: Zuhair Adame MD @ 07/10/2020 02:57:48 (Electronically Signed)
[2020-07-10 04:12] LABS: BLOOD UREA NITROGEN,BUN 25 mg/dL (7.0-18.0); CARBON DIOXIDE,CO2 32.5 mmol/L (21.0-32.0); CHLORIDE,CL 99 mmol/L (98-107); GLUCOSE RANDOM 301 mg/dL (74-106); POTASSIUM,K 4.3 mmol/L (3.5-5.1); SODIUM,NA 139 mmol/L (136-148)
== END 2020-07-10 05:00 ==
LOC: MW.ED 02:13
DX: T50.7X1A Poisoning by analeptics and opioid receptor antagonists, accidental (unintentional), initial encounter (principal); I25.10 Atherosclerotic heart disease of native coronary artery without angina pectoris; I11.0 Hypertensive heart disease with heart failure; I50.9 Heart failure, unspecified; J44.9 Chronic obstructive pulmonary disease, unspecified; K21.9 Gastro-esophageal reflux disease without esophagitis; M19.90 Unspecified osteoarthritis, unspecified site; F41.9 Anxiety disorder, unspecified; F32.9 Major depressive disorder, single episode, unspecified; E11.9 Type 2 diabetes mellitus without complications; E78.00 Pure hypercholesterolemia, unspecified; I25.2 Old myocardial infarction; Z95.5 Presence of coronary angioplasty implant and graft; Z79.899 Other long term (current) drug therapy; Z79.4 Long term (current) use of insulin; Z88.8 Allergy status to other drugs, medicaments and biological substances; Z91.041 Radiographic dye allergy status; Z88.6 Allergy status to analgesic agent; Z79.82 Long term (current) use of aspirin; Z79.02 Long term (current) use of antithrombotics/antiplatelets
CPT/HCPCS: 36415; 36600; 71045; 80053; 82803; 83735; 83880; 84145; 84484; 85025; 86140; 93005; 99285; A9270; 99283

== ENCOUNTER 2020-08-15 00:31 | Inpatient (IN) | payer OTHER, MEDICARE ==
[2020-08-15] MEDS ORDERED: Sodium Chloride 0.9% 2.5 ML Syringe FLUSH PRN (00:33)
[2020-08-15] MEDS ORDERED: Sodium Chloride 0.9% 10 ML Syringe FLUSH PRN (00:33)
--- NOTE | 2020-08-15 00:38 | EDM.PDOC ---
ED HPI GENERAL MEDICAL PROBLEM - General Chief Complaint: Respiratory Problem Stated Complaint: AMB. Time Seen by Provider: 08/15/20 00:33 Source of Information: Reports: EMS - History of Present Illness INITIAL COMMENTS - FREE TEXT/NARRATIVE: History of present illness: 80-year-old male brought by EMS for dyspnea, dizziness and hypoxia. Patient is not able to give much history and therefore all history taken from EMS and family members who arrived at the emergency department. Apparently the patient had increased his own O2 from his usual 2.5 L to 5 L today and then became dizzy and fell without any significant injury. Family members found him and turned his oxygen down back to his 2.5 L and when EMS arrived he was 76% however once they positioned him and got him onto the stretcher he was saturating in the mid 90s on 2.5 L. Patient has not had any cough. Per EMS vital signs otherwise were stable, mildly hypertensive and mildly tachycardic with a heart rate in the 105 range. On arrival here the patient was 86% on room air. Immediately placed on 5 L by nursing staff here and oxygen increased to 99% and therefore was felt back to 2.5 L and now in the upper 90s. Upon arrival to the emergency department, the family members were able to confirm that the patient was sitting in his chair, got up to empty his urinal in the bathroom and just prior to that turned up his O2 (from usual 2.5 to 5L) in anticipation of the walk to the bathroom, however he did not make it all the way to the bathroom because he became dizzy and fell. He did not strike his head and he did not have any loss of consciousness. The fall was witnessed by family. He did not have any significant injuries and was able to get up after that. Review of systems: As per history of present illness and below otherwise all systems reviewed and negative. Past medical history: As per history of present illness and as reviewed below otherwise noncontributory. Diabetes, hypertension, cardiac disease, COPD, pneumonia, CHF Surgical history: As per history of present illness and as reviewed below otherwise noncontributory. Social history: No reported history of drug or alcohol abuse. No tobacco Family history: As per history of present illness and as reviewed below otherwise noncontributory. Physical exam: GEN: no acute distress, chronically ill appearing HEENT: Atraumatic, normocephalic, mucous membranes dry Neck: supple, nontender, trachea midline. No lymphadenopathy Lungs: No respiratory distress. No wheezes, rales or rhonchi Heart: Mildly tachycardic Abdomen: Soft, nondistended, nontender. Back: nontender Extremities: Both lower extremities are mildly edematous, 1+ with nonpitting edema.. There is no calf tenderness. Extremities appear equally enlarged. No erythema. Neurovascularly intact. Neuro: Awake, alert, patient looks around but does not speak. Appears diffusely weak with no focal neurologic abnormalities. According to the nurses at this facility who have previously cared for the patient, this is his baseline mental status Skin: warm, dry, no lesions Diagnostics: Labs, chest x-ray, EKG, coronavirus swab Therapeutics: Oxygen MDM: Impression: [] Plan: [] Definitive disposition and diagnosis as appropriate pending reevaluation and review of above. - Related Data Allergies Allergy/AdvReac Type Severity Reaction Status Date / Time atorvastatin Allergy Other Verified 08/15/20 00:44 bupropion [From Wellbutrin] Allergy Other Verified 08/15/20 00:44 duloxetine HCl Allergy Rash Verified 08/15/20 00:44 [From Cymbalta] Iodinated Contrast Media Allergy Other Verified 08/15/20 00:44 meloxicam Allergy Other Verified 08/15/20 00:44 naproxen Allergy Other Verified 08/15/20 00:44 paroxetine Allergy Other Verified 08/15/20 00:44 sertraline HCl [From Zoloft] Allergy Rash Verified 08/15/20 00:44 venlafaxine [From Effexor] Allergy oth Verified 08/15/20 00:44 Home Meds: Home Meds Albuterol Sulfate [Albuterol Sulfate Hfa] 2 inh IH Q6H PRN 10/13/19 [History] Albuterol/Ipratropium [DuoNeb 3.0-0.5 MG/3 ML] 3 ml NEB Q6H 10/13/19 [History] Aspirin [Ecotrin EC] 81 mg PO DAILY 10/13/19 [History] Budesonide/Formoterol Fumarate [Symbicort 160-4.5 Mcg Inhaler] 2 inh IH Q12H 10/13/19 [History] Citalopram [Citalopram HBr] 10 mg PO DAILY 10/13/19 [History] Clopidogrel [Plavix] 75 mg PO DAILY 10/13/19 [History] Diclofenac Sodium [Voltaren 1% Gel] 4 gm TOP QID PRN MDD total body dose 32gm max 10/13/19 [History] Hydrocodone/Acetaminophen [Walton 10-325 Tablet] 10 - 325 mg PO TID PRN 10/13/19 [History] Insulin Aspart [NovoLOG] 15 unit SUBCUT WITHDINNER 10/13/19 [History] Lidocaine 5% [Lidoderm 5%] 2 patch TD .ON 12 HR, OFF 12 HR 10/13/19 [History] Metoprolol Tartrate 50 mg PO BID 10/13/19 [History] Yulan-3/DHA/Epa/Fish Oil [Fish Oil 1,000 mg Softgel] 1,000 mg PO BID 10/13/19 [History] Pantoprazole [ProTONIX] 40 mg PO ACBREAKFAST 10/13/19 [History] Rosuvastatin Calcium [Crestor] 40 mg PO BEDTIME 10/13/19 [History] Spironolactone [Aldactone] 50 mg PO DAILY 10/13/19 [History] metFORMIN HCl [Metformin HCl ER] 1,000 mg PO BID 10/13/19 [History] polyethylene glycoL 3350 [MiraLAX] 17 gm PO DAILY 10/13/19 [History] Furosemide 40 mg PO DAILY 12/30/19 [History] Gabapentin [Neurontin] 600 mg PO BID 12/30/19 [History] Alogliptin Benzoate [Alogliptin] 25 mg PO DAILY 01/27/20 [History] Meloxicam 15 mg PO WITHBREAKFAST 01/27/20 [History] Gabapentin [Neurontin] 300 mg PO 1200,1800 01/31/20 [History] Insulin Glarg,Human.Rec.Analog [Lantus Solostar] 30 unit SUBCUT BID #1 box 03/03/20 [Rx] methylPREDNISolone [Medrol Dose Pack] 4 mg PO DAILY #1 dospk 03/03/20 [Rx] Roflumilast [Daliresp] 250 mcg PO DAILY 05/11/20 [History] Azithromycin [Zithromax] 250 mg PO Q24H #5 tablet 05/12/20 [Rx] predniSONE [Prednisone] 20 mg PO DAILY 12 Days #24 tablet 05/12/20 [Rx] Past Medical History HEENT History: Reports: None Other HEENT History: glasses and hearing aides Cardiovascular History: Reports: CAD, Heart Failure, High Cholesterol, Hypertension, AL, Stents Respiratory History: Reports: Asthma, COPD Other Respiratory History: states may need cpap but does not have one. Gastrointestinal History: Reports: Diverticulosis, Gastritis, GERD Genitourinary History: Reports: None Musculoskeletal History: Reports: Arthritis, Back Pain, Chronic Neurological History: Reports: None Psychiatric History: Reports: Anxiety, Depression, Panic Attack, PTSD Endocrine/Metabolic History: Reports: Diabetes, Type II Insulin Pump Model and Wine Steward: None Hematologic History: Reports: None Immunologic History: Reports: None Oncologic (Cancer) History: Reports: None Dermatologic History: Reports: None - Infectious Disease History Infectious Disease History: Reports: None - Past Surgical History Head Surgeries/Procedures: Reports: None HEENT Surgical History: Reports: None Cardiovascular Surgical History: Reports: Other (See Below) Other Cardiovascular Surgeries/Procedures: Respiratory Surgical History: Reports: None Other Respiratory Surgeries/Procedures: on 2L/min @ home GI Surgical History: Reports: Colonoscopy Male Surgical History: Reports: None Endocrine Surgical History: Reports: None Neurological Surgical History: Reports: None Musculoskeletal Surgical History: Reports: None Oncologic Surgical History: Reports: None Dermatological Surgical History: Reports: None Social & Family History - Family History Family Medical History: Noncontributory - Caffeine Use Caffeine Use: Reports: Coffee Caffeine Use Comment: Rarely ED ROS GENERAL - Review of Systems Review Of Systems: See Below (See HPI) ED EXAM, GENERAL - Physical Exam Exam: See Below (See HPI) EKG INTERPRETATION EKG Interpretation Comments: EKG performed at 12:40 AM, sinus tachycardia, rate 109, very poor/wavy baseline wander. No STEMI. Interpreted by me. Course - Vital Signs Text/Narrative:: Weakness, dyspnea, low oxygen saturation at home prior to arrival here but doing well on 3 L by nasal cannula in the upper 90s. Will wean down. Now 97-98% on 2L. Chest x-ray does show bilateral patchy airspace disease worse on the left than the right, and he does have a white blood cell count elevation, suspect po ssible pneumonia. Will cover with antibiotics- no recent hospitalizations, last >3 months ago. No signs of CHF, lungs without any rales or rhonchi, and BNP not elevated. Troponin negative. COVID swab negative. Will admit. Last Recorded V/S: Last Vital Signs Temp 99 F 08/15/20 02:22 Pulse 110 H 08/15/20 02:22 Resp 28 H 08/15/20 02:22 BP 151/80 H 08/15/20 02:22 Pulse Ox 98 08/15/20 02:22 - Orders/Labs/Meds Orders: Active Orders 24 hr Category Date Time Status EKG Documentation Completion [RC] STAT Care 08/15/20 00:34 Active CULTURE BLOOD [BC] Stat Lab 08/15/20 01:53 Received CULTURE BLOOD [BC] Stat Lab 08/15/20 01:59 Received Sodium Chloride 0.9% [Saline Flush] Med 08/15/20 00:33 Active 10 ml FLUSH ASDIRECTED PRN Sodium Chloride 0.9% [Saline Flush] Med 08/15/20 00:33 Active 2.5 ml FLUSH ASDIRECTED PRN Blood Culture x2 Reflex Set [OM.PC] Stat Oth 08/15/20 01:46 Ordered Saline Lock Insert [OM.PC] Stat Oth 08/15/20 00:33 Ordered Medication Orders Sodium Chloride (Saline Flush) 10 ml FLUSH ASDIRECTED PRN PRN Reason: Keep Vein Open Sodium Chloride (Saline Flush) 2.5 ml FLUSH ASDIRECTED PRN PRN Reason: Keep Vein Open Labs: Laboratory Tests 08/15/20 08/15/20 08/15/20 Range/Units 00:35 00:35 00:35 WBC 13.84 H (4.0-11.0) K/uL RBC 4.07 L (4.50-5.90) M/uL Hgb 11.9 L (13.0-17.0) g/dL Hct 38.9 (38.0-50.0) % MCV 95.6 (80.0-98.0) fL MCH 29.2 (27.0-32.0) pg MCHC 30.6 L (31.0-37.0) g/dL RDW Std Deviation 52.1 (28.0-62.0) fl RDW Coeff of Rocco 15 (11.0-15.0) % Plt Count 316 (150-400) K/uL MPV 9.70 (7.40-12.00) fL Neut % (Auto) 72.4 (48.0-80.0) % Lymph % (Auto) 17.6 (16.0-40.0) % Levy % (Auto) 8.4 (0.0-15.0) % Eos % (Auto) 1.4 (0.0-7.0) % Baso % (Auto) 0.2 (0.0-1.5) % Neut # (Auto) 10.0 H (1.4-5.7) K/uL Lymph # (Auto) 2.4 (0.6-2.4) K/uL Levy # (Auto) 1.2 H (0.0-0.8) K/uL Eos # (Auto) 0.2 (0.0-0.7) K/uL Baso # (Auto) 0.0 (0.0-0.1) K/uL Nucleated RBC % 0.0 /100WBC Nucleated RBCs # 0 K/uL Lactate (0.20-2.00) mmol/L Sodium 140 (136-148) mmol/L Potassium 4.9 (3.5-5.1) mmol/L Chloride 96 L (98-107) mmol/L Carbon Dioxide 37.0 H (21.0-32.0) mmol/L BUN 23 H (7.0-18.0) mg/dL Creatinine 1.2 (0.8-1.3) mg/dL Est Cr Clr Drug Dosing 54.79 mL/min Estimated GFR (MDRD) 58.4 ml/min Glucose 238 H (74-106) mg/dL Calcium 9.3 (8.5-10.1) mg/dL Total Bilirubin 0.4 (0.2-1.0) mg/dL AST 22 (15-37) IU/L ALT 21 (14-63) IU/L Alkaline Phosphatase 89 (46-116) U/L Troponin I < 0.050 (0.000-0.056) ng/mL B-Natriuretic Peptide 44 (<100) PG/ML Total Protein 7.2 (6.4-8.2) g/dL Albumin 2.8 L (3.4-5.0) g/dL Globulin 4.4 H (2.6-4.0) g/dL Albumin/Globulin Ratio 0.6 L (0.9-1.6) SARS Virus RNA (PCR) (NEGATIVE) 08/15/20 08/15/20 Range/Units 00:45 01:53 WBC (4.0-11.0) K/uL RBC (4.50-5.90) M/uL Hgb (13.0-17.0) g/dL Hct (38.0-50.0) % MCV (80.0-98.0) fL MCH (27.0-32.0) pg MCHC (31.0-37.0) g/dL RDW Std Deviation (28.0-62.0) fl RDW Coeff of Rocco (11.0-15.0) % Plt Count (150-400) K/uL MPV (7.40-12.00) fL Neut % (Auto) (48.0-80.0) % Lymph % (Auto) (16.0-40.0) % Levy % (Auto) (0.0-15.0) % Eos % (Auto) (0.0-7.0) % Baso % (Auto) (0.0-1.5) % Neut # (Auto) (1.4-5.7) K/uL Lymph # (Auto) (0.6-2.4) K/uL Levy # (Auto) (0.0-0.8) K/uL Eos # (Auto) (0.0-0.7) K/uL Baso # (Auto) (0.0-0.1) K/uL Nucleated RBC % /100WBC Nucleated RBCs # K/uL Lactate 1.4 (0.20-2.00) mmol/L Sodium (136-148) mmol/L Potassium (3.5-5.1) mmol/L Chloride (98-107) mmol/L Carbon Dioxide (21.0-32.0) mmol/L BUN (7.0-18.0) mg/dL Creatinine (0.8-1.3) mg/dL Est Cr Clr Drug Dosing mL/min Estimated GFR (MDRD) ml/min Glucose (74-106) mg/dL Calcium (8.5-10.1) mg/dL Total Bilirubin (0.2-1.0) mg/dL AST (15-37) IU/L ALT (14-63) IU/L Alkaline Phosphatase (46-116) U/L Troponin I (0.000-0.056) ng/mL B-Natriuretic Peptide (<100) PG/ML Total Protein (6.4-8.2) g/dL Albumin (3.4-5.0) g/dL Globulin (2.6-4.0) g/dL Albumin/Globulin Ratio (0.9-1.6) SARS Virus RNA (PCR) NEGATIVE (NEGATIVE) Meds: Medications Generic Name Dose Route Start Last Admin Trade Name Freq PRN Reason Stop Dose Admin Sodium Chloride 10 ml 08/15/20 00:33 Saline Flush FLUSH ASDIRECTED PRN Keep Vein Open Sodium Chloride 2.5 ml 08/15/20 00:33 Saline Flush FLUSH ASDIRECTED PRN Keep Vein Open Discontinued Medications Generic Name Dose Route Start Last Admin Trade Name Freq PRN Reason Stop Dose Admin Azithromycin 500 mg/ Sodium 250 mls @ 250 mls/hr 08/15/20 01:46 08/15/20 02:15 Chloride IV 08/15/20 02:45 250 mls/hr ONETIME ONE Administration Ceftriaxone Sodium/Dextrose 2 50 mls @ 100 mls/hr 08/15/20 01:46 08/15/20 01:57 gm/ Premix IV 08/15/20 02:15 100 mls/hr ONETIME ONE Administration - Re-Assessments/Exams Free Text/Narrative Re-Assessment/Exam: 08/15/20 01:57 Patient still resting comfortably and in no acute distress with no dyspnea. O2 saturation is 98% on 3 L. We will go down to [address] Singh called back and accepts the admission, request to put the patient under observation/telemetry. Departure - Departure Time of Disposition: 01:58 Disposition: Refer to Observation Clinical Impression: Pneumonia Qualifiers: Pneumonia type: due to unspecified organism - Discharge Information Sepsis Event Note (ED) - Focused Exam Vital Signs: Vital Signs Temp Pulse Resp BP Pulse Ox 08/15/20 01:55 98.3 F 105 H 28 H 134/58 L 98 08/15/20 01:15 110 H 28 H 145/77 H 97 08/15/20 00:34 96.8 F L 111 H 24 H 131/82 99 - My Orders Last 24 Hours: My Active Orders 08/15/20 00:33 Sodium Chloride 0.9% [Saline Flush] 10 ml FLUSH ASDIRECTED PRN Sodium Chloride 0.9% [Saline Flush] 2.5 ml FLUSH ASDIRECTED PRN Saline Lock Insert [OM.PC] Stat 08/15/20 00:34 EKG Documentation Completion [RC] STAT 08/15/20 01:46 Blood Culture x2 Reflex Set [OM.PC] Stat 08/15/20 01:53 CULTURE BLOOD [BC] Stat 08/15/20 01:59 CULTURE BLOOD [BC] Stat - Assessment/Plan Last 24 Hours: My Active Orders 08/15/20 00:33 Sodium Chloride 0.9% [Saline Flush] 10 ml FLUSH ASDIRECTED PRN Sodium Chloride 0.9% [Saline Flush] 2.5 ml FLUSH ASDIRECTED PRN Saline Lock Insert [OM.PC] Stat 08/15/20 00:34 EKG Documentation Completion [RC] STAT 08/15/20 01:46 Blood Culture x2 Reflex Set [OM.PC] Stat 08/15/20 01:53 CULTURE BLOOD [BC] Stat 08/15/20 01:59 CULTURE BLOOD [BC] Stat
[2020-08-15 01:07] LABS: BLOOD UREA NITROGEN,BUN 23 mg/dL (7.0-18.0); CHLORIDE,CL 96 mmol/L (98-107); GLUCOSE RANDOM 238 mg/dL (74-106); POTASSIUM,K 4.9 mmol/L (3.5-5.1); SODIUM,NA 140 mmol/L (136-148)
--- NOTE | 2020-08-15 01:42 | CR ---
Indication: Dyspnea Technique: Chest 1 view Comparison: Chest x-ray 07/10/2020 Findings/Impression: Cardiovascular and mediastinum: Globular cardiomegaly with pulmonary cephalization. Lungs and pleural space: Small left pleural effusion with pulmonary cephalization and patchy bilateral airspace disease, greater on the left. This likely represents atelectasis in the retrocardiac space as well as some patchy atelectasis at the right lung base. Some minimal interstitial prominence, possibly minimal edema. Bones and soft tissues: No acute findings. Dictated by Adi Richard MD @ Aug 15 2020 1:40AM Signed by Dr. Adi Richard @ Aug 15 2020 1:41AM
[2020-08-15] MEDS ORDERED: cefTRIAXone 2 GM in Premix Bag 1 BAG IV ONE (01:46)
[2020-08-15] MEDS ORDERED: Azithromycin 500 MG in Sodium Chloride 0.9% 250 ML IV ONE (01:46)
[2020-08-15 06:02] LABS: BLOOD UREA NITROGEN,BUN 27 mg/dL (7.0-18.0); CARBON DIOXIDE,CO2 38.5 mmol/L (21.0-32.0); CHLORIDE,CL 98 mmol/L (98-107); GLUCOSE RANDOM 281 mg/dL (74-106); POTASSIUM,K 5.2 mmol/L (3.5-5.1); SODIUM,NA 140 mmol/L (136-148)
--- NOTE | 2020-08-15 07:51 | PCM.HP.2 ---
H&P History of Present Illness - General Date of Service: 08/15/20 Admit Problem/Dx: Admission Diagnosis/Problem Admission Diagnosis/Problem Pneumonia History Limitations: Reports: No Limitations - History of Present Illness Initial Comments - Free Text/Narative: 80 yr old male admitted for suspected pneumonia and COPD exacerbation. Patient presented overnight to the ED due to dizziness and hypoxia. Patient states that he tried to increase his home baseline O2 from 2.5L to 5L in preparation to get up from his chair and use the bathroom. Patient was not able to walk to the bathroom because he became dizzy and fell. Fall was witnessed by family members. Patient did not hit his head and states that he does not have any pain. Patient on admission states SOB and orthopnea. Denies chest pain, fever or chills. Patient has PMH of CHF, COPD, asthma, HTN, Diabetes, [place], Stent Placements - Related Data Allergies/Adverse Reactions: Allergies Allergy/AdvReac Type Severity Reaction Status Date / Time atorvastatin Allergy Other Verified 08/15/20 00:44 bupropion [From Wellbutrin] Allergy Other Verified 08/15/20 00:44 duloxetine HCl Allergy Rash Verified 08/15/20 00:44 [From Cymbalta] Iodinated Contrast Media Allergy Other Verified 08/15/20 00:44 meloxicam Allergy Other Verified 08/15/20 00:44 naproxen Allergy Other Verified 08/15/20 00:44 paroxetine Allergy Other Verified 08/15/20 00:44 sertraline HCl [From Zoloft] Allergy Rash Verified 08/15/20 00:44 venlafaxine [From Effexor] Allergy oth Verified 08/15/20 00:44 Home Medications: Home Meds Albuterol Sulfate [Albuterol Sulfate Hfa] 2 inh IH Q6H PRN 10/13/19 [History] Albuterol/Ipratropium [DuoNeb 3.0-0.5 MG/3 ML] 3 ml NEB Q6H 10/13/19 [History] Aspirin [Ecotrin EC] 81 mg PO DAILY 10/13/19 [History] Budesonide/Formoterol Fumarate [Symbicort 160-4.5 Mcg Inhaler] 2 inh IH Q12H 10/13/19 [History] Citalopram [Citalopram HBr] 10 mg PO DAILY 10/13/19 [History] Clopidogrel [Plavix] 75 mg PO DAILY 10/13/19 [History] Diclofenac Sodium [Voltaren 1% Gel] 4 gm TOP QID PRN MDD total body dose 32gm max 10/13/19 [History] Hydrocodone/Acetaminophen [Bantam 10-325 Tablet] 10 - 325 mg PO TID PRN 10/13/19 [History] Insulin Aspart [NovoLOG] 15 unit SUBCUT TIDMEALS 10/13/19 [History] Lidocaine 5% [Lidoderm 5%] 2 patch TD .ON 12 HR, OFF 12 HR 10/13/19 [History] Metoprolol Tartrate 50 mg PO BID 10/13/19 [History] [place]-3/DHA/Epa/Fish Oil [Fish Oil 1,000 mg Softgel] 1,000 mg PO BID 10/13/19 [History] Pantoprazole [ProTONIX] 40 mg PO ACBREAKFAST 10/13/19 [History] Rosuvastatin Calcium [Crestor] 40 mg PO BEDTIME 10/13/19 [History] Spironolactone [Aldactone] 50 mg PO DAILY 10/13/19 [History] metFORMIN HCl [Metformin HCl ER] 1,000 mg PO BID 10/13/19 [History] polyethylene glycoL 3350 [MiraLAX] 17 gm PO DAILY 10/13/19 [History] Furosemide 40 mg PO DAILY 12/30/19 [History] Gabapentin [Neurontin] 600 mg PO BID 12/30/19 [History] Alogliptin Benzoate [Alogliptin] 25 mg PO DAILY 01/27/20 [History] Meloxicam 15 mg PO WITHBREAKFAST 01/27/20 [History] Gabapentin [Neurontin] 300 mg PO 1200,1800 01/31/20 [History] Insulin Glarg,Human.Rec.Analog [Lantus Solostar] 30 unit SUBCUT BID #1 box 03/03/20 [Rx] Amitriptyline [Elavil] 25 mg PO BEDTIME 08/15/20 [History] Azithromycin [Zithromax] 250 mg PO MOWEFR 08/15/20 [History] Tiotropium [place] [Spiriva Respimat] 2.5 mcg INH Q24H 08/15/20 [History] methocarbamoL [Methocarbamol] 750 mg PO TID PRN 08/15/20 [History] Past Medical History HEENT History: Reports: None Other HEENT History: glasses and hearing aides Cardiovascular History: Reports: CAD, Heart Failure, High Cholesterol, Hypertension, [place], Stents Respiratory History: Reports: Asthma, COPD Other Respiratory History: states may need cpap but does not have one. 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[employer]: None Hematologic History: Reports: None Immunologic History: Reports: None Oncologic (Cancer) History: Reports: None Dermatologic History: Reports: None - Infectious Disease History Infectious Disease History: Reports: None - Past Surgical History Head Surgeries/Procedures: Reports: None HEENT Surgical History: Reports: None Cardiovascular Surgical History: Reports: Other (See Below) Other Cardiovascular Surgeries/Procedures: Respiratory Surgical History: Reports: None Other Respiratory Surgeries/Procedures: on 2L/min @ home GI Surgical History: Reports: Colonoscopy Male Surgical History: Reports: None Endocrine Surgical History: Reports: None Neurological Surgical History: Reports: None Musculoskeletal Surgical History: Reports: None Oncologic Surgical History: Reports: None Dermatological Surgical History: Reports: None Social & Family History - Family History Family Medical History: Noncontributory - Tobacco Use Smoking Status *Q: Former Smoker Used Tobacco, but Quit: Yes Month/Year Tobacco Last Used: 1999 - Caffeine Use Caffeine Use: Reports: Coffee Caffeine Use Comment: pt is sleeping - Recreational Drug Use Recreational Drug Use: No Other Recreational Drug Type: unable to optain, pt very is sleepy H&P Review of Systems - Review of Systems: Review Of Systems: See Below General: Denies: Fever, Chills Pulmonary: Reports: Shortness of Breath. Denies: Wheezing, Pleuritic Chest Pain, Cough Cardiovascular: Reports: Dyspnea on Exertion, Orthopnea, Edema. Denies: Chest Pain, Palpitations Gastrointestinal: Denies: Abdominal Pain, Nausea, Vomiting Musculoskeletal: Denies: Neck Pain, Shoulder Pain, Back Pain Psychiatric: Denies: Confusion Neurological: Denies: Confusion, Dizziness, Headache Exam - Exam Exam: See Below - Vital Signs Vital Signs: Last Vital Signs Temp 98.6 F 08/15/20 07:02 Pulse 110 H 08/15/20 07:02 Resp 22 H 08/15/20 07:02 BP 124/66 08/15/20 07:02 Pulse Ox 100 08/15/20 07:02 Weight: 234 lb 9.6 oz - Exam General: Alert, Oriented, Mild Distress, Lethargic HEENT: EOMI, Hearing Intact, Mucosa Moist & [place] Lungs: Clear to Auscultation, Wheezing. No: Normal Respiratory Effort, Crackles Cardiovascular: Regular Rhythm. No: Regular Rate (Tachycardia) GI/Abdominal Exam: Soft, Non-Tender, No Distention Extremities: Pedal Edema Neurological: Sensation Intact (extremities) Neuro Extensive - Mental Status: Alert, Oriented x3 Psychiatric: Alert - Patient Data Lab Results Last 24 hrs: Laboratory Results - last 24 hr 08/15/20 08/15/20 08/15/20 Range/Units 00:35 00:35 00:35 WBC 13.84 H (4.0-11.0) K/uL RBC 4.07 L (4.50-5.90) M/uL Hgb 11.9 L (13.0-17.0) g/dL Hct 38.9 (38.0-50.0) % MCV 95.6 (80.0-98.0) fL MCH 29.2 (27.0-32.0) pg MCHC 30.6 L (31.0-37.0) g/dL RDW Std Deviation 52.1 (28.0-62.0) fl RDW Coeff of Rocco 15 (11.0-15.0) % Plt Count 316 (150-400) K/uL MPV 9.70 (7.40-12.00) fL Neut % (Auto) 72.4 (48.0-80.0) % Lymph % (Auto) 17.6 (16.0-40.0) % [place] % (Auto) 8.4 (0.0-15.0) % Eos % (Auto) 1.4 (0.0-7.0) % Baso % (Auto) 0.2 (0.0-1.5) % Neut # (Auto) 10.0 H (1.4-5.7) K/uL Lymph # (Auto) 2.4 (0.6-2.4) K/uL [place] # (Auto) 1.2 H (0.0-0.8) K/uL Eos # (Auto) 0.2 (0.0-0.7) K/uL Baso # (Auto) 0.0 (0.0-0.1) K/uL Nucleated RBC % 0.0 /100WBC Nucleated RBCs # 0 K/uL Lactate (0.20-2.00) mmol/L Sodium 140 (136-148) mmol/L Potassium 4.9 (3.5-5.1) mmol/L Chloride 96 L (98-107) mmol/L Carbon Dioxide 37.0 H (21.0-32.0) mmol/L BUN 23 H (7.0-18.0) mg/dL Creatinine 1.2 (0.8-1.3) mg/dL Est Cr Clr Drug Dosing 54.79 mL/min Estimated GFR (MDRD) 58.4 ml/min Glucose 238 H (74-106) mg/dL Calcium 9.3 (8.5-10.1) mg/dL Total Bilirubin 0.4 (0.2-1.0) mg/dL AST 22 (15-37) IU/L ALT 21 (14-63) IU/L Alkaline Phosphatase 89 (46-116) U/L Troponin I < 0.050 (0.000-0.056) ng/mL B-Natriuretic Peptide 44 (<100) PG/ML Total Protein 7.2 (6.4-8.2) g/dL Albumin 2.8 L (3.4-5.0) g/dL Globulin 4.4 H (2.6-4.0) g/dL Albumin/Globulin Ratio 0.6 L (0.9-1.6) SARS Virus RNA (PCR) (NEGATIVE) 08/15/20 08/15/20 08/15/20 Range/Units 00:45 01:53 05:09 WBC 12.00 H (4.0-11.0) K/uL RBC 3.95 L (4.50-5.90) M/uL Hgb 11.3 L (13.0-17.0) g/dL Hct 37.9 L (38.0-50.0) % MCV 95.9 (80.0-98.0) fL MCH 28.6 (27.0-32.0) pg MCHC 29.8 L (31.0-37.0) g/dL RDW Std Deviation 52.9 (28.0-62.0) fl RDW Coeff of [place]occo 15 (11.0-15.0) % Plt Count 307 (150-400) K/uL MPV 9.60 (7.40-12.00) fL Neut % (Auto) 78.9 (48.0-80.0) % Lymph % (Auto) 9.9 L (16.0-40.0) % [place] % (Auto) 10.4 (0.0-15.0) % Eos % (Auto) 0.6 (0.0-7.0) % Baso % (Auto) 0.2 (0.0-1.5) % Neut # (Auto) 9.5 H (1.4-5.7) K/uL Lymph # (Auto) 1.2 (0.6-2.4) K/uL [place] # (Auto) 1.3 H (0.0-0.8) K/uL Eos # (Auto) 0.1 (0.0-0.7) K/uL Baso # (Auto) 0.0 (0.0-0.1) K/uL Nucleated RBC % 0.0 /100WBC Nucleated RBCs # 0 K/uL Lactate 1.4 (0.20-2.00) mmol/L Sodium (136-148) mmol/L Potassium (3.5-5.1) mmol/L Chloride (98-107) mmol/L Carbon Dioxide (21.0-32.0) mmol/L BUN (7.0-18.0) mg/dL Creatinine (0.8-1.3) mg/dL Est Cr Clr Drug Dosing mL/min Estimated GFR (MDRD) ml/min Glucose (74-106) mg/dL Calcium (8.5-10.1) mg/dL Total Bilirubin (0.2-1.0) mg/dL AST (15-37) IU/L ALT (14-63) IU/L Alkaline Phosphatase (46-116) U/L Troponin I (0.000-0.056) ng/mL B-Natriuretic Peptide (<100) PG/ML Total Protein (6.4-8.2) g/dL Albumin (3.4-5.0) g/dL Globulin (2.6-4.0) g/dL Albumin/Globulin Ratio (0.9-1.6) SARS Virus RNA (PCR) NEGATIVE (NEGATIVE) 08/15/20 Range/Units 05:09 WBC (4.0-11.0) K/uL RBC (4.50-5.90) M/uL Hgb (13.0-17.0) g/dL Hct (38.0-50.0) % MCV (80.0-98.0) fL MCH (27.0-32.0) pg MCHC (31.0-37.0) g/dL RDW Std Deviation (28.0-62.0) fl RDW Coeff of Rocco (11.0-15.0) % Plt Count (150-400) K/uL MPV (7.40-12.00) fL Neut % (Auto) (48.0-80.0) % Lymph % (Auto) (16.0-40.0) % [place] % (Auto) (0.0-15.0) % Eos % (Auto) (0.0-7.0) % Baso % (Auto) (0.0-1.5) % Neut # (Auto) (1.4-5.7) K/uL Lymph # (Auto) (0.6-2.4) K/uL [place] # (Auto) (0.0-0.8) K/uL Eos # (Auto) (0.0-0.7) K/uL Baso # (Auto) (0.0-0.1) K/uL Nucleated RBC % /100WBC Nucleated RBCs # K/uL Lactate (0.20-2.00) mmol/L Sodium 140 (136-148) mmol/L Potassium 5.2 H (3.5-5.1) mmol/L Chloride 98 (98-107) mmol/L Carbon Dioxide 38.5 H (21.0-32.0) mmol/L BUN 27 H (7.0-18.0) mg/dL Creatinine 1.1 (0.8-1.3) mg/dL Est Cr Clr Drug Dosing 59.77 mL/min Estimated GFR (MDRD) > 60.0 ml/min Glucose 281 H (74-106) mg/dL Calcium 8.9 (8.5-10.1) mg/dL Total Bilirubin 0.2 (0.2-1.0) mg/dL AST 19 (15-37) IU/L ALT 21 (14-63) IU/L Alkaline Phosphatase 92 (46-116) U/L Troponin I (0.000-0.056) ng/mL B-Natriuretic Peptide (<100) PG/ML Total Protein 6.3 L (6.4-8.2) g/dL Albumin 2.8 L (3.4-5.0) g/dL Globulin 3.5 (2.6-4.0) g/dL Albumin/Globulin Ratio 0.8 L (0.9-1.6) SARS Virus RNA (PCR) (NEGATIVE) Result Diagrams: 08/15/20 05:09 08/15/20 05:09 Sepsis Event Note - Evaluation Sepsis Screening Result: No Definite Risk - Focused Exam Vital Signs: Vital Signs Temp Temp Pulse Resp BP Pulse Ox 08/15/20 07:02 98.6 F 110 H 22 H 124/66 100 08/15/20 03:00 97.8 F 109 H 25 H 147/78 H 96 08/15/20 02:22 99 F 110 H 28 H 151/80 H 98 08/15/20 01:55 98.3 F 105 H 28 H 134/58 L 98 08/15/20 01:15 110 H 28 H 145/77 H 97 08/15/20 00:34 96.8 F L 111 H 24 H 131/82 99 Problem List Initiated/Reviewed/Updated: Yes Orders Last 24hrs: Active Orders 24 hr Category Date Time Status Patient Status [ADT] Routine ADT 08/15/20 01:59 Active EKG Documentation Completion [RC] STAT Care 08/15/20 00:34 Active Telemetry Monitoring [Cardiac Monitoring] [RC] Q8H Care 08/15/20 02:21 Active Regular Diet [DIET] Diet 08/15/20 Breakfast Active CULTURE BLOOD [BC] Stat Lab 08/15/20 01:53 Received CULTURE BLOOD [BC] Stat Lab 08/15/20 01:59 Received Azithromycin [Zithromax] 500 mg Med 08/16/20 02:30 Active Sodium Chloride 0.9% [Normal Saline (AdvBag)] 250 ml IV Q24H Sodium Chloride 0.9% [Saline Flush] Med 08/15/20 00:33 Active 10 ml FLUSH ASDIRECTED PRN Sodium Chloride 0.9% [Saline Flush] Med 08/15/20 00:33 Active 2.5 ml FLUSH ASDIRECTED PRN cefTRIAXone [Rocephin in Dextrose,Iso-Osm 1 GM/50 ML] 1 Med 08/16/20 02:00 Active gm Premix Bag 1 bag IV Q24H Blood Culture x2 Reflex Set [OM.PC] Stat Ot 08/15/20 01:46 Ordered Saline Lock Insert [OM.PC] Stat Oth 08/15/20 00:33 Ordered Medication Orders Ceftriaxone Sodium/Dextrose 1 (gm/ Premix) 50 mls @ 100 mls/hr IV Q24H [facility] Azithromycin 500 mg/ Sodium (Chloride) 250 mls @ 250 mls/hr IV Q24H [facility] Sodium Chloride (Saline Flush) 10 ml FLUSH ASDIRECTED PRN PRN Reason: Keep Vein Open Sodium Chloride (Saline Flush) 2.5 ml FLUSH ASDIRECTED PRN PRN Reason: Keep Vein Open Assessment/Plan Comment:: COPD Exacerbation- Azithromycin 500mg Q24, Ceftriaxone 1g Q24, Solumedrol 125mg BID, DuoNebs, 02 support to maintain oxygen above 90%. Patient to use BiPap at night. Pneumonia- Azithromycin 500mg Q24, Ceftriaxone 1g Q24 CHF- Lasix, Metoprolol. HTN-Metoprolol Diabetes- Insulin sliding scale, Diabetic Diet
[2020-08-15] MEDS: Furosemide 40 MG Tab PO SCH (10:29)
[2020-08-15] MEDS: methylPREDNISolone Sodium Succinate 125 MG/2 ML SDV IV SCH ×2 (10:41→21:14)
[2020-08-15] MEDS: Albuterol/Ipratropium 3.0-0.5 MG/3 ML Neb Soln NEB SCH ×4 (10:49→21:37)
[2020-08-15] MEDS ORDERED: Methocarbamol 750 MG TAB PO PRN ×2 (11:04→16:15)
[2020-08-15] MEDS: Insulin Aspart 100 Units/ML 3 ML Pen SUBCUT SCH ×2 (11:51→18:02)
[2020-08-15] MEDS: Clopidogrel 75 MG Tab PO SCH (11:51)
[2020-08-15] MEDS: Tiotropium Bromide [Spiriva Respimat] 2.5 MCG INH SCH (11:53)
[2020-08-15] MEDS: Budesonide/Formoterol 160-4.5 MCG/Puff 6 GM Inhaler INH SCH ×2 (11:54→21:21)
[2020-08-15] MEDS ORDERED: Furosemide 80 MG Tab PO SCH (12:00)
[2020-08-15] MEDS ORDERED: Non-Formulary Medication 1 Each (Gabapentin 300 MG) PO SCH (12:00)
[2020-08-15] MEDS ORDERED: Ondansetron 4 MG/2 ML SDV IVPUSH PRN (12:46)
[2020-08-15] MEDS: Enoxaparin 40 MG/0.4 ML Syringe SUBCUT SCH (13:32)
[2020-08-15] MEDS: Acetaminophen 325 MG Tab PO PRN ×2 (16:11→20:00)
[2020-08-15] MEDS: Ketorolac 15 MG/ML SDV IVPUSH PRN (20:01)
[2020-08-15] MEDS ORDERED: Non-Formulary Medication 1 Each (Gabapentin 600 MG) PO SCH (21:00)
[2020-08-15] MEDS: Amitriptyline 25 MG Tab PO SCH (21:14)
[2020-08-15] MEDS: Metoprolol Tartrate 50 MG Tab PO SCH (21:14)
[2020-08-16] MEDS: Acetaminophen/HYDROcodone 325-5 MG Tab PO PRN ×3 (00:05→16:31)
[2020-08-16] MEDS: cefTRIAXone 1 GM in Premix Bag 1 BAG IV SCH (01:43)
[2020-08-16] MEDS: Albuterol/Ipratropium 3.0-0.5 MG/3 ML Neb Soln NEB SCH ×6 (01:51→21:24)
[2020-08-16] MEDS: Azithromycin 500 MG in Sodium Chloride 0.9% 250 ML IV SCH (02:03)
[2020-08-16 05:49] LABS: BLOOD UREA NITROGEN,BUN 29 mg/dL (7.0-18.0); CHLORIDE,CL 95 mmol/L (98-107); GLUCOSE RANDOM 292 mg/dL (74-106); SODIUM,NA 140 mmol/L (136-148)
[2020-08-16] MEDS: Pantoprazole 40 MG Tab.CR PO SCH (06:44)
[2020-08-16] MEDS: Insulin Aspart 100 Units/ML 3 ML Pen SUBCUT SCH ×3 (06:45→17:45)
[2020-08-16] MEDS: Ketorolac 15 MG/ML SDV IVPUSH PRN ×3 (07:00→20:43)
[2020-08-16] MEDS: Citalopram 20 MG Tab PO SCH (09:01)
[2020-08-16] MEDS: Clopidogrel 75 MG Tab PO SCH (09:01)
[2020-08-16] MEDS: Metoprolol Tartrate 50 MG Tab PO SCH ×2 (09:02→20:43)
[2020-08-16] MEDS: Aspirin 81 MG Tab.EC PO SCH (09:02)
[2020-08-16] MEDS: Spironolactone 25 MG Tab PO SCH (09:08)
[2020-08-16] MEDS: Furosemide 40 MG Tab PO SCH (09:08)
[2020-08-16] MEDS: Polyethylene Glycol 3350 Powder 17 GM Packet PO SCH (09:09)
[2020-08-16] MEDS: Budesonide/Formoterol 160-4.5 MCG/Puff 6 GM Inhaler INH SCH ×2 (09:52→22:54)
[2020-08-16] MEDS: methylPREDNISolone Sodium Succinate 125 MG/2 ML SDV IV SCH ×2 (09:59→23:01)
--- NOTE | 2020-08-16 11:55 | PCM.PN ---
- General Info Date of Service: 08/16/20 Subjective Update: Patient states that it is easier for him to breath today. He denies using the BiPap at night because it was uncomfortable. Patient states 7/10 foot pain intermittently. - Review of Systems General: Denies: Fever, Chills Pulmonary: Reports: Shortness of Breath. Denies: Pleuritic Chest Pain, Cough Cardiovascular: Reports: Dyspnea on Exertion, Edema. Denies: Chest Pain, Palpitations Gastrointestinal: Reports: Abdominal Pain, Diarrhea, Nausea Neurological: Denies: Confusion, Dizziness, Headache - Patient Data Vitals - Most Recent: Last Vital Signs Temp 97.5 F 08/16/20 07:57 Pulse 87 08/16/20 09:02 Resp 18 08/16/20 07:57 BP 119/45 L 08/16/20 09:02 Pulse Ox 90 L 08/16/20 07:57 Weight - Most Recent: 233 lb 0.458 oz I&O - Last 24 Hours: Intake & Output 08/15/20 08/16/20 08/16/20 22:59 06:59 14:59 Intake Total 480 Output Total 880 Balance -400 Lab Results Last 24 Hours: Laboratory Results - last 24 hr 08/15/20 08/15/20 08/15/20 Range/Units 11:45 13:38 16:22 WBC (4.0-11.0) K/uL RBC (4.50-5.90) M/uL Hgb (13.0-17.0) g/dL Hct (38.0-50.0) % MCV (80.0-98.0) fL MCH (27.0-32.0) pg MCHC (31.0-37.0) g/dL RDW Std Deviation (28.0-62.0) fl RDW Coeff of Rocco (11.0-15.0) % Plt Count (150-400) K/uL MPV (7.40-12.00) fL Neut % (Auto) (48.0-80.0) % Lymph % (Auto) (16.0-40.0) % [place] % (Auto) (0.0-15.0) % Eos % (Auto) (0.0-7.0) % Baso % (Auto) (0.0-1.5) % Neut # (Auto) (1.4-5.7) K/uL Lymph # (Auto) (0.6-2.4) K/uL [place] # (Auto) (0.0-0.8) K/uL Eos # (Auto) (0.0-0.7) K/uL Baso # (Auto) (0.0-0.1) K/uL Nucleated RBC % /100WBC Nucleated RBCs # K/uL ABG pH 7.344 L (7.35-7.45) ABG pCO2 78 H (35-45) mmHG ABG pO2 188 H (75-100) mmHG ABG HCO3 42 H (22-26) mEq/L ABG Total CO2 77.7 ABG Base Excess 13.3 H (-2.0-2.0) Sodium (136-148) mmol/L Potassium (3.5-5.1) mmol/L Chloride (98-107) mmol/L Carbon Dioxide (21.0-32.0) mmol/L BUN (7.0-18.0) mg/dL Creatinine (0.8-1.3) mg/dL Est Cr Clr Drug Dosing mL/min Estimated GFR (MDRD) ml/min Glucose (74-106) mg/dL POC Glucose 194 H 293 H (60-110) mg/dL Calcium (8.5-10.1) mg/dL Magnesium (1.8-2.4) mg/dL 08/16/20 08/16/20 08/16/20 Range/Units 05:11 05:11 05:46 WBC 10.60 (4.0-11.0) K/uL RBC 3.72 L (4.50-5.90) M/uL Hgb 10.6 L (13.0-17.0) g/dL Hct 35.1 L (38.0-50.0) % MCV 94.4 (80.0-98.0) fL MCH 28.5 (27.0-32.0) pg MCHC 30.2 L (31.0-37.0) g/dL RDW Std Deviation 50.4 (28.0-62.0) fl RDW Coeff of Rocco 15 (11.0-15.0) % Plt Count 292 (150-400) K/uL MPV 9.70 (7.40-12.00) fL Neut % (Auto) 86.1 H (48.0-80.0) % Lymph % (Auto) 10.5 L (16.0-40.0) % [place] % (Auto) 3.4 (0.0-15.0) % Eos % (Auto) 0.0 (0.0-7.0) % Baso % (Auto) 0.0 (0.0-1.5) % Neut # (Auto) 9.1 H (1.4-5.7) K/uL Lymph # (Auto) 1.1 (0.6-2.4) K/uL [place] # (Auto) 0.4 (0.0-0.8) K/uL Eos # (Auto) 0.0 (0.0-0.7) K/uL Baso # (Auto) 0.0 (0.0-0.1) K/uL Nucleated RBC % 0.0 /100WBC Nucleated RBCs # 0 K/uL ABG pH (7.35-7.45) ABG pCO2 (35-45) mmHG ABG pO2 (75-100) mmHG ABG HCO3 (22-26) mEq/L ABG Total CO2 ABG Base Excess (-2.0-2.0) Sodium 140 (136-148) mmol/L Potassium 5.0 (3.5-5.1) mmol/L Chloride 95 L (98-107) mmol/L Carbon Dioxide 40.0 H (21.0-32.0) mmol/L BUN 29 H (7.0-18.0) mg/dL Creatinine 1.1 (0.8-1.3) mg/dL Est Cr Clr Drug Dosing 59.77 mL/min Estimated GFR (MDRD) > 60.0 ml/min Glucose 292 H (74-106) mg/dL POC Glucose 274 H (60-110) mg/dL Calcium 9.1 (8.5-10.1) mg/dL Magnesium 1.7 L (1.8-2.4) mg/dL Jason Results Last 24 Hours: Microbiology 08/15/20 01:59 Aerobic Blood Culture - Preliminary Blood - Venous - Lab Draw NO GROWTH AFTER 1 DAY Anaerobic Blood Culture - Preliminary NO GROWTH AFTER 1 DAY 08/15/20 01:53 Aerobic Blood Culture - Preliminary Blood - Venous Anaerobic Blood Culture - Preliminary NO GROWTH AFTER 1 DAY Med Orders - Current: Current Medications Acetaminophen (Tylenol) 650 mg PO Q4H PRN PRN Reason: Pain Last Admin: 08/15/20 20:00 Dose: 650 mg Documented by: Hydrocodone Bitart/Acetaminophen ([place] 325-5 Mg) 1 tab PO Q8H PRN PRN Reason: Pain (severe 7-10) Last Admin: 08/16/20 08:59 Dose: 1 tab Documented by: Albuterol/Ipratropium (Duoneb 3.0-0.5 Mg/3 Ml) 3 ml NEB Q4HRRT [facility] Last Admin: 08/16/20 09:48 Dose: 3 ml Documented by: Amitriptyline HCl (Elavil) 25 mg PO BEDTIME [facility] Last Admin: 08/15/20 21:14 Dose: 25 mg Documented by: Aspirin (Halfprin) 81 mg PO DAILY [facility] Last Admin: 08/16/20 09:02 Dose: 81 mg Documented by: Citalopram Hydrobromide (Celexa) 10 mg PO DAILY [facility] Last Admin: 08/16/20 09:01 Dose: 10 mg Documented by: Clopidogrel Bisulfate (Plavix) 75 mg PO DAILY [facility] Last Admin: 08/16/20 09:01 Dose: 75 mg Documented by: Enoxaparin Sodium (Lovenox) 40 mg SUBCUT Q24H [facility] Last Admin: 08/15/20 13:32 Dose: 40 mg Documented by: Furosemide (Lasix) 40 mg PO DAILY [facility] Last Admin: 08/16/20 09:08 Dose: 40 mg Documented by: Ceftriaxone Sodium/Dextrose 1 (gm/ Premix) 50 mls @ 100 mls/hr IV Q24H [facility] Last Admin: 08/16/20 01:43 Dose: 100 mls/hr Documented by: Azithromycin 500 mg/ Sodium (Chloride) 250 mls @ 250 mls/hr IV Q24H [facility] Last Admin: 08/16/20 02:03 Dose: 250 mls/hr Documented by: Vancomycin HCl 1.5 gm/ Premix 300 mls @ 300 mls/hr IV Q24H [facility] Insulin Aspart (Novolog) 0 unit SUBCUT TIDAC [facility]; Protocol Last Admin: 08/16/20 06:45 Dose: 3 unit Documented by: Ketorolac Tromethamine (Toradol) 15 mg IVPUSH Q6H PRN PRN Reason: Pain Stop: 08/20/20 19:33 Last Admin: 08/16/20 07:00 Dose: 15 mg Documented by: Methylprednisolone Sodium Succinate (Solu-Medrol) 125 mg IV Q12H [facility] Last Admin: 08/16/20 09:59 Dose: 125 mg Documented by: Metoprolol Tartrate (Lopressor) 50 mg PO BID [facility] Last Admin: 08/16/20 09:02 Dose: 50 mg Documented by: Ondansetron HCl (Zofran) 4 mg IVPUSH Q4H PRN PRN Reason: Nausea/Vomiting Last Admin: 08/15/20 13:27 Dose: 4 mg Documented by: Pantoprazole Sodium (Protonix) 40 mg PO ACBREAKFAST [facility] Last Admin: 08/16/20 06:44 Dose: 40 mg Documented by: Budesonide/Formoterol 160-4.5 Mcg/Puff 6 Gm Inhaler 2 each INH BID [facility] Last Admin: 08/16/20 09:52 Dose: Not Given Documented by: Tiotropium [place] [ Spiriva Respimat] 2. 5 Mcg 1 each INH Q24H [facility] Last Admin: 08/15/20 11:53 Dose: Not Given Documented by: Methocarbamol 750 Mg (Tab) 1 each PO TID PRN PRN Reason: muscle spasms Polyethylene Glycol (Miralax) 17 gm PO DAILY [facility] Last Admin: 08/16/20 09:09 Dose: 17 gm Documented by: Sodium Chloride (Saline Flush) 10 ml FLUSH ASDIRECTED PRN PRN Reason: Keep Vein Open Sodium Chloride (Saline Flush) 2.5 ml FLUSH ASDIRECTED PRN PRN Reason: Keep Vein Open Spironolactone (Aldactone) 50 mg PO DAILY [facility] Last Admin: 08/16/20 09:08 Dose: 50 mg Documented by: Vancomycin HCl (Pharmacy To Dose - Vancomycin) 1 dose .XX ASDIRECTED [facility] Discontinued Medications Furosemide (Lasix) 40 mg PO DAILY [facility] Azithromycin 500 mg/ Sodium (Chloride) 250 mls @ 250 mls/hr IV ONETIME ONE Stop: 08/15/20 02:45 Last Admin: 08/15/20 02:15 Dose: 250 mls/hr Documented by: Ceftriaxone Sodium/Dextrose 2 (gm/ Premix) 50 mls @ 100 mls/hr IV ONETIME ONE Stop: 08/15/20 02:15 Last Admin: 08/15/20 01:57 Dose: 100 mls/hr Documented by: Vancomycin HCl 1.5 gm/ Premix 300 mls @ 300 mls/hr IV ONETIME ONE Stop: 08/16/20 03:29 Last Admin: 08/16/20 03:38 Dose: 300 mls/hr Documented by: Methocarbamol (Methocarbamol) 750 mg PO TID PRN PRN Reason: muscle spasms - Exam General: Alert, Oriented HEENT: EOMI Lungs: Rales, Wheezing. No: Normal Respiratory Effort Cardiovascular: Regular Rate, Regular Rhythm GI/Abdominal Exam: Soft, Non-Tender, No Distention Extremities: Pedal Edema Psy/Mental Status: Alert Sepsis Event Note - Evaluation Sepsis Screening Result: No Definite Risk - Focused Exam Vital Signs: Vital Signs Temp Pulse Pulse Resp BP BP Pulse Ox 08/16/20 09:02 87 119/45 L 08/16/20 07:57 97.5 F 98 18 106/64 90 L 08/16/20 04:15 96.6 F L 87 19 119/59 L 97 08/16/20 00:33 96.1 F L 95 20 94/64 99 - Problem List Review Problem List Initiated/Reviewed/Updated: Yes - My Orders Last 24 Hours: My Active Orders 08/15/20 Lunch [employer] Diet [DIET] 08/15/20 11:10 RT Post Treatment Assessment [RC] Click to Edit RT Pre-Treatment Assessment [RC] Click to Edit 08/15/20 11:15 Patient's Own Medication [Ptom] 1 each INH Q24H 08/15/20 11:30 Insulin Aspart [NovoLOG] See Protocol SUBCUT TIDAC 08/15/20 12:00 Clopidogrel [Plavix] 75 mg PO DAILY Patient's Own Medication [Ptom] 2 each INH BID 08/15/20 12:46 Ondansetron [Zofran] 4 mg IVPUSH Q4H PRN 08/15/20 13:15 Enoxaparin [Lovenox] 40 mg SUBCUT Q24H 08/15/20 15:27 Acetaminophen [TylenoL] 650 mg PO Q4H PRN 08/15/20 16:15 Patient's Own Medication [Ptom] 1 each PO TID PRN 08/15/20 17:40 Code Status [Resuscitation Status] Routine 08/15/20 19:32 Ketorolac [Toradol] 15 mg IVPUSH Q6H PRN 08/15/20 21:00 RT BiPAP/CPAP [RC] ASDIRECTED Amitriptyline [Elavil] 25 mg PO BEDTIME Metoprolol Tartrate [Lopressor] 50 mg PO BID 08/16/20 07:30 Pantoprazole [ProTONIX] 40 mg PO ACBREAKFAST 08/16/20 09:00 Aspirin [Halfprin] 81 mg PO DAILY Citalopram [Celexa] 10 mg PO DAILY Spironolactone [Aldactone] 50 mg PO DAILY polyethylene glycoL 3350 [MiraLAX] 17 gm PO DAILY - Plan Plan:: COPD Exacerbation- Resume Azithromycin 500mg Q24, Ceftriaxone 1g Q24, Solumedrol 125mg BID, DuoNebs, 02 support to maintain oxygen above 90%. Patient to use BiPap at night. Bacteremia- Patient started on Vancomycin due to Gram + cocci on preliminary blood culture. CHF- Lasix, Metoprolol. HTN-Metoprolol Diabetes- Insulin sliding scale, Diabetic Diet
[2020-08-16] MEDS: Tiotropium Bromide [Spiriva Respimat] 2.5 MCG INH SCH (12:21)
[2020-08-16] MEDS: Enoxaparin 40 MG/0.4 ML Syringe SUBCUT SCH (13:30)
[2020-08-16] MEDS ORDERED: Insulin Aspart 100 Units/ML 3 ML Pen SUBCUT STA (16:36)
[2020-08-16] MEDS: Amitriptyline 25 MG Tab PO SCH (20:43)
[2020-08-16] MEDS: Acetaminophen 325 MG Tab PO PRN (23:01)
[2020-08-17] MEDS: Acetaminophen/HYDROcodone 325-5 MG Tab PO PRN ×3 (00:44→18:12)
[2020-08-17] MEDS: Albuterol/Ipratropium 3.0-0.5 MG/3 ML Neb Soln NEB SCH ×6 (02:26→21:23)
[2020-08-17] MEDS: cefTRIAXone 1 GM in Premix Bag 1 BAG IV SCH (02:27)
[2020-08-17] MEDS: Azithromycin 500 MG in Sodium Chloride 0.9% 250 ML IV SCH (03:04)
[2020-08-17] MEDS ORDERED: Diltiazem 25 MG/5 ML SDV IVPUSH ONE (03:22)
[2020-08-17] MEDS: Diltiazem 25 MG/5 ML SDV IVPUSH PRN (05:22)
[2020-08-17 06:41] LABS: BLOOD UREA NITROGEN,BUN 39 mg/dL (7.0-18.0); CARBON DIOXIDE,CO2 36.8 mmol/L (21.0-32.0); CHLORIDE,CL 96 mmol/L (98-107); GLUCOSE RANDOM 416 mg/dL (74-106); POTASSIUM,K 4.6 mmol/L (3.5-5.1); SODIUM,NA 137 mmol/L (136-148)
[2020-08-17] MEDS ORDERED: Insulin Aspart 100 Units/ML 3 ML Pen SUBCUT STA (08:02)
[2020-08-17] MEDS: Insulin Aspart 100 Units/ML 3 ML Pen SUBCUT SCH ×3 (08:21→18:09)
[2020-08-17] MEDS: Metoprolol Tartrate 50 MG Tab PO SCH ×2 (08:24→20:36)
[2020-08-17] MEDS: Furosemide 40 MG Tab PO SCH (08:25)
[2020-08-17] MEDS: Clopidogrel 75 MG Tab PO SCH (08:25)
[2020-08-17] MEDS: Aspirin 81 MG Tab.EC PO SCH (08:25)
[2020-08-17] MEDS: Spironolactone 25 MG Tab PO SCH (08:25)
[2020-08-17] MEDS: Pantoprazole 40 MG Tab.CR PO SCH (08:25)
[2020-08-17] MEDS: Citalopram 20 MG Tab PO SCH (08:25)
[2020-08-17] MEDS: Polyethylene Glycol 3350 Powder 17 GM Packet PO SCH (08:27)
[2020-08-17] MEDS: Budesonide/Formoterol 160-4.5 MCG/Puff 6 GM Inhaler INH SCH ×2 (08:30→21:41)
[2020-08-17] MEDS: methylPREDNISolone Sodium Succinate 125 MG/2 ML SDV IV SCH (10:20)
[2020-08-17] MEDS: Enoxaparin 40 MG/0.4 ML Syringe SUBCUT SCH (13:10)
[2020-08-17] MEDS: Tiotropium Bromide [Spiriva Respimat] 2.5 MCG INH SCH (13:11)
[2020-08-17] MEDS: Ketorolac 15 MG/ML SDV IVPUSH PRN ×2 (14:46→21:54)
[2020-08-17] MEDS: methylPREDNISolone Sodium Succinate 40 MG/1 ML SDV IV SCH ×2 (14:46→20:37)
--- NOTE | 2020-08-17 15:07 | PCM.PN ---
<Ady Smith - Last Filed: 08/17/20 15:44> - General Info Date of Service: 08/17/20 Subjective Update: Patient states that he has increased shortness of breath and feels weak this morning. Patient also states that he didn't sleep well. Denies fever, chills, nausea. States pain in feet bilaterally. - Review of Systems General: Reports: Weakness, Fatigue. Denies: Fever, Chills HEENT: Denies: Headaches Pulmonary: Reports: Shortness of Breath. Denies: Pleuritic Chest Pain, Cough Cardiovascular: Reports: Dyspnea on Exertion. Denies: Chest Pain, Palpitations Gastrointestinal: Denies: Abdominal Pain, Nausea, Vomiting Musculoskeletal: Reports: Foot Pain (bilateraly) Skin: Reports: Cyanosis (right foot) Neurological: Denies: Confusion - Patient Data Vitals - Most Recent: Last Vital Signs Temp 99.0 F 08/17/20 12:00 Pulse 76 08/17/20 12:00 Resp 24 H 08/17/20 12:00 BP 130/61 08/17/20 12:00 Pulse Ox 99 08/17/20 12:00 Weight - Most Recent: 107.5 kg I&O - Last 24 Hours: Intake & Output 08/17/20 08/17/20 08/17/20 06:59 14:59 22:59 Intake Total 400 Output Total 500 Balance -100 Lab Results Last 24 Hours: Laboratory Results - last 24 hr 08/16/20 08/17/20 08/17/20 Range/Units 16:22 05:52 05:52 WBC 12.24 H (4.0-11.0) K/uL RBC 3.75 L (4.50-5.90) M/uL Hgb 10.5 L (13.0-17.0) g/dL Hct 34.8 L (38.0-50.0) % MCV 92.8 (80.0-98.0) fL MCH 28.0 (27.0-32.0) pg MCHC 30.2 L (31.0-37.0) g/dL RDW Std Deviation 49.9 (28.0-62.0) fl RDW Coeff of Rocco 15 (11.0-15.0) % Plt Count 300 (150-400) K/uL MPV 10.00 (7.40-12.00) fL Neut % (Auto) 90.3 H (48.0-80.0) % Lymph % (Auto) 6.0 L (16.0-40.0) % Meigs % (Auto) 3.7 (0.0-15.0) % Eos % (Auto) 0.0 (0.0-7.0) % Baso % (Auto) 0.0 (0.0-1.5) % Neut # (Auto) 11.1 H (1.4-5.7) K/uL Lymph # (Auto) 0.7 (0.6-2.4) K/uL [place] # (Auto) 0.5 (0.0-0.8) K/uL Eos # (Auto) 0.0 (0.0-0.7) K/uL Baso # (Auto) 0.0 (0.0-0.1) K/uL Nucleated RBC % 0.0 /100WBC Nucleated RBCs # 0 K/uL Sodium 137 (136-148) mmol/L Potassium 4.6 (3.5-5.1) mmol/L Chloride 96 L (98-107) mmol/L Carbon Dioxide 36.8 H (21.0-32.0) mmol/L BUN 39 H (7.0-18.0) mg/dL Creatinine 1.1 (0.8-1.3) mg/dL Est Cr Clr Drug Dosing 59.77 mL/min Estimated GFR (MDRD) > 60.0 ml/min Glucose 416 H (74-106) mg/dL POC Glucose 433 H (60-110) mg/dL Calcium 8.7 (8.5-10.1) mg/dL 08/17/20 08/17/20 08/17/20 Range/Units 07:37 08:53 11:11 WBC (4.0-11.0) K/uL RBC (4.50-5.90) M/uL Hgb (13.0-17.0) g/dL Hct (38.0-50.0) % MCV (80.0-98.0) fL MCH (27.0-32.0) pg MCHC (31.0-37.0) g/dL RDW Std Deviation (28.0-62.0) fl RDW Coeff of Rocco (11.0-15.0) % Plt Count (150-400) K/uL MPV (7.40-12.00) fL Neut % (Auto) (48.0-80.0) % Lymph % (Auto) (16.0-40.0) % [place] % (Auto) (0.0-15.0) % Eos % (Auto) (0.0-7.0) % Baso % (Auto) (0.0-1.5) % Neut # (Auto) (1.4-5.7) K/uL Lymph # (Auto) (0.6-2.4) K/uL [place]igs # (Auto) (0.0-0.8) K/uL Eos # (Auto) (0.0-0.7) K/uL Baso # (Auto) (0.0-0.1) K/uL Nucleated RBC % /100WBC Nucleated RBCs # K/uL Sodium (136-148) mmol/L Potassium (3.5-5.1) mmol/L Chloride (98-107) mmol/L Carbon Dioxide (21.0-32.0) mmol/L BUN (7.0-18.0) mg/dL Creatinine (0.8-1.3) mg/dL Est Cr Clr Drug Dosing mL/min Estimated GFR (MDRD) ml/min Glucose (74-106) mg/dL POC Glucose 426 H 425 H 405 H (60-110) mg/dL Calcium (8.5-10.1) mg/dL 08/17/20 Range/Units 13:17 WBC (4.0-11.0) K/uL RBC (4.50-5.90) M/uL Hgb (13.0-17.0) g/dL Hct (38.0-50.0) % MCV (80.0-98.0) fL MCH (27.0-32.0) pg MCHC (31.0-37.0) g/dL RDW Std Deviation (28.0-62.0) fl RDW Coeff of Rocco (11.0-15.0) % Plt Count (150-400) K/uL MPV (7.40-12.00) fL Neut % (Auto) (48.0-80.0) % Lymph % (Auto) (16.0-40.0) % [place] % (Auto) (0.0-15.0) % Eos % (Auto) (0.0-7.0) % Baso % (Auto) (0.0-1.5) % Neut # (Auto) (1.4-5.7) K/uL Lymph # (Auto) (0.6-2.4) K/uL [place] # (Auto) (0.0-0.8) K/uL Eos # (Auto) (0.0-0.7) K/uL Baso # (Auto) (0.0-0.1) K/uL Nucleated RBC % /100WBC Nucleated RBCs # K/uL Sodium (136-148) mmol/L Potassium (3.5-5.1) mmol/L Chloride (98-107) mmol/L Carbon Dioxide (21.0-32.0) mmol/L BUN (7.0-18.0) mg/dL Creatinine (0.8-1.3) mg/dL Est Cr Clr Drug Dosing mL/min Estimated GFR (MDRD) ml/min Glucose (74-106) mg/dL POC Glucose 371 H (60-110) mg/dL Calcium (8.5-10.1) mg/dL Jason Results Last 24 Hours: Microbiology 08/15/20 01:53 Aerobic Blood Culture - Preliminary Blood - Venous Anaerobic Blood Culture - Preliminary NO GROWTH AFTER 2 DAYS 08/15/20 01:59 Aerobic Blood Culture - Preliminary Blood - Venous - Lab Draw NO GROWTH AFTER 2 DAYS Anaerobic Blood Culture - Preliminary NO GROWTH AFTER 2 DAYS Med Orders - Current: Current Medications Acetaminophen (Tylenol) 650 mg PO Q4H PRN PRN Reason: Pain Last Admin: 08/16/20 23:01 Dose: 650 mg Documented by: Hydrocodone Bitart/Acetaminophen ([place] 325-5 Mg) 1 tab PO Q8H PRN PRN Reason: Pain (severe 7-10) Last Admin: 08/17/20 10:07 Dose: 1 tab Documented by: Albuterol/Ipratropium (Duoneb 3.0-0.5 Mg/3 Ml) 3 ml NEB Q4HRRT [facility] Last Admin: 08/17/20 13:28 Dose: 3 ml Documented by: Amitriptyline HCl (Elavil) 25 mg PO BEDTIME [facility] Last Admin: 08/16/20 20:43 Dose: 25 mg Documented by: Aspirin (Halfprin) 81 mg PO DAILY [facility] Last Admin: 08/17/20 08:25 Dose: 81 mg Documented by: Citalopram Hydrobromide (Celexa) 10 mg PO DAILY [facility] Last Admin: 08/17/20 08:25 Dose: 10 mg Documented by: Clopidogrel Bisulfate (Plavix) 75 mg PO DAILY [facility] Last Admin: 08/17/20 08:25 Dose: 75 mg Documented by: Diltiazem HCl (Diltiazem) 20 mg IVPUSH Q2H PRN PRN Reason: Tachycardia Last Admin: 08/17/20 05:22 Dose: 20 mg Documented by: Enoxaparin Sodium (Lovenox) 40 mg SUBCUT Q24H [facility] Last Admin: 08/17/20 13:10 Dose: 40 mg Documented by: Furosemide (Lasix) 40 mg PO DAILY [facility] Last Admin: 08/17/20 08:25 Dose: 40 mg Documented by: Ceftriaxone Sodium/Dextrose 1 (gm/ Premix) 50 mls @ 100 mls/hr IV Q24H [facility] Last Admin: 08/17/20 02:27 Dose: 100 mls/hr Documented by: Azithromycin 500 mg/ Sodium (Chloride) 250 mls @ 250 mls/hr IV Q24H [facility] Last Admin: 08/17/20 03:04 Dose: 250 mls/hr Documented by: Vancomycin HCl 1.5 gm/ Premix 300 mls @ 300 mls/hr IV Q24H [facility] Last Admin: 08/16/20 20:43 Dose: 300 mls/hr Documented by: Insulin Aspart (Novolog) 0 unit SUBCUT TIDAC [facility]; Protocol Last Admin: 08/17/20 13:18 Dose: 15 units Documented by: Ketorolac Tromethamine (Toradol) 15 mg IVPUSH Q6H PRN PRN Reason: Pain Stop: 08/20/20 19:33 Last Admin: 08/17/20 14:46 Dose: 15 mg Documented by: Methylprednisolone Sodium Succinate (Solu-Medrol) 40 mg IV Q8H [facility] Last Admin: 08/17/20 14:46 Dose: 40 mg Documented by: Metoprolol Tartrate (Lopressor) 50 mg PO BID [facility] Last Admin: 08/17/20 08:24 Dose: 50 mg Documented by: Ondansetron HCl (Zofran) 4 mg IVPUSH Q4H PRN PRN Reason: Nausea/Vomiting Last Admin: 08/15/20 13:27 Dose: 4 mg Documented by: Pantoprazole Sodium (Protonix) 40 mg PO ACBREAKFAST [facility] Last Admin: 08/17/20 08:25 Dose: 40 mg Documented by: Budesonide/Formoterol 160-4.5 Mcg/Puff 6 Gm Inhaler 2 each INH BID [facility] Last Admin: 08/17/20 08:30 Dose: Not Given Documented by: Tiotropium [place] [ Spiriva Respimat] 2. 5 Mcg 1 each INH Q24H [facility] Last Admin: 08/17/20 13:11 Dose: Not Given Documented by: Methocarbamol 750 Mg (Tab) 1 each PO TID PRN PRN Reason: muscle spasms Polyethylene Glycol (Miralax) 17 gm PO DAILY [facility] Last Admin: 08/17/20 08:27 Dose: 17 gm Documented by: Sodium Chloride (Saline Flush) 10 ml FLUSH ASDIRECTED PRN PRN Reason: Keep Vein Open Sodium Chloride (Saline Flush) 2.5 ml FLUSH ASDIRECTED PRN PRN Reason: Keep Vein Open Spironolactone (Aldactone) 50 mg PO DAILY [facility] Last Admin: 08/17/20 08:25 Dose: 50 mg Documented by: Vancomycin HCl (Pharmacy To Dose - Vancomycin) 1 dose .XX ASDIRECTED [facility] Discontinued Medications Diltiazem HCl (Diltiazem) 20 mg IVPUSH ONETIME ONE Stop: 08/17/20 03:23 Last Admin: 08/17/20 03:33 Dose: 20 mg Documented by: Furosemide (Lasix) 40 mg PO DAILY [facility] Azithromycin 500 mg/ Sodium (Chloride) 250 mls @ 250 mls/hr IV ONETIME ONE Stop: 08/15/20 02:45 Last Admin: 08/15/20 02:15 Dose: 250 mls/hr Documented by: Ceftriaxone Sodium/Dextrose 2 (gm/ Premix) 50 mls @ 100 mls/hr IV ONETIME ONE Stop: 08/15/20 02:15 Last Admin: 08/15/20 01:57 Dose: 100 mls/hr Documented by: Vancomycin HCl 1.5 gm/ Premix 300 mls @ 300 mls/hr IV ONETIME ONE Stop: 08/16/20 03:29 Last Admin: 08/16/20 03:38 Dose: 300 mls/hr Documented by: Insulin Aspart (Novolog) 0 unit SUBCUT TIDAC [facility]; Protocol Last Admin: 08/16/20 12:20 Dose: 4 unit Documented by: Insulin Aspart (Novolog) 12 unit SUBCUT NOW STA Stop: 08/16/20 16:37 Last Admin: 08/16/20 17:37 Dose: 12 units Documented by: Insulin Aspart (Novolog) 7 unit SUBCUT NOW STA Stop: 08/17/20 08:03 Last Admin: 08/17/20 08:23 Dose: 7 units Documented by: Methocarbamol (Methocarbamol) 750 mg PO TID PRN PRN Reason: muscle spasms Methylprednisolone Sodium Succinate (Solu-Medrol) 125 mg IV Q12H [facility] Last Admin: 08/17/20 10:20 Dose: 125 mg Documented by: - Exam General: Mild Distress, Lethargic Lungs: Rales, Wheezing. No: Normal Respiratory Effort Cardiovascular: Regular Rate, Regular Rhythm GI/Abdominal Exam: Soft, Non-Tender, No Distention Extremities: Pedal Edema, Leg Pain (both feet), Other (right foot is cool to touch and apppears cynaotic. Patient staes this is normal) Psy/Mental Status: Alert Sepsis Event Note - Evaluation Sepsis Screening Result: No Definite Risk - Focused Exam Vital Signs: Vital Signs Temp Pulse Pulse Resp BP BP Pulse Ox 08/17/20 12:00 99.0 F 76 24 H 130/61 99 08/17/20 08:29 98.2 F 98 22 H 118/64 92 L 08/17/20 08:24 98 118/64 - Problem List Review Problem List Initiated/Reviewed/Updated: Yes - My Orders Last 24 Hours: My Active Orders 08/17/20 13:30 methylPREDNISolone Sod Succ [Solu-MEDROL] 40 mg IV Q8H 08/17/20 13:32 Blood Culture x2 Reflex Set [OM.PC] Stat 08/17/20 13:50 CULTURE BLOOD [BC] Stat 08/17/20 13:56 CULTURE BLOOD [BC] Stat 08/17/20 14:22 Art Duplex Lwr Ext Ltd [US] Urgent 08/17/20 14:28 Neurovascular Check [RC] BID 08/17/20 Dinner Fluid Restriction [DIET] - Plan Plan:: COPD Exacerbation- Resume Azithromycin 500mg Q24, Ceftriaxone 1g Q24, Solumedrol 40mg q8hrs, DuoNebs, 02 support to maintain oxygen above 90%. ABG performed yesterday showed ph 7.34, pco2 78. Patient has been using BiPap throughout the day as he does not tolerate it at night while sleeping. Patient has been encouraged to sit up and use Incentive spirometer Bacteremia- Patient started on Vancomycin due to Gram + cocci on preliminary blood culture. Blood cultures X 2 REPEATED CHF- Lasix, Metoprolol. HTN-Metoprolol Diabetes- Insulin sliding scale, Diabetic Diet <Carmen Tineo - Last Filed: 08/19/20 13:33> - Patient Data Vitals - Most Recent: Last Vital Signs Temp 36.7 C 08/19/20 11:00 Pulse 84 08/19/20 11:00 Resp 25 H 08/19/20 11:00 BP 141/77 H 08/19/20 11:00 Pulse Ox 98 08/19/20 11:00 I&O - Last 24 Hours: Intake & Output 08/18/20 08/19/20 08/19/20 22:59 06:59 14:59 Intake Total 250 300 Output Total 430 450 Balance -180 -150 Lab Results Last 24 Hours: Laboratory Results - last 24 hr 08/18/20 08/18/20 08/18/20 Range/Units 12:38 14:03 17:14 WBC (4.0-11.0) K/uL RBC (4.50-5.90) M/uL Hgb (13.0-17.0) g/dL Hct (38.0-50.0) % MCV (80.0-98.0) fL MCH (27.0-32.0) pg MCHC (31.0-37.0) g/dL RDW Std Deviation (28.0-62.0) fl RDW Coeff of Rocco (11.0-15.0) % Plt Count (150-400) K/uL MPV (7.40-12.00) fL Neut % (Auto) (48.0-80.0) % Lymph % (Auto) (16.0-40.0) % Meigs % (Auto) (0.0-15.0) % Eos % (Auto) (0.0-7.0) % Baso % (Auto) (0.0-1.5) % Neut # (Auto) (1.4-5.7) K/uL Lymph # (Auto) (0.6-2.4) K/uL Meigs # (Auto) (0.0-0.8) K/uL Eos # (Auto) (0.0-0.7) K/uL Baso # (Auto) (0.0-0.1) K/uL Nucleated RBC % /100WBC Nucleated RBCs # K/uL Sodium (136-148) mmol/L Potassium (3.5-5.1) mmol/L Chloride (98-107) mmol/L Carbon Dioxide (21.0-32.0) mmol/L BUN (7.0-18.0) mg/dL Creatinine (0.8-1.3) mg/dL Est Cr Clr Drug Dosing mL/min Estimated GFR (MDRD) ml/min Glucose (74-106) mg/dL POC Glucose 418 H 331 H 279 H (60-110) mg/dL Calcium (8.5-10.1) mg/dL Phosphorus (2.6-4.7) mg/dL Magnesium (1.8-2.4) mg/dL Troponin I (0.000-0.056) ng/mL 08/19/20 08/19/20 08/19/20 Range/Units 04:00 04:00 04:00 WBC 13.04 H (4.0-11.0) K/uL RBC 4.23 L (4.50-5.90) M/uL Hgb 12.1 L (13.0-17.0) g/dL Hct 39.5 (38.0-50.0) % MCV 93.4 (80.0-98.0) fL MCH 28.6 (27.0-32.0) pg MCHC 30.6 L (31.0-37.0) g/dL RDW Std Deviation 50.9 (28.0-62.0) fl RDW Coeff of Rocco 15 (11.0-15.0) % Plt Count 338 (150-400) K/uL MPV 9.90 (7.40-12.00) fL Neut % (Auto) 81.2 H (48.0-80.0) % Lymph % (Auto) 10.7 L (16.0-40.0) % Meigs % (Auto) 8.1 (0.0-15.0) % Eos % (Auto) 0.0 (0.0-7.0) % Baso % (Auto) 0.0 (0.0-1.5) % Neut # (Auto) 10.6 H (1.4-5.7) K/uL Lymph # (Auto) 1.4 (0.6-2.4) K/uL Meigs # (Auto) 1.1 H (0.0-0.8) K/uL Eos # (Auto) 0.0 (0.0-0.7) K/uL Baso # (Auto) 0.0 (0.0-0.1) K/uL Nucleated RBC % 0.0 /100WBC Nucleated RBCs # 0 K/uL Sodium 140 (136-148) mmol/L Potassium 4.7 (3.5-5.1) mmol/L Chloride 99 (98-107) mmol/L Carbon Dioxide 38.9 H (21.0-32.0) mmol/L BUN 45 H (7.0-18.0) mg/dL Creatinine 1.2 (0.8-1.3) mg/dL Est Cr Clr Drug Dosing 54.79 mL/min Estimated GFR (MDRD) 58.4 ml/min Glucose 366 H (74-106) mg/dL POC Glucose (60-110) mg/dL Calcium 8.8 (8.5-10.1) mg/dL Phosphorus 4.8 H (2.6-4.7) mg/dL Magnesium 2.0 (1.8-2.4) mg/dL Troponin I (0.000-0.056) ng/mL 08/19/20 08/19/20 08/19/20 Range/Units 07:21 11:18 11:31 WBC (4.0-11.0) K/uL RBC (4.50-5.90) M/uL Hgb (13.0-17.0) g/dL Hct (38.0-50.0) % MCV (80.0-98.0) fL MCH (27.0-32.0) pg MCHC (31.0-37.0) g/dL RDW Std Deviation (28.0-62.0) fl RDW Coeff of Rocco (11.0-15.0) % Plt Count (150-400) K/uL MPV (7.40-12.00) fL Neut % (Auto) (48.0-80.0) % Lymph % (Auto) (16.0-40.0) % [place] % (Auto) (0.0-15.0) % Eos % (Auto) (0.0-7.0) % Baso % (Auto) (0.0-1.5) % Neut # (Auto) (1.4-5.7) K/uL Lymph # (Auto) (0.6-2.4) K/uL [place]igs # (Auto) (0.0-0.8) K/uL Eos # (Auto) (0.0-0.7) K/uL Baso # (Auto) (0.0-0.1) K/uL Nucleated RBC % /100WBC Nucleated RBCs # K/uL Sodium (136-148) mmol/L Potassium (3.5-5.1) mmol/L Chloride (98-107) mmol/L Carbon Dioxide (21.0-32.0) mmol/L BUN (7.0-18.0) mg/dL Creatinine (0.8-1.3) mg/dL Est Cr Clr Drug Dosing mL/min Estimated GFR (MDRD) ml/min Glucose (74-106) mg/dL POC Glucose 336 H 321 H (60-110) mg/dL Calcium (8.5-10.1) mg/dL Phosphorus (2.6-4.7) mg/dL Magnesium (1.8-2.4) mg/dL Troponin I < 0.050 (0.000-0.056) ng/mL Jason Results Last 24 Hours: Microbiology 08/15/20 01:59 Aerobic Blood Culture - Preliminary Blood - Venous - Lab Draw NO GROWTH AFTER 4 DAYS Anaerobic Blood Culture - Preliminary NO GROWTH AFTER 4 DAYS 08/17/20 13:56 Aerobic Blood Culture - Preliminary Blood - Venous - Lab Draw NO GROWTH AFTER 1 DAY Anaerobic Blood Culture - Preliminary NO GROWTH AFTER 1 DAY 08/17/20 13:50 Aerobic Blood Culture - Preliminary Blood - Venous NO GROWTH AFTER 1 DAY Anaerobic Blood Culture - Preliminary NO GROWTH AFTER 1 DAY 08/15/20 01:53 Aerobic Blood Culture - Preliminary Blood - Venous Anaerobic Blood Culture - Preliminary Med Orders - Current: Current Medications Acetaminophen (Tylenol) 650 mg PO Q4H PRN PRN Reason: Pain Last Admin: 08/16/20 23:01 Dose: 650 mg Documented by: Hydrocodone Bitart/Acetaminophen ([place] 325-5 Mg) 1 tab PO Q8H PRN PRN Reason: Pain (severe 7-10) Last Admin: 08/19/20 07:23 Dose: 1 tab Documented by: Amiodarone HCl (Cordarone) 100 mg PO DAILY [facility] Last Admin: 08/19/20 11:51 Dose: 100 mg Documented by: Amitriptyline HCl (Elavil) 25 mg PO BEDTIME [facility] Last Admin: 08/18/20 21:44 Dose: 25 mg Documented by: Aspirin (Halfprin) 81 mg PO DAILY [facility] Last Admin: 08/19/20 08:47 Dose: 81 mg Documented by: Budesonide/Formoterol Fumarate (Symbicort 160-4.5 Mcg) 0 gm INH BID [facility] Last Admin: 08/19/20 10:21 Dose: Not Given Documented by: Citalopram Hydrobromide (Celexa) 10 mg PO DAILY [facility] Last Admin: 08/19/20 08:47 Dose: 10 mg Documented by: Clopidogrel Bisulfate (Plavix) 75 mg PO DAILY [facility] Last Admin: 08/19/20 08:52 Dose: 75 mg Documented by: Diltiazem HCl (Diltiazem) 20 mg IVPUSH Q2H PRN PRN Reason: Tachycardia Last Admin: 08/19/20 03:39 Dose: 20 mg Documented by: Enoxaparin Sodium (Lovenox) 40 mg SUBCUT Q24H [facility] Last Admin: 08/19/20 12:31 Dose: 40 mg Documented by: Enoxaparin Sodium (Lovenox) 100 mg SUBCUT BID [facility] Furosemide (Lasix) 40 mg PO DAILY [facility] Last Admin: 08/19/20 08:47 Dose: 40 mg Documented by: Ceftriaxone Sodium/Dextrose 1 (gm/ Premix) 50 mls @ 100 mls/hr IV Q24H [facility] Last Admin: 08/19/20 02:27 Dose: 100 mls/hr Documented by: Azithromycin 500 mg/ Sodium (Chloride) 250 mls @ 250 mls/hr IV Q24H [facility] Last Admin: 08/19/20 04:10 Dose: 250 mls/hr Documented by: Insulin Aspart (Novolog) 0 unit SUBCUT TIDAC [facility]; Protocol Last Admin: 08/19/20 12:31 Dose: 12 units Documented by: Ipratropium [place] (Atrovent) 0.5 mg NEB Q6HRRT [facility] Ketorolac Tromethamine (Toradol) 15 mg IVPUSH Q6H PRN PRN Reason: Pain Stop: 08/20/20 19:33 Last Admin: 08/18/20 23:56 Dose: 15 mg Documented by: Methylprednisolone Sodium Succinate (Solu-Medrol) 40 mg IV Q12H [facility] Last Admin: 08/19/20 02:22 Dose: 40 mg Documented by: Metoprolol Tartrate (Lopressor) 100 mg PO BID [facility] Last Admin: 08/19/20 08:47 Dose: 100 mg Documented by: Ondansetron HCl (Zofran) 4 mg IVPUSH Q4H PRN PRN Reason: Nausea/Vomiting Last Admin: 08/15/20 13:27 Dose: 4 mg Documented by: Pantoprazole Sodium (Protonix) 40 mg PO ACBREAKFAST [facility] Last Admin: 08/19/20 07:23 Dose: 40 mg Documented by: Budesonide/Formoterol 160-4.5 Mcg/Puff 6 Gm Inhaler 2 each INH BID [facility] Last Admin: 08/19/20 10:20 Dose: Not Given Documented by: Tiotropium [place] [ Spiriva Respimat] 2. 5 Mcg 1 each INH Q24H [facility] Last Admin: 08/19/20 12:30 Dose: Not Given Documented by: Methocarbamol 750 Mg (Tab) 1 each PO TID PRN PRN Reason: muscle spasms Polyethylene Glycol (Miralax) 17 gm PO DAILY [facility] Last Admin: 08/19/20 08:47 Dose: 17 gm Documented by: Sodium Chloride (Saline Flush) 10 ml FLUSH ASDIRECTED PRN PRN Reason: Keep Vein Open Sodium Chloride (Saline Flush) 2.5 ml FLUSH ASDIRECTED PRN PRN Reason: Keep Vein Open Spironolactone (Aldactone) 50 mg PO DAILY [facility] Last Admin: 08/19/20 08:47 Dose: 50 mg Documented by: Vancomycin HCl (Pharmacy To Dose - Vancomycin) 1 dose .XX ASDIRECTED [facility] Discontinued Medications Albuterol/Ipratropium (Duoneb 3.0-0.5 Mg/3 Ml) 3 ml NEB Q4HRRT [facility] Last Admin: 08/18/20 17:54 Dose: 3 ml Documented by: Diltiazem HCl (Diltiazem) 20 mg IVPUSH ONETIME ONE Stop: 08/17/20 03:23 Last Admin: 08/17/20 03:33 Dose: 20 mg Documented by: Furosemide (Lasix) 40 mg PO DAILY [facility] Furosemide (Lasix) 20 mg IVPUSH NOW ONE Stop: 08/19/20 13:05 Azithromycin 500 mg/ Sodium (Chloride) 250 mls @ 250 mls/hr IV ONETIME ONE Stop: 08/15/20 02:45 Last Admin: 08/15/20 02:15 Dose: 250 mls/hr Documented by: Ceftriaxone Sodium/Dextrose 2 (gm/ Premix) 50 mls @ 100 mls/hr IV ONETIME ONE Stop: 08/15/20 02:15 Last Admin: 08/15/20 01:57 Dose: 100 mls/hr Documented by: Vancomycin HCl 1.5 gm/ Premix 300 mls @ 300 mls/hr IV ONETIME ONE Stop: 08/16/20 03:29 Last Admin: 08/16/20 03:38 Dose: 300 mls/hr Documented by: Vancomycin HCl 1.5 gm/ Premix 300 mls @ 300 mls/hr IV Q24H [facility] Last Admin: 08/18/20 20:40 Dose: 300 mls/hr Documented by: Amiodarone HCl 300 mg/ (Dextrose/Water) 106 mls @ 300 mls/hr IV .BOLUS ONE Stop: 08/19/20 04:08 Insulin Aspart (Novolog) 0 unit SUBCUT TIDAC [facility]; Protocol Last Admin: 08/16/20 12:20 Dose: 4 unit Documented by: Insulin Aspart (Novolog) 12 unit SUBCUT NOW STA Stop: 08/16/20 16:37 Last Admin: 08/16/20 17:37 Dose: 12 units Documented by: Insulin Aspart (Novolog) 7 unit SUBCUT NOW STA Stop: 08/17/20 08:03 Last Admin: 08/17/20 08:23 Dose: 7 units Documented by: Lorazepam (Ativan) 0.5 mg IVPUSH ONETIME ONE Stop: 08/19/20 11:58 Last Admin: 08/19/20 12:31 Dose: 0.5 mg Documented by: Methocarbamol (Methocarbamol) 750 mg PO TID PRN PRN Reason: muscle spasms Methylprednisolone Sodium Succinate (Solu-Medrol) 125 mg IV Q12H [facility] Last Admin: 08/17/20 10:20 Dose: 125 mg Documented by: Methylprednisolone Sodium Succinate (Solu-Medrol) 40 mg IV Q8H [facility] Last Admin: 08/18/20 04:40 Dose: 40 mg Documented by: Metoprolol Succinate (Toprol Xl) 50 mg PO ONETIME ONE Stop: 08/18/20 10:48 Last Admin: 08/18/20 11:24 Dose: 50 mg Documented by: Metoprolol Tartrate (Lopressor) 50 mg PO BID [facility] Last Admin: 08/18/20 08:53 Dose: 50 mg Documented by: Sepsis Event Note - Focused Exam Vital Signs: Vital Signs Temp Pulse Pulse Resp BP BP Pulse Ox 08/19/20 11:00 36.7 C 84 25 H 141/77 H 98 08/19/20 08:47 92 130/94 H 08/19/20 07:19 36.6 C 92 24 H 130/94 H 94 L - Plan Plan:: I have seen and evaluated the patient and agree with the residents note unless specified in my note
--- NOTE | 2020-08-17 15:59 | US ---
Ultrasound right lower extremity arterial ultrasound: Duplex and color Doppler evaluation was obtained of the right common femoral, superficial femoral, popliteal, anterior tibial and posterior tibial arteries as well as peroneal arteries. Profunda artery was also evaluated. Findings: Diffuse atherosclerotic calcification is seen throughout the right lower extremity. Profunda artery shows a focal stenosis. No hemodynamic significant stenosis is otherwise identified within the visualized arteries. Findings raise the possibility of small vessel disease. Impression: 1. Focal stenosis within the profunda artery. 2. Diffuse atherosclerotic calcification. 3. No definite hemodynamic significant stenosis is otherwise seen within the visualized arteries. Question small vessel disease. Diagnostic code #3 This report was dictated in MDT
[2020-08-17] MEDS: Amitriptyline 25 MG Tab PO SCH (20:36)
[2020-08-18] MEDS: Acetaminophen/HYDROcodone 325-5 MG Tab PO PRN ×3 (02:10→21:52)
[2020-08-18] MEDS: cefTRIAXone 1 GM in Premix Bag 1 BAG IV SCH (02:10)
[2020-08-18] MEDS: Albuterol/Ipratropium 3.0-0.5 MG/3 ML Neb Soln NEB SCH ×5 (02:12→17:54)
[2020-08-18] MEDS: Azithromycin 500 MG in Sodium Chloride 0.9% 250 ML IV SCH (02:47)
[2020-08-18] MEDS: methylPREDNISolone Sodium Succinate 40 MG/1 ML SDV IV SCH ×2 (04:40→13:06)
[2020-08-18 06:46] LABS: BLOOD UREA NITROGEN,BUN 44 mg/dL (7.0-18.0); CARBON DIOXIDE,CO2 37.4 mmol/L (21.0-32.0); CHLORIDE,CL 98 mmol/L (98-107); GLUCOSE RANDOM 389 mg/dL (74-106); POTASSIUM,K 4.5 mmol/L (3.5-5.1); SODIUM,NA 140 mmol/L (136-148)
[2020-08-18] MEDS: Diltiazem 25 MG/5 ML SDV IVPUSH PRN (07:45)
[2020-08-18] MEDS: Ketorolac 15 MG/ML SDV IVPUSH PRN ×3 (07:48→23:56)
[2020-08-18] MEDS: Pantoprazole 40 MG Tab.CR PO SCH (08:50)
[2020-08-18] MEDS: Furosemide 40 MG Tab PO SCH (08:52)
[2020-08-18] MEDS: Citalopram 20 MG Tab PO SCH (08:52)
[2020-08-18] MEDS: Clopidogrel 75 MG Tab PO SCH (08:52)
[2020-08-18] MEDS: Aspirin 81 MG Tab.EC PO SCH (08:53)
[2020-08-18] MEDS: Metoprolol Tartrate 50 MG Tab PO SCH ×2 (08:53→21:45)
[2020-08-18] MEDS: Spironolactone 25 MG Tab PO SCH (08:56)
[2020-08-18] MEDS: Budesonide/Formoterol 160-4.5 MCG/Puff 6 GM Inhaler INH SCH ×2 (09:06→21:45)
[2020-08-18] MEDS: Polyethylene Glycol 3350 Powder 17 GM Packet PO SCH (09:06)
[2020-08-18] MEDS: Insulin Aspart 100 Units/ML 3 ML Pen SUBCUT SCH ×4 (09:25→18:21)
[2020-08-18] MEDS ORDERED: Metoprolol Succinate 50 MG Tab.ER PO ONE (10:47)
[2020-08-18] MEDS: Tiotropium Bromide [Spiriva Respimat] 2.5 MCG INH SCH (11:27)
[2020-08-18] MEDS: Enoxaparin 40 MG/0.4 ML Syringe SUBCUT SCH (12:51)
--- NOTE | 2020-08-18 16:05 | US ---
Ankle brachial index Comparison: Bilateral lower extremity ultrasound of 08/17/20. [place] of the left lower extremity is 0.55 and [place] of the right lower extremity is 0.55 Impression: 1. Low [place] values for both lower extremities. Question if these values are accurate due to calcifications that were seen on ultrasound study within the lower extremity arteries. Diagnostic code #3 This report was dictated in MDT
--- NOTE | 2020-08-18 16:40 | PCM.PN ---
<Ady Smith - Last Filed: 08/18/20 16:42> - General Info Date of Service: 08/18/20 Subjective Update: Patient appears more alert this morning. He states that he slept fine. Denies SOB, chest pain, fever or chills. He does have a decreased appetite over previous days but is still consuming water. - Review of Systems General: Denies: Fever, Chills HEENT: Denies: Headaches Pulmonary: Denies: Shortness of Breath, Pleuritic Chest Pain, Cough Cardiovascular: Reports: Dyspnea on Exertion. Denies: Chest Pain, Palpitations Gastrointestinal: Reports: Decreased Appetite. Denies: Abdominal Pain, Nausea Neurological: Denies: Headache - Patient Data Vitals - Most Recent: Last Vital Signs Temp 97.5 F 08/18/20 16:00 Pulse 87 08/18/20 16:00 Resp 22 H 08/18/20 16:00 BP 129/60 08/18/20 16:00 Pulse Ox 96 08/18/20 16:00 Weight - Most Recent: 105.143 kg I&O - Last 24 Hours: Intake & Output 08/18/20 08/18/20 08/18/20 06:59 14:59 22:59 Intake Total 1000 Output Total 550 Balance 450 Lab Results Last 24 Hours: Laboratory Results - last 24 hr 08/17/20 08/18/20 08/18/20 Range/Units 17:03 05:33 05:33 WBC 10.05 (4.0-11.0) K/uL RBC 3.65 L (4.50-5.90) M/uL Hgb 10.3 L (13.0-17.0) g/dL Hct 34.1 L (38.0-50.0) % MCV 93.4 (80.0-98.0) fL MCH 28.2 (27.0-32.0) pg MCHC 30.2 L (31.0-37.0) g/dL RDW Std Deviation 50.2 (28.0-62.0) fl RDW Coeff of Rocco 15 (11.0-15.0) % Plt Count 303 (150-400) K/uL MPV 10.00 (7.40-12.00) fL Neut % (Auto) 86.4 H (48.0-80.0) % Lymph % (Auto) 7.6 L (16.0-40.0) % Knott % (Auto) 6.0 (0.0-15.0) % Eos % (Auto) 0.0 (0.0-7.0) % Baso % (Auto) 0.0 (0.0-1.5) % Neut # (Auto) 8.7 H (1.4-5.7) K/uL Lymph # (Auto) 0.8 (0.6-2.4) K/uL Knott # (Auto) 0.6 (0.0-0.8) K/uL Eos # (Auto) 0.0 (0.0-0.7) K/uL Baso # (Auto) 0.0 (0.0-0.1) K/uL Nucleated RBC % 0.0 /100WBC Nucleated RBCs # 0 K/uL Sodium 140 (136-148) mmol/L Potassium 4.5 (3.5-5.1) mmol/L Chloride 98 (98-107) mmol/L Carbon Dioxide 37.4 H (21.0-32.0) mmol/L BUN 44 H (7.0-18.0) mg/dL Creatinine 1.1 (0.8-1.3) mg/dL Est Cr Clr Drug Dosing 59.77 mL/min Estimated GFR (MDRD) > 60.0 ml/min Glucose 389 H (74-106) mg/dL POC Glucose 375 H (60-110) mg/dL Calcium 8.6 (8.5-10.1) mg/dL 08/18/20 08/18/20 08/18/20 Range/Units 06:16 12:38 14:03 WBC (4.0-11.0) K/uL RBC (4.50-5.90) M/uL Hgb (13.0-17.0) g/dL Hct (38.0-50.0) % MCV (80.0-98.0) fL MCH (27.0-32.0) pg MCHC (31.0-37.0) g/dL RDW Std Deviation (28.0-62.0) fl RDW Coeff of Rocco (11.0-15.0) % Plt Count (150-400) K/uL MPV (7.40-12.00) fL Neut % (Auto) (48.0-80.0) % Lymph % (Auto) (16.0-40.0) % Knott % (Auto) (0.0-15.0) % Eos % (Auto) (0.0-7.0) % Baso % (Auto) (0.0-1.5) % Neut # (Auto) (1.4-5.7) K/uL Lymph # (Auto) (0.6-2.4) K/uL Knott # (Auto) (0.0-0.8) K/uL Eos # (Auto) (0.0-0.7) K/uL Baso # (Auto) (0.0-0.1) K/uL Nucleated RBC % /100WBC Nucleated RBCs # K/uL Sodium (136-148) mmol/L Potassium (3.5-5.1) mmol/L Chloride (98-107) mmol/L Carbon Dioxide (21.0-32.0) mmol/L BUN (7.0-18.0) mg/dL Creatinine (0.8-1.3) mg/dL Est Cr Clr Drug Dosing mL/min Estimated GFR (MDRD) ml/min Glucose (74-106) mg/dL POC Glucose 359 H 418 H 331 H (60-110) mg/dL Calcium (8.5-10.1) mg/dL Jason Results Last 24 Hours: Microbiology 08/17/20 13:56 Aerobic Blood Culture - Preliminary Blood - Venous - Lab Draw NO GROWTH AFTER 1 DAY Anaerobic Blood Culture - Preliminary NO GROWTH AFTER 1 DAY 08/17/20 13:50 Aerobic Blood Culture - Preliminary Blood - Venous NO GROWTH AFTER 1 DAY Anaerobic Blood Culture - Preliminary NO GROWTH AFTER 1 DAY 08/15/20 01:53 Aerobic Blood Culture - Preliminary Blood - Venous Anaerobic Blood Culture - Preliminary 08/15/20 01:59 Aerobic Blood Culture - Preliminary Blood - Venous - Lab Draw NO GROWTH AFTER 3 DAYS Anaerobic Blood Culture - Preliminary NO GROWTH AFTER 3 DAYS Med Orders - Current: Current Medications Acetaminophen (Tylenol) 650 mg PO Q4H PRN PRN Reason: Pain Last Admin: 08/16/20 23:01 Dose: 650 mg Documented by: Hydrocodone Bitart/Acetaminophen ([place] 325-5 Mg) 1 tab PO Q8H PRN PRN Reason: Pain (severe 7-10) Last Admin: 08/18/20 11:22 Dose: 1 tab Documented by: Albuterol/Ipratropium (Duoneb 3.0-0.5 Mg/3 Ml) 3 ml NEB Q4HRRT [facility] Last Admin: 08/18/20 14:26 Dose: 3 ml Documented by: Amitriptyline HCl (Elavil) 25 mg PO BEDTIME [facility] Last Admin: 08/17/20 20:36 Dose: 25 mg Documented by: Aspirin (Halfprin) 81 mg PO DAILY [facility] Last Admin: 08/18/20 08:53 Dose: 81 mg Documented by: Citalopram Hydrobromide (Celexa) 10 mg PO DAILY [facility] Last Admin: 08/18/20 08:52 Dose: 10 mg Documented by: Clopidogrel Bisulfate (Plavix) 75 mg PO DAILY [facility] Last Admin: 08/18/20 08:52 Dose: 75 mg Documented by: Diltiazem HCl (Diltiazem) 20 mg IVPUSH Q2H PRN PRN Reason: Tachycardia Last Admin: 08/18/20 07:45 Dose: 20 mg Documented by: Enoxaparin Sodium (Lovenox) 40 mg SUBCUT Q24H [facility] Last Admin: 08/18/20 12:51 Dose: 40 mg Documented by: Furosemide (Lasix) 40 mg PO DAILY [facility] Last Admin: 08/18/20 08:52 Dose: 40 mg Documented by: Ceftriaxone Sodium/Dextrose 1 (gm/ Premix) 50 mls @ 100 mls/hr IV Q24H [facility] Last Admin: 08/18/20 02:10 Dose: 100 mls/hr Documented by: Azithromycin 500 mg/ Sodium (Chloride) 250 mls @ 250 mls/hr IV Q24H [facility] Last Admin: 08/18/20 02:47 Dose: 250 mls/hr Documented by: Vancomycin HCl 1.5 gm/ Premix 300 mls @ 300 mls/hr IV Q24H [facility] Last Admin: 08/17/20 20:38 Dose: 300 mls/hr Documented by: Insulin Aspart (Novolog) 0 unit SUBCUT TIDAC [facility]; Protocol Last Admin: 08/18/20 14:04 Dose: 12 units Documented by: Ketorolac Tromethamine (Toradol) 15 mg IVPUSH Q6H PRN PRN Reason: Pain Stop: 08/20/20 19:33 Last Admin: 08/18/20 16:24 Dose: 15 mg Documented by: Methylprednisolone Sodium Succinate (Solu-Medrol) 40 mg IV Q12H [facility] Last Admin: 08/18/20 13:06 Dose: 40 mg Documented by: Metoprolol Tartrate (Lopressor) 100 mg PO BID [facility] Ondansetron HCl (Zofran) 4 mg IVPUSH Q4H PRN PRN Reason: Nausea/Vomiting Last Admin: 08/15/20 13:27 Dose: 4 mg Documented by: Pantoprazole Sodium (Protonix) 40 mg PO ACBREAKFAST [facility] Last Admin: 08/18/20 08:50 Dose: 40 mg Documented by: Budesonide/Formoterol 160-4.5 Mcg/Puff 6 Gm Inhaler 2 each INH BID [facility] Last Admin: 08/18/20 09:06 Dose: Not Given Documented by: Tiotropium [place] [ Spiriva Respimat] 2. 5 Mcg 1 each INH Q24H [facility] Last Admin: 08/18/20 11:27 Dose: Not Given Documented by: Methocarbamol 750 Mg (Tab) 1 each PO TID PRN PRN Reason: muscle spasms Polyethylene Glycol (Miralax) 17 gm PO DAILY [facility] Last Admin: 08/18/20 09:06 Dose: 17 gm Documented by: Sodium Chloride (Saline Flush) 10 ml FLUSH ASDIRECTED PRN PRN Reason: Keep Vein Open Sodium Chloride (Saline Flush) 2.5 ml FLUSH ASDIRECTED PRN PRN Reason: Keep Vein Open Spironolactone (Aldactone) 50 mg PO DAILY [facility] Last Admin: 08/18/20 08:56 Dose: 50 mg Documented by: Vancomycin HCl (Pharmacy To Dose - Vancomycin) 1 dose .XX ASDIRECTED [facility] Discontinued Medications Diltiazem HCl (Diltiazem) 20 mg IVPUSH ONETIME ONE Stop: 08/17/20 03:23 Last Admin: 08/17/20 03:33 Dose: 20 mg Documented by: Furosemide (Lasix) 40 mg PO DAILY [facility] Azithromycin 500 mg/ Sodium (Chloride) 250 mls @ 250 mls/hr IV ONETIME ONE Stop: 08/15/20 02:45 Last Admin: 08/15/20 02:15 Dose: 250 mls/hr Documented by: Ceftriaxone Sodium/Dextrose 2 (gm/ Premix) 50 mls @ 100 mls/hr IV ONETIME ONE Stop: 08/15/20 02:15 Last Admin: 08/15/20 01:57 Dose: 100 mls/hr Documented by: Vancomycin HCl 1.5 gm/ Premix 300 mls @ 300 mls/hr IV ONETIME ONE Stop: 08/16/20 03:29 Last Admin: 08/16/20 03:38 Dose: 300 mls/hr Documented by: Insulin Aspart (Novolog) 0 unit SUBCUT TIDAC [facility]; Protocol Last Admin: 08/16/20 12:20 Dose: 4 unit Documented by: Insulin Aspart (Novolog) 12 unit SUBCUT NOW STA Stop: 08/16/20 16:37 Last Admin: 08/16/20 17:37 Dose: 12 units Documented by: Insulin Aspart (Novolog) 7 unit SUBCUT NOW STA Stop: 08/17/20 08:03 Last Admin: 08/17/20 08:23 Dose: 7 units Documented by: Methocarbamol (Methocarbamol) 750 mg PO TID PRN PRN Reason: muscle spasms Methylprednisolone Sodium Succinate (Solu-Medrol) 125 mg IV Q12H [facility] Last Admin: 08/17/20 10:20 Dose: 125 mg Documented by: Methylprednisolone Sodium Succinate (Solu-Medrol) 40 mg IV Q8H [facility] Last Admin: 08/18/20 04:40 Dose: 40 mg Documented by: Metoprolol Succinate (Toprol Xl) 50 mg PO ONETIME ONE Stop: 08/18/20 10:48 Last Admin: 08/18/20 11:24 Dose: 50 mg Documented by: Metoprolol Tartrate (Lopressor) 50 mg PO BID [facility] Last Admin: 08/18/20 08:53 Dose: 50 mg Documented by: - Exam General: Alert, Oriented Lungs: Clear to Auscultation, Wheezing Cardiovascular: Regular Rate, Regular Rhythm GI/Abdominal Exam: Soft, Non-Tender, No Distention Extremities: Pedal Edema, Leg Pain ( Leg Pain (both feet), Other (right foot is cool to touch and apppears cynaotic. Patient staes this is normal)) Psy/Mental Status: Alert Sepsis Event Note - Evaluation Sepsis Screening Result: Sepsis Risk - Focused Exam Vital Signs: Vital Signs Temp Pulse Pulse Resp BP BP Pulse Ox 08/18/20 16:00 97.5 F 87 22 H 129/60 96 08/18/20 14:26 72 08/18/20 11:24 90 132/65 08/18/20 11:00 97 F 91 24 H 132/65 95 08/18/20 08:53 75 146/66 H 08/18/20 07:46 190/81 H - Problem List Review Problem List Initiated/Reviewed/Updated: Yes - My Orders Last 24 Hours: My Active Orders 08/17/20 Dinner Fluid Restriction [DIET] - Plan Plan:: COPD Exacerbation- Resume Azithromycin 500mg Q24, Ceftriaxone 1g Q24, Solumedrol 40mg q12hrs, DuoNebs, 02 support to maintain oxygen above 90%. Patient has been using BiPap throughout the day as he does not tolerate it at night while sleep ing. Patient has been encouraged to sit up and use Incentive spirometer A-Fib- Patient has had two nights with paroxysmal A-Fib RVR events. Metoprolol increased to 100mg BID for better rhythm control. Patent is currently on Plavix and is a bleeding risk due to mechanical fall history. Will speak to POA before stating Eliquis. Bacteremia- Patient started on Vancomycin due to Gram + cocci on preliminary blood culture. Blood cultures X 2 REPEATED CHF- Lasix, Metoprolol. HTN-Metoprolol Diabetes- Insulin sliding scale, Diabetic Diet <Carmen Tineo - Last Filed: 08/19/20 13:43> - Patient Data Vitals - Most Recent: Last Vital Signs Temp 36.7 C 08/19/20 11:00 Pulse 84 08/19/20 11:00 Resp 25 H 08/19/20 11:00 BP 141/77 H 08/19/20 11:00 Pulse Ox 98 08/19/20 11:00 I&O - Last 24 Hours: Intake & Output 08/18/20 08/19/20 08/19/20 22:59 06:59 14:59 Intake Total 250 300 Output Total 430 450 Balance -180 -150 Lab Results Last 24 Hours: Laboratory Results - last 24 hr 08/18/20 08/18/20 08/18/20 Range/Units 12:38 14:03 17:14 WBC (4.0-11.0) K/uL RBC (4.50-5.90) M/uL Hgb (13.0-17.0) g/dL Hct (38.0-50.0) % MCV (80.0-98.0) fL MCH (27.0-32.0) pg MCHC (31.0-37.0) g/dL RDW Std Deviation (28.0-62.0) fl RDW Coeff of Rocco (11.0-15.0) % Plt Count (150-400) K/uL MPV (7.40-12.00) fL Neut % (Auto) (48.0-80.0) % Lymph % (Auto) (16.0-40.0) % Knott % (Auto) (0.0-15.0) % Eos % (Auto) (0.0-7.0) % Baso % (Auto) (0.0-1.5) % Neut # (Auto) (1.4-5.7) K/uL Lymph # (Auto) (0.6-2.4) K/uL Knott # (Auto) (0.0-0.8) K/uL Eos # (Auto) (0.0-0.7) K/uL Baso # (Auto) (0.0-0.1) K/uL Nucleated RBC % /100WBC Nucleated RBCs # K/uL Sodium (136-148) mmol/L Potassium (3.5-5.1) mmol/L Chloride (98-107) mmol/L Carbon Dioxide (21.0-32.0) mmol/L BUN (7.0-18.0) mg/dL Creatinine (0.8-1.3) mg/dL Est Cr Clr Drug Dosing mL/min Estimated GFR (MDRD) ml/min Glucose (74-106) mg/dL POC Glucose 418 H 331 H 279 H (60-110) mg/dL Calcium (8.5-10.1) mg/dL Phosphorus (2.6-4.7) mg/dL Magnesium (1.8-2.4) mg/dL Troponin I (0.000-0.056) ng/mL 08/19/20 08/19/20 08/19/20 Range/Units 04:00 04:00 04:00 WBC 13.04 H (4.0-11.0) K/uL RBC 4.23 L (4.50-5.90) M/uL Hgb 12.1 L (13.0-17.0) g/dL Hct 39.5 (38.0-50.0) % MCV 93.4 (80.0-98.0) fL MCH 28.6 (27.0-32.0) pg MCHC 30.6 L (31.0-37.0) g/dL RDW Std Deviation 50.9 (28.0-62.0) fl RDW Coeff of Rocco 15 (11.0-15.0) % Plt Count 338 (150-400) K/uL MPV 9.90 (7.40-12.00) fL Neut % (Auto) 81.2 H (48.0-80.0) % Lymph % (Auto) 10.7 L (16.0-40.0) % Knott % (Auto) 8.1 (0.0-15.0) % Eos % (Auto) 0.0 (0.0-7.0) % Baso % (Auto) 0.0 (0.0-1.5) % Neut # (Auto) 10.6 H (1.4-5.7) K/uL Lymph # (Auto) 1.4 (0.6-2.4) K/uL Knott # (Auto) 1.1 H (0.0-0.8) K/uL Eos # (Auto) 0.0 (0.0-0.7) K/uL Baso # (Auto) 0.0 (0.0-0.1) K/uL Nucleated RBC % 0.0 /100WBC Nucleated RBCs # 0 K/uL Sodium 140 (136-148) mmol/L Potassium 4.7 (3.5-5.1) mmol/L Chloride 99 (98-107) mmol/L Carbon Dioxide 38.9 H (21.0-32.0) mmol/L BUN 45 H (7.0-18.0) mg/dL Creatinine 1.2 (0.8-1.3) mg/dL Est Cr Clr Drug Dosing 54.79 mL/min Estimated GFR (MDRD) 58.4 ml/min Glucose 366 H (74-106) mg/dL POC Glucose (60-110) mg/dL Calcium 8.8 (8.5-10.1) mg/dL Phosphorus 4.8 H (2.6-4.7) mg/dL Magnesium 2.0 (1.8-2.4) mg/dL Troponin I (0.000-0.056) ng/mL 08/19/20 08/19/20 08/19/20 Range/Units 07:21 11:18 11:31 WBC (4.0-11.0) K/uL RBC (4.50-5.90) M/uL Hgb (13.0-17.0) g/dL Hct (38.0-50.0) % MCV (80.0-98.0) fL MCH (27.0-32.0) pg MCHC (31.0-37.0) g/dL RDW Std Deviation (28.0-62.0) fl RDW Coeff of Rocco (11.0-15.0) % Plt Count (150-400) K/uL MPV (7.40-12.00) fL Neut % (Auto) (48.0-80.0) % Lymph % (Auto) (16.0-40.0) % Knott % (Auto) (0.0-15.0) % Eos % (Auto) (0.0-7.0) % Baso % (Auto) (0.0-1.5) % Neut # (Auto) (1.4-5.7) K/uL Lymph # (Auto) (0.6-2.4) K/uL [place]t # (Auto) (0.0-0.8) K/uL Eos # (Auto) (0.0-0.7) K/uL Baso # (Auto) (0.0-0.1) K/uL Nucleated RBC % /100WBC Nucleated RBCs # K/uL Sodium (136-148) mmol/L Potassium (3.5-5.1) mmol/L Chloride (98-107) mmol/L Carbon Dioxide (21.0-32.0) mmol/L BUN (7.0-18.0) mg/dL Creatinine (0.8-1.3) mg/dL Est Cr Clr Drug Dosing mL/min Estimated GFR (MDRD) ml/min Glucose (74-106) mg/dL POC Glucose 336 H 321 H (60-110) mg/dL Calcium (8.5-10.1) mg/dL Phosphorus (2.6-4.7) mg/dL Magnesium (1.8-2.4) mg/dL Troponin I < 0.050 (0.000-0.056) ng/mL Jason Results Last 24 Hours: Microbiology 08/15/20 01:59 Aerobic Blood Culture - Preliminary Blood - Venous - Lab Draw NO GROWTH AFTER 4 DAYS Anaerobic Blood Culture - Preliminary NO GROWTH AFTER 4 DAYS 08/17/20 13:56 Aerobic Blood Culture - Preliminary Blood - Venous - Lab Draw NO GROWTH AFTER 1 DAY Anaerobic Blood Culture - Preliminary NO GROWTH AFTER 1 DAY 08/17/20 13:50 Aerobic Blood Culture - Preliminary Blood - Venous NO GROWTH AFTER 1 DAY Anaerobic Blood Culture - Preliminary NO GROWTH AFTER 1 DAY 08/15/20 01:53 Aerobic Blood Culture - Preliminary Blood - Venous Anaerobic Blood Culture - Preliminary Med Orders - Current: Current Medications Acetaminophen (Tylenol) 650 mg PO Q4H PRN PRN Reason: Pain Last Admin: 08/16/20 23:01 Dose: 650 mg Documented by: Hydrocodone Bitart/Acetaminophen ([place] 325-5 Mg) 1 tab PO Q8H PRN PRN Reason: Pain (severe 7-10) Last Admin: 08/19/20 07:23 Dose: 1 tab Documented by: Amiodarone HCl (Cordarone) 100 mg PO DAILY [facility] Last Admin: 08/19/20 11:51 Dose: 100 mg Documented by: Amitriptyline HCl (Elavil) 25 mg PO BEDTIME [facility] Last Admin: 08/18/20 21:44 Dose: 25 mg Documented by: Aspirin (Halfprin) 81 mg PO DAILY [facility] Last Admin: 08/19/20 08:47 Dose: 81 mg Documented by: Budesonide/Formoterol Fumarate (Symbicort 160-4.5 Mcg) 0 gm INH BID [facility] Last Admin: 08/19/20 10:21 Dose: Not Given Documented by: Citalopram Hydrobromide (Celexa) 10 mg PO DAILY [facility] Last Admin: 08/19/20 08:47 Dose: 10 mg Documented by: Clopidogrel Bisulfate (Plavix) 75 mg PO DAILY [facility] Last Admin: 08/19/20 08:52 Dose: 75 mg Documented by: Diltiazem HCl (Diltiazem) 20 mg IVPUSH Q2H PRN PRN Reason: Tachycardia Last Admin: 08/19/20 03:39 Dose: 20 mg Documented by: Enoxaparin Sodium (Lovenox) 40 mg SUBCUT Q24H [facility] Last Admin: 08/19/20 12:31 Dose: 40 mg Documented by: Enoxaparin Sodium (Lovenox) 100 mg SUBCUT BID [facility] Furosemide (Lasix) 40 mg PO DAILY [facility] Last Admin: 08/19/20 08:47 Dose: 40 mg Documented by: Ceftriaxone Sodium/Dextrose 1 (gm/ Premix) 50 mls @ 100 mls/hr IV Q24H [facility] Last Admin: 08/19/20 02:27 Dose: 100 mls/hr Documented by: Azithromycin 500 mg/ Sodium (Chloride) 250 mls @ 250 mls/hr IV Q24H [facility] Last Admin: 08/19/20 04:10 Dose: 250 mls/hr Documented by: Insulin Aspart (Novolog) 0 unit SUBCUT TIDAC [facility]; Protocol Last Admin: 08/19/20 12:31 Dose: 12 units Documented by: Ipratropium [place] (Atrovent) 0.5 mg NEB Q6HRRT [facility] Ketorolac Tromethamine (Toradol) 15 mg IVPUSH Q6H PRN PRN Reason: Pain Stop: 08/20/20 19:33 Last Admin: 08/18/20 23:56 Dose: 15 mg Documented by: Methylprednisolone Sodium Succinate (Solu-Medrol) 40 mg IV Q12H [facility] Last Admin: 08/19/20 02:22 Dose: 40 mg Documented by: Metoprolol Tartrate (Lopressor) 100 mg PO BID [facility] Last Admin: 08/19/20 08:47 Dose: 100 mg Documented by: Ondansetron HCl (Zofran) 4 mg IVPUSH Q4H PRN PRN Reason: Nausea/Vomiting Last Admin: 08/15/20 13:27 Dose: 4 mg Documented by: Pantoprazole Sodium (Protonix) 40 mg PO ACBREAKFAST [facility] Last Admin: 08/19/20 07:23 Dose: 40 mg Documented by: Budesonide/Formoterol 160-4.5 Mcg/Puff 6 Gm Inhaler 2 each INH BID [facility] Last Admin: 08/19/20 10:20 Dose: Not Given Documented by: Tiotropium [place] [ Spiriva Respimat] 2. 5 Mcg 1 each INH Q24H [facility] Last Admin: 08/19/20 12:30 Dose: Not Given Documented by: Methocarbamol 750 Mg (Tab) 1 each PO TID PRN PRN Reason: muscle spasms Polyethylene Glycol (Miralax) 17 gm PO DAILY [facility] Last Admin: 08/19/20 08:47 Dose: 17 gm Documented by: Sodium Chloride (Saline Flush) 10 ml FLUSH ASDIRECTED PRN PRN Reason: Keep Vein Open Sodium Chloride (Saline Flush) 2.5 ml FLUSH ASDIRECTED PRN PRN Reason: Keep Vein Open Spironolactone (Aldactone) 50 mg PO DAILY [facility] Last Admin: 08/19/20 08:47 Dose: 50 mg Documented by: Vancomycin HCl (Pharmacy To Dose - Vancomycin) 1 dose .XX ASDIRECTED [facility] Discontinued Medications Albuterol/Ipratropium (Duoneb 3.0-0.5 Mg/3 Ml) 3 ml NEB Q4HRRT [facility] Last Admin: 08/18/20 17:54 Dose: 3 ml Documented by: Diltiazem HCl (Diltiazem) 20 mg IVPUSH ONETIME ONE Stop: 08/17/20 03:23 Last Admin: 08/17/20 03:33 Dose: 20 mg Documented by: Furosemide (Lasix) 40 mg PO DAILY [facility] Furosemide (Lasix) 20 mg IVPUSH NOW ONE Stop: 08/19/20 13:05 Azithromycin 500 mg/ Sodium (Chloride) 250 mls @ 250 mls/hr IV ONETIME ONE Stop: 08/15/20 02:45 Last Admin: 08/15/20 02:15 Dose: 250 mls/hr Documented by: Ceftriaxone Sodium/Dextrose 2 (gm/ Premix) 50 mls @ 100 mls/hr IV ONETIME ONE Stop: 08/15/20 02:15 Last Admin: 08/15/20 01:57 Dose: 100 mls/hr Documented by: Vancomycin HCl 1.5 gm/ Premix 300 mls @ 300 mls/hr IV ONETIME ONE Stop: 08/16/20 03:29 Last Admin: 08/16/20 03:38 Dose: 300 mls/hr Documented by: Vancomycin HCl 1.5 gm/ Premix 300 mls @ 300 mls/hr IV Q24H [facility] Last Admin: 08/18/20 20:40 Dose: 300 mls/hr Documented by: Amiodarone HCl 300 mg/ (Dextrose/Water) 106 mls @ 300 mls/hr IV .BOLUS ONE Stop: 08/19/20 04:08 Insulin Aspart (Novolog) 0 unit SUBCUT TIDAC [facility]; Protocol Last Admin: 08/16/20 12:20 Dose: 4 unit Documented by: Insulin Aspart (Novolog) 12 unit SUBCUT NOW STA Stop: 08/16/20 16:37 Last Admin: 08/16/20 17:37 Dose: 12 units Documented by: Insulin Aspart (Novolog) 7 unit SUBCUT NOW STA Stop: 08/17/20 08:03 Last Admin: 08/17/20 08:23 Dose: 7 units Documented by: Lorazepam (Ativan) 0.5 mg IVPUSH ONETIME ONE Stop: 08/19/20 11:58 Last Admin: 08/19/20 12:31 Dose: 0.5 mg Documented by: Methocarbamol (Methocarbamol) 750 mg PO TID PRN PRN Reason: muscle spasms Methylprednisolone Sodium Succinate (Solu-Medrol) 125 mg IV Q12H [facility] Last Admin: 08/17/20 10:20 Dose: 125 mg Documented by: Methylprednisolone Sodium Succinate (Solu-Medrol) 40 mg IV Q8H [facility] Last Admin: 08/18/20 04:40 Dose: 40 mg Documented by: Metoprolol Succinate (Toprol Xl) 50 mg PO ONETIME ONE Stop: 08/18/20 10:48 Last Admin: 08/18/20 11:24 Dose: 50 mg Documented by: Metoprolol Tartrate (Lopressor) 50 mg PO BID [facility] Last Admin: 08/18/20 08:53 Dose: 50 mg Documented by: Sepsis Event Note - Focused Exam Vital Signs: Vital Signs Temp Pulse Pulse Resp BP BP Pulse Ox 08/19/20 11:00 36.7 C 84 25 H 141/77 H 98 08/19/20 08:47 92 130/94 H 08/19/20 07:19 36.6 C 92 24 H 130/94 H 94 L - Plan Plan:: I have seen and evaluated the patient and agree with the residents note unless specified in my note
[2020-08-18] MEDS: Amitriptyline 25 MG Tab PO SCH (21:44)
[2020-08-19] MEDS: methylPREDNISolone Sodium Succinate 40 MG/1 ML SDV IV SCH ×2 (02:22→13:57)
[2020-08-19] MEDS: cefTRIAXone 1 GM in Premix Bag 1 BAG IV SCH (02:27)
[2020-08-19] MEDS: Diltiazem 25 MG/5 ML SDV IVPUSH PRN ×2 (03:39→20:45)
[2020-08-19] MEDS ORDERED: Amiodarone 300 MG in Dextrose 5% in Water 100 ML IV ONE ×2 (03:47)
[2020-08-19] MEDS: Azithromycin 500 MG in Sodium Chloride 0.9% 250 ML IV SCH (04:10)
[2020-08-19 04:28] LABS: CARBON DIOXIDE,CO2 38.9 mmol/L (21.0-32.0); POTASSIUM,K 4.7 mmol/L (3.5-5.1)
[2020-08-19] MEDS: Insulin Aspart 100 Units/ML 3 ML Pen SUBCUT SCH ×3 (07:22→17:20)
[2020-08-19] MEDS: Acetaminophen/HYDROcodone 325-5 MG Tab PO PRN ×2 (07:23→21:02)
[2020-08-19] MEDS: Pantoprazole 40 MG Tab.CR PO SCH (07:23)
[2020-08-19] MEDS: Furosemide 40 MG Tab PO SCH (08:47)
[2020-08-19] MEDS: Metoprolol Tartrate 50 MG Tab PO SCH ×2 (08:47→20:56)
[2020-08-19] MEDS: Spironolactone 25 MG Tab PO SCH (08:47)
[2020-08-19] MEDS: Aspirin 81 MG Tab.EC PO SCH (08:47)
[2020-08-19] MEDS: Polyethylene Glycol 3350 Powder 17 GM Packet PO SCH (08:47)
[2020-08-19] MEDS: Citalopram 20 MG Tab PO SCH (08:47)
[2020-08-19] MEDS: Clopidogrel 75 MG Tab PO SCH (08:52)
[2020-08-19] MEDS: Budesonide/Formoterol 160-4.5 MCG/Puff 6 GM Inhaler INH SCH ×4 (10:20→22:05)
--- NOTE | 2020-08-19 11:39 | PCM.PN ---
<Michelle Mejia - Last Filed: 08/19/20 12:27> - General Info Date of Service: 08/19/20 Subjective Update: Bedside: appears alert but continues to doze off during examination otherwise pleasant and mentions breathing improves but only for a short while Functional Status: Reports: Pain Controlled - Review of Systems General: Reports: No Symptoms HEENT: Reports: No Symptoms Pulmonary: Reports: Shortness of Breath. Denies: Cough Cardiovascular: Reports: No Symptoms, Dyspnea on Exertion Gastrointestinal: Reports: No Symptoms Genitourinary: Reports: No Symptoms Musculoskeletal: Reports: No Symptoms Skin: Reports: No Symptoms Neurological: Reports: No Symptoms Psychiatric: Reports: No Symptoms - Patient Data Vitals - Most Recent: Last Vital Signs Temp 97.8 F 08/19/20 07:19 Pulse 92 08/19/20 08:47 Resp 24 H 08/19/20 07:19 BP 130/94 H 08/19/20 08:47 Pulse Ox 94 L 08/19/20 07:19 Weight - Most Recent: 105.233 kg I&O - Last 24 Hours: Intake & Output 08/18/20 08/19/20 08/19/20 22:59 06:59 14:59 Intake Total 250 300 Output Total 430 450 Balance -180 -150 Lab Results Last 24 Hours: Laboratory Results - last 24 hr 08/18/20 08/18/20 08/18/20 Range/Units 12:38 14:03 17:14 WBC (4.0-11.0) K/uL RBC (4.50-5.90) M/uL Hgb (13.0-17.0) g/dL Hct (38.0-50.0) % MCV (80.0-98.0) fL MCH (27.0-32.0) pg MCHC (31.0-37.0) g/dL RDW Std Deviation (28.0-62.0) fl RDW Coeff of Rocco (11.0-15.0) % Plt Count (150-400) K/uL MPV (7.40-12.00) fL Neut % (Auto) (48.0-80.0) % Lymph % (Auto) (16.0-40.0) % Frontier % (Auto) (0.0-15.0) % Eos % (Auto) (0.0-7.0) % Baso % (Auto) (0.0-1.5) % Neut # (Auto) (1.4-5.7) K/uL Lymph # (Auto) (0.6-2.4) K/uL [place] # (Auto) (0.0-0.8) K/uL Eos # (Auto) (0.0-0.7) K/uL Baso # (Auto) (0.0-0.1) K/uL Nucleated RBC % /100WBC Nucleated RBCs # K/uL Sodium (136-148) mmol/L Potassium (3.5-5.1) mmol/L Chloride (98-107) mmol/L Carbon Dioxide (21.0-32.0) mmol/L BUN (7.0-18.0) mg/dL Creatinine (0.8-1.3) mg/dL Est Cr Clr Drug Dosing mL/min Estimated GFR (MDRD) ml/min Glucose (74-106) mg/dL POC Glucose 418 H 331 H 279 H (60-110) mg/dL Calcium (8.5-10.1) mg/dL Phosphorus (2.6-4.7) mg/dL Magnesium (1.8-2.4) mg/dL 08/19/20 08/19/20 08/19/20 Range/Units 04:00 04:00 04:00 WBC 13.04 H (4.0-11.0) K/uL RBC 4.23 L (4.50-5.90) M/uL Hgb 12.1 L (13.0-17.0) g/dL Hct 39.5 (38.0-50.0) % MCV 93.4 (80.0-98.0) fL MCH 28.6 (27.0-32.0) pg MCHC 30.6 L (31.0-37.0) g/dL RDW Std Deviation 50.9 (28.0-62.0) fl RDW Coeff of Rocco 15 (11.0-15.0) % Plt Count 338 (150-400) K/uL MPV 9.90 (7.40-12.00) fL Neut % (Auto) 81.2 H (48.0-80.0) % Lymph % (Auto) 10.7 L (16.0-40.0) % Frontier % (Auto) 8.1 (0.0-15.0) % Eos % (Auto) 0.0 (0.0-7.0) % Baso % (Auto) 0.0 (0.0-1.5) % Neut # (Auto) 10.6 H (1.4-5.7) K/uL Lymph # (Auto) 1.4 (0.6-2.4) K/uL Frontier # (Auto) 1.1 H (0.0-0.8) K/uL Eos # (Auto) 0.0 (0.0-0.7) K/uL Baso # (Auto) 0.0 (0.0-0.1) K/uL Nucleated RBC % 0.0 /100WBC Nucleated RBCs # 0 K/uL Sodium 140 (136-148) mmol/L Potassium 4.7 (3.5-5.1) mmol/L Chloride 99 (98-107) mmol/L Carbon Dioxide 38.9 H (21.0-32.0) mmol/L BUN 45 H (7.0-18.0) mg/dL Creatinine 1.2 (0.8-1.3) mg/dL Est Cr Clr Drug Dosing 54.79 mL/min Estimated GFR (MDRD) 58.4 ml/min Glucose 366 H (74-106) mg/dL POC Glucose (60-110) mg/dL Calcium 8.8 (8.5-10.1) mg/dL Phosphorus 4.8 H (2.6-4.7) mg/dL Magnesium 2.0 (1.8-2.4) mg/dL 08/19/20 Range/Units 07:21 WBC (4.0-11.0) K/uL RBC (4.50-5.90) M/uL Hgb (13.0-17.0) g/dL Hct (38.0-50.0) % MCV (80.0-98.0) fL MCH (27.0-32.0) pg MCHC (31.0-37.0) g/dL RDW Std Deviation (28.0-62.0) fl RDW Coeff of Rocco (11.0-15.0) % Plt Count (150-400) K/uL MPV (7.40-12.00) fL Neut % (Auto) (48.0-80.0) % Lymph % (Auto) (16.0-40.0) % Frontier % (Auto) (0.0-15.0) % Eos % (Auto) (0.0-7.0) % Baso % (Auto) (0.0-1.5) % Neut # (Auto) (1.4-5.7) K/uL Lymph # (Auto) (0.6-2.4) K/uL [place] # (Auto) (0.0-0.8) K/uL Eos # (Auto) (0.0-0.7) K/uL Baso # (Auto) (0.0-0.1) K/uL Nucleated RBC % /100WBC Nucleated RBCs # K/uL Sodium (136-148) mmol/L Potassium (3.5-5.1) mmol/L Chloride (98-107) mmol/L Carbon Dioxide (21.0-32.0) mmol/L BUN (7.0-18.0) mg/dL Creatinine (0.8-1.3) mg/dL Est Cr Clr Drug Dosing mL/min Estimated GFR (MDRD) ml/min Glucose (74-106) mg/dL POC Glucose 336 H (60-110) mg/dL Calcium (8.5-10.1) mg/dL Phosphorus (2.6-4.7) mg/dL Magnesium (1.8-2.4) mg/dL Jason Results Last 24 Hours: Microbiology 08/15/20 01:59 Aerobic Blood Culture - Preliminary Blood - Venous - Lab Draw NO GROWTH AFTER 4 DAYS Anaerobic Blood Culture - Preliminary NO GROWTH AFTER 4 DAYS 08/17/20 13:56 Aerobic Blood Culture - Preliminary Blood - Venous - Lab Draw NO GROWTH AFTER 1 DAY Anaerobic Blood Culture - Preliminary NO GROWTH AFTER 1 DAY 08/17/20 13:50 Aerobic Blood Culture - Preliminary Blood - Venous NO GROWTH AFTER 1 DAY Anaerobic Blood Culture - Preliminary NO GROWTH AFTER 1 DAY 08/15/20 01:53 Aerobic Blood Culture - Preliminary Blood - Venous Anaerobic Blood Culture - Preliminary Med Orders - Current: Current Medications Acetaminophen (Tylenol) 650 mg PO Q4H PRN PRN Reason: Pain Last Admin: 08/16/20 23:01 Dose: 650 mg Documented by: Hydrocodone Bitart/Acetaminophen ([place] 325-5 Mg) 1 tab PO Q8H PRN PRN Reason: Pain (severe 7-10) Last Admin: 08/19/20 07:23 Dose: 1 tab Documented by: Amiodarone HCl (Cordarone) 100 mg PO DAILY [facility] Amitriptyline HCl (Elavil) 25 mg PO BEDTIME [facility] Last Admin: 08/18/20 21:44 Dose: 25 mg Documented by: Aspirin (Halfprin) 81 mg PO DAILY [facility] Last Admin: 08/19/20 08:47 Dose: 81 mg Documented by: Budesonide/Formoterol Fumarate (Symbicort 160-4.5 Mcg) 0 gm INH BID [facility] Last Admin: 08/19/20 10:21 Dose: Not Given Documented by: Citalopram Hydrobromide (Celexa) 10 mg PO DAILY [facility] Last Admin: 08/19/20 08:47 Dose: 10 mg Documented by: Clopidogrel Bisulfate (Plavix) 75 mg PO DAILY [facility] Last Admin: 08/19/20 08:52 Dose: 75 mg Documented by: Diltiazem HCl (Diltiazem) 20 mg IVPUSH Q2H PRN PRN Reason: Tachycardia Last Admin: 08/19/20 03:39 Dose: 20 mg Documented by: Enoxaparin Sodium (Lovenox) 40 mg SUBCUT Q24H [facility] Last Admin: 08/18/20 12:51 Dose: 40 mg Documented by: Enoxaparin Sodium (Lovenox) 100 mg SUBCUT BID [facility] Furosemide (Lasix) 40 mg PO DAILY [facility] Last Admin: 08/19/20 08:47 Dose: 40 mg Documented by: Ceftriaxone Sodium/Dextrose 1 (gm/ Premix) 50 mls @ 100 mls/hr IV Q24H [facility] Last Admin: 08/19/20 02:27 Dose: 100 mls/hr Documented by: Azithromycin 500 mg/ Sodium (Chloride) 250 mls @ 250 mls/hr IV Q24H [facility] Last Admin: 08/19/20 04:10 Dose: 250 mls/hr Documented by: Insulin Aspart (Novolog) 0 unit SUBCUT TIDAC [facility]; Protocol Last Admin: 08/19/20 07:22 Dose: 12 units Documented by: Ipratropium [place] (Atrovent) 0.5 mg NEB Q6HRRT [facility] Ketorolac Tromethamine (Toradol) 15 mg IVPUSH Q6H PRN PRN Reason: Pain Stop: 08/20/20 19:33 Last Admin: 08/18/20 23:56 Dose: 15 mg Documented by: Methylprednisolone Sodium Succinate (Solu-Medrol) 40 mg IV Q12H [facility] Last Admin: 08/19/20 02:22 Dose: 40 mg Documented by: Metoprolol Tartrate (Lopressor) 100 mg PO BID [facility] Last Admin: 08/19/20 08:47 Dose: 100 mg Documented by: Ondansetron HCl (Zofran) 4 mg IVPUSH Q4H PRN PRN Reason: Nausea/Vomiting Last Admin: 08/15/20 13:27 Dose: 4 mg Documented by: Pantoprazole Sodium (Protonix) 40 mg PO ACBREAKFAST [facility] Last Admin: 08/19/20 07:23 Dose: 40 mg Documented by: Budesonide/Formoterol 160-4.5 Mcg/Puff 6 Gm Inhaler 2 each INH BID [facility] Last Admin: 08/19/20 10:20 Dose: Not Given Documented by: Tiotropium [place] [ Spiriva Respimat] 2. 5 Mcg 1 each INH Q24H [facility] Last Admin: 08/18/20 11:27 Dose: Not Given Documented by: Methocarbamol 750 Mg (Tab) 1 each PO TID PRN PRN Reason: muscle spasms Polyethylene Glycol (Miralax) 17 gm PO DAILY [facility] Last Admin: 08/19/20 08:47 Dose: 17 gm Documented by: Sodium Chloride (Saline Flush) 10 ml FLUSH ASDIRECTED PRN PRN Reason: Keep Vein Open Sodium Chloride (Saline Flush) 2.5 ml FLUSH ASDIRECTED PRN PRN Reason: Keep Vein Open Spironolactone (Aldactone) 50 mg PO DAILY [facility] Last Admin: 08/19/20 08:47 Dose: 50 mg Documented by: Vancomycin HCl (Pharmacy To Dose - Vancomycin) 1 dose .XX ASDIRECTED [facility] Discontinued Medications Albuterol/Ipratropium (Duoneb 3.0-0.5 Mg/3 Ml) 3 ml NEB Q4HRRT [facility] Last Admin: 08/18/20 17:54 Dose: 3 ml Documented by: Diltiazem HCl (Diltiazem) 20 mg IVPUSH ONETIME ONE Stop: 08/17/20 03:23 Last Admin: 08/17/20 03:33 Dose: 20 mg Documented by: Furosemide (Lasix) 40 mg PO DAILY [facility] Azithromycin 500 mg/ Sodium (Chloride) 250 mls @ 250 mls/hr IV ONETIME ONE Stop: 08/15/20 02:45 Last Admin: 08/15/20 02:15 Dose: 250 mls/hr Documented by: Ceftriaxone Sodium/Dextrose 2 (gm/ Premix) 50 mls @ 100 mls/hr IV ONETIME ONE Stop: 08/15/20 02:15 Last Admin: 08/15/20 01:57 Dose: 100 mls/hr Documented by: Vancomycin HCl 1.5 gm/ Premix 300 mls @ 300 mls/hr IV ONETIME ONE Stop: 08/16/20 03:29 Last Admin: 08/16/20 03:38 Dose: 300 mls/hr Documented by: Vancomycin HCl 1.5 gm/ Premix 300 mls @ 300 mls/hr IV Q24H [facility] Last Admin: 08/18/20 20:40 Dose: 300 mls/hr Documented by: Amiodarone HCl 300 mg/ (Dextrose/Water) 106 mls @ 300 mls/hr IV .BOLUS ONE Stop: 08/19/20 04:08 Insulin Aspart (Novolog) 0 unit SUBCUT TIDAC [facility]; Protocol Last Admin: 08/16/20 12:20 Dose: 4 unit Documented by: Insulin Aspart (Novolog) 12 unit SUBCUT NOW STA Stop: 08/16/20 16:37 Last Admin: 08/16/20 17:37 Dose: 12 units Documented by: Insulin Aspart (Novolog) 7 unit SUBCUT NOW STA Stop: 08/17/20 08:03 Last Admin: 08/17/20 08:23 Dose: 7 units Documented by: Methocarbamol (Methocarbamol) 750 mg PO TID PRN PRN Reason: muscle spasms Methylprednisolone Sodium Succinate (Solu-Medrol) 125 mg IV Q12H [facility] Last Admin: 08/17/20 10:20 Dose: 125 mg Documented by: Methylprednisolone Sodium Succinate (Solu-Medrol) 40 mg IV Q8H [facility] Last Admin: 08/18/20 04:40 Dose: 40 mg Documented by: Metoprolol Succinate (Toprol Xl) 50 mg PO ONETIME ONE Stop: 08/18/20 10:48 Last Admin: 08/18/20 11:24 Dose: 50 mg Documented by: Metoprolol Tartrate (Lopressor) 50 mg PO BID [facility] Last Admin: 08/18/20 08:53 Dose: 50 mg Documented by: - Exam Quality Assessment: Supplemental Oxygen General: Alert, Oriented, Cooperative, No Acute Distress HEENT: EOMI Neck: Supple Lungs: Decreased Breath Sounds. No: Rales, Rhonchi Cardiovascular: Irregular Rhythm, Tachycardia GI/Abdominal Exam: Soft, Non-Tender Back Exam: Normal Inspection Extremities: Pedal Edema Neurological: No New Focal Deficit Psy/Mental Status: Alert, Normal Affect, Normal Mood Sepsis Event Note - Evaluation Sepsis Screening Result: No Definite Risk - Focused Exam Vital Signs: Vital Signs Temp Pulse Pulse Resp BP BP Pulse Ox 08/19/20 08:47 92 130/94 H 08/19/20 07:19 97.8 F 92 24 H 130/94 H 94 L 08/18/20 23:39 97.6 F 87 21 H 149/70 H 96 - Problem List Review Problem List Initiated/Reviewed/Updated: Yes - My Orders Last 24 Hours: My Active Orders 08/19/20 09:19 Consult to Physical Therapy [PT Evaluation and Treatment] [CONS] Routine 08/19/20 09:45 Bladder Irrigation [RC] CONTINUOUS 08/19/20 11:00 EKG Documentation Completion [RC] STAT Amiodarone [Cordarone] 100 mg PO DAILY 08/19/20 11:04 RT Post Treatment Assessment [RC] Click to Edit RT Pre-Treatment Assessment [RC] Click to Edit 08/19/20 11:18 TROPONIN I [CHEM] Stat 08/19/20 12:00 Ipratropium [Atrovent] 0.5 mg NEB Q6HRRT 08/19/20 21:00 Enoxaparin [Lovenox] 100 mg SUBCUT BID 08/20/20 05:11 BMP [BASIC METABOLIC PANEL,BMP] [CHEM] AM CBC WITH AUTO DIFF [HEME] AM 08/21/20 05:11 BMP [BASIC METABOLIC PANEL,BMP] [CHEM] AM CBC WITH AUTO DIFF [HEME] AM - Plan Plan:: COPD Exacerbation- Resume Azithromycin 500mg Q24, Ceftriaxone 1g Q24, Solumedrol 40mg q12hrs, discontinued Duo nebs; scheduled Ipratropium for now (less cardiac effects) . Continue using BiPap Patient has been encouraged to sit up and use Incentive spirometer A-Fib- Start Amiodarone 100 mg PO ; continue Metoprolol 100mg BID. Ordered a stat troponin and EKG to evaluate for ACS in light of increasing tachycardic episodes overnight Bacteremia- Discontinued vancomycin secondary to repeat cultures negative; afebrile otherwise CHF- Lasix, Metoprolol. HTN-Metoprolol Diabetes- Insulin sliding scale, Diabetic Diet <Carmen Tineo - Last Filed: 08/24/20 20:07> - General Info Subjective Update: I have seen and evaluated the patient and agree with the residents note unless specified in my note - Patient Data Vitals - Most Recent: Last Vital Signs Temp 35.7 C L 08/22/20 08:00 Pulse 79 08/22/20 08:38 Resp 18 08/22/20 08:00 BP 155/70 H 08/22/20 08:38 Pulse Ox 99 08/22/20 09:04 Med Orders - Current: Current Medications Discontinued Medications Acetaminophen (Tylenol) 650 mg PO Q4H PRN PRN Reason: Pain Last Admin: 08/22/20 09:59 Dose: 650 mg Documented by: Hydrocodone Bitart/Acetaminophen ([place] 325-5 Mg) 1 tab PO Q8H PRN PRN Reason: Pain (severe 7-10) Last Admin: 08/22/20 11:54 Dose: 1 tab Documented by: Albuterol/Ipratropium (Duoneb 3.0-0.5 Mg/3 Ml) 3 ml NEB Q4HRRT [facility] Last Admin: 08/18/20 17:54 Dose: 3 ml Documented by: Albuterol/Ipratropium (Duoneb 3.0-0.5 Mg/3 Ml) 3 ml NEB Q4HRRT PRN PRN Reason: Shortness of Breath Amiodarone HCl (Cordarone) 100 mg PO DAILY [facility] Last Admin: 08/21/20 10:08 Dose: 100 mg Documented by: Amiodarone HCl (Cordarone) 400 mg PO BID [facility] Last Admin: 08/22/20 08:29 Dose: 400 mg Documented by: Amitriptyline HCl (Elavil) 25 mg PO BEDTIME [facility] Last Admin: 08/21/20 21:33 Dose: 25 mg Documented by: Apixaban (Eliquis) 5 mg PO BID [facility] Last Admin: 08/22/20 08:37 Dose: 5 mg Documented by: Aspirin (Halfprin) 81 mg PO DAILY [facility] Last Admin: 08/22/20 08:33 Dose: 81 mg Documented by: Budesonide/Formoterol Fumarate (Symbicort 160-4.5 Mcg) 0 gm INH BID [facility] Last Admin: 08/22/20 08:40 Dose: 1 puff Documented by: Citalopram Hydrobromide (Celexa) 10 mg PO DAILY [facility] Last Admin: 08/22/20 08:35 Dose: 10 mg Documented by: Clopidogrel Bisulfate (Plavix) 75 mg PO DAILY [facility] Last Admin: 08/22/20 08:34 Dose: 75 mg Documented by: Diltiazem HCl (Diltiazem) 20 mg IVPUSH ONETIME ONE Stop: 08/17/20 03:23 Last Admin: 08/17/20 03:33 Dose: 20 mg Documented by: Diltiazem HCl (Diltiazem) 20 mg IVPUSH Q2H PRN PRN Reason: Tachycardia Last Admin: 08/19/20 20:45 Dose: 20 mg Documented by: Diltiazem HCl (Cardizem Cd) 120 mg PO BEDTIME [facility] Last Admin: 08/21/20 21:37 Dose: 120 mg Documented by: Enoxaparin Sodium (Lovenox) 40 mg SUBCUT Q24H [facility] Last Admin: 08/20/20 14:17 Dose: 40 mg Documented by: Enoxaparin Sodium (Lovenox) 100 mg SUBCUT BID [facility] Last Admin: 08/21/20 10:08 Dose: 100 mg Documented by: Furosemide (Lasix) 40 mg PO DAILY [facility] Last Admin: 08/22/20 08:38 Dose: 40 mg Documented by: Furosemide (Lasix) 40 mg PO DAILY [facility] Furosemide (Lasix) 20 mg IVPUSH NOW ONE Stop: 08/19/20 13:05 Last Admin: 08/19/20 13:57 Dose: 20 mg Documented by: Azithromycin 500 mg/ Sodium (Chloride) 250 mls @ 250 mls/hr IV ONETIME ONE Stop: 08/15/20 02:45 Last Admin: 08/15/20 02:15 Dose: 250 mls/hr Documented by: Ceftriaxone Sodium/Dextrose 2 (gm/ Premix) 50 mls @ 100 mls/hr IV ONETIME ONE Stop: 08/15/20 02:15 Last Admin: 08/15/20 01:57 Dose: 100 mls/hr Documented by: Ceftriaxone Sodium/Dextrose 1 (gm/ Premix) 50 mls @ 100 mls/hr IV Q24H [facility] Last Admin: 08/20/20 01:16 Dose: 100 mls/hr Documented by: Azithromycin 500 mg/ Sodium (Chloride) 250 mls @ 250 mls/hr IV Q24H [facility] Last Admin: 08/20/20 03:24 Dose: 250 mls/hr Documented by: Vancomycin HCl 1.5 gm/ Premix 300 mls @ 300 mls/hr IV ONETIME ONE Stop: 08/16/20 03:29 Last Admin: 08/16/20 03:38 Dose: 300 mls/hr Documented by: Vancomycin HCl 1.5 gm/ Premix 300 mls @ 300 mls/hr IV Q24H [facility] Last Admin: 08/18/20 20:40 Dose: 300 mls/hr Documented by: Amiodarone HCl 300 mg/ (Dextrose/Water) 106 mls @ 300 mls/hr IV .BOLUS ONE Stop: 08/19/20 04:08 Levofloxacin/Dextrose 750 mg/ (Premix) 150 mls @ 100 mls/hr IV Q24H [facility] Last Admin: 08/21/20 11:44 Dose: 100 mls/hr Documented by: Insulin Aspart (Novolog) 0 unit SUBCUT [facility]; Protocol Last Admin: 08/16/20 12:20 Dose: 4 unit Documented by: Insulin Aspart (Novolog) 0 unit SUBCUT TIDAC [facility]; Protocol Last Admin: 08/22/20 12:29 Dose: 9 units Documented by: Insulin Aspart (Novolog) 12 unit SUBCUT NOW STA Stop: 08/16/20 16:37 Last Admin: 08/16/20 17:37 Dose: 12 units Documented by: Insulin Aspart (Novolog) 7 unit SUBCUT NOW STA Stop: 08/17/20 08:03 Last Admin: 08/17/20 08:23 Dose: 7 units Documented by: Ipratropium [place] (Atrovent) 0.5 mg NEB Q6HRRT [facility] Last Admin: 08/21/20 17:21 Dose: 0.5 mg Documented by: Ketorolac Tromethamine (Toradol) 15 mg IVPUSH Q6H PRN PRN Reason: Pain Stop: 08/20/20 19:33 Last Admin: 08/19/20 19:49 Dose: 15 mg Documented by: Levofloxacin (Levaquin) 750 mg PO DAILY [facility] Stop: 08/23/20 09:01 Last Admin: 08/22/20 08:31 Dose: 750 mg Documented by: Lidocaine (Lidoderm 5%) 1,400 mg TRDERM BEDTIME [facility] Last Admin: 08/21/20 21:41 Dose: 1,400 mg Documented by: Lorazepam (Ativan) 0.5 mg IVPUSH ONETIME ONE Stop: 08/19/20 11:58 Last Admin: 08/19/20 12:31 Dose: 0.5 mg Documented by: Methocarbamol (Methocarbamol) 750 mg PO TID PRN PRN Reason: muscle spasms Methylprednisolone Sodium Succinate (Solu-Medrol) 125 mg IV Q12H [facility] Last Admin: 08/17/20 10:20 Dose: 125 mg Documented by: Methylprednisolone Sodium Succinate (Solu-Medrol) 40 mg IV Q8H [facility] Last Admin: 08/18/20 04:40 Dose: 40 mg Documented by: Methylprednisolone Sodium Succinate (Solu-Medrol) 40 mg IV Q12H [facility] Last Admin: 08/20/20 01:13 Dose: 40 mg Documented by: Methylprednisolone Sodium Succinate (Solu-Medrol) 40 mg IV DAILY [facility] Last Admin: 08/21/20 09:34 Dose: 40 mg Documented by: Metoprolol Succinate (Toprol Xl) 50 mg PO ONETIME ONE Stop: 08/18/20 10:48 Last Admin: 08/18/20 11:24 Dose: 50 mg Documented by: Metoprolol Tartrate (Lopressor) 50 mg PO BID [facility] Last Admin: 08/18/20 08:53 Dose: 50 mg Documented by: Metoprolol Tartrate (Lopressor) 100 mg PO BID [facility] Last Admin: 08/22/20 08:38 Dose: 100 mg Documented by: Miscellaneous Information (Remove Patch) 1 ea TRDERM DAILY [facility] Last Admin: 08/22/20 08:38 Dose: 1 ea Documented by: Ondansetron HCl (Zofran) 4 mg IVPUSH Q4H PRN PRN Reason: Nausea/Vomiting Last Admin: 08/15/20 13:27 Dose: 4 mg Documented by: Pantoprazole Sodium (Protonix) 40 mg PO ACBREAKFAST [facility] Last Admin: 08/22/20 08:16 Dose: 40 mg Documented by: Budesonide/Formoterol 160-4.5 Mcg/Puff 6 Gm Inhaler 2 each INH BID [facility] Last Admin: 08/21/20 10:11 Dose: Not Given Documented by: Tiotropium [place] [ Spiriva Respimat] 2. 5 Mcg 1 each INH Q24H [facility] Last Admin: 08/22/20 10:29 Dose: Not Given Documented by: Methocarbamol 750 Mg (Tab) 1 each PO TID PRN PRN Reason: muscle spasms Polyethylene Glycol (Miralax) 17 gm PO DAILY [facility] Last Admin: 08/22/20 08:41 Dose: Not Given Documented by: Prednisone (Prednisone) 40 mg PO WITHBREAKFAST [facility] Last Admin: 08/22/20 08:34 Dose: 40 mg Documented by: Rosuvastatin Calcium (Crestor) 40 mg PO BEDTIME [facility] Last Admin: 08/21/20 21:34 Dose: 40 mg Documented by: Sodium Chloride (Saline Flush) 10 ml FLUSH ASDIRECTED PRN PRN Reason: Keep Vein Open Sodium Chloride (Saline Flush) 2.5 ml FLUSH ASDIRECTED PRN PRN Reason: Keep Vein Open Spironolactone (Aldactone) 50 mg PO DAILY [facility] Last Admin: 08/22/20 08:36 Dose: 50 mg Documented by: Vancomycin HCl (Pharmacy To Dose - Vancomycin) 1 dose .XX ASDIRECTED [facility]
[2020-08-19] MEDS: Amiodarone 200 MG Tab PO SCH (11:51)
[2020-08-19] MEDS ORDERED: LORazepam 2 MG/ML SDV IVPUSH ONE (11:57)
[2020-08-19] MEDS: Tiotropium Bromide [Spiriva Respimat] 2.5 MCG INH SCH (12:30)
[2020-08-19] MEDS: Enoxaparin 40 MG/0.4 ML Syringe SUBCUT SCH (12:31)
[2020-08-19] MEDS ORDERED: Furosemide 20 MG/2 ML VIAL IVPUSH ONE (13:04)
[2020-08-19] MEDS: Ipratropium 0.02% 0.5 MG/2.5 ML Neb Soln NEB SCH ×2 (15:17→17:00)
[2020-08-19] MEDS: Ketorolac 15 MG/ML SDV IVPUSH PRN (19:49)
[2020-08-19] MEDS: Amitriptyline 25 MG Tab PO SCH (20:56)
[2020-08-19] MEDS: Enoxaparin 100 MG/1 ML Syringe SUBCUT SCH (20:56)
--- NOTE | 2020-08-19 22:38 | PCM.SN.2 ---
- Free Text/Narrative Note: Attempted to call daughter listed as contact to update about patients status, went to voice mail.
[2020-08-20] MEDS: Ipratropium 0.02% 0.5 MG/2.5 ML Neb Soln NEB SCH ×4 (01:07→17:40)
[2020-08-20] MEDS: methylPREDNISolone Sodium Succinate 40 MG/1 ML SDV IV SCH (01:13)
[2020-08-20] MEDS: cefTRIAXone 1 GM in Premix Bag 1 BAG IV SCH (01:16)
[2020-08-20] MEDS: Azithromycin 500 MG in Sodium Chloride 0.9% 250 ML IV SCH (03:24)
[2020-08-20 06:50] LABS: BLOOD UREA NITROGEN,BUN 42 mg/dL (7.0-18.0); CARBON DIOXIDE,CO2 35.3 mmol/L (21.0-32.0); CHLORIDE,CL 101 mmol/L (98-107); GLUCOSE RANDOM 322 mg/dL (74-106); POTASSIUM,K 4.6 mmol/L (3.5-5.1); SODIUM,NA 140 mmol/L (136-148)
--- NOTE | 2020-08-20 07:06 | CR ---
Indication: Hypoxia Technique: Chest 1 view Comparison: 08/15/2020 Findings/Impression: Cardiovascular and mediastinum: Cardiomegaly again seen. Lungs and pleural space: Persistent bibasilar and left mid lung opacities. Correlate for pneumonia and follow-up. A left pleural effusion is not excluded. Bones and soft tissues: No significant change. Dictated by Morgan Yan MD @ 08/20/2020 7:05:21 AM Dictated by: Morgan Yan MD @ 08/20/2020 07:05:26 (Electronically Signed)
[2020-08-20] MEDS: Pantoprazole 40 MG Tab.CR PO SCH (07:16)
[2020-08-20] MEDS: Insulin Aspart 100 Units/ML 3 ML Pen SUBCUT SCH ×3 (10:37→17:57)
[2020-08-20] MEDS: Clopidogrel 75 MG Tab PO SCH (10:38)
[2020-08-20] MEDS: Citalopram 20 MG Tab PO SCH (10:39)
[2020-08-20] MEDS: Aspirin 81 MG Tab.EC PO SCH (10:39)
[2020-08-20] MEDS: Metoprolol Tartrate 50 MG Tab PO SCH ×2 (10:39→21:59)
[2020-08-20] MEDS: Furosemide 40 MG Tab PO SCH (10:40)
[2020-08-20] MEDS: Spironolactone 25 MG Tab PO SCH (10:40)
[2020-08-20] MEDS: Polyethylene Glycol 3350 Powder 17 GM Packet PO SCH (10:41)
[2020-08-20] MEDS: Enoxaparin 100 MG/1 ML Syringe SUBCUT SCH ×2 (10:41→22:00)
[2020-08-20] MEDS: Budesonide/Formoterol 160-4.5 MCG/Puff 6 GM Inhaler INH SCH ×4 (10:43→22:11)
[2020-08-20] MEDS: Amiodarone 200 MG Tab PO SCH (10:47)
[2020-08-20] MEDS: Levofloxacin/Dextrose 5%-Water 750 MG in Premix Bag 1 BAG IV SCH (12:09)
[2020-08-20] MEDS: Tiotropium Bromide [Spiriva Respimat] 2.5 MCG INH SCH (12:09)
[2020-08-20] MEDS: Enoxaparin 40 MG/0.4 ML Syringe SUBCUT SCH (14:17)
--- NOTE | 2020-08-20 18:20 | PCM.PN ---
<Ady Smith - Last Filed: 08/20/20 18:25> - General Info Date of Service: 08/20/20 Subjective Update: Patient states that he did not sleep well yesterday. He says that he feels more anxious and has increased SOB today. Denies chest pain, fever, chills nausea. - Review of Systems General: Denies: Fever, Fatigue, Chills Pulmonary: Reports: Shortness of Breath. Denies: Pleuritic Chest Pain, Cough Cardiovascular: Denies: Chest Pain, Palpitations, Dyspnea on Exertion Gastrointestinal: Denies: Abdominal Pain, Decreased Appetite, Diarrhea, Nausea, Vomiting Neurological: Denies: Confusion, Dizziness, Headache Psychiatric: Reports: Anxiety - Patient Data Vitals - Most Recent: Last Vital Signs Temp 97.4 F 08/20/20 14:55 Pulse 94 08/20/20 14:55 Resp 22 H 08/20/20 14:55 BP 167/84 H 08/20/20 14:55 Pulse Ox 97 08/20/20 14:55 Weight - Most Recent: 103 kg I&O - Last 24 Hours: Intake & Output 08/20/20 08/20/20 08/20/20 06:59 14:59 22:59 Intake Total 500 400 Output Total 450 1100 Balance 50 -700 Lab Results Last 24 Hours: Laboratory Results - last 24 hr 08/19/20 08/20/20 08/20/20 Range/Units 20:32 06:00 06:00 WBC 8.48 (4.0-11.0) K/uL RBC 4.15 L (4.50-5.90) M/uL Hgb 11.9 L (13.0-17.0) g/dL Hct 38.6 (38.0-50.0) % MCV 93.0 (80.0-98.0) fL MCH 28.7 (27.0-32.0) pg MCHC 30.8 L (31.0-37.0) g/dL RDW Std Deviation 50.5 (28.0-62.0) fl RDW Coeff of Rocco 15 (11.0-15.0) % Plt Count 291 (150-400) K/uL MPV 10.10 (7.40-12.00) fL Neut % (Auto) 83.5 H (48.0-80.0) % Lymph % (Auto) 12.0 L (16.0-40.0) % Wheeler % (Auto) 4.5 (0.0-15.0) % Eos % (Auto) 0.0 (0.0-7.0) % Baso % (Auto) 0.0 (0.0-1.5) % Neut # (Auto) 7.1 H (1.4-5.7) K/uL Lymph # (Auto) 1.0 (0.6-2.4) K/uL Wheeler # (Auto) 0.4 (0.0-0.8) K/uL Eos # (Auto) 0.0 (0.0-0.7) K/uL Baso # (Auto) 0.0 (0.0-0.1) K/uL Nucleated RBC % 0.0 /100WBC Nucleated RBCs # 0 K/uL Sodium 140 (136-148) mmol/L Potassium 4.6 (3.5-5.1) mmol/L Chloride 101 (98-107) mmol/L Carbon Dioxide 35.3 H (21.0-32.0) mmol/L BUN 42 H (7.0-18.0) mg/dL Creatinine 1.0 (0.8-1.3) mg/dL Est Cr Clr Drug Dosing 65.74 mL/min Estimated GFR (MDRD) > 60.0 ml/min Glucose 322 H (74-106) mg/dL POC Glucose (60-110) mg/dL Calcium 8.5 (8.5-10.1) mg/dL Vancomycin Trough 11.6 H (5.0-10.0) ug/mL 08/20/20 08/20/20 08/20/20 Range/Units 07:15 13:21 17:53 WBC (4.0-11.0) K/uL RBC (4.50-5.90) M/uL Hgb (13.0-17.0) g/dL Hct (38.0-50.0) % MCV (80.0-98.0) fL MCH (27.0-32.0) pg MCHC (31.0-37.0) g/dL RDW Std Deviation (28.0-62.0) fl RDW Coeff of Rocco (11.0-15.0) % Plt Count (150-400) K/uL MPV (7.40-12.00) fL Neut % (Auto) (48.0-80.0) % Lymph % (Auto) (16.0-40.0) % Wheeler % (Auto) (0.0-15.0) % Eos % (Auto) (0.0-7.0) % Baso % (Auto) (0.0-1.5) % Neut # (Auto) (1.4-5.7) K/uL Lymph # (Auto) (0.6-2.4) K/uL Wheeler # (Auto) (0.0-0.8) K/uL Eos # (Auto) (0.0-0.7) K/uL Baso # (Auto) (0.0-0.1) K/uL Nucleated RBC % /100WBC Nucleated RBCs # K/uL Sodium (136-148) mmol/L Potassium (3.5-5.1) mmol/L Chloride (98-107) mmol/L Carbon Dioxide (21.0-32.0) mmol/L BUN (7.0-18.0) mg/dL Creatinine (0.8-1.3) mg/dL Est Cr Clr Drug Dosing mL/min Estimated GFR (MDRD) ml/min Glucose (74-106) mg/dL POC Glucose 319 H 359 H 129 H (60-110) mg/dL Calcium (8.5-10.1) mg/dL Vancomycin Trough (5.0-10.0) ug/mL Jason Results Last 24 Hours: Microbiology 08/17/20 13:56 Aerobic Blood Culture - Preliminary Blood - Venous - Lab Draw NO GROWTH AFTER 3 DAYS Anaerobic Blood Culture - Preliminary NO GROWTH AFTER 3 DAYS 08/17/20 13:50 Aerobic Blood Culture - Preliminary Blood - Venous NO GROWTH AFTER 3 DAYS Anaerobic Blood Culture - Preliminary NO GROWTH AFTER 3 DAYS 08/15/20 01:53 Aerobic Blood Culture - Final Blood - Venous Anaerobic Blood Culture - Preliminary 08/15/20 01:59 Aerobic Blood Culture - Final Blood - Venous - Lab Draw NO GROWTH AFTER 5 DAYS Anaerobic Blood Culture - Final NO GROWTH AFTER 5 DAYS Med Orders - Current: Current Medications Acetaminophen (Tylenol) 650 mg PO Q4H PRN PRN Reason: Pain Last Admin: 08/16/20 23:01 Dose: 650 mg Documented by: Hydrocodone Bitart/Acetaminophen ([place] 325-5 Mg) 1 tab PO Q8H PRN PRN Reason: Pain (severe 7-10) Last Admin: 08/19/20 21:02 Dose: 1 tab Documented by: Amiodarone HCl (Cordarone) 100 mg PO DAILY [facility] Last Admin: 08/20/20 10:47 Dose: 100 mg Documented by: Amitriptyline HCl (Elavil) 25 mg PO BEDTIME [facility] Last Admin: 08/19/20 20:56 Dose: 25 mg Documented by: Aspirin (Halfprin) 81 mg PO DAILY [facility] Last Admin: 08/20/20 10:39 Dose: 81 mg Documented by: Budesonide/Formoterol Fumarate (Symbicort 160-4.5 Mcg) 0 gm INH BID [facility] Last Admin: 08/20/20 10:45 Dose: 1 puff Documented by: Citalopram Hydrobromide (Celexa) 10 mg PO DAILY [facility] Last Admin: 08/20/20 10:39 Dose: 10 mg Documented by: Clopidogrel Bisulfate (Plavix) 75 mg PO DAILY [facility] Last Admin: 08/20/20 10:38 Dose: 75 mg Documented by: Diltiazem HCl (Diltiazem) 20 mg IVPUSH Q2H PRN PRN Reason: Tachycardia Last Admin: 08/19/20 20:45 Dose: 20 mg Documented by: Enoxaparin Sodium (Lovenox) 40 mg SUBCUT Q24H [facility] Last Admin: 08/20/20 14:17 Dose: 40 mg Documented by: Enoxaparin Sodium (Lovenox) 100 mg SUBCUT BID [facility] Last Admin: 08/20/20 10:41 Dose: 100 mg Documented by: Furosemide (Lasix) 40 mg PO DAILY [facility] Last Admin: 08/20/20 10:40 Dose: 40 mg Documented by: Levofloxacin/Dextrose 750 mg/ (Premix) 150 mls @ 100 mls/hr IV Q24H [facility] Last Admin: 08/20/20 12:09 Dose: 100 mls/hr Documented by: Insulin Aspart (Novolog) 0 unit SUBCUT TIDAC [facility]; Protocol Last Admin: 08/20/20 17:57 Dose: Not Given Documented by: Ipratropium [place] (Atrovent) 0.5 mg NEB Q6HRRT [facility] Last Admin: 08/20/20 17:40 Dose: 0.5 mg Documented by: Ketorolac Tromethamine (Toradol) 15 mg IVPUSH Q6H PRN PRN Reason: Pain Stop: 08/20/20 19:33 Last Admin: 08/19/20 19:49 Dose: 15 mg Documented by: Methylprednisolone Sodium Succinate (Solu-Medrol) 40 mg IV DAILY [facility] Metoprolol Tartrate (Lopressor) 100 mg PO BID [facility] Last Admin: 08/20/20 10:39 Dose: 100 mg Documented by: Ondansetron HCl (Zofran) 4 mg IVPUSH Q4H PRN PRN Reason: Nausea/Vomiting Last Admin: 08/15/20 13:27 Dose: 4 mg Documented by: Pantoprazole Sodium (Protonix) 40 mg PO ACBREAKFAST [facility] Last Admin: 08/20/20 07:16 Dose: 40 mg Documented by: Budesonide/Formoterol 160-4.5 Mcg/Puff 6 Gm Inhaler 2 each INH BID [facility] Last Admin: 08/20/20 10:43 Dose: Not Given Documented by: Tiotropium [place] [ Spiriva Respimat] 2. 5 Mcg 1 each INH Q24H [facility] Last Admin: 08/20/20 12:09 Dose: Not Given Documented by: Methocarbamol 750 Mg (Tab) 1 each PO TID PRN PRN Reason: muscle spasms Polyethylene Glycol (Miralax) 17 gm PO DAILY [facility] Last Admin: 08/20/20 10:41 Dose: 17 gm Documented by: Sodium Chloride (Saline Flush) 10 ml FLUSH ASDIRECTED PRN PRN Reason: Keep Vein Open Sodium Chloride (Saline Flush) 2.5 ml FLUSH ASDIRECTED PRN PRN Reason: Keep Vein Open Spironolactone (Aldactone) 50 mg PO DAILY [facility] Last Admin: 08/20/20 10:40 Dose: 50 mg Documented by: Vancomycin HCl (Pharmacy To Dose - Vancomycin) 1 dose .XX ASDIRECTED [facility] Discontinued Medications Albuterol/Ipratropium (Duoneb 3.0-0.5 Mg/3 Ml) 3 ml NEB Q4HRRT [facility] Last Admin: 08/18/20 17:54 Dose: 3 ml Documented by: Diltiazem HCl (Diltiazem) 20 mg IVPUSH ONETIME ONE Stop: 08/17/20 03:23 Last Admin: 08/17/20 03:33 Dose: 20 mg Documented by: Furosemide (Lasix) 40 mg PO DAILY [facility] Furosemide (Lasix) 20 mg IVPUSH NOW ONE Stop: 08/19/20 13:05 Last Admin: 08/19/20 13:57 Dose: 20 mg Documented by: Azithromycin 500 mg/ Sodium (Chloride) 250 mls @ 250 mls/hr IV ONETIME ONE Stop: 08/15/20 02:45 Last Admin: 08/15/20 02:15 Dose: 250 mls/hr Documented by: Ceftriaxone Sodium/Dextrose 2 (gm/ Premix) 50 mls @ 100 mls/hr IV ONETIME ONE Stop: 08/15/20 02:15 Last Admin: 08/15/20 01:57 Dose: 100 mls/hr Documented by: Ceftriaxone Sodium/Dextrose 1 (gm/ Premix) 50 mls @ 100 mls/hr IV Q24H [facility] Last Admin: 08/20/20 01:16 Dose: 100 mls/hr Documented by: Azithromycin 500 mg/ Sodium (Chloride) 250 mls @ 250 mls/hr IV Q24H [facility] Last Admin: 08/20/20 03:24 Dose: 250 mls/hr Documented by: Vancomycin HCl 1.5 gm/ Premix 300 mls @ 300 mls/hr IV ONETIME ONE Stop: 08/16/20 03:29 Last Admin: 08/16/20 03:38 Dose: 300 mls/hr Documented by: Vancomycin HCl 1.5 gm/ Premix 300 mls @ 300 mls/hr IV Q24H [facility] Last Admin: 08/18/20 20:40 Dose: 300 mls/hr Documented by: Amiodarone HCl 300 mg/ (Dextrose/Water) 106 mls @ 300 mls/hr IV .BOLUS ONE Stop: 08/19/20 04:08 [facility]ulin [facility]Nov[facility]) [facility] Last Admin: 08/16/20 12:20 Dose: 4 unit Documented by: Insulin Aspart (Novolog) 12 unit SUBCUT NOW STA Stop: 08/16/20 16:37 Last Admin: 08/16/20 17:37 Dose: 12 units Documented by: Insulin Aspart (Novolog) 7 unit SUBCUT NOW STA Stop: 08/17/20 08:03 Last Admin: 08/17/20 08:23 Dose: 7 units Documented by: Lorazepam (Ativan) 0.5 mg IVPUSH ONETIME ONE Stop: 08/19/20 11:58 Last Admin: 08/19/20 12:31 Dose: 0.5 mg Documented by: Methocarbamol (Methocarbamol) 750 mg PO TID PRN PRN Reason: muscle spasms Methylprednisolone Sodium Succinate (Solu-Medrol) 125 mg IV Q12H [facility] Last Admin: 08/17/20 10:20 Dose: 125 mg Documented by: Methylprednisolone Sodium Succinate (Solu-Medrol) 40 mg IV Q8H [facility] Last Admin: 08/18/20 04:40 Dose: 40 mg Documented by: Methylprednisolone Sodium Succinate (Solu-Medrol) 40 mg IV Q12H [facility] Last Admin: 08/20/20 01:13 Dose: 40 mg Documented by: Metoprolol Succinate (Toprol Xl) 50 mg PO ONETIME ONE Stop: 08/18/20 10:48 Last Admin: 08/18/20 11:24 Dose: 50 mg Documented by: Metoprolol Tartrate (Lopressor) 50 mg PO BID [facility] Last Admin: 08/18/20 08:53 Dose: 50 mg Documented by: - Exam General: Alert, Oriented Lungs: Decreased Breath Sounds, Rales, Wheezing Cardiovascular: Regular Rate, Irregular Rhythm GI/Abdominal Exam: Soft, Non-Tender, No Distention Back Exam: CVA Tenderness (R) Extremities: Pedal Edema Skin: Warm, Dry Sepsis Event Note - Evaluation Sepsis Screening Result: No Definite Risk - Focused Exam Vital Signs: Vital Signs Temp Pulse Pulse Resp BP BP Pulse Ox 08/20/20 14:55 97.4 F 94 22 H 167/84 H 97 08/20/20 11:38 96.9 F 69 24 H 189/84 H 92 L 08/20/20 10:53 08/20/20 10:39 88 138/72 Pulse Ox 08/20/20 14:55 08/20/20 11:38 08/20/20 10:53 92 L 08/20/20 10:39 - Problem List Review Problem List Initiated/Reviewed/Updated: Yes - My Orders Last 24 Hours: My Active Orders 08/20/20 11:15 Levofloxacin/Dextrose 5%-Water [Levaquin in D5W 750 MG/150 ML] 750 mg Premix Bag 1 bag IV Q24H 08/21/20 09:00 methylPREDNISolone Sod Succ [Solu-MEDROL] 40 mg IV DAILY - Plan Plan:: COPD Exacerbation- IV levaquin 750mg daily, Solumedrol 40mg daily, scheduled Ipratropium and symbicort. Continue using BiPap, Incentive Spirometry, Chest PT A-Fib- Start Amiodarone 100 mg PO, continue Metoprolol 100mg BID. CHF- Lasix, Metoprolol. HTN-Metoprolol Diabetes- Insulin sliding scale, Diabetic Diet <Carmen Tineo - Last Filed: 08/24/20 19:59> - General Info Subjective Update: I have seen and evaluated the patient and agree with the residents note unless specified in my note - Patient Data Vitals - Most Recent: Last Vital Signs Temp 35.7 C L 08/22/20 08:00 Pulse 79 08/22/20 08:38 Resp 18 08/22/20 08:00 BP 155/70 H 08/22/20 08:38 Pulse Ox 99 08/22/20 09:04 Med Orders - Current: Current Medications Discontinued Medications Acetaminophen (Tylenol) 650 mg PO Q4H PRN PRN Reason: Pain Last Admin: 08/22/20 09:59 Dose: 650 mg Documented by: Hydrocodone Bitart/Acetaminophen ([place] 325-5 Mg) 1 tab PO Q8H PRN PRN Reason: Pain (severe 7-10) Last Admin: 08/22/20 11:54 Dose: 1 tab Documented by: Albuterol/Ipratropium (Duoneb 3.0-0.5 Mg/3 Ml) 3 ml NEB Q4HRRT [facility] Last Admin: 08/18/20 17:54 Dose: 3 ml Documented by: Albuterol/Ipratropium (Duoneb 3.0-0.5 Mg/3 Ml) 3 ml NEB Q4HRRT PRN PRN Reason: Shortness of Breath Amiodarone HCl (Cordarone) 100 mg PO DAILY [facility] Last Admin: 08/21/20 10:08 Dose: 100 mg Documented by: Amiodarone HCl (Cordarone) 400 mg PO BID [facility] Last Admin: 08/22/20 08:29 Dose: 400 mg Documented by: Amitriptyline HCl (Elavil) 25 mg PO BEDTIME [facility] Last Admin: 08/21/20 21:33 Dose: 25 mg Documented by: Apixaban (Eliquis) 5 mg PO BID [facility] Last Admin: 08/22/20 08:37 Dose: 5 mg Documented by: Aspirin (Halfprin) 81 mg PO DAILY [facility] Last Admin: 08/22/20 08:33 Dose: 81 mg Documented by: Budesonide/Formoterol Fumarate (Symbicort 160-4.5 Mcg) 0 gm INH BID [facility] Last Admin: 08/22/20 08:40 Dose: 1 puff Documented by: Citalopram Hydrobromide (Celexa) 10 mg PO DAILY [facility] Last Admin: 08/22/20 08:35 Dose: 10 mg Documented by: Clopidogrel Bisulfate (Plavix) 75 mg PO DAILY [facility] Last Admin: 08/22/20 08:34 Dose: 75 mg Documented by: Diltiazem HCl (Diltiazem) 20 mg IVPUSH ONETIME ONE Stop: 08/17/20 03:23 Last Admin: 08/17/20 03:33 Dose: 20 mg Documented by: Diltiazem HCl (Diltiazem) 20 mg IVPUSH Q2H PRN PRN Reason: Tachycardia Last Admin: 08/19/20 20:45 Dose: 20 mg Documented by: Diltiazem HCl (Cardizem Cd) 120 mg PO BEDTIME [facility] Last Admin: 08/21/20 21:37 Dose: 120 mg Documented by: Enoxaparin Sodium (Lovenox) 40 mg SUBCUT Q24H [facility] Last Admin: 08/20/20 14:17 Dose: 40 mg Documented by: Enoxaparin Sodium (Lovenox) 100 mg SUBCUT BID [facility] Last Admin: 08/21/20 10:08 Dose: 100 mg Documented by: Furosemide (Lasix) 40 mg PO DAILY [facility] Last Admin: 08/22/20 08:38 Dose: 40 mg Documented by: Furosemide (Lasix) 40 mg PO DAILY [facility] Furosemide (Lasix) 20 mg IVPUSH NOW ONE Stop: 08/19/20 13:05 Last Admin: 08/19/20 13:57 Dose: 20 mg Documented by: Azithromycin 500 mg/ Sodium (Chloride) 250 mls @ 250 mls/hr IV ONETIME ONE Stop: 08/15/20 02:45 Last Admin: 08/15/20 02:15 Dose: 250 mls/hr Documented by: Ceftriaxone Sodium/Dextrose 2 (gm/ Premix) 50 mls @ 100 mls/hr IV ONETIME ONE Stop: 08/15/20 02:15 Last Admin: 08/15/20 01:57 Dose: 100 mls/hr Documented by: Ceftriaxone Sodium/Dextrose 1 (gm/ Premix) 50 mls @ 100 mls/hr IV Q24H [facility] Last Admin: 08/20/20 01:16 Dose: 100 mls/hr Documented by: Azithromycin 500 mg/ Sodium (Chloride) 250 mls @ 250 mls/hr IV Q24H [facility] Last Admin: 08/20/20 03:24 Dose: 250 mls/hr Documented by: Vancomycin HCl 1.5 gm/ Premix 300 mls @ 300 mls/hr IV ONETIME ONE Stop: 08/16/20 03:29 Last Admin: 08/16/20 03:38 Dose: 300 mls/hr Documented by: Vancomycin HCl 1.5 gm/ Premix 300 mls @ 300 mls/hr IV Q24H [facility] Last Admin: 08/18/20 20:40 Dose: 300 mls/hr Documented by: Amiodarone HCl 300 mg/ (Dextrose/Water) 106 mls @ 300 mls/hr IV .BOLUS ONE Stop: 08/19/20 04:08 Levofloxacin/Dextrose 750 mg/ (Premix) 150 mls @ 100 mls/hr IV Q24H [facility] Last Admin: 08/21/20 11:44 Dose: 100 mls/hr Documented by: Insulin Aspart (Novolog) 0 unit SUBCUT TIDAC [facility]; Protocol Last Admin: 08/16/20 12:20 Dose: 4 unit Documented by: Insulin Aspart (Novolog) 0 unit SUBCUT TIDAC [facility]; Protocol Last Admin: 08/22/20 12:29 Dose: 9 units Documented by: Insulin Aspart (Novolog) 12 unit SUBCUT NOW STA Stop: 08/16/20 16:37 Last Admin: 08/16/20 17:37 Dose: 12 units Documented by: Insulin Aspart (Novolog) 7 unit SUBCUT NOW STA Stop: 08/17/20 08:03 Last Admin: 08/17/20 08:23 Dose: 7 units Documented by: Ipratropium [place] (Atrovent) 0.5 mg NEB Q6HRRT [facility] Last Admin: 08/21/20 17:21 Dose: 0.5 mg Documented by: Ketorolac Tromethamine (Toradol) 15 mg IVPUSH Q6H PRN PRN Reason: Pain Stop: 08/20/20 19:33 Last Admin: 08/19/20 19:49 Dose: 15 mg Documented by: Levofloxacin (Levaquin) 750 mg PO DAILY [facility] Stop: 08/23/20 09:01 Last Admin: 08/22/20 08:31 Dose: 750 mg Documented by: Lidocaine (Lidoderm 5%) 1,400 mg TRDERM BEDTIME [facility] Last Admin: 08/21/20 21:41 Dose: 1,400 mg Documented by: Lorazepam (Ativan) 0.5 mg IVPUSH ONETIME ONE Stop: 08/19/20 11:58 Last Admin: 08/19/20 12:31 Dose: 0.5 mg Documented by: Methocarbamol (Methocarbamol) 750 mg PO TID PRN PRN Reason: muscle spasms Methylprednisolone Sodium Succinate (Solu-Medrol) 125 mg IV Q12H [facility] Last Admin: 08/17/20 10:20 Dose: 125 mg Documented by: Methylprednisolone Sodium Succinate (Solu-Medrol) 40 mg IV Q8H [facility] Last Admin: 08/18/20 04:40 Dose: 40 mg Documented by: Methylprednisolone Sodium Succinate (Solu-Medrol) 40 mg IV Q12H [facility] Last Admin: 08/20/20 01:13 Dose: 40 mg Documented by: Methylprednisolone Sodium Succinate (Solu-Medrol) 40 mg IV DAILY [facility] Last Admin: 08/21/20 09:34 Dose: 40 mg Documented by: Metoprolol Succinate (Toprol Xl) 50 mg PO ONETIME ONE Stop: 08/18/20 10:48 Last Admin: 08/18/20 11:24 Dose: 50 mg Documented by: Metoprolol Tartrate (Lopressor) 50 mg PO BID [facility] Last Admin: 08/18/20 08:53 Dose: 50 mg Documented by: Metoprolol Tartrate (Lopressor) 100 mg PO BID [facility] Last Admin: 08/22/20 08:38 Dose: 100 mg Documented by: Miscellaneous Information (Remove Patch) 1 ea TRDERM DAILY [facility] Last Admin: 08/22/20 08:38 Dose: 1 ea Documented by: Ondansetron HCl (Zofran) 4 mg IVPUSH Q4H PRN PRN Reason: Nausea/Vomiting Last Admin: 08/15/20 13:27 Dose: 4 mg Documented by: Pantoprazole Sodium (Protonix) 40 mg PO ACBREAKFAST [facility] Last Admin: 08/22/20 08:16 Dose: 40 mg Documented by: Budesonide/Formoterol 160-4.5 Mcg/Puff 6 Gm Inhaler 2 each INH BID [facility] Last Admin: 08/21/20 10:11 Dose: Not Given Documented by: Tiotropium [place] [ Spiriva Respimat] 2. 5 Mcg 1 each INH Q24H [facility] Last Admin: 08/22/20 10:29 Dose: Not Given Documented by: Methocarbamol 750 Mg (Tab) 1 each PO TID PRN PRN Reason: muscle spasms Polyethylene Glycol (Miralax) 17 gm PO DAILY [facility] Last Admin: 08/22/20 08:41 Dose: Not Given Documented by: Prednisone (Prednisone) 40 mg PO WITHBREAKFAST [facility] Last Admin: 08/22/20 08:34 Dose: 40 mg Documented by: Rosuvastatin Calcium (Crestor) 40 mg PO BEDTIME [facility] Last Admin: 08/21/20 21:34 Dose: 40 mg Documented by: Sodium Chloride (Saline Flush) 10 ml FLUSH ASDIRECTED PRN PRN Reason: Keep Vein Open Sodium Chloride (Saline Flush) 2.5 ml FLUSH ASDIRECTED PRN PRN Reason: Keep Vein Open Spironolactone (Aldactone) 50 mg PO DAILY [facility] Last Admin: 08/22/20 08:36 Dose: 50 mg Documented by: Vancomycin HCl (Pharmacy To Dose - Vancomycin) 1 dose .XX ASDIRECTED [facility]
[2020-08-20] MEDS: Acetaminophen/HYDROcodone 325-5 MG Tab PO PRN (21:15)
[2020-08-20] MEDS: Diltiazem 120 MG Cap.CD PO SCH (21:59)
[2020-08-20] MEDS: Amitriptyline 25 MG Tab PO SCH (21:59)
[2020-08-21] MEDS: Ipratropium 0.02% 0.5 MG/2.5 ML Neb Soln NEB SCH ×4 (02:26→17:21)
[2020-08-21] MEDS: Lidocaine 5% 700 MG Patch TRDERM SCH ×2 (02:30→21:41)
[2020-08-21 06:18] LABS: BLOOD UREA NITROGEN,BUN 38 mg/dL (7.0-18.0); CARBON DIOXIDE,CO2 34.8 mmol/L (21.0-32.0); CHLORIDE,CL 100 mmol/L (98-107); GLUCOSE RANDOM 237 mg/dL (74-106); SODIUM,NA 141 mmol/L (136-148)
[2020-08-21] MEDS: Pantoprazole 40 MG Tab.CR PO SCH (07:58)
[2020-08-21] MEDS ORDERED: methylPREDNISolone Sodium Succinate 40 MG/1 ML SDV IV SCH (09:00)
[2020-08-21] MEDS: Insulin Aspart 100 Units/ML 3 ML Pen SUBCUT SCH ×3 (09:32→18:29)
[2020-08-21] MEDS: Polyethylene Glycol 3350 Powder 17 GM Packet PO SCH (09:36)
[2020-08-21] MEDS: Spironolactone 25 MG Tab PO SCH (09:37)
[2020-08-21] MEDS: Aspirin 81 MG Tab.EC PO SCH (09:39)
[2020-08-21] MEDS: Metoprolol Tartrate 50 MG Tab PO SCH ×2 (09:41→21:36)
[2020-08-21] MEDS: Citalopram 20 MG Tab PO SCH (09:45)
[2020-08-21] MEDS: Clopidogrel 75 MG Tab PO SCH (09:53)
[2020-08-21] MEDS: Furosemide 40 MG Tab PO SCH (09:53)
[2020-08-21] MEDS: Acetaminophen/HYDROcodone 325-5 MG Tab PO PRN ×2 (09:53→18:31)
[2020-08-21] MEDS: Enoxaparin 100 MG/1 ML Syringe SUBCUT SCH (10:08)
[2020-08-21] MEDS: Amiodarone 200 MG Tab PO SCH ×2 (10:08→21:31)
[2020-08-21] MEDS: Budesonide/Formoterol 160-4.5 MCG/Puff 6 GM Inhaler INH SCH ×3 (10:09→21:40)
[2020-08-21] MEDS ORDERED: Budesonide/Formoterol 160-4.5 MCG/Puff 6 GM Inhaler INH SCH (10:15)
--- NOTE | 2020-08-21 11:25 | PCM.PN ---
- General Info Date of Service: 08/21/20 Admission Dx/Problem (Free Text): Admission Diagnosis/Problem Admission Diagnosis/Problem Pneumonia Subjective Update: Feeling short of breath this morning, no chest pain. Feeling anxious. Got very dizzy sitting up to edge of bed. HR elevated. - Review of Systems General: Reports: Fatigue, Malaise HEENT: Reports: No Symptoms. Denies: Headaches, Visual Changes Pulmonary: Reports: Shortness of Breath, Cough Cardiovascular: Reports: Dyspnea on Exertion, Lightheadedness. Denies: Chest Pain Gastrointestinal: Denies: Abdominal Pain, Nausea, Vomiting Musculoskeletal: Reports: Other (all over joint pain, chronic) Skin: Reports: No Symptoms Psychiatric: Reports: No Symptoms - Patient Data Vitals - Most Recent: Last Vital Signs Temp 98 F 08/21/20 05:00 Pulse 73 08/21/20 09:41 Resp 24 H 08/21/20 05:00 BP 137/65 08/21/20 09:41 Pulse Ox 97 08/21/20 05:00 Weight - Most Recent: 103 kg I&O - Last 24 Hours: Intake & Output 08/20/20 08/21/20 08/21/20 22:59 06:59 14:59 Intake Total 400 500 Output Total 1100 700 Balance -700 -200 Lab Results Last 24 Hours: Laboratory Results - last 24 hr 08/20/20 08/20/20 08/21/20 Range/Units 13:21 17:53 05:35 WBC 8.87 (4.0-11.0) K/uL RBC 4.31 L (4.50-5.90) M/uL Hgb 12.1 L (13.0-17.0) g/dL Hct 40.0 (38.0-50.0) % MCV 92.8 (80.0-98.0) fL MCH 28.1 (27.0-32.0) pg MCHC 30.3 L (31.0-37.0) g/dL RDW Std Deviation 49.6 (28.0-62.0) fl RDW Coeff of [place] 15 (11.0-15.0) % Plt Count 292 (150-400) K/uL MPV 10.20 (7.40-12.00) fL Neut % (Auto) 72.6 (48.0-80.0) % Lymph % (Auto) 18.0 (16.0-40.0) % [place] % (Auto) 8.8 (0.0-15.0) % Eos % (Auto) 0.6 (0.0-7.0) % Baso % (Auto) 0.0 (0.0-1.5) % Neut # (Auto) 6.4 H (1.4-5.7) K/uL Lymph # (Auto) 1.6 (0.6-2.4) K/uL [place] # (Auto) 0.8 (0.0-0.8) K/uL Eos # (Auto) 0.1 (0.0-0.7) K/uL Baso # (Auto) 0.0 (0.0-0.1) K/uL Nucleated RBC % 0.0 /100WBC Nucleated RBCs # 0 K/uL Sodium (136-148) mmol/L Potassium (3.5-5.1) mmol/L Chloride (98-107) mmol/L Carbon Dioxide (21.0-32.0) mmol/L BUN (7.0-18.0) mg/dL Creatinine (0.8-1.3) mg/dL Est Cr Clr Drug Dosing mL/min Estimated GFR (MDRD) ml/min Glucose (74-106) mg/dL POC Glucose 359 H 129 H (60-110) mg/dL Calcium (8.5-10.1) mg/dL 08/21/20 Range/Units 05:35 WBC (4.0-11.0) K/uL RBC (4.50-5.90) M/uL Hgb (13.0-17.0) g/dL Hct (38.0-50.0) % MCV (80.0-98.0) fL MCH (27.0-32.0) pg MCHC (31.0-37.0) g/dL RDW Std Deviation (28.0-62.0) fl RDW Coeff of [place] (11.0-15.0) % Plt Count (150-400) K/uL MPV (7.40-12.00) fL Neut % (Auto) (48.0-80.0) % Lymph % (Auto) (16.0-40.0) % [place] % (Auto) (0.0-15.0) % Eos % (Auto) (0.0-7.0) % Baso % (Auto) (0.0-1.5) % Neut # (Auto) (1.4-5.7) K/uL Lymph # (Auto) (0.6-2.4) K/uL [place] # (Auto) (0.0-0.8) K/uL Eos # (Auto) (0.0-0.7) K/uL Baso # (Auto) (0.0-0.1) K/uL Nucleated RBC % /100WBC Nucleated RBCs # K/uL Sodium 141 (136-148) mmol/L Potassium 4.0 (3.5-5.1) mmol/L Chloride 100 (98-107) mmol/L Carbon Dioxide 34.8 H (21.0-32.0) mmol/L BUN 38 H (7.0-18.0) mg/dL Creatinine 1.1 (0.8-1.3) mg/dL Est Cr Clr Drug Dosing 59.77 mL/min Estimated GFR (MDRD) > 60.0 ml/min Glucose 237 H (74-106) mg/dL POC Glucose (60-110) mg/dL Calcium 9.0 (8.5-10.1) mg/dL Jason Results Last 24 Hours: Microbiology 08/15/20 01:53 Aerobic Blood Culture - Final Blood - Venous Anaerobic Blood Culture - Preliminary 08/17/20 13:56 Aerobic Blood Culture - Preliminary Blood - Venous - Lab Draw NO GROWTH AFTER 3 DAYS Anaerobic Blood Culture - Preliminary NO GROWTH AFTER 3 DAYS 08/17/20 13:50 Aerobic Blood Culture - Preliminary Blood - Venous NO GROWTH AFTER 3 DAYS Anaerobic Blood Culture - Preliminary NO GROWTH AFTER 3 DAYS Med Orders - Current: Current Medications Acetaminophen (Tylenol) 650 mg PO Q4H PRN PRN Reason: Pain Last Admin: 08/16/20 23:01 Dose: 650 mg Documented by: Hydrocodone Bitart/Acetaminophen ([place] 325-5 Mg) 1 tab PO Q8H PRN PRN Reason: Pain (severe 7-10) Last Admin: 08/21/20 09:53 Dose: 1 tab Documented by: Amiodarone HCl (Cordarone) 100 mg PO DAILY [facility] Last Admin: 08/21/20 10:08 Dose: 100 mg Documented by: Amitriptyline HCl (Elavil) 25 mg PO BEDTIME [facility] Last Admin: 08/20/20 21:59 Dose: 25 mg Documented by: Aspirin (Halfprin) 81 mg PO DAILY [facility] Last Admin: 08/21/20 09:39 Dose: 81 mg Documented by: Budesonide/Formoterol Fumarate (Symbicort 160-4.5 Mcg) 0 gm INH BID [facility] Last Admin: 08/21/20 10:09 Dose: 1 puff Documented by: Citalopram Hydrobromide (Celexa) 10 mg PO DAILY [facility] Last Admin: 08/21/20 09:45 Dose: 10 mg Documented by: Clopidogrel Bisulfate (Plavix) 75 mg PO DAILY [facility] Last Admin: 08/21/20 09:53 Dose: 75 mg Documented by: Diltiazem HCl (Diltiazem) 20 mg IVPUSH Q2H PRN PRN Reason: Tachycardia Last Admin: 08/19/20 20:45 Dose: 20 mg Documented by: Diltiazem HCl (Cardizem Cd) 120 mg PO BEDTIME [facility] Last Admin: 08/20/20 21:59 Dose: 120 mg Documented by: Enoxaparin Sodium (Lovenox) 100 mg SUBCUT BID [facility] Last Admin: 08/21/20 10:08 Dose: 100 mg Documented by: Furosemide (Lasix) 40 mg PO DAILY [facility] Last Admin: 08/21/20 09:53 Dose: 40 mg Documented by: Levofloxacin/Dextrose 750 mg/ (Premix) 150 mls @ 100 mls/hr IV Q24H [facility] Last Admin: 08/20/20 12:09 Dose: 100 mls/hr Documented by: Insulin Aspart (Novolog) 0 unit SUBCUT TIDAC [facility]; Protocol Last Admin: 08/21/20 09:32 Dose: 6 units Documented by: Ipratropium [place] (Atrovent) 0.5 mg NEB Q6HRRT [facility] Last Admin: 08/21/20 06:44 Dose: Not Given Documented by: Lidocaine (Lidoderm 5%) 1,400 mg TRDERM BEDTIME [facility] Last Admin: 08/21/20 02:30 Dose: 1,400 mg Documented by: Methylprednisolone Sodium Succinate (Solu-Medrol) 40 mg IV DAILY [facility] Last Admin: 08/21/20 09:34 Dose: 40 mg Documented by: Metoprolol Tartrate (Lopressor) 100 mg PO BID [facility] Last Admin: 08/21/20 09:41 Dose: 100 mg Documented by: Miscellaneous Information (Remove Patch) 1 ea TRDERM DAILY [facility] Last Admin: 08/21/20 09:51 Dose: 1 ea Documented by: Ondansetron HCl (Zofran) 4 mg IVPUSH Q4H PRN PRN Reason: Nausea/Vomiting Last Admin: 08/15/20 13:27 Dose: 4 mg Documented by: Pantoprazole Sodium (Protonix) 40 mg PO ACBREAKFAST [facility] Last Admin: 08/21/20 07:58 Dose: 40 mg Documented by: Tiotropium [place] [ Spiriva Respimat] 2. 5 Mcg 1 each INH Q24H [facility] Last Admin: 08/20/20 12:09 Dose: Not Given Documented by: Methocarbamol 750 Mg (Tab) 1 each PO TID PRN PRN Reason: muscle spasms Polyethylene Glycol (Miralax) 17 gm PO DAILY [facility] Last Admin: 08/21/20 09:36 Dose: 17 gm Documented by: Rosuvastatin Calcium (Crestor) 40 mg PO BEDTIME [facility] Sodium Chloride (Saline Flush) 10 ml FLUSH ASDIRECTED PRN PRN Reason: Keep Vein Open Sodium Chloride (Saline Flush) 2.5 ml FLUSH ASDIRECTED PRN PRN Reason: Keep Vein Open Spironolactone (Aldactone) 50 mg PO DAILY [facility] Last Admin: 08/21/20 09:37 Dose: 50 mg Documented by: Discontinued Medications Albuterol/Ipratropium (Duoneb 3.0-0.5 Mg/3 Ml) 3 ml NEB Q4HRRT [facility] Last Admin: 08/18/20 17:54 Dose: 3 ml Documented by: Diltiazem HCl (Diltiazem) 20 mg IVPUSH ONETIME ONE Stop: 08/17/20 03:23 Last Admin: 08/17/20 03:33 Dose: 20 mg Documented by: Enoxaparin Sodium (Lovenox) 40 mg SUBCUT Q24H [facility] Last Admin: 08/20/20 14:17 Dose: 40 mg Documented by: Furosemide (Lasix) 40 mg PO DAILY [facility] Furosemide (Lasix) 20 mg IVPUSH NOW ONE Stop: 08/19/20 13:05 Last Admin: 08/19/20 13:57 Dose: 20 mg Documented by: Azithromycin 500 mg/ Sodium (Chloride) 250 mls @ 250 mls/hr IV ONETIME ONE Stop: 08/15/20 02:45 Last Admin: 08/15/20 02:15 Dose: 250 mls/hr Documented by: Ceftriaxone Sodium/Dextrose 2 (gm/ Premix) 50 mls @ 100 mls/hr IV ONETIME ONE Stop: 08/15/20 02:15 Last Admin: 08/15/20 01:57 Dose: 100 mls/hr Documented by: Ceftriaxone Sodium/Dextrose 1 (gm/ Premix) 50 mls @ 100 mls/hr IV Q24H [facility] Last Admin: 08/20/20 01:16 Dose: 100 mls/hr Documented by: Azithromycin 500 mg/ Sodium (Chloride) 250 mls @ 250 mls/hr IV Q24H [facility] Last Admin: 08/20/20 03:24 Dose: 250 mls/hr Documented by: Vancomycin HCl 1.5 gm/ Premix 300 mls @ 300 mls/hr IV ONETIME ONE Stop: 08/16/20 03:29 Last Admin: 08/16/20 03:38 Dose: 300 mls/hr Documented by: Vancomycin HCl 1.5 gm/ Premix 300 mls @ 300 mls/hr IV Q24H [facility] Last Admin: 08/18/20 20:40 Dose: 300 mls/hr Documented by: Amiodarone HCl 300 mg/ (Dextrose/Water) 106 mls @ 300 mls/hr IV .BOLUS ONE Stop: 08/19/20 04:08 [facility] Protocol Last Admin: 08/16/20 12:20 Dose: 4 unit Documented by: Insulin Aspart (Novolog) 12 unit SUBCUT NOW STA Stop: 08/16/20 16:37 Last Admin: 08/16/20 17:37 Dose: 12 units Documented by: Insulin Aspart (Novolog) 7 unit SUBCUT NOW STA Stop: 08/17/20 08:03 Last Admin: 08/17/20 08:23 Dose: 7 units Documented by: Ketorolac Tromethamine (Toradol) 15 mg IVPUSH Q6H PRN PRN Reason: Pain Stop: 09/20/20 19:33 Last Admin: 08/19/20 19:49 Dose: 15 mg Documented by: Lorazepam (Ativan) 0.5 mg IVPUSH ONETIME ONE Stop: 08/19/20 11:58 Last Admin: 08/19/20 12:31 Dose: 0.5 mg Documented by: Methocarbamol (Methocarbamol) 750 mg PO TID PRN PRN Reason: muscle spasms Methylprednisolone Sodium Succinate (Solu-Medrol) 125 mg IV Q12H [facility] Last Admin: 08/17/20 10:20 Dose: 125 mg Documented by: Methylprednisolone Sodium Succinate (Solu-Medrol) 40 mg IV Q8H [facility] Last Admin: 08/18/20 04:40 Dose: 40 mg Documented by: Methylprednisolone Sodium Succinate (Solu-Medrol) 40 mg IV Q12H [facility] Last Admin: 08/20/20 01:13 Dose: 40 mg Documented by: Metoprolol Succinate (Toprol Xl) 50 mg PO ONETIME ONE Stop: 08/18/20 10:48 Last Admin: 08/18/20 11:24 Dose: 50 mg Documented by: Metoprolol Tartrate (Lopressor) 50 mg PO BID [facility] Last Admin: 08/18/20 08:53 Dose: 50 mg Documented by: Budesonide/Formoterol 160-4.5 Mcg/Puff 6 Gm Inhaler 2 each INH BID [facility] Last Admin: 08/21/20 10:11 Dose: Not Given Documented by: Vancomycin HCl (Pharmacy To Dose - Vancomycin) 1 dose .XX ASDIRECTED [facility] - Exam Quality Assessment: Supplemental Oxygen General: Alert, Oriented, Cooperative, Mild Distress (with exertion, dyspnea and tachycardia noted) Lungs: Decreased Breath Sounds Cardiovascular: Regular Rate, Regular Rhythm, Other (intermittent atrial fibrillation noted) GI/Abdominal Exam: Normal Bowel Sounds, Soft, Non-Tender Extremities: Normal Inspection, Normal Range of Motion, Non-Tender Skin: Ecchymosis (large bruising noted to L lower abdomen. icnrease bruising to arms, due to lab sticks) Neurological: No New Focal Deficit Psy/Mental Status: Alert, Normal Affect, Normal Mood Sepsis Event Note - Evaluation Sepsis Screening Result: No Definite Risk - Focused Exam Vital Signs: Vital Signs Temp Pulse Pulse Resp BP BP Pulse Ox 08/21/20 09:41 73 137/65 08/21/20 05:00 98 F 68 24 H 129/82 97 08/21/20 02:38 98 F 62 24 H 125/60 97 - Problem List & Annotations (1) COPD exacerbation SNOMED Code(s): 858154060 Code(s): J44.1 - CHRONIC OBSTRUCTIVE PULMONARY DISEASE W (ACUTE) EXACERBATION Status: Acute Current Visit: No (2) Pneumonia SNOMED Code(s): 854072192 Code(s): J18.9 - PNEUMONIA, UNSPECIFIED ORGANISM Status: Acute Current Visit: Yes Qualifiers: Pneumonia type: due to unspecified organism (3) Chronic pain SNOMED Code(s): 08065923 Code(s): G89.29 - OTHER CHRONIC PAIN Status: Chronic Current Visit: Yes (4) Anxiety SNOMED Code(s): 56287977 Code(s): F41.9 - ANXIETY DISORDER, UNSPECIFIED Status: Chronic Current Visit: Yes (5) COPD (chronic obstructive pulmonary disease) SNOMED Code(s): 78349218 Code(s): J44.9 - CHRONIC OBSTRUCTIVE PULMONARY DISEASE, UNSPECIFIED Status: Chronic Current Visit: Yes (6) Oxygen dependent SNOMED Code(s): 289964062739 Code(s): Z99.81 - DEPENDENCE ON SUPPLEMENTAL OXYGEN Status: Chronic Current Visit: Yes (7) GERD (gastroesophageal reflux disease) SNOMED Code(s): 012599500 Code(s): K21.9 - GASTRO-ESOPHAGEAL REFLUX DISEASE WITHOUT ESOPHAGITIS Status: Chronic Current Visit: Yes (8) Hx of myocardial infarction SNOMED Code(s): 702842408 Code(s): I25.2 - OLD MYOCARDIAL INFARCTION Status: Chronic Current Visit: Yes (9) Degenerative disc disease SNOMED Code(s): 71792310 Code(s): LOE9072 - Status: Chronic Current Visit: Yes (10) CAD (coronary artery disease) SNOMED Code(s): 59522436 Code(s): I25.10 - ATHSCL HEART DISEASE OF [place] CORONARY ARTERY W/O ANG PCTRS Status: Chronic Current Visit: No (11) Diabetes SNOMED Code(s): 87871677 Code(s): E11.9 - TYPE 2 DIABETES MELLITUS WITHOUT COMPLICATIONS Status: Chronic Current Visit: No Qualifiers: Diabetes mellitus type: type 2 (12) HLD (hyperlipidemia) SNOMED Code(s): 57133227 Code(s): E78.5 - HYPERLIPIDEMIA, UNSPECIFIED Status: Chronic Current Visit: No (13) HTN (hypertension) SNOMED Code(s): 28273370 Code(s): I10 - ESSENTIAL (PRIMARY) HYPERTENSION Status: Chronic Current Visit: No (14) Atrial fibrillation SNOMED Code(s): 75596604 Code(s): I48.91 - UNSPECIFIED ATRIAL FIBRILLATION Status: Acute Current Visit: Yes (15) V-tach SNOMED Code(s): 79228110, 06326874 Code(s): I47.2 - VENTRICULAR TACHYCARDIA Status: Acute Current Visit: Yes - Problem List Review Problem List Initiated/Reviewed/Updated: Yes - My Orders Last 24 Hours: My Active Orders 08/21/20 10:56 PT Evaluation and Treatment [CONS] Routine - Plan Plan:: This 80 year old male admitted with acute on chronic hypercapnic/hypoxic respiratory failure, CAP, and COPD exacerbation 1. COPD Exacerbation and CAP - IV levaquin 750mg daily, change to PO -Solumedrol 40mg daily, change to PO today - scheduled Ipratropium and symbicort. - Continue using BiPap at night only - Incentive Spirometry, Chest PT - Dyspnea at baseline. and back to baseline oxygen requirement 2. A-Fib. VTACH - Start Amiodarone 100 mg PO and Diltiazem - continue Metoprolol 100mg BID - Lovenox BID, will stop and switch to Eliquis po - Spoke with Dr Duncan, reviewing records and he will get back to us with recommendations 3. CHF- stable - Continue Lasix, Metoprolol, Spironolactone - Strict I/O Daily weights, low Na diet - Last EF was preserved with pseudonormal diastolic function 4. HTN- - Metoprolol - Amlodipine on hold currently 5. Diabetes - Stable, BS improving with decrease in steroids - Insulin sliding scale - Diabetic Diet VTE prophylaxis: Lovenox, switch to Eliquis Dispo: 1-2 days Discussed care with daughter today, would like to see what Dr Duncan recommends. She plans on taking her father home and then moving to [place]. She was given option of Hospice/ palliative care, which she did not want to hear much about. Today Omer did mention he wanted to go home and "slip away" He has had it with testing and hospital stay. We discussed Hospice with him at this time and he didn't have much to say. We urged him to speak with family and come up with a decision and goals of treatment. Code Status: DNR/DNI
[2020-08-21] MEDS: Levofloxacin/Dextrose 5%-Water 750 MG in Premix Bag 1 BAG IV SCH (11:44)
[2020-08-21] MEDS: Tiotropium Bromide [Spiriva Respimat] 2.5 MCG INH SCH (11:48)
[2020-08-21] MEDS: Acetaminophen 325 MG Tab PO PRN ×2 (16:33→21:38)
[2020-08-21] MEDS ORDERED: Albuterol/Ipratropium 3.0-0.5 MG/3 ML Neb Soln NEB PRN (17:32)
[2020-08-21] MEDS ORDERED: Rosuvastatin 10 MG Tab PO SCH (21:00)
[2020-08-21] MEDS: Amitriptyline 25 MG Tab PO SCH (21:33)
[2020-08-21] MEDS: Apixaban 5 MG Tab PO SCH (21:36)
[2020-08-21] MEDS: Diltiazem 120 MG Cap.CD PO SCH (21:37)
[2020-08-22] MEDS: Acetaminophen/HYDROcodone 325-5 MG Tab PO PRN ×2 (03:46→11:54)
[2020-08-22 06:12] LABS: BLOOD UREA NITROGEN,BUN 37 mg/dL (7.0-18.0); CARBON DIOXIDE,CO2 34.8 mmol/L (21.0-32.0); CHLORIDE,CL 100 mmol/L (98-107); GLUCOSE RANDOM 221 mg/dL (74-106); POTASSIUM,K 3.7 mmol/L (3.5-5.1); SODIUM,NA 141 mmol/L (136-148)
[2020-08-22] MEDS: Pantoprazole 40 MG Tab.CR PO SCH ×2 (06:34→08:16)
[2020-08-22] MEDS ORDERED: predniSONE 20 MG Tab PO SCH (08:00)
[2020-08-22] MEDS: Insulin Aspart 100 Units/ML 3 ML Pen SUBCUT SCH ×2 (08:23→12:29)
[2020-08-22] MEDS: Amiodarone 200 MG Tab PO SCH (08:29)
[2020-08-22] MEDS: Aspirin 81 MG Tab.EC PO SCH (08:33)
[2020-08-22] MEDS: Clopidogrel 75 MG Tab PO SCH (08:34)
[2020-08-22] MEDS: Citalopram 20 MG Tab PO SCH (08:35)
[2020-08-22] MEDS: Spironolactone 25 MG Tab PO SCH (08:36)
[2020-08-22] MEDS: Apixaban 5 MG Tab PO SCH (08:37)
[2020-08-22] MEDS: Polyethylene Glycol 3350 Powder 17 GM Packet PO SCH ×2 (08:38→08:41)
[2020-08-22] MEDS: Metoprolol Tartrate 50 MG Tab PO SCH (08:38)
[2020-08-22] MEDS: Furosemide 40 MG Tab PO SCH (08:38)
[2020-08-22] MEDS: Budesonide/Formoterol 160-4.5 MCG/Puff 6 GM Inhaler INH SCH (08:40)
[2020-08-22] MEDS ORDERED: Levofloxacin 250 MG Tab PO SCH (09:00)
[2020-08-22] MEDS: Acetaminophen 325 MG Tab PO PRN (09:59)
[2020-08-22] MEDS: Tiotropium Bromide [Spiriva Respimat] 2.5 MCG INH SCH (10:29)
--- NOTE | 2020-08-22 11:26 | PCM.DCSUM1 ---
Discharge Summary - Hospital Course Brief History: 80 yr old male admitted for suspected pneumonia and COPD exacerbation. Patient presented overnight to the ED due to dizziness and hypoxia. Patient states that he tried to increase his home baseline O2 from 2.5L to 5L in preparation to get up from his chair and use the bathroom. Patient was not able to walk to the bathroom because he became dizzy and fell. Fall was witnessed by family members. Patient did not hit his head and states that he does not have any pain. Patient on admission states SOB and orthopnea. Denies chest pain, fever or chills. Patient has PMH of CHF, COPD, asthma, HTN, Diabetes, NC, Stent Placements Diagnosis: Stroke: No - Discharge Data Discharge Date: 08/22/20 Discharge Disposition: Home, W Home Health Agency 06 Condition: Good - Referral to Home Health Date of Face to Face Encounter: 08/22/20 Reason for Homebound Status: Omer is homebound, unable to drive to go to appointments. He relies on caregiver for transport and assistance with ambulation. He uses wheelchairs and walker at home. gait remains unsteady. Primary Care Physician: PCP None Skilled Need: Omer is in need of [place] [facility] care to monitor blood pressure and HR at home with new medications changes. he should be monitored for weight gain and peripheral edema as well as shortness of breath related to CHF exacerbation and COPD. PT and OT to evaluate and treat due to unsteady gait and deconditioning after hospitalization and acute illness. OT to help with home safety evaluation as well and ability to complete ADLs - Discharge Diagnosis/Problem(s) (1) COPD exacerbation SNOMED Code(s): 797337632 ICD Code: J44.1 - CHRONIC OBSTRUCTIVE PULMONARY DISEASE W (ACUTE) EXACERBATION Status: Acute (2) Pneumonia SNOMED Code(s): 298250046 ICD Code: J18.9 - PNEUMONIA, UNSPECIFIED ORGANISM Status: Acute Qualifiers: Pneumonia type: due to unspecified organism (3) Chronic pain SNOMED Code(s): 49232630 ICD Code: G89.29 - OTHER CHRONIC PAIN Status: Chronic (4) Anxiety SNOMED Code(s): 89205263 ICD Code: F41.9 - ANXIETY DISORDER, UNSPECIFIED Status: Chronic (5) COPD (chronic obstructive pulmonary disease) SNOMED Code(s): 26294596 ICD Code: J44.9 - CHRONIC OBSTRUCTIVE PULMONARY DISEASE, UNSPECIFIED Status: Chronic (6) Oxygen dependent SNOMED Code(s): 898048267466 ICD Code: Z99.81 - DEPENDENCE ON SUPPLEMENTAL OXYGEN Status: Chronic (7) GERD (gastroesophageal reflux disease) SNOMED Code(s): 638895384 ICD Code: K21.9 - GASTRO-ESOPHAGEAL REFLUX DISEASE WITHOUT ESOPHAGITIS Status: Chronic (8) Hx of myocardial infarction SNOMED Code(s): 894513489 ICD Code: I25.2 - OLD MYOCARDIAL INFARCTION Status: Chronic (9) Degenerative disc disease SNOMED Code(s): 18989235 ICD Code: NID9143 - Status: Chronic (10) CAD (coronary artery disease) SNOMED Code(s): 20184700 ICD Code: I25.10 - ATHSCL HEART DISEASE OF [place] CORONARY ARTERY W/O ANG PCTRS Status: Chronic (11) Diabetes SNOMED Code(s): 24898165 ICD Code: E11.9 - TYPE 2 DIABETES MELLITUS WITHOUT COMPLICATIONS Status: Chronic Qualifiers: Diabetes mellitus type: type 2 (12) HLD (hyperlipidemia) SNOMED Code(s): 34983506 ICD Code: E78.5 - HYPERLIPIDEMIA, UNSPECIFIED Status: Chronic (13) HTN (hypertension) SNOMED Code(s): 56256045 ICD Code: I10 - ESSENTIAL (PRIMARY) HYPERTENSION Status: Chronic (14) Atrial fibrillation SNOMED Code(s): 69807616 ICD Code: I48.91 - UNSPECIFIED ATRIAL FIBRILLATION Status: Acute (15) V-tach SNOMED Code(s): 87278649, 26950266 ICD Code: I47.2 - VENTRICULAR TACHYCARDIA Status: Acute - Patient Summary/Data Consults: Consultations 08/21/20 10:56 PT Evaluation and Treatment [CONS] Routine Hospital Course: Admitting Diagnose: Acute on chronic hypercapnic/hypoxic respiratory failure COPD exacerbation CAP Discharge Diagnoses: Acute on chronic hypercapnic/hypoxic respiratory failure- resolved COPD exacerbation- resolved CAP- fully treated Afib, new onset Other PMH: Chronic pain Anxiety Oxygen dependent GERD COPD CHF Hx NC with PCI Degenerative disc disease DM Type 2 HLD HTN Omer was admitted due to dizziness and hypoxia. He was noting an increase in oxygen needs at home along with dizziness on ambulation and a fall at home. He was treated with Azithromycin and Rocephin for CAP and placed on steroids and bipap for COPD exacerbation. He slowly improved during his stay. He was noted to go into SVT, Vtach and afib intermittently. Metoprolol was increased initially to 100 mg BID, which helped very little. Diltiazem 120 CD was added as well. Dr Duncan, cardiology, knows of patient thoroughly and recommended Amiodarone, loading dosage 400 mg BID for 2 weeks and 200 mg BID for 2 weeks. He agreed with blood thinner, Laura for stroke prevention. I discussed this with patient and daughter as well. They understood risks and benefits. Vtach was SVT with abberancy and atrial fibrillation was correct. ECHO pending. With increase in Amiodarone, HR improved and patient no longer felt dizziness with movement. BP remained stable. Today he is very eager to be discharged home. He is on home baseline oxygen and doing well. He has declined full PT evaluation, but is ok with Home Health referral. For discharge, Metoprolol will remain at 100 mg BID, Diltiazem 120 mg daily and Amiodarone loading as above ordered. He is to STOP Plavix. I explained this to his daughter as well, this is under the direction of Dr Duncan as he has had stent for over 1 year. He is to follow up with PCP as well as Dr Duncan as an outpatient. He was fully treated for pneumonia, he will continue taper of Prednisone. I will provide Protonix x 1 month due to long taper of steroids. He is to return to ED or clinic sooner if concerns should arise. - Patient Instructions Diet: Heart Healthy Diet, Diabetic Diet Fluid Restriction: 2000 mL Activity: As Tolerated, No Strenuous Activities Driving: Do Not Drive Showering/Bathing: May Shower Notify Provider of: Fever, Increased Pain, Swelling and Redness, Drainage, Nausea and/or Vomiting Other/Special Instructions: Daily weights. Monitor blood pressure and heart rate. Be sure not to move to quickly, take your time with position changes. - Discharge Plan *PRESCRIPTION DRUG MONITORING PROGRAM REVIEWED*: Not Applicable *COPY OF PRESCRIPTION DRUG MONITORING REPORT IN PATIENT MARK: Not Applicable Prescriptions/Med Rec: Diltiazem [Cardizem CD] 120 mg PO DAILY #30 cap.cd Amiodarone [Cordarone] 200 - 400 mg PO BID #84 tablet Apixaban [Eliquis] 5 mg PO BID #60 tablet Metoprolol Tartrate 100 mg PO BID #60 tablet predniSONE 10 - 30 mg PO WITHBREAKFAST #18 tablet Pantoprazole Sodium [Protonix] 40 mg PO DAILY #30 tablet. Home Medications: Home Meds Albuterol Sulfate [Albuterol Sulfate Hfa] 2 inh IH Q6H PRN 10/13/19 [History] Albuterol/Ipratropium [DuoNeb 3.0-0.5 MG/3 ML] 3 ml NEB Q6H 10/13/19 [History] Aspirin [Ecotrin EC] 81 mg PO DAILY 10/13/19 [History] Budesonide/Formoterol Fumarate [Symbicort 160-4.5 Mcg Inhaler] 2 inh IH Q12H 10/13/19 [History] Citalopram [Citalopram HBr] 10 mg PO DAILY 10/13/19 [History] Diclofenac Sodium [Voltaren 1% Gel] 4 gm TOP QID PRN MDD total body dose 32gm max 10/13/19 [History] Hydrocodone/Acetaminophen [[place] 10-325 Tablet] 10 - 325 mg PO TID PRN 10/13/19 [History] Insulin Aspart [NovoLOG] 15 unit SUBCUT TIDMEALS 10/13/19 [History] Lidocaine 5% [Lidoderm 5%] 2 patch TD .ON 12 HR, OFF 12 HR 10/13/19 [History] [place]-3/DHA/Epa/Fish Oil [Fish Oil 1,000 mg Softgel] 1,000 mg PO BID 10/13/19 [History] Pantoprazole [ProTONIX] 40 mg PO ACBREAKFAST 10/13/19 [History] Rosuvastatin Calcium [Crestor] 40 mg PO BEDTIME 10/13/19 [History] Spironolactone [Aldactone] 50 mg PO DAILY 10/13/19 [History] metFORMIN HCl [Metformin HCl ER] 1,000 mg PO BID 10/13/19 [History] polyethylene glycoL 3350 [MiraLAX] 17 gm PO DAILY 10/13/19 [History] Furosemide 40 mg PO DAILY 12/30/19 [History] Gabapentin [Neurontin] 600 mg PO BID 12/30/19 [History] Alogliptin Benzoate [Alogliptin] 25 mg PO DAILY 01/27/20 [History] Meloxicam 15 mg PO WITHBREAKFAST 01/27/20 [History] Gabapentin [Neurontin] 300 mg PO 1200,1800 01/31/20 [History] Insulin Glarg,Human.Rec.Analog [Lantus Solostar] 30 unit SUBCUT BID #1 box 03/03/20 [Rx] Amitriptyline [Elavil] 25 mg PO BEDTIME 08/15/20 [History] Azithromycin [Zithromax] 250 mg PO MOWEFR 08/15/20 [History] Tiotropium Merino [Spiriva Respimat] 2.5 mcg INH Q24H 08/15/20 [History] methocarbamoL [Methocarbamol] 750 mg PO TID PRN 08/15/20 [History] Amiodarone [Cordarone] 200 - 400 mg PO BID #84 tablet 08/22/20 [Rx] Apixaban [Eliquis] 5 mg PO BID #60 tablet 08/22/20 [Rx] Diltiazem [Cardizem CD] 120 mg PO DAILY #30 cap.cd 08/22/20 [Rx] Metoprolol Tartrate 100 mg PO BID #60 tablet 08/22/20 [Rx] Pantoprazole Sodium [Protonix] 40 mg PO DAILY #30 tablet. 08/22/20 [Rx] predniSONE 10 - 30 mg PO WITHBREAKFAST #18 tablet 08/22/20 [Rx] Oxygen Therapy Mode: Room Air Patient Handouts: Amiodarone tablets, Metoprolol tablets, Pantoprazole tablets, Prednisone tablets, Diltiazem tablets, Apixaban oral tablets, Community- Acquired Pneumonia, [facility] - 08/31/20 2:00 pm Kevin Duncan MD [Physician] - 09/07/20 3:00 pm (Please arrive 15 minutes early with your identification, insurance cards and your own facemask.) - Discharge Summary/Plan Comment DC Time >30 min.: Yes (Discussion with daughter and setting up Home Health) - Patient Data Vitals - Most Recent: Last Vital Signs Temp 96.3 F L 08/22/20 08:00 Pulse 79 08/22/20 08:38 Resp 18 08/22/20 08:00 BP 155/70 H 08/22/20 08:38 Pulse Ox 99 08/22/20 09:04 Weight - Most Recent: 99.507 kg I&O - Last 24 hours: Intake & Output 08/21/20 08/22/20 08/22/20 22:59 06:59 14:59 Intake Total 200 500 Output Total 600 650 Balance -400 -150 Lab Results - Last 24 hrs: Laboratory Results - last 24 hr 08/21/20 08/21/20 08/21/20 Range/Units 08:01 12:04 18:10 WBC (4.0-11.0) K/uL RBC (4.50-5.90) M/uL Hgb (13.0-17.0) g/dL Hct (38.0-50.0) % MCV (80.0-98.0) fL MCH (27.0-32.0) pg MCHC (31.0-37.0) g/dL RDW Std Deviation (28.0-62.0) fl RDW Coeff of Rocco (11.0-15.0) % Plt Count (150-400) K/uL MPV (7.40-12.00) fL Neut % (Auto) (48.0-80.0) % Lymph % (Auto) (16.0-40.0) % [place] % (Auto) (0.0-15.0) % Eos % (Auto) (0.0-7.0) % Baso % (Auto) (0.0-1.5) % Neut # (Auto) (1.4-5.7) K/uL Lymph # (Auto) (0.6-2.4) K/uL [place] # (Auto) (0.0-0.8) K/uL Eos # (Auto) (0.0-0.7) K/uL Baso # (Auto) (0.0-0.1) K/uL Nucleated RBC % /100WBC Nucleated RBCs # K/uL Sodium (136-148) mmol/L Potassium (3.5-5.1) mmol/L Chloride (98-107) mmol/L Carbon Dioxide (21.0-32.0) mmol/L BUN (7.0-18.0) mg/dL Creatinine (0.8-1.3) mg/dL Est Cr Clr Drug Dosing mL/min Estimated GFR (MDRD) ml/min Glucose (74-106) mg/dL POC Glucose 245 H 259 H 320 H (60-110) mg/dL Calcium (8.5-10.1) mg/dL Magnesium (1.8-2.4) mg/dL 08/22/20 08/22/20 08/22/20 Range/Units 05:25 05:25 06:33 WBC 9.24 (4.0-11.0) K/uL RBC 4.18 L (4.50-5.90) M/uL Hgb 11.8 L (13.0-17.0) g/dL Hct 38.2 (38.0-50.0) % MCV 91.4 (80.0-98.0) fL MCH 28.2 (27.0-32.0) pg MCHC 30.9 L (31.0-37.0) g/dL RDW Std Deviation 49.7 (28.0-62.0) fl RDW Coeff of [place]occo 15 (11.0-15.0) % Plt Count 289 (150-400) K/uL MPV 9.90 (7.40-12.00) fL Neut % (Auto) 75.1 (48.0-80.0) % Lymph % (Auto) 16.7 (16.0-40.0) % [place] % (Auto) 7.8 (0.0-15.0) % Eos % (Auto) 0.4 (0.0-7.0) % Baso % (Auto) 0.0 (0.0-1.5) % Neut # (Auto) 6.9 H (1.4-5.7) K/uL Lymph # (Auto) 1.5 (0.6-2.4) K/uL [place] # (Auto) 0.7 (0.0-0.8) K/uL Eos # (Auto) 0.0 (0.0-0.7) K/uL Baso # (Auto) 0.0 (0.0-0.1) K/uL Nucleated RBC % 0.0 /100WBC Nucleated RBCs # 0 K/uL Sodium 141 (136-148) mmol/L Potassium 3.7 (3.5-5.1) mmol/L Chloride 100 (98-107) mmol/L Carbon Dioxide 34.8 H (21.0-32.0) mmol/L BUN 37 H (7.0-18.0) mg/dL Creatinine 1.1 (0.8-1.3) mg/dL Est Cr Clr Drug Dosing 59.77 mL/min Estimated GFR (MDRD) > 60.0 ml/min Glucose 221 H (74-106) mg/dL POC Glucose 182 H (60-110) mg/dL Calcium 8.8 (8.5-10.1) mg/dL Magnesium 1.9 (1.8-2.4) mg/dL CHARLENE Results - Last 24 hrs: Microbiology 08/17/20 13:56 Aerobic Blood Culture - Preliminary Blood - Venous - Lab Draw NO GROWTH AFTER 4 DAYS Anaerobic Blood Culture - Preliminary NO GROWTH AFTER 4 DAYS 08/17/20 13:50 Aerobic Blood Culture - Preliminary Blood - Venous NO GROWTH AFTER 4 DAYS Anaerobic Blood Culture - Preliminary NO GROWTH AFTER 4 DAYS 08/15/20 01:53 Aerobic Blood Culture - Final Blood - Venous Anaerobic Blood Culture - Preliminary Med Orders - Current: Current Medications Acetaminophen (Tylenol) 650 mg PO Q4H PRN PRN Reason: Pain Last Admin: 08/22/20 09:59 Dose: 650 mg Documented by: Hydrocodone Bitart/Acetaminophen ([place] 325-5 Mg) 1 tab PO Q8H PRN PRN Reason: Pain (severe 7-10) Last Admin: 08/22/20 03:46 Dose: 1 tab Documented by: Albuterol/Ipratropium (Duoneb 3.0-0.5 Mg/3 Ml) 3 ml NEB Q4HRRT PRN PRN Reason: Shortness of Breath Amiodarone HCl (Cordarone) 400 mg PO BID [facility] Last Admin: 08/22/20 08:29 Dose: 400 mg Documented by: Amitriptyline HCl (Elavil) 25 mg PO BEDTIME [facility] Last Admin: 08/21/20 21:33 Dose: 25 mg Documented by: Apixaban (Eliquis) 5 mg PO BID [facility] Last Admin: 08/22/20 08:37 Dose: 5 mg Documented by: Aspirin (Halfprin) 81 mg PO DAILY [facility] Last Admin: 08/22/20 08:33 Dose: 81 mg Documented by: Budesonide/Formoterol Fumarate (Symbicort 160-4.5 Mcg) 0 gm INH BID [facility] Last Admin: 08/22/20 08:40 Dose: 1 puff Documented by: Citalopram Hydrobromide (Celexa) 10 mg PO DAILY [facility] Last Admin: 08/22/20 08:35 Dose: 10 mg Documented by: Diltiazem HCl (Diltiazem) 20 mg IVPUSH Q2H PRN PRN Reason: Tachycardia Last Admin: 08/19/20 20:45 Dose: 20 mg Documented by: Diltiazem HCl (Cardizem Cd) 120 mg PO BEDTIME [facility] Last Admin: 08/21/20 21:37 Dose: 120 mg Documented by: Furosemide (Lasix) 40 mg PO DAILY [facility] Last Admin: 08/22/20 08:38 Dose: 40 mg Documented by: Insulin Aspart (Novolog) 0 unit SUBCUT TIDAC [facility]; Protocol Last Admin: 08/22/20 08:23 Dose: 3 units Documented by: Levofloxacin (Levaquin) 750 mg PO DAILY [facility] Stop: 08/23/20 09:01 Last Admin: 08/22/20 08:31 Dose: 750 mg Documented by: Lidocaine (Lidoderm 5%) 1,400 mg TRDERM BEDTIME [facility] Last Admin: 08/21/20 21:41 Dose: 1,400 mg Documented by: Metoprolol Tartrate (Lopressor) 100 mg PO BID [facility] Last Admin: 08/22/20 08:38 Dose: 100 mg Documented by: Miscellaneous Information (Remove Patch) 1 ea TRDERM DAILY [facility] Last Admin: 08/22/20 08:38 Dose: 1 ea Documented by: Ondansetron HCl (Zofran) 4 mg IVPUSH Q4H PRN PRN Reason: Nausea/Vomiting Last Admin: 08/15/20 13:27 Dose: 4 mg Documented by: Pantoprazole Sodium (Protonix) 40 mg PO ACBREAKFAST [facility] Last Admin: 08/22/20 08:16 Dose: 40 mg Documented by: Tiotropium Merino [ Spiriva Respimat] 2. 5 Mcg 1 each INH Q24H [facility] Last Admin: 08/22/20 10:29 Dose: Not Given Documented by: Methocarbamol 750 Mg (Tab) 1 each PO TID PRN PRN Reason: muscle spasms Polyethylene Glycol (Miralax) 17 gm PO DAILY [facility] Last Admin: 08/22/20 08:41 Dose: Not Given Documented by: Prednisone (Prednisone) 40 mg PO WITHBREAKFAST [facility] Last Admin: 08/22/20 08:34 Dose: 40 mg Documented by: Rosuvastatin Calcium (Crestor) 40 mg PO BEDTIME [facility] Last Admin: 08/21/20 21:34 Dose: 40 mg Documented by: Sodium Chloride (Saline Flush) 10 ml FLUSH ASDIRECTED PRN PRN Reason: Keep Vein Open Sodium Chloride (Saline Flush) 2.5 ml FLUSH ASDIRECTED PRN PRN Reason: Keep Vein Open Spironolactone (Aldactone) 50 mg PO DAILY [facility] Last Admin: 08/22/20 08:36 Dose: 50 mg Documented by: Discontinued Medications Albuterol/Ipratropium (Duoneb 3.0-0.5 Mg/3 Ml) 3 ml NEB Q4HRRT [facility] Last Admin: 08/18/20 17:54 Dose: 3 ml Documented by: Amiodarone HCl (Cordarone) 100 mg PO DAILY [facility] Last Admin: 08/21/20 10:08 Dose: 100 mg Documented by: Clopidogrel Bisulfate (Plavix) 75 mg PO DAILY [facility] Last Admin: 08/22/20 08:34 Dose: 75 mg Documented by: Diltiazem HCl (Diltiazem) 20 mg IVPUSH ONETIME ONE Stop: 08/17/20 03:23 Last Admin: 08/17/20 03:33 Dose: 20 mg Documented by: Enoxaparin Sodium (Lovenox) 40 mg SUBCUT Q24H [facility] Last Admin: 08/20/20 14:17 Dose: 40 mg Documented by: Enoxaparin Sodium (Lovenox) 100 mg SUBCUT BID [facility] Last Admin: 08/21/20 10:08 Dose: 100 mg Documented by: Furosemide (Lasix) 40 mg PO DAILY [facility] Furosemide (Lasix) 20 mg IVPUSH NOW ONE Stop: 08/19/20 13:05 Last Admin: 08/19/20 13:57 Dose: 20 mg Documented by: Azithromycin 500 mg/ Sodium (Chloride) 250 mls @ 250 mls/hr IV ONETIME ONE Stop: 08/15/20 02:45 Last Admin: 08/15/20 02:15 Dose: 250 mls/hr Documented by: Ceftriaxone Sodium/Dextrose 2 (gm/ Premix) 50 mls @ 100 mls/hr IV ONETIME ONE Stop: 08/15/20 02:15 Last Admin: 08/15/20 01:57 Dose: 100 mls/hr Documented by: Ceftriaxone Sodium/Dextrose 1 (gm/ Premix) 50 mls @ 100 mls/hr IV Q24H [facility] Last Admin: 08/20/20 01:16 Dose: 100 mls/hr Documented by: Azithromycin 500 mg/ Sodium (Chloride) 250 mls @ 250 mls/hr IV Q24H [facility] Last Admin: 08/20/20 03:24 Dose: 250 mls/hr Documented by: Vancomycin HCl 1.5 gm/ Premix 300 mls @ 300 mls/hr IV ONETIME ONE Stop: 08/16/20 03:29 Last Admin: 08/16/20 03:38 Dose: 300 mls/hr Documented by: Vancomycin HCl 1.5 gm/ Premix 300 mls @ 300 mls/hr IV Q24H [facility] Last Admin: 08/18/20 20:40 Dose: 300 mls/hr Documented by: Amiodarone HCl 300 mg/ (Dextrose/Water) 106 mls @ 300 mls/hr IV .BOLUS ONE Stop: 08/19/20 04:08 Levofloxacin/Dextrose 750 mg/ (Premix) 150 mls @ 100 mls/hr IV Q24H [facility] Last Admin: 08/21/20 11:44 Dose: 100 mls/hr Documented by: Insulin Aspart (Novolog) 0 unit SUBCUT TIDAC [facility]; Protocol Last Admin: 08/16/20 12:20 Dose: 4 unit Documented by: Insulin Aspart (Novolog) 12 unit SUBCUT NOW STA Stop: 08/16/20 16:37 Last Admin: 08/16/20 17:37 Dose: 12 units Documented by: Insulin Aspart (Novolog) 7 unit SUBCUT NOW STA Stop: 08/17/20 08:03 Last Admin: 08/17/20 08:23 Dose: 7 units Documented by: Ipratropium Merino (Atrovent) 0.5 mg NEB Q6HRRT [facility] Last Admin: 08/21/20 17:21 Dose: 0.5 mg Documented by: Ketorolac Tromethamine (Toradol) 15 mg IVPUSH Q6H PRN PRN Reason: Pain Stop: 08/20/20 19:33 Last Admin: 08/19/20 19:49 Dose: 15 mg Documented by: Lorazepam (Ativan) 0.5 mg IVPUSH ONETIME ONE Stop: 08/19/20 11:58 Last Admin: 08/19/20 12:31 Dose: 0.5 mg Documented by: Methocarbamol (Methocarbamol) 750 mg PO TID PRN PRN Reason: muscle spasms Methylprednisolone Sodium Succinate (Solu-Medrol) 125 mg IV Q12H [facility] Last Admin: 08/17/20 10:20 Dose: 125 mg Documented by: Methylprednisolone Sodium Succinate (Solu-Medrol) 40 mg IV Q8H [facility] Last Admin: 08/18/20 04:40 Dose: 40 mg Documented by: Methylprednisolone Sodium Succinate (Solu-Medrol) 40 mg IV Q12H [facility] Last Admin: 08/20/20 01:13 Dose: 40 mg Documented by: Methylprednisolone Sodium Succinate (Solu-Medrol) 40 mg IV DAILY [facility] Last Admin: 08/21/20 09:34 Dose: 40 mg Documented by: Metoprolol Succinate (Toprol Xl) 50 mg PO ONETIME ONE Stop: 08/18/20 10:48 Last Admin: 08/18/20 11:24 Dose: 50 mg Documented by: Metoprolol Tartrate (Lopressor) 50 mg PO BID [facility] Last Admin: 08/18/20 08:53 Dose: 50 mg Documented by: Budesonide/Formoterol 160-4.5 Mcg/Puff 6 Gm Inhaler 2 each INH BID [facility] Last Admin: 08/21/20 10:11 Dose: Not Given Documented by: Vancomycin HCl (Pharmacy To Dose - Vancomycin) 1 dose .XX ASDIRECTED [facility]
--- NOTE | 2020-08-24 11:02 | ECHO ---
EXAM DATE: 08/15/20 PATIENT'S AGE: 80 The ECHO report has been scanned into [employer] and can be seen in this patient's EMR (Electronic Medical Record) under the REPORTS section. The report has also been scanned into PACS. [facility]
== END 2020-08-22 13:00 | disposition home health service (06) | DRG 189 ==
LOC: MW.ED 00:31 → MW.MS 01:59 → OBSVTOIN 10:03 → MW.MS 08-16 12:59
PROVIDERS: ADMIT Internal Medicine; ATTEND Internal Medicine
PROC: 5A09457 Assistance with Respiratory Ventilation, 24-96 Consecutive Hours, Continuous Positive Airway Pressure (ICD-10-PCS; principal; 2020-08-15)
DX: J96.21 Acute and chronic respiratory failure with hypoxia (principal); H54.7 Unspecified visual loss; H91.93 Unspecified hearing loss, bilateral; J18.9 Pneumonia, unspecified organism; J44.1 Chronic obstructive pulmonary disease with (acute) exacerbation; I50.9 Heart failure, unspecified; I47.2 Ventricular tachycardia; J44.0 Chronic obstructive pulmonary disease with (acute) lower respiratory infection; E78.00 Pure hypercholesterolemia, unspecified; I50.32 Chronic diastolic (congestive) heart failure; Z66 Do not resuscitate; J96.22 Acute and chronic respiratory failure with hypercapnia; I11.0 Hypertensive heart disease with heart failure; E11.9 Type 2 diabetes mellitus without complications; G89.29 Other chronic pain; F41.9 Anxiety disorder, unspecified; F32.9 Major depressive disorder, single episode, unspecified; K21.9 Gastro-esophageal reflux disease without esophagitis; I25.10 Atherosclerotic heart disease of native coronary artery without angina pectoris; F43.10 Post-traumatic stress disorder, unspecified; Z79.02 Long term (current) use of antithrombotics/antiplatelets; E78.5 Hyperlipidemia, unspecified; Z79.4 Long term (current) use of insulin; I48.91 Unspecified atrial fibrillation; Z79.51 Long term (current) use of inhaled steroids; M51.35 Other intervertebral disc degeneration, thoracolumbar region; Z79.899 Other long term (current) drug therapy; M19.90 Unspecified osteoarthritis, unspecified site; M54.9 Dorsalgia, unspecified; K57.90 Diverticulosis of intestine, part unspecified, without perforation or abscess without bleeding; I25.2 Old myocardial infarction; Z95.5 Presence of coronary angioplasty implant and graft; Z99.81 Dependence on supplemental oxygen; Z79.52 Long term (current) use of systemic steroids; Z79.84 Long term (current) use of oral hypoglycemic drugs; Z79.82 Long term (current) use of aspirin; Z97.4 Presence of external hearing-aid; Z87.891 Personal history of nicotine dependence; W19.XXXA Unspecified fall, initial encounter; Z20.828 Contact with and (suspected) exposure to other viral communicable diseases
CPT/HCPCS: 36415; 71045; 80053 ×2; 83605; 83880; 84484; 85025 ×2; 87040 ×2; 87635; 93005; 94640; 99285; J0456; J0696; J7050; 36600; 80048; 80202; 82803; 82962; 83735; 84100; 93306; 93922; 93922-26; 93926; 93926-26; 94660; 96365; 96367; 96372; 96375; 96376; 97110-GP; 97161-GP; 99283; A9270-GY; G0378; J1650; J1815-GY; J1885; J1956; J2060; J2405; J2920; J2930; J3370; J3490; J7620-GY; U0002

== ENCOUNTER 2020-10-11 10:47 | Emergency (ER) | payer OTHER, MEDICARE ==
[2020-10-11] MEDS ORDERED: Sodium Chloride 0.9% 2.5 ML Syringe FLUSH PRN (10:54)
[2020-10-11] MEDS ORDERED: Sodium Chloride 0.9% 10 ML Syringe FLUSH PRN (10:54)
--- NOTE | 2020-10-11 11:19 | EDM.PDOC ---
ED HPI GENERAL MEDICAL PROBLEM - General Chief Complaint: Respiratory Problem Stated Complaint: EMS ARRIVAL Time Seen by Provider: 10/11/20 10:48 Source of Information: Reports: EMS History Limitations: Reports: Altered Mental Status - History of Present Illness INITIAL COMMENTS - FREE TEXT/NARRATIVE: 80-year-old male past medical history COPD on 2.5 L home O2, CAD, hypertension, hyperlipidemia, diabetes, A. fib on Eliquis presents for shortness of breath and lethargy. Patient will shake his head yes or no to some questions, but is not conversational. History primarily from EMS. Patient does have family members who were tested positive for Covid. - Related Data Allergies Allergy/AdvReac Type Severity Reaction Status Date / Time atorvastatin Allergy Other Verified 10/11/20 11:04 bupropion [From Wellbutrin] Allergy Other Verified 10/11/20 11:04 duloxetine HCl Allergy Rash Verified 10/11/20 11:04 [From Cymbalta] Iodinated Contrast Media Allergy Other Verified 10/11/20 11:04 meloxicam Allergy Other Verified 10/11/20 11:04 naproxen Allergy Other Verified 10/11/20 11:04 paroxetine Allergy Other Verified 10/11/20 11:04 sertraline HCl [From Zoloft] Allergy Rash Verified 10/11/20 11:04 venlafaxine [From Effexor] Allergy oth Verified 10/11/20 11:04 Home Meds: Home Meds Albuterol Sulfate [Albuterol Sulfate Hfa] 2 inh IH Q6H PRN 10/13/19 [History] Albuterol/Ipratropium [DuoNeb 3.0-0.5 MG/3 ML] 3 ml NEB Q6H PRN 10/13/19 [History] Aspirin [Ecotrin EC] 81 mg PO DAILY 10/13/19 [History] Budesonide/Formoterol Fumarate [Symbicort 160-4.5 Mcg Inhaler] 2 inh IH Q12H 10/13/19 [History] Citalopram [Citalopram HBr] 10 mg PO DAILY 10/13/19 [History] Diclofenac Sodium [Voltaren 1% Gel] 4 gm TOP QID PRN MDD total body dose 32gm max 10/13/19 [History] Hydrocodone/Acetaminophen [[place] 10-325 Tablet] 1 tab PO TID PRN 10/13/19 [History] Insulin Aspart [NovoLOG] 15 unit SUBCUT TIDMEALS 10/13/19 [History] Lidocaine 5% [Lidoderm 5%] 2 patch TD .ON 12 HR, OFF 12 HR 10/13/19 [History] [place]-3/DHA/Epa/Fish Oil [Fish Oil 1,000 mg Softgel] 1,000 mg PO BID 10/13/19 [History] Pantoprazole [ProTONIX] 40 mg PO ACBREAKFAST 10/13/19 [History] Rosuvastatin Calcium [Crestor] 40 mg PO BEDTIME 10/13/19 [History] Spironolactone [Aldactone] 50 mg PO DAILY 10/13/19 [History] metFORMIN HCl [Metformin HCl ER] 1,000 mg PO BID 10/13/19 [History] polyethylene glycoL 3350 [MiraLAX] 17 gm PO DAILY PRN 10/13/19 [History] Furosemide 40 mg PO DAILY 12/30/19 [History] Gabapentin [Neurontin] 600 mg PO QID 12/30/19 [History] Alogliptin Benzoate [Alogliptin] 25 mg PO DAILY 01/27/20 [History] Insulin Glarg,Human.Rec.Analog [Lantus Solostar] 30 unit SUBCUT BID #1 box 03/03/20 [Rx] Amitriptyline [Elavil] 25 mg PO BEDTIME 08/15/20 [History] Azithromycin [Zithromax] 250 mg PO MOWEFR 08/15/20 [History] Tiotropium [place] [Spiriva Respimat] 2 puff INH Q24H 08/15/20 [History] methocarbamoL [Methocarbamol] 750 mg PO TID PRN 08/15/20 [History] Apixaban [Eliquis] 5 mg PO BID #60 tablet 08/22/20 [Rx] Diltiazem [Cardizem CD] 120 mg PO DAILY #30 cap.cd 08/22/20 [Rx] Amiodarone [Cordarone] 200 mg PO BID 10/11/20 [History] Past Medical History HEENT History: Reports: None Other HEENT History: glasses and hearing aides Cardiovascular History: Reports: CAD, Heart Failure, High Cholesterol, Hypertension, [place], Stents Respiratory History: Reports: Asthma, COPD Other Respiratory History: states may need cpap but does not have one. Gastrointestinal History: Reports: Diverticulosis, Gastritis, GERD Genitourinary History: Reports: None Musculoskeletal History: Reports: Arthritis, Back Pain, Chronic Neurological History: Reports: None Psychiatric History: Reports: Anxiety, Depression, Panic Attack, PTSD Endocrine/Metabolic History: Reports: Diabetes, Type II Insulin Pump Model and Senior Planning Analyst: None Hematologic History: Reports: None Immunologic History: Reports: None Oncologic (Cancer) History: Reports: None Dermatologic History: Reports: None - Infectious Disease History Infectious Disease History: Reports: None - Past Surgical History Head Surgeries/Procedures: Reports: None HEENT Surgical History: Reports: None Cardiovascular Surgical History: Reports: Other (See Below) Other Cardiovascular Surgeries/Procedures: Respiratory Surgical History: Reports: None Other Respiratory Surgeries/Procedures: on 2L/min @ home GI Surgical History: Reports: Colonoscopy Male Surgical History: Reports: None Endocrine Surgical History: Reports: None Neurological Surgical History: Reports: None Musculoskeletal Surgical History: Reports: None Oncologic Surgical History: Reports: None Dermatological Surgical History: Reports: None Social & Family History - Family History Family Medical History: No Pertinent Family History - Tobacco Use Tobacco Use Status *Q: Unknown Ever Used Tobacco - Caffeine Use Caffeine Use: Reports: Coffee Caffeine Use Comment: pt is sleeping ED ROS GENERAL - Review of Systems Review Of Systems: Unable To Obtain Reason Not Obtained: clinical condition ED EXAM, GENERAL - Physical Exam Exam: See Below Exam Limited By: Altered Mental Status General Appearance: Other (arousable to verbal stimuli but only answering some questions yes/no, not verbal) Eye Exam: Bilateral Eye: PERRL Throat/Mouth: No Airway Compromise Head: Atraumatic, Normocephalic Neck: Normal Inspection Respiratory/Chest: No Accessory Muscle Use, Rhonchi, Wheezing Cardiovascular: Normal Peripheral Pulses, Regular Rate, Rhythm GI/Abdominal: Soft, Non-Tender Extremities: Normal Inspection Neurological: Alert Skin Exam: Warm, Dry, Intact, Normal Color #1 Interpretation EKG Date: 10/11/20 Time: 10:49 Rhythm: NSR Rate (Beats/Min): 77 [place]: Normal P-Wave: Present QRS: Normal ST-T: Normal QT: Normal OH/PQ Interval: 253 Comparison: NA - No Prior EKG EKG Interpretation Comments: no acute ischemic changes Course - Vital Signs Last Recorded V/S: Last Vital Signs Temp 98.5 F 10/11/20 13:08 Pulse 69 10/11/20 12:31 Resp 26 H 10/11/20 11:45 BP 112/59 L 10/11/20 12:31 Pulse Ox 96 10/11/20 12:31 - Orders/Labs/Meds Orders: Active Orders 24 hr Category Date Time Status BIPAP Adult [RT BiPAP/CPAP] [RC] ASDIRECTED Care 10/11/20 11:13 Active Cardiac Monitoring [RC] . DIRECTED Care 10/11/20 10:54 Active EKG Documentation Completion [RC] STAT Care 10/11/20 10:54 Active Pulse Oximetry [RC] ASDIRECTED Care 10/11/20 10:54 Active CORONAVIRUS COVID-19 PCR PHL Stat Lab 10/11/20 11:38 Received UA W/CHARLENE RFLX IF INDICATED [URIN] Stat Lab 10/11/20 11:00 Ordered Sodium Chloride 0.9% [Saline Flush] Med 10/11/20 10:54 Active 10 ml FLUSH ASDIRECTED PRN Sodium Chloride 0.9% [Saline Flush] Med 10/11/20 10:54 Active 2.5 ml FLUSH ASDIRECTED PRN Saline Lock Insert [OM.PC] Stat Oth 10/11/20 10:54 Ordered Medication Orders Sodium Chloride (Saline Flush) 10 ml FLUSH ASDIRECTED PRN PRN Reason: Keep Vein Open Sodium Chloride (Saline Flush) 2.5 ml FLUSH ASDIRECTED PRN PRN Reason: Keep Vein Open Labs: Laboratory Tests 10/11/20 10/11/20 10/11/20 Range/Units 10:51 10:51 10:51 WBC 10.18 (4.0-11.0) K/uL RBC 4.32 L (4.50-5.90) M/uL Hgb 12.5 L (13.0-17.0) g/dL Hct 42.4 (38.0-50.0) % MCV 98.1 H (80.0-98.0) fL MCH 28.9 (27.0-32.0) pg MCHC 29.5 L (31.0-37.0) g/dL RDW Std Deviation 58.4 (28.0-62.0) fl RDW Coeff of Rocco 16 H (11.0-15.0) % Plt Count 202 (150-400) K/uL MPV 10.10 (7.40-12.00) fL Neut % (Auto) 63.2 (48.0-80.0) % Lymph % (Auto) 26.4 (16.0-40.0) % [place] % (Auto) 9.9 (0.0-15.0) % Eos % (Auto) 0.3 (0.0-7.0) % Baso % (Auto) 0.2 (0.0-1.5) % Neut # (Auto) 6.4 H (1.4-5.7) K/uL Lymph # (Auto) 2.7 H (0.6-2.4) K/uL [place] # (Auto) 1.0 H (0.0-0.8) K/uL Eos # (Auto) 0.0 (0.0-0.7) K/uL Baso # (Auto) 0.0 (0.0-0.1) K/uL Nucleated RBC % 0.0 /100WBC Nucleated RBCs # 0 K/uL ABG pH (7.35-7.45) ABG pCO2 (35-45) mmHG ABG pO2 (75-100) mmHG ABG HCO3 (22-26) mEq/L ABG Total CO2 ABG Base Excess (-2.0-2.0) Lactate 0.7 (0.20-2.00) mmol/L Sodium (136-148) mmol/L Potassium (3.5-5.1) mmol/L Chloride (98-107) mmol/L Carbon Dioxide (21.0-32.0) mmol/L BUN (7.0-18.0) mg/dL Creatinine (0.8-1.3) mg/dL Est Cr Clr Drug Dosing mL/min Estimated GFR (MDRD) ml/min Glucose (74-106) mg/dL Calcium (8.5-10.1) mg/dL Magnesium (1.8-2.4) mg/dL Total Bilirubin (0.2-1.0) mg/dL AST (15-37) IU/L ALT (14-63) IU/L Alkaline Phosphatase (46-116) U/L Troponin I (0.000-0.056) ng/mL C-Reactive Protein (0.00-0.90) mg/dL B-Natriuretic Peptide 82 (<100) PG/ML Total Protein (6.4-8.2) g/dL Albumin (3.4-5.0) g/dL Globulin (2.6-4.0) g/dL Albumin/Globulin Ratio (0.9-1.6) SARS CoV-2 RNA Rapid LUIS (NEGATIVE) 10/11/20 10/11/20 10/11/20 Range/Units 10:51 10:59 11:38 WBC (4.0-11.0) K/uL RBC (4.50-5.90) M/uL Hgb (13.0-17.0) g/dL Hct (38.0-50.0) % MCV (80.0-98.0) fL MCH (27.0-32.0) pg MCHC (31.0-37.0) g/dL RDW Std Deviation (28.0-62.0) fl RDW Coeff of [place]occo (11.0-15.0) % Plt Count (150-400) K/uL MPV (7.40-12.00) fL Neut % (Auto) (48.0-80.0) % Lymph % (Auto) (16.0-40.0) % [place] % (Auto) (0.0-15.0) % Eos % (Auto) (0.0-7.0) % Baso % (Auto) (0.0-1.5) % Neut # (Auto) (1.4-5.7) K/uL Lymph # (Auto) (0.6-2.4) K/uL [place] # (Auto) (0.0-0.8) K/uL Eos # (Auto) (0.0-0.7) K/uL Baso # (Auto) (0.0-0.1) K/uL Nucleated RBC % /100WBC Nucleated RBCs # K/uL ABG pH 7.286 L (7.35-7.45) ABG pCO2 77 H (35-45) mmHG ABG pO2 95 (75-100) mmHG ABG HCO3 37 H (22-26) mEq/L ABG Total CO2 34.0 ABG Base Excess 7.3 H (-2.0-2.0) Lactate (0.20-2.00) mmol/L Sodium 139 (136-148) mmol/L Potassium 5.4 H (3.5-5.1) mmol/L Chloride 99 (98-107) mmol/L Carbon Dioxide 36.4 H (21.0-32.0) mmol/L BUN 24 H (7.0-18.0) mg/dL Creatinine 1.3 (0.8-1.3) mg/dL Est Cr Clr Drug Dosing 47.57 mL/min Estimated GFR (MDRD) 53.3 ml/min Glucose 200 H (74-106) mg/dL Calcium 8.8 (8.5-10.1) mg/dL Magnesium 1.7 L (1.8-2.4) mg/dL Total Bilirubin 0.4 (0.2-1.0) mg/dL AST 31 (15-37) IU/L ALT 33 (14-63) IU/L Alkaline Phosphatase 77 (46-116) U/L Troponin I < 0.050 (0.000-0.056) ng/mL C-Reactive Protein 2.50 H (0.00-0.90) mg/dL B-Natriuretic Peptide (<100) PG/ML Total Protein 7.6 (6.4-8.2) g/dL Albumin 3.4 (3.4-5.0) g/dL Globulin 4.2 H (2.6-4.0) g/dL Albumin/Globulin Ratio 0.8 L (0.9-1.6) SARS CoV-2 RNA Rapid LUIS POSITIVE H (NEGATIVE) 10/11/20 Range/Units 12:32 WBC (4.0-11.0) K/uL RBC (4.50-5.90) M/uL Hgb (13.0-17.0) g/dL Hct (38.0-50.0) % MCV (80.0-98.0) fL MCH (27.0-32.0) pg MCHC (31.0-37.0) g/dL RDW Std Deviation (28.0-62.0) fl RDW Coeff of [place]occo (11.0-15.0) % Plt Count (150-400) K/uL MPV (7.40-12.00) fL Neut % (Auto) (48.0-80.0) % Lymph % (Auto) (16.0-40.0) % [place] % (Auto) (0.0-15.0) % Eos % (Auto) (0.0-7.0) % Baso % (Auto) (0.0-1.5) % Neut # (Auto) (1.4-5.7) K/uL Lymph # (Auto) (0.6-2.4) K/uL [place] # (Auto) (0.0-0.8) K/uL Eos # (Auto) (0.0-0.7) K/uL Baso # (Auto) (0.0-0.1) K/uL Nucleated RBC % /100WBC Nucleated RBCs # K/uL ABG pH 7.307 L (7.35-7.45) ABG pCO2 72 H (35-45) mmHG ABG pO2 96 (75-100) mmHG ABG HCO3 36 H (22-26) mEq/L ABG Total CO2 33.4 ABG Base Excess 7.3 H (-2.0-2.0) Lactate (0.20-2.00) mmol/L Sodium (136-148) mmol/L Potassium (3.5-5.1) mmol/L Chloride (98-107) mmol/L Carbon Dioxide (21.0-32.0) mmol/L BUN (7.0-18.0) mg/dL Creatinine (0.8-1.3) mg/dL Est Cr Clr Drug Dosing mL/min Estimated GFR (MDRD) ml/min Glucose (74-106) mg/dL Calcium (8.5-10.1) mg/dL Magnesium (1.8-2.4) mg/dL Total Bilirubin (0.2-1.0) mg/dL AST (15-37) IU/L ALT (14-63) IU/L Alkaline Phosphatase (46-116) U/L Troponin I (0.000-0.056) ng/mL C-Reactive Protein (0.00-0.90) mg/dL B-Natriuretic Peptide (<100) PG/ML Total Protein (6.4-8.2) g/dL Albumin (3.4-5.0) g/dL Globulin (2.6-4.0) g/dL Albumin/Globulin Ratio (0.9-1.6) SARS CoV-2 RNA Rapid LUIS (NEGATIVE) Meds: Medications Generic Name Dose Route Start Last Admin Trade Name Freq PRN Reason Stop Dose Admin Sodium Chloride 10 ml 10/11/20 10:54 Saline Flush FLUSH ASDIRECTED PRN Keep Vein Open Sodium Chloride 2.5 ml 10/11/20 10:54 Saline Flush FLUSH ASDIRECTED PRN Keep Vein Open Discontinued Medications Generic Name Dose Route Start Last Admin Trade Name Freq PRN Reason Stop Dose Admin Dexamethasone 10 mg 10/11/20 12:47 Decadron IVPUSH 10/11/20 12:48 ONETIME ONE - Re-Assessments/Exams Free Text/Narrative Re-Assessment/Exam: 10/11/20 11:22 Patient's pCO2 is markedly elevated to 70s; will start BiPAP and reassess. 10/11/20 13:00 pCO2 improved mildly to 72. Patient is clinically still very drowsy. Spoke with daughter who confirms patient is DNR but would like intubation if necessary. Will run it by ICU dental associate and make a plan. Spoke with Ladi my mary who does not have room availability. Spoke with [facility] Nguyễn he does not have room availability. Spoke with Erick Nguyễn who does not have room availability. Spoke with Erick Shoemaker who does have room availability and will call back. 10/11/20 13:[address] Esquivel dental associate and discussed patient's labs and clinical condition; he recommends avoiding intubation. 10/11/20 13:19 Dr. Kapoor agrees to admit to intermediate care Departure - Departure Time of Disposition: 13:19 Disposition: DC/Tfer to Acute Hospital 02 Condition: Fair Clinical Impression: COVID-19 - Discharge Information Referrals: Javi Dobbs EMPLOYEE COMMUNICATIONS SPECIALIST [Primary Care Provider] - Forms: ED Department Discharge Sepsis Event Note (ED) - Evaluation Sepsis Screening Result: No Definite Risk - Focused Exam Vital Signs: Vital Signs Temp Pulse Resp BP Pulse Ox 10/11/20 13:08 98.5 F 10/11/20 12:31 69 112/59 L 96 10/11/20 12:16 70 110/56 L 10/11/20 12:01 70 108/59 L 96 10/11/20 11:45 70 26 H 109/62 96 10/11/20 11:30 70 97 10/11/20 11:10 73 95 10/11/20 11:04 96.9 F 73 24 H 120/83 92 L - My Orders Last 24 Hours: My Active Orders 10/11/20 10:54 Cardiac Monitoring [RC] . DIRECTED EKG Documentation Completion [RC] STAT Pulse Oximetry [RC] ASDIRECTED Sodium Chloride 0.9% [Saline Flush] 10 ml FLUSH ASDIRECTED PRN Sodium Chloride 0.9% [Saline Flush] 2.5 ml FLUSH ASDIRECTED PRN Saline Lock Insert [OM.PC] Stat 10/11/20 11:00 UA W/CHARLENE RFLX IF INDICATED [URIN] Stat 10/11/20 11:13 BIPAP Adult [RT BiPAP/CPAP] [RC] ASDIRECTED 10/11/20 11:38 CORONAVIRUS COVID-19 PCR PHL Stat - Assessment/Plan Last 24 Hours: My Active Orders 10/11/20 10:54 Cardiac Monitoring [RC] . DIRECTED EKG Documentation Completion [RC] STAT Pulse Oximetry [RC] ASDIRECTED Sodium Chloride 0.9% [Saline Flush] 10 ml FLUSH ASDIRECTED PRN Sodium Chloride 0.9% [Saline Flush] 2.5 ml FLUSH ASDIRECTED PRN Saline Lock Insert [OM.PC] Stat 10/11/20 11:00 UA W/CHARLENE RFLX IF INDICATED [URIN] Stat 10/11/20 11:13 BIPAP Adult [RT BiPAP/CPAP] [RC] ASDIRECTED 10/11/20 11:38 CORONAVIRUS COVID-19 PCR PHL Stat
[2020-10-11 11:38] LABS: BLOOD UREA NITROGEN,BUN 24 mg/dL (7.0-18.0); CARBON DIOXIDE,CO2 36.4 mmol/L (21.0-32.0); CHLORIDE,CL 99 mmol/L (98-107); GLUCOSE RANDOM 200 mg/dL (74-106); POTASSIUM,K 5.4 mmol/L (3.5-5.1); SODIUM,NA 139 mmol/L (136-148)
--- NOTE | 2020-10-11 11:57 | CR ---
INDICATION: Dyspnea COMPARISON: August 20, 2020 TECHNIQUE: Single view AP upright portable chest radiograph FINDINGS: TUBES AND LINES: None. HEART AND MEDIASTINUM: Enlarged heart unchanged in appearance. LUNGS AND PLEURAL SPACES: Airspace disease identified primarily involving the mid lungs and at the bases, left greater than right. This appearance may in part be due to overlying pleural plaques. Probable small effusions. OSSEOUS STRUCTURES: Age-appropriate appearance. No acute focal finding. IMPRESSION: 1. Enlarged heart. 2. Airspace disease identified involving primarily the mid lungs and the bases, left greater than right. Probable small effusions. 3. The appearance may in part be due to overlying calcified pleural plaques. 4. Overall similar appearance to August 20, 2020 Dictated by Louis Cooley MD @ Oct 11 2020 11:53AM Signed by Dr. Louis Cooley @ Oct 11 2020 11:56AM
[2020-10-11] MEDS ORDERED: Dexamethasone 10 MG/ML SDV IVPUSH ONE (12:47)
[2020-10-11] MEDS ORDERED: Dexamethasone 10 MG/ML SDV ONE (13:44)
== END 2020-10-11 13:30 ==
LOC: MW.ED 10:47
DX: U07.1 COVID-19 (principal); J44.9 Chronic obstructive pulmonary disease, unspecified; I25.10 Atherosclerotic heart disease of native coronary artery without angina pectoris; E78.5 Hyperlipidemia, unspecified; I48.91 Unspecified atrial fibrillation; K21.9 Gastro-esophageal reflux disease without esophagitis; M19.90 Unspecified osteoarthritis, unspecified site; E11.9 Type 2 diabetes mellitus without complications; E78.00 Pure hypercholesterolemia, unspecified; I11.0 Hypertensive heart disease with heart failure; I50.9 Heart failure, unspecified; I25.2 Old myocardial infarction; F41.9 Anxiety disorder, unspecified; F32.9 Major depressive disorder, single episode, unspecified; Z95.5 Presence of coronary angioplasty implant and graft; Z91.041 Radiographic dye allergy status; Z88.6 Allergy status to analgesic agent; Z79.01 Long term (current) use of anticoagulants; Z88.8 Allergy status to other drugs, medicaments and biological substances; Z91.040 Latex allergy status; Z79.82 Long term (current) use of aspirin; Z79.4 Long term (current) use of insulin
CPT/HCPCS: 36415; 36600; 71045; 80053; 82803; 83605; 83735; 83880; 84484; 85025; 86140; 87635; 93005; 94660; 96374; 99291; J1100; J7050; U0002

== ENCOUNTER 2020-10-17 21:18 | Emergency (ER) | payer OTHER ==
[2020-10-17] MEDS ORDERED: propofoL 100 ML ONE (21:38)
[2020-10-17] MEDS ORDERED: Propofol 200 MG/20 ML SDV ONE (21:39)
[2020-10-17] MEDS ORDERED: Sodium Chloride 0.9% 2.5 ML Syringe FLUSH PRN (21:45)
[2020-10-17] MEDS ORDERED: Sodium Chloride 0.9% 10 ML Syringe FLUSH PRN (21:45)
--- NOTE | 2020-10-17 21:55 | EDM.PDOC ---
ED HPI GENERAL MEDICAL PROBLEM - General Stated Complaint: GI BLEEDING Time Seen by Provider: 10/17/20 21:45 - History of Present Illness INITIAL COMMENTS - FREE TEXT/NARRATIVE: 80-year-old male with a history of COPD, CHF, A. fib, V. tach on amiodarone, a spirin, Eliquis as well as multiple other medications who presents in respiratory distress. The patient was diagnosed with COVID-19 approximately a week ago he ended up having acute respiratory failure reportedly being intubated and being flown to another facility. He normally is on 2 L of oxygen at baseline. Today he felt more weak than normal he states that it started around 5. He had 2 bright red bloody bowel movements and then was too weak to stand EMS was called in the field his oxygen was in the 80s he was placed on a nonrebreather he was given a neb treatment hypoxia did not improve. On my assessment he is awake but speaks in very short sentences and is dyspneic with a respiratory rate in the 50s. Further history limited by clinical condition. Patient's daughter briefly at bedside states that he did have a fall earlier in the day due to weakness and struck his head. He denies any neck pain. Patient was seen in this emergency department 6 days ago for respiratory failure hypercapnic primarily. He tested positive for Covid at that time he ended up being transferred to [facility] after being placed on BiPAP. - Related Data Allergies Allergy/AdvReac Type Severity Reaction Status Date / Time atorvastatin Allergy Other Verified 10/11/20 11:04 bupropion [From Wellbutrin] Allergy Other Verified 10/11/20 11:04 duloxetine HCl Allergy Rash Verified 10/11/20 11:04 [From Cymbalta] Iodinated Contrast Media Allergy Other Verified 10/11/20 11:04 meloxicam Allergy Other Verified 10/11/20 11:04 naproxen Allergy Other Verified 10/11/20 11:04 paroxetine Allergy Other Verified 10/11/20 11:04 sertraline HCl [From Zoloft] Allergy Rash Verified 10/11/20 11:04 venlafaxine [From Effexor] Allergy oth Verified 10/11/20 11:04 Home Meds: Home Meds Albuterol Sulfate [Albuterol Sulfate Hfa] 2 inh IH Q6H PRN 10/13/19 [History] Albuterol/Ipratropium [DuoNeb 3.0-0.5 MG/3 ML] 3 ml NEB Q6H PRN 10/13/19 [History] Aspirin [Ecotrin EC] 81 mg PO DAILY 10/13/19 [History] Budesonide/Formoterol Fumarate [Symbicort 160-4.5 Mcg Inhaler] 2 inh IH Q12H 10/13/19 [History] Citalopram [Citalopram HBr] 10 mg PO DAILY 10/13/19 [History] Diclofenac Sodium [Voltaren 1% Gel] 4 gm TOP QID PRN MDD total body dose 32gm max 10/13/19 [History] Hydrocodone/Acetaminophen [Galva 10-325 Tablet] 1 tab PO TID PRN 10/13/19 [History] Insulin Aspart [NovoLOG] 15 unit SUBCUT TIDMEALS 10/13/19 [History] Lidocaine 5% [Lidoderm 5%] 2 patch TD .ON 12 HR, OFF 12 HR 10/13/19 [History] [place]-3/DHA/Epa/Fish Oil [Fish Oil 1,000 mg Softgel] 1,000 mg PO BID 10/13/19 [History] Pantoprazole [ProTONIX] 40 mg PO ACBREAKFAST 10/13/19 [History] Rosuvastatin Calcium [Crestor] 40 mg PO BEDTIME 10/13/19 [History] Spironolactone [Aldactone] 50 mg PO DAILY 10/13/19 [History] metFORMIN HCl [Metformin HCl ER] 1,000 mg PO BID 10/13/19 [History] polyethylene glycoL 3350 [MiraLAX] 17 gm PO DAILY PRN 10/13/19 [History] Furosemide 40 mg PO DAILY 12/30/19 [History] Gabapentin [Neurontin] 600 mg PO QID 12/30/19 [History] Alogliptin Benzoate [Alogliptin] 25 mg PO DAILY 01/27/20 [History] Insulin Glarg,Human.Rec.Analog [Lantus Solostar] 30 unit SUBCUT BID #1 box 03/03/20 [Rx] Amitriptyline [Elavil] 25 mg PO BEDTIME 08/15/20 [History] Azithromycin [Zithromax] 250 mg PO MOWEFR 08/15/20 [History] Tiotropium [place] [Spiriva Respimat] 2 puff INH Q24H 08/15/20 [History] methocarbamoL [Methocarbamol] 750 mg PO TID PRN 08/15/20 [History] Apixaban [Eliquis] 5 mg PO BID #60 tablet 08/22/20 [Rx] Diltiazem [Cardizem CD] 120 mg PO DAILY #30 cap.cd 08/22/20 [Rx] Amiodarone [Cordarone] 200 mg PO BID 10/11/20 [History] Past Medical History HEENT History: Reports: None Other HEENT History: glasses and hearing aides Cardiovascular History: Reports: CAD, Heart Failure, High Cholesterol, Hypertension, MD, Stents Respiratory History: Reports: Asthma, COPD Other Respiratory History: states may need cpap but does not have one. Gastrointestinal History: Reports: Diverticulosis, Gastritis, GERD Genitourinary History: Reports: None Musculoskeletal History: Reports: Arthritis, Back Pain, Chronic Neurological History: Reports: None Psychiatric History: Reports: Anxiety, Depression, Panic Attack, PTSD Endocrine/Metabolic History: Reports: Diabetes, Type II Insulin Pump Model and Dust Handler: None Hematologic History: Reports: None Immunologic History: Reports: None Oncologic (Cancer) History: Reports: None Dermatologic History: Reports: None - Infectious Disease History Infectious Disease History: Reports: None - Past Surgical History Head Surgeries/Procedures: Reports: None HEENT Surgical History: Reports: None Cardiovascular Surgical History: Reports: Other (See Below) Other Cardiovascular Surgeries/Procedures: Respiratory Surgical History: Reports: None Other Respiratory Surgeries/Procedures: on 2L/min @ home GI Surgical History: Reports: Colonoscopy Male Surgical History: Reports: None Endocrine Surgical History: Reports: None Neurological Surgical History: Reports: None Musculoskeletal Surgical History: Reports: None Oncologic Surgical History: Reports: None Dermatological Surgical History: Reports: None Social & Family History - Family History Family Medical History: No Pertinent Family History - Caffeine Use Caffeine Use: Reports: Coffee Caffeine Use Comment: pt is sleeping ED ROS GENERAL - Review of Systems Review Of Systems: Unable To Obtain Reason Not Obtained: critical illness ED EXAM, GENERAL - Physical Exam Exam: See Below Free Text/Narrative:: General Appearance: Moderate respiratory distress Skin: Pale HEENT: Normocephalic/atraumatic, sclera anicteric, mucous membranes dry Neck: Normal range of motion Chest and Lungs: Shallow breaths, tachypnea, rales and crackles at the bilateral bases Cardiovascular: Mildly tachycardic rate and rhythm, no murmur Abdomen: Soft, non-tender, gross bright red blood on digital rectal exam Back: Normal Musculoskeletal: No edema or tenderness Neurologic: Awake, alert, no obvious deficits, moving all extremities ED GENERAL MEDICAL PROCEDURES - Endotracheal Intubation Preparation: Suction, Balloon Tested, BVM Set Up Anesthesia Meds: Etomidate, Rocuronium Placement: Orotracheal Cords Visualized: Grade 1 ETT Size In mm: 7.5 Number of Attempts: 1 Confirmed By: CO2 Indicator, Bilateral Breath Sounds, Chest Xray Tube Secured By: By RT Endotracheal Intubation Comment: Patient was intubated with a MAC 3 glide scope with grade 1 viewing good first- pass success patient was in debated for impending respiratory failure due to increased work of breathing. Course - Vital Signs Last Recorded V/S: Last Vital Signs Temp 92.3 F L 10/17/20 21:23 Pulse 113 H 10/17/20 21:23 Resp 28 H 10/17/20 21:23 BP 117/73 10/17/20 21:23 Pulse Ox 72 L 10/17/20 21:23 - Orders/Labs/Meds Orders: Active Orders 24 hr Category Date Time Status EKG 12 Lead [EKG Documentation Completion] [] STAT Care 10/17/20 21:47 Active Ventilator Assessment, ED [RT Ventilator ED, Adult] [ Care 10/17/20 22:58 Active ] ASDIRECTED B-TYPE NATRIURETIC PEPTIDE,BNP [CHEM] Stat Lab 10/17/20 21:49 Received CULTURE BLOOD [BC] Stat Lab 10/17/20 22:45 Received CULTURE BLOOD [BC] Stat Lab 10/17/20 22:53 Received PROCALCITONIN [REF] Stat Lab 10/17/20 21:45 Received Dextrose 50% in Water Med 10/17/20 22:35 Active 50 ml IV ASDIRECTED PRN Glucagon,Human Recombinant [GlucaGen] Med 10/17/20 22:35 Active 1 mg IM ASDIRECTED PRN Lactated Ringers [Ringers, Lactated] 500 ml Med 10/18/20 00:35 Active IV .BOLUS Norepinephrine Bit 4 MG in 0.9 % NaCl 250 ml @ 2 MCG/ Med 10/18/20 01:00 Ordered MIN Norepinephrine Bit/0.9 % NaCl [Norepinephr-0.9% NaCl 4 mg/250] 4 mg in 250 ml IV TITRATE Sodium Chloride 0.9% [Saline Flush] Med 10/17/20 21:45 Active 10 ml FLUSH ASDIRECTED PRN Sodium Chloride 0.9% [Saline Flush] Med 10/17/20 21:45 Active 2.5 ml FLUSH ASDIRECTED PRN fentaNYL [Sublimaze] 2,500 mcg Med 10/18/20 00:15 Active Sodium Chloride 0.9% [Normal Saline] 200 ml IV TITRATE Blood Culture x2 Reflex Set [OM.PC] Stat Oth 10/17/20 21:46 Ordered Saline Lock Insert [OM.PC] Stat Ot 10/17/20 21:45 Ordered Medication Orders Dextrose/Water (Dextrose 50% In Water) 50 ml IV ASDIRECTED PRN PRN Reason: Hypoglycemia Glucagon (Glucagen) 1 mg IM ASDIRECTED PRN PRN Reason: Hypoglycemia Fentanyl 2,500 mcg/ Sodium (Chloride) 250 mls @ 10.7 mls/hr IV TITRATE MAGEN; Protocol Lactated Ringer's (Ringers, Lactated) 500 mls @ 999 mls/hr IV .BOLUS ONE Stop: 10/18/20 01:05 Norepinephrine Bitartrate (Norepinephr-0.9% Nacl 4 Mg/250) 4 mg in 250 mls @ 7.5 mls/hr IV TITRATE MAGEN; Protocol Sodium Chloride (Saline Flush) 10 ml FLUSH ASDIRECTED PRN PRN Reason: Keep Vein Open Sodium Chloride (Saline Flush) 2.5 ml FLUSH ASDIRECTED PRN PRN Reason: Keep Vein Open Labs: Laboratory Tests 10/17/20 10/17/20 10/17/20 Range/Units 21:30 21:49 21:49 WBC 20.82 H (4.0-11.0) K/uL RBC 4.27 L (4.50-5.90) M/uL Hgb 12.5 L (13.0-17.0) g/dL Hct 41.2 (38.0-50.0) % MCV 96.5 (80.0-98.0) fL MCH 29.3 (27.0-32.0) pg MCHC 30.3 L (31.0-37.0) g/dL RDW Std Deviation 56.4 (28.0-62.0) fl RDW Coeff of Rocco 16 H (11.0-15.0) % Plt Count 315 (150-400) K/uL MPV 10.90 (7.40-12.00) fL Neut % (Auto) 70.8 (48.0-80.0) % Lymph % (Auto) 23.3 (16.0-40.0) % Dillon % (Auto) 5.8 (0.0-15.0) % Eos % (Auto) 0.0 (0.0-7.0) % Baso % (Auto) 0.1 (0.0-1.5) % Neut # (Auto) 14.7 H (1.4-5.7) K/uL Lymph # (Auto) 4.9 H (0.6-2.4) K/uL Dillon # (Auto) 1.2 H (0.0-0.8) K/uL Eos # (Auto) 0.0 (0.0-0.7) K/uL Baso # (Auto) 0.0 (0.0-0.1) K/uL Nucleated RBC % 0.0 /100WBC Nucleated RBCs # 0 K/uL INR APTT (18.6-31.3) SEC D-Dimer, Quantitative 1.10 H (0.0-0.50) mg/L FEU ABG pH (7.35-7.45) ABG pCO2 (35-45) mmHG ABG pO2 (75-100) mmHG ABG HCO3 ABG Total CO2 ABG Base Excess Lactate (0.20-2.00) mmol/L Sodium 134 L (136-148) mmol/L Potassium 7.7 H* (3.5-5.1) mmol/L Chloride 98 (98-107) mmol/L Carbon Dioxide 27.4 (21.0-32.0) mmol/L BUN 49 H (7.0-18.0) mg/dL Creatinine 1.8 H (0.8-1.3) mg/dL Est Cr Clr Drug Dosing TNP Estimated GFR (MDRD) 36.6 ml/min Glucose 603 H* (74-106) mg/dL Calcium 8.5 (8.5-10.1) mg/dL Total Bilirubin 0.3 (0.2-1.0) mg/dL AST 32 (15-37) IU/L ALT 48 (14-63) IU/L Alkaline Phosphatase 78 (46-116) U/L Creatine Kinase (26-308) U/L Troponin I < 0.050 (0.000-0.056) ng/mL Total Protein 6.1 L (6.4-8.2) g/dL Albumin 2.7 L (3.4-5.0) g/dL Globulin 3.4 (2.6-4.0) g/dL Albumin/Globulin Ratio 0.8 L (0.9-1.6) 10/17/20 10/17/20 10/17/20 Range/Units 21:49 21:49 21:49 WBC (4.0-11.0) K/uL RBC (4.50-5.90) M/uL Hgb (13.0-17.0) g/dL Hct (38.0-50.0) % MCV (80.0-98.0) fL MCH (27.0-32.0) pg MCHC (31.0-37.0) g/dL RDW Std Deviation (28.0-62.0) fl RDW Coeff of Rocco (11.0-15.0) % Plt Count (150-400) K/uL MPV (7.40-12.00) fL Neut % (Auto) (48.0-80.0) % Lymph % (Auto) (16.0-40.0) % Dillon % (Auto) (0.0-15.0) % Eos % (Auto) (0.0-7.0) % Baso % (Auto) (0.0-1.5) % Neut # (Auto) (1.4-5.7) K/uL Lymph # (Auto) (0.6-2.4) K/uL Dillon # (Auto) (0.0-0.8) K/uL Eos # (Auto) (0.0-0.7) K/uL Baso # (Auto) (0.0-0.1) K/uL Nucleated RBC % /100WBC Nucleated RBCs # K/uL INR 1.10 APTT 22.1 (18.6-31.3) SEC D-Dimer, Quantitative (0.0-0.50) mg/L FEU ABG pH (7.35-7.45) ABG pCO2 (35-45) mmHG ABG pO2 (75-100) mmHG ABG HCO3 ABG Total CO2 ABG Base Excess Lactate 5.3 H* (0.20-2.00) mmol/L Sodium (136-148) mmol/L Potassium (3.5-5.1) mmol/L Chloride (98-107) mmol/L Carbon Dioxide (21.0-32.0) mmol/L BUN (7.0-18.0) mg/dL Creatinine (0.8-1.3) mg/dL Est Cr Clr Drug Dosing Estimated GFR (MDRD) ml/min Glucose (74-106) mg/dL Calcium (8.5-10.1) mg/dL Total Bilirubin (0.2-1.0) mg/dL AST (15-37) IU/L ALT (14-63) IU/L Alkaline Phosphatase (46-116) U/L Creatine Kinase 23 L (26-308) U/L Troponin I (0.000-0.056) ng/mL Total Protein (6.4-8.2) g/dL Albumin (3.4-5.0) g/dL Globulin (2.6-4.0) g/dL Albumin/Globulin Ratio (0.9-1.6) 10/17/20 10/18/20 10/18/20 Range/Units 22:51 00:09 00:09 WBC (4.0-11.0) K/uL RBC (4.50-5.90) M/uL Hgb (13.0-17.0) g/dL Hct (38.0-50.0) % MCV (80.0-98.0) fL MCH (27.0-32.0) pg MCHC (31.0-37.0) g/dL RDW Std Deviation (28.0-62.0) fl RDW Coeff of Rocco (11.0-15.0) % Plt Count (150-400) K/uL MPV (7.40-12.00) fL Neut % (Auto) (48.0-80.0) % Lymph % (Auto) (16.0-40.0) % Dillon % (Auto) (0.0-15.0) % Eos % (Auto) (0.0-7.0) % Baso % (Auto) (0.0-1.5) % Neut # (Auto) (1.4-5.7) K/uL Lymph # (Auto) (0.6-2.4) K/uL Dillon # (Auto) (0.0-0.8) K/uL Eos # (Auto) (0.0-0.7) K/uL Baso # (Auto) (0.0-0.1) K/uL Nucleated RBC % /100WBC Nucleated RBCs # K/uL INR APTT (18.6-31.3) SEC D-Dimer, Quantitative (0.0-0.50) mg/L FEU ABG pH 7.281 L 7.356 (7.35-7.45) ABG pCO2 57 H 43 (35-45) mmHG ABG pO2 305 H 401 H (75-100) mmHG ABG HCO3 27 24 ABG Total CO2 28 29 ABG Base Excess -1 -1.3 Lactate 1.4 (0.20-2.00) mmol/L Sodium (136-148) mmol/L Potassium (3.5-5.1) mmol/L Chloride (98-107) mmol/L Carbon Dioxide (21.0-32.0) mmol/L BUN (7.0-18.0) mg/dL Creatinine (0.8-1.3) mg/dL Est Cr Clr Drug Dosing Estimated GFR (MDRD) ml/min Glucose (74-106) mg/dL Calcium (8.5-10.1) mg/dL Total Bilirubin (0.2-1.0) mg/dL AST (15-37) IU/L ALT (14-63) IU/L Alkaline Phosphatase (46-116) U/L Creatine Kinase (26-308) U/L Troponin I (0.000-0.056) ng/mL Total Protein (6.4-8.2) g/dL Albumin (3.4-5.0) g/dL Globulin (2.6-4.0) g/dL Albumin/Globulin Ratio (0.9-1.6) Meds: Medications Generic Name Dose Route Start Last Admin Trade Name Freq PRN Reason Stop Dose Admin Dextrose/Water 50 ml 10/17/20 22:35 Dextrose 50% In Water IV ASDIRECTED PRN Hypoglycemia Glucagon 1 mg 10/17/20 22:35 Glucagen IM ASDIRECTED PRN Hypoglycemia Fentanyl 2,500 mcg/ Sodium 250 mls @ 10.7 mls/hr 10/18/20 00:15 Chloride IV TITRATE MAGEN Protocol 1 MCG/KG/HR Lactated Ringer's 500 mls @ 999 mls/hr 10/18/20 00:35 Ringers, Lactated IV 10/18/20 01:05 .BOLUS ONE Norepinephrine Bitartrate 4 mg in 250 mls @ 7.5 mls/hr 10/18/20 01:00 Norepinephr-0.9% Nacl 4 Mg/250 IV TITRATE MAGEN Protocol 2 MCG/MIN Sodium Chloride 10 ml 10/17/20 21:45 Saline Flush FLUSH ASDIRECTED PRN Keep Vein Open Sodium Chloride 2.5 ml 10/17/20 21:45 Saline Flush FLUSH ASDIRECTED PRN Keep Vein Open Discontinued Medications Generic Name Dose Route Start Last Admin Trade Name Nikolasq PRN Reason Stop Dose Admin Calcium Gluconate 1 gm 10/17/20 22:35 10/17/20 22:49 Calcium Gluconate IVPUSH 10/17/20 22:36 1 gm ONETIME ONE Administration Fentanyl 50 mcg 10/18/20 00:33 10/18/20 00:41 Fentanyl IVPUSH 10/18/20 00:34 50 mcg ONETIME ONE Administration Propofol Confirm 10/17/20 21:38 Diprivan 100 Ml Administered 10/17/20 21:39 Dose 100 mls @ as directed .ROUTE .STK-MED ONE Cefepime HCl 2 gm/ Premix 50 mls @ 100 mls/hr 10/17/20 22:00 10/17/20 22:45 IV Not Given Q8H MAGEN Vancomycin HCl 1 gm/ Sodium 250 mls @ 166 mls/hr 10/17/20 22:01 10/17/20 22:45 Chloride IV 10/17/20 23:31 Not Given ONETIME ONE Cefepime HCl 2 gm/ Premix 50 mls @ 100 mls/hr 10/17/20 22:32 10/17/20 22:44 IV 10/17/20 23:01 100 mls/hr ONETIME ONE Administration Vancomycin HCl 1 gm/ Sodium 250 mls @ 166 mls/hr 10/17/20 22:32 10/17/20 22:44 Chloride IV 10/18/20 00:02 166 mls/hr ONETIME ONE Administration Insulin Human Regular 10 unit 10/17/20 22:35 10/17/20 22:46 Novolin R IVPUSH 10/17/20 22:36 10 units ONETIME ONE Administration Protocol Propofol Confirm 10/17/20 21:39 Diprivan 20 Ml Administered 10/17/20 21:40 Dose 200 mg .ROUTE .STK-MED ONE Departure - Departure Time of Disposition: 00:52 Disposition: DC/Tfer to Acute Hospital 02 Condition: Critical Clinical Impression: Acute respiratory failure due to COVID-19, GI bleeding - Discharge Information *PRESCRIPTION DRUG MONITORING PROGRAM REVIEWED*: Not Applicable *COPY OF PRESCRIPTION DRUG MONITORING REPORT IN PATIENT MARK: Not Applicable Referrals: PCP,None [Primary Care Provider] - Critical Care Note - Critical Care Note Total Time (mins): 50 Sepsis Event Note (ED) - Focused Exam Vital Signs: Vital Signs Temp Pulse Resp BP Pulse Ox 10/17/20 21:23 92.3 F L 113 H 28 H 117/73 72 L - My Orders Last 24 Hours: My Active Orders 10/17/20 21:45 PROCALCITONIN [REF] Stat Sodium Chloride 0.9% [Saline Flush] 10 ml FLUSH ASDIRECTED PRN Sodium Chloride 0.9% [Saline Flush] 2.5 ml FLUSH ASDIRECTED PRN Saline Lock Insert [OM.PC] Stat 10/17/20 21:46 Blood Culture x2 Reflex Set [OM.PC] Stat 10/17/20 21:47 EKG 12 Lead [EKG Documentation Completion] [RC] STAT 10/17/20 21:49 B-TYPE NATRIURETIC PEPTIDE,BNP [CHEM] Stat 10/17/20 22:35 Dextrose 50% in Water 50 ml IV ASDIRECTED PRN Glucagon,Human Recombinant [GlucaGen] 1 mg IM ASDIRECTED PRN 10/17/20 22:45 CULTURE BLOOD [BC] Stat 10/17/20 22:53 CULTURE BLOOD [BC] Stat 10/17/20 22:58 Ventilator Assessment, ED [RT Ventilator ED, Adult] [RC] ASDIRECTED 10/18/20 00:15 fentaNYL [Sublimaze] 2,500 mcg Sodium Chloride 0.9% [Normal Saline] 200 ml IV TITRATE 10/18/20 00:35 Lactated Ringers [Ringers, Lactated] 500 ml IV .BOLUS 10/18/20 01:00 Norepinephrine Bit 4 MG in 0.9 % NaCl 250 ml @ 2 MCG/MIN Norepinephrine Bit/0.9 % NaCl [Norepinephr-0.9% NaCl 4 mg/250] 4 mg in 250 ml IV TITRATE - Assessment/Plan Last 24 Hours: My Active Orders 10/17/20 21:45 PROCALCITONIN [REF] Stat Sodium Chloride 0.9% [Saline Flush] 10 ml FLUSH ASDIRECTED PRN Sodium Chloride 0.9% [Saline Flush] 2.5 ml FLUSH ASDIRECTED PRN Saline Lock Insert [OM.PC] Stat 10/17/20 21:46 Blood Culture x2 Reflex Set [OM.PC] Stat 10/17/20 21:47 EKG 12 Lead [EKG Documentation Completion] [RC] STAT 10/17/20 21:49 B-TYPE NATRIURETIC PEPTIDE,BNP [CHEM] Stat 10/17/20 22:35 Dextrose 50% in Water 50 ml IV ASDIRECTED PRN Glucagon,Human Recombinant [GlucaGen] 1 mg IM ASDIRECTED PRN 10/17/20 22:45 CULTURE BLOOD [BC] Stat 10/17/20 22:53 CULTURE BLOOD [BC] Stat 10/17/20 22:58 Ventilator Assessment, ED [RT Ventilator ED, Adult] [RC] ASDIRECTED 10/18/20 00:15 fentaNYL [Sublimaze] 2,500 mcg Sodium Chloride 0.9% [Normal Saline] 200 ml IV TITRATE 10/18/20 00:35 Lactated Ringers [Ringers, Lactated] 500 ml IV .BOLUS 10/18/20 01:00 Norepinephrine Bit 4 MG in 0.9 % NaCl 250 ml @ 2 MCG/MIN Norepinephrine Bit/0.9 % NaCl [Norepinephr-0.9% NaCl 4 mg/250] 4 mg in 250 ml IV TITRATE Assessment:: 80yoM with markedly increased WOB with known COVID-19 infection as well as BRBPR with reported bloody bowel movements and GI bleeding. EKG is sinus with rate of 109 and LBBB. LA is elevated. Post intubation CXR with bilateral changes but worse on the left and given this blood cultures ordered, will give initial vanc / cefepime for potential PNA x 1 as well for now given signs of sepsis. Pt will likely be harmed by full 30 ml / kg fluid bolus. Pt was given a rapid bolus of 1 liter NS for hypotension and will reassess. CT brain ordered given reported fall. However, no signs of trauma on exam. cbc, cmp, abg, inr, ptt, procal, trop, bnp ordered. Propofol for post intubation sedation. Pt given a slow push of 30 by myself and gtt started. Will need to be cautious given relative hypotension. We are currently working on transfer. I called [facility] at [phone] and they do not have capacity. I called [facility] at [phone] they do not have capacity. I called [facility] and 1 call is going to speak to their meter changes records clerk. They may be able to accommodate the patient. [employer] Dr. Castillo accepts the patient for transfer to the ICU at [facility]. The initial plan was to hold on abx for now as it would delay transfer. However, due to inability to obtain helicopter due to weather the patient will need to fly fixed wing this will lead to a 2-hour delay in transfer. For this reason we will proceed with antibiotics patient's potassium elevated 7.7 glucose elevated 603 we will give calcium and insulin and recheck. 2335: ABG with significant acidosis likely mixed respiratory and metabolic. Will increase respiratory rate but will need to avoid breath stacking. We continue to await fixed wing transport. Will plan for repeat BMP/ABG at 0015- 0030. 0030: Repeat ABG demonstrates normalization of pH and lactic acid. Will give 500 ml LR for hypotension. If patient fails to respond then may need vasopressors. Pt has had no bowel movements, bloody or otherwise since his arrival. 0050: Flight is here for the patient. BP remains low, though IVF remains to be given will also provide this for flight.
[2020-10-17] MEDS ORDERED: Cefepime 2 GM in Premix Bag 1 BAG IV SCH (22:00)
--- NOTE | 2020-10-17 22:23 | CT ---
INDICATION: Fall, patient on blood thinners. TECHNIQUE: CT head without contrast. COMPARISON: Head CT 10/15/2019 FINDINGS: CSF spaces: Within normal limits for age. Brain parenchyma: The freire-white differentiation is normal. No sign of mass, hemorrhage, or midline shift. Skull base and calvarium: The visualized paranasal sinuses and mastoid air cells demonstrate no acute or significant findings. The visualized orbits are grossly unremarkable. No skull fractures. Atherosclerosis. IMPRESSION: Unremarkable noncontrast head CT. Please note that all CT scans at this facility use dose modulation, iterative reconstruction, and/or weight-based dosing when appropriate to reduce radiation dose to as low as reasonably achievable. Dictated by Adi Richard MD @ Oct 17 2020 10:15PM Signed by Dr. Adi Richard @ Oct 17 2020 10:21PM
--- NOTE | 2020-10-17 22:25 | CR ---
Indication: Intubation, known COVID Technique: Chest 1 view Comparison: Chest x-ray 10/11/2020 Findings/Impression: Cardiovascular and mediastinum: Cardiomegaly with endotracheal tube with the distal trachea enteric tube extending into the stomach. Lungs and pleural space: Consolidation within both lungs, greatest in the left lung base. Small left effusion not excluded. Consolidation is fairly similar to the study of 6 days prior. Bones and soft tissues: Defibrillator pads overlie the chest. Dictated by Adi Richard MD @ Oct 17 2020 10:21PM Signed by Dr. Adi Richard @ Oct 17 2020 10:22PM
[2020-10-17 22:27] LABS: BLOOD UREA NITROGEN,BUN 49 mg/dL (7.0-18.0); CARBON DIOXIDE,CO2 27.4 mmol/L (21.0-32.0); CHLORIDE,CL 98 mmol/L (98-107); SODIUM,NA 134 mmol/L (136-148)
[2020-10-17 22:31] LABS: GLUCOSE RANDOM 603 mg/dL (74-106); POTASSIUM,K 7.7 mmol/L (3.5-5.1)
[2020-10-17] MEDS ORDERED: Cefepime 2 GM in Premix Bag 1 BAG IV ONE (22:32)
[2020-10-17] MEDS ORDERED: 50% Dextrose in Water 50 ML Syringe IV PRN (22:35)
[2020-10-17] MEDS ORDERED: Glucagon,Human Recombinant 1 MG Vial IM PRN (22:35)
[2020-10-17] MEDS ORDERED: Insulin Regular, Human 100 Units/ML 10 ML Vial IVPUSH ONE (22:35)
[2020-10-17] MEDS ORDERED: Calcium Gluconate 10% 1 GM/10 ML SDV IVPUSH ONE (22:35)
[2020-10-18] MEDS ORDERED: fentaNYL 2,500 MCG in Sodium Chloride 0.9% 200 ML IV SCH (00:15)
[2020-10-18] MEDS ORDERED: fentaNYL 50 MCG/ML SDV IVPUSH ONE (00:33)
[2020-10-18] MEDS ORDERED: Lactated Ringers 500 ML IV ONE (00:35)
== END 2020-10-18 00:50 ==
LOC: MW.ED 21:18
DX: J96.00 Acute respiratory failure, unspecified whether with hypoxia or hypercapnia (principal); U07.1 COVID-19; K92.2 Gastrointestinal hemorrhage, unspecified; I25.10 Atherosclerotic heart disease of native coronary artery without angina pectoris; I11.0 Hypertensive heart disease with heart failure; I50.9 Heart failure, unspecified; E78.00 Pure hypercholesterolemia, unspecified; Z95.5 Presence of coronary angioplasty implant and graft; I25.2 Old myocardial infarction; J44.9 Chronic obstructive pulmonary disease, unspecified; K21.9 Gastro-esophageal reflux disease without esophagitis; M19.90 Unspecified osteoarthritis, unspecified site; F41.9 Anxiety disorder, unspecified; F32.9 Major depressive disorder, single episode, unspecified; E11.9 Type 2 diabetes mellitus without complications; Z88.8 Allergy status to other drugs, medicaments and biological substances; Z91.041 Radiographic dye allergy status; Z79.82 Long term (current) use of aspirin; Z79.4 Long term (current) use of insulin; Z79.01 Long term (current) use of anticoagulants; Z79.899 Other long term (current) drug therapy
CPT/HCPCS: 31500; 36415; 36600; 43752; 51702; 70450; 71045; 80053; 82550; 82803; 82962; 83605; 83880; 84145; 84484; 85025; 85379; 85610; 85730; 87040; 93005; 94002; 96365; 96367; 96375; 99285; J0610; J0692; J3010; J3370; J7050; J7120; 93010; 99291; J1815-GY